=== PATIENT | female | born 1950 | race Caucasian/White ===

== ENCOUNTER 2016-11-11 02:26 | Emergency (ER) | payer OTHER ==
[~2016-11-11] VITALS: Ht 170.2 cm; Wt 94.6 kg
[~2016-11-11 02:26] MED LIST: ACET-1256 PO; CYCL10TA6 PO; NIAC1TAB54 PO; NVLGI SQ; OMEG10007 PO; OXYC15TA89 PO; OXYC1CAP5 PO; TRAM-10 PO
[2016-11-11 02:30] VITALS: Ht 170.2 cm; Wt 94.6 kg
[2016-11-11] MEDS ORDERED: ONDANSETRON 4MG OD TAB PO ONE (02:45)
[2016-11-11] MEDS ORDERED: MoRPHine SULFATE 10 MG/ML CARP/VIAL IM STA (02:45)
--- NOTE | 2016-11-11 03:17 | EMERGENCY ROOM VISIT NOTE ---
History First contact with patient: 02:34 Chief Complaint: BACK PAIN Stated Complaint: BACK PAIN History of Present Illness The patient is a 66 year old female who presents to the Emergency Room with complaints of a flareup of her chronic back pain. She reports that she has had back pain for 10 years which worsens occasionally. She states that she previously saw his surgeon in the [place] area, who recommended that she had surgery, but she was not cleared from a cardiac perspective. She sees her primary care provider for her chronic back pain. She has seen Dr. Altamirano in the past. The patient takes tramadol at home and occasionally takes oxycodone. She states that her pain worsened tonight. It does feel similar to her chronic back pain. She rates the discomfort a 9/10. She denies any numbness or weakness. She denies any bowel or bladder incontinence or urinary symptoms. She denies any abdominal pain, fevers/chills. Review of Systems A complete 10-point Review of Systems was discussed with the patient, with pertinent positives and negatives listed in the History of Present Illness. All remaining Review of Systems questions can be considered negative unless otherwise specified. Past Medical/Surgical History Medical Problems: (1) AC MYOCARD INFARCT,OTH INFERIOR WALL,INIT EPIS CAR (2) ACQ SPONDYLOLISTHESIS (3) Acute pancreatitis (4) ANXIETY STATE NOS (5) ATHEROSCLEROSIS NOS (6) CAD (coronary artery disease) (7) CORONARY ATHEROSCLEROSIS OF [place] CORONARY VESSEL (8) DIAB EULA WO COMPL, TYPE II OR UNSPEC TYPE, NOT UNCNTRLD (9) HYPERLIPIDEMIA NEC/NOS (10) HYPERTENSION NOS (11) Left Knee DJD (12) SCIATICA (13) TOBACCO USE DISORDER (14) Ulcer Surgical Problems: (1) History of appendectomy Family History Diabetes mellitus FH: heart disease FHx: early [place] Hypertension Social History Smoking Status: Never Smoker Alcohol Use: none Marital Status: Housing Status: lives with family Occupation Status: retired Current/Historical Medications Scheduled Amlodipine (Norvasc), 5 MG PO QAM Aspirin (Aspirin Ec), 81 MG PO QAM Atorvastatin (Lipitor), 40 MG PO QPM Cholecalciferol (Vitamin D3), 1 TAB PO DAILY Citalopram (Citalopram Hydrobromide), 40 MG PO QAM Ferrous Gluconate (Ferrous Gluconate), 324 MG PO BIDM Fish Oil ([place]-3), 1 CAP PO BID Furosemide (Furosemide), 20 MG PO QAM Insulin Aspart (Novolog), 2 UNITS SQ QAM Insulin Aspart (Novolog), 4 UNITS SQ BIDM Insulin Detemir (Levemir), 30 UNITS SC BID Lisinopril (Zestril), 40 MG PO QAM Metoprolol Succinate (Metoprolol Succinate ER), 100 MG PO QPM Niacin (Antihyperlipidemic) (Niacin Er), 1,500 MG PO HS Omeprazole (Prilosec), 20 MG PO BID Prasugrel Hcl (Effient), 10 MG PO QAM Scheduled PRN Acetaminophen (Tylenol), 1,000 MG PO Q8 PRN for Pain or Fever Clonazepam (Clonazepam), 0.5-1 TAB PO TID PRN for RN Cyclobenzaprine Hcl (Flexeril), 1 TAB PO HS PRN for PRN Nitroglycerin (Nitrostat), 0.4 MG UT UD PRN for Chest Pain Oxycodone Hcl (Oxycontin), 15 MG PO Q4H PRN for RN Oxycodone Hcl (Oxycodone Hcl), 5 MG PO Q6 PRN for Pain Tramadol (Ultram), 50 MG PO Q4H PRN for Pain Allergies Coded Allergies: Iodinated Diagnostic Agents (Verified Allergy, Intermediate, ITCHING WITH IVP DYE, 09/21/16) Pregabalin (Verified Adverse Reaction, Severe, PANCREATITIS, 09/21/16) Sitagliptin (Verified Adverse Reaction, Severe, PANCREATITIS, 09/21/16) Physical Exam Vital Signs Date Time Temp Pulse Resp B/P Pulse Ox O2 Delivery O2 Flow Rate FiO2 11/11/16 03:26 71 18 102/63 95 11/11/16 02:30 79 18 125/78 97 Room Air Physical Exam VITALS: Vitals are noted on the nurse's note and reviewed by myself. No abnormalities noted. GENERAL: This is a 66-year-old female, in no acute distress, nondiaphoretic, well-developed well-nourished. SKIN: The skin was without rashes, erythema, edema, or bruising. HEART: Regular rate and rhythm without murmurs gallops or rubs. LUNGS: Clear to auscultation bilaterally without wheezes, rales or rhonchi. ABDOMEN: Soft, nontender to palpation. MUSCULOSKELETAL: No muscle atrophy, erythema, or edema noted of the back. There is no tenderness over the lumbar spinous processes. There is no tenderness over the paraspinous muscles. There are no muscle spasms present. Negative straight leg raise test. Strength 5/5 bilateral lower extremities. NEURO: Patient was alert and oriented to person place and time. Normal sensation to light and sharp touch. Deep tendon reflexes 2+ in the lower extremities. Dorsalis pedis pulse 2+ bilaterally. Heel and toe walking is normal. Medical Decision & Procedures Medications Administered Medications (Trade) Dose Ordered Sig/Mateo Route Start Time Stop Time Status Last Admin Dose Admin Morphine Sulfate (MoRPHine SULFATE INJ) 10 mg NOW STAT IM 11/11/16 02:45 11/11/16 02:48 DC 11/11/16 02:52 10 MG Ondansetron HCl (Zofran Odt) 4 mg ONE ONCE PO 11/11/16 02:45 11/11/16 02:48 DC 11/11/16 02:52 4 MG Medical Decision Differential diagnosis includes cauda equina syndrome, cord compression, chronic low back pain, muscle spasm, lumbar strain, epidural abscess, malignancy , among others. The patient was evaluated as above. Previous records were reviewed. The patient has been seen here previously for flareups of her chronic back pain. She was given 10 mg morphine IM and 4 mg Zofran ODT. She will follow-up with her primary care provider for further treatment of her chronic back pain. She verbalized understanding and was discharged home in good condition with her driving. The patient was independently evaluated by Dr. Child, ED attending physician , who agreed with my assessment and treatment plan. Impression Primary Impression: Acute exacerbation of chronic low back pain Departure Information Dispostion Home / Self-Care Condition GOOD Referrals Moira Killian M.D. (PCP) Patient Instructions [facility] Additional Instructions You have been treated in the Emergency Department for Back Pain. You have received pain medicine in the emergency department which impairs your ability to operate a vehicle. It is illegal for you to drive after receiving these medicines. For pain control, you can use the following [id number] medicines (if >12 yo): - Regular strength (325mg/tab) Tylenol (acetaminophen) 2 tabs every 4-6 hours as needed. Do not exceed 12 tablets in a 24 hour period. Avoid taking more than 4 grams (4000 mg) of Tylenol per day. This includes any other sources of acetaminophen you may take on a regular basis. - Regular strength (200 mg/tab) Advil (ibuprofen) 1-2 tabs every 4-6 hours as needed. Do not exceed a dose of 3200 mg per day. If this is an acute injury, ice can be applied to the area of pain for the first 3 days to help decrease pain and inflammation. After the first 3 days, a heating pad can be used over the area for continued soothing relief. You should schedule a follow-up appointment in 2-3 days with your Primary Care Provider for further evaluation and treatment of your back pain. Return to the Emergency Department if your current symptoms worsen despite treatment course outlined above, or if you develop any of the following symptoms : intractable pain despite aforementioned treatment course, loss of control of your bowel or bladder, numbness or tingling in your groin, or development of a fever.
[2016-11-11 03:26] VITALS: BP 102/63; PULSE 71; O2SAT 95
--- NOTE | 2016-11-11 07:13 | EMERGENCY ROOM VISIT NOTE ---
ED Visit Note First contact with patient: 02:34 I have personally evaluated and examined this patient. I agree with assessment and plan of Mari Haley PA-C. 66 yr old female with chronic back issues and periodic flares arrives with typical pain exacerbation. She has no neuro deficits. Post Morphine feeling much improved and requesting discharge. Stable and in no distress at time of discharge.
[2016-11-23] MEDS ORDERED: FERR325T18 PO (00:08)
[2016-11-23] MEDS ORDERED: LISI40TA PO (02:04)
[2016-11-23] MEDS ORDERED: CHOL1000 PO (07:20)
[2016-11-23] MEDS ORDERED: LVMI SC (13:58)
[2016-11-23] MEDS ORDERED: PRAS1TAB6 PO (13:58)
[2016-11-23] MEDS ORDERED: KLN1X PO (13:58)
[2016-11-23] MEDS ORDERED: OMEP20CA9 PO (15:49)
[2016-11-23] MEDS ORDERED: CITA40TA4 PO (15:49)
[2016-11-23] MEDS ORDERED: TPRSR/100 PO (15:49)
[2016-11-23] MEDS ORDERED: LSX20 PO (15:49)
[2016-12-08] MEDS ORDERED: TRAM-10 PO (09:50)
== END 2016-11-11 03:27 | disposition home or self-care (01) ==
LOC: C.EDB 02:27 → C.EDA 03:27
DX: M54.5 Low back pain (principal); G89.29 Other chronic pain; F17.200 Nicotine dependence, unspecified, uncomplicated; F41.9 Anxiety disorder, unspecified; I25.10 Atherosclerotic heart disease of native coronary artery without angina pectoris; E11.9 Type 2 diabetes mellitus without complications; E78.5 Hyperlipidemia, unspecified; I10 Essential (primary) hypertension; Z79.82 Long term (current) use of aspirin; Z79.4 Long term (current) use of insulin

== ENCOUNTER 2016-11-15 18:17 | Emergency (ER) | payer OTHER ==
[~2016-11-15] VITALS: Ht 170.2 cm; Wt 94.3 kg
[2016-11-15 18:22] VITALS: BP 137/82; PULSE 73; TEMP 36.6; O2SAT 96; Ht 170.2 cm; Wt 94.3 kg
[2016-11-15] MEDS ORDERED: ONDANSETRON 4MG OD TAB PO STA (19:51)
[2016-11-15] MEDS ORDERED: MoRPHine SULFATE 10 MG/ML CARP/VIAL IM STA (19:51)
[2016-11-15] MEDS ORDERED: HYDR-5688 PO (19:54)
--- NOTE | 2016-11-19 08:46 | EMERGENCY ROOM VISIT NOTE ---
ED Visit Note First contact with patient: 18:37 Chief Complaint: Back pain. History of Present Illness: Ms. London is a 66-year-old white female who ambulates into the ED accompanied by a male friend complaining of lumbar back pain. Historically patient reports she has a history of diabetes, chronic back pain and coronary artery disease. Patient reports approximate 4 hours before she arrived in the emergency department she was getting out of her car when she twisted her back and felt a popping sensation and had an acute onset of pain. She then reports she was then walking down stairs in her house, lost her balance and slid down 2 stairs on her buttocks. Since that time she reports she's been having severe pain in the lower back. She describes her pain as a deep achy sensation that becomes sharp with movement. She rates her discomfort 9/10. Her pain is radiating into both buttocks but not down the legs. Her pain worsens with all movements of the back and palpation. She has not identified any alleviating factors related to the pain. She reports she has not taken any medication for pain prior to arrival at the hospital. She denies any associated symptoms including fevers, chills, sweats, skin eruptions, skin color changes, neck and thoracic back pain , striking her head at the time of the fall, loss of consciousness at the time of the fall, chest pain, shortness of breath, abdominal pain, nausea, vomiting, lower extremity weakness/numbness/tingling, genital/rectal paresthesias, bowel and bladder dysfunction. Review of Systems: As noted above in history of present illness. All body systems were reviewed and found to be negative as noted above. Past Medical History: Coronary artery disease, [place] 3 with stent placement, hypertension, hypercholesterolemia, gastric reflux, hiatal hernia, obesity, degenerative joint disease, status post total left knee arthroplasty. Current Medications: Medications Dose Route/Sig Max Daily Dose Days Date Category Dose Instructions Oxycodone Hcl 5 Mg Cap 5 Mg PO Q6 PRN 30 09/21/16 Reported take as needed for pain Ferrous Gluconate 324 Mg Tab 324 Mg PO BIDM 09/21/16 Reported Tylenol (Acetaminophen) 500 Mg Tab 1,000 Mg PO Q8 PRN 09/21/16 Reported Vitamin D3 (Cholecalciferol) 1,000 Unit Tab 1 Tab PO DAILY 30 08/24/16 Reported [place]-3 (Fish Oil) 1 Ea Cap 1 Cap PO BID 07/27/16 Reported Flexeril (Cyclobenzaprine Hcl) 10 Mg Tab 1 Tab PO HS PRN 30 07/27/16 Reported Effient (Prasugrel Hcl) 10 Mg Tab 10 Mg PO QAM 07/27/16 Reported Levemir (Insulin Detemir) 100 Units/Ml Inj 30 Units SC BID 07/27/16 Reported Oxycontin (Oxycodone Hcl) 15 Mg Tab 15 Mg PO Q4H PRN 07/27/16 Reported Clonazepam 1 Mg Tab 0.5-1 Tab PO TID PRN 07/27/16 Reported Citalopram Hydrobromide (Citalopram) 40 Mg Tab 40 Mg PO QAM 06/22/16 Reported Prilosec (Omeprazole) 20 Mg Cap 20 Mg PO BID 06/22/16 Reported TAKE THIS MEDICATION TWICE DAILY 30 MINUTES BEFORE A MEAL. Niacin Er (Niacin (Antihyperlipidemic)) 750 Mg Tab 1,500 Mg PO HS 06/22/16 Reported TAKE TWO TABLETS AT BEDTIME AFTER A LOW FAT SNACK. Furosemide 20 Mg Tab 20 Mg PO QAM 06/22/16 Reported Metoprolol Succinate ER (Metoprolol Succinate) 100 Mg Tabcr 100 Mg PO QPM 06/22/16 Reported Novolog (Insulin Aspart) Inj 4 Units SQ BIDM 06/04/16 Reported ADMINISTER 4 UNITS BEFORE LUNCH & SUPPER Novolog (Insulin Aspart) Inj 2 Units SQ QAM 06/04/16 Reported ADMINISTER BEFORE BREAKFAST Norvasc (Amlodipine Besylate) 5 Mg Tab 5 Mg PO QAM 06/04/16 Reported Nitrostat (Nitroglycerin) 0.4 Mg Sub 0.4 Mg UT UD PRN 07/14/[address] ONE TABLET UNDER THE TONGUE EVERY 5 MINUTES FOR UP TO 3 DOSES IF NEEDED FOR CHEST PAIN. Lipitor (Atorvastatin) 40 Mg Tab 40 Mg PO QPM 07/14/15 Reported Aspirin Ec (Aspirin) 81 Mg Tab 81 Mg PO QAM 07/14/15 Reported Zestril (Lisinopril) 40 Mg Tab 40 Mg PO QAM 03/15/12 Reported Ultram (Tramadol HCl) 50 Mg Tab 50 Mg PO Q4H PRN 09/08/08 Reported Allergies to Medications: Contrast dye, pregabalin, sitagliptin. Social History: Patient is currently employed; she lives with her and feels safe in her home environment; she denies tobacco and alcohol use. Physical Examination: Vital Signs: Date Time Temp Pulse Resp B/P Pulse Ox O2 Delivery O2 Flow Rate FiO2 11/15/16 18:22 36.6 73 18 137/82 96 Room Air GENERAL: 66-year-old female in mild to moderate distress due to pain, nontoxic- appearing, afebrile and hemodynamically stable. Patient is found pacing around her room. NEUROLOGICAL: Awake, alert and oriented to person, place and time. Answering questions appropriately and following commands. Normal gait. Good hand eye coordination. No focal motor sensory deficits. SKIN: Warm, dry and pink. No soft tissue trauma noted. BACK: No tenderness over the bony cervical and thoracic spine. No CVA tenderness. Mild to moderate tenderness over the L5-S1 area bilaterally in a bandlike fashion across the back. No muscle spasm palpable. No bony deformity or crepitus of the lumbar or sacral spine. Positive straight leg raise test; patient was not able to relax and I believe this test is invalid. THORAX: Lungs sounds are clear to auscultation and equal bilaterally with symmetrical chest wall. No wheezing, rales or rhonchi. No crepitus, tenderness , subcutaneous air or deformities noted. HEART: Regular rate and rhythm. No gallops, rubs or murmurs are appreciated. ABDOMEN: Flat, soft and nontender. Positive bowel sounds in all quadrants. No guarding, rigidity or organomegaly. LOWER EXTREMITIES: No gross bony deformity. 3/5 muscle strength in flexion, extension, abduction and abduction of the hips, flexion and extension of the knees, plantar flexion and dorsiflexion of the ankles and flexion and extension of the great toes. 2+ patellar and Achilles deep tendon reflexes intact and equal bilaterally. She was able to distinguish light sensations through all dermatomes of the lower legs and feet. Feet were warm and pink and capillary refill is brisk. ED Course: Patient is assessed as noted above. Patient was given an injection of 8 mg of morphine IV and was given 4 mg of Zofran IV. I did have a lengthy conversation with the patient concerning pain management she reports she has been talking to her family physician who will be putting her on [place] 5/325 mg tablet 3 times a day for pain control. She reports this is supposed to start in the next week; because of her fall and pain I did report that I would start this program but she would need to follow-up with her family doctor to have it continued. Patient was educated about tonight's findings and instructed on her treatment plan; she verbalized understanding and agreement with this plan. Clinical Impression: Acute on chronic back pain. Disposition: Patient discharged home in stable condition accompanied by her ; prior to departure she was reassessed and subjectively reported she was feeling better and rated her discomfort 4/10. Plan: Patient was prescribed Hawley 02/09/2025 every 8 hours as needed for pain. Patient was encouraged to continue her other medications. Patient was encouraged to follow-up with her PCP. Patient was encouraged return the ED for worsening pain, fevers, rectal/genital paresthesias, bowel and bladder dysfunction, lower extremity weakness/numbness/ tingling or any new/concerning symptoms.
[2016-11-23] MEDS ORDERED: FERR325T18 PO (00:08)
[2016-11-23] MEDS ORDERED: LISI40TA PO (02:04)
[2016-11-23] MEDS ORDERED: CHOL1000 PO (07:20)
[2016-11-23] MEDS ORDERED: KLN1X PO (13:58)
[2016-11-23] MEDS ORDERED: LVMI SC (13:58)
[2016-11-23] MEDS ORDERED: PRAS1TAB6 PO (13:58)
[2016-11-23] MEDS ORDERED: CITA40TA4 PO (15:49)
[2016-11-23] MEDS ORDERED: OMEP20CA9 PO (15:49)
[2016-11-23] MEDS ORDERED: TPRSR/100 PO (15:49)
[2016-11-23] MEDS ORDERED: LSX20 PO (15:49)
[2016-12-08] MEDS ORDERED: TRAM-10 PO (09:50)
== END 2016-11-15 20:56 | disposition home or self-care (01) ==
LOC: C.EDB 18:18 → C.EDD 20:56
DX: M54.5 Low back pain (principal); G89.29 Other chronic pain; I25.10 Atherosclerotic heart disease of native coronary artery without angina pectoris; I25.2 Old myocardial infarction; I10 Essential (primary) hypertension; E78.00 Pure hypercholesterolemia, unspecified; K21.9 Gastro-esophageal reflux disease without esophagitis; Z96.652 Presence of left artificial knee joint

== ENCOUNTER 2016-11-23 16:50 | Emergency (ER) | payer OTHER ==
[~2016-11-23] VITALS: Ht 170.2 cm; Wt 94.3 kg
[~2016-11-23 16:50] MED LIST changes: +CHOL1000 PO; +CITA40TA4 PO; +FERR325T18 PO; +HYDR-5688 PO; +KLN1X PO; +LISI40TA PO; +LSX20 PO; +LVMI SC; +OMEP20CA9 PO; +PRAS1TAB6 PO; +TPRSR/100 PO
[2016-11-23 16:53] VITALS: TEMP 36.5; Ht 170.2 cm; Wt 94.3 kg
[2016-11-23] MEDS ORDERED: NVLG SQ (17:15)
[2016-11-23 18:14] LABS: BASO % 0.6 %; BASO ABS # 0.04 K/uL (0-0.2); COMPLETE YES; EOS % 4.2 %; HEMATOCRIT 34.9 % (37-47); IG% 0.4 %; LYMPH ABS # 2.88 K/uL (1.2-3.4); MEAN CELL VOLUME 79.5 fL (80-100); MEAN CORPUSCULAR HEMOGLOBIN 25.3 pg (25-34); MEAN CORPUSCULAR HGB CONC 31.8 g/dl (32-36); MEAN PLATELET VOLUME 8.7 fL (7.4-10.4); MONO % 10.8 %; PLATELET COUNT 352 K/uL (130-400); RED BLOOD COUNT 4.39 M/uL (4.2-5.4); WHITE BLOOD COUNT 6.69 K/uL (4.8-10.8)
[2016-11-23 18:32] LABS: ALT/SGPT 16 U/L (12-78); BLOOD UREA NITROGEN 25 mg/dl (7-18); BUN/CREATININE RATIO 19.4 (10-20); CALCIUM 8.6 mg/dl (8.5-10.1); CARBON DIOXIDE 21 mmol/L (21-32); CHLORIDE 106 mmol/L (98-107); GLUCOSE 175 mg/dl (70-99); POTASSIUM 4.2 mmol/L (3.5-5.1); SODIUM 139 mmol/L (136-145)
[2016-11-23 18:35] LABS: ALKALINE PHOSPHATASE 85 U/L (45-117); AST/SGOT 13 U/L (15-37)
--- NOTE | 2016-11-23 18:49 | DIAGNOSTIC IMAGING REPORT ---
CT LUMBAR SPINE WITHOUT CT DOSE: 1187.26 mGy.cm CLINICAL HISTORY: Ongoing pain after fall TECHNIQUE: Axial images of the lumbar spine were obtained without IV contrast. Sagittal and coronal reconstructions were viewed. COMPARISON STUDY: Lumbar spine CT June 04, 2016. FINDINGS: 7 mm of anterolisthesis of L4 and L5 is unchanged since exam of June 04, 2016. No acute fracture is identified. Slight concavity of the superior endplate of L3 is unchanged. No suspicious lesion is identified. Disc space narrowing at multiple levels is again noted. This is most pronounced at L4-L5. This vacuum disc phenomenon at this level. Central canal and neural foramen are suboptimally assessed by CT. Severe central canal stenosis is noted at L4-L5. This appears unchanged. There is central canal stenosis at L2-L3, L4-L5 and L5-S1 as well. Scarring within the upper pole of the left kidney is incidentally noted. There is extensive atherosclerotic plaque of the abdominal aorta. IMPRESSION: 1. No acute lumbar spine fracture or subluxation. 2. No change in grade I anterolisthesis of L4 and L5 since CT of June 04, 2016. 3. Severe central canal stenosis at L4-L5 which appears similar to prior exam. Central canal stenosis at multiple additional levels which is suboptimally assessed by CT. Moderate multilevel degenerative disc disease and facet arthrosis. Electronically signed by: Wolfgang Baumann M.D. 11/23/2016 6:48 PM Dictated Date/Time: 11/23/2016 6:42 PM
--- NOTE | 2016-11-23 19:29 | EMERGENCY ROOM VISIT NOTE ---
ED Visit Note First contact with patient: 17:02 Patient was seen by our PA/FORM DRAFTER. I was involved in the patient's care and did evaluate the patient myself. I was involved in the care throughout the ER stay. The patient presents with lower back pain. She has no neurologic deficits. She has a history of back issues. Workup here is unrevealing. She does have some spinal stenosis on CT but this has been known. The patient is being discharged with Ultram for pain, she has used this in the past with success. Follow up with her doctors office and possibly pain management were suggested.
[2016-11-23] MEDS ORDERED: TRAMADOL HCL 50 MG HOME PACK PO ONE (19:30)
[2016-11-23] MEDS ORDERED: NORCO 5/325MG HOME PACK PO ONE (19:30)
[2016-11-23] MEDS ORDERED: TRAM-10 PO (19:32)
[2016-11-23 19:44] LABS: URINE APPEARANCE CLEAR (CLEAR); URINE BILIRUBIN NEG (NEG); URINE COLOR YELLOW; URINE EPITHELIAL CELL AUTO 20-30 /lpf (0-5); URINE NITRITE NEG (NEG); URINE PH 5.5 (4.5-7.5); URINE SPECIFIC GRAVITY 1.019 (1.000-1.030); UROBILINOGEN NEG (NEG)
[2016-11-23 19:46] LABS: MANUAL MICROSCOPIC REQUIRED? NO; REVIEW REQ? NO
[2016-11-23 19:49] VITALS: BP 134/72; PULSE 78; O2SAT 98
[2016-11-23] MEDS ORDERED: AMLO-110 PO (22:20)
[2016-11-23] MEDS ORDERED: NITR0.4S UT (23:03)
[2016-11-23] MEDS ORDERED: ASPI81TA28 PO (23:03)
[2016-11-23] MEDS ORDERED: LPT/40 PO (23:03)
--- NOTE | 2016-11-24 00:43 | EMERGENCY ROOM VISIT NOTE ---
ED Visit Note First contact with patient: 17:02 Chief Complaint: Back pain. History of Present Illness: Ms. London is a 66-year-old white female who ambulates into the ED accompanied by a her complaining of lumbar back pain. Historically patient reports she has a history of diabetes, chronic back pain and coronary artery disease. I did see Ms. London on November 15 for exacerbation of her chronic back pain. Tonight she reports approximately 2 weeks ago she was walking her daughters dog and was pulled to the ground; this information was not provided earlier. Patient reports approximate last 2 days before she arrived in the emergency department she was having increasing pain in the bilateral sacroiliac joint area. Since that time she reports she's been having severe pain in the lower back. She describes her pain as a deep achy sensation that becomes sharp with movement. She rates her discomfort 9/10. Her pain is radiating into both buttocks but not down the legs. Her pain worsens with all movements of the back and palpation. She has not identified any alleviating factors related to the pain. She reports she has not taken any medication for pain prior to arrival at the hospital. She denies any associated symptoms including fevers, chills, sweats, skin eruptions, skin color changes, neck and thoracic back pain , striking her head at the time of the fall, loss of consciousness at the time of the fall, chest pain, shortness of breath, abdominal pain, nausea, vomiting, lower extremity weakness/numbness/tingling, genital/rectal paresthesias, bowel and bladder dysfunction. Review of Systems: As noted above in history of present illness. All body systems were reviewed and found to be negative as noted above. Past Medical History: Coronary artery disease, [place] 3 with stent placement, hypertension, hypercholesterolemia, gastric reflux, hiatal hernia, obesity, degenerative joint disease, status post total left knee arthroplasty. Current Medications: Medications Dose Route/Sig Max Daily Dose Days Date Category Dose Instructions Novolog (Insulin Aspart) 100 Units/Ml Inj SQ AC 11/23/16 Reported [place] 5MG/325MG (Acetaminophen/Hydrocodone Bitart) Tab 1 Tablet PO Q8 PRN 11/15/16 Rx For Initial Treatment Ferrous Gluconate 324 Mg Tab 324 Mg PO DAILY 09/21/16 Reported Vitamin D3 (Cholecalciferol) 1,000 Unit Tab 1 Tab PO DAILY 30 08/24/16 Reported Effient (Prasugrel Hcl) 10 Mg Tab 10 Mg PO QAM 07/27/16 Reported Levemir (Insulin Detemir) 100 Units/Ml Inj 30 Units SC BID 07/27/16 Reported Clonazepam 1 Mg Tab 0.5-1 Tab PO TID PRN 07/27/16 Reported Citalopram Hydrobromide (Citalopram) 40 Mg Tab 40 Mg PO QAM 06/22/16 Reported Prilosec (Omeprazole) 20 Mg Cap 20 Mg PO BID 06/22/16 Reported TAKE THIS MEDICATION TWICE DAILY 30 MINUTES BEFORE A MEAL. Furosemide 20 Mg Tab 20 Mg PO QAM 06/22/16 Reported Metoprolol Succinate ER (Metoprolol Succinate) 100 Mg Tabcr 100 Mg PO QPM 06/22/16 Reported Norvasc (Amlodipine Besylate) 5 Mg Tab 5 Mg PO QAM 06/04/16 Reported Nitrostat (Nitroglycerin) 0.4 Mg Sub 0.4 Mg UT UD PRN 07/14/[address] ONE TABLET UNDER THE TONGUE EVERY 5 MINUTES FOR UP TO 3 DOSES IF NEEDED FOR CHEST PAIN. Lipitor (Atorvastatin) 40 Mg Tab 40 Mg PO QPM 07/14/15 Reported Aspirin Ec (Aspirin) 81 Mg Tab 81 Mg PO QAM 07/14/15 Reported Zestril (Lisinopril) 40 Mg Tab 40 Mg PO QAM 03/15/12 Reported Ultram (Tramadol HCl) 50 Mg Tab 50 Mg PO Q4H PRN 09/08/08 Reported Allergies to Medications: Contrast dye, pregabalin, sitagliptin. Social History: Patient is currently employed; she lives with her and feels safe in her home environment; she denies tobacco and alcohol use. Physical Examination: Vital Signs: Date Time Temp Pulse Resp B/P Pulse Ox O2 Delivery O2 Flow Rate FiO2 11/23/16 19:49 78 20 134/72 98 11/23/16 18:59 70 18 130/72 97 Room Air 11/23/16 16:53 36.5 73 18 131/66 99 Room Air GENERAL: 66-year-old female in mild to moderate distress due to pain, nontoxic- appearing, afebrile and hemodynamically stable. Patient is found lying on the bed slightly somnolent but easily arousable to verbal stimuli. NEUROLOGICAL: She is alert and oriented to person, place and time. Answering questions appropriately and following commands. Normal gait. Good hand eye coordination. No focal motor sensory deficits. SKIN: Warm, dry and pink. No soft tissue trauma noted. BACK: No tenderness over the bony cervical and thoracic spine. No CVA tenderness. Mild to moderate tenderness over the L5-S1 area bilaterally in a bandlike fashion across the back. No muscle spasm palpable. No bony deformity or crepitus of the lumbar or sacral spine. Positive straight leg raise test; patient was not able to relax and I believe this test is invalid. THORAX: Lungs sounds are clear to auscultation and equal bilaterally with symmetrical chest wall. No wheezing, rales or rhonchi. No crepitus, tenderness , subcutaneous air or deformities noted. HEART: Regular rate and rhythm. No gallops, rubs or murmurs are appreciated. ABDOMEN: Slightly obese, soft and nontender. Positive bowel sounds in all quadrants. No guarding, rigidity or organomegaly. LOWER EXTREMITIES: No gross bony deformity. 3/5 muscle strength in flexion, extension, abduction and abduction of the hips, flexion and extension of the knees, plantar flexion and dorsiflexion of the ankles and flexion and extension of the great toes. 2+ patellar and Achilles deep tendon reflexes intact and equal bilaterally. She was able to distinguish light sensations through all dermatomes of the lower legs and feet. Feet were warm and pink and capillary refill is brisk. ED Course: Patient is assessed as noted above. Laboratory Testing: Test 11/23/16 18:05 11/23/16 19:03 Range/Units White Blood Count 6.69 4.8-10.8 K/uL Red Blood Count 4.39 4.2-5.4 M/uL Hemoglobin 11.1 12.0-16.0 g/dL Hematocrit 34.9 37-47 % Mean Corpuscular Volume 79.5 80-100 fL Mean Corpuscular Hemoglobin 25.3 25-34 pg Mean Corpuscular Hemoglobin Concent 31.8 32-36 g/dl Platelet Count 352 130-400 K/uL Mean Platelet Volume 8.7 7.4-10.4 fL Neutrophils (%) (Auto) 41.0 % Lymphocytes (%) (Auto) 43.0 % Monocytes (%) (Auto) 10.8 % Eosinophils (%) (Auto) 4.2 % Basophils (%) (Auto) 0.6 % Neutrophils # (Auto) 2.74 1.4-6.5 K/uL Lymphocytes # (Auto) 2.88 1.2-3.4 K/uL Monocytes # (Auto) 0.72 0.11-0.59 K/uL Eosinophils # (Auto) 0.28 0-0.5 K/uL Basophils # (Auto) 0.04 0-0.2 K/uL RDW Standard Deviation 47.6 36.4-46.3 fL RDW Coefficient of Variation 16.3 11.5-14.5 % Immature Granulocyte % (Auto) 0.4 % Immature Granulocyte # (Auto) 0.03 0.00-0.02 K/uL Sodium Level 139 136-145 mmol/L Potassium Level 4.2 3.5-5.1 mmol/L Chloride Level 106 98-107 mmol/L Carbon Dioxide Level 21 21-32 mmol/L Anion Gap 12.0 3-11 mmol/L Blood Urea Nitrogen 25 7-18 mg/dl Creatinine 1.30 0.60-1.20 mg/dl Est Creatinine Clear Calc Drug Dose 50.9 ml/min Estimated GFR () 49.9 Estimated GFR (Non- 43.0 BUN/Creatinine Ratio 19.4 10-20 Random Glucose 175 70-99 mg/dl Calcium Level 8.6 8.5-10.1 mg/dl Total Bilirubin 0.4 0.2-1 mg/dl Direct Bilirubin < 0.1 0-0.2 mg/dl Aspartate Amino Transf (AST/SGOT) 13 15-37 U/L Alanine Aminotransferase (ALT/SGPT) 16 12-78 U/L Alkaline Phosphatase 85 45-117 U/L Total Protein 7.9 6.4-8.2 gm/dl Albumin 3.7 3.4-5.0 gm/dl Lipase 231 73-393 U/L Urine Color YELLOW Urine Appearance CLEAR CLEAR Urine pH 5.5 4.5-7.5 Urine Specific [place] 1.019 1.000-1.030 Urine Protein NEG NEG Urine Glucose (UA) NEG NEG Urine Ketones NEG NEG Urine Occult Blood NEG NEG Urine Nitrite NEG NEG Urine Bilirubin NEG NEG Urine Urobilinogen NEG NEG Urine Leukocyte Esterase TRACE NEG Urine WBC (Auto) 1-5 0-5 /hpf Urine RBC (Auto) 0-4 0-4 /hpf Urine Hyaline Casts (Auto) 1-5 0-5 /lpf Urine Epithelial Cells (Auto) 20-30 0-5 /lpf Urine Bacteria (Auto) NEG NEG Lower Spine CT Scan: Was reviewed by myself and read by the radiologist showing no acute lumbar or spinal fractures or subluxations. No change in the grade 1 anterolisthesis of L4-L5 from previous CT and severe canal stenosis at L4-L5 which is similar to prior exam. Patient was educated about tonight's findings and instructed on her treatment plan; she verbalized understanding and agreement with this plan. Clinical Impression: Acute on chronic back pain. Disposition: Patient discharged home in stable condition accompanied by her ; prior to departure she was reassessed and subjectively reported she was feeling better and rated her discomfort 4/10. Plan: Patient was prescribed Ultram 5100 mg every 6 hours as needed for pain. Patient was given a small prescription of [place] tablets for breakthrough pain. Other comfort measures were discussed with the patient clinging proper lifting techniques and ice. Patient was encouraged to keep with her family care provider for definitive care and treatment. Patient was encouraged to return ED for uncontrolled pain, fevers, chills, skin eruptions, leg weakness/numbness/tingling, inability to control bowel and bladder function, genital/rectal paresthesia new/concerning symptoms.
[2016-12-08] MEDS ORDERED: TRAM-10 PO (09:50)
== END 2016-11-23 19:50 | disposition home or self-care (01) ==
LOC: C.EDB 16:54 → C.EDD 19:50
DX: M54.9 Dorsalgia, unspecified (principal); G89.29 Other chronic pain; I10 Essential (primary) hypertension; E78.00 Pure hypercholesterolemia, unspecified; I25.10 Atherosclerotic heart disease of native coronary artery without angina pectoris; I25.2 Old myocardial infarction; K21.9 Gastro-esophageal reflux disease without esophagitis

== ENCOUNTER 2017-03-19 11:04 | Emergency (ER) | payer OTHER ==
[~2017-03-19] VITALS: Ht 165.1 cm; Wt 92.1 kg
[~2017-03-19 11:04] MED LIST changes: -ACET-1256 PO; +AMLO-110 PO; +ASPI81TA28 PO; -CYCL10TA6 PO; -HYDR-5688 PO; +LPT/40 PO; -NIAC1TAB54 PO; +NITR0.4S UT; +NVLG SQ; -NVLGI SQ; -OMEG10007 PO; -OXYC15TA89 PO; -OXYC1CAP5 PO
[2017-03-19 11:06] VITALS: TEMP 36.7; Ht 165.1 cm; Wt 92.1 kg
[2017-03-19] MEDS ORDERED: CLONAZEPAM 1 MG TAB PO STA (11:41)
[2017-03-19] MEDS ORDERED: HYDROCODONE/ACETAMOPHEN 5/325MG TAB PO STA (11:41)
--- NOTE | 2017-03-19 12:12 | EMERGENCY ROOM VISIT NOTE ---
ED Visit Note First contact with patient: 11:27 I have seen and examined this patient with Johana Silver and generally agree with the treatment plan as discussed. Problem List Medical Problems: (1) AC MYOCARD INFARCT,OTH INFERIOR WALL,INIT EPIS CAR Status: Chronic (2) ACQ SPONDYLOLISTHESIS Status: Chronic (3) Acute pancreatitis Status: Resolved (4) ANXIETY STATE NOS Status: Chronic (5) ATHEROSCLEROSIS NOS Status: Chronic (6) CAD (coronary artery disease) Status: Chronic (7) CORONARY ATHEROSCLEROSIS OF [place] CORONARY VESSEL Status: Chronic (8) DIAB EULA WO COMPL, TYPE II OR UNSPEC TYPE, NOT UNCNTRLD Status: Chronic (9) HYPERLIPIDEMIA NEC/NOS Status: Chronic (10) HYPERTENSION NOS Status: Chronic (11) SCIATICA Status: Chronic (12) TOBACCO USE DISORDER Status: Chronic (13) Ulcer Status: Chronic Surgical Problems: (1) History of appendectomy Status: Chronic Current/Historical Medications Scheduled Amlodipine (Norvasc), 5 MG PO QAM Aspirin (Aspirin Ec), 81 MG PO QAM Atorvastatin (Lipitor), 40 MG PO QPM Cholecalciferol (Vitamin D3), 1 TAB PO DAILY Citalopram (Citalopram Hydrobromide), 40 MG PO QAM Ferrous Gluconate (Ferrous Gluconate), 324 MG PO DAILY Furosemide (Furosemide), 20 MG PO QAM Insulin Aspart (Novolog), SQ AC Insulin Detemir (Levemir), 30 UNITS SC BID Lisinopril (Zestril), 40 MG PO QAM Metoprolol Succinate (Metoprolol Succinate ER), 100 MG PO QPM Omeprazole (Prilosec), 20 MG PO BID Prasugrel Hcl (Effient), 10 MG PO QAM Tramadol (Ultram), 200 MG PO HS Scheduled PRN Clonazepam (Clonazepam), 0.5-1 TAB PO TID PRN for RN Nitroglycerin (Nitrostat), 0.4 MG UT UD PRN for Chest Pain Allergies Coded Allergies: Niacin (Verified Allergy, Severe, ITCHING,BURNING, 03/19/17) Iodinated Diagnostic Agents (Verified Allergy, Intermediate, ITCHING WITH IVP DYE, 03/19/17) Pregabalin (Verified Adverse Reaction, Severe, PANCREATITIS, 03/19/17) Sitagliptin (Verified Adverse Reaction, Severe, PANCREATITIS, 03/19/17) Vital Signs Date Time Temp Pulse Resp B/P (MAP) Pulse Ox O2 Delivery O2 Flow Rate FiO2 03/19/17 11:06 36.7 69 18 154/82 95 Room Air Medications Administered Medications (Trade) Dose Ordered Sig/Mateo Route Start Time Stop Time Status Last Admin Dose Admin Clonazepam (Klonopin Tab) 1 mg NOW STAT PO 03/19/17 11:41 03/19/17 11:43 DC 03/19/17 12:00 1 MG Acetaminophen/ Hydrocodone Bitart ([place] 5/325 Tab) 2 tab NOW STAT PO 03/19/17 11:41 03/19/17 11:44 DC 03/19/17 12:00 2 TAB Departure Information Referrals Moira Killian M.D. (PCP) Patient Instructions [facility]
--- NOTE | 2017-03-19 12:42 | EMERGENCY ROOM VISIT NOTE ---
History First contact with patient: 11:27 Chief Complaint: NECK PAIN Stated Complaint: NECK PAIN History of Present Illness The patient is a 66 year old female who presents to the Emergency Room with complaints of left-sided neck pain. The patient has chronic neck pain and fell asleep last evening in her living room chair. She fell out of the chair while she was sleeping and woke up abruptly as she hit the floor. The patient denies any headache, visual changes, dizziness or loss of consciousness. The patient states that the pain is mainly on the left side of her neck into her shoulder. The patient denies any numbness and tingling in her extremities. The patient denies any arm weakness. The patient states that prior to her fall she took tramadol 200 mg mid day. She also had taken a muscle relaxer clonazepam before bed. She has not taken anything since the injury occurred. Review of Systems 6 system review was performed and was negative unless stated otherwise in history of present illness. Past Medical/Surgical History Medical Problems: (1) AC MYOCARD INFARCT,OTH INFERIOR WALL,INIT EPIS CAR (2) ACQ SPONDYLOLISTHESIS (3) Acute pancreatitis (4) ANXIETY STATE NOS (5) ATHEROSCLEROSIS NOS (6) CAD (coronary artery disease) (7) CORONARY ATHEROSCLEROSIS OF [place] CORONARY VESSEL (8) DIAB EULA WO COMPL, TYPE II OR UNSPEC TYPE, NOT UNCNTRLD (9) HYPERLIPIDEMIA NEC/NOS (10) HYPERTENSION NOS (11) Left Knee DJD (12) SCIATICA (13) TOBACCO USE DISORDER (14) Ulcer Surgical Problems: (1) History of appendectomy Family History Diabetes mellitus FH: heart disease FHx: early [place] Hypertension Social History Smoking Status: Never Smoker Alcohol Use: none Marital Status: Housing Status: lives with family Occupation Status: retired Current/Historical Medications Scheduled Amlodipine (Norvasc), 5 MG PO QAM Aspirin (Aspirin Ec), 81 MG PO QAM Atorvastatin (Lipitor), 40 MG PO QPM Cholecalciferol (Vitamin D3), 1 TAB PO DAILY Citalopram (Citalopram Hydrobromide), 40 MG PO QAM Ferrous Gluconate (Ferrous Gluconate), 324 MG PO DAILY Furosemide (Furosemide), 20 MG PO QAM Insulin Aspart (Novolog), SQ AC Insulin Detemir (Levemir), 30 UNITS SC BID Lisinopril (Zestril), 40 MG PO QAM Metoprolol Succinate (Metoprolol Succinate ER), 100 MG PO QPM Omeprazole (Prilosec), 20 MG PO BID Prasugrel Hcl (Effient), 10 MG PO QAM Tramadol (Ultram), 200 MG PO HS Scheduled PRN Clonazepam (Clonazepam), 0.5-1 TAB PO TID PRN for RN Nitroglycerin (Nitrostat), 0.4 MG UT UD PRN for Chest Pain Allergies Coded Allergies: Niacin (Verified Allergy, Severe, ITCHING,BURNING, 03/19/17) Iodinated Diagnostic Agents (Verified Allergy, Intermediate, ITCHING WITH IVP DYE, 03/19/17) Pregabalin (Verified Adverse Reaction, Severe, PANCREATITIS, 03/19/17) Sitagliptin (Verified Adverse Reaction, Severe, PANCREATITIS, 03/19/17) Physical Exam Vital Signs Date Time Temp Pulse Resp B/P (MAP) Pulse Ox O2 Delivery O2 Flow Rate FiO2 03/19/17 11:06 36.7 69 18 154/82 95 Room Air Physical Exam GENERAL: 66-year-old white female appears in no acute distress. MENTAL Status: Alert and oriented 3. HEAD: Atraumatic, nontender to palpation. EYES: PERRLA. EOMs intact. NEURO:Cranial nerves two through 12 intact. Cerebellar function intact with [id number]. Fine motor intact with alternating finger motions. CERVICAL SPINE: No gross bony deformity noted. The patient is nontender to palpation over the spinous processes. She is tender to palpation over the left paravertebral region, over the left trapezius. Full range of motion with pain elicited with flexion, right rotation and right lateral bending. Muscle strength is 5 out of 5 bilateral upper extremities and symmetrical. Medical Decision & Procedures Medications Administered Medications (Trade) Dose Ordered Sig/Mateo Route Start Time Stop Time Status Last Admin Dose Admin Clonazepam (Klonopin Tab) 1 mg NOW STAT PO 03/19/17 11:41 03/19/17 11:43 DC 03/19/17 12:00 1 MG Acetaminophen/ Hydrocodone Bitart ([place] 5/325 Tab) 2 tab NOW STAT PO 03/19/17 11:41 03/19/17 11:44 DC 03/19/17 12:00 2 TAB ED Course The patient was evaluated. The patient was given clonazepam 1 mg by mouth and [place] 5/325 mg 2 tablets by mouth for pain. She was also placed in a soft cervical collar. The patient was independently evaluated by Dr. Mcgarry who agreed with treatment plan. The patient was reevaluated and was feeling much better. The patient was discharged home with her spouse driving. Medical Decision I did not feel x-rays were necessary since the patient did not have any tenderness over the spinous processes. Impression Primary Impression: Strain of cervical portion of left trapezius muscle Departure Information Dispostion Home / Self-Care Condition GOOD Referrals Moira Killian M.D. (PCP) Forms HOME CARE DOCUMENTATION FORM, IMPORTANT VISIT INFORMATION, WORK / SCHOOL INSTRUCTIONS Patient Instructions [facility] elicit Additional Instructions Continue tramadol as prescribed for pain. Also continue your clonazepam as directed. Wear soft cervical collar until pain is tolerable without it. If symptoms are not improving in 3-5 days recommend follow-up with your family physician or Dr. Altamirano
[2017-03-19 13:13] VITALS: BP 148/79; PULSE 63; O2SAT 97
== END 2017-03-19 13:15 | disposition home or self-care (01) ==
LOC: C.EDB 11:05 → C.EDD 13:15
DX: S46.912A Strain of unspecified muscle, fascia and tendon at shoulder and upper arm level, left arm, initial encounter (principal); X58.XXXA Exposure to other specified factors, initial encounter; I21.3 ST elevation (STEMI) myocardial infarction of unspecified site; F41.9 Anxiety disorder, unspecified; I70.90 Unspecified atherosclerosis; I25.10 Atherosclerotic heart disease of native coronary artery without angina pectoris; E11.9 Type 2 diabetes mellitus without complications; E78.5 Hyperlipidemia, unspecified; I10 Essential (primary) hypertension; Z83.3 Family history of diabetes mellitus; Z82.49 Family history of ischemic heart disease and other diseases of the circulatory system; Z79.82 Long term (current) use of aspirin; Z79.4 Long term (current) use of insulin

== ENCOUNTER 2017-03-26 13:47 | Emergency (ER) | payer OTHER ==
[~2017-03-26] VITALS: Ht 170.2 cm; Wt 91.0 kg
[2017-03-26] MEDS ORDERED: FURO-85 PO (14:20)
--- NOTE | 2017-03-26 14:48 | EMERGENCY ROOM VISIT NOTE ---
History Report prepared by Olivia: Rock Nuñez Under the Supervision of: Dr. Collin Mcgarry M.D. First contact with patient: 13:56 Chief Complaint: DIZZY Stated Complaint: DIZZINESS,OFF BALANCE,WEAKNESS Nursing Triage Summary: pt to the ED with c/o dizziness like the room is spinning and ongoing head pain on the left side where she hit her head and has c/o ongoing neck problems and arthritis History of Present Illness The patient is a 66 year old female who presents to the Emergency Room with complaints of dizziness that occurred yesterday. She notes that she feels slightly better today, but it is still present. She states that whenever she walks, she feels off balance and that she is going to fall down. She also has a slight headache secondary to her previous fall. Everything else is normal since her fall. She is currently on Effient. She has a past medical history of arthritis which is causing her neck pain. She denies any abdominal pain. Source of History: patient Onset: yesterday Position: other (global) Symptom Intensity: moderate Quality: other (Dizziness) Timing: constant Modifying Factors (Worsening): movement Associated Symptoms: + headache, + neck pain, No LOC, No abdominal pain Review of Systems See HPI for pertinent positives & negatives. A total of 10 systems reviewed and were otherwise negative. Past Medical & Surgical Medical Problems: (1) AC MYOCARD INFARCT,OTH INFERIOR WALL,INIT EPIS CAR (2) ACQ SPONDYLOLISTHESIS (3) Acute pancreatitis (4) ANXIETY STATE NOS (5) ATHEROSCLEROSIS NOS (6) CAD (coronary artery disease) (7) CORONARY ATHEROSCLEROSIS OF [place] CORONARY VESSEL (8) DIAB EULA WO COMPL, TYPE II OR UNSPEC TYPE, NOT UNCNTRLD (9) HYPERLIPIDEMIA NEC/NOS (10) HYPERTENSION NOS (11) Left Knee DJD (12) SCIATICA (13) TOBACCO USE DISORDER (14) Ulcer Surgical Problems: (1) History of appendectomy Family History Diabetes mellitus FH: heart disease FHx: early IN Hypertension Social History Smoking Status: Former Smoker Alcohol Use: none Marital Status: Housing Status: lives with family Occupation Status: retired Current/Historical Medications Scheduled Amlodipine (Norvasc), 5 MG PO QAM Amoxicillin & Pot Clavulanate (Augmentin 875-125 mg), 1 TAB PO BID Aspirin (Aspirin Ec), 81 MG PO QAM Atorvastatin (Lipitor), 40 MG PO QPM Cholecalciferol (Vitamin D3), 1 TAB PO DAILY Citalopram (Citalopram Hydrobromide), 40 MG PO QAM Ferrous Gluconate (Ferrous Gluconate), 324 MG PO QPM Furosemide (Furosemide), 20 MG PO 4XWK Furosemide (Lasix), 40 MG PO 3XWK Insulin Aspart (Novolog), SQ AC Insulin Detemir (Levemir), 30 UNITS SC BID Lisinopril (Zestril), 40 MG PO QAM Metoprolol Succinate (Metoprolol Succinate ER), 100 MG PO QPM Omeprazole (Prilosec), 20 MG PO BID Prasugrel Hcl (Effient), 10 MG PO QAM Tramadol (Ultram), 200 MG PO HS Scheduled PRN Clonazepam (Clonazepam), 0.5-1 TAB PO TID PRN for RN Meclizine Hcl (Meclizine Hcl), 1 TAB PO TID PRN for Dizziness or Vertigo Nitroglycerin (Nitrostat), 0.4 MG UT UD PRN for Chest Pain Allergies Coded Allergies: Niacin (Verified Allergy, Severe, ITCHING,BURNING, 03/26/17) Iodinated Diagnostic Agents (Verified Allergy, Intermediate, ITCHING WITH IVP DYE, 03/26/17) Pregabalin (Verified Adverse Reaction, Severe, PANCREATITIS, 03/26/17) Sitagliptin (Verified Adverse Reaction, Severe, PANCREATITIS, 03/26/17) Physical Exam Vital Signs Date Time Temp Pulse Resp B/P (MAP) Pulse Ox O2 Delivery O2 Flow Rate FiO2 03/26/17 15:01 123/57 03/26/17 14:51 98 Room Air 03/26/17 14:47 63 13 99 03/26/17 14:31 114/49 03/26/17 14:17 60 14 96 03/26/17 14:15 61 125/54 98 68 123/66 70 110/58 03/26/17 14:11 110/58 03/26/17 14:10 123/66 03/26/17 14:09 125/54 03/26/17 14:04 65 03/26/17 14:02 110/65 03/26/17 13:49 36.7 70 16 126/86 95 Room Air Physical Exam GENERAL: Patient is a healthy-appearing well-nourished female HEAD: Normocephalic atraumatic EYES: Ocular movements intact pupils equal and react to light OROPHARYNX mucous membranes are moist no exudates present no erythema or edema present NECK: Supple no nuchal rigidity CHEST: Good equal expansion LUNGS: Clear and equal to auscultation CARDIAC: Normal S1 and S2 ABDOMEN: Soft nontender no guarding BACK: No CVA tenderness EXTREMITIES: No pain upon palpation normal muscle strength in all groups no clubbing cyanosis or edema NEURO: Patient is following commands and answering questions appropriately. Alert and oriented x3 Cranial Nerves 2-12 grossly intact Medical Decision & Procedures ER Provider Diagnostic Interpretation: Radiology results as stated below per my review and radiologist interpretation: HEAD CT NONCONTRAST CT DOSE: HISTORY: Mental status change Pt c/o dizziness TECHNIQUE: Multiaxial CT images of the head were performed without the use of intravenous contrast. Comparison: 06/08/2013 Findings: Bilateral maxillary acute sinusitis. All remaining sinuses are clear. Density characteristics of the cerebellar as well as cerebral hemispheres are unremarkable. There is minimal chronic small vessel change. There is no midline shift. There is no evidence for acute intracranial hemorrhage. The calvarium and skull base are intact. The ventricles and sulci are within normal limits. There is no mass, hematoma, midline shift, or acute infarct. Impression: Bilateral maxillary sinusitis. Chronic small vessel change of aging. Otherwise negative CT of the brain Electronically signed by: Flako Silver M.D. 03/26/2017 4:00 PM Dictated Date/Time: 03/26/2017 3:[address] DOSE: 1072.07 mGy.cm HISTORY: Pain Pt c/o neck and head pain TECHNIQUE: Multiaxial CT images of the cervical spine were performed and reformatted in the sagittal and coronal plane without the use of contrast. COMPARISON: None. FINDINGS: Moderate degenerative intervertebral this changes from C4 through T1. Grade 1 anterolisthesis of C4 and C5 felt to be secondary to degenerative changes of posterior elements. No acute bony abnormality. No evidence for fracture or compression deformity. IMPRESSION: Moderate degenerative change of the mid to lower cervical region. No acute process. Bilateral maxillary sinusitis. Electronically signed by: Flako Silver M.D. 03/26/2017 4:02 PM Dictated Date/Time: 03/26/2017 4:00 PM Laboratory Results 03/26/17 15:04 Red Blood Count 4.51, Mean Corpuscular Volume 82.5, Mean Corpuscular Hemoglobin 25.9, Mean Corpuscular Hemoglobin Concent 31.5, Mean Platelet Volume 9.0, Neutrophils (%) (Auto) 48.4, Lymphocytes (%) (Auto) 37.0, Monocytes (%) (Auto) 9.9, Eosinophils (%) (Auto) 3.5, Basophils (%) (Auto) 0.6, Neutrophils # (Auto) 3.34, Lymphocytes # (Auto) 2.55, Monocytes # (Auto) 0.68, Eosinophils # (Auto) 0.24, Basophils # (Auto) 0.04 03/26/17 15:04 Test 03/26/17 14:50 03/26/17 15:04 Urine Color YELLOW Urine Appearance CLEAR (CLEAR) Urine pH 5.0 (4.5-7.5) Urine Specific [place] 1.011 (1.000-1.030) Urine Protein NEG (NEG) Urine Glucose (UA) NEG (NEG) Urine Ketones NEG (NEG) Urine Occult Blood NEG (NEG) Urine Nitrite NEG (NEG) Urine Bilirubin NEG (NEG) Urine Urobilinogen NEG (NEG) Urine Leukocyte Esterase NEG (NEG) White Blood Count 6.89 K/uL (4.8-10.8) Red Blood Count 4.51 M/uL (4.2-5.4) Hemoglobin 11.7 g/dL (12.0-16.0) Hematocrit 37.2 % (37-47) Mean Corpuscular Volume 82.5 fL (80-100) Mean Corpuscular Hemoglobin 25.9 pg (25-34) Mean Corpuscular Hemoglobin Concent 31.5 g/dl (32-36) Platelet Count 317 K/uL (130-400) Mean Platelet Volume 9.0 fL (7.4-10.4) Neutrophils (%) (Auto) 48.4 % Lymphocytes (%) (Auto) 37.0 % Monocytes (%) (Auto) 9.9 % Eosinophils (%) (Auto) 3.5 % Basophils (%) (Auto) 0.6 % Neutrophils # (Auto) 3.34 K/uL (1.4-6.5) Lymphocytes # (Auto) 2.55 K/uL (1.2-3.4) Monocytes # (Auto) 0.68 K/uL (0.11-0.59) Eosinophils # (Auto) 0.24 K/uL (0-0.5) Basophils # (Auto) 0.04 K/uL (0-0.2) RDW Standard Deviation 51.0 fL (36.4-46.3) RDW Coefficient of Variation 16.9 % (11.5-14.5) Immature Granulocyte % (Auto) 0.6 % Immature Granulocyte # (Auto) 0.04 K/uL (0.00-0.02) Anion Gap 5.0 mmol/L (3-11) Est Creatinine Clear Calc Drug Dose 54.1 ml/min Estimated GFR () 54.9 Estimated GFR (Non- 47.4 BUN/Creatinine Ratio 21.2 (10-20) Bedside Glucose 120 mg/dl (70-90) Calcium Level 8.1 mg/dl (8.5-10.1) Total Bilirubin 0.5 mg/dl (0.2-1) Direct Bilirubin 0.1 mg/dl (0-0.2) Aspartate Amino Transf (AST/SGOT) 10 U/L (15-37) Alanine Aminotransferase (ALT/SGPT) 19 U/L (12-78) Alkaline Phosphatase 84 U/L (45-117) Total Protein 7.0 gm/dl (6.4-8.2) Albumin 3.3 gm/dl (3.4-5.0) Thyroid Stimulating Hormone (TSH) 1.140 uIu/ml (0.300-4.500) Labs reviewed by ED physician. Medications Administered Medications (Trade) Dose Ordered Sig/Mateo Route Start Time Stop Time Status Last Admin Dose Admin Sodium Chloride 1,000 ml @ 999 mls/hr Q1H1M STAT IV 03/26/17 15:07 03/26/17 16:07 DC 03/26/17 15:38 999 MLS/HR Meclizine HCl (Antivert Tab) 25 mg NOW STAT PO 03/26/17 15:07 03/26/17 15:09 DC 03/26/17 15:38 25 MG ECG Indication: other (Dizziness) Rate (beats per minute): 64 Rhythm: normal sinus Findings: no acute ischemic change, no ectopy ED Course 1356: Past medical records reviewed. The patient was evaluated in room B12. A complete history and physical examination was performed. 1507: Ordered Antivert Tab 25 mg PO, Sodium Chloride 1000 ml @ 999 mls/hr IV 1615: Ordered Sodium Chloride 2 sprays NA, Augmentin Tab 875 mg PO 1626: Upon reexamination the patient is resting. I discussed results and treatment plan with the patient. She verbalizes agreement and understanding. The patient is ready for discharge. Medical Decision Differential diagnosis: Etiologies such as benign positional vertigo, dehydration, hypovolemia, anemia, tumor, infection, hypoglycemia, electrolyte abnormalities, cardiac sources, intracerebral event, toxicologic, neurologic, as well as others were entertained. Medication Reconciliation: I attest that I have personally reviewed the patient' s current medication list Blood Pressure Screening: Patient was found to have normal blood pressure on screening and does not require follow up. This is a 66-year-old female who presents emergency department complaining of dizziness when moving her head. She was started on meclizine in the emergency department and given IV normal saline bolus. She has a normal CBC normal renal profile. CAT scan of her head and neck do not show any acute process except for sinusitis. The patient is feeling much better with meclizine of fluid and I feel she can be safely discharged home. She was started on Augmentin in the emergency department which I will continue at home. I encouraged follow-up with ear nose and throat. Patient was in agreement with the treatment plan. Impression Primary Impression: Sinusitis Additional Impression: Vertigo Scribe Attestation The scribe's documentation has been prepared under my direction and personally reviewed by me in its entirety. I confirm that the note above accurately reflects all work, treatment, procedures, and medical decision making performed by me. Departure Information Dispostion Home / Self-Care Prescriptions Meclizine Hcl (MECLIZINE HCL) 25 Mg Tab 1 TAB PO TID Y for Dizziness or Vertigo for 10 Days, #30 TAB Prov: Collin Mcgarry MD 03/26/17 Amoxicillin & Pot Clavulanate (Augmentin 875-125 mg) 1 Tab Tab 1 TAB PO BID for 10 Days, #20 TAB Prov: Collin Mcgarry MD 03/26/17 Referrals Moira Killian M.D. (PCP) Forms HOME CARE DOCUMENTATION FORM, IMPORTANT VISIT INFORMATION, School Instructions, Work Instructions Patient Instructions Dizziness Vertigo Inner Ear, ED BPV Vertigo, ED Sinusitis Abx Tx, My [facility] Additional Instructions Take probiotic yogurt You have been examined and treated today on an emergency basis only. This is not a substitute for, or an effort to provide, complete comprehensive medical care. It is impossible to recognize and treat all injuries or illnesses in a single emergency department visit. It is therefore important that you follow up closely with Dr Killian. Call as soon as possible for an appointment. Thank you for your time and consideration. I look forward to speaking with you again soon. Please don't hesitate to call us if you have any questions. Problem Qualifiers Primary Impression: Sinusitis Sinusitis location: maxillary Chronicity: acute Recurrence: recurrent Qualified Codes: J01.01 - Acute recurrent maxillary sinusitis
[2017-03-26 14:51] VITALS: O2SAT 98
[2017-03-26 15:04] VITALS: Ht 170.2 cm; Wt 91.0 kg
[2017-03-26] MEDS ORDERED: MECLIZINE HCL 25 MG TAB PO STA (15:07)
[2017-03-26] MEDS ORDERED: SODIUM CHLORIDE 0.9% 1000ML 1,000 ML IV STA (15:07)
[2017-03-26 15:11] LABS: URINE APPEARANCE CLEAR (CLEAR); URINE BILIRUBIN NEG (NEG); URINE COLOR YELLOW; URINE NITRITE NEG (NEG); URINE SPECIFIC GRAVITY 1.011 (1.000-1.030); UROBILINOGEN NEG (NEG)
[2017-03-26 15:15] LABS: BASO % 0.6 %; BASO ABS # 0.04 K/uL (0-0.2); COMPLETE YES; EOS % 3.5 %; HEMATOCRIT 37.2 % (37-47); IG% 0.6 %; LYMPH ABS # 2.55 K/uL (1.2-3.4); MEAN CELL VOLUME 82.5 fL (80-100); MEAN CORPUSCULAR HEMOGLOBIN 25.9 pg (25-34); MEAN CORPUSCULAR HGB CONC 31.5 g/dl (32-36); MONO % 9.9 %; NEUT % 48.4 %; PLATELET COUNT 317 K/uL (130-400); RED BLOOD COUNT 4.51 M/uL (4.2-5.4); WHITE BLOOD COUNT 6.89 K/uL (4.8-10.8)
[2017-03-26 15:22] LABS: MANUAL MICROSCOPIC REQUIRED? NO; REVIEW REQ? NO
[2017-03-26 15:33] LABS: BUN/CREATININE RATIO 21.2 (10-20); CALCIUM 8.1 mg/dl (8.5-10.1); CREATININE 1.2 mg/dl (0.60-1.20); POTASSIUM 4.6 mmol/L (3.5-5.1)
[2017-03-26 15:44] LABS: THYROID STIMULATING HORMONE 1.14 uIu/ml (0.300-4.500)
--- NOTE | 2017-03-26 16:01 | DIAGNOSTIC IMAGING REPORT ---
HEAD CT NONCONTRAST CT DOSE: HISTORY: Mental status change Pt c/o dizziness TECHNIQUE: Multiaxial CT images of the head were performed without the use of intravenous contrast. Comparison: 06/08/2013 Findings: Bilateral maxillary acute sinusitis. All remaining sinuses are clear. Density characteristics of the cerebellar as well as cerebral hemispheres are unremarkable. There is minimal chronic small vessel change. There is no midline shift. There is no evidence for acute intracranial hemorrhage. The calvarium and skull base are intact. The ventricles and sulci are within normal limits. There is no mass, hematoma, midline shift, or acute infarct. Impression: Bilateral maxillary sinusitis. Chronic small vessel change of aging. Otherwise negative CT of the brain Electronically signed by: Flako Silver M.D. 03/26/2017 4:00 PM Dictated Date/Time: 03/26/2017 3:59 PM
--- NOTE | 2017-03-26 16:03 | DIAGNOSTIC IMAGING REPORT ---
CERVICAL SPINE CT CT DOSE: 1072.07 mGy.cm HISTORY: Pain Pt c/o neck and head pain TECHNIQUE: Multiaxial CT images of the cervical spine were performed and reformatted in the sagittal and coronal plane without the use of contrast. COMPARISON: None. FINDINGS: Moderate degenerative intervertebral this changes from C4 through T1. Grade 1 anterolisthesis of C4 and C5 felt to be secondary to degenerative changes of posterior elements. No acute bony abnormality. No evidence for fracture or compression deformity. IMPRESSION: Moderate degenerative change of the mid to lower cervical region. No acute process. Bilateral maxillary sinusitis. Electronically signed by: Flako Silver M.D. 03/26/2017 4:02 PM Dictated Date/Time: 03/26/2017 4:00 PM
[2017-03-26] MEDS ORDERED: MECL1TAB42 PO (16:14)
[2017-03-26] MEDS ORDERED: AMOX875T PO (16:14)
[2017-03-26] MEDS ORDERED: SODIUM CHLORIDE 0.65% NA SOLN 45 ML (OCEAN) ONE (16:15)
[2017-03-26] MEDS ORDERED: AMOXICILLIN/CLAVULANATE TAB 875 MG TAB PO ONE (16:15)
[2017-03-26 16:53] VITALS: BP 121/58; PULSE 63; TEMP 36.7; O2SAT 98
== END 2017-03-26 16:54 | disposition home or self-care (01) ==
LOC: C.EDB 13:48
DX: J01.01 Acute recurrent maxillary sinusitis (principal); R42 Dizziness and giddiness; I25.2 Old myocardial infarction; M43.10 Spondylolisthesis, site unspecified; I70.90 Unspecified atherosclerosis; I25.10 Atherosclerotic heart disease of native coronary artery without angina pectoris; E11.9 Type 2 diabetes mellitus without complications; E78.5 Hyperlipidemia, unspecified; I10 Essential (primary) hypertension; M54.30 Sciatica, unspecified side; M17.9 Osteoarthritis of knee, unspecified; Z87.891 Personal history of nicotine dependence; Z83.3 Family history of diabetes mellitus; Z82.49 Family history of ischemic heart disease and other diseases of the circulatory system; Z79.82 Long term (current) use of aspirin; Z79.4 Long term (current) use of insulin; Z79.899 Other long term (current) drug therapy

== ENCOUNTER → 2017-07-19 | Outpatient (CLI) | payer OTHER ==
[~2017-07-19] MED LIST changes: +FURO-85 PO
--- NOTE | 2017-07-19 14:15 | DIAGNOSTIC IMAGING REPORT ---
MODIFIED BARIUM SWALLOW CLINICAL HISTORY: Pneumonitis due to inhalation. COMPARISON STUDY: No previous studies for comparison. Fluoroscopy time: 1.8 minutes. FINDINGS: No aspiration was identified within liquids, nectar thick liquids, pudding or crackers with paste. Swallowing mechanism was intact. Note was made of a small hiatal hernia. IMPRESSION: 1. No tracheal aspiration. Intact swallowing mechanism. 2. Small hiatal hernia. 3. Full recommendations by speech pathology to follow. Electronically signed by: Wolfgang Baumann M.D. 07/19/2017 2:14 PM Dictated Date/Time: 07/19/2017 2:09 PM
--- NOTE | 2017-07-19 15:58 | SWALLOWING EVALUATION ---
REFERRING SPEECH PATHOLOGIST: n/a HISTORY: This 66 year-old female was referred for a VFSS at [facility] in order to address diagnosis of reflux and hiatal hernia and possible food/vomit pneumonitis. The patient has a PMH significant for [place], CAD, hypertension, hyperlipidemia, DM II, spondylolithesis, chronic neck pain and tobacco use. She denies dysphagia and odynophagia. Per her report she has not had a Barium Swallow study or other test to assess esophageal function despite diagnosis of hiatal hernia. Currently the patient's diet level is regular. PROCEDURE: The patient was seen in the Radiology Department of [facility] for the VFSS. Cursory examination of the oral cavity revealed adequate dentition. Movement of the articulators was WNL. The patient was seated on a stool and was viewed in both the Anterior-Posterior (A-P) and Lateral planes. Volitional phonation exercises completed in the A-P plane revealed bilateral vocal fold movement and vocal intensity within functional limits. In the lateral plane, the patient was given the following boluses: 1 tsp. thin liquid barium x 2, single swallow thin liquid barium self-presented from a cup, sequential swallows of thin liquid barium self-presented from a cup, 1 tsp. nectar-thick liquid barium, single swallow nectar-thick liquid barium self-presented from a cup, 1 tsp. barium pudding, and 1 club cracker with barium pudding. The patient was then repositioned into the A-P plane and given 1 tsp. barium pudding. RESULTS: Oral Stage: Labial seal, lingual control, mastication, bolus transport, oral clearance, and initiation of the pharyngeal swallow were all complete. The oral stage of the swallow functions WNL. Pharyngeal Stage: Soft palate elevation, laryngeal elevation, anterior hyoid excursion, epiglottic inversion, laryngeal vestibular closure, pharyngeal stripping wave, pharyngeal contraction, distention and duration of PES opening, tongue base retraction, and pharyngeal clearance were all complete. There was no penetration or aspiration during this study. The pharyngeal stage of the swallow functions WNL. Esophageal Stage: No impedance as pudding bolus transited the esophagus. SUMMARY/RECOMMENDATIONS: This patient presents with normal oral-pharyngeal swallowing. The following is recommended: 1. Diet as tolerated 2. Consideration of completion of a Barium Swallow Study to assess esophageal function in the setting of known reflux and hiatal hernia and whether those are contributing to pneumonitis. A summary of the results and recommendations was discussed with the patient immediately following the study. She verbalized understanding of the normal results. Thank you for referral of this patient. Please contact me at if any additional information is needed.
== END | disposition home or self-care (01) ==
LOC: C.RAD 13:23
PROVIDERS: ATTEND Family Medicine
DX: J69.0 Pneumonitis due to inhalation of food and vomit (principal); R91.8 Other nonspecific abnormal finding of lung field; K44.9 Diaphragmatic hernia without obstruction or gangrene

== ENCOUNTER 2017-09-23 11:54 | Emergency (ER) | payer OTHER ==
[~2017-09-23] VITALS: Ht 172.7 cm; Wt 84.0 kg
[2017-09-23 11:57] VITALS: TEMP 36.2; Ht 172.7 cm; Wt 84.0 kg
--- NOTE | 2017-09-23 12:21 | EMERGENCY ROOM VISIT NOTE ---
History Report prepared by Nahidiblatisha: Sara Carcamo Under the Supervision of: Dr. Rayray Coleman M.D. First contact with patient: 12:13 Chief Complaint: HYPOGLYCEMIA Stated Complaint: DIABETIC SHOCK Nursing Triage Summary: patient helped out of car and placed in wheelchair. patient eating shad cookie on RN arrival to car. hx DM patient states "my blood sugar is crashing." patient checked BSG = 256. patient states she then took 15 units of insulin and 35units of "another insulin." patient states she has not rechecked BSG. patient attempted to go to grocery store with and c/o feeling like her blood sugar was low. BSGin triage 66. orange juice given to patient History of Present Illness The patient is a 67 year old female who presents to the Emergency Room with complaints of persistent hypoglycemia. She reports she has a history of diabetes and ate oatmeal and "a couple" of Shad cookies for breakfast this morning. After eating, she checked her BSG and it was 256, so she took 15 units of Insulin and 35 units of "another Insulin". She states she then went to the grocery store with her , and started to feel weak and dizzy, so she came to the ED. Her BSG was 66 in ED triage. The patient denies any recent fevers, back pain. Source of History: patient Onset: earlier this morning Position: other (global) Timing: other (persistent) Modifying Factors (Relieving): other (Insulin) Associated Symptoms: + diaphoresis, + weakness, No fevers, No back pain Review of Systems See HPI for pertinent positives and negatives. A total of ten systems were reviewed and were otherwise negative. Past Medical & Surgical Medical Problems: (1) AC MYOCARD INFARCT,OTH INFERIOR WALL,INIT EPIS CAR (2) ACQ SPONDYLOLISTHESIS (3) Acute pancreatitis (4) ANXIETY STATE NOS (5) ATHEROSCLEROSIS NOS (6) CAD (coronary artery disease) (7) CORONARY ATHEROSCLEROSIS OF [place] CORONARY VESSEL (8) DIAB EULA WO COMPL, TYPE II OR UNSPEC TYPE, NOT UNCNTRLD (9) HYPERLIPIDEMIA NEC/NOS (10) HYPERTENSION NOS (11) Left Knee DJD (12) SCIATICA (13) TOBACCO USE DISORDER (14) Ulcer Surgical Problems: (1) History of appendectomy Family History Diabetes mellitus FH: heart disease FHx: early [place] Hypertension Social History Smoking Status: Former Smoker Alcohol Use: none Drug Use: none Marital Status: Housing Status: lives with family Occupation Status: retired Current/Historical Medications Scheduled Amlodipine (Norvasc), 5 MG PO QAM Aspirin (Aspirin Ec), 81 MG PO QAM Atorvastatin (Lipitor), 40 MG PO QPM Cholecalciferol (Vitamin D3), 1 TAB PO DAILY Citalopram (Citalopram Hydrobromide), 40 MG PO QAM Ferrous Gluconate (Ferrous Gluconate), 324 MG PO QPM Furosemide (Furosemide), 20 MG PO 4XWK Furosemide (Lasix), 40 MG PO 3XWK Insulin Aspart (Novolog), SQ AC Insulin Detemir (Levemir), 35 UNITS SC BID Lisinopril (Zestril), 40 MG PO QAM Metoprolol Succinate (Metoprolol Succinate ER), 100 MG PO QPM Omeprazole (Prilosec), 20 MG PO BID Prasugrel Hcl (Effient), 10 MG PO QAM Scheduled PRN Clonazepam (Clonazepam), 0.5-1 TAB PO TID PRN for RN Nitroglycerin (Nitrostat), 0.4 MG UT UD PRN for Chest Pain Tramadol (Ultram), 200 MG PO HS PRN for Pain Allergies Coded Allergies: Niacin (Verified Allergy, Severe, ITCHING,BURNING, 09/23/17) Iodinated Diagnostic Agents (Verified Allergy, Intermediate, ITCHING WITH IVP DYE, 09/23/17) Pregabalin (Verified Adverse Reaction, Severe, PANCREATITIS, 09/23/17) Sitagliptin (Verified Adverse Reaction, Severe, PANCREATITIS, 09/23/17) Physical Exam Vital Signs Date Time Temp Pulse Resp B/P (MAP) Pulse Ox O2 Delivery O2 Flow Rate FiO2 09/23/17 14:23 66 122/76 97 Room Air 09/23/17 11:57 36.2 62 18 136/82 97 Room Air Physical Exam GENERAL: Awake, alert, fatigued-appearing, in no distress HENT: Normocephalic, atraumatic. Oropharynx unremarkable. EYES: Normal conjunctiva. Sclera non-icteric. NECK: Supple. No nuchal rigidity. FROM. No JVD. RESPIRATORY: Clear to auscultation. CARDIAC: Regular rate, normal rhythm. Extremities warm and well perfused. Pulses equal. ABDOMEN: Soft, non-distended. No tenderness to palpation. No rebound or guarding. No masses. RECTAL: Deferred. MUSCULOSKELETAL: Chest examination reveals no tenderness. The back is symmetrical on inspection without obvious abnormality. There is no CVA tenderness to palpation. No joint edema. LOWER EXTREMITIES: Calves are equal size bilaterally and non-tender. No edema. No discoloration. NEURO: Normal sensorium. No sensory or motor deficits noted. SKIN: No rash or jaundice noted. Medical Decision & Procedures Laboratory Results Test 09/23/17 14:20 Bedside Glucose 226 mg/dl (70-90) Laboratory results reviewed by me ECG Indication: weakness Rate (beats per minute): 58 Rhythm: sinus bradycardia Findings: no acute ischemic change, other (normal axis) ED Course 1213: The patient was evaluated in room B3. A complete history and physical exam was performed. 1435: I reevaluated the patient. She is feeling well and resting comfortably. I discussed her results and discharge instructions and she verbalized complete understanding and agreement. Medical Decision I reviewed the patient's past medical history, medications, and the nursing notes as described above. Differential Diagnoses: accidental insulin overdose. The patient is a 67 y/o woman with a Pmhx of IDDM2 who presents to the ED with episode of hypoglycemia after taking 15 units of short-acting insulin for a FSBG of 260 at home per HPI. On arrival the patient is fatigued appearing but in NAD, AFVSS. Neuro intact. FSBG on arrival 80s then improved to 100s after taking PO in ED. Subsequently given full meal for FSBG 240s. Given patient's recent insulin overdose further insulin deferred in ED but plan for patient to resume her home insulin when home. Given clear history and etiology of hypoglycemia and improvedment during observation to further w/u indicated at this time. Findings and plan for follow-up reviewed with patient. Patient agreeable and d/c'd per discharge instructions. Medication Reconcilliation Current Medication List: was personally reviewed by me Blood Pressure Screening Patient's blood pressure: Normal blood pressure Blood pressure disposition: Did not require urgent referral Impression Primary Impression: Hypoglycemia Scribe Attestation The scribe's documentation has been prepared under my direction and personally reviewed by me in its entirety. I confirm that the note above accurately reflects all work, treatment, procedures, and medical decision making performed by me. Departure Information Dispostion Home / Self-Care Referrals Moira Killian M.D. (PCP) Patient Instructions ED Diabetes Hypoglycemia Insulin React, Hypoglycemia, My [facility] Additional Instructions Please follow up with your primary care physician on Tuesday for re-evaluation and to discuss accurate use of your short acting insulin. Until a clear plan is made with your doctor, use no more than 1 unit of short- acting insulin for every glucose value of 25 above 100. For example, a value of 260 would be given 7 units of short-acting insulin. Otherwise, your exam and EKG did not show signs of an emergent condition at this time. Return to the emergency department for worsening symptoms as described in the accompanying instructions.
[2017-09-23 14:23] VITALS: BP 122/76; PULSE 66; O2SAT 97
== END 2017-09-23 14:30 | disposition home or self-care (01) ==
LOC: C.EDB 11:55
DX: E11.649 Type 2 diabetes mellitus with hypoglycemia without coma (principal); I25.2 Old myocardial infarction; M43.10 Spondylolisthesis, site unspecified; F41.9 Anxiety disorder, unspecified; I70.90 Unspecified atherosclerosis; I25.10 Atherosclerotic heart disease of native coronary artery without angina pectoris; E78.5 Hyperlipidemia, unspecified; I10 Essential (primary) hypertension; M17.12 Unilateral primary osteoarthritis, left knee; M54.30 Sciatica, unspecified side; Z87.891 Personal history of nicotine dependence; Z83.3 Family history of diabetes mellitus; Z82.49 Family history of ischemic heart disease and other diseases of the circulatory system; Z79.82 Long term (current) use of aspirin; Z79.4 Long term (current) use of insulin; Z79.899 Other long term (current) drug therapy

== ENCOUNTER 2017-12-07 20:11 | Emergency (ER) | payer OTHER ==
[~2017-12-07] VITALS: Ht 167.6 cm; Wt 91.3 kg
[2017-12-07 20:15] VITALS: TEMP 36.9; Ht 167.6 cm; Wt 91.3 kg
[2017-12-07] MEDS: MoRPHine SULFATE 10 MG/ML CARP/VIAL IM STA (20:48)
--- NOTE | 2017-12-07 20:48 | EMERGENCY ROOM VISIT NOTE ---
ED Visit Note First contact with patient: 20:21 CHIEF COMPLAINT: Low back pain HISTORY OF PRESENT ILLNESS: This 67-year-old female patient presents to the emergency department with her by private vehicle complaining of pain in the low back which began approximately 5 days ago. Patient states that she has history of spondylolisthesis and resultant chronic low back pain for the past many years. She states this is usually well controlled with as needed tramadol. She states pain is constant, worse with moving, better with rest, 8/ 10. She has been taking her tramadol up to 5 times a day without any relief. She is unable to take NSAIDs or steroids due to her other medical problems, and states that Tylenol does not work for her. She states that she has been caring for her elderly mother has been doing more lifting and bending than usual, she thinks that this has aggravated her back pain. She states that her pain is in her midline lower back and radiates to her left buttock and down the left leg. She reports a history of sciatica on the left in the past. She denies any numbness, tingling, or weakness of the leg. She denies any bowel or bladder dysfunction. She denies any saddle paresthesias. She denies any falls or direct trauma to the back. She has not had any abdominal pain, nausea or vomiting, denies chest pain or shortness of breath. She denies any dysuria or urinary frequency. REVIEW OF SYSTEMS: A complete 10 point review of systems was reviewed with the patient with pertinent positives and negatives as per history of present illness. All else were negative. ALLERGIES: Reviewed in chart. MEDICATIONS: Reviewed in chart. PMH: Reviewed in chart. SOCIAL HISTORY: Lives with her . Denies tobacco, alcohol, recreational drug use. PHYSICAL EXAM: VITALS: Vitals are noted on the nurse's note and reviewed by myself. Vital signs stable. GENERAL: Alert, pleasant and cooperative, in no acute distress, non-diaphoretic , well-developed well-nourished. SKIN: The skin was without rashes, erythema, edema, or bruising. Capillary refill less than 2 seconds. NECK: Supple without nuchal rigidity. No cervical spine tenderness. No paraspinous muscle tenderness. HEART: Regular rate and rhythm without murmurs gallops or rubs. LUNGS: Clear to auscultation bilaterally without wheezes, rales or rhonchi. ABDOMEN: Positive bowel sounds x 4. Normal tympanic percussion. Soft, nontender, without masses or organomegaly. Goldstein sign negative. MUSCULOSKELETAL: No muscle atrophy, erythema, or edema noted of the back. There is midline tenderness over the lumbosacral spinous processes. There is tenderness over the paraspinous muscles on the left and the left buttock. There is no tenderness over the thoracic spine or paraspinous muscles. There are no significant muscle spasms present. The patient is slow to move around with maximum tenderness with bending. Positive left straight leg raise test. NEURO: Patient was alert and oriented to person place and time. Normal sensation to light and sharp touch. Deep tendon reflexes 2+ in the lower extremities. Dorsalis pedis pulse 2+ bilaterally. Strength 5/5 and equal in the bilateral lower extremities. EMERGENCY DEPARTMENT COURSE: I examined the patient. Differential diagnosis includes ocular skeletal pain/strain, muscle spasm, sciatica, lumbar radiculopathy, less likely fracture or subluxation, cauda equina. Patient's exam is neurologically intact with no focal deficits of sensory or motor function, deep tendon reflexes of the bilateral lower legs are intact and normal. Patient has no red flag symptoms concerning for spinal cord involvement. Given the chronicity of the patient's back pain and no recent trauma, I do not feel imaging is necessary at this time. Patient is unable to take NSAIDs due to history of cardiac disease, and steroids are also ill advised due to her history of diabetes. I discussed with patient that chronic pain needs to be ultimately managed by her primary care provider and she did verbalize understanding. I did offer the patient an IM injection of morphine in the ED for pain control, which she requested, on reassessment she states that she feels much better and her pain is much improved. Patient was updated on continued management of her symptoms through her PCP and at home, was recommended to seek out physical therapy as a possible option, as well as given strict return precautions should her symptoms worsen, she verbalized understanding. The patient was discharged home in stable condition and ambulatory. Problem List Medical Problems: (1) AC MYOCARD INFARCT,OTH INFERIOR WALL,INIT EPIS CAR Status: Chronic (2) ACQ SPONDYLOLISTHESIS Status: Chronic (3) Acute pancreatitis Status: Resolved (4) ANXIETY STATE NOS Status: Chronic (5) ATHEROSCLEROSIS NOS Status: Chronic (6) CAD (coronary artery disease) Status: Chronic (7) CORONARY ATHEROSCLEROSIS OF [place] CORONARY VESSEL Status: Chronic (8) DIAB EULA WO COMPL, TYPE II OR UNSPEC TYPE, NOT UNCNTRLD Status: Chronic (9) HYPERLIPIDEMIA NEC/NOS Status: Chronic (10) HYPERTENSION NOS Status: Chronic (11) SCIATICA Status: Chronic (12) TOBACCO USE DISORDER Status: Chronic (13) Ulcer Status: Chronic Surgical Problems: (1) History of appendectomy Status: Chronic Current/Historical Medications Scheduled Amlodipine (Norvasc), 5 MG PO QAM Aspirin (Aspirin Ec), 81 MG PO QAM Atorvastatin (Lipitor), 40 MG PO QPM Cholecalciferol (Vitamin D3), 1 TAB PO DAILY Citalopram (Citalopram Hydrobromide), 40 MG PO QAM Ferrous Gluconate (Ferrous Gluconate), 324 MG PO QPM Furosemide (Furosemide), 20 MG PO 4XWK Furosemide (Lasix), 40 MG PO 3XWK Insulin Aspart (Novolog), SQ AC Insulin Detemir (Levemir), 35 UNITS SC BID Lisinopril (Zestril), 40 MG PO QAM Metoprolol Succinate (Metoprolol Succinate ER), 100 MG PO QPM Omeprazole (Prilosec), 20 MG PO BID Prasugrel Hcl (Effient), 10 MG PO QAM Scheduled PRN Clonazepam (Clonazepam), 0.5-1 TAB PO TID PRN for RN Nitroglycerin (Nitrostat), 0.4 MG UT UD PRN for Chest Pain Tramadol (Ultram), 200 MG PO HS PRN for Pain Allergies Coded Allergies: Niacin (Verified Allergy, Severe, ITCHING,BURNING, 09/23/17) Iodinated Diagnostic Agents (Verified Allergy, Intermediate, ITCHING WITH IVP DYE, 09/23/17) Pregabalin (Verified Adverse Reaction, Severe, PANCREATITIS, 09/23/17) Sitagliptin (Verified Adverse Reaction, Severe, PANCREATITIS, 09/23/17) Vital Signs Date Time Temp Pulse Resp B/P (MAP) Pulse Ox O2 Delivery O2 Flow Rate FiO2 12/07/17 20:52 95 Room Air 12/07/17 20:15 36.9 70 18 123/66 95 Room Air Medications Administered Medications (Trade) Dose Ordered Sig/Mateo Route Start Time Stop Time Status Last Admin Dose Admin Morphine Sulfate (MoRPHine SULFATE INJ) 8 mg NOW STAT IM 12/07/17 20:36 12/07/17 20:37 DC 12/07/17 20:48 8 MG Departure Information Impression Primary Impression: Sciatica Additional Impression: Strain of lumbar region Dispostion Home / Self-Care Condition GOOD Referrals No Doctor, Assigned (PCP) Patient Instructions ED Sciatica, ED Sprain Strain Lumbar, My [facility] Additional Instructions Take it easy for the next few days, no strenuous activity, heavy lifting, or bending/twisting motions, to allow your back to rest. Alternate heat and ice for comfort. After heat, you may do gentle stretching and massage to the low back. Continue to take your prescribed tramadol as needed for your back pain. In addition, he may take Tylenol 1000 mg every 8 hours as needed. Do not take more than 3000 mg to 24 hours. You may also take your own prescribed muscle relaxer as needed for muscle spasms Please follow up with your PCP in the next few days for further management. You may benefit from physical therapy. Please return to the ER if any problems with bowel or bladder function, numbness in your groin, high fevers, severe abdominal pain or worsening back pain, or if loss of feeling/movement of legs. Problem Qualifiers Primary Impression: Sciatica Laterality: left Qualified Codes: M54.32 - Sciatica, left side Additional Impression: Strain of lumbar region Encounter type: initial encounter Qualified Codes: S39.012A - Strain of muscle, fascia and tendon of lower back, initial encounter
[2017-12-07 20:52] VITALS: O2SAT 95
[2017-12-07 22:25] VITALS: BP 126/74; PULSE 66; O2SAT 95
== END 2017-12-07 22:27 | disposition home or self-care (01) ==
LOC: C.EDB 20:11 → C.EDD 22:27
DX: M54.32 Sciatica, left side (principal); S39.012A Strain of muscle, fascia and tendon of lower back, initial encounter; X58.XXXA Exposure to other specified factors, initial encounter; I21.9 Acute myocardial infarction, unspecified; M43.10 Spondylolisthesis, site unspecified; F41.9 Anxiety disorder, unspecified; I70.90 Unspecified atherosclerosis; I25.10 Atherosclerotic heart disease of native coronary artery without angina pectoris; E11.9 Type 2 diabetes mellitus without complications; E78.5 Hyperlipidemia, unspecified; I10 Essential (primary) hypertension; Z79.82 Long term (current) use of aspirin; Z79.4 Long term (current) use of insulin; Z88.8 Allergy status to other drugs, medicaments and biological substances

== ENCOUNTER 2018-02-10 04:09 | Emergency (ER) | payer OTHER ==
[~2018-02-10] VITALS: Ht 165.1 cm; Wt 91.6 kg
[2018-02-10 04:14] VITALS: BP 134/75; TEMP 36.3; Ht 165.1 cm; Wt 91.6 kg
--- NOTE | 2018-02-10 04:49 | EMERGENCY ROOM VISIT NOTE ---
History Report prepared by Olivia: Jhon Lakhani Under the Supervision of: Dr. Anel Arias D.O. First contact with patient: 04:34 Chief Complaint: BACK PAIN Stated Complaint: BACK PAIN History of Present Illness The patient is a 67 year old female who presents to the Emergency Room with complaints of constant back pain beginning today. The patient states that she has been experiencing back pain since 2003 due to her spondylolisthesis of L4- L5. She notes that she also has generalized arthritis and sciatica which is causing her additional pain. She reports that she typically gets bad flare ups 2 -5 times a years. The patient states that when she gets these flare ups, she usually comes to the emergency department and feels better after receiving a shot of morphine. She notes that she uses tramadol for pain on a regular basis and is on Effient. She reports that she has had three heart attacks, has diabetes, has five cardiac stents placed, and has had a left knee replacement. The patient states that she had been taking care of her ill mother. She notes that her mother a month ago, which has allowed her to become more active. She reports that her symptoms occasionally worsen when she lies down and bends over. Source of History: patient Onset: today Position: back Timing: constant Modifying Factors (Worsening): other (lying down, bending over) Modifying Factors (Relieving): other (morphine) Review of Systems See HPI for pertinent positives & negatives. A total of 10 systems reviewed and were otherwise negative. Past Medical & Surgical Medical Problems: (1) AC MYOCARD INFARCT,OTH INFERIOR WALL,INIT EPIS CAR (2) ACQ SPONDYLOLISTHESIS (3) Acute pancreatitis (4) ANXIETY STATE NOS (5) ATHEROSCLEROSIS NOS (6) CAD (coronary artery disease) (7) CORONARY ATHEROSCLEROSIS OF [place] CORONARY VESSEL (8) DIAB EULA WO COMPL, TYPE II OR UNSPEC TYPE, NOT UNCNTRLD (9) HYPERLIPIDEMIA NEC/NOS (10) HYPERTENSION NOS (11) Left Knee DJD (12) SCIATICA (13) TOBACCO USE DISORDER (14) Ulcer Surgical Problems: (1) H/O heart artery stent (2) History of appendectomy Family History Diabetes mellitus FH: heart disease FHx: early [place] Hypertension Social History Smoking Status: Former Smoker Alcohol Use: none Drug Use: none Marital Status: Housing Status: lives with family Occupation Status: retired Current/Historical Medications Scheduled Amlodipine (Norvasc), 5 MG PO QAM Aspirin (Aspirin Ec), 81 MG PO QAM Atorvastatin (Lipitor), 40 MG PO QPM Cholecalciferol (Vitamin D3), 1,000 UNITS PO DAILY Citalopram (Citalopram Hydrobromide), 40 MG PO QAM Ferrous Gluconate (Ferrous Gluconate), 324 MG PO QPM Furosemide (Furosemide), 20 MG PO 4XWK Furosemide (Lasix), 40 MG PO 3XWK Insulin Aspart (Novolog), SQ AC Insulin Detemir (Levemir), 35 UNITS SC BID Lisinopril (Zestril), 40 MG PO QAM Metoprolol Succinate (Metoprolol Succinate ER), 100 MG PO QPM Omeprazole (Prilosec), 20 MG PO BID Prasugrel Hcl (Effient), 10 MG PO QAM Scheduled PRN Clonazepam (Clonazepam), 0.5-1 TAB PO TID PRN for RN Nitroglycerin (Nitrostat), 0.4 MG UT UD PRN for Chest Pain Tramadol (Ultram), 200 MG PO HS PRN for Pain Allergies Coded Allergies: Niacin (Verified Allergy, Severe, ITCHING,BURNING, 09/23/17) Iodinated Diagnostic Agents (Verified Allergy, Intermediate, ITCHING WITH IVP DYE, 09/23/17) Pregabalin (Verified Adverse Reaction, Severe, PANCREATITIS, 09/23/17) Sitagliptin (Verified Adverse Reaction, Severe, PANCREATITIS, 09/23/17) Physical Exam Vital Signs Date Time Temp Pulse Resp B/P (MAP) Pulse Ox O2 Delivery O2 Flow Rate FiO2 02/10/18 05:45 72 17 99 02/10/18 04:14 36.3 77 16 134/75 95 Room Air Physical Exam HEENT: Head - normocephalic and atraumatic Pupils are equal, round, and reactive to light. Extraocular eye muscles are intact, and sclera are anicteric. Nose - moist nasal mucosa without discharge. Mouth - moist buccal mucosa. Oropharynx is nonerythematous and there is no tonsillar exudate or edema noted. Neck: Supple; no JVD, nuchal rigidity, cervical lymphadenopathy. Heart: Regular rate and rhythm. There is a normal S1 and S2 with no murmurs, clicks, or gallops appreciated. Lungs: Clear to auscultation bilaterally with no wheezes, rales, or rhonchi. Back: Slight discomfort with palpation over the mid to lower lumbar spine. Abdomen: Soft, completely nontender, nondistended, with good bowel sounds. There are no palpable pulsatile masses or hepatosplenomegaly. There is no guarding, rigidity, or rebound noted. Extremities: No evidence of cyanosis, clubbing, or edema. There are easily palpable peripheral pulses. Skin: warm and dry with good turgor and no rashes. Medical Decision & Procedures Medications Administered Medications (Trade) Dose Ordered Sig/Mateo Route Start Time Stop Time Status Last Admin Dose Admin Morphine Sulfate (MoRPHine SULFATE INJ) 8 mg NOW STAT IM 02/10/18 04:50 02/10/18 04:51 DC 02/10/18 05:08 8 MG Procedure Morphine Sulfate 8mg IM ED Course 0440: Past medical records reviewed. The patient was evaluated in room B3. A complete history and physical exam was performed. 0450: Morphine Sulfate 8mg IM 0537: Upon reevaluation, the patient is feeling better. I discussed findings and results with her. She verbalized agreement of the treatment plan. The patient was discharged home. Medical Decision The patient is a 67 year old female who presents to the Emergency Room with complaints of constant back pain beginning today. Differential diagnoses include : acute exacerbation of chronic lower back pain, lumbar strain, and disc herniation. This is a 67-year-old female patient with a long-standing history of chronic low back pain. She has had multiple previous visits to the emergency department over the years for acute treatment for this pain. She follows with Dr. Baez. She was given a dose of IM morphine here in the emergency department with significant relief of her pain. Medication Reconcilliation Current Medication List: was personally reviewed by me Blood Pressure Screening Patient's blood pressure: Elevated blood pressure Blood pressure disposition: Elevated BP felt to be situational Impression Primary Impression: Acute exacerbation of chronic low back pain Scribe Attestation The scribe's documentation has been prepared under my direction and personally reviewed by me in its entirety. I confirm that the note above accurately reflects all work, treatment, procedures, and medical decision making performed by me. Departure Information Dispostion Home / Self-Care Referrals Moira Killian M.D. (PCP) Forms HOME CARE DOCUMENTATION FORM, IMPORTANT VISIT INFORMATION Patient Instructions My [facility] Additional Instructions Follow up with Dr. Baez if pain persists.
[2018-02-10] MEDS ORDERED: MoRPHine SULFATE 10 MG/ML CARP/VIAL IM STA (04:50)
[2018-02-10 05:45] VITALS: PULSE 72; O2SAT 99
== END 2018-02-10 05:47 | disposition home or self-care (01) ==
LOC: C.EDB 04:10
DX: G89.29 Other chronic pain (principal); M54.5 Low back pain; I10 Essential (primary) hypertension; I25.2 Old myocardial infarction; Z79.02 Long term (current) use of antithrombotics/antiplatelets; Z79.82 Long term (current) use of aspirin; E78.5 Hyperlipidemia, unspecified; E11.9 Type 2 diabetes mellitus without complications; Z79.4 Long term (current) use of insulin; Z87.891 Personal history of nicotine dependence; Z88.8 Allergy status to other drugs, medicaments and biological substances; Z91.041 Radiographic dye allergy status

== ENCOUNTER 2018-05-10 22:52 | Emergency (ER) | payer OTHER ==
[~2018-05-10] VITALS: Ht 170.2 cm; Wt 91.7 kg
[~2018-05-10 22:52] MED LIST changes: -AMLO-110 PO; +AMLO5TAB3 PO
[2018-05-10 22:54] VITALS: TEMP 36.8; Ht 170.2 cm; Wt 91.7 kg
[2018-05-10] MEDS ORDERED: NVLNI SC (23:29)
[2018-05-10] MEDS ORDERED: DICL1GEL34 TOP (23:30)
[2018-05-10] MEDS ORDERED: MoRPHine SULFATE 10 MG/ML CARP/VIAL IM STA (23:35)
--- NOTE | 2018-05-11 00:15 | EMERGENCY ROOM VISIT NOTE ---
History Report prepared by Olivia: Violeta Crowley Under the Supervision of: Dr. Anel Arias D.O. First contact with patient: 23:04 Chief Complaint: BACK PAIN Stated Complaint: BACK PAIN History of Present Illness The patient is a 67 year old female who presents to the Emergency Room with complaints of worsening back pain starting 2 weeks ago. The patient states that she has chronic back pain and has been prescribed Tramadol and Clonazepam to use when it acts up. She states that these medications are prescribed by her PCP , Dr. Killian. She states that she was prescribed to take Tramadol once every four hours, but that doesn't work. She reports that instead she takes 200 mg of Tramadol in the afternoon all at once and it helps. She reports that she takes the Clonazepam as needed at night before bed. She notes that this is usually 2- 3 nights a week. She notes that she has been taking her medications like this for over a year. The patient states that her PCP is aware of how much she takes and when. She notes that tonight both the medications did not work. 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 She notes that the following week she attended a family reunion. She states that right after she had to prep her home and yard for her family reunion. She states that she had family from 9 different states staying with her for 3 days. She reports that her back pain feels like it is "burning" and "pulling" into her buttocks. She notes that she has slight sciatica on the left side. The patient notes that she has seen two different orthopedists, Dr. Altamirano and Dr. Joseph, who both say she is recommended for surgery, but not medically approved. The patient notes that she recently had pneumonia, but feels that all her symptoms have resolved from that. The patient denies abnormal eating/drinking and having a rescue medication at home. Source of History: patient Onset: 2 weeks ago Position: back Quality: burning, other ("pulling," sciatica) Timing: worsening Modifying Factors (Worsening): movement Modifying Factors (Relieving): other (Tramadol and Clonazepam) Note: The patient denies abnormal eating/drinking. Review of Systems See HPI for pertinent positives & negatives. A total of 10 systems reviewed and were otherwise negative. Past Medical & Surgical Medical Problems: (1) AC MYOCARD INFARCT,OTH INFERIOR WALL,INIT EPIS CAR (2) ACQ SPONDYLOLISTHESIS (3) Acute pancreatitis (4) ANXIETY STATE NOS (5) ATHEROSCLEROSIS NOS (6) CAD (coronary artery disease) (7) CORONARY ATHEROSCLEROSIS OF [place] CORONARY VESSEL (8) DIAB EULA WO COMPL, TYPE II OR UNSPEC TYPE, NOT UNCNTRLD (9) Diabetes (10) HYPERLIPIDEMIA NEC/NOS (11) HYPERTENSION NOS (12) Left Knee DJD (13) SCIATICA (14) TOBACCO USE DISORDER (15) Ulcer Surgical Problems: (1) H/O heart artery stent (2) History of appendectomy Family History Diabetes mellitus FH: heart disease FHx: early AR Hypertension Social History Smoking Status: Former Smoker Alcohol Use: none Drug Use: none Marital Status: Housing Status: lives with family Occupation Status: retired Current/Historical Medications Scheduled Amlodipine (Norvasc), 5 MG PO QAM Aspirin (Aspirin Ec), 81 MG PO QAM Atorvastatin (Lipitor), 40 MG PO QPM Cholecalciferol (Vitamin D3), 1,000 UNITS PO DAILY Citalopram (Citalopram Hydrobromide), 40 MG PO QAM Diclofenac Sodium (Topical) (Diclofenac Sodium), 1 APPLN TOP UD Ferrous Gluconate (Ferrous Gluconate), 324 MG PO QPM Furosemide (Furosemide), 20 MG PO DAILY Furosemide (Lasix), 40 MG PO 3XWK Insulin Detemir (Levemir), 1 UNIT SC UD Insulin Human NPH (Novolin N), 35 UNITS SC BIDM Lisinopril (Zestril), 40 MG PO QAM Metoprolol Succinate (Metoprolol Succinate ER), 100 MG PO QPM Omeprazole (Prilosec), 20 MG PO DAILY Prasugrel Hcl (Effient), 10 MG PO QAM Scheduled PRN Clonazepam (Clonazepam), 0.5-1 TAB PO TID PRN for RN Nitroglycerin (Nitrostat), 0.4 MG UT UD PRN for Chest Pain Tramadol (Ultram), 200 MG PO HS PRN for Pain Allergies Coded Allergies: Niacin (Verified Allergy, Severe, ITCHING,BURNING, 05/10/18) Iodinated Diagnostic Agents (Verified Allergy, Intermediate, ITCHING WITH IVP DYE, 05/10/18) Pregabalin (Verified Adverse Reaction, Severe, PANCREATITIS, 05/10/18) Sitagliptin (Verified Adverse Reaction, Severe, PANCREATITIS, 05/10/18) Physical Exam Vital Signs Date Time Temp Pulse Resp B/P (MAP) Pulse Ox O2 Delivery O2 Flow Rate FiO2 05/11/18 00:21 84 16 124/76 95 05/10/18 22:54 36.8 89 18 121/73 95 Room Air Physical Exam HEENT: Head - normocephalic and atraumatic Pupils are equal, round, and reactive to light. Extraocular eye muscles are intact, and sclera are anicteric. Nose - moist nasal mucosa without discharge. Mouth - moist buccal mucosa. Oropharynx is nonerythematous and there is no tonsillar exudate or edema noted. Neck: Supple; no JVD, nuchal rigidity, cervical lymphadenopathy. Heart: Regular rate and rhythm. There is a normal S1 and S2 with no murmurs, clicks, or gallops appreciated. Lungs: Clear to auscultation bilaterally with no wheezes, rales, or rhonchi. Abdomen: Soft, completely nontender, nondistended, with good bowel sounds. There are no palpable pulsatile masses or hepatosplenomegaly. There is no guarding, rigidity, or rebound noted. Back: Pain to palpation over the bilateral PSIS. Extremities: No evidence of cyanosis, clubbing, or edema. There are easily palpable peripheral pulses. Skin: warm and dry with good turgor and no rashes. Medical Decision & Procedures Medications Administered Medications (Trade) Dose Ordered Sig/Mateo Route Start Time Stop Time Status Last Admin Dose Admin Morphine Sulfate (MoRPHine SULFATE INJ) 8 mg NOW STAT IM 05/10/18 23:35 05/10/18 23:36 DC 05/10/18 23:43 8 MG Procedure 2335: Ordered Morphine Sulfate 8 mg IM. ED Course 2326: Past medical records reviewed. The patient was evaluated in room B3B. A complete history and physical exam was performed. 2335: Ordered Morphine Sulfate 8 mg IM. 0013: Upon reevaluation, the patient is feeling much better. I recommended close follow up with the PCP. She verbalized agreement of the treatment plan. The patient was discharged home. Medical Decision The patient is a 67 year old female who presents to the Emergency Room with complaints of worsening back pain starting 2 weeks ago. Differential diagnoses include exacerbation of chronic pain, lumbar radiculopathy, sciatica. This is a 67-year-old female patient with history of chronic low back pain who presents to the emergency department complaining of an exacerbation. The patient has been taking tramadol and clonazepam for her symptoms without relief. The patient explains that she typically has to come here a couple times a year for acute exacerbations. I did review her records. She was given a milligrams of IM morphine with significant relief of her symptoms. I suggested that she avoid any excessive strenuous activity or excessive bending at the hips over the next couple of days. We did talk about her dosage of tramadol and I suggested she review that again with her PCP. Medication Reconcilliation Current Medication List: was personally reviewed by me Blood Pressure Screening Patient's blood pressure: Normal blood pressure Blood pressure disposition: Did not require urgent referral Impression Primary Impression: Low back pain Scribe Attestation The scribe's documentation has been prepared under my direction and personally reviewed by me in its entirety. I confirm that the note above accurately reflects all work, treatment, procedures, and medical decision making performed by me. Departure Information Dispostion Home / Self-Care Referrals Moira Killian M.D. (PCP) Forms HOME CARE DOCUMENTATION FORM, IMPORTANT VISIT INFORMATION Patient Instructions My [facility] Additional Instructions Rest No heavy lifting or excessive bending for the next 3-5 days Follow up with PCP if increased pain persists Problem Qualifiers Primary Impression: Low back pain Chronicity: chronic Back pain laterality: bilateral Sciatica presence: with sciatica Sciatica laterality: bilateral sciatica Qualified Codes: M54.42 - Lumbago with sciatica, left side; M54.41 - Lumbago with sciatica, right side; G89.29 - Other chronic pain
[2018-05-11 00:21] VITALS: BP 124/76; PULSE 84; O2SAT 95
== END 2018-05-11 00:19 | disposition home or self-care (01) ==
LOC: C.EDB 22:53
DX: M54.42 Lumbago with sciatica, left side (principal); M54.41 Lumbago with sciatica, right side; G89.29 Other chronic pain; I10 Essential (primary) hypertension; K25.9 Gastric ulcer, unspecified as acute or chronic, without hemorrhage or perforation; E78.5 Hyperlipidemia, unspecified; I25.10 Atherosclerotic heart disease of native coronary artery without angina pectoris; E11.9 Type 2 diabetes mellitus without complications; Z79.4 Long term (current) use of insulin; Z79.82 Long term (current) use of aspirin; Z79.899 Other long term (current) drug therapy; Z87.891 Personal history of nicotine dependence; Z88.8 Allergy status to other drugs, medicaments and biological substances

== ENCOUNTER 2019-06-14 08:32 | Inpatient (IN) ==
--- NOTE | 2019-06-01 16:07 | PAT Medication Instructions ---
Medication Instructions Date of Service June 01, 2019 Home Medications amlodipine 5 mg PO QAM aspirin [Aspir-81] 81 mg PO QAM cholecalciferol (vitamin D3) [Vitamin D3] 1,000 units PO QAM clonazepam 1 mg PO HS PRN diclofenac sodium [Voltaren] 1 dose TOPICAL QID PRN famotidine 20 mg PO QPM furosemide 20 mg PO DIRECTED furosemide 20 mg PO QAM lisinopril 40 mg PO QAM metoprolol succinate 100 mg PO QPM nitroglycerin 0.4 mg SUBLINGUAL UD PRN omeprazole 40 mg PO QAM prasugrel 10 mg PO QAM tramadol 200 mg PO QPM atorvastatin 40 mg tablet 40 mg PO QPM duloxetine 60 mg capsule,delayed release 60 mg PO QAM acetaminophen 650 mg PO Q6H PRN insulin NPH isoph U-100 human [Novolin N NPH U-100 Insulin] 35 unit SUBCUT QAM insulin NPH isoph U-100 human [Novolin N NPH U-100 Insulin] 40 unit SUBCUT QPM gabapentin 100 mg PO BID insulin aspart U-100 [Novolog U-100 Insulin aspart] 1 sliding scale dose SUBCUT USEASDIRECTD Continue as directed nitroglycerin 0.4 mg SUBLINGUAL UD PRN (if needed) ASK your prescriber and surgeon aspirin [Aspir-81] 81 mg PO QAM prasugrel 10 mg PO QAM STOP taking 24 hours before surgery diclofenac sodium [Voltaren] 1 dose TOPICAL QID PRN DO NOT take the morning of surgery cholecalciferol (vitamin D3) [Vitamin D3] 1,000 units PO QAM furosemide 20 mg PO DIRECTED furosemide 20 mg PO QAM lisinopril 40 mg PO QAM insulin aspart U-100 [Novolog U-100 Insulin aspart] 1 sliding scale dose SUBCUT USEASDIRECTD Take morning of surgery With a small sip of water, OTHERWISE NOTHING TO EAT OR DRINK AFTER MIDNIGHT: amlodipine 5 mg PO QAM nitroglycerin 0.4 mg SUBLINGUAL UD PRN (if needed) omeprazole 40 mg PO QAM duloxetine 60 mg capsule,delayed release 60 mg PO QAM acetaminophen 650 mg PO Q6H PRN (okay to take up to 4 hours prior to surgery if needed) gabapentin 100 mg PO BID Take evening before surgery clonazepam 1 mg PO HS PRN (if needed) famotidine 20 mg PO QPM metoprolol succinate 100 mg PO QPM tramadol 200 mg PO QPM atorvastatin 40 mg tablet 40 mg PO QPM acetaminophen 650 mg PO Q6H PRN (if needed) insulin NPH isoph U-100 human [Novolin N NPH U-100 Insulin] 40 unit SUBCUT QPM gabapentin 100 mg PO BID insulin aspart U-100 [Novolog U-100 Insulin aspart] 1 sliding scale dose SUBCUT USEASDIRECTD Insulin Dependent Diabetic Patients * Test your blood sugar the morning of surgery * If Blood Sugar is GREATER THAN 150, take HALF of your regular dose of: insulin NPH isoph U-100 human [Novolin N NPH U-100 Insulin] take 17 units * If Blood Sugar is LESS THAN 150, DO NOT TAKE ANY: insulin NPH isoph U-100 human [Novolin N NPH U-100 Insulin] Other Notes If you have any questions please call us at [phone] or [phone] or [phone] or [phone]
--- NOTE | 2019-06-04 09:08 | Anesthesiology Consultation ---
Date of Service June 04, 2019 Assessment & Plan (1) Encounter for pre-operative examination: - Check BSG AM DOS - Prasugrel (Effient)/ASA instructions per surgeon/cardio* - Cardio: 05/25/19: "Dobutamine stress echocardiogram ordered for next week to reassess valve structures and ischemic heart disease. Discussed increased risk with patient has we will unfortunately need to hold anti-platelet therapy for any spinal surgery." Stress test reviewed and per updated note from cardio: 05/30: "Stress test revealed no stress-induced ischemia (blockage), good.. Surgical risks as previously discussed." - Hx glidescope intubation: 08/24/16: Left TKA: Glidescope #3, ETT 7.0 + PNB at [facility] Chart Review Chart Review: Acceptable Risk for Surgery and Patient seen in Pre Admission Testing Teaching & Discussion Pre-Anesthesia Teaching/Discussion Notes: Instructed NPO after midnight before surgery,except medications with 15 cc of water. Medication instructions provided according to the PAT guidelines. History Surgery Operation Date: 06/14/19 08:15 Proposed Procedures p L4-L5 Posterior Lumbar Interbody Fusion - Brian Altamirano DO Height/Weight Height: 5 ft 5 in Weight: 88.8 kg Allergies Allergy/AdvReac Type Severity Reaction Status Date / Time niacin Allergy Severe HOT/BURNING Verified 06/04/19 10:27 FEELING Iodinated Contrast- Oral and Allergy Intermediate ITCHING Verified 05/30/19 08:03 IV Dye WITH IVP DYE sitagliptin AdvReac Severe PANCREATITI Verified 05/30/19 08:03 S gabapentin AdvReac Intermediate FELT Verified 06/04/19 10:27 "LOOPY, FOGGY" Medications Home Medications Medication Instructions Recorded Confirmed Last Taken amlodipine 5 mg PO QAM 08/22/18 05/30/19 09/03/18 aspirin [Aspir-81] 81 mg PO QAM 08/22/18 05/30/19 09/03/18 cholecalciferol (vitamin D3) 1,000 units PO QAM 08/22/18 05/30/19 09/03/18 [Vitamin D3] clonazepam 1 mg PO HS PRN 08/22/18 05/30/19 08/21/18 diclofenac sodium [Voltaren] 1 dose TOPICAL QID PRN 08/22/18 05/30/19 Unknown famotidine 20 mg PO QPM 08/22/18 05/30/19 09/03/18 furosemide 20 mg PO DIRECTED 08/22/18 05/30/19 09/01/18 furosemide 20 mg PO QAM 08/22/18 05/30/19 09/03/18 lisinopril 40 mg PO QAM 08/22/18 05/30/19 09/03/18 metoprolol succinate 100 mg PO QPM 08/22/18 05/30/19 09/03/18 nitroglycerin 0.4 mg SUBLINGUAL UD PRN 08/22/18 05/30/19 Unknown omeprazole 40 mg PO QAM 08/22/18 05/30/19 09/03/18 prasugrel 10 mg PO QAM 08/22/18 05/30/19 09/03/18 tramadol 200 mg PO QPM 08/22/18 05/30/19 09/03/18 atorvastatin 40 mg tablet 40 mg PO QPM 11/01/18 05/30/19 Unknown duloxetine 60 mg capsule,delayed 60 mg PO QAM 11/01/18 05/30/19 Unknown release acetaminophen 650 mg PO Q6H PRN 04/05/19 05/30/19 Unknown insulin NPH isoph U-100 human 35 unit SUBCUT QAM 04/05/19 05/30/19 Unknown [Novolin N NPH U-100 Insulin] insulin NPH isoph U-100 human 40 unit SUBCUT QPM 04/05/19 05/30/19 Unknown [Novolin N NPH U-100 Insulin] gabapentin 100 mg PO BID 05/30/19 05/30/19 Unknown insulin aspart U-100 [Novolog 1 sliding scale dose SUBCUT 05/30/19 05/30/19 Unknown U-100 Insulin aspart] USEASDIRECTD Past Medical History Medical History History of difficult intubation Hx glidescope intubation: 08/24/16: Left TKA: Glidescope #3, ETT 7.0 + PNB at [facility] Diffuse myofascial pain syndrome CAD (coronary artery disease) (07/19/14) Total of cardiac stents x 5 (most recent 2014) Diabetes IDDM Low back pain b/l LE radiculopathy Osteoarthritis of left knee Anemia Chronic deep vein thrombosis (DVT) Per records dating back to 2015; patient denies Aortic stenosis Moderate aortic stenosis present (MG 18.6, VERONIQUE 0.88) per 05/29/19 DSE; possible bicuspid AV per 12/2018* Carotid artery stenosis Chronic kidney disease Fibromyalgia GERD (gastroesophageal reflux disease) controlled Hiatal hernia Myocardial Infarction X3- 2006/2010/2014 Exercise / Class Metabolic Activity II 4-5 Yardwork/Stairs/Walk up hill Past Family History Family History Other No significant family history Past Surgical History Surgical History History of total knee arthroplasty RIGHT History of appendectomy History of cardiac cath X3 (2006, 2010, 2014)- TOTAL 5 CARDIAC STENTS Past Anesthesia History Difficult Airway (Hx glidescope intubation: 08/24/16: Left TKA: Glidescope #3, ETT 7.0 + PNB at [facility]) and No Family Hx of Anesthesia Complications History of PONV No Hx of PONV and No Hx of Motion Sickness Social History Smoking Status: Former smoker Do You Dip or Chew Tobacco: No Smoking End Date: QUIT 4-5 YEARS AGO Hx Alcohol Use: No Hx Substance Use: No Review of Systems Reflux controlled. Patient denies chest pain, shortness of breath, dyspnea on exertion, cough, wheezing, palpitations. Physical Exam Vital Signs VITALS BP 118/70 P 57 TEMP 98.2 SP02 97%RA RESP 18 PHYSICAL Full neck and c-spine range of motion. Full TMJ range of motion. TMD 2.5 finger breaths (small chin) Mallampati Score 2 Dentition: missing molars Lungs: clear throughout to auscultation Cardiac: regular rate and rhythm, II/ systolic murmur Spine: normal Carotid arteries: faint carotid radiation from murmur vs. bruit Extremities: no edema Testing Laboratory Results 06/04/19 09:26 06/04/19 09: PT 10.7 Seconds (9.0-12.0) 06/04/19 09: INR 1.0 (0.9-1.1) 06/04/19 09:26 APTT 25.1 Seconds (21.0-31.0) 06/04/19 09:26 Hemoglobin A1c 8.4 % (4.5-5.6) H 06/04/19 09:26 Blood Type A Positive 06/04/19 09:26 Antibody Screen NEGATIVE 06/04/19 09:26 *Surgeon made aware of elevated hgba1c* Electrocardiogram Date: 05/25/19 NSR at 69bpm. Abnormal QRS angle, consider primary TWA. No significant change compared to 11/2018 per cardio. *Patient had subsequent stress test 05/29/2019* Chest X-Ray Date: 04/05/19 The heart is enlarged. The pulmonary vasculature is non-congested. There are foci of scarring/atelectasis seen bilaterally. No airspace consolidation or large pleural effusion is identified. No pneumothorax is seen. The skeletal structures are osteopenic. The bony thorax is grossly intact. Cardiomegaly with no acute cardiopulmonary abnormality. Echocardiogram Date: 12/28/18 LVEF 60-64%. Base infeior wall is thinned and scarring and is severe HK to akinetic. Base posterior wall is mildly hypokinetic. Possible bicuspid AV. Moderate AV calcification. Moderate aortic stenosis (MG 20.8, VERONIQUE 1.1). Mild AR/MR. Grade I DD. No significant change compalred to 07/27/17 study per report. Stress Test Date: 05/29/19 Type: DSE Stress ECHO negative for inducible ischemia. Basal inferior and posterior george are HK/akinetic at rest, unchanged with stress. Otherwise, normal wall motion at target HR. EF 55-60%. Mild cLVH. Grade I DD. Moderate AV calcification. Moderate aortic stenosis present (MG 18.6, VERONIQUE 0.88)*. Mild AR. Mild mitral annular calcification. Mild MR. 111% MPHR. Cardiac Catheterization Date: 04/12/15 Dominant: Right Left Main (% Stenosis): Distal (30) LAD (% Stenosis): Proximal (20), Mid (20), Distal (20) Circumflex (% Stenosis): Proximal (10) OM1 (% Stenosis): Mid (50) RCA (% Stenosis): Proximal (100) Resolute 3x38mm LENA proximal through mid RCA Other Testing Carotid artery duplex: 06/20/14: The right vertebral artery demonstrates antegrade flow. The left vertebral artery demonstrates antegrade flow. ADELAIDA <50% stenosis ICA. LICA <50% stenosis ICA.
[2019-06-04 11:05] LABS: Estimated Average Glucose 194 mg/dl; Hemoglobin A1C 8.4 % (4.5-5.6)
[2019-06-04 11:08] LABS: Partial Thromboplastin Ratio 0.9; Partial Thromboplastin Time 25.1 Seconds (21.0-31.0); Prothrombin Time 10.7 Seconds (9.0-12.0)
[2019-06-04 11:12] LABS: Calcium 8.7 mg/dl (8.5-10.1); Creatinine Clr Calc Pharmacy 45.2 ml/min; Est GFR (African American) 47.8; Est GFR (Non-African American) 41.3; Hematocrit (blood only) 39.5 % (37-47); Hemoglobin 12.9 g/dL (12.0-16.0); Mean Corpuscular Hemoglobin 27.4 pg (25-34); Mean Corpuscular Hgb Conc 32.7 g/dL (32-36); Mean Corpuscular Volume 83.9 fL (80-100); Mean Platelet Volume 9.4 fL (7.4-10.4); Platelet Count 377 K/uL (130-400); Potassium 4.8 mmol/L (3.5-5.1); RDW Coefficient of Variation 15.5 % (11.5-14.5); RDW Standard Deviation 47.7 fL (36.4-46.3); Red Blood Count 4.71 M/uL (4.2-5.4); White Blood Count 8.96 K/uL (4.8-10.8)
[2019-06-04 11:15] LABS: Basophils # (auto) 0.05 K/uL (0-0.2); Basophils % (auto) 0.6 %; Eosinophils # (auto) 0.24 K/uL (0-0.5); Eosinophils % (auto) 2.7 %; Immature Granulocytes # (auto) 0.04 K/uL (0.00-0.02); Immature Granulocytes % (auto) 0.4 %; Lymphocytes # (auto) 2.73 K/uL (1.2-3.4); Lymphocytes % (auto) 30.5 %; Monocytes # (auto) 0.62 K/uL (0.11-0.59); Monocytes % (auto) 6.9 %; Neutrophils # (auto) 5.28 K/uL (1.4-6.5); Neutrophils % (auto) 58.9 %
--- NOTE | 2019-06-13 13:23 | History and Physical Report ---
DATE OF ADMISSION: 06/14/2019 MEDICAL HISTORY: Positive for heart disease, diabetes, high cholesterol, hypertension. CHIEF COMPLAINT: Leg pain, claudication, neurogenic claudication, inability to ambulate, weakness and pain. HISTORY OF PRESENT ILLNESS: Longstanding history per impressive MRI scan and x-rays demonstrate a significant spondylolisthesis of the spine. She has failed conservative measures. PAST MEDICAL HISTORY: Listed. PAST SURGICAL HISTORY: Three heart stents, knee replacement. ALLERGIES: CONTRAST DYE. FAMILY HISTORY: Heart disease. SOCIAL HISTORY: She is . No alcohol, tobacco. REVIEW OF SYSTEMS: Twelve system review negative fevers, sweats, chills. Ear, nose and throat negative. Denies chest pain, palpitations. Denies nausea, vomiting, urgency, frequency. She has musculoskeletal back pain, neurogenic claudication. OBJECTIVE: GENERAL: She is 5 feet 5 inches, 195, moderate distress. She has pain. CARDIAC: Normal S1, S2, no S3. LUNGS: Clear to auscultation. VITAL SIGNS: Blood pressure 130/80, pulse 80. HEART: Regular rate and rhythm. LUNGS: Clear. ABDOMEN: Soft, nontender. NEUROLOGIC: She is intact. Slight paresthesias. No gross deficit. Cranial and cervical nerve roots intact. Images demonstrate severe spinal stenosis and spondylolisthesis. PLAN: Includes a posterior lumbar interbody fusion procedure L4-L5 lumbar spine on 06/14/2019.
[~2019-06-14 08:32] MED LIST changes: +ACETAMINOPHEN 1000 MG/100 ML IV IV SCH; +ACETAMINOPHEN 500 MG TAB PO SCH; -AMLO5TAB3 PO; -ASPI81TA28 PO; +CEFAZOLIN 2000MG 2,000 MG/15 ML SYR IV SCH; -CHOL1000 PO; -CITA40TA4 PO; -FERR325T18 PO; -FURO-85 PO; -KLN1X PO; -LISI40TA PO; -LPT/40 PO; +LR 15ML/HR IV SCH; -LSX20 PO; -LVMI SC; -NITR0.4S UT; -NVLG SQ; -OMEP20CA9 PO; -PRAS1TAB6 PO; +SODIUM CHLORIDE 0.9% 1,000 ML IV SCH; -TPRSR/100 PO; -TRAM-10 PO
[2019-06-14] MEDS ORDERED: ONDANSETRON INJ 2 MG/ML 2 ML VIAL ONE (10:01)
[2019-06-14] MEDS ORDERED: PROPOFOL IV EMULSION 10 MG/ML 20 ML VIAL IV ONE (10:01)
[2019-06-14] MEDS ORDERED: LIDOCAINE HCL 2% 2 ML VIAL/AMP(20MG/ML) INFIL ONE (10:01)
[2019-06-14] MEDS ORDERED: fentaNYL citrate 100 MCG/2 ML VIAL ONE ×2 (10:01→12:01)
[2019-06-14] MEDS ORDERED: ROCURONIUM BROMIDE 10 MG/ML 5 ML VIAL ONE (10:01)
[2019-06-14] MEDS ORDERED: MIDAZOLAM HCL 1 MG/ML 2ML VIAL ONE (10:01)
[2019-06-14] MEDS ORDERED: VANCOMYCIN HCL 1000MG/20ML VIAL ONE (11:14)
[2019-06-14] MEDS ORDERED: BACITRACIN INJ 50,000 UNIT VIAL ONE (11:15)
[2019-06-14] MEDS ORDERED: THROMBIN FOR SOLN 20000 UNIT KIT ONE ×2 (11:15→11:29)
[2019-06-14] MEDS ORDERED: GELATIN SPONGE SZ 100 ONE (11:15)
[2019-06-14] MEDS ORDERED: BUPIVACAINE/EPINEPHRINE 0.5% MPF 1:200,000 30 ML VIAL ONE (11:15)
--- NOTE | 2019-06-14 11:20 | History & Physical Bridge Note ---
Date of Service June 14, 2019 History & Physical Bridge Note I have examined the patient, reviewed the History & Physical and in the interval since the performance of the History & Physical I have noted the following changes of clinical significance: no changes noted
[2019-06-14] MEDS ORDERED: ePHEDrine sulfate 50 MG/ML SYR ONE (12:20)
[2019-06-14] MEDS ORDERED: LABETALOL HCL IV 5 MG/ML 20ML IV PRN (13:12)
[2019-06-14] MEDS ORDERED: ePHEDrine sulfate 50 MG/ML AMP IV PRN (13:12)
[2019-06-14] MEDS ORDERED: ATROPINE SULFATE 0.1 MG/ML 10ML SYR IV PRN (13:12)
[2019-06-14] MEDS ORDERED: ONDANSETRON INJ 2 MG/ML 2 ML VIAL IV PRN ×2 (13:12→15:36)
[2019-06-14] MEDS ORDERED: PROMETHAZINE HCL 12.5 MG in SODIUM CHLORIDE 0.9% 50 ML IV PRN ×2 (13:12→15:36)
[2019-06-14] MEDS ORDERED: FLUMAZENIL 0.1 MG/1 ML 10 ML VIAL IV PRN (13:12)
[2019-06-14] MEDS ORDERED: NALOXONE HCL 0.4 MG/1 ML VIAL/CARP IV PRN ×2 (13:12→15:36)
--- NOTE | 2019-06-14 13:18 | Fluoroscopy Report ---
INTRAOPERATIVE RADIOGRAPH CLINICAL HISTORY: L4-L5 spinal fusion. Fluoroscopy time: 5 seconds. FINDINGS: A single spot fluoroscopic view of the lower lumbar spine is presented. There has been lami nectomy and posterior fusion at L4-L5. Interpedicular screws are present at both levels. The orthoped ic hardware appears intact. Grade 1 anterolisthesis is noted at L4-L5. IMPRESSION: Intraoperative image from L4 -L5 spinal fusion. Electronically signed by: Tomás Askew M.D. 06/14/2019 1:16 PM
--- NOTE | 2019-06-14 13:29 | Post Operative Brief Note ---
PG Immediate Post Op with CF Date of Surgery June 14, 2019 Pre & Post Diagnosis Operation Date: 06/14/19 10:15 Pre-Op Diagnosis: LUMBAR SPINAL STENOSIS L4-5 Post-Op Diagnosis: LUMBAR SPINAL STENOSIS L4-5 Procedure Operation Date: 06/14/19 10:15 Actual Procedures p L4-L5 Posterior Lumbar Interbody Fusion(Not Applicable) - Brian Altamirano DO Surgeon Brian Altamirano DO Finisher Screwdown toni Estimated Blood Loss 50 Findings Consistent with Post-Op Diagnosis Specimens Specimen Description: no specimen per surgeon Drains Cunningham Catheter Anesthesia Type General Overlapping Procedure I was immediately available: during the entire case.
[2019-06-14] MEDS: HYDROmorphone INJ 1 MG/ML SYRINGE IV PRN ×8 (13:56→14:31)
--- NOTE | 2019-06-14 14:14 | Operative Report ---
DATE OF OPERATION: 06/14/2019 PREOPERATIVE DIAGNOSIS: Spondylolisthesis, lumbar spine. POSTOPERATIVE DIAGNOSIS: Spondylolisthesis, lumbar spine. PROCEDURE: 1. Posterior lumbar decompression, laminectomy, foraminotomy, partial facetectomy and we decompressed L3-4 and L4-L5, so 2 level laminectomy. 2. Pedicle screw instrumentation L4-L5 single level pedicle screw instrumentation. 3. Posterolateral fusion, L4-L5. DESCRIPTION OF PROCEDURE: Prior to patient being brought to the operating room, she was identified in the preop holding area, marked and a bridge note provided. She was brought back safely. General intubated anesthetic antibiotics provided, Cunningham catheter administered. The patient placed safely on the Mauricio table. Scrubbed, prepped and draped sterile. We made a skin incision, fascial incision down on the L4-L5 level. We decompressed the neural elements completely and a fairly rigorous case. The nerve roots were free, which would be the L5, L4 and L3 nerve roots bilaterally, good foraminotomies provided. The patient had a grade 1, almost grade 2 spondylolisthesis of the spine. I instrumented the spine. I did not feel it was safe to do a posterior lumbar interbody fusion. I safely got the pedicle screws into 4, safely got the pedicle screws into 5. The positioning of the screws were near anatomic. We irrigated thoroughly. We then bone grafted out the transverse processes, completing a posterolateral fusion. I used the patient's autograft. There was no allograft or bone substitute. We then closed over a drain and over vancomycin powder, staple gun on the skin. Sterile dressings applied. The patient extubated to PACU in stable. No complications. IMPLANTS USED: [employer] Card. ESTIMATED BLOOD LOSS: 50 mL. SURGEON: Brian Altamirano DO MANAGER SITE: Beni Norwood PA-C. COUNTS: Sponge and needle count correct. Bone graft used was morcellized autograft. I attest to the content of the Intraoperative Record and any orders documented therein. Any exception s are noted below.
--- NOTE | 2019-06-14 15:06 | Anesthesiology Progress Note ---
Date of Service June 14, 2019 Anesthesia Post Procedure Vital Signs Vital Signs: Temp Pulse Pulse Resp BP Pulse Ox 06/14/19 14:55 63 13 139/54 L 100 06/14/19 14:40 72 16 147/56 H 99 06/14/19 14:30 36.7 C 72 16 138/75 100 06/14/19 14:20 68 16 154/60 H 100 06/14/19 14:10 72 18 151/63 H 100 06/14/19 14:00 81 18 158/64 H 100 06/14/19 13:50 75 16 155/78 H 100 06/14/19 13:42 36.1 C L 92 H 14 167/74 H 96 06/14/19 09:38 36.7 C 66 20 150/75 H 96 Pain Intensity Back: Pain Intensity: 5 Transfer of Care Handoff Completed per policy Notes Mental Status: alert / awake / arousable Patient Amnestic to Procedure: Yes Nausea / Vomiting: adequately controlled Pain: adequately controlled Airway Patency, RR, SpO2: stable & adequate BP & HR: stable & adequate Hydration State: stable & adequate Anesthetic Complications: no major complications apparent
[2019-06-14] MEDS ORDERED: DO NOT ADMINISTER FLU VACCINE PRN (15:36)
[2019-06-14] MEDS ORDERED: SOD PHOSPHATE/SOD BIPHOSPHATE ENEMA 132 ML BTL PR PRN (15:36)
[2019-06-14] MEDS ORDERED: ACETAMINOPHEN 1,000 MG/100 ML VIAL IV PRN (15:36)
[2019-06-14] MEDS ORDERED: NITROGLYCERIN SL 0.4 MG/TAB TAB SL PRN (15:36)
[2019-06-14] MEDS ORDERED: SODIUM CHLORIDE 0.9% 1000ML 1,000 ML IV SCH (15:36)
[2019-06-14] MEDS ORDERED: DO NOT ADMINISTER PNEUMOCOCCAL VACCINE PRN (15:36)
[2019-06-14] MEDS ORDERED: clonazePAM 1 MG TAB PO PRN (15:36)
[2019-06-14] MEDS ORDERED: MAGNESIUM HYDROXIDE SUSP 30 ML UDC PO PRN (15:36)
[2019-06-14] MEDS ORDERED: BISACODYL 10 MG SUPP PR PRN (15:36)
[2019-06-14] MEDS ORDERED: PHARMACY GLYCEMIC MGMT CONSULT PRN (15:41)
[2019-06-14] MEDS ORDERED: GLUCOSE 10 TABS/TUBE PO PRN (16:15)
[2019-06-14] MEDS ORDERED: CARBOHYDRATES FOR HYPOGLYCEMIA PO PRN (16:15)
[2019-06-14] MEDS ORDERED: GLUCAGON FOR INJ 1 MG VIAL SQ PRN (16:15)
[2019-06-14] MEDS ORDERED: DEXTROSE 50% 50 ML SYRINGE IV PRN (16:15)
[2019-06-14] MEDS ORDERED: GLUCOSE 40% GEL 15 GM TUBE PO PRN (16:15)
[2019-06-14] MEDS: OXYCODONE HCL IR 5 MG TAB (IMMEDIATE RELEASE) PO PRN ×2 (16:34→22:41)
[2019-06-14] MEDS: INSULIN ASPART 100 UNITS/ML 3 ML PEN SC SCH ×3 (17:44→23:58)
[2019-06-14] MEDS: INSULIN HUMAN NPH SC SCH (17:46)
[2019-06-14] MEDS: CEFAZOLIN 2000MG 2,000 MG/15 ML SYR IV SCH (20:19)
[2019-06-14] MEDS: HYDROmorphone INJ 0.5 MG/0.5 ML SYR IV PRN ×2 (20:19→23:58)
[2019-06-14] MEDS: METOPROLOL SUCC 50MG EXT REL TAB PO SCH (20:39)
[2019-06-14] MEDS: ATORVASTATIN 40 MG TAB PO SCH (20:39)
[2019-06-14] MEDS: GABAPENTIN 100 MG CAP PO SCH (20:40)
[2019-06-14] MEDS: DOCUSATE SODIUM/SENNA 50/8.6MG TAB PO SCH (20:40)
[2019-06-14] MEDS: FAMOTIDINE 20 MG TAB PO SCH (20:40)
[2019-06-14] MEDS ORDERED: Nursing to Pharmacy Communication ONE (20:48)
[2019-06-15] MEDS: OXYCODONE HCL IR 5 MG TAB (IMMEDIATE RELEASE) PO PRN ×5 (04:07→23:34)
[2019-06-15] MEDS: INSULIN ASPART 100 UNITS/ML 3 ML PEN SC SCH ×5 (04:27→21:10)
[2019-06-15] MEDS: CEFAZOLIN 2000MG 2,000 MG/15 ML SYR IV SCH (04:33)
[2019-06-15] MEDS: POLYETHYLENE (MIRALAX) 17 GM PACK PO SCH ×4 (05:26→23:25)
[2019-06-15 07:10] LABS: Basophils # (auto) 0.03 K/uL (0-0.2); Basophils % (auto) 0.2 %; Eosinophils # (auto) 0.04 K/uL (0-0.5); Eosinophils % (auto) 0.3 %; Hematocrit (blood only) 36.8 % (37-47); Hemoglobin 11.7 g/dL (12.0-16.0); Immature Granulocytes # (auto) 0.05 K/uL (0.00-0.02); Immature Granulocytes % (auto) 0.4 %; Lymphocytes # (auto) 2.08 K/uL (1.2-3.4); Lymphocytes % (auto) 15.8 %; Mean Corpuscular Hemoglobin 27.5 pg (25-34); Mean Corpuscular Hgb Conc 31.8 g/dL (32-36); Mean Corpuscular Volume 86.6 fL (80-100); Mean Platelet Volume 9.2 fL (7.4-10.4); Monocytes # (auto) 1.47 K/uL (0.11-0.59); Monocytes % (auto) 11.2 %; Neutrophils # (auto) 9.46 K/uL (1.4-6.5); Neutrophils % (auto) 72.1 %; Platelet Count 299 K/uL (130-400); RDW Coefficient of Variation 15.8 % (11.5-14.5); RDW Standard Deviation 50.5 fL (36.4-46.3); Red Blood Count 4.25 M/uL (4.2-5.4); White Blood Count 13.13 K/uL (4.8-10.8)
[2019-06-15 07:17] LABS: BUN Creatinine Ratio 15.2 (10-20); Calcium 8.1 mg/dl (8.5-10.1); Creatinine Clr Calc Pharmacy 43.9 ml/min; Est GFR (African American) 46.1; Est GFR (Non-African American) 39.8; Potassium 4.3 mmol/L (3.5-5.1)
--- NOTE | 2019-06-15 08:13 | Anesthesiology Progress Note ---
Date of Service June 15, 2019 Anesthesia Post Procedure Vital Signs Vital Signs: Temp Pulse Pulse Resp BP Pulse Ox 06/15/19 07:00 37 C 85 16 119/68 93 06/15/19 03:56 37.4 C 100 H 17 120/72 92 06/14/19 23:35 36.7 C 84 18 119/68 95 06/14/19 18:40 36.4 C L 66 16 113/65 99 06/14/19 17:29 36.5 C 70 16 126/76 98 06/14/19 16:29 36.5 C 64 18 105/57 L 98 06/14/19 16:06 36.5 C 71 16 119/68 99 06/14/19 14:55 63 13 139/54 L 100 06/14/19 14:40 72 16 147/56 H 99 06/14/19 14:30 36.7 C 72 16 138/75 100 06/14/19 14:20 68 16 154/60 H 100 06/14/19 14:10 72 18 151/63 H 100 06/14/19 14:00 81 18 158/64 H 100 06/14/19 13:50 75 16 155/78 H 100 06/14/19 13:42 36.1 C L 92 H 14 167/74 H 96 06/14/19 09:38 36.7 C 66 20 150/75 H 96 Pain Intensity Back: Pain Intensity: 5 Notes Mental Status: alert / awake / arousable Patient Amnestic to Procedure: Yes Nausea / Vomiting: adequately controlled Pain: adequately controlled Airway Patency, RR, SpO2: stable & adequate BP & HR: stable & adequate Hydration State: stable & adequate Anesthetic Complications: no major complications apparent and Pt Satisfied with anesthetic care
[2019-06-15] MEDS: DULOXETINE HCL 60 MG CAP PO SCH (08:58)
[2019-06-15] MEDS: PANTOprazole 40 MG TAB PO SCH (08:59)
[2019-06-15] MEDS: GABAPENTIN 100 MG CAP PO SCH ×2 (08:59→20:39)
[2019-06-15] MEDS: PRASugrel TAB 10 MG TAB PO SCH (08:59)
[2019-06-15] MEDS ORDERED: ASPIRIN 81 MG ECTAB PO SCH ×2 (09:00→21:00)
[2019-06-15] MEDS: FUROSEMIDE 20 MG TAB PO SCH (09:01)
[2019-06-15] MEDS: AMLODIPINE BESYLATE 5 MG TAB PO SCH (09:04)
[2019-06-15] MEDS: LISINOPRIL 40 MG TAB PO SCH (09:05)
[2019-06-15] MEDS: INSULIN HUMAN NPH SC SCH ×2 (09:06→18:25)
[2019-06-15] MEDS ORDERED: Nursing to Pharmacy Communication ONE (10:35)
--- NOTE | 2019-06-15 12:00 | Pharmacy Report ---
Pharmacy Glycemic Short Note 2 - Date of Service June 15, 2019 - Glycemic Short BSG Results (Last 24 hours): 06/14/19 06/14/19 06/14/19 13:44 17:17 20:21 Glucose POC Glucose 114 H 139 H 121 H 06/14/19 06/15/19 06/15/19 23:48 04:00 06:32 Glucose 167 H POC Glucose 147 H 163 H 06/15/19 08:23 Glucose POC Glucose 177 H OUTPATIENT ANTIDIABETIC REGIMEN: * NPH 35 units with breakfast + 40 units with dinner * Novolog prn (pt reports rare use; 3-8 units for elevated BSG, 1 unit for every 25 mg/dl above 100 mg/dL) * A1c 8.4% 06/04/19 ASSESSMENT: * 68 yr old T2DM female POD #1 s/p lumbar surgery * Home regimen of ~75-80 units per day was split into a 50% basal (NPH) and 50% bolus (novolog) regimen. * Pt has demonstrated excellent glycemic control over the past 24 hours. PLAN FOR INPATIENT GLYCEMIC CONTROL: * Hold outpatient oral diabetes medications * Basal insulin * NPH SQ BID per scale: * 20 units for BSG < 140 * 30 units for BSG 140-180 * 40 units for BSG > 180 * Bolus insulin * NovoLog per scale ACHS or Q6hrs while NPO * Goal Range: Low 110 mg/dL - High 140 mg/dL * Correction Factor: 25 mg/dL/unit * Nutritional / Prandial insulin per carb ratio of 1 unit per 8 grams CHO consumed PLAN FOR DISCHARGE: * A1c of 8.4% is above goal * I suspect NPH dosing is likely covering some of her prandial needs at home. I recommend the addition of Novolog 4 units TID with meals. Dosing can be titrated by her outpatient provider.
[2019-06-15] MEDS ORDERED: FUROSEMIDE 20 MG TAB PO SCH (17:00)
[2019-06-15] MEDS: DOCUSATE SODIUM/SENNA 50/8.6MG TAB PO SCH (20:38)
[2019-06-15] MEDS: FAMOTIDINE 20 MG TAB PO SCH (20:39)
[2019-06-15] MEDS: ATORVASTATIN 40 MG TAB PO SCH (20:39)
[2019-06-15] MEDS: METOPROLOL SUCC 50MG EXT REL TAB PO SCH (20:40)
[2019-06-16] MEDS: POLYETHYLENE (MIRALAX) 17 GM PACK PO SCH (05:54)
[2019-06-16] MEDS: FUROSEMIDE 20 MG TAB PO SCH (07:53)
[2019-06-16] MEDS: DULOXETINE HCL 60 MG CAP PO SCH (07:53)
[2019-06-16] MEDS: GABAPENTIN 100 MG CAP PO SCH (07:53)
[2019-06-16] MEDS: PRASugrel TAB 10 MG TAB PO SCH (07:53)
[2019-06-16] MEDS: PANTOprazole 40 MG TAB PO SCH (07:54)
[2019-06-16] MEDS: AMLODIPINE BESYLATE 5 MG TAB PO SCH (07:55)
[2019-06-16] MEDS: LISINOPRIL 40 MG TAB PO SCH (07:55)
[2019-06-16] MEDS: INSULIN HUMAN NPH SC SCH (07:57)
[2019-06-16] MEDS: INSULIN ASPART 100 UNITS/ML 3 ML PEN SC SCH (07:59)
[2019-06-16] MEDS ORDERED: BISACODYL 5 MG TABEC PO ONE (09:29)
[2019-06-16] MEDS: OXYCODONE HCL IR 5 MG TAB (IMMEDIATE RELEASE) PO PRN (10:20)
--- NOTE | 2019-06-16 23:12 | Discharge Summary ---
SUBJECTIVE: She is alert and oriented, minimal complaints of pain, no chest pain, shortness of breath. No abdominal discomfort. Vital signs stable, alert, oriented. ASSESSMENT: Status post reconstructive spine surgery and uneventful course. She has been here 44 hours. PLAN: We will discharge her home today. Instructions, precautions, prescriptions should be for hydrocodone, which is on her chart, Dulcolax, which is a nonprescription item, she can resume all medications. Her dressing should be changed about every 72 hours.
== END 2019-06-16 12:01 | disposition home or self-care (01) | DRG 460 ==
LOC: ASU 08:32 → 3E 13:46

== ENCOUNTER 2021-05-01 08:03 | Inpatient (IN) ==
[2021-05-01] MEDS ORDERED: SODIUM CHLORIDE 0.9% 1000ML 1,000 ML IV SCH ×2 (09:00→17:13)
[2021-05-01 09:22] LABS: Basophils # (auto) 0.02 K/uL (0-0.2); Basophils % (auto) 0.1 %; Eosinophils # (auto) 0.01 K/uL (0-0.5); Eosinophils % (auto) 0.1 %; Hematocrit (blood only) 37.9 % (37-47); Immature Granulocytes # (auto) 0.05 K/uL (0.00-0.02); Immature Granulocytes % (auto) 0.3 %; Lymphocytes # (auto) 1.52 K/uL (1.2-3.4); Lymphocytes % (auto) 10.4 %; Mean Corpuscular Hemoglobin 28.3 pg (25-34); Mean Corpuscular Hgb Conc 31.7 g/dL (32-36); Mean Corpuscular Volume 89.4 fL (80-100); Mean Platelet Volume 9.2 fL (7.4-10.4); Monocytes # (auto) 1.16 K/uL (0.11-0.59); Monocytes % (auto) 7.9 %; Neutrophils # (auto) 11.88 K/uL (1.4-6.5); Neutrophils % (auto) 81.2 %; Platelet Count 364 K/uL (130-400); RDW Coefficient of Variation 15.3 % (11.5-14.5); RDW Standard Deviation 50.3 fL (36.4-46.3); Red Blood Count 4.24 M/uL (4.2-5.4); White Blood Count 14.64 K/uL (4.8-10.8)
--- NOTE | 2021-05-01 09:23 | XRay Report ---
SINGLE VIEW CHEST CLINICAL HISTORY: Generalized weakness. FINDINGS: An AP, portable, upright chest radiograph is compared to study dated 07/24/2019 and correla dori with chest CT dated 03/14/2019. The heart is enlarged. The pulmonary vasculature is noncongested. T here is elevation of the right hemidiaphragm and bibasilar atelectasis. No airspace consolidation or large pleural effusion is identified. A hiatal hernia is noted. No pneumothorax is seen. The skeletal structures are osteopenic. The bony thorax is grossly intact. IMPRESSION: 1. Cardiomegaly with no acute cardiopulmonary abnormality. 2. Hiatal hernia. ACT 112: Negative or not required by law. Electronically signed by: Tomás Askew M.D. 05/01/2021 9:21 AM
[2021-05-01 09:41] LABS: Alanine Aminotransferase 17 U/L (12-78); Albumin Level 2.8 gm/dl (3.4-5.0); Blood Urea Nitrogen 57 mg/dl (7-18); Calcium 8.5 mg/dl (8.5-10.1); Carbon Dioxide 19 mmol/L (21-32); Chloride 104 mmol/L (98-107); Est GFR (African American) 22.4 ml/min; Est GFR (Non-African American) 19.3 ml/min; Glucose 226 mg/dl (70-99); Potassium 4.2 mmol/L (3.5-5.1); Sodium 133 mmol/L (136-145)
[2021-05-01 09:52] LABS: Albumin Globulin Ratio 0.7 (0.9-2); Alkaline Phosphatase 56 U/L (45-117); Aspartate Aminotransferase 9 U/L (15-37); Bilirubin,Total 0.8 mg/dl (0.2-1); Creatine Kinase 88 U/L (26-192); Thyroid Stimulating Hormone 0.794 uIu/ml (0.300-4.500); Total Protein 6.8 gm/dl (6.4-8.2); Troponin I < 0.015 ng/ml (0-0.045)
[2021-05-01] MEDS ORDERED: SODIUM CHLORIDE 0.9% 1000ML 1,000 ML IV ONE (10:47)
[2021-05-01 11:29] LABS: Appearance Urine Clear (Clear); Bacteria Urine Automated Negative (Negative); Bilirubin Urine Negative (Negative); Blood Urine Negative (Negative); Color Urine Dark Yellow; Epithelial Cell Urine Auto >30 /lpf (0-5); Glucose Urine UA Negative (Negative); Ketones Urine Trace (Negative); Leukocyte Esterase Urine Trace (Negative); Nitrite Urine Negative (Negative); Protein Urine Negative (Negative); RBC Urine Automated 0-4 /hpf (0-4); Urobilinogen Urine Negative (Negative)
--- NOTE | 2021-05-01 12:30 | History & Physical Report ---
Date of Service May 01, 2021 Assessment & Plan (1) Weakness with dizziness: Plan: - [facility] - Stroke order set completed. 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 -Consult neurology, Dr. Hughes -Already on baby aspirin, Effient daily, statin therapy, continue -Check echo w/ hx of aortic stenosis -PT/OT consults -Speech eval, PT/OT eval's -Fall precautions as hx of such - no falls prior to this admission, has guard rail at home on bed so does not fall out. -Allow diet once passes speech -Check CT head, cervical spine without contrast due to SAM and allergic to iodinated contrast. (2) SAM (acute kidney injury): Plan: -Received 2L NSS in the ER, continue NSS 125 mL/h x 1 bag -Holding PER DIEM INTERPRETER lisinopril, as well as Lasix -Avoid nephrotoxins and renally reduce medications -Trend with a.m. labs (3) CAD (coronary artery disease): Plan: -History of such, continue amlodipine, metoprolol, baby aspirin, Effient, rosuvastatin -History of 5 stents- proximal circumflex, mid and distal right coronary, proximal circumflex marginal. She had restenosis of her stents x2 in 2010 and 2014. - Hx of TX x 3 in 2006, 2010, and 2014 - Check lipid panel with am labs (4) Bicuspid aortic valve: Plan: -History of such -Checking 2D echo (5) Aortic stenosis: Plan: -Loud holosystolic murmur not heard on exam, noted, follows with cardiology as an outpatient, Dr. Hayden -2D echo as above (6) Carotid artery stenosis: Plan: -History of such, continue simvastatin -Will check carotid ultrasound bilaterally due to dizziness and cva like symptoms above. (7) PVD (peripheral vascular disease): Plan: - Hx of such (8) Diabetes: Plan: - Glycemic pharmacy consulted - ISS with accucheckrakel achs - A1C last 8.4 in 2019, will recheck with am labs. (9) Polyarthritis of multiple sites: Plan: -Wrist pain, will check xray bilaterally -Took prednisone 20 mg last night due to her pain being so severe, she has previously used steroid short course to help with alleviation of pain -May continue tramadol, Voltaren gel, hold oxycodone with altered mental status. -Consider pain management referral -Patient with complaint of left-sided neck pain, follow CT cervical spine without contrast DVT ppx: - teds, scds, baby aspirin, Effient CODE: Full code Dispo: From home, likely to remain in the hospital x 1-2 days History of Present Illness Primary Care Provider: Elif Falcon MD This is a 70 yo F with PMHx of systolic CHF, bicuspid aortic valve, CAD, HTN, HLD, history of TX, DM type II, fibromyalgia, CKD stage III, inflammatory polyarthritis, osteoarthritis who presents with acute onset of confusion, dizziness, difficulty with walking. She is present here with her son at bedside. Patient notes that she awoke this morning around 6:30 AM, called for her son right before 7:00 AM as she had difficulty attempting to get up out of bed, felt dizzy, was confused and was unable to grasp things up with either hand (although this has been difficult previously due to her osteoarthritis), and expressed difficulty getting out words that she wanted to say. She denies any focal weakness in her legs or arms. Denies any history of previous stroke. She was able to check her glucose this morning which resulted in glucose equal to 245, and proceeded to take her long-acting insulin of 45 units. Patient has not yet eaten today. She feels that her confusion has improved at this point, however her son at bedside reports that she is unable to recall specific order of events this morning. Another main complaint that the patient has is that her wrist have been bothering her severely for the last 3 weeks. She had seen outpatient provider for such and was given a prescription for prednisone for 3 days then instructed to stop them. He had some leftover tablets at home from a previous prescription and took total of 20 mg last evening due to significant pain, which currently is radiating up her arm and into the left side of her neck. She uses tramadol routinely as well as oxycodone intermittently for pain relief. Her son at bedside requests that she has a long-acting morphine or oxycodone given to her because the IR isn't working. Patient took her medications last night. She has been taking Lasix 20 mg daily as directed, but reports that she has not required the 2-3 tabs per week on an as-needed basis. He also recently stopped taking her iron tablet. At baseline the patient ambulates without any assistive diet devices, only a walking cane whenever she goes on a hike around her 10 acre yard. Allergies Allergy/AdvReac Type Severity Reaction Status Date / Time niacin Allergy Severe HOT/BURNING Verified 04/16/21 11:55 FEELING Iodinated Contrast Media Allergy Intermediate ITCHING Verified 04/16/21 11:55 WITH IVP DYE sitagliptin AdvReac Severe PANCREATITI Verified 04/16/21 11:55 S Home Medications Medication Instructions Recorded Confirmed Type amlodipine 5 mg tablet 5 mg PO QAM 08/22/18 05/01/21 History diclofenac sodium 1 % topical gel 1 dose TOPICAL QID PRN 08/22/18 05/01/21 History (Voltaren) famotidine 20 mg tablet 20 mg PO QPM 08/22/18 05/01/21 History furosemide 20 mg tablet 20 mg PO 3XWK 08/22/18 05/01/21 History furosemide 20 mg tablet 20 mg PO QAM 08/22/18 05/01/21 History lisinopril 40 mg tablet 40 mg PO QAM 08/22/18 05/01/21 History metoprolol succinate 100 mg 100 mg PO QPM 08/22/18 05/01/21 History tablet,extended release 24 hr nitroglycerin 0.4 mg sublingual 0.4 mg SUBLINGUAL UD PRN 08/22/18 05/01/21 History tablet omeprazole 40 mg capsule,delayed 40 mg PO DAILYBB 08/22/18 05/01/21 History release prasugrel 10 mg tablet 10 mg PO QAM 08/22/18 05/01/21 History duloxetine 60 mg capsule,delayed 60 mg PO QAM 11/01/18 05/01/21 History release (Cymbalta) insulin NPH isoph U-100 human 100 45 unit SUBCUT BIDM 04/05/19 05/01/21 History unit/mL subcutaneous suspension (Novolin N NPH U-100 Insulin isophane) insulin aspart U-100 100 unit/mL 1 sliding scale dose SUBCUT 05/30/19 05/01/21 History subcutaneous solution (Novolog USEASDIRECTD PRN U-100 Insulin aspart) gabapentin 300 mg capsule 300 mg PO QAM 11/22/19 05/01/21 History (Neurontin) aspirin 81 mg tablet,delayed 81 mg PO QAM 09/27/20 05/01/21 History release tramadol 100 mg tablet,extended 100 mg PO BID 09/27/20 05/01/21 History release 24 hr tramadol 50 mg tablet 50 mg PO Q6 PRN 09/27/20 05/01/21 History oxycodone 5 mg tablet 5 mg PO Q4H PRN #12 tab 04/07/21 05/01/21 Rx rosuvastatin 40 mg tablet 40 mg PO PM 04/16/21 05/01/21 History estradiol VAGINAL UD 05/01/21 History ferrous gluconate 324 mg (38 mg 324 mg PO DAILY 05/01/21 05/01/21 History iron) tablet gabapentin 300 mg capsule 600 mg PO QPM 05/01/21 05/01/21 History Past Med/Surg History Medical History Anemia Aortic stenosis Moderate aortic stenosis present (MG 18.6, VERONIQUE 0.88) per 05/29/19 DSE; possible bicuspid AV per 12/2018* CAD (coronary artery disease) (07/19/14) Total of cardiac stents x 5 (most recent 2014) Carotid artery stenosis Chronic deep vein thrombosis (DVT) Per records dating back to 2015; patient denies Chronic kidney disease Diabetes IDDM Diffuse myofascial pain syndrome Fibromyalgia GERD (gastroesophageal reflux disease) controlled Hiatal hernia History of difficult intubation Hx glidescope intubation: 08/24/16: Left TKA: Glidescope #3, ETT 7.0 + PNB at [facility] Hx of sciatica Low back pain b/l LE radiculopathy Myocardial Infarction X3- Osteoarthritis of left knee Surgical History History of appendectomy History of cardiac cath X3 (2006, 2010, 2014)- TOTAL 5 CARDIAC STENTS History of lumbar fusion History of total knee arthroplasty RIGHT Family History Other No significant family history Social History Smoking Status: Former smoker Tobacco Type: Cigarettes Second Hand Exposure: No; Hx Alcohol Use: No Hx Substance Use: No Preferred Language: Turkmen Communication Ability: Effective Visual Impairment: No Limitations Hearing Ability: Normal 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 Hx of BM every 3-4 days. Musculoskeletal: + Chronic bilateral wrist joint pain, left elbow, left neck pain, no calf pain, no swelling Neurologic: Currently no weakness, numbness/tingling, or balance problems, see HPI. Psychiatric: No anxiety or depression Skin: No rash or itch Physical Exam Physical Exam: General: awake, alert, no apparent distress Head: Normocephalic, atraumatic ENT: PERRL, EOMI, no pharyngeal exudate, mucous membranes moist Chest: Clear to auscultation, on room air, no adventitious breath sounds Cardiac: Regular rate and rhythm, loud holosystolic murmur with radiation to carotids, no JVD, normal peripheral pulses, good capillary refill Abdominal: NABS x 4 quadrants, soft, nondistended, nontender to palpation, no rebound or guarding Extremities: Normal inspection, no peripheral edema or erythema, calfs nontender to palpation Psych: Normal mood and affect Neuro: AAO x 3, strength intact bilaterally and rated 5/5, able to sit up at bedside without dizziness/lightheadedness, no motor deficits, speech is clear, no peripheral sensory deficits. Gait not assessed due to hypotension/dizziness. Results & Data Results & Data ([facility]) Vital Signs (Past 12 Hours) Vital Signs Temp Pulse Resp BP Pulse Ox 05/01/21 09:43 91 05/01/21 09:30 79 15 88/55 L 92 05/01/21 09:01 83 21 88/59 L 92 05/01/21 08:45 85 19 93 05/01/21 08:30 86 20 93/51 L 92 05/01/21 08:15 91 H 18 101/53 L 92 05/01/21 08:07 37 C 94 H 18 80/56 L 89 L Laboratory Results Laboratory Results - last 24 hr 05/01/21 05/01/21 05/01/21 09:05 09:05 11:03 WBC 14.64 H RBC 4.24 Hgb 12.0 Hct 37.9 MCV 89.4 MCH 28.3 MCHC 31.7 L RDW Std Deviation 50.3 H RDW Coeff of Jovana 15.3 H Plt Count 364 MPV 9.2 Immature Gran % (Auto) 0.3 Neut % (Auto) 81.2 Lymph % (Auto) 10.4 [place] % (Auto) 7.9 Eos % (Auto) 0.1 Baso % (Auto) 0.1 Neut # (Auto) 11.88 H Lymph # (Auto) 1.52 [place] # (Auto) 1.16 H Eos # (Auto) 0.01 Baso # (Auto) 0.02 Immature Gran # (Auto) 0.05 H Sodium 133 L Potassium 4.2 Chloride 104 Carbon Dioxide 19 L Anion Gap 11.0 BUN 57 H Creatinine 2.46 H Est Cr Clr Drug Dosing Not Reportable Est GFR ( Amer) 22.4 Est GFR (Non-Af Amer) 19.3 BUN/Creatinine Ratio 23.0 H Glucose 226 H Calcium 8.5 Magnesium 2.0 Total Bilirubin 0.8 AST 9 L ALT 17 Alkaline Phosphatase 56 Total Creatine Kinase 88 Troponin I < 0.015 Total Protein 6.8 Albumin 2.8 L Globulin 4.0 Albumin/Globulin Ratio 0.7 L TSH 0.794 Urine Color Dark Yellow Urine Appearance Clear Urine pH 5.0 Ur Specific [place] 1.020 Urine Protein Negative Urine Glucose (UA) Negative Urine Ketones Trace H Urine Blood Negative Urine Nitrite Negative Urine Bilirubin Negative Urine Urobilinogen Negative Ur Leukocyte Esterase Trace H Urine WBC (Auto) 1-5 Urine RBC (Auto) 0-4 U Hyaline Cast (Auto) 5-10 H U Epithel Cells (Auto) >30 H Urine Bacteria (Auto) Negative Diagnostic Findings Chest X-Ray 05/01/21 08:58 SINGLE VIEW CHEST CLINICAL HISTORY: Generalized weakness. FINDINGS: An AP, portable, upright chest radiograph is compared to study dated 07/24/2019 and correlated with chest CT dated 03/14/2019. The heart is enlarged. The pulmonary vasculature is noncongested. There is elevation of the right hemidiaphragm and bibasilar atelectasis. No airspace consolidation or large pleural effusion is identified. A hiatal hernia is noted. No pneumothorax is seen. The skeletal structures are osteopenic. The bony thorax is grossly intact. IMPRESSION: 1. Cardiomegaly with no acute cardiopulmonary abnormality. 2. Hiatal hernia. ACT 112: Negative or not required by law. Electronically signed by: Tomás Askew M.D. 05/01/2021 9:21 AM ECG Rhythm: normal sinus Additional Comments: 01-MAY-2021 08:20:19 [facility]-EDSTAT ROUTINE RETRIEVAL Normal sinus rhythm Inferior infarct , age undetermined Cannot rule out Anterior infarct , age undetermined Abnormal ECG When compared with ECG of 22-NOV-2019 15:09, Vent. rate has increased BY 32 BPM Inferior infarct is now Present 25mm/s 10mm/mV 150Hz 9.0.9 12SL 241 HD CLINT: 12 Referred by: REFERRED SELF Unconfirmed Vent. rate 90 BPM AL interval 130 ms QRS duration 94 ms QT/QTc 354/433 ms Code Status & VTE Plan Code Status Full code - discussed with the patient at bedside VTE Prophylaxis Plan VTE Prophylaxis will be ordered: Yes Supervising Physician Co-Signing Physician Notes Patient seen and examined in ER room saline, care coordinated with Karla Alaniz PA-C 70-year-old female admitted with acute onset of confusion started since 6:00 this morning patient was forgetful, dropping things, history of polyarthritis with severe pain and discomfort on right wrist, recent started with p.o. prednisone In the ER noted to be in acute renal failure with elevated creatinine, no report of nausea vomiting or diarrhea no report of poor p.o. intake Patient will be admitted to telemetry floor, neuro work-up ordered to rule out CVA, In the ER patient was more awake and alert able to give brief history, but does report that she has been forgetting things No complaint of headache, no weakness or paresthesia Acute renal failure, order for IV fluids, hold home medication of p.o. Lasix Avoid NSAIDs, repeat lab in a.m., Creatinine does not improved with continued IV fluids, may consider consulting nephrology in a.m. Please refer to further documentation by Karla Filipowitz PA-C discussion of other medical issues: Zandra West MD
[2021-05-01] MEDS ORDERED: PHARMACIST DISCHARGE MED REC CONSULT PRN (12:38)
--- NOTE | 2021-05-01 12:54 | Emergency Department Note ---
History of Present Illness General Chief complaint: Dizziness Stated complaint: SHAKY, DIZZY, LOW BLOOD SUGAR Time Seen by Provider: 05/01/21 08:42 History of Present Illness 70-year-old female presents to the ED with a chief complaint of feeling a little dizzy, lightheaded and little confused and shaky this morning. She is a diabetic. She started herself on some prednisone for some hand pain last night. Her glucose this morning was 222. She took 45 units of Novolin. The patient states that her symptoms are worse when she stands up. She has associated little nausea. No diarrhea or vomiting. No blood in her stools. No black tarry stools. Has been eating and drinking okay. Home Medications Medication Instructions Recorded Confirmed Type amlodipine 5 mg tablet 5 mg PO QAM 08/22/18 05/01/21 History diclofenac sodium 1 % topical gel 1 dose TOPICAL QID PRN 08/22/18 05/01/21 History (Voltaren) famotidine 20 mg tablet 20 mg PO QPM 08/22/18 05/01/21 History furosemide 20 mg tablet 20 mg PO 3XWK 08/22/18 05/01/21 History furosemide 20 mg tablet 20 mg PO QAM 08/22/18 05/01/21 History lisinopril 40 mg tablet 40 mg PO QAM 08/22/18 05/01/21 History metoprolol succinate 100 mg 100 mg PO QPM 08/22/18 05/01/21 History tablet,extended release 24 hr nitroglycerin 0.4 mg sublingual 0.4 mg SUBLINGUAL UD PRN 08/22/18 05/01/21 History tablet omeprazole 40 mg capsule,delayed 40 mg PO DAILYBB 08/22/18 05/01/21 History release prasugrel 10 mg tablet 10 mg PO QAM 08/22/18 05/01/21 History duloxetine 60 mg capsule,delayed 60 mg PO QAM 11/01/18 05/01/21 History release (Cymbalta) insulin NPH isoph U-100 human 100 45 unit SUBCUT BIDM 04/05/19 05/01/21 History unit/mL subcutaneous suspension (Novolin N NPH U-100 Insulin isophane) insulin aspart U-100 100 unit/mL 1 sliding scale dose SUBCUT 05/30/19 05/01/21 History subcutaneous solution (Novolog USEASDIRECTD PRN U-100 Insulin aspart) gabapentin 300 mg capsule 300 mg PO QAM 11/22/19 05/01/21 History (Neurontin) aspirin 81 mg tablet,delayed 81 mg PO QAM 09/27/20 05/01/21 History release tramadol 100 mg tablet,extended 100 mg PO BID 09/27/20 05/01/21 History release 24 hr tramadol 50 mg tablet 50 mg PO Q6 PRN 09/27/20 05/01/21 History oxycodone 5 mg tablet 5 mg PO Q4H PRN #12 tab 04/07/21 05/01/21 Rx rosuvastatin 40 mg tablet 40 mg PO PM 04/16/21 05/01/21 History estradiol VAGINAL UD 05/01/21 History ferrous gluconate 324 mg (38 mg 324 mg PO DAILY 05/01/21 05/01/21 History iron) tablet gabapentin 300 mg capsule 600 mg PO QPM 05/01/21 05/01/21 History Allergies Allergy/AdvReac Type Severity Reaction Status Date / Time niacin Allergy Severe HOT/BURNING Verified 04/16/21 11:55 FEELING Iodinated Contrast Media Allergy Intermediate ITCHING Verified 04/16/21 11:55 WITH IVP DYE sitagliptin AdvReac Severe PANCREATITI Verified 04/16/21 11:55 S Past Med/Surg History Medical History Anemia Aortic stenosis Moderate aortic stenosis present (MG 18.6, VERONIQUE 0.88) per 05/29/19 DSE; possible bicuspid AV per 12/2018* CAD (coronary artery disease) (07/19/14) Total of cardiac stents x 5 (most recent 2014) Carotid artery stenosis Chronic deep vein thrombosis (DVT) Per records dating back to 2015; patient denies Chronic kidney disease Diabetes IDDM Diffuse myofascial pain syndrome Fibromyalgia GERD (gastroesophageal reflux disease) controlled Hiatal hernia History of difficult intubation Hx glidescope intubation: 08/24/16: Left TKA: Glidescope #3, ETT 7.0 + PNB at [facility] Hx of sciatica Low back pain b/l LE radiculopathy Myocardial Infarction X3- /2014 Osteoarthritis of left knee Surgical History History of appendectomy History of cardiac cath X3 (2006, 2010, 2014)- TOTAL 5 CARDIAC STENTS History of lumbar fusion History of total knee arthroplasty RIGHT Family History Other No significant family history Social History Smoking Status: Former smoker Tobacco Type: Cigarettes Second Hand Exposure: No; Hx Alcohol Use: No Hx Substance Use: No Preferred Language: Thai Communication Ability: Effective Visual Impairment: No Limitations Hearing Ability: Normal 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 Beliefs That Will Affect Care: None marital status: Current Living Situation: Spouse Feels Safe at Home: Yes Assistive Devices: Walker Review of Systems A total of 10 systems reviewed and were otherwise negative As above otherwise negative for 10 systems Physical Exam Vital Signs Vital Signs - 24 hr 05/01/21 08:07 05/01/21 08:15 05/01/21 08:16 Temperature 37 C Temperature Source Temporal Artery Scan Pulse Rate - Lying Pulse Rate - Sitting Pulse Rate - Standing Pulse Rate 94 H 91 H Pulse Rate from SpO2 Sensor 91 H Respiratory Rate 18 18 Respiratory Effort / Characteristics Non-Labored Respiratory Depth Normal Blood Pressure - Lying Blood Pressure - Sitting Blood Pressure- Standing Blood Pressure 80/56 L 101/53 L Blood Pressure Mean 64 69 Pulse Oximetry 89 L 92 Oxygen Delivery Method Room Air Nasal Cannula Oxygen Flow Rate 2 Sepsis Recent Fever Within 48 Hours No Sepsis New/Unexplained Change in Mental Status No Sepsis Action Taken by Nursing No Action Required Pulse Oximetry Post Tiitration 93 05/01/21 08:30 05/01/21 08:45 05/01/21 09:01 Temperature Temperature Source Pulse Rate - Lying Pulse Rate - Sitting Pulse Rate - Standing Pulse Rate 86 85 83 Pulse Rate from SpO2 Sensor 85 84 83 Respiratory Rate 20 19 21 Respiratory Effort / Characteristics Respiratory Depth Blood Pressure - Lying Blood Pressure - Sitting Blood Pressure- Standing Blood Pressure 93/51 L 88/59 L Blood Pressure Mean 65 68 Pulse Oximetry 92 93 92 Oxygen Delivery Method Oxygen Flow Rate Sepsis Recent Fever Within 48 Hours Sepsis New/Unexplained Change in Mental Status Sepsis Action Taken by Nursing Pulse Oximetry Post Tiitration 05/01/21 09:30 05/01/21 09:43 05/01/21 11:05 Temperature Temperature Source Pulse Rate - Lying 78 Pulse Rate - Sitting 78 Pulse Rate - Standing 79 Pulse Rate 79 Pulse Rate from SpO2 Sensor 78 Respiratory Rate 15 Respiratory Effort / Characteristics Respiratory Depth Blood Pressure - Lying 88/50 L Blood Pressure - Sitting 121/50 L Blood Pressure- Standing 103/57 L Blood Pressure 88/55 L Blood Pressure Mean 66 Pulse Oximetry 92 91 Oxygen Delivery Method Nasal Cannula Oxygen Flow Rate 2 Sepsis Recent Fever Within 48 Hours Sepsis New/Unexplained Change in Mental Status Sepsis Action Taken by Nursing Pulse Oximetry Post Tiitration CONSTITUTIONAL/VITAL SIGNS: Reviewed / noted above. GENERAL: Non-toxic in appearance. INTEGUMENTARY: Warm, dry, and [place]. HEAD: Normocephalic. EYES: without scleral icterus or trauma. ENT/OROPHARYNX: clear and moist. LYMPHADENOPATHY/NECK: Is supple without lymphadenopathy or meningismus. RESPIRATORY: Lungs clear and equal. CARDIOVASCULAR: Regular rate and rhythm. GI/ABDOMEN: Soft and nontender. No organomegaly or pulsatile mass. No rebound or guarding. Normal bowel sounds. EXTREMITIES: Warm and well perfused. BACK: No CVA tenderness. NEUROLOGICAL: Intact without focal deficits. PSYCHIATRIC: normal affect. MUSCULOSKELETAL: Normally developed with good muscle tone. TRIAGE NURSING DOCUMENTATION REVIEWED. Course Administered Medications Discontinued Medications Sodium Chloride (Nss 1000ml) 1,000 mls @ 999 mls/hr IV .Q1H1M JUAN C Stop: 05/01/21 10:00 Last Infusion: 05/01/21 10:46 Dose: 0 mls/hr Documented by: [id number] Admin: 05/01/21 09:25 Dose: 999 mls/hr Documented by: [id number] Sodium Chloride (Nss 1000ml) 1,000 mls @ 999 mls/hr IV .Q1H1M ONE Stop: 05/01/21 11:47 Last Infusion: 05/01/21 12:28 Dose: 0 mls/hr Documented by: [id number] Admin: 05/01/21 10:53 Dose: 999 mls/hr Documented by: [id number] Medical Decision Making Differential Diagnosis Differential includes acute coronary syndrome, myocardial infarction, CVA, TIA, anemia, infection, pneumonia, UTI, pyelonephritis, poor nutrition, dehydration, electrolyte disturbance,hypoglycemia. Medical Records Attestation: I reviewed the patient's medical records. Home Medications Current Medication List: was personally reviewed by me Laboratory Data Attestation: I reviewed the patient's lab results. Result diagrams: 05/01/21 09:05 05/01/21 09:05 Lab Results 05/01/21 05/01/21 05/01/21 Range/Units 09:05 09:05 11:03 WBC 14.64 H (4.8-10.8) K/uL RBC 4.24 (4.2-5.4) M/uL Hgb 12.0 (12.0-16.0) g/dL Hct 37.9 (37-47) % MCV 89.4 (80-100) fL MCH 28.3 (25-34) pg MCHC 31.7 L (32-36) g/dL RDW Std Deviation 50.3 H (36.4-46.3) fL RDW Coeff of Jovana 15.3 H (11.5-14.5) % Plt Count 364 (130-400) K/uL MPV 9.2 (7.4-10.4) fL Immature Gran % (Auto) 0.3 % Neut % (Auto) 81.2 % Lymph % (Auto) 10.4 % [place] % (Auto) 7.9 % Eos % (Auto) 0.1 % Baso % (Auto) 0.1 % Neut # (Auto) 11.88 H (1.4-6.5) K/uL Lymph # (Auto) 1.52 (1.2-3.4) K/uL [place] # (Auto) 1.16 H (0.11-0.59) K/uL Eos # (Auto) 0.01 (0-0.5) K/uL Baso # (Auto) 0.02 (0-0.2) K/uL Immature Gran # (Auto) 0.05 H (0.00-0.02) K/uL Sodium 133 L (136-145) mmol/L Potassium 4.2 (3.5-5.1) mmol/L Chloride 104 (98-107) mmol/L Carbon Dioxide 19 L (21-32) mmol/L Anion Gap 11.0 (3-11) BUN 57 H (7-18) mg/dl Creatinine 2.46 H (0.6-1.2) mg/dl Est Cr Clr Drug Dosing Not Reportable Est GFR ( Amer) 22.4 ml/min Est GFR (Non-Af Amer) 19.3 ml/min BUN/Creatinine Ratio 23.0 H (10-20) Glucose 226 H (70-99) mg/dl Calcium 8.5 (8.5-10.1) mg/dl Magnesium 2.0 (1.8-2.4) mg/dl Total Bilirubin 0.8 (0.2-1) mg/dl AST 9 L (15-37) U/L ALT 17 (12-78) U/L Alkaline Phosphatase 56 (45-117) U/L Total Creatine Kinase 88 (26-192) U/L Troponin I < 0.015 (0-0.045) ng/ml Total Protein 6.8 (6.4-8.2) gm/dl Albumin 2.8 L (3.4-5.0) gm/dl Globulin 4.0 (2.5-4.0) gm/dl Albumin/Globulin Ratio 0.7 L (0.9-2) TSH 0.794 (0.300-4.500) uIu/ml Urine Color Dark Yellow Urine Appearance Clear (Clear) Urine pH 5.0 (4.5-7.5) Ur Specific [place] 1.020 (1.000-1.030) Urine Protein Negative (Negative) Urine Glucose (UA) Negative (Negative) Urine Ketones Trace H (Negative) Urine Blood Negative (Negative) Urine Nitrite Negative (Negative) Urine Bilirubin Negative (Negative) Urine Urobilinogen Negative (Negative) Ur Leukocyte Esterase Trace H (Negative) Urine WBC (Auto) 1-5 (0-5) /hpf Urine RBC (Auto) 0-4 (0-4) /hpf U Hyaline Cast (Auto) 5-10 H (0-5) /lpf U Epithel Cells (Auto) >30 H (0-5) /lpf Urine Bacteria (Auto) Negative (Negative) Imaging Data Radiologist's Impression: Chest X-Ray 05/01/21 08:58 SINGLE VIEW CHEST CLINICAL HISTORY: Generalized weakness. FINDINGS: An AP, portable, upright chest radiograph is compared to study dated 07/24/2019 and correlated with chest CT dated 03/14/2019. The heart is enlarged. The pulmonary vasculature is noncongested. There is elevation of the right hemidiaphragm and bibasilar atelectasis. No airspace consolidation or large pleural effusion is identified. A hiatal hernia is noted. No pneumothorax is s een. The skeletal structures are osteopenic. The bony thorax is grossly intact. IMPRESSION: 1. Cardiomegaly with no acute cardiopulmonary abnormality. 2. Hiatal hernia. ACT 112: Negative or not required by law. Electronically signed by: Tomás Askew M.D. 05/01/2021 9:21 AM ECG Data Attestation: I personally reviewed and interpreted this ECG as follows: Additional Comments: Per my interpretation there is a normal sinus rhythm at a rate of 90. No ST elevation. No PVCs. Normal QTC. MDM Narrative Patient presents with lightheadedness and dizziness. Her initial blood pressure was 80/56. She has a BUN of 57 and a creatinine of 2.46. Her baseline is 1.4. White blood cell count was 14.6. Chemistry panel was unremarkable. Glucose is 222. TSH was normal and troponin was negative. EKG shows a normal sinus rhythm. Chest x-ray shows cardiomegaly. Urine does not show infection. The patient was told the results of the test. The patient is felt to be stable for discharge and outpatient follow-up. Impression & Plan Acute kidney injury, Orthostatic hypotension, Acute dehydration, Lightheadedness Discharge Plan Visit Data Chief Complaint: Dizziness Stated Complaint: SHAKY, DIZZY, LOW BLOOD SUGAR ED Provider: Collin Jimenez Discharge Problem: Acute kidney injury, Orthostatic hypotension, Acute dehydration, Lightheadedness Patient Disposition: Being Evaluated by Hospitalist Forms Stand Alone Forms: [facility], Virtual Emergency Department, Important Visit Information Prescriptions Prescriptions: No Action duloxetine [Cymbalta] 60 mg capsule,delayed release(DR/EC) 60 mg PO QAM RF: 0 metoprolol succinate 100 mg tablet extended release 24 hr 100 mg PO QPM RF: 0 amlodipine 5 mg tablet 5 mg PO QAM RF: 0 omeprazole 40 mg capsule,delayed release(DR/EC) 40 mg PO DAILYBB RF: 0 famotidine 20 mg tablet 20 mg PO QPM RF: 0 nitroglycerin 0.4 mg tablet, sublingual 0.4 mg Sublingual UD PRN (Reason: Chest Pain) RF: 0 furosemide 20 mg tablet 20 mg PO 3XWK RF: 0 furosemide 20 mg tablet 20 mg PO QAM RF: 0 lisinopril 40 mg tablet 40 mg PO QAM RF: 0 diclofenac sodium [Voltaren] 1 % Gel 1 dose Topical QID PRN (Reason: Pain) RF: 0 prasugrel 10 mg tablet 10 mg PO QAM RF: 0 insulin aspart U-100 [Novolog U-100 Insulin aspart] 100 unit/mL Solution 1 sliding scale dose SUBCUT USEASDIRECTD PRN (Reason: HIGH BLOOD SUGAR) RF: 0 gabapentin [Neurontin] 300 mg capsule 300 mg PO QAM RF: 0 Novolin N NPH U-100 Insulin 100 unit/mL suspension 45 unit subcut BIDM RF: 0 aspirin 81 mg Tablet,Delayed Release (Dr/Ec) 81 mg PO QAM RF: 0 tramadol 50 mg tablet 50 mg PO Q6 PRN (Reason: Pain) RF: 0 tramadol 100 mg tablet extended release 24 hr 100 mg PO BID RF: 0 oxycodone 5 mg tablet 5 mg PO Q4H PRN (Reason: pain) Qty: 12 RF: 0 rosuvastatin 40 mg tablet 40 mg PO PM RF: 0 gabapentin 300 mg Capsule 600 mg PO QPM RF: 0 estradiol 0.01 % (0.1 mg/gram) cream VAGINAL UD RF: 0 ferrous gluconate 324 mg (38 mg iron) tablet 324 mg PO DAILY RF: 0 Referrals Referrals: Elif Falcon MD [Primary Care Provider] -
--- NOTE | 2021-05-01 13:11 | Neurology Consultation ---
Date of Consultation May 01, 2021 Assessment & Plan (1) Encephalopathy acute: 1. TTE - no ASD aortic stenosis 2. MRI brain with and without - r/o stroke- without if kidney function will not support 3. CTA head and neck - renal function will support 4. continue aspirin 81 mg for now 5. optimize HTN , HLD, DM LDL <70 6. correct kidney abnormalities 7. will have further input once studies are completed. as above Supervising Physician Co-Signing Physician Notes I have seen and discussed above patient with Dr Izzy Hughes, neurology patient discussed with Izzy younger and I have seen the patient as well. The patient was in her usual state of health went to bed woke up this morning mildly confused and tremulous her was in the room and nothing unusual happened during the night there was no witnessed seizure activity. She they found her to be mildly confused and that she repeated her blood sugar twice otherwise there was no significant confusion otherwise no aphasia no noted facial droop or unilateral weakness or numbness. She just felt generally not right she felt lightheaded if she would stand. He was not otherwise ill none of her medicines were changed in dose other than the addition of prednisone 20 mg yesterday for an inflammatory arthropathy. Today's exam she is awake and alert she is a good historian and her speech and language are normal Suspect the patient has confusion/encephalopathy related to hypotension acute renal failure possibly related to hypoxemia. Recommend MRI if abnormal would recommend a stroke work-up. Primary care has ordered a carotid ultrasound as the patient has known carotid stenosis. I would not change her antiplatelet therapy as she is currently on aspirin and Effient will follow with you Izzy Hughes MD History of Present Illness Reason for Consultation: AMS, dizziness, aortic stenosis, r/o CVA Requesting Physician: Zandra West MD Attending Physician: Zandra West MD History of Present Illness Zaina is a 70 year old female with PMH - systolic CHF, bicuspid aortic valve, CAD, HTN, HLD, history of ND, DM II, fibromyalgia, CKD stage III, inflammatory polyarthritis, osteoarthritis who presented to [facility] 05/01/21 with acute onset of confusion, dizziness, difficulty with walking. She awoke this morning around 6:30 AM, called for her son right before 7:00 AM as she had difficulty attempting to get up out of bed, felt dizzy, was confused and was unable to grasp things up with either hand (although this has been difficult previously due to her osteoarthritis), and expressed difficulty getting out words. She was able to check her glucose this morning which resulted in glucose equal to 245, and proceeded to take her long-acting insulin of 45 units. She feels that her confusion has improved at this point, however her son at bedside reports that she is unable to recall specific order of events this morning. She is also complaining of wrist pain which has been bothering her for the last 3 weeks. She had seen outpatient provider for such and was given a prescription for prednisone for 3 days then instructed to stop them. He had some leftover table ts at home from a previous prescription and took total of 20 mg last evening due to significant pain, which currently is radiating up her arm and into the left side of her neck. She uses tramadol routinely as well as oxycodone intermittently for pain relief. She has been taking Lasix 20 mg daily and has not required the 2-3 tabs per week prn. She feels current back to her baseline. denies CP, SOB, abdominal pain, N, V, vision changes falls. Allergies Allergy/AdvReac Type Severity Reaction Status Date / Time niacin Allergy Severe HOT/BURNING Verified 04/16/21 11:55 FEELING Iodinated Contrast Media Allergy Intermediate ITCHING Verified 04/16/21 11:55 WITH IVP DYE sitagliptin AdvReac Severe PANCREATITI Verified 04/16/21 11:55 S Home Medications Medication Instructions Recorded Confirmed Type amlodipine 5 mg tablet 5 mg PO QAM 08/22/18 05/01/21 History diclofenac sodium 1 % topical gel 1 dose TOPICAL QID PRN 08/22/18 05/01/21 History (Voltaren) famotidine 20 mg tablet 20 mg PO QPM 08/22/18 05/01/21 History furosemide 20 mg tablet 20 mg PO 3XWK 08/22/18 05/01/21 History furosemide 20 mg tablet 20 mg PO QAM 08/22/18 05/01/21 History lisinopril 40 mg tablet 40 mg PO QAM 08/22/18 05/01/21 History metoprolol succinate 100 mg 100 mg PO QPM 08/22/18 05/01/21 History tablet,extended release 24 hr nitroglycerin 0.4 mg sublingual 0.4 mg SUBLINGUAL UD PRN 08/22/18 05/01/21 History tablet omeprazole 40 mg capsule,delayed 40 mg PO DAILYBB 08/22/18 05/01/21 History release prasugrel 10 mg tablet 10 mg PO QAM 08/22/18 05/01/21 History duloxetine 60 mg capsule,delayed 60 mg PO QAM 11/01/18 05/01/21 History release (Cymbalta) insulin NPH isoph U-100 human 100 45 unit SUBCUT BIDM 04/05/19 05/01/21 History unit/mL subcutaneous suspension (Novolin N NPH U-100 Insulin isophane) insulin aspart U-100 100 unit/mL 1 sliding scale dose SUBCUT 05/30/19 05/01/21 History subcutaneous solution (Novolog USEASDIRECTD PRN U-100 Insulin aspart) gabapentin 300 mg capsule 300 mg PO QAM 11/22/19 05/01/21 History (Neurontin) aspirin 81 mg tablet,delayed 81 mg PO QAM 09/27/20 05/01/21 History release tramadol 100 mg tablet,extended 100 mg PO BID 09/27/20 05/01/21 History release 24 hr tramadol 50 mg tablet 50 mg PO Q6 PRN 09/27/20 05/01/21 History oxycodone 5 mg tablet 5 mg PO Q4H PRN #12 tab 04/07/21 05/01/21 Rx rosuvastatin 40 mg tablet 40 mg PO PM 04/16/21 05/01/21 History estradiol VAGINAL UD 05/01/21 History ferrous gluconate 324 mg (38 mg 324 mg PO DAILY 05/01/21 05/01/21 History iron) tablet gabapentin 300 mg capsule 600 mg PO QPM 05/01/21 05/01/21 History Patient History Medical History Anemia Aortic stenosis Moderate aortic stenosis present (MG 18.6, VERONIQUE 0.88) per 05/29/19 DSE; possible bicuspid AV per 12/2018* CAD (coronary artery disease) (07/19/14) Total of cardiac stents x 5 (most recent 2014) Carotid artery stenosis Chronic deep vein thrombosis (DVT) Per records dating back to 2015; patient denies Chronic kidney disease Diabetes IDDM Diffuse myofascial pain syndrome Fibromyalgia GERD (gastroesophageal reflux disease) controlled Hiatal hernia History of difficult intubation Hx glidescope intubation: 08/24/16: Left TKA: Glidescope #3, ETT 7.0 + PNB at [facility] Hx of sciatica Low back pain b/l LE radiculopathy Myocardial Infarction X3- Osteoarthritis of left knee Surgical History History of appendectomy History of cardiac cath X3 (2006, 2010, 2014)- TOTAL 5 CARDIAC STENTS History of lumbar fusion History of total knee arthroplasty RIGHT Family History Other No significant family history Social History Smoking Status: Former smoker Tobacco Type: Cigarettes Second Hand Exposure: No; Hx Alcohol Use: No Hx Substance Use: No Preferred Language: Swazi Communication Ability: Effective Visual Impairment: No Limitations Hearing Ability: Normal Vegetable Handler Required: No Beliefs That Will Affect Care: None marital status: Current Living Situation: Spouse Feels Safe at Home: Yes Assistive Devices: Walker Review of Systems Review of Systems: All systems reviewed & are unremarkable except as noted in HPI & below Physical Exam Physical Exam: Physical Exam: Constitutional: appearance over nourished, healthy Ears, Nose, Mouth and Throat: mucous membranes moist, no injection and skin normal, eyes normal Cardiovascular: loud systolic ejection murmur and regular rate and rhythm Respiratory: clear to auscultation (CTA) and no rales, rhonchi or wheeze Musculoskeletal: no peripheral edema and good distal pulses Skin: no stigmata of neurocutaneous disease noted and normal and intact Eyes: extraocular muscles intact (EOMI) and pupils equal, round and reactive to light (PERRL) NEUROLOGIC EXAMINATION: Mental status: Alert and interactive Oriented to [facility], 2020, location Oriented to person Speech fluent with no evidence of aphasia Cranial Nerves smile eye brow raise symmetric Reflexes: Deep tendon reflexes were symmetrical and graded 2/5. down going toes Sensory: in tact to light and cool touch Coordination: Romberg absent, finger to nose no bipass Gait/Stance: Posture normal. Gait normal: with steady with steps, base, turning, heel and toe walking (some difficulty) and tandem gait. Motor: Negative for pronator drift of out stretched arms with eyes closed. Strength: hand neurology nurse biceps triceps 5/5, hip flex plantar flex ext Results & Data ([facility]) Vital Signs (Past 12 Hours) Vital Signs Temp Pulse Resp BP Pulse Ox 05/01/21 09:43 91 05/01/21 09:30 79 15 88/55 L 92 05/01/21 09:01 83 21 88/59 L 92 05/01/21 08:45 85 19 93 05/01/21 08:30 86 20 93/51 L 92 05/01/21 08:15 91 H 18 101/53 L 92 05/01/21 08:07 37 C 94 H 18 80/56 L 89 L Laboratory Results Abnormal lab results 05/01/21 05/01/21 05/01/21 Range/Units 09:05 09:05 11:03 WBC 14.64 H (4.8-10.8) K/uL MCHC 31.7 L (32-36) g/dL RDW Std Deviation 50.3 H (36.4-46.3) fL RDW Coeff of Jovana 15.3 H (11.5-14.5) % Neut # (Auto) 11.88 H (1.4-6.5) K/uL Bath # (Auto) 1.16 H (0.11-0.59) K/uL Immature Gran # (Auto) 0.05 H (0.00-0.02) K/uL Sodium 133 L (136-145) mmol/L Carbon Dioxide 19 L (21-32) mmol/L BUN 57 H (7-18) mg/dl Creatinine 2.46 H (0.6-1.2) mg/dl BUN/Creatinine Ratio 23.0 H (10-20) Glucose 226 H (70-99) mg/dl POC Glucose (70-99) mg/dl AST 9 L (15-37) U/L Albumin 2.8 L (3.4-5.0) gm/dl Albumin/Globulin Ratio 0.7 L (0.9-2) Urine Ketones Trace H (Negative) Ur Leukocyte Esterase Trace H (Negative) U Hyaline Cast (Auto) 5-10 H (0-5) /lpf U Epithel Cells (Auto) >30 H (0-5) /lpf 05/01/21 Range/Units 11:44 WBC (4.8-10.8) K/uL MCHC (32-36) g/dL RDW Std Deviation (36.4-46.3) fL RDW Coeff of Jovana (11.5-14.5) % Neut # (Auto) (1.4-6.5) K/uL Bath # (Auto) (0.11-0.59) K/uL Immature Gran # (Auto) (0.00-0.02) K/uL Sodium (136-145) mmol/L Carbon Dioxide (21-32) mmol/L BUN (7-18) mg/dl Creatinine (0.6-1.2) mg/dl BUN/Creatinine Ratio (10-20) Glucose (70-99) mg/dl POC Glucose 165 H (70-99) mg/dl AST (15-37) U/L Albumin (3.4-5.0) gm/dl Albumin/Globulin Ratio (0.9-2) Urine Ketones (Negative) Ur Leukocyte Esterase (Negative) U Hyaline Cast (Auto) (0-5) /lpf U Epithel Cells (Auto) (0-5) /lpf Diagnostic Findings CXR-Cardiomegaly with no acute cardiopulmonary abnormality.. Hiatal hernia. TTE- EF 55-60% opening of aortic valve is severely reduced. no evidence of ASD
[2021-05-01] MEDS ORDERED: PHARMACY GLYCEMIC MGMT CONSULT STA (13:13)
[2021-05-01] MEDS ORDERED: NON-FORMULARY MEDICATION (Omeprazole 40 mg capsule,delayed release(DR/EC)) PO SCH (13:35)
--- NOTE | 2021-05-01 14:02 | XRay Report ---
XR wrist RT min 3V routine CLINICAL HISTORY: osteoarthritis, severe pain COMPARISON: None. DISCUSSION: No acute fractures or dislocations are visualized. There are moderate osteoarthritic reyes ges the level the first carpometacarpal joint. There is a 7 mm navicular cyst. A venous catheter is v isualized within the radial aspect of the wrist. There is joint space narrowing at the level the seco nd and third metacarpal phalangeal joints. There is mild ulnar positive variance. IMPRESSION: 1. Arthritic changes most severe at the level the first carpal metacarpal joint 2. 7 mm navicular cyst 3. No acute fractures ACT 112: Negative or not required by law. Electronically signed by: Triston Duenas M.D. 05/01/2021 2:01 PM
--- NOTE | 2021-05-01 14:45 | XRay Report ---
XR wrist LT min 3V routine CLINICAL HISTORY: osteoarthritis, severe pain COMPARISON: April 16, 2021 DISCUSSION: No acute fracture or dislocation seen. There is overlying wire is seen which slightly limits evaluati on. Severe degenerative changes of the first carpometacarpal joint and degenerative changes of the radioc arpal and interphalangeal joints are seen. Soft tissue edema is demonstrated. IMPRESSION: No acute fracture or dislocation. Severe degenerative changes as above. Overall findings are unchanged since prior study. ACT 112: Negative or not required by law. The above report was generated using voice recognition software. It may contain grammatical, syntax o r spelling errors. Electronically signed by: Martina Arthur DO 05/01/2021 2:43 PM
--- NOTE | 2021-05-01 15:53 | CT Scan Report ---
CT SCAN OF THE BRAIN WITHOUT IV CONTRAST CLINICAL HISTORY: Change in mental status. Dizziness. COMPARISON STUDY: CT of the brain dated 03/26/2017. TECHNIQUE: Unenhanced axial CT scan of the brain is performed from the vertex to the skull base. A do se lowering technique was utilized adhering to the principles of ALARA. FINDINGS: Brain parenchyma: There are age-related involutional changes noting mild to moderate patchy subcorti david and periventricular microangiopathic change. There is no hemorrhage, mass effect, or evidence of acute territorial ischemia by CT criteria. Puckett-white matter differentiation is preserved. No extra-a xial fluid collection is seen. A chronic lacunar infarct is noted in the left thalamus. Ventricles, sulci, cisterns: Prominent secondary to involutional change. Intracranial vasculature: There is atherosclerotic calcification of the cavernous carotid and vertebr al arteries. Calvarium: Unremarkable. Sinuses and mastoids: The visualized paranasal sinuses are clear. The mastoid air cells are well pneu matized. Orbits: The bony orbits are grossly intact. IMPRESSION: There is no hemorrhage, mass effect, or evidence of acute territorial ischemia by CT jessica lauren. ACT 112: Negative or not required by law. Electronically signed by: Tomás Askew M.D. 05/01/2021 3:51 PM
--- NOTE | 2021-05-01 15:58 | CT Scan Report ---
CT SCAN OF THE CERVICAL SPINE CLINICAL HISTORY: Dizziness. Neck pain. COMPARISON STUDY: CT of the cervical spine dated 03/26/2017. TECHNIQUE: CT scan of the cervical spine is performed from the skull base to the upper thoracic spine . Images are reviewed in the axial, sagittal, and coronal planes. IV contrast was not administered fo r this examination. A dose lowering technique was utilized adhering to the principles of ALARA. CT DOSE: 1041.75 mGy.cm FINDINGS: Skeletal structures: The skeletal structures are osteopenic. There is no evidence of fracture or subl uxation involving the cervical spine. Vertebral body height is maintained. There is minimal anterolis thesis at C3-C4 and C4-C5. Alignment is otherwise preserved. There is straightening of cervical lordo sis. Anterior osteophytes are seen throughout. There is complete bony fusion of the left facet joints at C3 and C4. The odontoid process and lateral masses are intact. The atlantoaxial articulation is p reserved noting productive degenerative change. The spinous processes appear intact. There is moderat e multilevel cervical spondylosis. Uncovertebral and facet arthropathy contribute sterile foraminal s tenosis at several levels. Intervertebral discs: Moderate disc space narrowing is noted at C5-C6, C6-C7, and C7-T1. Mild disc sp arnulfo narrowing is seen at the remaining cervical levels.. Central canal: Large posterior disc osteophyte complexes at C4-C5, C5-C6, C6-C7, and C7-T1 likely con tribute to multilevel acquired compromise of the central canal. Soft tissues: The prevertebral and paraspinous soft tissues are within normal limits. There is athero sclerotic calcification of the carotid bulbs. Calvarium: The visualized calvarium at the skull base appears intact. Brain parenchyma: Partially visualized brain parenchyma at the skull base is within normal limits. Sinuses and mastoids: The visualized paranasal sinuses are clear. The mastoid air cells are well pneu matized. Lung apices: Clear as visualized. IMPRESSION: 1. There is no evidence of fracture or subluxation involving the cervical spine. 2. Osteopenia and spondylotic change as above. ACT 112: Negative or not required by law. Electronically signed by: Tomás Askew M.D. 05/01/2021 3:56 PM
--- NOTE | 2021-05-01 16:24 | Electrocardiogram Report ---
Test Reason : Blood Pressure : / mmHG Vent. Rate : 090 BPM Atrial Rate : 090 BPM P-R Int : 130 ms QRS Dur : 094 ms QT Int : 354 ms P-R-T Axes : 017 -07 -05 degrees QTc Int : 433 ms Normal sinus rhythm Inferior infarct , age undetermined Poor R wave progression, consider anterior UT vs. lead placement vs. LVH Abnormal ECG When compared with ECG of 22-NOV-2019 15:09, Vent. rate has increased BY 32 BPM Inferior infarct is now Present Confirmed by Armando Chowdary ([id number]) on 05/01/2021 4:24:08 PM Referred By: REFERRED SELF Confirmed By:Armando Chowdary
--- NOTE | 2021-05-01 16:34 | Ultrasound Report ---
ULTRASOUND OF THE CAROTID ARTERIES CLINICAL HISTORY: Dizziness. COMPARISON STUDY: Carotid artery ultrasound dated 03/29/2006. TECHNIQUE: Real-time, grayscale, and color Doppler sonography of the carotid arteries is performed. I mages are reviewed in the transverse and longitudinal planes. FINDINGS: Blood pressure in the right arm measures 105/40 and blood pressure in the left arm measures 145. The carotid arteries are patent bilaterally and demonstrate antegrade flow. There is moderate atheros clerotic shadowing plaques in the carotid bulbs bilaterally. Normal doppler arterial waveforms are se en throughout. Velocity measurements are listed below. Common carotid peak systolic velocity (cm/sec): RIGHT: 75 LEFT: 83 ICA proximal peak systolic velocity (cm/sec): RIGHT: 60 LEFT: 77 ICA mid peak systolic velocity (cm/sec): RIGHT: 90 LEFT: 84 ICA distal peak systolic velocity (cm/sec): RIGHT: 75 LEFT: 76 ICA/CC peak systolic ratio: RIGHT: 1.2 LEFT: 1.0 Antegrade flow was shown in the vertebral arteries. The external carotid arteries are patent. IMPRESSION: 1. There is no sonographic evidence of hemodynamically significant stenosis in the right or left [place] arterial system. 2. Antegrade flow is shown in the vertebral arteries. ACT 112: Negative or not required by law. Electronically signed by: Tomás Askew M.D. 05/01/2021 4:33 PM
[2021-05-01] MEDS ORDERED: GLUCOSE 40% GEL 15 GM TUBE PO PRN (17:13)
[2021-05-01] MEDS ORDERED: ONDANSETRON INJ 2 MG/ML 2 ML VIAL IV PRN (17:13)
[2021-05-01] MEDS ORDERED: GLUCAGON FOR INJ 1 MG VIAL SQ PRN (17:13)
[2021-05-01] MEDS ORDERED: GLUCOSE 10 TABS/TUBE PO PRN (17:13)
[2021-05-01] MEDS ORDERED: ACETAMINOPHEN 325 MG TAB PO PRN (17:13)
[2021-05-01] MEDS ORDERED: traMADol HCL 50 MG TABLET PO PRN (17:13)
[2021-05-01] MEDS ORDERED: CARBOHYDRATES FOR HYPOGLYCEMIA PO PRN (17:13)
[2021-05-01] MEDS ORDERED: DEXTROSE 50% 50 ML SYRINGE IV PRN (17:13)
[2021-05-01] MEDS ORDERED: DICLOFENAC SOD 1% GEL 100 GM TUBE EXT PRN (17:13)
[2021-05-01] MEDS ORDERED: PATIENT'S HEIGHT AND/OR WEIGHT NEEDED SCH (17:30)
[2021-05-01] MEDS ORDERED: PHARMACY GLYCEMIC MGMT CONSULT PRN (18:27)
[2021-05-01] MEDS ORDERED: predniSONE 5 MG TAB PO SCH (19:00)
[2021-05-01] MEDS ORDERED: INSULIN HUMAN NPH SC ONE (19:00)
--- NOTE | 2021-05-01 19:37 | Pharmacy Report ---
Pharmacy Glycemic Short Note 2 - Date of Service May 01, 2021 - Glycemic Short BSG Results (Last 24 hours): 05/01/21 05/01/21 05/01/21 09:05 11:44 17:46 Glucose 226 H POC Glucose 165 H 187 H OUTPATIENT ANTIDIABETIC REGIMEN: * NPH 45 units SC BIDM * Novolog SSI (8-12 units) SC AC * HbA1c ordered ASSESSMENT: * TEENA is a 70 year old female who presents to ED after waking up this morning with confusion, dizziness, and word-finding difficulty. * Per H&P, BSG was 245 mg/dL this morning and patient gave full NPH dose of 45 units * BSG on admission is 226 mg/dL, currently 187 mg/dL * Patient eating ~30 g of carbs with dinner per RN - will give reduced dose of NPH this evening to err on side of caution and will utilize an overnight check in case this is insufficient PLAN FOR INPATIENT GLYCEMIC CONTROL: * Basal insulin * NPH 30 units SC x 1 now (~2/3 of home dose) * Reassess in AM * Bolus insulin * NovoLog per scale ACHS or Q6hrs while NPO * Goal Range: Low 110 mg/dL - High 140 mg/dL * Correction Factor: 25 mg/dL/unit * Nutritional / Prandial insulin per carb ratio of 1 unit per 8 grams CHO consumed * 0200 check with same parameters PLAN FOR DISCHARGE: * tbd - awaiting HbA1c
[2021-05-01] MEDS ORDERED: METOPROLOL SUCC 50MG EXT REL TAB PO SCH (21:00)
[2021-05-01] MEDS ORDERED: FAMOTIDINE 20 MG TAB PO SCH (21:00)
[2021-05-01] MEDS: INSULIN ASPART 100 UNITS/ML 3 ML PEN SC SCH ×2 (21:00→21:58)
[2021-05-01] MEDS ORDERED: GABAPENTIN 300 MG CAP PO SCH (21:00)
[2021-05-01] MEDS ORDERED: ROSUVASTATIN CALCIUM 20 MG TAB PO SCH (21:00)
[2021-05-01] MEDS: predniSONE 20 MG TAB PO SCH (21:18)
[2021-05-01] MEDS ORDERED: oxyCODONE HCL IR 5 MG TAB (IMMEDIATE RELEASE) PO PRN (21:57)
[2021-05-01] MEDS ORDERED: oxyCODONE HCL IR 5 MG TAB (IMMEDIATE RELEASE) ONE (22:01)
[2021-05-01] MEDS: OMEPRAZOLE 40 MG PO SCH (22:44)
[2021-05-02] MEDS ORDERED: INSULIN ASPART 100 UNITS/ML 3 ML PEN SC SCH (02:00)
[2021-05-02] MEDS: TRAMADOL HCL 100 MG PO SCH ×2 (02:24→08:42)
[2021-05-02] MEDS: TRAMADOL 100 MG PO SCH ×2 (02:25→08:42)
[2021-05-02] MEDS ORDERED: SODIUM CHLORIDE 0.9% 1000ML 1,000 ML IV SCH (03:45)
[2021-05-02] MEDS ORDERED: SODIUM CHLORIDE 0.9% 500 ML IV SCH (03:45)
[2021-05-02] MEDS: OMEPRAZOLE 40 MG PO SCH (05:16)
[2021-05-02] MEDS ORDERED: PANTOprazole 40 MG TAB PO SCH (06:30)
[2021-05-02 08:19] LABS: Hematocrit (blood only) 35.8 % (37-47); Hemoglobin 11.3 g/dL (12.0-16.0); Mean Corpuscular Hemoglobin 28.3 pg (25-34); Mean Corpuscular Hgb Conc 31.6 g/dL (32-36); Mean Corpuscular Volume 89.5 fL (80-100); Mean Platelet Volume 9.1 fL (7.4-10.4); Platelet Count 290 K/uL (130-400); RDW Coefficient of Variation 15.5 % (11.5-14.5); RDW Standard Deviation 50.1 fL (36.4-46.3)
[2021-05-02] MEDS ORDERED: INSULIN HUMAN NPH SC SCH ×2 (08:30→16:30)
[2021-05-02 08:49] LABS: Albumin Globulin Ratio 0.7 (0.9-2); Albumin Level 2.6 gm/dl (3.4-5.0); BUN Creatinine Ratio 27.6 (10-20); Bilirubin,Total 0.5 mg/dl (0.2-1); Calcium 8.3 mg/dl (8.5-10.1); Est GFR (Non-African American) 32.8 ml/min; Globulin 3.7 gm/dl (2.5-4.0); Potassium 4.8 mmol/L (3.5-5.1); Total Protein 6.3 gm/dl (6.4-8.2)
[2021-05-02] MEDS: INSULIN ASPART 100 UNITS/ML 3 ML PEN SC SCH ×2 (08:51→12:19)
[2021-05-02 08:53] LABS: Estimated Average Glucose 189 mg/dl; Hemoglobin A1C 8.2 % (4.5-5.6)
[2021-05-02] MEDS ORDERED: PRASugrel TAB 10 MG TAB PO SCH (09:00)
[2021-05-02] MEDS ORDERED: DULoxetine HCL 60 MG CAP PO SCH (09:00)
[2021-05-02] MEDS ORDERED: FERROUS GLUCONATE 324 MG TAB PO SCH (09:00)
[2021-05-02] MEDS ORDERED: GABAPENTIN 300 MG CAP PO SCH (09:00)
[2021-05-02] MEDS ORDERED: ASPIRIN 81 MG ECTAB PO SCH (09:00)
[2021-05-02] MEDS ORDERED: amLODIPine BESYLATE 5 MG TAB PO SCH (09:00)
--- NOTE | 2021-05-02 10:44 | Progress Notes ---
DATE OF NOTE: 05/02/2021. I am seeing the patient in followup of some brief confusion, manifested by doing a fingerstick for he r blood sugar twice not recalling that she had done so. She was found to have fairly significant pre renal azotemia, was hypotensive and hypoxemic. Her carotid ultrasound showed no significant stenosis . An MRI has not been ordered yet. The patient has done well overnight without any confusion. This morning, she is awake and alert. Her affect is appropriate. Speech and language are more normal an d her memory is intact. IMPRESSION: Confusional episode, probably toxic metabolic related to hypotension. Await MRI of the b rain. If unremarkable, we will sign off. I do not think she needs an EEG at this time as the event was rather minor, and I think otherwise explained, however, if she had recurrent events it would be r easonable to do an EEG. Job ID: [id number]
[2021-05-02] MEDS: predniSONE 20 MG TAB PO SCH (12:18)
--- NOTE | 2021-05-02 14:29 | Magnetic Resonance Report ---
MRI OF THE BRAIN WITHOUT CONTRAST CLINICAL HISTORY: confusional episode COMPARISON STUDY: Head CT May 01, 2021. TECHNIQUE: Utilizing a 1.5 Erin magnet and dedicated coil, multiplanar, multiecho imaging of the bra in was performed without IV contrast. FINDINGS: There are no foci of restricted diffusion to suggest acute infarct. No acute intracranial h emorrhage, midline shift or mass effect is present. Ventricular system is unremarkable. Basal cistern s are patent. There are no extra-axial collections. Flow-voids for the major intracranial vessels are present. There are moderate white matter T2 hyperintense foci. There are foci of increased T2 signal within the jill. Calvarial signal is normal. Orbits are unremarkable on this unenhanced examination. No intracranial masses identified on this unenhanced exam. IMPRESSION: 1. No acute intracranial findings. 2. Periventricular and subcortical white matter T2 hyperintense foci and T2 hyperintense foci within the jill. The findings favor small vessel disease. ACT 112: Negative or not required by law. Electronically signed by: Wolfgang Baumann M.D. 05/02/2021 2:28 PM
--- NOTE | 2021-05-02 16:02 | Hospitalist Progress Note ---
Date of Service May 02, 2021 Assessment & Plan (1) Weakness with dizziness: Plan: Symptom has completely resolved, blood pressure stable, Patient is ambulated independently, MRI of brain, negative for acute stroke, carotid Doppler shows no significant stenosis Appreciate input from neurology, possible acute symptoms onset of confusion due to encephalopathy in a combination of acute renal failure, recent steroid treatment of her dehydration No evidence of any seizure does not need labs EEG No neurological procedure or treatment any other Stable to be discharged home today (2) SAM (acute kidney injury): Plan: possible due to NSAID's -patient mention she took a few tablets of naproxen for her wrist pain as it was intolerable Patient is on lisinopril and Lasix Renal function improved to 1.5 with IV fluids Baseline creatinine 1.2(admission creatinine was 2.5) Patient is discharged home today asked to continue to hold Lasix and lisinopril till evaluated by her family physician and repeat BMP check Patient is counseled to avoid NSAIDs (3) CAD (coronary artery disease): Plan: Stable, no complaint of chest pain or discomfort Patient is going to be continued with outpatient cardiac meds metoprolol, baby aspirin, Effient, rosuvastatin - (4) Bicuspid aortic valve: Plan: -History of such Echo shows severe aortic stenosis, (5) Aortic stenosis: Plan: severe aortic stenosis noted on echo: Echo shows bicuspid aortic valve, with aortic valve moderately calcified severe stenosis of aortic valve opening Possible causing the dizzy spell? Does not have any symptoms at present Patient follows with [facility] cardiology Dr. Hayden Cardiology and patient family physician will be updated regarding the finding (6) Carotid artery stenosis: Plan: Carotid ultrasound shows no evidence of significant carotid stenosis, (7) PVD (peripheral vascular disease): Plan: - Hx of such (8) Diabetes: Plan: -Insulin sliding scale while in hospital, Home diabetic medication resumed on discharge (9) Polyarthritis of multiple sites: Plan: X-ray of wrist shows advanced DJD Patient follows with [facility] rheumatology already Prednisone dose reduced to 5 mg daily, Patient reports improvement of wrist pain increase mobility Patient is asked not to take higher dose of prednisone 20 mg daily(possible causing the confusion?) Is worried about arthritis flare after discontinuing prednisone Will be discharged on small dose of 5 mg prednisone daily for 7 days follow-up with rheumatology and family physician - DVT ppx: - teds, scds, CODE: Full code Dispo: To be discharged home today, Of care discussed with patient and his all questions answered Admission and Anticipated Discharge Date Admission Date: May 01, 2021 Subjective Follow-up visit for confusion acute renal failure: Duration of confusion disorientation, mental status to baseline, patient conversing appropriately very pleasant, walking independently today in room, No complaint of headache or blurred vision, no weakness or paresthesia Bilateral wrist pain has improved markedly, Denies of any other pain or discomfort, Feels she is ready to be discharged home present at bedside Review of Systems Review of Systems: All systems reviewed & are unremarkable except as noted in Subjective Physical Exam Constitutional: WD/WN, vitals as above Eyes: PERRL, conjunctivae normal, anicteric sclerae ENMT: external ear and nose normal, oropharynx normal Neck: trachea midline, no thyromegaly Respiratory: normal respiratory effort, lungs clear to auscultation Cardiovascular: RRR, no murmur, no edema Gastrointestinal (Abdomen): normal bowel sounds, soft, nontender, no hepatosplenomegaly Musculoskeletal: Extremities: + wrist abnormality (improved pain on bilateral wrist able to have full range of ivonne) Neurologic: PERRL, EOMI, accommodation nl, no face palsy, no dysarthria Psychiatric: A+Ox3, euthymic affect Results & Data Results & Data ([facility]) Vital Signs (Past 12 Hours) Vital Signs Temp Pulse Pulse Pulse Resp BP BP 05/02/21 15:53 36.5 C 91 H 82 18 128/61 120/65 05/02/21 12:00 36.5 C 82 18 120/65 05/02/21 08:02 55 L 05/02/21 07:49 36.5 C 54 L 18 108/61 05/02/21 06:34 118/64 Pulse Ox 05/02/21 15:53 95 05/02/21 12:00 95 05/02/21 08:02 05/02/21 07:49 95 05/02/21 06:34
--- NOTE | 2021-05-02 16:05 | Communication Note ---
Date of Service: May 02, 2021 Code 44 attestation; She is a 70-year-old female was admitted with acute confusion which was due to metabolic and colopathy. She was evaluated by neurologist and ruled out for any stroke. Her chart, labs and imaging studies reviewed. She was appropriately managed by the attending physician and is medically stable to be discharged. By [facility] guidelines, a determination that the admission or continued stay is not medically necessary has been made by a member of the UR committee and a physician for this hospital stay, therefore a Code 44 will be completed and the Inpatient admission will be changed to outpatient. Dr Wally Schulz
--- NOTE | 2021-05-02 16:39 | Discharge Summary ---
Date of Service May 02, 2021 Admission HPI Per Admitting Provider This is a 70 yo F with PMHx of systolic CHF, bicuspid aortic valve, CAD, HTN, HLD, history of [place], DM type II, fibromyalgia, CKD stage III, inflammatory polyarthritis, osteoarthritis who presents with acute onset of confusion, dizziness, difficulty with walking. She is present here with her son at bedside. Patient notes that she awoke this morning around 6:30 AM, called for her son right before 7:00 AM as she had difficulty attempting to get up out of bed, felt dizzy, was confused and was unable to grasp things up with either hand (although this has been difficult previously due to her osteoarthritis), and expressed difficulty getting out words that she wanted to say. She denies any focal weakness in her legs or arms. Denies any history of previous stroke. She was able to check her glucose this morning which resulted in glucose equal to 245, and proceeded to take her long-acting insulin of 45 units. Patient has not yet eaten today. She feels that her confusion has improved at this point, however her son at bedside reports that she is unable to recall specific order of events this morning. Another main complaint that the patient has is that her wrist have been bothering her severely for the last 3 weeks. She had seen outpatient provider for such and was given a prescription for prednisone for 3 days then instructed to stop them. He had some leftover tablets at home from a previous prescription and took total of 20 mg last evening due to significant pain, which currently is radiating up her arm and into the left side of her neck. She uses tramadol routinely as well as oxycodone intermittently for pain relief. Her son at bedside requests that she has a long-acting morphine or oxycodone given to her because the IR isn't working. Patient took her medications last night. She has been taking Lasix 20 mg daily as directed, but reports that she has not required the 2-3 tabs per week on an as-needed basis. He also recently stopped taking her iron tablet. At baseline the patient ambulates without any assistive diet devices, only a walking cane whenever she goes on a hike around her [place]. Principal Diagnosis Acute renal failure Acute confusion secondary to acute renal failure: Dehydration: Resolved Severe arthritis of both hands Discharge Exam Constitutional WD/WN, vitals as above Eyes PERRL, conjunctivae normal, anicteric sclerae ENMT external ear and nose normal, oropharynx normal Neck trachea midline, no thyromegaly Respiratory normal respiratory effort, lungs clear to auscultation Cardiovascular RRR, no murmur, no edema Gastrointestinal (Abdomen) normal bowel sounds, soft, nontender, no hepatosplenomegaly Musculoskeletal Extremities: + wrist abnormality (improved pain on bilateral wrist able to have full range of ivonne) Neurologic PERRL, EOMI, accommodation nl, no face palsy, no dysarthria Psychiatric A+Ox3, euthymic affect Discharge Data Allergies Allergy/AdvReac Type Severity Reaction Status Date / Time niacin Allergy Severe HOT/BURNING Verified 04/16/21 11:55 FEELING Iodinated Contrast Media Allergy Intermediate ITCHING Verified 04/16/21 11:55 WITH IVP DYE sitagliptin AdvReac Severe PANCREATITI Verified 04/16/21 11:55 S Consultations 05/01/21 11:20 ED Decision to Admit Stat 05/01/21 12:38 Consult Neurology Routine Ordered Studies 05/01/21 12:41 CT head/brain wo con Stat 05/01/21 12:54 CT cervical spine wo con Stat 05/01/21 13:02 US carotid doppler BI Stat 05/02/21 09:27 MR brain wo con Routine Hospital Course (1) Weakness with dizziness: Symptom has completely resolved, blood pressure stable, Patient is ambulated independently, MRI of brain, negative for acute stroke, carotid Doppler shows no significant stenosis Appreciate input from neurology, possible acute symptoms onset of confusion due to encephalopathy in a combination of acute renal failure, recent steroid treatment of her dehydration No evidence of any seizure does not need labs EEG No neurological procedure or treatment any other Stable to be discharged home today (2) SAM (acute kidney injury): possible due to NSAID's -patient mention she took a few tablets of naproxen for her wrist pain as it was intolerable Patient is on lisinopril and Lasix Renal function improved to 1.5 with IV fluids Baseline creatinine 1.2(admission creatinine was 2.5) Patient is discharged home today asked to continue to hold Lasix and lisinopril till evaluated by her family physician and repeat BMP check Patient is counseled to avoid NSAIDs (3) CAD (coronary artery disease): Stable, no complaint of chest pain or discomfort Patient is going to be continued with outpatient cardiac meds metoprolol, baby aspirin, Effient, rosuvastatin - (4) Bicuspid aortic valve: -History of such Echo shows severe aortic stenosis, (5) Aortic stenosis: severe aortic stenosis noted on echo: Echo shows bicuspid aortic valve, with aortic valve moderately calcified severe stenosis of aortic valve opening Possible causing the dizzy spell? Does not have any symptoms at present Patient follows with [facility] cardiology Dr. Hayden Cardiology and patient family physician will be updated regarding the finding (6) Carotid artery stenosis: Carotid ultrasound shows no evidence of significant carotid stenosis, (7) PVD (peripheral vascular disease): - Hx of such (8) Diabetes: -Insulin sliding scale while in hospital, Home diabetic medication resumed on discharge (9) Polyarthritis of multiple sites: X-ray of wrist shows advanced DJD Patient follows with [facility] rheumatology already Prednisone dose reduced to 5 mg daily, Patient reports improvement of wrist pain increase mobility Patient is asked not to take higher dose of prednisone 20 mg daily(possible causing the confusion?) Is worried about arthritis flare after discontinuing prednisone Will be discharged on small dose of 5 mg prednisone daily for 7 days follow-up with rheumatology and family physician - DVT ppx: - teds, scds, CODE: Full code Dispo: To be discharged home today, Of care discussed with patient and his all questions answered Total Time Total Time Spent Total Time Spent (In Minutes): 35 minutes Discharge Plan Discharge Items Patient Disposition: Home - Self-Care Reason For Visit: HYPOTENSION, DEHYDRATION, SAM Discharge Diagnosis: Acute renal failure Acute confusion secondary to acute renal failure: Dehydration: Resolved Severe arthritis of both hands Activity: Resume your previous activity Non-emergency contact: Primary Care Provider Call non-emergency contact if: you have any medication questions Follow-up/Referrals: Elif Falcon MD [Primary Care Provider] - Diet: Carb Consistent or DM2 and Heart Healthy Addtl Attending Provider Instructions: Please take all medications as instructed on discharge list below. It is recommended that you follow-up with your primary care physician within 1-2 weeks of hospital discharge to ensure you are still doing well. Please call if you have any questions or problems. You can reach a [facility] hospitalist on duty at [facility] 24 hours a day by calling [phone] Addtl Loft Worker Provider Instructions: Do not take group of medications belonging to NSAIDs group -can cause worsening of your kidney function. List Of these medications includes but not limited to: Aspirin Diclofenac Ibuprofen, Motrin, Advil Toradol,ketorolac Naproxen, Aleve, Naprosyn You can take Tylenol as needed for pain or fever When buying [id number] pain medications please consult with pharmacy if you are not sure regarding ingredients, as a lot of the pain medications have combination of NSAIDs and Tylenol. Do not take Lasix or lisinopril for next few days, Lab work: Need lab work basic metabolic panel in next 2-3 days, your family physician's office at [facility] will be notified Lasix and lisinopril can be resumed as renal function improves baseline Take low-dose prednisone 5 mg daily for 7 days only and then stop Continue to follow-up with rheumatology for ongoing treatment of arthritis Pending Studies at Discharge: No Stand-Alone Forms: My [facility] Mailgun, Smoking Cessation Medications and DC Order Prescriptions: New prednisone 5 mg tablet 5 mg PO DAILY Qty: 7 RF: 0 Continued duloxetine [Cymbalta] 60 mg capsule,delayed release(DR/EC) 60 mg PO QAM RF: 0 metoprolol succinate 100 mg tablet extended release 24 hr 100 mg PO QPM RF: 0 amlodipine 5 mg tablet 5 mg PO QAM RF: 0 omeprazole 40 mg capsule,delayed release(DR/EC) 40 mg PO DAILYBB RF: 0 famotidine 20 mg tablet 20 mg PO QPM RF: 0 nitroglycerin 0.4 mg tablet, sublingual 0.4 mg Sublingual UD PRN (Reason: Chest Pain) RF: 0 furosemide 20 mg tablet 20 mg PO 3XWK RF: 0 furosemide 20 mg tablet 20 mg PO QAM RF: 0 lisinopril 40 mg tablet 40 mg PO QAM RF: 0 diclofenac sodium [Voltaren] 1 % Gel 1 dose Topical QID PRN (Reason: Pain) RF: 0 prasugrel 10 mg tablet 10 mg PO QAM RF: 0 insulin aspart U-100 [Novolog U-100 Insulin aspart] 100 unit/mL Solution 1 sliding scale dose SUBCUT USEASDIRECTD PRN (Reason: HIGH BLOOD SUGAR) RF: 0 gabapentin [Neurontin] 300 mg capsule 300 mg PO QAM RF: 0 Novolin N NPH U-100 Insulin 100 unit/mL suspension 45 unit subcut BIDM RF: 0 aspirin 81 mg Tablet,Delayed Release (Dr/Ec) 81 mg PO QAM RF: 0 tramadol 50 mg tablet 50 mg PO Q6 PRN (Reason: Pain) RF: 0 tramadol 100 mg tablet extended release 24 hr 100 mg PO BID RF: 0 oxycodone 5 mg tablet 5 mg PO Q4H PRN (Reason: pain) Qty: 12 RF: 0 rosuvastatin 40 mg tablet 40 mg PO PM RF: 0 gabapentin 300 mg Capsule 600 mg PO QPM RF: 0 estradiol 0.01 % (0.1 mg/gram) cream VAGINAL UD RF: 0 ferrous gluconate 324 mg (38 mg iron) tablet 324 mg PO DAILY RF: 0 Discharge Orders: Discharge Order (Routine); Ordered 05/02/21 Ordered By: Zandra Alarcon/Other Patient Handouts: A1C, Managing Type 2 Diabetes, Symptoms of Stroke Admission Data Admit Date/Time: 05/01/21 11:42 Attending Provider: Zandra West Admit Provider: Zandra West Primary Care Provider: Elif Falcon Other Providers: Zandra West ; Izzy Hughes Other Interventions: Discharge Summary Assessment (RN) Last Done: 05/02/21 15:53
--- NOTE | 2021-05-03 09:18 | Communication Note ---
Date of Service: May 03, 2021 2D echo : done this admission , shows severe aortic stenosis with severe calcification of bicuspid aortic valve pt needs to follow up with her cardiology Dr Hayden for further follow up pt and her updated over phone Zandra West MD
--- NOTE | 2021-05-06 10:01 | Coding Query ---
CODING QUERY To promote full compliance with coding requirements relating to patient care, provider participation is requested in all cases of civil engineering intern uncertainty. Please assist us with the question(s) below: Coding Question(s): Encephalopathy is documented in the record with the Discharge Summary documenting, under Hospital Course, "Appreciate input from neurology, possible acute symptoms onset of confusion due to encephalopathy in a combination of acute renal failure, recent steroid treatment of her dehydration", and, under the Principal Diagnosis area, "Acute confusion secondary to acute renal failure: Dehydration: Resolved", and the Neurology Consultation documents, " Encephalopathy acute" and, "Suspect the patient has confusion/encephalopathy related to hypotension acute renal failure possibly related to hypoxemia", and the 05/02 Neurology PN documents, "Confusional episode, probably toxic metabolic related to hypotension", and the Communication Note on 05/02/21 documents, "was admitted with acute confusion which was due to metabolic and colopathy", and the 05/02 PN by attending documents, "Patient is asked not to take higher dose of prednisone 20 mg daily(possible causing the confusion?)". Please Specify below, in your clinical opinion, regarding the Encephalopathy. Please check all that apply. (x ) Metabolic Encephalopathy due to Acute Renal Failure and Dehydration ( x ) Toxic Metabolic Encephalopathy due to Steroid ( ) Encephalopathy, Unspecified, due to Acute Renal Failure and Dehydration ( ) Encephalopathy, Other: Please Specify ( ) No Encephalopathy, only Acute Confusion Physician's Response(s): Thank you Reyna Saenz Principal Diagnosis: "that condition established after study, to be chiefly responsible for occasioning the admission of the patient to the hospital for care." Co-Existing Principal Diagnosis: "when two or more diagnoses equally meet the criteria for principal diagnosis as determined by the circumstances of admission, diagnostic work up, and/or therapy provided, and the Alphabetic Index, Tabular List, or another coding guideline does not provide sequencing direction, any one of the diagnoses may be sequenced first." "When the physician has documented what appears to be a current diagnosis in the body of the record, but has not included the diagnosis in the final diagnostic statement, the physician should be asked whether the diagnosis should be added." (Source Coding [facility] 2 QTR90. p3-4) MTDD
== END 2021-05-02 17:20 | disposition home or self-care (01) | DRG 682 ==
LOC: ED 08:03 → 2N 11:42

== ENCOUNTER 2021-08-25 11:00 | Observation (INO) ==
--- NOTE | 2021-08-25 11:22 | Emergency Department Note ---
Impression & Plan Hypoxia, Pneumonia, Weakness, Confusion, Leukocytosis ED Provider Note NAME: JANIA PERSON AGE: 71 SEX: F : 1950 ARRIVES VIA: Walk-In INFORMANT: [Patient] ED PROVIDER(S): [Tomás Faria MD] CHIEF COMPLAINT: Illness HISTORY OF PRESENT ILLNESS: The patient is a 71-year-old female who presents to the ER with several complaints. The patient states that she had pneumonia several weeks ago and was on an inhaler and antibiotics. She got a bit better but still has been coughing. She has been coughing for weeks. The patient is having a hard time sleeping because of the cough. Last night, she took some DayQuil and, this morning was quite dizzy. She has been dizzy from DayQuil before. In addition though, she was shaky and a bit sweaty and she seemed to have some difficulty with concentration. Her son who is a medical file clerk was very concerned and s ent her to the ED for evaluation. Since her initial spell this morning, things have improved. She is thinking better, she is less shaky, she is less dizzy. Patient has had no chest pain. She has not really had shortness of breath. No fever. No urinary complaints. She has no history of stroke but has had several heart attacks. REVIEW OF SYSTEMS: See HPI for pertinent positives and negatives. A total of ten systems were reviewed and were otherwise negative. PMHx/PSHx: See Below SOCIAL HISTORY: See Below. PHYSICAL EXAM: GENERAL: Patient is in no acute distress. HEENT: No acute trauma, normocephalic atraumatic, mucous membranes moist, no nasal congestion, no scleral icterus. NECK: No stridor, no adenopathy, no meningismus, trachea is midline. LUNGS: Clear to auscultation bilaterally, no wheeze, no rhonchi, breath sounds equal. Breath sounds are diminished bilaterally. HEART: 3/6 systolic murmur, regular rate and rhythm. ABDOMEN: Soft, nontender, bowel sounds positive, no hernias, no peritonitis. EXTREMITIES: No cyanosis, mild bilateral pedal edema, full range of motion of all the joints without pain or difficulty, no signs for acute trauma. NEUROLOGIC: Oriented x 3, no acute motor or sensory deficits, no focal weakness. No speech slur. SKIN: No rash, no jaundice, no diaphoresis. DIFFERENTIAL DIAGNOSIS: Infection, dehydration, metabolic abnormality, hypo/hyperglycemia, UTI, pneumonia, electrolyte disturbance, anemia, hypoxia, cardiac sources, intracerebral event, toxicologic issues, stroke, TIA, as well as other pathologies. EMERGENCY DEPARTMENT COURSE/PROCEDURES: ECG: Indication was weakness. The ECG shows a normal sinus rhythm with a rate of 78. There is an old inferior infarct. No ST elevation, no PVCs. The QTc is 446. Continuous Cardiac Monitoring: An order was placed for continuous cardiac monitoring. The monitor shows a rate of 71 with normal sinus rhythm. MEDICAL DECISION MAKING: There is a moderate leukocytosis at 18,000, this could be consistent with infection. There is no anemia. Platelet count mildly elevated. There is some renal insufficiency with a creatinine of 1.39. The creatinine has been elevated before. There is no significant liver enzyme elevation. The patient appears to be in a euthyroid state. Lactic acid level is not elevated making sepsis less likely. ECG shows a sinus rhythm, no acute ischemia. Cardiac enzyme testing x1 is not consistent with acute cardiac injury. Covid test is negative. Influenza test is negative. Chest film does show pneumonia. Brain CT shows no acute bleed or mass-effect. On exam, the patient was shaky and appeared weak. Her O2 saturation dropped to the upper 80s with ambulation. The patient was given IV saline, 500 cc. She was given IV ceftriaxone and IV doxycycline. She was given a DuoNeb. The patient has pneumonia. I suspect this led to some hypoxia which then led to her confusion and shakiness today. I do think a hospital stay is warranted. Jose good already has failed outpatient oral antibiotics. I did speak with the patient and her , I spoke with case management. The on-call hospitalist was consulted. Past Med/Surg History Medical History Anemia Aortic stenosis Moderate aortic stenosis present (MG 18.6, VERONIQUE 0.88) per 05/29/19 DSE; possible bicuspid AV per 12/2018* CAD (coronary artery disease) (07/19/14) Total of cardiac stents x 5 (most recent 2014) Carotid artery stenosis Chronic deep vein thrombosis (DVT) Per records dating back to 2015; patient denies Chronic kidney disease Diabetes IDDM Diffuse myofascial pain syndrome Fibromyalgia GERD (gastroesophageal reflux disease) controlled Hiatal hernia History of difficult intubation Hx glidescope intubation: 08/24/16: Left TKA: Glidescope #3, ETT 7.0 + PNB at [facility] Hx of sciatica Low back pain b/l LE radiculopathy Myocardial Infarction X3- 2006/ Osteoarthritis of left knee Surgical History History of appendectomy History of cardiac cath History of lumbar fusion History of total knee arthroplasty Family History Other No significant family history Social History Smoking Status: Never smoker Tobacco Type: Cigarettes Second Hand Exposure: No; Hx Alcohol Use: No Hx Substance Use: No Preferred Language: Sinhala Communication Ability: Effective Visual Impairment: No Limitations Hearing Ability: Normal 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 Required: No Beliefs That Will Affect Care: None marital status: Current Living Situation: Spouse Feels Safe at Home: Yes Assistive Devices: None Allergies Allergies Allergy/AdvReac Type Severity Reaction Status Date / Time niacin Allergy Severe HOT/BURNING Verified 08/25/21 12:45 FEELING Iodinated Contrast Media Allergy Intermediate ITCHING Verified 08/25/21 12:45 WITH IVP DYE sitagliptin AdvReac Severe PANCREATITI Verified 08/25/21 12:45 S Home Meds Home Medications Medication Instructions Recorded Confirmed amlodipine 5 mg tablet 5 mg PO QAM 08/22/18 08/25/21 famotidine 20 mg tablet 20 mg PO QPM 08/22/18 08/25/21 furosemide 20 mg tablet 20 mg PO 3XWK 08/22/18 08/25/21 furosemide 20 mg tablet 20 mg PO QAM 08/22/18 08/25/21 lisinopril 40 mg tablet 40 mg PO QAM 08/22/18 08/25/21 metoprolol succinate 100 mg 100 mg PO QPM 08/22/18 08/25/21 tablet,extended release 24 hr nitroglycerin 0.4 mg sublingual 0.4 mg SUBLINGUAL UD PRN 08/22/18 08/25/21 tablet omeprazole 40 mg capsule,delayed 40 mg PO DAILYBB 08/22/18 08/25/21 release prasugrel 10 mg tablet 10 mg PO QAM 08/22/18 08/25/21 duloxetine 60 mg capsule,delayed 60 mg PO QAM 11/01/18 08/25/21 release (Cymbalta) insulin NPH isoph U-100 human 100 40 unit SUBCUT BIDM 04/05/19 08/25/21 unit/mL subcutaneous suspension (Novolin N NPH U-100 Insulin isophane) insulin aspart U-100 100 unit/mL 1 sliding scale dose SUBCUT 05/30/19 08/25/21 subcutaneous solution (Novolog USEASDIRECTD PRN U-100 Insulin aspart) gabapentin 300 mg capsule 300 mg PO QAM 11/22/19 08/25/21 (Neurontin) aspirin 81 mg tablet,delayed 81 mg PO QAM 09/27/20 08/25/21 release tramadol 100 mg tablet,extended 100 mg PO BID 09/27/20 08/25/21 release 24 hr tramadol 50 mg tablet 50 mg PO Q6 PRN 09/27/20 08/25/21 rosuvastatin 40 mg tablet 40 mg PO PM 04/16/21 08/25/21 estradiol 1 applic VAGINAL DAILY PRN 05/01/21 08/25/21 gabapentin 300 mg capsule 600 mg PO QPM 05/01/21 08/25/21 albuterol sulfate 90 mcg/actuation 2 puff INHALATION Q4 PRN 08/25/21 08/25/21 aerosol inhaler diclofenac sodium 1 % topical gel 2 g TOPICAL QID PRN 08/25/21 08/25/21 Previous Rx's Medication Instructions Recorded oxycodone 5 mg tablet 5 mg PO Q4H PRN #12 tab 04/07/21 prednisone 5 mg tablet 5 mg PO DAILY #7 tab 05/02/21 Results & Data (ED) Vital Signs Vital Signs - 24 hr 08/25/21 11:03 08/25/21 11:17 08/25/21 11:37 Temperature 37.4 C Temperature Source Temporal Artery Scan Oral Pulse Rate 71 77 Pulse Rate [Exercises] Pulse Rate [Recovery] Respiratory Rate 18 16 Respiratory Rate [Exercises] Respiratory Rate [Recovery] Blood Pressure 154/82 H Blood Pressure Mean 106 Pulse Oximetry 92 Pulse Oximetry [Exercises] Pulse Oximetry [Recovery] Oxygen Delivery Method Sepsis Recent Fever Within 48 Hours No Sepsis New/Unexplained Change in Mental Status No Sepsis Action Taken by Nursing No Action Required 08/25/21 11:43 08/25/21 12:00 08/25/21 12:30 Temperature Temperature Source Pulse Rate 73 73 Pulse Rate [Exercises] Pulse Rate [Recovery] Respiratory Rate 21 20 Respiratory Rate [Exercises] Respiratory Rate [Recovery] Blood Pressure 132/64 Blood Pressure Mean 86 Pulse Oximetry Pulse Oximetry [Exercises] Pulse Oximetry [Recovery] Oxygen Delivery Method Room Air Sepsis Recent Fever Within 48 Hours Sepsis New/Unexplained Change in Mental Status Sepsis Action Taken by Nursing 08/25/21 14:58 Temperature Temperature Source Pulse Rate Pulse Rate [Exercises] 79 Pulse Rate [Recovery] 77 Respiratory Rate Respiratory Rate [Exercises] 20 Respiratory Rate [Recovery] 20 Blood Pressure Blood Pressure Mean Pulse Oximetry Pulse Oximetry [Exercises] 90 Pulse Oximetry [Recovery] 89 L Oxygen Delivery Method Room Air Sepsis Recent Fever Within 48 Hours Sepsis New/Unexplained Change in Mental Status Sepsis Action Taken by Snf Medications Current Medication List: was personally reviewed by me Laboratory Data Attestation: I reviewed the patient's lab results. Result diagrams: 08/25/21 11:40 08/25/21 11:40 Lab Results 08/25/21 08/25/21 08/25/21 Range/Units 11:40 11:40 12:49 WBC 18.41 H (4.8-10.8) K/uL RBC 4.61 (4.2-5.4) M/uL Hgb 12.6 (12.0-16.0) g/dL Hct 40.2 (37-47) % MCV 87.2 (80-100) fL MCH 27.3 (25-34) pg MCHC 31.3 L (32-36) g/dL RDW Std Deviation 50.4 H (36.4-46.3) fL RDW Coeff of Jovana 15.7 H (11.5-14.5) % Plt Count 409 H (130-400) K/uL MPV 9.3 (7.4-10.4) fL Immature Gran % (Auto) 0.4 % Neut % (Auto) 81.8 % Lymph % (Auto) 10.7 % Miner % (Auto) 6.4 % Eos % (Auto) 0.5 % Baso % (Auto) 0.2 % Neut # (Auto) 15.05 H (1.4-6.5) K/uL Lymph # (Auto) 1.97 (1.2-3.4) K/uL Miner # (Auto) 1.17 H (0.11-0.59) K/uL Eos # (Auto) 0.10 (0-0.5) K/uL Baso # (Auto) 0.04 (0-0.2) K/uL Immature Gran # (Auto) 0.08 H (0.00-0.02) K/uL Sodium 137 (136-145) mmol/L Potassium 4.1 (3.5-5.1) mmol/L Chloride 106 (98-107) mmol/L Carbon Dioxide 24 (21-32) mmol/L Anion Gap 7.0 (3-11) BUN 27 H (7-18) mg/dl Creatinine 1.39 H (0.6-1.2) mg/dl Est Cr Clr Drug Dosing 42.2 ml/min Est GFR ( Amer) 44.4 ml/min Est GFR (Non-Af Amer) 38.3 ml/min BUN/Creatinine Ratio 19.6 (10-20) Glucose 159 H (70-99) mg/dl Lactate 1.3 (0.4-2.0) mmol/L Calcium 8.7 (8.5-10.1) mg/dl Magnesium 2.1 (1.8-2.4) mg/dl Total Bilirubin 0.8 (0.2-1) mg/dl AST 10 L (15-37) U/L ALT 17 (12-78) U/L Alkaline Phosphatase 68 (45-117) U/L Troponin I < 0.015 (0-0.045) ng/ml Total Protein 7.5 (6.4-8.2) gm/dl Albumin 3.1 L (3.4-5.0) gm/dl Globulin 4.4 H (2.5-4.0) gm/dl Albumin/Globulin Ratio 0.7 L (0.9-2) TSH 0.930 (0.300-4.500) uIu/ml COVID-19 Eval Order SARS-CoV-2 (PCR) (Negative) Influ A Molecular Assay (Negative) Influ B Molecular Assay (Negative) 08/25/21 08/25/2108/25/21 Range/Units 12:50 12:50 12:50 WBC (4.8-10.8) K/uL RBC (4.2-5.4) M/uL Hgb (12.0-16.0) g/dL Hct (37-47) % MCV (80-100) fL MCH (25-34) pg MCHC (32-36) g/dL RDW Std Deviation (36.4-46.3) fL RDW Coeff of Jovana (11.5-14.5) % Plt Count (130-400) K/uL MPV (7.4-10.4) fL Immature Gran % (Auto) % Neut % (Auto) % Lymph % (Auto) % Miner % (Auto) % Eos % (Auto) % Baso % (Auto) % Neut # (Auto) (1.4-6.5) K/uL Lymph # (Auto) (1.2-3.4) K/uL Miner # (Auto) (0.11-0.59) K/uL Eos # (Auto) (0-0.5) K/uL Baso # (Auto) (0-0.2) K/uL Immature Gran # (Auto) (0.00-0.02) K/uL Sodium (136-145) mmol/L Potassium (3.5-5.1) mmol/L Chloride (98-107) mmol/L Carbon Dioxide (21-32) mmol/L Anion Gap (3-11) BUN (7-18) mg/dl Creatinine (0.6-1.2) mg/dl Est Cr Clr Drug Dosing ml/min Est GFR ( Amer) ml/min Est GFR (Non-Af Amer) ml/min BUN/Creatinine Ratio (10-20) Glucose (70-99) mg/dl Lactate (0.4-2.0) mmol/L Calcium (8.5-10.1) mg/dl Magnesium (1.8-2.4) mg/dl Total Bilirubin (0.2-1) mg/dl AST (15-37) U/L ALT (12-78) U/L Alkaline Phosphatase (45-117) U/L Troponin I (0-0.045) ng/ml Total Protein (6.4-8.2) gm/dl Albumin (3.4-5.0) gm/dl Globulin (2.5-4.0) gm/dl Albumin/Globulin Ratio (0.9-2) TSH (0.300-4.500) uIu/ml COVID-19 Eval Order Covid19 at [facility] SARS-CoV-2 (PCR) NEGATIVE (Negative) Influ A Molecular Assay Negative (Negative) Influ B Molecular Assay Negative (Negative) Administered Medications Discontinued Medications Albuterol (Albut/Ipratrop 3mg/0.5mg Neb 3 Ml Vial) 3 ml NEB NOW STA Stop: 08/25/21 13:52 Last Admin: 08/25/21 14:33 Dose: 3 ml Documented by: [id number] Sodium Chloride (Nss) 500 mls @ 999 mls/hr IV .Q31M JUAN C Stop: 08/25/21 12:00 Last Infusion: 08/25/21 12:24 Dose: 0 mls/hr Documented by: [id number] Admin: 08/25/21 11:53 Dose: 999 mls/hr Documented by: [id number] Ceftriaxone Sodium (Rocephin) 2,000 mg in 70 mls @ 140 mls/hr IV NOW STA Stop: 08/25/21 13:10 Last Infusion: 08/25/21 14:00 Dose: 0 mls/hr Documented by: [id number] Admin: 08/25/21 13:30 Dose: 140 mls/hr Documented by: [id number] Imaging Data Radiologist's Impression: Chest X-Ray 08/25/21 11:17 SINGLE VIEW CHEST CLINICAL HISTORY: Generalized weakness. FINDINGS: An AP, portable, upright chest radiograph is compared to study dated 05/01/2021. Heart is enlarged noting atherosclerotic calcification of the thoracic aorta. There are bilateral airspace opacities. No large pleural effusion or pneumothorax is seen. The skeletal structures are osteopenic. The bony thorax is grossly intact. IMPRESSION: 1. There are bilateral airspace opacities. This could represent pulmonary edema and/or an infectious/inflammatory pneumonitis. Clinical correlation will be required and radiographic follow-up to resolution is recommended. 2. Cardiomegaly. ACT 112: Negative or not required by law. Electronically signed by: Tomás Askew M.D. 08/25/2021 12:[address] 08/25/21 11:17 CT head/brain wo con CLINICAL HISTORY: weakness, shakey Technique: Contiguous axial CT images of the head were acquired from the base of the skull to the vertex without intravenous contrast administration. Images wer e viewed in brain, subdural and bone windows. Automated dose lowering techniques and/or adjustment according to patient size were utilized for this exam. Comparison: Comparison is made to CT head 05/01/2021 Findings: Areas of decreased attenuation are present in the periventricular and subcortical white matter bilaterally consistent with small vessel ischemic disease. Generalized cerebral atrophy with commensurate enlargement of the ventricles, sulci, and cisterns is also present. There is no acute intracranial hemorrhage or evidence of acute territorial infarction. No shift of the midline structures, mass effect, or extra-axial abnormalities are shown. Atherosclerotic calcifications are present in the intracranial segments of the internal carotid arteries. Imaged portions of the paranasal sinuses and mastoid air cells are clear. The orbits appear normal. There are no acute fractures of the calvaria or scalp swelling. Impression: No acute intracranial hemorrhage, no evidence of acute territorial infarction or other acute intracranial disease process. ACT 112: Negative or not required by law. Electronically signed by: Shaw Bolaños M.D. 08/25/2021 12:20 PM Discharge Plan Visit Data Chief Complaint: Illness Stated Complaint: SHAKY,CONFUSED,SWEATY,COUGH ED Provider: Tomás Faria Discharge Problem: Hypoxia, Pneumonia, Weakness, Confusion, Leukocytosis Patient Disposition: Admitted As Inpatient Condition: Fair Forms Stand Alone Forms: [facility] Prescriptions Prescriptions: No Action duloxetine [Cymbalta] 60 mg capsule,delayed release(DR/EC) 60 mg PO QAM RF: 0 metoprolol succinate 100 mg tablet extended release 24 hr 100 mg PO QPM RF: 0 amlodipine 5 mg tablet 5 mg PO QAM RF: 0 omeprazole 40 mg capsule,delayed release(DR/EC) 40 mg PO DAILYBB RF: 0 famotidine 20 mg tablet 20 mg PO QPM RF: 0 nitroglycerin 0.4 mg tablet, sublingual 0.4 mg Sublingual UD PRN (Reason: Chest Pain) RF: 0 furosemide 20 mg tablet 20 mg PO 3XWK RF: 0 furosemide 20 mg tablet 20 mg PO QAM RF: 0 lisinopril 40 mg tablet 40 mg PO QAM RF: 0 prasugrel 10 mg tablet 10 mg PO QAM RF: 0 insulin aspart U-100 [Novolog U-100 Insulin aspart] 100 unit/mL Solution 1 sliding scale dose SUBCUT USEASDIRECTD PRN (Reason: HIGH BLOOD SUGAR) RF: 0 gabapentin [Neurontin] 300 mg capsule 300 mg PO QAM RF: 0 Novolin N NPH U-100 Insulin 100 unit/mL suspension 40 unit subcut BIDM RF: 0 aspirin 81 mg Tablet,Delayed Release (Dr/Ec) 81 mg PO QAM RF: 0 tramadol 50 mg tablet 50 mg PO Q6 PRN (Reason: Pain) RF: 0 tramadol 100 mg tablet extended release 24 hr 100 mg PO BID RF: 0 oxycodone 5 mg tablet 5 mg PO Q4H PRN (Reason: pain) Qty: 12 RF: 0 rosuvastatin 40 mg tablet 40 mg PO PM RF: 0 gabapentin 300 mg Capsule 600 mg PO QPM RF: 0 estradiol 0.01 % (0.1 mg/gram) cream 1 applic VAGINAL DAILY PRN (Reason: menopause) RF: 0 prednisone 5 mg tablet 5 mg PO DAILY Qty: 7 RF: 0 albuterol sulfate 90 mcg/actuation HFA aerosol inhaler 2 puff INHALATION Q4 PRN (Reason: Bronchospasm) RF: 0 diclofenac sodium 1 % Gel 2 g TOPICAL QID PRN (Reason: Pain) RF: 0 Referrals Referrals: Elif Falcon MD [Primary Care Provider] -
[2021-08-25] MEDS ORDERED: SODIUM CHLORIDE 0.9% 500 ML IV SCH (11:30)
[2021-08-25 11:50] LABS: Basophils # (auto) 0.04 K/uL (0-0.2); Basophils % (auto) 0.2 %; Eosinophils % (auto) 0.5 %; Hematocrit (blood only) 40.2 % (37-47); Hemoglobin 12.6 g/dL (12.0-16.0); Immature Granulocytes # (auto) 0.08 K/uL (0.00-0.02); Immature Granulocytes % (auto) 0.4 %; Lymphocytes # (auto) 1.97 K/uL (1.2-3.4); Lymphocytes % (auto) 10.7 %; Mean Corpuscular Hemoglobin 27.3 pg (25-34); Mean Corpuscular Hgb Conc 31.3 g/dL (32-36); Mean Corpuscular Volume 87.2 fL (80-100); Mean Platelet Volume 9.3 fL (7.4-10.4); Monocytes # (auto) 1.17 K/uL (0.11-0.59); Monocytes % (auto) 6.4 %; Neutrophils # (auto) 15.05 K/uL (1.4-6.5); Neutrophils % (auto) 81.8 %; Platelet Count 409 K/uL (130-400); RDW Coefficient of Variation 15.7 % (11.5-14.5); RDW Standard Deviation 50.4 fL (36.4-46.3); Red Blood Count 4.61 M/uL (4.2-5.4); White Blood Count 18.41 K/uL (4.8-10.8)
[2021-08-25 12:08] LABS: Alanine Aminotransferase 17 U/L (12-78); Albumin Level 3.1 gm/dl (3.4-5.0); Aspartate Aminotransferase 10 U/L (15-37); BUN Creatinine Ratio 19.6 (10-20); Blood Urea Nitrogen 27 mg/dl (7-18); Calcium 8.7 mg/dl (8.5-10.1); Carbon Dioxide 24 mmol/L (21-32); Chloride 106 mmol/L (98-107); Creatinine Clr Calc Pharmacy 42.2 ml/min; Est GFR (African American) 44.4 ml/min; Est GFR (Non-African American) 38.3 ml/min; Glucose 159 mg/dl (70-99); Magnesium 2.1 mg/dl (1.8-2.4); Potassium 4.1 mmol/L (3.5-5.1); Sodium 137 mmol/L (136-145)
[2021-08-25 12:19] LABS: Albumin Globulin Ratio 0.7 (0.9-2); Alkaline Phosphatase 68 U/L (45-117); Bilirubin,Total 0.8 mg/dl (0.2-1); Globulin 4.4 gm/dl (2.5-4.0); Total Protein 7.5 gm/dl (6.4-8.2); Troponin I < 0.015 ng/ml (0-0.045)
--- NOTE | 2021-08-25 12:22 | CT Scan Report ---
CT head/brain wo con CLINICAL HISTORY: weakness, shakey Technique: Contiguous axial CT images of the head were acquired from the base of the skull to the eda polina without intravenous contrast administration. Images were viewed in brain, subdural and bone windo ws. Automated dose lowering techniques and/or adjustment according to patient size were utilized for this exam. Comparison: Comparison is made to CT head 05/01/2021 Findings: Areas of decreased attenuation are present in the periventricular and subcortical white matter bilate rally consistent with small vessel ischemic disease. Generalized cerebral atrophy with commensurate e nlargement of the ventricles, sulci, and cisterns is also present. There is no acute intracranial hem orrhage or evidence of acute territorial infarction. No shift of the midline structures, mass effect, or extra-axial abnormalities are shown. Atherosclerotic calcifications are present in the intracran ial segments of the internal carotid arteries. Imaged portions of the paranasal sinuses and mastoid air cells are clear. The orbits appear normal. There are no acute fractures of the calvaria or scalp swelling. Impression: No acute intracranial hemorrhage, no evidence of acute territorial infarction or other acute intracra nial disease process. ACT 112: Negative or not required by law. Electronically signed by: Shaw Bolaños M.D. 08/25/2021 12:20 PM
--- NOTE | 2021-08-25 12:27 | Electrocardiogram Report ---
Test Reason : Blood Pressure : / mmHG Vent. Rate : 078 BPM Atrial Rate : 078 BPM P-R Int : 142 ms QRS Dur : 096 ms QT Int : 392 ms P-R-T Axes : 009 019 030 degrees QTc Int : 446 ms Normal sinus rhythm Normal ECG When compared with ECG of 01-MAY-2021 08:20, Criteria for Inferior infarct are no longer Present T wave inversion no longer evident in Inferior leads Confirmed by Blake Deleon ([id number]) on 08/25/2021 12:27:27 PM Referred By: REFERRED SELF Confirmed By:Blake Deleon
--- NOTE | 2021-08-25 12:29 | XRay Report ---
SINGLE VIEW CHEST CLINICAL HISTORY: Generalized weakness. FINDINGS: An AP, portable, upright chest radiograph is compared to study dated 05/01/2021. Heart is en larged noting atherosclerotic calcification of the thoracic aorta. There are bilateral airspace opaci ties. No large pleural effusion or pneumothorax is seen. The skeletal structures are osteopenic. The bony thorax is grossly intact. IMPRESSION: 1. There are bilateral airspace opacities. This could represent pulmonary edema and/or an infectious/ inflammatory pneumonitis. Clinical correlation will be required and radiographic follow-up to resolut ion is recommended. 2. Cardiomegaly. ACT 112: Negative or not required by law. Electronically signed by: Tomás Askew M.D. 08/25/2021 12:27 PM
[2021-08-25] MEDS ORDERED: cefTRIAXone SODIUM 2,000 MG/70 ML BAG IV STA (12:41)
[2021-08-25 13:26] LABS: Influenza A virus by PCR Negative (Negative); Influenza B virus by PCR Negative (Negative)
[2021-08-25] MEDS ORDERED: ALBUT/IPRATROP 3MG/0.5MG NEB 3 ML VIAL NEB STA (13:51)
[2021-08-25] MEDS ORDERED: DOXYCYCLINE HYCLATE 100 MG in DEXTROSE 5% 100 ML IV STA (15:22)
--- NOTE | 2021-08-25 16:37 | History & Physical Report ---
Date of Service August 25, 2021 Assessment & Plan (1) Pneumonia: Plan: bilateral pulmonary airspace opacities on CXR (2) Hypoxia: Plan: With ambulation (3) Acute kidney injury superimposed on CKD: Plan: Baseline creatinine 1.2 (4) Polyarthritis of multiple sites: (5) PVD (peripheral vascular disease): (6) GERD (gastroesophageal reflux disease): (7) CAD (coronary artery disease): (8) Diabetes: (9) Low back pain: Plan: Pt treated for pneumonia 3-4 weeks ago but incomplete resolution of her symptoms. Originally treated with azithromycin. - Continue IV ceftriaxone and doxycycline started in the ED - Check sputum culture, blood cultures - Due to SAM, will give IVF x 1L - Labs in AM - Lantus, novolog sliding scale. A1c on 08/20/21 was 7.7 - Continue home meds as appropriate - Repeat ambulatory pulseox tomorrow if clinically improving - has not required O2 at rest but sats drop with ambulation - PRN nebs for chest tightness Pt seen and reviewed with attending physician, Dr. Olmstead. Plan of care discussed and as outlined above. DVT Prophylaxis: SCDs Code Status: Full Code Rogers Whatley PA-C History of Present Illness Chief Complaint: Shakiness and cough Primary Care Provider: Elif Falcon MD This is a 71 y/o female with a PMH of insulin-dependent diabetes, CKD3b, PVD, HTN, VINCE, CAD w/ hx AK, dyslipidemia, chronic systolic CHF, OA, and chronic pain who presents to the ED today with shakiness and mild confusion this morning. Pt reports that on Aug 04, she was diagnosed with pneumonia and treated with azithromycin (CXR same day showed bilateral pulmonary opacicities, COVID was negative). She overall improved from them other than a residual dry cough that is worse at night. Cough comes in episodes and is not productive, no hemoptysis. Last night, she took a "swallow" of Nyquil from the bottle to help with the cough. This morning, when she woke up, she felt very shaky and like her thinking was slow or cloudy. Her son, who is in MA school, was concerned at her confusion and that she may be having a stroke so he recommended pt come to the ED for evaluation, which she did. Currently, she is feeling very tired but her original symptoms have improved. She notes feeling very fatigued all day today, is frequently falling asleep. She notes ongoing issues with taking a deep breath since being ill last month. Also notes increased WILL the past several days. She has had mild LE edema for the past week or more. Persistent congestion in her upper chest, sinus pain. Appetite has been at baseline. Sugars running 160s-170s which pt reports is baseline for her. Allergies Allergy/AdvReac Type Severity Reaction Status Date / Time niacin Allergy Severe HOT/BURNING Verified 08/25/21 12:45 FEELING Iodinated Contrast Media Allergy Intermediate ITCHING Verified 08/25/21 12:45 WITH IVP DYE sitagliptin AdvReac Severe PANCREATITI Verified 08/25/21 12:45 S Home Medications Medication Instructions Recorded Confirmed Type amlodipine 5 mg tablet 5 mg PO QAM 08/22/18 08/25/21 History famotidine 20 mg tablet 20 mg PO QPM 08/22/18 08/25/21 History furosemide 20 mg tablet 20 mg PO UD 08/22/18 08/25/21 History metoprolol succinate 100 mg 100 mg PO QPM 08/22/18 08/25/21 History tablet,extended release 24 hr nitroglycerin 0.4 mg sublingual 0.4 mg SUBLINGUAL UD PRN 08/22/18 08/25/21 History tablet omeprazole 40 mg capsule,delayed 40 mg PO DAILYBB 08/22/18 08/25/21 History release prasugrel 10 mg tablet 10 mg PO QAM 08/22/18 08/25/21 History duloxetine 60 mg capsule,delayed 60 mg PO QAM 11/01/18 08/25/21 History release (Cymbalta) insulin NPH isoph U-100 human 100 40 unit SUBCUT BIDM 04/05/19 08/25/21 History unit/mL subcutaneous suspension (Novolin N NPH U-100 Insulin isophane) insulin aspart U-100 100 unit/mL 1 sliding scale dose SUBCUT 05/30/19 08/25/21 History subcutaneous solution (Novolog USEASDIRECTD PRN U-100 Insulin aspart) gabapentin 300 mg capsule 300 mg PO QAM 11/22/19 08/25/21 History (Neurontin) aspirin 81 mg tablet,delayed 81 mg PO QAM 09/27/20 08/25/21 History release tramadol 100 mg tablet,extended 100 mg PO BID 09/27/20 08/25/21 History release 24 hr tramadol 50 mg tablet 50 mg PO Q6 PRN 09/27/20 08/25/21 History oxycodone 5 mg tablet 5 mg PO Q4H PRN #12 tab 04/07/21 08/25/21 Rx rosuvastatin 40 mg tablet 40 mg PO PM 04/16/21 08/25/21 History gabapentin 300 mg capsule 600 mg PO QPM 05/01/21 08/25/21 History prednisone 5 mg tablet 5 mg PO DAILY #7 tab 05/02/21 08/25/21 Rx albuterol sulfate 90 mcg/actuation 2 puff INHALATION Q4 PRN 08/25/21 08/25/21 History aerosol inhaler diclofenac sodium 1 % topical gel 2 g TOPICAL QID PRN 08/25/21 08/25/21 History isosorbide mononitrate 30 mg 30 mg PO DAILY 08/25/21 08/25/21 History tablet,extended release 24 hr Past Med/Surg History Medical History Anemia Aortic stenosis Moderate aortic stenosis present (MG 18.6, VERONIQUE 0.88) per 05/29/19 DSE; possible bicuspid AV per 12/2018* CAD (coronary artery disease) (07/19/14) Total of cardiac stents x 5 (most recent 2014) Carotid artery stenosis Chronic deep vein thrombosis (DVT) Per records dating back to 2016; patient denies Chronic kidney disease Diabetes IDDM Diffuse myofascial pain syndrome Fibromyalgia GERD (gastroesophageal reflux disease) controlled Hiatal hernia History of difficult intubation Hx glidescope intubation: 08/24/16: Left TKA: Glidescope #3, ETT 7.0 + PNB at [facility] Hx of sciatica Low back pain b/l LE radiculopathy Myocardial Infarction X3- /2014 Osteoarthritis of left knee Surgical History History of appendectomy History of cardiac cath History of lumbar fusion History of total knee arthroplasty Family History Other No significant family history Social History Smoking Status: Former smoker Tobacco Type: Cigarettes Second Hand Exposure: No; Hx Alcohol Use: No Hx Substance Use: No Preferred Language: Danish Communication Ability: Effective Visual Impairment: No Limitations Hearing Ability: Normal Manufacturing Coordinator Required: No Beliefs That Will Affect Care: None marital status: Current Living Situation: Spouse Other Information That Helps Us Care for You: No Feels Safe at Home: Yes Assistive Devices: None Review of Systems Review of Systems: All systems reviewed & are unremarkable except as noted in HPI & below Constitutional: + fatigue; no fever, no chills, no sweats and no anorexia Eyes: no diplopia and no worsening vision Ear, Nose, Mouth, Throat: + sinus pain/pressure; no nasal congestion, no nasal discharge and no sore throat Respiratory: as per Subjective / HPI Cardiovascular: + edema; no chest pain, no palpitations, no lightheadedness and no syncope Gastrointestinal: no abdominal pain, no nausea, no vomiting, no diarrhea/loose stools and no blood in stools Genitourinary: no dysuria, no urinary frequency and no hematuria Musculoskeletal: + problem reported (chronic MSK pain) Integumentary: no rash and no skin ulcer Neurologic: no seizure-like activity, no dizziness and no headache(s) Psychiatric: no depression and no anxiety Physical Exam Constitutional: WD/WN, vitals as above no acute distress Eyes: + anicteric sclerae Neck: trachea midline Respiratory: no respiratory distress and no labored breathing Auscultation: + crackles (bilateral bases but right > left); no wheezes Cardiovascular: Rate/Rhythm: regular rate and regular rhythm Heart Sounds: + murmur Vessels: dorsalis pedis pulses present and radial pulses present Extremities: + pedal edema (1+) Gastrointestinal (Abdomen): Inspection/Auscultation: normal bowel sounds; abdomen not distended Percussion/Palpation: abdomen soft; abdomen nontender Musculoskeletal: Head/Neck/Chest: normocephalic, head atraumatic and neck supple Skin: no rashes and no jaundice Neurologic: moves all extremities; no focal motor deficits and not confused Psychiatric: A+Ox3, euthymic affect Results & Data Results & Data ([facility]) Vital Signs (Past 12 Hours) Vital Signs Temp Pulse Pulse Pulse Resp Resp Resp 08/25/21 14:58 79 77 20 20 08/25/21 12:30 73 20 08/25/21 12:00 73 21 08/25/21 11:37 77 16 08/25/21 11:03 37.4 C 71 18 BP Pulse Ox Pulse Ox Pulse Ox 08/25/21 14:58 90 89 L 08/25/21 12:30 132/64 08/25/21 12:00 08/25/21 11:37 08/25/21 11:03 154/82 H 92 Laboratory Results Laboratory Results - last 24 hr 08/25/21 08/25/21 08/25/21 11:40 11:40 12:49 WBC 18.41 H RBC 4.61 Hgb 12.6 Hct 40.2 MCV 87.2 MCH 27.3 MCHC 31.3 L RDW Std Deviation 50.4 H RDW Coeff of Jovana 15.7 H Plt Count 409 H MPV 9.3 Immature Gran % (Auto) 0.4 Neut % (Auto) 81.8 Lymph % (Auto) 10.7 [place] % (Auto) 6.4 Eos % (Auto) 0.5 Baso % (Auto) 0.2 Neut # (Auto) 15.05 H Lymph # (Auto) 1.97 [place] # (Auto) 1.17 H Eos # (Auto) 0.10 Baso # (Auto) 0.04 Immature Gran # (Auto) 0.08 H Sodium 137 Potassium 4.1 Chloride 106 Carbon Dioxide 24 Anion Gap 7.0 BUN 27 H Creatinine 1.39 H Est Cr Clr Drug Dosing 42.2 Est GFR ( Amer) 44.4 Est GFR (Non-Af Amer) 38.3 BUN/Creatinine Ratio 19.6 Glucose 159 H Lactate 1.3 Calcium 8.7 Magnesium 2.1 Total Bilirubin 0.8 AST 10 L ALT 17 Alkaline Phosphatase 68 Troponin I < 0.015 Total Protein 7.5 Albumin 3.1 L Globulin 4.4 H Albumin/Globulin Ratio 0.7 L TSH 0.930 COVID-19 Eval Order SARS-CoV-2 (PCR) Influ A Molecular Assay Influ B Molecular Assay 08/25/21 08/25/21 08/25/21 12:50 12:50 12:50 WBC RBC Hgb Hct MCV MCH MCHC RDW Std Deviation RDW Coeff of Jovana Plt Count MPV Immature Gran % (Auto) Neut % (Auto) Lymph % (Auto) [place] % (Auto) Eos % (Auto) Baso % (Auto) Neut # (Auto) Lymph # (Auto) [place] # (Auto) Eos # (Auto) Baso # (Auto) Immature Gran # (Auto) Sodium Potassium Chloride Carbon Dioxide Anion Gap BUN Creatinine Est Cr Clr Drug Dosing Est GFR ( Amer) Est GFR (Non-Af Amer) BUN/Creatinine Ratio Glucose Lactate Calcium Magnesium Total Bilirubin AST ALT Alkaline Phosphatase Troponin I Total Protein Albumin Globulin Albumin/Globulin Ratio TSH COVID-19 Eval Order Covid19 at [facility] SARS-CoV-2 (PCR) NEGATIVE Influ A Molecular Assay Negative Influ B Molecular Assay Negative Diagnostic Findings CT Head 08/25/21 - Impression: No acute intracranial hemorrhage, no evidence of acute territorial infarction or other acute intracranial disease process. Chest X-ray 08/25/21 - IMPRESSION: 1. There are bilateral airspace opacities. This could represent pulmonary edema and/or an infectious/inflammatory pneumonitis. Clinical correlation will be required and radiographic follow-up to resolution is recommended. 2. Cardiomegaly. Medications Administered Doxycycline Hyclate 100 mg/ (Dextrose) 110 mls @ 50 mls/hr IV NOW STA Stop: 08/25/21 17:33 Last Admin: 08/25/21 15:46 Dose: 50 mls/hr Documented by: [id number] Discontinued Medications Albuterol (Albut/Ipratrop 3mg/0.5mg Neb 3 Ml Vial) 3 ml NEB NOW STA Stop: 08/25/21 13:52 Last Admin: 08/25/21 14:33 Dose: 3 ml Documented by: [id number] Sodium Chloride (Nss) 500 mls @ 999 mls/hr IV .Q31M JUAN C Stop: 08/25/21 12:00 Last Infusion: 08/25/21 12:24 Dose: 0 mls/hr Documented by: [id number] Admin: 08/25/21 11:53 Dose: 999 mls/hr Documented by: [id number] Ceftriaxone Sodium (Rocephin) 2,000 mg in 70 mls @ 140 mls/hr IV NOW STA Stop: 08/25/21 13:10 Last Infusion: 08/25/21 14:00 Dose: 0 mls/hr Documented by: [id number] Admin: 08/25/21 13:30 Dose: 140 mls/hr Documented by: [id number] Supervising Physician Co-Signing Physician Notes Attending Addendum: care coordinated with LYLE Whatley please refer to her notes for full details, I agree with her notes patient seen and examined, records reviewed by myself as well on exam, patient sitting up in bed, comfortable, about to have dinner Comfortable, not in distress, very pleasant States she feels improved compared to admission Has dry cough, chest congestion, dyspnea with ambulation No active chest pain, palpitations, dizziness No fevers or chills were admitted no other symptoms VS noted and reviewed oriented x3, not in distress, speaks in sentences with no effort nor accessory muscle use normal rate, regular rhythm, no murmurs Mild rhonchi bilateral bases, no wheezing, good air entry bilaterally non distended, soft, nontender no bipedal edema, erythema, warmth no neuro deficits WBC 18.4 Hg 12.6 Crea 1.3 Chest x-ray: Bilateral infiltrates ASSESSMENT AND PLAN Bilateral pneumonia Chronic prednisone use Does not meet criteria for sepsis Follow-up sputum and blood cultures Ceftriaxone plus doxycycline IV Mucinex other diagnoses and plan of care as per LYLE Whatley's notes Alfonzo Olmstead MD (1) Low back pain Back pain laterality: left Chronicity: acute Sciatica presence: without sciatica Qualified Code(s): M54.5 - Low back pain (2) Pneumonia Laterality: bilateral Lung location: unspecified part of lung Pneumonia type: due to unspecified organism Qualified Code(s): J18.9 - Pneumonia, unspecified organism
[2021-08-25] MEDS ORDERED: traMADol HCL 50 MG TABLET PO PRN ×2 (16:52→19:42)
[2021-08-25] MEDS ORDERED: NITROGLYCERIN SL 0.4 MG/TAB TAB SL PRN (18:09)
[2021-08-25] MEDS ORDERED: CARBOHYDRATES FOR HYPOGLYCEMIA PO PRN (18:09)
[2021-08-25] MEDS ORDERED: SODIUM CHLORIDE 0.9% 1000ML 1,000 ML IV SCH (18:09)
[2021-08-25] MEDS ORDERED: ACETAMINOPHEN 325 MG TAB PO PRN (18:09)
[2021-08-25] MEDS ORDERED: GLUCAGON FOR INJ 1 MG VIAL SQ PRN (18:09)
[2021-08-25] MEDS ORDERED: GLUCOSE 40% GEL 15 GM TUBE PO PRN (18:09)
[2021-08-25] MEDS ORDERED: DEXTROSE 50% 50 ML SYRINGE IV PRN (18:09)
[2021-08-25] MEDS ORDERED: GLUCOSE 10 TABS/TUBE PO PRN (18:09)
[2021-08-25] MEDS: INSULIN GLARGINE SOLOSTAR 100 UNITS/ML 3 ML PEN SC SCH (21:44)
[2021-08-25] MEDS: FAMOTIDINE 20 MG TAB PO SCH (21:44)
[2021-08-25] MEDS: GABAPENTIN 300 MG CAP PO SCH (21:44)
[2021-08-25] MEDS: INSULIN ASPART 100 UNITS/ML 3 ML PEN SC SCH (21:45)
[2021-08-25] MEDS: METOPROLOL SUCC 50MG EXT REL TAB PO SCH (21:46)
[2021-08-25] MEDS: ROSUVASTATIN CALCIUM 20 MG TAB PO SCH (21:46)
[2021-08-25] MEDS: traMADol HCL 50 MG TABLET PO SCH (21:46)
[2021-08-25] MEDS: oxyCODONE HCL IR 5 MG TAB (IMMEDIATE RELEASE) PO PRN (23:35)
[2021-08-26] MEDS: DOXYCYCLINE HYCLATE 100 MG in DEXTROSE 5% 100 ML IV SCH ×2 (03:37→17:22)
[2021-08-26 03:43] LABS: Appearance Urine Clear (Clear); Bilirubin Urine Negative (Negative); Blood Urine Negative (Negative); Color Urine Yellow; Glucose Urine UA Negative (Negative); Ketones Urine Negative (Negative); Leukocyte Esterase Urine Negative (Negative); Nitrite Urine Negative (Negative); Protein Urine Negative (Negative); Urobilinogen Urine Negative (Negative); pH Urine 7.5 (4.5-7.5)
[2021-08-26 08:17] LABS: Basophils # (auto) 0.03 K/uL (0-0.2); Basophils % (auto) 0.3 %; Eosinophils # (auto) 0.23 K/uL (0-0.5); Hematocrit (blood only) 41.7 % (37-47); Hemoglobin 13.3 g/dL (12.0-16.0); Immature Granulocytes # (auto) 0.06 K/uL (0.00-0.02); Immature Granulocytes % (auto) 0.5 %; Lymphocytes # (auto) 3.17 K/uL (1.2-3.4); Lymphocytes % (auto) 27.8 %; Mean Corpuscular Hemoglobin 27.5 pg (25-34); Mean Corpuscular Hgb Conc 31.9 g/dL (32-36); Mean Corpuscular Volume 86.3 fL (80-100); Mean Platelet Volume 9.2 fL (7.4-10.4); Monocytes # (auto) 0.92 K/uL (0.11-0.59); Monocytes % (auto) 8.1 %; Neutrophils # (auto) 6.98 K/uL (1.4-6.5); Neutrophils % (auto) 61.3 %; Platelet Count 408 K/uL (130-400); RDW Coefficient of Variation 15.7 % (11.5-14.5); Red Blood Count 4.83 M/uL (4.2-5.4); White Blood Count 11.39 K/uL (4.8-10.8)
[2021-08-26] MEDS: INSULIN ASPART 100 UNITS/ML 3 ML PEN SC SCH ×4 (08:27→21:05)
[2021-08-26] MEDS: PANTOprazole 40 MG TAB PO SCH (08:30)
[2021-08-26] MEDS: DULoxetine HCL 60 MG CAP PO SCH (08:31)
[2021-08-26 08:36] LABS: BUN Creatinine Ratio 17.3 (10-20); Calcium 8.9 mg/dl (8.5-10.1); Creatinine Clr Calc Pharmacy 53.8 ml/min; Est GFR (African American) 59.6 ml/min; Est GFR (Non-African American) 51.4 ml/min; Potassium 4.1 mmol/L (3.5-5.1)
[2021-08-26] MEDS: GABAPENTIN 300 MG CAP PO SCH ×2 (08:40→21:03)
[2021-08-26] MEDS: ASPIRIN 81 MG ECTAB PO SCH (08:40)
[2021-08-26] MEDS: amLODIPine BESYLATE 5 MG TAB PO SCH (08:41)
[2021-08-26] MEDS: predniSONE 5 MG TAB PO SCH (08:41)
[2021-08-26] MEDS: cefTRIAXone SODIUM 2,000 MG in DEXTROSE 5% 50 ML IV SCH (08:42)
[2021-08-26] MEDS: ISOSORBIDE MONO EXTENDED REL 30 MG TABCR PO SCH (08:42)
[2021-08-26] MEDS: PRASugrel TAB 10 MG TAB PO SCH (08:42)
[2021-08-26] MEDS: traMADol HCL 50 MG TABLET PO SCH ×2 (08:51→21:06)
[2021-08-26] MEDS: guaiFENesin 200 MG TAB PO SCH ×2 (17:22→21:03)
[2021-08-26] MEDS: FAMOTIDINE 20 MG TAB PO SCH (21:03)
[2021-08-26] MEDS: METOPROLOL SUCC 50MG EXT REL TAB PO SCH (21:04)
[2021-08-26] MEDS: INSULIN GLARGINE SOLOSTAR 100 UNITS/ML 3 ML PEN SC SCH (21:04)
[2021-08-26] MEDS: ROSUVASTATIN CALCIUM 20 MG TAB PO SCH (21:04)
[2021-08-26] MEDS: oxyCODONE HCL IR 5 MG TAB (IMMEDIATE RELEASE) PO PRN (22:46)
--- NOTE | 2021-08-26 23:25 | Hospitalist Progress Note ---
Date of Service August 26, 2021 Assessment & Plan (1) Pneumonia: (2) Hypoxia: (3) Acute kidney injury superimposed on CKD: Plan: Baseline creatinine 1.2 (4) Polyarthritis of multiple sites: (5) PVD (peripheral vascular disease): (6) GERD (gastroesophageal reflux disease): (7) CAD (coronary artery disease): (8) Diabetes: (9) Low back pain: Plan: Present on admission on going cough associated with dizziness after taking NyQuil Chest x-ray showed bilateral airspace opacities. She was treated with azithromycin before IV ceftriaxone and doxycycline started in the ED, continue Blood culture no growth Sputum culture ordered but did not send since patient unable to bring any phlegm Continue neb treatment, guaifenesin, flutter valve and spirometry Will consider to get a two-step on discharge Clinically improved Dizziness Mostly due to medication side effect NyQuil CTA showed no acute finding No focal neuro deficit on exam Resolved Diabetes Most recent hemoglobin A1c 7.7 on 08/20/21 Lantus, novolog sliding scale. Continue monitor blood sugar DVT Prophylaxis: SCDs, we will add heparin subcu Code Status: Full Code Admission and Anticipated Discharge Date Admission Date: August 25, 2021 Subjective Patient was seen and examined for follow-up of shortness of breath and dizziness Sitting at the edge of the bed with no acute distress Patient said that she continues to have a hard time to bring the phlegm up Said that she is not having any dizziness Denies any chest pain, palpitation, dizziness, shortness of breath. Review of Systems Review of Systems: All systems reviewed & are unremarkable except as noted in Subjective Physical Exam Physical Exam: General- No acute distress Head- atraumatic Eyes- PERRL, EOMI, ENT- oropharynx clear Neck- supple, no JVD Lungs- clear to auscultation Heart- regular rhythm; no murmur Abdomen- normal bowel sounds, soft, nontender Extremities- no calf tenderness Neuro- alert, oriented x 3; PERRL, EOMI; no facial palsy; no dysarthria Skin- warm & dry Results & Data Results & Data ([facility]) Vital Signs (Past 12 Hours) Vital Signs Temp Pulse Pulse Resp BP Pulse Ox 08/26/21 19:39 36.9 C 59 L 18 167/72 H 95 08/26/21 17:38 65 08/26/21 15:47 36.8 C 65 16 135/73 96 08/26/21 14:51 36.8 C 58 L 16 163/70 H 92 (1) Pneumonia Laterality: bilateral Lung location: unspecified part of lung Pneumonia type: due to unspecified organism Qualified Code(s): J18.9 - Pneumonia, unspecified organism (2) Low back pain Back pain laterality: left Chronicity: acute Sciatica presence: without sciatica Qualified Code(s): M54.5 - Low back pain
[2021-08-27] MEDS: guaiFENesin 200 MG TAB PO SCH ×2 (03:39→09:28)
[2021-08-27] MEDS: DOXYCYCLINE HYCLATE 100 MG in DEXTROSE 5% 100 ML IV SCH (04:15)
[2021-08-27] MEDS: HEPARIN SOD 5,000 UNIT/0.5 ML VIAL SQ SCH ×2 (05:38→13:34)
[2021-08-27] MEDS: traMADol HCL 50 MG TABLET PO SCH (09:26)
[2021-08-27] MEDS: ASPIRIN 81 MG ECTAB PO SCH (09:27)
[2021-08-27] MEDS: DULoxetine HCL 60 MG CAP PO SCH (09:27)
[2021-08-27] MEDS: PANTOprazole 40 MG TAB PO SCH (09:27)
[2021-08-27] MEDS: ISOSORBIDE MONO EXTENDED REL 30 MG TABCR PO SCH (09:27)
[2021-08-27] MEDS: amLODIPine BESYLATE 5 MG TAB PO SCH (09:27)
[2021-08-27] MEDS: GABAPENTIN 300 MG CAP PO SCH (09:28)
[2021-08-27] MEDS: PRASugrel TAB 10 MG TAB PO SCH (09:28)
[2021-08-27] MEDS: INSULIN ASPART 100 UNITS/ML 3 ML PEN SC SCH ×2 (09:29→12:38)
[2021-08-27] MEDS: predniSONE 5 MG TAB PO SCH (09:29)
[2021-08-27] MEDS: cefTRIAXone SODIUM 2,000 MG in DEXTROSE 5% 50 ML IV SCH (09:34)
--- NOTE | 2021-08-27 13:36 | Discharge Summary ---
Date of Service August 27, 2021 Admission HPI Per Admitting Provider This is a 71 y/o female with a PMH of insulin-dependent diabetes, CKD3b, PVD, HTN, VINCE, CAD w/ hx [place], dyslipidemia, chronic systolic CHF, OA, and chronic pain who presents to the ED today with shakiness and mild confusion this morning. Pt reports that on Aug 04, she was diagnosed with pneumonia and treated with azithromycin (CXR same day showed bilateral pulmonary opacicities, COVID was negative). She overall improved from them other than a residual dry cough that is worse at night. Cough comes in episodes and is not productive, no hemoptysis. Last night, she took a "swallow" of Nyquil from the bottle to help with the cough. This morning, when she woke up, she felt very shaky and like her thinking was slow or cloudy. Her son, who is in MA school, was concerned at her confusion and that she may be having a stroke so he recommended pt come to the ED for evaluation, which she did. Currently, she is feeling very tired but her original symptoms have improved. She notes feeling very fatigued all day today, is frequently falling asleep. She notes ongoing issues with taking a deep breath since being ill last month. Also notes increased WILL the past several days. She has had mild LE edema for the past week or more. Persistent congestion in her upper chest, sinus pain. Appetite has been at baseline. Sugars running 160s-170s which pt reports is baseline for her. Admission Exam Per Admitting Provider Constitutional: WD/WN, vitals as above no acute distress Eyes: + anicteric sclerae Neck: trachea midline Respiratory: no respiratory distress and no labored breathing Auscultation: + crackles (bilateral bases but right > left); no wheezes Cardiovascular: Rate/Rhythm: regular rate and regular rhythm Heart Sounds: + murmur Vessels: dorsalis pedis pulses present and radial pulses present Extremities: + pedal edema (1+) Gastrointestinal (Abdomen): Inspection/Auscultation: normal bowel sounds; abdomen not distended Percussion/Palpation: abdomen soft; abdomen nontender Musculoskeletal: Head/Neck/Chest: normocephalic, head atraumatic and neck supple Skin: no rashes and no jaundice Neurologic: moves all extremities; no focal motor deficits and not confused Psychiatric: A+Ox3, euthymic affect Principal Diagnosis (1) Pneumonia: (2) Hypoxia: (3) Acute kidney injury superimposed on CKD: (4) Polyarthritis of multiple sites: (5) PVD (peripheral vascular disease): (6) GERD (gastroesophageal reflux disease): (7) CAD (coronary artery disease): (8) Diabetes: (9) Low back pain Discharge Exam General- No acute distress Head- atraumatic Eyes- PERRL, EOMI, ENT- oropharynx clear Neck- supple, no JVD Lungs- clear to auscultation Heart- regular rhythm; no murmur Abdomen- normal bowel sounds, soft, nontender Extremities- no calf tenderness Neuro- alert, oriented x 3; PERRL, EOMI; no facial palsy; no dysarthria Skin- warm & dry Discharge Data Allergies Allergy/AdvReac Type Severity Reaction Status Date / Time niacin Allergy Severe HOT/BURNING Verified 08/25/21 12:45 FEELING Iodinated Contrast Media Allergy Intermediate ITCHING Verified 08/25/21 12:45 WITH IVP DYE sitagliptin AdvReac Severe PANCREATITI Verified 08/25/21 12:45 S Consultations 08/25/21 15:28 ED Decision to Admit Stat Ordered Studies 08/25/21 11:17 CT head/brain wo con Stat CT head/brain wo con CLINICAL HISTORY: weakness, shakey Technique: Contiguous axial CT images of the head were acquired from the base of the skull to the vertex without intravenous contrast administration. Images were viewed in brain, subdural and bone windows. Automated dose lowering techniques and/or adjustment according to patient size were utilized for this exam. Comparison: Comparison is made to CT head 05/01/2021 Findings: Areas of decreased attenuation are present in the periventricular and subcortical white matter bilaterally consistent with small vessel ischemic disease. Generalized cerebral atrophy with commensurate enlargement of the ventricles, sulci, and cisterns is also present. There is no acute intracranial hemorrhage or evidence of acute territorial infarction. No shift of the midline structures, mass effect, or extra-axial abnormalities are shown. Atherosclerotic calcifications are present in the intracranial segments of the internal carotid arteries. Imaged portions of the paranasal sinuses and mastoid air cells are clear. The orbits appear normal. There are no acute fractures of the calvaria or scalp swelling. Impression: No acute intracranial hemorrhage, no evidence of acute territorial infarction or other acute intracranial disease process. ACT 112: Negative or not required by law. Electronically signed by: Shaw Bolaños M.D. 08/25/2021 12:20 PM Dictated:08/25/210 Transcribed: 08/25/211219 SINGLE VIEW CHEST CLINICAL HISTORY: Generalized weakness. FINDINGS: An AP, portable, upright chest radiograph is compared to study dated 05/01/2021. Heart is enlarged noting atherosclerotic calcification of the thoracic aorta. There are bilateral airspace opacities. No large pleural effusion or pneumothorax is seen. The skeletal structures are osteopenic. The bony thorax is grossly intact. IMPRESSION: 1. There are bilateral airspace opacities. This could represent pulmonary edema and/or an infectious/inflammatory pneumonitis. Clinical correlation will be required and radiographic follow-up to resolution is recommended. 2. Cardiomegaly. ACT 112: Negative or not required by law. Electronically signed by: Tomás Askew M.D. 08/25/2021 12:27 PM Dictated:08/25/216 Transcribed: 08/25/211225 Hospital Course (1) Pneumonia: (2) Hypoxia: (3) Acute kidney injury superimposed on CKD: (4) Polyarthritis of multiple sites: (5) PVD (peripheral vascular disease): (6) GERD (gastroesophageal reflux disease): (7) CAD (coronary artery disease): (8) Diabetes: (9) Low back pain: Present on admission on going cough associated with dizziness after taking NyQuil Chest x-ray showed bilateral airspace opacities. She was treated with azithromycin before IV ceftriaxone and doxycycline started in the ED, continue Blood culture no growth Sputum culture ordered but did not send since patient unable to bring any phlegm Continue neb treatment, guaifenesin, flutter valve and spirometry Will consider to get a two-step on discharge Clinically improved Dizziness Mostly due to medication side effect NyQuil CTA showed no acute finding No focal neuro deficit on exam Resolved Diabetes Most recent hemoglobin A1c 7.7 on 08/20/21 Lantus, novolog sliding scale. Continue monitor blood sugar DVT Prophylaxis: SCDs, we will add heparin subcu Code Status: Full Code Total Time Total Time Spent Total Time Spent (In Minutes): 35 minutes Discharge Plan Discharge Items Patient Disposition: Home - Self-Care Reason For Visit: PNEUMONIA Discharge Diagnosis: (1) Pneumonia: (2) Hypoxia: (3) Acute kidney injury superimposed on CKD: (4) Polyarthritis of multiple sites: (5) PVD (peripheral vascular disease): (6) GERD (gastroesophageal reflux disease): (7) CAD (coronary artery disease): (8) Diabetes: (9) Low back pain Condition on Discharge: Fair Activity: Resume your previous activity Non-emergency contact: Primary Care Provider Call non-emergency contact if: you have any medication questions and your symptoms worsen Follow-up/Referrals: Elif Falcon MD [Primary Care Provider] - (Date & Time 09/02/2021 11:00 AM Provider Elif Falcon MD Department [facility] ) Diet: Heart Healthy Addtl Attending Provider Instructions: Follow up with your primary care provider Dr. Falcon 09/02/2021 11:00 AM Elif Falcon MD [facility] Continue flutter valve and incentive spirometry on discharge Seek medical attention if your symptoms worsening Pending Studies at Discharge: No Stand-Alone Forms: [facility] Nephosity, Smoking Cessation Medications and DC Order Prescriptions: New doxycycline hyclate 100 mg tablet 100 mg PO BID Qty: 10 RF: 0 guaifenesin 200 mg tablet 200 mg PO TID PRN (Reason: congestion) Qty: 15 RF: 0 Continued duloxetine [Cymbalta] 60 mg capsule,delayed release(DR/EC) 60 mg PO QAM RF: 0 metoprolol succinate 100 mg tablet extended release 24 hr 100 mg PO QPM RF: 0 amlodipine 5 mg tablet 5 mg PO QAM RF: 0 omeprazole 40 mg capsule,delayed release(DR/EC) 40 mg PO DAILYBB RF: 0 famotidine 20 mg tablet 20 mg PO QPM RF: 0 nitroglycerin 0.4 mg tablet, sublingual 0.4 mg Sublingual UD PRN (Reason: Chest Pain) RF: 0 furosemide 20 mg tablet 20 mg PO UD RF: 0 prasugrel 10 mg tablet 10 mg PO QAM RF: 0 insulin aspart U-100 [Novolog U-100 Insulin aspart] 100 unit/mL Solution 1 sliding scale dose SUBCUT USEASDIRECTD PRN (Reason: HIGH BLOOD SUGAR) RF: 0 gabapentin [Neurontin] 300 mg capsule 300 mg PO QAM RF: 0 Novolin N NPH U-100 Insulin 100 unit/mL suspension 40 unit subcut BIDM RF: 0 aspirin 81 mg Tablet,Delayed Release (Dr/Ec) 81 mg PO QAM RF: 0 tramadol 50 mg tablet 50 mg PO Q6 PRN (Reason: Pain) RF: 0 tramadol 100 mg tablet extended release 24 hr 100 mg PO BID RF: 0 oxycodone 5 mg tablet 5 mg PO Q4H PRN (Reason: pain) Qty: 12 RF: 0 rosuvastatin 40 mg tablet 40 mg PO PM RF: 0 gabapentin 300 mg Capsule 600 mg PO QPM RF: 0 prednisone 5 mg tablet 5 mg PO DAILY Qty: 7 RF: 0 albuterol sulfate 90 mcg/actuation HFA aerosol inhaler 2 puff INHALATION Q4 PRN (Reason: Bronchospasm) RF: 0 diclofenac sodium 1 % Gel 2 g TOPICAL QID PRN (Reason: Pain) RF: 0 isosorbide mononitrate 30 mg tablet extended release 24 hr 30 mg PO DAILY RF: 0 Discharge Orders: Discharge Order (Routine); Ordered 08/27/21 Ordered By: Pennie Naidu Admission Data Admit Date/Time: 08/25/21 16:40 Attending Provider: Pennie Naidu Admit Provider: Alfonzo Olmstead Primary Care Provider: Elif Falcon Other Providers: Alfonzo Olmstead Other Interventions: Discharge Summary Assessment (RN) Last Done: 08/27/21 14:21
== END 2021-08-27 14:53 | disposition home or self-care (01) ==
LOC: 2N 11:00 → ED 11:00 → SUATTDRO 16:40 → 2N 17:49

== ENCOUNTER 2022-03-20 08:27 | Observation (INO) ==
[2022-03-20] MEDS ORDERED: SODIUM CHLORIDE 0.9% 1000ML 1,000 ML IV STA (08:44)
[2022-03-20 08:59] LABS: Basophils # (auto) 0.03 K/uL (0-0.2); Basophils % (auto) 0.2 %; Eosinophils # (auto) 0.16 K/uL (0-0.5); Eosinophils % (auto) 1.2 %; Hematocrit (blood only) 38.7 % (37-47); Hemoglobin 12.2 g/dL (12.0-16.0); Immature Granulocytes # (auto) 0.04 K/uL (0.00-0.02); Immature Granulocytes % (auto) 0.3 %; Lymphocytes # (auto) 1.32 K/uL (1.2-3.4); Lymphocytes % (auto) 9.8 %; Mean Corpuscular Hemoglobin 27.1 pg (25-34); Mean Corpuscular Hgb Conc 31.5 g/dL (32-36); Mean Corpuscular Volume 85.8 fL (80-100); Mean Platelet Volume 9.4 fL (7.4-10.4); Monocytes # (auto) 0.96 K/uL (0.11-0.59); Monocytes % (auto) 7.1 %; Neutrophils % (auto) 81.4 %; Platelet Count 363 K/uL (130-400); RDW Coefficient of Variation 16.3 % (11.5-14.5); RDW Standard Deviation 51.5 fL (36.4-46.3); Red Blood Count 4.51 M/uL (4.2-5.4); White Blood Count 13.51 K/uL (4.8-10.8)
--- NOTE | 2022-03-20 09:07 | Emergency Department Note ---
Impression & Plan Weakness, Multifocal pneumonia, Nausea & vomiting ED Provider Note Provider: Joseph Kapoor MD DATE OF SERVICE: 03/20/2022 CHIEF COMPLAINT: Nausea and vomiting HISTORY OF PRESENT ILLNESS: Patient is a 71-year-old female history of diabetes, CAD, and arthritis presenting today via ambulance from her home. Patient states over the past 2 or 3 months she is had some intermittent nausea and vomiting predominantly in the mornings. Patient states this happened again this morning and she did vomit but no blood quality to this. States he has had some loose stools at times but not the last several days. Denies other sick contacts. Patient states she is not had shortness of breath or chest pain. Patient states her symptoms resolved in route although she does feel thirsty and is a bit ti red. Patient denies other URI symptoms or sore throat. Patient did not have breakfast yet today. She states her 's been ill and that she is been able to follow-up in the outpatient setting with her doctor to discuss these issues. REVIEW OF SYSTEMS: A total of 10 review of systems was obtained and negative except as stated above in the HPI. PAST MEDICAL HISTORY: As noted above MEDICATIONS: Reviewed home medications includes aspirin SOCIAL HISTORY: Lives at home with PHYSICAL EXAM: GENERAL: alert and oriented in no acute distress on stretcher Head: normocephalic and atraumatic EYES: No injection, discharge or icterus. NECK: Trachea midline. ENT: Mucous membranes pink and moist. LUNGS: Airway patent. No retractions. Breath sounds clear with good air entry bilaterally. HEART: Regular rate and rhythm. No chest wall tenderness ABDOMEN: Soft and non-tender, without guarding or rebound. SKIN: Acyanotic, warm, dry, without rashes EXTREMITIES: Without swelling, tenderness or deformity NEUROLOGICAL: No focal deficits. No aphasia. No facial droop or slurred speech. EK bpm normal sinus rhythm. No PVC or PAC. No acute ST segment elevation noted with nonspecific inferior lateral T wave changes. QTc 430. EK bpm normal sinus rhythm. No PVC or PAC. QTc 437. No acute ST segment elevation or depression. Compared to previous similar. CONTINUOUS CARDIAC MONITORING: was ordered and showed a heart rate of 60s-70s bpm in normal sinus rhythm Patient's laboratory studies and imaging reviewed. Differential includes Appendicitis, infections, diverticulitis, UTI, obstruction, mesenteric ischemia, aortic pathology, inflammatory bowel disease, renal colic, PUD, pancreatitis, biliary pathology, hernia, volvulus, constipation, as well as other pathologies. IMPRESSION/MEDICAL DECISION MAKING: Patient with a benign abdomen on exam reports some intermittent nausea and vomiting and occasional abdominal pain. Denies any headache or other neurologic al deficits. Denies chest pain. EKG and basic blood work was sent. Given the chronicity of symptoms was her age and comorbidities CT scan of the abdomen pelvis to be obtained as well as blood work. Given some IV fluid. Blood work does return with a white blood cell count of 13.5. No anemia. S light creatinine elevation 1.4 mildly off baseline. Given again IV fluids here. No evidence of hepatitis or pancreatitis based on labs. Negative COVID test. High sensitive troponin elevated EKG without significant acute changes and again she is denying chest pain at this time. CT abdomen pelvis per radiology without acute abnormalities in the pelvis such as mass or obstruction. They do question possible record and left lower lobe aspiration. Patient not hypoxic. May be related to vomiting today however. Feel that covering her with a course of Augmentin would be reasonable. Later given a dose of azithromycin for atypical coverage. Patient's son at bedside on reassessment and states the patient was very weak and confused with the vomiting earlier. This is improving now although she still quite fatigued. She did ambulate to the bathroom here. Son reports the patient did complain of little bit of mild upper abdominal discomfort while here and he was concerned regarding cardiac status with her. Repeat EKG and troponin ordered. Stable. Chest x-ray completed given the CT f indings questions a multi space pneumonia. Oxygen levels have been in the low 90s here ranging from 90 to 92% on room air. Patient still quite fatigued. Discussed with her given this finding antibiotics very reasonable but with her generalized weakness although she is ambulatory in shared decision-making with the patient, hospitalist will evaluate for observation at this time. DIAGNOSIS: Weakness, multifocal pneumonia, nausea and vomiting DISPOSITION: Hospitalist will evaluate Patient was agreeable with this plan. Past Med/Surg History Medical History (Updated 03/20/22 @ 13:34 by TU Chou) Anemia Aortic stenosis Moderate aortic stenosis present (MG 18.6, VERONIQUE 0.88) per 05/29/19 DSE; possible bicuspid AV per 12/2018* CAD (coronary artery disease) Aggressive atherosclerotic coronary disease s/p multivessel coronary intervention 2006 receiving drug-eluting stents to the mid and distal right coronary artery as well as proximal left circumflex. Late acute stent thrombosis August 2011 in the setting of Aspirin and Plavix withdrawal, treated with drug-eluting Xience stent to the proximal circumflex marginal and right coronary arteries. Repeat stent thrombosis April 2015, treated with drug-eluting stent to the proximal and mid right coronary artery Carotid artery stenosis Chronic deep vein thrombosis (DVT) Per records dating back to 2015; patient denies Chronic kidney disease Confusion Diffuse myofascial pain syndrome Fibromyalgia Hiatal hernia History of difficult intubation Hx glidescope intubation: 08/24/16: Left TKA: Glidescope #3, ETT 7.0 + PNB at [facility] Hx of sciatica Hypoxia Leukocytosis Low back pain b/l LE radiculopathy Myocardial Infarction X3- Osteoarthritis of left knee Pneumonia Weakness Surgical History History of appendectomy History of cardiac cath X3 (2006, 2010, 2014)- TOTAL 5 CARDIAC STENTS History of lumbar fusion History of total knee arthroplasty RIGHT Family History Other No significant family history Social History Smoking Status: Former smoker Tobacco Type: Cigarettes Second Hand Exposure: No; Hx Alcohol Use: No Hx Substance Use: No Preferred Language: Kinyarwanda Communication Ability: Effective Visual Impairment: No Limitations Hearing Ability: Normal Shoe Treer Required: No Beliefs That Will Affect Care: None marital status: Current Living Situation: Spouse Feels Safe at Home: Yes Assistive Devices: None Allergies Allergies Allergy/AdvReac Type Severity Reaction Status Date / Time niacin Allergy Severe HOT/BURNING Verified 08/25/21 12:45 FEELING Iodinated Contrast Media Allergy Intermediate ITCHING Verified 08/25/21 12:45 WITH IVP DYE sitagliptin AdvReac Severe PANCREATITI Verified 08/25/21 12:45 S Home Meds Home Medications Medication Instructions Recorded Confirmed amlodipine 5 mg tablet 5 mg PO QAM 08/22/18 08/25/21 famotidine 20 mg tablet 20 mg PO QPM 08/22/18 08/25/21 furosemide 20 mg tablet 20 mg PO UD 08/22/18 08/25/21 metoprolol succinate 100 mg 100 mg PO QPM 08/22/18 08/25/21 tablet,extended release 24 hr nitroglycerin 0.4 mg sublingual 0.4 mg SUBLINGUAL UD PRN 08/22/18 08/25/21 tablet omeprazole 40 mg capsule,delayed 40 mg PO DAILYBB 08/22/18 08/25/21 release prasugrel 10 mg tablet 10 mg PO QAM 08/22/18 08/25/21 duloxetine 60 mg capsule,delayed 60 mg PO QAM 11/01/18 08/25/21 release (Cymbalta) insulin NPH isoph U-100 human 100 40 unit SUBCUT BIDM 04/05/19 08/25/21 unit/mL subcutaneous suspension (Novolin N NPH U-100 Insulin isophane) insulin aspart U-100 100 unit/mL 1 sliding scale dose SUBCUT 05/30/19 08/25/21 subcutaneous solution (Novolog USEASDIRECTD PRN U-100 Insulin aspart) gabapentin 300 mg capsule 300 mg PO QAM 11/22/19 08/25/21 (Neurontin) aspirin 81 mg tablet,delayed 81 mg PO QAM 09/27/20 08/25/21 release tramadol 100 mg tablet,extended 100 mg PO BID 09/27/20 08/25/21 release 24 hr tramadol 50 mg tablet 50 mg PO Q6 PRN 09/27/20 08/25/21 rosuvastatin 40 mg tablet 40 mg PO PM 04/16/21 08/25/21 gabapentin 300 mg capsule 600 mg PO QPM 05/01/21 08/25/21 albuterol sulfate 90 mcg/actuation 2 puff INHALATION Q4 PRN 08/25/21 08/25/21 aerosol inhaler diclofenac sodium 1 % topical gel 2 g TOPICAL QID PRN 08/25/21 08/25/21 isosorbide mononitrate 30 mg 30 mg PO DAILY 08/25/21 08/25/21 tablet,extended release 24 hr Previous Rx's Medication Instructions Recorded oxycodone 5 mg tablet 5 mg PO Q4H PRN #12 tab 04/07/21 prednisone 5 mg tablet 5 mg PO DAILY #7 tab 05/02/21 doxycycline hyclate 100 mg tablet 100 mg PO BID #10 tab 08/27/21 guaifenesin 200 mg tablet 200 mg PO TID PRN #15 tab 08/27/21 Results & Data (ED) Vital Signs Vital Signs - 24 hr 03/20/22 08:31 03/20/22 10:00 03/20/22 10:11 Temperature 37.5 C Temperature Source Oral Pulse Rate 79 Pulse Rate [Right Apical] 74 Pulse Rate from SpO2 Sensor Respiratory Rate 18 18 Blood Pressure 143/62 H Blood Pressure [Right Arm] 143/62 H Blood Pressure Mean 89 Blood Pressure Mean [Right Arm] 89 Pulse Oximetry 97 95 Oxygen Delivery Method Room Air Room Air Room Air Sepsis Recent Fever Within 48 Hours No Sepsis New/Unexplained Change in Mental Status No Sepsis Action Taken by Nursing No Action Required 03/20/22 11:01 03/20/22 11:30 03/20/22 12:00 Temperature Temperature Source Pulse Rate 73 68 68 Pulse Rate [Right Apical] Pulse Rate from SpO2 Sensor 73 68 Respiratory Rate 21 23 21 Blood Pressure 116/58 L 135/63 132/56 L Blood Pressure [Right Arm] Blood Pressure Mean 77 87 81 Blood Pressure Mean [Right Arm] Pulse Oximetry 93 Oxygen Delivery Method Room Air Sepsis Recent Fever Within 48 Hours Sepsis New/Unexplained Change in Mental Status Sepsis Action Taken by Nursing 03/20/22 12:30 03/20/22 13:00 03/20/22 13:30 Temperature Temperature Source Pulse Rate 67 70 73 Pulse Rate [Right Apical] Pulse Rate from SpO2 Sensor 67 70 Respiratory Rate 19 20 26 H Blood Pressure 145/56 H 130/74 Blood Pressure [Right Arm] Blood Pressure Mean 85 92 Blood Pressure Mean [Right Arm] Pulse Oximetry 93 92 Oxygen Delivery Method Room Air Room Air Sepsis Recent Fever Within 48 Hours Sepsis New/Unexplained Change in Mental Status Sepsis Action Taken by Nursing 03/20/22 13:31 03/20/22 14:00 Temperature Temperature Source Pulse Rate 75 75 Pulse Rate [Right Apical] Pulse Rate from SpO2 Sensor Respiratory Rate 24 19 Blood Pressure 126/89 Blood Pressure [Right Arm] Blood Pressure Mean 101 Blood Pressure Mean [Right Arm] Pulse Oximetry Oxygen Delivery Method Room Air Sepsis Recent Fever Within 48 Hours Sepsis New/Unexplained Change in Mental Status Sepsis Action Taken by Nursing Laboratory Data Result diagrams: 03/20/22 08:35 03/20/22 08:35 Lab Results 03/20/22 03/20/22 03/20/22 Range/Units 08:35 08:35 09:00 WBC 13.51 H (4.8-10.8) K/uL RBC 4.51 (4.2-5.4) M/uL Hgb 12.2 (12.0-16.0) g/dL Hct 38.7 (37-47) % MCV 85.8 (80-100) fL MCH 27.1 (25-34) pg MCHC 31.5 L (32-36) g/dL RDW Std Deviation 51.5 H (36.4-46.3) fL RDW Coeff of Jovana 16.3 H (11.5-14.5) % Plt Count 363 (130-400) K/uL MPV 9.4 (7.4-10.4) fL Immature Gran % (Auto) 0.3 % Neut % (Auto) 81.4 % Lymph % (Auto) 9.8 % [place] % (Auto) 7.1 % Eos % (Auto) 1.2 % Baso % (Auto) 0.2 % Neut # (Auto) 11.00 H (1.4-6.5) K/uL Lymph # (Auto) 1.32 (1.2-3.4) K/uL [place] # (Auto) 0.96 H (0.11-0.59) K/uL Eos # (Auto) 0.16 (0-0.5) K/uL Baso # (Auto) 0.03 (0-0.2) K/uL Immature Gran # (Auto) 0.04 H (0.00-0.02) K/uL Sodium 139 (136-145) mmol/L Potassium 3.8 (3.5-5.1) mmol/L Chloride 108 H (98-107) mmol/L Carbon Dioxide 23 (21-32) mmol/L Anion Gap 8 (3-11) BUN 30 H (6-23) mg/dl Creatinine 1.47 H (0.6-1.2) mg/dl Est Cr Clr Drug Dosing 40.8 ml/min Est GFR ( Amer) 41.5 ml/min Est GFR (Non-Af Amer) 35.8 ml/min BUN/Creatinine Ratio 20.4 H (10-20) Glucose 127 H (70-99(Fasting)) mg/dl Calcium 8.3 L (8.5-10.1) mg/dl Total Bilirubin 0.8 (0.2-1.0) mg/dl AST 12 L (13-39) U/L ALT 12 (7-52) U/L Alkaline Phosphatase 45 (34-104) U/L Troponin I High Sens 2.8 (0-14) pg/ml Total Protein 6.5 (6.0-8.3) gm/dl Albumin 3.6 (3.4-5.0) gm/dl Globulin 2.9 (2.5-4.0) gm/dl Albumin/Globulin Ratio 1.2 (0.9-2) Lipase 17 (11-82) U/L SARS-CoV-2, RNA, NAAT NEGATIVE (NEGATIVE) 03/20/22 Range/Units 11:20 WBC (4.8-10.8) K/uL RBC (4.2-5.4) M/uL Hgb (12.0-16.0) g/dL Hct (37-47) % MCV (80-100) fL MCH (25-34) pg MCHC (32-36) g/dL RDW Std Deviation (36.4-46.3) fL RDW Coeff of Jovana (11.5-14.5) % Plt Count (130-400) K/uL MPV (7.4-10.4) fL Immature Gran % (Auto) % Neut % (Auto) % Lymph % (Auto) % [place] % (Auto) % Eos % (Auto) % Baso % (Auto) % Neut # (Auto) (1.4-6.5) K/uL Lymph # (Auto) (1.2-3.4) K/uL [place] # (Auto) (0.11-0.59) K/uL Eos # (Auto) (0-0.5) K/uL Baso # (Auto) (0-0.2) K/uL Immature Gran # (Auto) (0.00-0.02) K/uL Sodium (136-145) mmol/L Potassium (3.5-5.1) mmol/L Chloride (98-107) mmol/L Carbon Dioxide (21-32) mmol/L Anion Gap (3-11) BUN (6-23) mg/dl Creatinine (0.6-1.2) mg/dl Est Cr Clr Drug Dosing ml/min Est GFR ( Amer) ml/min Est GFR (Non-Af Amer) ml/min BUN/Creatinine Ratio (10-20) Glucose (70-99(Fasting)) mg/dl Calcium (8.5-10.1) mg/dl Total Bilirubin (0.2-1.0) mg/dl AST (13-39) U/L ALT (7-52) U/L Alkaline Phosphatase (34-104) U/L Troponin I High Sens 4.1 (0-14) pg/ml Total Protein (6.0-8.3) gm/dl Albumin (3.4-5.0) gm/dl Globulin (2.5-4.0) gm/dl Albumin/Globulin Ratio (0.9-2) Lipase (11-82) U/L SARS-CoV-2, RNA, NAAT (NEGATIVE) Administered Medications Discontinued Medications Amoxicillin/Clavulanate Potassium (Amoxicillin/Clavulanate 875 Mg Tab) 1 tab PO NOW ONE Stop: 03/20/22 11:09 Last Admin: 03/20/22 11:25 Dose: 1 tab Documented by: [id number] Azithromycin (Azithromycin 250 Mg Tab) 500 mg PO NOW ONE Stop: 03/20/22 12:51 Last Admin: 03/20/22 13:11 Dose: 500 mg Documented by: [id number] Sodium Chloride (Nss 1000ml) 1,000 mls @ 999 mls/hr IV .Q1H1M STA Stop: 03/20/22 09:44 Last Infusion: 03/20/22 10:21 Dose: 0 mls/hr Documented by: [id number] Admin: 03/20/22 09:11 Dose: 999 mls/hr Documented by: [id number] Sodium Chloride (Nss 1000ml) 500 mls @ 999 mls/hr IV .Q31M ONE Stop: 03/20/22 11:38 Last Infusion: 03/20/22 11:57 Dose: 0 mls/hr Documented by: [id number] Admin: 03/20/22 11:27 Dose: 999 mls/hr Documented by: [id number] Imaging Data Radiologist's Impression: Abdomen/Pelvis CT 03/20/22 08:44 CT abd pelvis wo con CLINICAL HISTORY: Intermittent abdominal pain and nausea vomiting TECHNIQUE: Helical axial images of the abdomen and pelvis were obtained. Automated dose lowering techniques and/or adjustment according to patient size were utilized for this exam. This exam was performed without intravenous contrast. CT DOSE: 526.95 mGy.cm COMPARISON: Comparison is made to CT abdomen pelvis 11/29/2013 FINDINGS: Lower chest: Airspace opacities are seen in the right greater than left lung base. Cardiomegaly is seen. Liver: Unremarkable. No focal lesions are seen. Gallbladder and biliary tree: No calcified gallstones. Normal caliber wall. No intra- or extrahepatic biliary ductal dilation. Pancreas: Unremarkable, no focal lesions. Spleen: Unremarkable. Adrenals: Unremarkable. Kidneys and ureters: Focal scarring is seen in the left kidney superior pole. Bladder: Unremarkable. Reproductive organs: Unremarkable. Bowel: Patient is status post appendectomy. There is a moderate to large hiatal hernia. Lymph nodes Retroperitoneal: Unremarkable. Mesenteric: Unremarkable. Pelvic: Unremarkable. Peritoneum: Normal. Vessels: Atherosclerotic calcifications are seen. Abdominal wall: A fat-containing umbilical hernia is seen. Bones: Degenerative changes in the visualized spine. Posterior fixation hardware seen at L4-L5. Grade 1 anterolisthesis is seen at L4-L5 and L5-S1. IMPRESSION: No acute abnormalities in the abdomen and pelvis, in particular no evidence of obstruction is seen. Airspace opacities in the right greater than left lower lobes is concerning for aspiration/pneumonia. ACT 112: Negative or not required by law. Electronically signed by: Shaw Bolaños M.D. 03/20/2022 10:16 AM Chest X-Ray 03/20/22 11:04 XR chest 1V portable CLINICAL HISTORY: ?pna TECHNIQUE: Single frontal radiograph of the chest was obtained. Comparison: Comparison is made to chest radiograph 08/25/2021 FINDINGS: No lines and tubes are seen. Cardiomegaly is noted. Airspace opacity is seen in the left upper lobe and right mid and lower lungs. There is prominence of the pulmonary vasculature. No evidence of pleural effusion or pneumothorax. IMPRESSION: Multifocal airspace opacities may represent atelectasis, pneumonia, and/or aspiration. ACT 112: Negative or not required by law. Electronically signed by: Shaw Bolaños M.D. 03/20/2022 11:21 AM Discharge Plan Visit Data Chief Complaint: Nausea Stated Complaint: NAUSEA, VOMITING ED Provider: Joseph Kapoor Discharge Problem: Weakness, Multifocal pneumonia, Nausea & vomiting Patient Disposition: Being Evaluated by Hospitalist Prescriptions Prescriptions: No Action duloxetine [Cymbalta] 60 mg capsule,delayed release(DR/EC) 60 mg PO QAM RF: 0 metoprolol succinate 100 mg tablet extended release 24 hr 100 mg PO QPM RF: 0 amlodipine 5 mg tablet 5 mg PO QAM RF: 0 omeprazole 40 mg capsule,delayed release(DR/EC) 40 mg PO DAILYBB RF: 0 famotidine 20 mg tablet 20 mg PO QPM RF: 0 nitroglycerin 0.4 mg tablet, sublingual 0.4 mg Sublingual UD PRN (Reason: Chest Pain) RF: 0 furosemide 20 mg tablet 20 mg PO UD RF: 0 prasugrel 10 mg tablet 10 mg PO QAM RF: 0 insulin aspart U-100 [Novolog U-100 Insulin aspart] 100 unit/mL Solution 1 sliding scale dose SUBCUT USEASDIRECTD PRN (Reason: HIGH BLOOD SUGAR) RF: 0 gabapentin [Neurontin] 300 mg capsule 300 mg PO QAM RF: 0 Novolin N NPH U-100 Insulin 100 unit/mL suspension 40 unit subcut BIDM RF: 0 aspirin 81 mg Tablet,Delayed Release (Dr/Ec) 81 mg PO QAM RF: 0 tramadol 50 mg tablet 50 mg PO Q6 PRN (Reason: Pain) RF: 0 tramadol 100 mg tablet extended release 24 hr 100 mg PO BID RF: 0 oxycodone 5 mg tablet 5 mg PO Q4H PRN (Reason: pain) Qty: 12 RF: 0 rosuvastatin 40 mg tablet 40 mg PO PM RF: 0 gabapentin 300 mg Capsule 600 mg PO QPM RF: 0 prednisone 5 mg tablet 5 mg PO DAILY Qty: 7 RF: 0 albuterol sulfate 90 mcg/actuation HFA aerosol inhaler 2 puff INHALATION Q4 PRN (Reason: Bronchospasm) RF: 0 diclofenac sodium 1 % Gel 2 g TOPICAL QID PRN (Reason: Pain) RF: 0 isosorbide mononitrate 30 mg tablet extended release 24 hr 30 mg PO DAILY RF: 0 doxycycline hyclate 100 mg tablet 100 mg PO BID Qty: 10 RF: 0 guaifenesin 200 mg tablet 200 mg PO TID PRN (Reason: congestion) Qty: 15 RF: 0 Referrals Referrals: Bartolome Villa DO [Primary Care Provider] -
[2022-03-20 09:26] LABS: Troponin I High Sensitivity 2.8 pg/ml (0-14)
[2022-03-20 09:28] LABS: Albumin Globulin Ratio 1.2 (0.9-2); Albumin Level 3.6 gm/dl (3.4-5.0); BUN Creatinine Ratio 20.4 (10-20); Bilirubin,Total 0.8 mg/dl (0.2-1.0); Calcium 8.3 mg/dl (8.5-10.1); Creatinine Clr Calc Pharmacy 40.8 ml/min; Est GFR (African American) 41.5 ml/min; Est GFR (Non-African American) 35.8 ml/min; Globulin 2.9 gm/dl (2.5-4.0); Potassium 3.8 mmol/L (3.5-5.1); Total Protein 6.5 gm/dl (6.0-8.3)
--- NOTE | 2022-03-20 10:18 | CT Scan Report ---
CT abd pelvis wo con CLINICAL HISTORY: Intermittent abdominal pain and nausea vomiting TECHNIQUE: Helical axial images of the abdomen and pelvis were obtained. Automated dose lowering tech niques and/or adjustment according to patient size were utilized for this exam. This exam was perfor med without intravenous contrast. CT DOSE: 526.95 mGy.cm COMPARISON: Comparison is made to CT abdomen pelvis 11/29/2013 FINDINGS: Lower chest: Airspace opacities are seen in the right greater than left lung base. Cardiomegaly is s een. Liver: Unremarkable. No focal lesions are seen. Gallbladder and biliary tree: No calcified gallstones. Normal caliber wall. No intra- or extrahepatic biliary ductal dilation. Pancreas: Unremarkable, no focal lesions. Spleen: Unremarkable. Adrenals: Unremarkable. Kidneys and ureters: Focal scarring is seen in the left kidney superior pole. Bladder: Unremarkable. Reproductive organs: Unremarkable. Bowel: Patient is status post appendectomy. There is a moderate to large hiatal hernia. Lymph nodes Retroperitoneal: Unremarkable. Mesenteric: Unremarkable. Pelvic: Unremarkable. Peritoneum: Normal. Vessels: Atherosclerotic calcifications are seen. Abdominal wall: A fat-containing umbilical hernia is seen. Bones: Degenerative changes in the visualized spine. Posterior fixation hardware seen at L4-L5. Grade 1 anterolisthesis is seen at L4-L5 and L5-S1. IMPRESSION: No acute abnormalities in the abdomen and pelvis, in particular no evidence of obstruction is seen. A irspace opacities in the right greater than left lower lobes is concerning for aspiration/pneumonia. ACT 112: Negative or not required by law. Electronically signed by: Shaw Bolaños M.D. 03/20/2022 10:16 AM
[2022-03-20] MEDS ORDERED: AMOXICILLIN/CLAVULANATE 875 MG TAB PO ONE (11:08)
[2022-03-20] MEDS ORDERED: SODIUM CHLORIDE 0.9% 1000ML 500 ML IV ONE (11:08)
--- NOTE | 2022-03-20 11:22 | XRay Report ---
XR chest 1V portable CLINICAL HISTORY: ?pna TECHNIQUE: Single frontal radiograph of the chest was obtained. Comparison: Comparison is made to chest radiograph 08/25/2021 FINDINGS: No lines and tubes are seen. Cardiomegaly is noted. Airspace opacity is seen in the left upper lobe a nd right mid and lower lungs. There is prominence of the pulmonary vasculature. No evidence of pleura l effusion or pneumothorax. IMPRESSION: Multifocal airspace opacities may represent atelectasis, pneumonia, and/or aspiration. ACT 112: Negative or not required by law. Electronically signed by: Shaw Bolaños M.D. 03/20/2022 11:21 AM
[2022-03-20] MEDS ORDERED: AZITHROMYCIN 250 MG TAB PO ONE (12:50)
[2022-03-20] MEDS ORDERED: ALBUT/IPRATROP 3MG/0.5MG NEB 3 ML VIAL NEB PRN (15:16)
[2022-03-20] MEDS ORDERED: ACETAMINOPHEN 325 MG TAB PO PRN (15:16)
[2022-03-20] MEDS ORDERED: DEXTROSE 50% 50 ML SYRINGE IV PRN (15:16)
[2022-03-20] MEDS ORDERED: GLUCAGON FOR INJ 1 MG VIAL SQ PRN (15:16)
[2022-03-20] MEDS ORDERED: GLUCOSE 10 TABS/TUBE PO PRN (15:16)
[2022-03-20] MEDS ORDERED: GLUCOSE 40% GEL 15 GM TUBE PO PRN (15:16)
[2022-03-20] MEDS ORDERED: oxyCODONE HCL IR 5 MG TAB (IMMEDIATE RELEASE) PO PRN (15:16)
[2022-03-20] MEDS ORDERED: ONDANSETRON INJ 2 MG/ML 2 ML VIAL IV PRN (15:16)
[2022-03-20] MEDS ORDERED: CARBOHYDRATES FOR HYPOGLYCEMIA PO PRN (15:16)
[2022-03-20] MEDS ORDERED: PHARMACY GLYCEMIC MGMT CONSULT PRN (15:16)
[2022-03-20 15:19] LABS: Appearance Urine Clear (Clear); Bilirubin Urine Negative (Negative); Blood Urine Negative (Negative); Cast Urine Automated 0 /lpf (0-5); Color Urine Yellow; Epithelial Cell Urine Auto >30 /lpf (0-5); Glucose Urine UA Negative (Negative); Ketones Urine Negative (Negative); Leukocyte Esterase Urine Negative (Negative); Nitrite Urine Negative (Negative); Protein Urine 1+ (Negative); RBC Urine Automated 0-4 /hpf (0-4); Specific Gravity Urine 1.015 (1.000-1.030); Urobilinogen Urine Negative (Negative)
[2022-03-20 15:47] LABS: Bacteria Urine Automated 1+ (Negative)
--- NOTE | 2022-03-20 16:06 | History & Physical Report ---
Date of Service March 20, 2022 Assessment & Plan (1) Multifocal pneumonia: Plan: Admit to [facility] Patient presenting from home with reports of vomiting and generalized weakness In the ED, underwent CT ABD/pelvis for further evaluation due to vomiting, incidentally was found to have airspace opacities in the right greater than left lower lobes concerning for aspiration/pneumonia Likely aspiration due to vomiting Saturating well on room air WBC 13.5K, procalcitonin 0.09 S/p p.o. azithromycin and Augmentin in the ED. Continue with Augmentin only Pulmonary toilet with as needed nebs, Mucinex, flutter valve, incentive spirometer (2) Weakness: Plan: Generalized weakness due to illness PT/OT evals (3) Vomiting: (4) Hiatal hernia: Plan: Patient reports intermittent episodes of vomiting over the past few months Noted to have moderate to large hiatal hernia on CT ABD/pelvis -- otherwise unremarkable for acute finding Recommend outpatient GI and/or surgery evaluation (5) CAD (coronary artery disease): Plan: Appears stable, no reports of chest pain Continue ASA, prasugrel, beta-joanna, statin, nitrate (6) Chronic systolic CHF (congestive heart failure): Plan: Appears euvolemic Continue home dose of furosemide, beta-joanna, LIDA EF 60% on echo 06/2021 (7) CKD (chronic kidney disease), stage III: Plan: Baseline creat runs in the low to mid 1s Creat 1.4 today Continue to monitor, avoid nephrotoxic agents when able (8) Osteoarthritis: Plan: Steroid-dependent, continue home dose of prednisone (9) DM type 2 (diabetes mellitus, type 2): Plan: Hgb A1c 8.6 11/2021 Glycemic pharmacy consulted (10) Fibromyalgia: Plan: Continue home meds (11) DVT prophylaxis: Plan: SQ heparin Admission and Anticipated Discharge Date Admission Date: March 20, 2022 History of Present Illness Chief Complaint: Vomiting, generalized weakness Primary Care Provider: Bartolome Villa DO 71-year-old female with PMH DM type II, dyslipidemia, CAD, bicuspid aortic valve with moderate aortic valve stenosis, chronic systolic CHF, CKD stage III, osteoarthritis, fibromyalgia, DEREJE 3, and other problems listed below who presents to the ED for evaluation of vomiting and generalized weakness. Patient reports she had an episode of vomiting this morning and felt generally weak. When her son found out she was having the symptoms, he encouraged her to be evaluated in the ED. Patient reports that she has been having episodes of vom iting over the past few months. Reports that it happens at least once weekly and typically occurs in the morning. Also notes that having a meal late the previous evening will sometimes cause the vomiting. During the same duration, patient also notes intermittent loose stools. Patient denies hematemesis or coffee-ground emesis, bright red bleeding per rectum or dark tarry stools. No associated abdominal pain. Denies any other recent illnesses, fevers, chills. Patient reports she currently feels generally fatigued. No chest pain or shortness of breath. Denies cough or sputum production. No lightheadedness, dizziness, diaphoresis, syncopal events. Denies urinary symptoms. In the ED, CT ABD/pelvis was performed that was negative for acute intra-abdominal findings --does show a moderate to severe hiatal hernia. Incidentally Airspace opacities in the right greater than left lower lobes is concerning for aspiration/pneumonia was also noted on the CT ABD/pelvis. Patient is saturating well on room air. Labs show WBC 13.5K, otherwise unremarkable/at patient's baseline. Patient was given IVF, p.o. Augmentin, p.o. azithromycin. Discharge was going to be arranged however patient's son felt as though she was too weak to return home. Allergies Allergy/AdvReac Type Severity Reaction Status Date / Time niacin Allergy Severe HOT/BURNING Verified 08/25/21 12:45 FEELING Iodinated Contrast Media Allergy Intermediate ITCHING Verified 08/25/21 12:45 WITH IVP DYE sitagliptin AdvReac Severe PANCREATITI Verified 08/25/21 12:45 S Home Medications Medication Instructions Recorded Confirmed Type amlodipine 5 mg tablet 5 mg PO QAM 08/22/18 03/20/22 History famotidine 20 mg tablet 20 mg PO QPM 08/22/18 03/20/22 History furosemide 20 mg tablet 20 mg PO UD 08/22/18 03/20/22 History metoprolol succinate 100 mg 100 mg PO QPM 08/22/18 03/20/22 History tablet,extended release 24 hr nitroglycerin 0.4 mg sublingual 0.4 mg SUBLINGUAL UD PRN 08/22/18 03/20/22 History tablet omeprazole 40 mg capsule,delayed 40 mg PO DAILYBB 08/22/18 03/20/22 History release prasugrel 10 mg tablet 10 mg PO QAM 08/22/18 03/20/22 History duloxetine 60 mg capsule,delayed 60 mg PO QAM 11/01/18 03/20/22 History release (Cymbalta) insulin NPH isoph U-100 human 100 40 unit SUBCUT BIDM 04/05/19 03/20/22 History unit/mL subcutaneous suspension (Novolin N NPH U-100 Insulin isophane) insulin aspart U-100 100 unit/mL 1 sliding scale dose SUBCUT 05/30/19 03/20/22 History subcutaneous solution (Novolog USEASDIRECTD PRN U-100 Insulin aspart) gabapentin 300 mg capsule 300 mg PO QAM 11/22/19 03/20/22 History (Neurontin) aspirin 81 mg tablet,delayed 81 mg PO QAM 09/27/20 03/20/22 History release tramadol 100 mg tablet,extended 100 mg PO BID 09/27/20 03/20/22 History release 24 hr tramadol 50 mg tablet 50 mg PO Q6 PRN 09/27/20 03/20/22 History oxycodone 5 mg tablet 5 mg PO Q4H PRN #12 tab 04/07/21 03/20/22 Rx rosuvastatin 40 mg tablet 40 mg PO PM 04/16/21 03/20/22 History gabapentin 300 mg capsule 600 mg PO QPM 05/01/21 03/20/22 History prednisone 5 mg tablet 5 mg PO DAILY #7 tab 05/02/21 03/20/22 Rx albuterol sulfate 90 mcg/actuation 2 puff INHALATION Q4 PRN 08/25/21 03/20/22 History aerosol inhaler diclofenac sodium 1 % topical gel 2 g TOPICAL QID PRN 08/25/21 03/20/22 History isosorbide mononitrate 30 mg 30 mg PO DAILY 08/25/21 03/20/22 History tablet,extended release 24 hr lisinopril 10 mg tablet 10 mg PO DAILY 03/20/22 03/20/22 History metformin 500 mg tablet,extended 1,000 mg PO BID 03/20/22 03/20/22 History release 24 hr Past Med/Surg History Medical History (Updated 03/20/22 @ 16:00 by TU Chou) Anemia Aortic stenosis Moderate aortic stenosis present (MG 18.6, VERONIQUE 0.88) per 05/29/19 DSE; possible bicuspid AV per 12/2018* CAD (coronary artery disease) Aggressive atherosclerotic coronary disease s/p multivessel coronary intervention 2006 receiving drug-eluting stents to the mid and distal right coronary artery as well as proximal left circumflex. Late acute stent thrombosis August 2011 in the setting of Aspirin and P lavix withdrawal, treated with drug-eluting Xience stent to the proximal circumflex marginal and right coronary arteries. Repeat stent thrombosis April 2015, treated with drug-eluting stent to the pro ximal and mid right coronary artery Carotid artery stenosis Chronic deep vein thrombosis (DVT) Per records dating back to 2015; patient denies Chronic kidney disease Chronic systolic CHF (congestive heart failure) CKD (chronic kidney disease), stage III Confusion DM type 2 (diabetes mellitus, type 2) Fibromyalgia Hiatal hernia History of difficult intubation Hx glidescope intubation: 08/24/16: Left TKA: Glidescope #3, ETT 7.0 + PNB at [facility] Hx of sciatica Hypoxia Leukocytosis Low back pain b/l LE radiculopathy Myocardial Infarction X3- /2014 Osteoarthritis Osteoarthritis of left knee Pneumonia DEREJE III (vulvar intraepithelial neoplasia III) Weakness Surgical History History of appendectomy History of cardiac cath X3 (2006, 2010, 2014)- TOTAL 5 CARDIAC STENTS History of lumbar fusion History of total knee arthroplasty RIGHT Family History Father Heart disease Social History Smoking Status: Former smoker Tobacco Type: Cigarettes Smoking End Date: 2014; Second Hand Exposure: Yes; Tobacco Cessation Education Requested by Patient: No Hx Alcohol Use: No Hx Substance Use: No Preferred Language: Syriac Communication Ability: Effective Visual Impairment: No Limitations Hearing Ability: Normal Cook Chili Required: No Beliefs That Will Affect Care: None marital status: Current Living Situation: Spouse Other Information That Helps Us Care for You: No Feels Safe at Home: Yes Safety Concerns: Feels Safe At This Time Assistive Devices: Cane Assistive Devices Comment: sometimes when walking outside Review of Systems Review of Systems: ROS per HPI, all other systems reviewed and negative Physical Exam Constitutional: WD/WN, vitals as above Observed patient ambulate to bathroom independently Eyes: PERRL, conjunctivae normal, anicteric sclerae ENMT: external ear and nose normal, oropharynx normal Respiratory: normal respiratory effort; no respiratory distress Ausc ultation: + diminished lung sounds Cardiovascular: Rate/Rhythm: regular rate and regular rhythm Heart Sounds: + murmur (Grade 3/6, systolic) Vessels: normal peripheral pulses Extremities: no edema Gastrointestinal (Abdomen): normal bowel sounds, soft, nontender, no hepatosplenomegaly Musculoskeletal: no cyanosis or clubbing, extremities motor strength 5/5 Skin: no rashes, warm and dry Neurologic: PERRL, EOMI, accommodation nl, no face palsy, no dysarthria Psychiatric: A+Ox3, euthymic affect Results & Data Results & Data ([facility]) Vital Signs (Past 12 Hours) Vital Signs Temp Pulse Pulse Resp BP BP Pulse Ox 03/20/22 15:00 121/71 94 03/20/22 14:31 123/104 H 91 03/20/22 14:30 92 03/20/22 14:24 61 18 138/69 93 03/20/22 14:00 75 19 03/20/22 13:31 75 24 126/89 03/20/22 13:30 73 26 H 03/20/22 13:00 70 20 130/74 92 03/20/22 12:30 67 19 145/56 H 93 03/20/22 12:00 68 21 132/56 L 93 03/20/22 11:30 68 23 135/63 03/20/22 11:01 73 21 116/58 L 03/20/22 10:00 74 18 143/62 H 95 03/20/22 08:31 37.5 C 79 18 143/62 H 97 Laboratory Results Short CBC 03/20/22 Range/Units 08:35 WBC 13.51 H (4.8-10.8) K/uL Hgb 12.2 (12.0-16.0) g/dL Hct 38.7 (37-47) % Plt Count 363 (130-400) K/uL BMP 03/20/22 08:35 Sodium 139 Potassium 3.8 Chloride 108 H Carbon Dioxide 23 BUN 30 H Creatinine 1.47 H Glucose 127 H Calcium 8.3 L Liver Function 03/20/22 Range/Units 08:35 Total Bilirubin 0.8 (0.2-1.0) mg/dl AST 12 L (13-39) U/L ALT 12 (7-52) U/L Alkaline Phosphatase 45 (34-104) U/L Albumin 3.6 (3.4-5.0) gm/dl Urine 03/20/22 Range/Units 14:24 Urine Color Yellow Urine Appearance Clear (Clear) Urine pH 7.0 (4.5-7.5) Ur Specific [place] 1.015 (1.000-1.030) Urine Protein 1+ H (Negative) Urine Glucose (UA) Negative (Negative) Diagnostic Findings Abdomen/Pelvis CT 03/20/22 08:44 CT abd pelvis wo con CLINICAL HISTORY: Intermittent abdominal pain and nausea vomiting TECHNIQUE: Helical axial images of the abdomen and pelvis were obtained. Automated dose lowering techniques and/or adjustment according to patient size were utilized for this exam. This exam was performed without intravenous contrast. CT DOSE: 526.95 mGy.cm COMPARISON: Comparison is made to CT abdomen pelvis 11/29/2013 FINDINGS: Lower chest: Airspace opacities are seen in the right greater than left lung base. Cardiomegaly is seen. Liver: Unremarkable. No focal lesions are seen. Gallbladder and biliary tree: No calcified gallstones. Normal caliber wall. No intra- or extrahepatic biliary ductal dilation. Pancreas: Unremarkable, no focal lesions. Spleen: Unremarkable. Adrenals: Unremarkable. Kidneys and ureters: Focal scarring is seen in the left kidney superior pole. Bladder: Unremarkable. Reproductive organs: Unremarkable. Bowel: Patient is status post appendectomy. There is a moderate to large hiatal hernia. Lymph nodes Retroperitoneal: Unremarkable. Mesenteric: Unremarkable. Pelvic: Unremarkable. Peritoneum: Normal. Vessels: Atherosclerotic calcifications are seen. Abdominal wall: A fat-containing umbilical hernia is seen. Bones: Degenerative changes in the visualized spine. Posterior fixation hardware seen at L4-L5. Grade 1 anterolisthesis is seen at L4-L5 and L5-S1. IMPRESSION: No acute abnormalities in the abdomen and pelvis, in particular no evidence of obstruction is seen. Airspace opacities in the right greater than left lower lobes is concerning for aspiration/pneumonia. ACT 112: Negative or not required by law. Electronically signed by: Shaw Bolaños M.D. 03/20/2022 10:16 AM Chest X-Ray 03/20/22 11:04 XR chest 1V portable CLINICAL HISTORY: ?pna TECHNIQUE: Single frontal radiograph of the chest was obtained. Comparison: Comparison is made to chest radiograph 08/25/2021 FINDINGS: No lines and tubes are seen. Cardiomegaly is noted. Airspace opacity is seen in the left upper lobe and right mid and lower lungs. There is prominence of the pulmonary vasculature. No evidence of pleural effusion or pneumothorax. IMPRESSION: Multifocal airspace opacities may represent atelectasis, pneumonia, and/or aspiration. ACT 112: Negative or not required by law. Electronically signed by: Shaw Bolaños M.D. 03/20/2022 11:21 AM Code Status & VTE Plan Code Status Patient is a full code as per my discussion with her. Patient states that her , Lillian, would be her decision-maker in the event she were to be unable to. VTE Prophylaxis Plan VTE Prophylaxis will be ordered: Yes Supervising Physician Co-Signing Physician Notes Patient seen and examined by me, care coordinated with Isela Paredes NP, please refer to her note above for further detail. 71 yo F PMH DM type II, dyslipidemia, CAD, bicuspid aortic valve with moderate aortic valve stenosis, chronic systolic CHF, CKD stage III, osteoarthritis, fibromyalgia, who presents to the ED for evaluation of vomiting and generalized weakness. Patient reported emesis for at least couple of months, about once weekly. In the ED CT abdomen pelvis was obtained, showed moderate to severe hiatal hernia, in addition incidentally airspace opacities in the right greater than left lower lobes concerning for aspiration/pneumonia. Patient reports being evaluated before for hiatal hernia, reports having endoscopy done in the past. She did not follow-up with GI in a while. Denies fevers chills, hematemesis, denies cough or sputum production. Currently patient is resting in bed, in no acute distress. She is awake alert able to answer questions appropriately. She is breathing comfortably on room air. Lung sounds are clear to auscultation. No wheezing noted. Abdomen is soft nontender nondistended. There is no lower extremity edema appreciated. Skin is warm and dry. Plan to continue Augmentin, provide IV fluids, observe overnight. MD Elver
[2022-03-20] MEDS ORDERED: MoRPHine SULFATE 4 MG/ML 1 ML CARP\\VIAL IV ONE (16:29)
[2022-03-20] MEDS ORDERED: INSULIN HUMAN NPH SC ONE ×2 (17:00→17:30)
[2022-03-20] MEDS ORDERED: AMOXICILLIN/CLAVULANATE 875 MG TAB PO SCH (17:00)
[2022-03-20] MEDS: HEPARIN SOD 5,000 UNIT/0.5 ML VIAL SQ SCH ×2 (17:32→23:39)
--- NOTE | 2022-03-20 17:41 | Pharmacy Report ---
Pharmacy Glycemic Short Note 2 - Date of Service March 20, 2022 - Glycemic Short BSG Results (Last 24 hours): 03/20/22 03/20/22 08:35 16:56 Glucose 127 H POC Glucose 125 H OUTPATIENT ANTIDIABETIC REGIMEN: * NPH 40 units SQ BID, Novolog 8-12 units TID with meals, metformin * A1c 8.2% 05/02/21 - A1c ordered ASSESSMENT: * Zaina is a 71 yo diabetic admitted with weakness and vomiting. She is being treated for pneumonia * Patient takes about 110 units of SQ insulin as an outpatient. A1c ordered. * Patient reports she last administered insulin 03/19 PM (NPH 40 units + Novolog 3 units). Despite missing her morning dose of NPH, her BSG at dinnertime resulted at 125 mg/dL. RN reports that she is not eating due to nausea. Based on this, I will drastically decrease her basal insulin doses. * Once patient is eating well, novolog CF/CR may need tightened (CF/CR 15/5 calculated based on home usage) PLAN FOR INPATIENT GLYCEMIC CONTROL: * Hold outpatient oral diabetes medications * Basal insulin * NPH 20 units SQ tonight - reassess further dosing in AM * Bolus insulin * NovoLog per scale ACHS or Q6hrs while NPO * Goal Range: Low 100 mg/dL - High 140 mg/dL * Correction Factor: 20 mg/dL/unit * Nutritional / Prandial insulin per carb ratio of 1 unit per 7 grams CHO consumed
[2022-03-20] MEDS: traMADol HCL 50 MG TABLET PO SCH ×2 (18:08→23:39)
[2022-03-20] MEDS: INSULIN ASPART PER UNIT SC SCH ×2 (18:09→20:57)
[2022-03-20] MEDS: GABAPENTIN 300 MG CAP PO SCH (20:59)
[2022-03-20] MEDS ORDERED: INSULIN GLARGINE SOLOSTAR 100 UNITS/ML 3 ML PEN SC SCH (21:00)
[2022-03-20] MEDS: guaiFENesin 600 MG TABCR PO SCH (21:00)
[2022-03-20] MEDS: METOPROLOL SUCC 50MG EXT REL TAB PO SCH (21:00)
[2022-03-20] MEDS: FAMOTIDINE 20 MG TAB PO SCH (21:00)
[2022-03-20] MEDS: ROSUVASTATIN CALCIUM 20 MG TAB PO SCH (21:00)
[2022-03-20] MEDS: AMPICILLIN/SULBACTAM SOD 3,000 MG in 0.9 % SODIUM CHLORIDE 100 ML IV SCH (21:44)
[2022-03-21] MEDS: AMPICILLIN/SULBACTAM SOD 3,000 MG in 0.9 % SODIUM CHLORIDE 100 ML IV SCH ×4 (03:29→20:38)
[2022-03-21] MEDS: PANTOprazole 40 MG TAB PO SCH (05:38)
[2022-03-21] MEDS: traMADol HCL 50 MG TABLET PO SCH ×3 (05:38→17:39)
[2022-03-21] MEDS: HEPARIN SOD 5,000 UNIT/0.5 ML VIAL SQ SCH ×3 (05:38→20:43)
[2022-03-21 07:12] LABS: Hematocrit (blood only) 38.2 % (37-47); Hemoglobin 11.9 g/dL (12.0-16.0); Mean Corpuscular Hemoglobin 27.5 pg (25-34); Mean Corpuscular Hgb Conc 31.2 g/dL (32-36); Mean Corpuscular Volume 88.2 fL (80-100); Mean Platelet Volume 9.4 fL (7.4-10.4); Platelet Count 308 K/uL (130-400); RDW Coefficient of Variation 16.4 % (11.5-14.5); RDW Standard Deviation 53.4 fL (36.4-46.3); Red Blood Count 4.33 M/uL (4.2-5.4); White Blood Count 9.02 K/uL (4.8-10.8)
[2022-03-21 07:34] LABS: Calcium 8.3 mg/dl (8.5-10.1); Creatinine Clr Calc Pharmacy 59.5 ml/min; Est GFR (African American) 66.1 ml/min; Phosphorus 3.2 mg/dl (2.5-4.9)
[2022-03-21] MEDS: ISOSORBIDE MONO EXTENDED REL 30 MG TABCR PO SCH (08:34)
[2022-03-21] MEDS: predniSONE 5 MG TAB PO SCH (08:34)
[2022-03-21] MEDS: guaiFENesin 600 MG TABCR PO SCH ×2 (08:34→20:42)
[2022-03-21] MEDS: lisinopril 10 MG TAB PO SCH (08:34)
[2022-03-21] MEDS: amLODIPine BESYLATE 5 MG TAB PO SCH (08:35)
[2022-03-21] MEDS: GABAPENTIN 300 MG CAP PO SCH ×2 (08:35→20:41)
[2022-03-21] MEDS: PRASugrel TAB 10 MG TAB PO SCH (08:35)
[2022-03-21] MEDS: ASPIRIN 81 MG ECTAB PO SCH (08:35)
[2022-03-21] MEDS: DULoxetine HCL 60 MG CAP PO SCH (08:36)
[2022-03-21] MEDS: INSULIN ASPART PER UNIT SC SCH ×4 (08:41→21:00)
[2022-03-21] MEDS ORDERED: FUROSEMIDE 20 MG TAB PO SCH (09:00)
--- NOTE | 2022-03-21 12:19 | Electrocardiogram Report ---
Test Reason : Blood Pressure : / mmHG Vent. Rate : 067 BPM Atrial Rate : 067 BPM P-R Int : 140 ms QRS Dur : 094 ms QT Int : 414 ms P-R-T Axes : 021 009 033 degrees QTc Int : 437 ms Normal sinus rhythm Possible Inferior infarct (cited on or before 01-MAY-2021) Abnormal ECG When compared with ECG of 20-MAR-2022 09:01, (unconfirmed) No significant change was found Confirmed by Shoaib Harris ([id number]) on 03/21/2022 12:19:02 PM Referred By: REFERRED SELF Confirmed By:Jonatan Harris
--- NOTE | 2022-03-21 12:22 | Electrocardiogram Report ---
Test Reason : Blood Pressure : / mmHG Vent. Rate : 074 BPM Atrial Rate : 074 BPM P-R Int : 134 ms QRS Dur : 098 ms QT Int : 388 ms P-R-T Axes : 006 007 069 degrees QTc Int : 430 ms Normal sinus rhythm Possible Inferior infarct , age undetermined Abnormal ECG When compared with ECG of 25-AUG-2021 11:31, Nonspecific T wave abnormality now evident in Lateral leads Confirmed by Shoaib Harris ([id number]) on 03/21/2022 12:22:51 PM Referred By: REFERRED SELF Confirmed By:Jonatan Harris
--- NOTE | 2022-03-21 13:42 | Pharmacy Report ---
Pharmacy Glycemic Short Note 2 - Date of Service March 21, 2022 - Glycemic Short BSG Results (Last 24 hours): 03/20/22 03/20/22 03/21/22 16:56 20:49 06:37 Glucose 96 POC Glucose 125 H 83 03/21/22 03/21/22 08:11 12:46 Glucose POC Glucose 111 H 169 H OUTPATIENT ANTIDIABETIC REGIMEN: * NPH 40 units SQ BID, Novolog 8-12 units TID with meals, metformin * A1c 8.2% 05/02/21 - updated A1c pending ASSESSMENT: 03/21/22 * Blood sugars at goal, held AM NPH this morning to ensure patient would be eating today, patient tolerating diet * Resume NPH with dinner, on scale, no further insulin changes at this time * Patient on IV Unasyn for pneumonia 03/20/22 * Zaina is a 71 yo diabetic admitted with weakness and vomiting. She is being treated for pneumonia * Patient takes about 110 units of SQ insulin as an outpatient. A1c ordered. * Patient reports she last administered insulin 03/19 PM (NPH 40 units + Novolog 3 units). Despite missing her morning dose of NPH, her BSG at dinnertime resulted at 125 mg/dL. RN reports that she is not eating due to nausea. Based on this, I will drastically decrease her basal insulin doses. * Once patient is eating well, novolog CF/CR may need tightened (CF/CR 15/5 calculated based on home usage) PLAN FOR INPATIENT GLYCEMIC CONTROL: * Hold outpatient oral diabetes medications * Basal insulin * NPH 0-15 units SQ BID with meals starting tonight with dinner (0 units BSG < 90, 10 units BSG 90-140, 15 units BSG > 140) * Bolus insulin * NovoLog per scale ACHS or Q6hrs while NPO * Goal Range: Low 100 mg/dL - High 140 mg/dL * Correction Factor: 20 mg/dL/unit * Nutritional / Prandial insulin per carb ratio of 1 unit per 7 grams CHO consumed
--- NOTE | 2022-03-21 17:23 | Hospitalist Progress Note ---
Date of Service March 21, 2022 Assessment & Plan (1) Multifocal pneumonia: Plan: Admitted to [facility] Patient presenting from home with reports of vomiting and generalized weakness In the ED, underwent CT ABD/pelvis for further evaluation due to vomiting, incidentally was found to have airspace opacities in the right greater than left lower lobes concerning for aspiration/pneumonia Likely aspiration due to vomiting Saturating well on room air WBC 13.5K, procalcitonin 0.09 S/p p.o. azithromycin and Augmentin in the ED. Continued with Unasyn, due to patient's emesis. When emesis controlled, switch to p.o. Augmentin. Pulmonary toilet with as needed nebs, Mucinex, flutter valve, incentive spirometer Frequent loose stools -Patient reports having loose stools at home for about a month at least -Overnight frequency of loose stools increased all -We will obtain stool PCR panel (2) Weakness: Plan: Generalized weakness due to illness PT/OT evals (3) Vomiting: (4) Hiatal hernia: Plan: Patient reports intermittent episodes of vomiting over the past few months Noted to have moderate to large hiatal hernia on CT ABD/pelvis -- otherwise unremarkable for acute finding Recommend outpatient GI and/or surgery evaluation (5) CAD (coronary artery disease): Plan: Appears stable, no reports of chest pain Continue ASA, prasugrel, beta-joanna, statin, nitrate (6) Chronic systolic CHF (congestive heart failure): Plan: Appears euvolemic Continue home dose of furosemide, beta-joanna, LIDA EF 60% on echo 06/2021 (7) CKD (chronic kidney disease), stage III: Plan: Baseline creat runs in the low to mid 1s Creat 1.0 today Continue to monitor, avoid nephrotoxic agents when able (8) Osteoarthritis: Plan: Steroid-dependent, continue home dose of prednisone (9) DM type 2 (diabetes mellitus, type 2): Plan: Hgb A1c 8.6 11/2021 Glycemic pharmacy consulted (10) Fibromyalgia: Plan: Continue home meds (11) DVT prophylaxis: Plan: SQ heparin Admission and Anticipated Discharge Date Admission Date: March 20, 2022 Subjective Patient seen in follow-up of nausea vomiting, pneumonia Reports having loose stools, now more frequent overnight. However reported loose stools for past month. Denies fevers, chills, chest pain, shortness of breath, also denies any significant abdominal pain. She is breathing comfortably on room air, denies any significant cough. Stool PCR ordered Review of Systems Review of Systems: All systems reviewed & are unremarkable except as noted in Subjective Physical Exam Physical Exam: Constitutional:L WD/WN, vitals as a kwabena(Observed pat ient ambulate to b athroom independen y) Eyes: PERRL, EOMI, conju nctivae normal, an icteric sclerae ENMT: external ear and n ose normal, oropha rynx normal Respiratory: normal respiratory effort; no respir atory distress Au scultation: + dimi nished lung sounds Cardiovascular:L Rate/Rhythm: regul ar rate and regula r rhythm Heart So unds: + murmur (Gr travis 3/6, systolic) Extremities: no e adama Gastrointestinal ( Abdomen): normal bowel sound s, soft, nontender Musculoskeletal: extremities motor strength 5/5 Skin: no rashes, warm an d dry Neurologic: PERRL, EOMI, no fa ce palsy, no dysar thria Psychiatric: A+Ox3, euthymic af fect Results & Data Results & Data ([facility]) Vital Signs (Past 12 Hours) Vital Signs Temp Pulse Resp BP Pulse Ox 03/21/22 16:11 36.7 C 58 L 16 119/67 93 03/21/22 08:28 36.7 C 59 L 16 135/73 91 Laboratory Results 03/21/22 03/21/22 03/21/22 Range/Units 16:48 12:46 08:11 WBC (4.8-10.8) K/uL RBC (4.2-5.4) M/uL Hgb (12.0-16.0) g/dL Hct (37-47) % MCV (80-100) fL MCH (25-34) pg MCHC (32-36) g/dL RDW Std Deviation (36.4-46.3) fL RDW Coeff of Jovana (11.5-14.5) % Plt Count (130-400) K/uL MPV (7.4-10.4) fL Sodium (136-145) mmol/L Potassium (3.5-5.1) mmol/L Chloride (98-107) mmol/L Carbon Dioxide (21-32) mmol/L Anion Gap (3-11) BUN (6-23) mg/dl Creatinine (0.6-1.2) mg/dl Est Cr Clr Drug Dosing ml/min Est GFR ( Amer) ml/min Est GFR (Non-Af Amer) ml/min BUN/Creatinine Ratio (10-20) Glucose (70-99(Fasting)) mg/dl POC Glucose 131 H 169 H 111 H (70-99) mg/dl Estimat Average Glucose Hemoglobin A1c Calcium (8.5-10.1) mg/dl Phosphorus (2.5-4.9) mg/dl Magnesium (1.7-2.4) mg/dl Hepatitis C Ab (EIA) Hep C Ab Signal/Cutoff 03/21/22 03/21/22 03/21/22 Range/Units 06:37 06:37 06:37 WBC 9.02 (4.8-10.8) K/uL RBC 4.33 (4.2-5.4) M/uL Hgb 11.9 L (12.0-16.0) g/dL Hct 38.2 (37-47) % MCV 88.2 (80-100) fL MCH 27.5 (25-34) pg MCHC 31.2 L (32-36) g/dL RDW Std Deviation 53.4 H (36.4-46.3) fL RDW Coeff of Jovana 16.4 H (11.5-14.5) % Plt Count 308 (130-400) K/uL MPV 9.4 (7.4-10.4) fL Sodium (136-145) mmol/L Potassium (3.5-5.1) mmol/L Chloride (98-107) mmol/L Carbon Dioxide (21-32) mmol/L Anion Gap (3-11) BUN (6-23) mg/dl Creatinine (0.6-1.2) mg/dl Est Cr Clr Drug Dosing ml/min Est GFR ( Amer) ml/min Est GFR (Non-Af Amer) ml/min BUN/Creatinine Ratio (10-20) Glucose (70-99(Fasting)) mg/dl POC Glucose (70-99) mg/dl Estimat Average Glucose Pending Hemoglobin A1c Pending Calcium (8.5-10.1) mg/dl Phosphorus (2.5-4.9) mg/dl Magnesium (1.7-2.4) mg/dl Hepatitis C Ab (EIA) Pending Hep C Ab Signal/Cutoff Pending 03/21/22 03/20/22 Range/Units 06:37 20:49 WBC (4.8-10.8) K/uL RBC (4.2-5.4) M/uL Hgb (12.0-16.0) g/dL Hct (37-47) % MCV (80-100) fL MCH (25-34) pg MCHC (32-36) g/dL RDW Std Deviation (36.4-46.3) fL RDW Coeff of Jovana (11.5-14.5) % Plt Count (130-400) K/uL MPV (7.4-10.4) fL Sodium 139 (136-145) mmol/L Potassium 4.0 (3.5-5.1) mmol/L Chloride 111 H (98-107) mmol/L Carbon Dioxide 20 L (21-32) mmol/L Anion Gap 8 (3-11) BUN 20 (6-23) mg/dl Creatinine 1.00 D (0.6-1.2) mg/dl Est Cr Clr Drug Dosing 59.5 ml/min Est GFR ( Amer) 66.1 ml/min Est GFR (Non-Af Amer) 57.0 ml/min BUN/Creatinine Ratio 20.0 (10-20) Glucose 96 (70-99(Fasting)) mg/dl POC Glucose 83 (70-99) mg/dl Estimat Average Glucose Hemoglobin A1c Calcium 8.3 L (8.5-10.1) mg/dl Phosphorus 3.2 (2.5-4.9) mg/dl Magnesium 2.0 (1.7-2.4) mg/dl Hepatitis C Ab (EIA) Hep C Ab Signal/Cutoff Medications Administered Current Inpatient Medications Acetaminophen (Acetaminophen 325 Mg Tab) 650 mg PO Q4H PRN PRN Reason: pain/fever Stop: 04/19/22 15:15 Albuterol (Albut/Ipratrop 3mg/0.5mg Neb 3 Ml Vial) 3 ml NEB Q4R PRN; Protocol PRN Reason: shortness of breath Stop: 04/19/22 15:15 Amlodipine Besylate (Amlodipine Besylate 5 Mg Tab) [facility] [place]: 04/20/22 08:59 Last Admin: 03/21/22 08:35 Dose: 5 mg Documented by: Aspirin (Aspirin 81 Mg Ectab) 81 mg PO QAM [facility] Stop: 04/20/22 08:59 Last Admin: 03/21/22 08:35 Dose: 81 mg Documented by: Dextrose (Dextrose 50% 50 Ml Syringe) 25 - 50 ml IV UD PRN; Protocol PRN Reason: Hypoglycemia Protocol Stop: 04/19/22 15:15 Duloxetine HCl (Duloxetine Hcl 60 Mg Cap) 60 mg PO QAM [facility] Stop: 04/20/22 08:59 Last Admin: 03/21/22 08:36 Dose: 60 mg Documented by: Famotidine (Famotidine 20 Mg Tab) 20 mg PO QPM [facility] Stop: 04/19/22 20:59 Last Admin: 03/20/22 21:00 Dose: 20 mg Documented by: Furosemide (Furosemide 20 Mg Tab) 20 mg PO SuTuThSa@0900 [facility] Stop: 04/20/22 08:59 Furosemide (Furosemide 20 Mg Tab) 40 mg PO MoWeFr@0900 [facility] Stop: 04/21/22 08:59 Gabapentin (Gabapentin 300 Mg Cap) [facility] [place] [facility]: 04/20/22 08:59 Last Admin: 03/21/22 08:35 Dose: 300 mg Documented by: Gabapentin (Gabapentin 300 Mg Cap) 600 mg PO QPM [facility] Stop: 04/19/22 20:59 Last Admin: 03/20/22 20:59 Dose: 600 mg Documented by: Glucagon (Glucagon For Inj 1 Mg Vial) 1 mg SQ UD PRN; Protocol PRN Reason: Hypoglycemia Protocol Stop: 04/19/22 15:15 Glucose (Glucose 10 Tabs/Tube) 4 - 8 tabs PO UD PRN; Protocol PRN Reason: Hypoglycemia Protocol Stop: 04/19/22 15:15 Glucose (Glucose 40% Gel 15 Gm Tube) 15 - 30 gm PO UD PRN; Protocol PRN Reason: Hypoglycemia Protocol Stop: 04/19/22 15:15 Guaifenesin (Guaifenesin 600 Mg Tabcr) 600 mg PO Q12 [facility] Stop: 04/19/22 20:59 Last Admin: 03/21/22 08:34 Dose: 600 mg Documented by: Heparin Sodium (Porcine) (Heparin Sod 5,000 Unit/0.5 Ml Vial) 5,000 units SQ Q8 [facility] Stop: 04/19/22 15:59 Last Admin: 03/21/22 14:10 Dose: 5,000 units Documented by: Ampicillin Sodium/Sulbactam Sodium 3,000 mg/ Sodium Chloride 108 mls @ 200 mls/hr IV Q6H [facility]; Protocol Stop: 03/27/22 20:29 Last Infusion: 03/21/22 15:50 Dose: Infused Documented by: Insulin Aspart (Insulin Aspart Per Unit) 0 units SC ACHS [facility] Stop: 04/19/22 16:29 Last Admin: 03/21/22 13:02 Dose: 8 units Documented by: Insulin Human NPH (Insulin Human Nph) 0 units SC BIDM [facility]; Protocol Stop: 04/20/22 16:59 Isosorbide Mononitrate (Isosorbide [place] Extended Rel 30 Mg Tabcr) 30 mg PO DAILY [facility] Stop: 04/20/22 08:59 Last Admin: 03/21/22 08:34 Dose: 30 mg Documented by: Lisinopril (Lisinopril 10 Mg Tab) 10 mg PO DAILY [facility] Stop: 04/20/22 08:59 Last Admin: 03/21/22 08:34 Dose: 10 mg Documented by: Metoprolol Succinate (Metoprolol Succ 50mg Ext Rel Tab) 100 mg PO QPM [facility] Stop: 04/19/22 20:59 Last Admin: 03/20/22 21:00 Dose: 100 mg Documented by: Miscellaneous (Carbohydrates For Hypoglycemia ) 15 - 30 gm PO UD PRN PRN Reason: Hypoglycemia Protocol Stop: 04/19/22 15:15 Miscellaneous Information (Pharmacy Glycemic Mgmt Consult) 1 ea N/A UD PRN; Protocol PRN Reason: Consult Stop: 04/19/22 15:15 Ondansetron HCl (Ondansetron Inj 2 Mg/Ml 2 Ml Vial) 4 mg IV Q6H PRN PRN Reason: Nausea And Vomiting Stop: 04/19/22 15:15 Last Admin: 03/20/22 16:47 Dose: 4 mg Documented by: Oxycodone HCl (Oxycodone Hcl Ir 5 Mg Tab (Immediate Release)) 5 mg PO Q4H PRN PRN Reason: pain Stop: 04/03/22 15:15 Pantoprazole Sodium (Pantoprazole 40 Mg Tab) 40 mg PO DAILYBB [facility] Stop: 04/20/22 06:29 Last Admin: 03/21/22 05:38 Dose: 40 mg Documented by: Prasugrel (Prasugrel Tab 10 Mg Tab) 10 mg PO QAM [facility] Stop: 04/20/22 08:59 Last Admin: 03/21/22 08:35 Dose: 10 mg Documented by: Prednisone (Prednisone 5 Mg Tab) 5 mg PO DAILY [facility] C Stop: 04/20/22 08:59 Last Admin: 03/21/22 08:34 Dose: 5 mg Documented by: Rosuvastatin Calcium (Rosuvastatin Calcium 20 Mg Tab) 40 mg PO PM JUAN C Stop: 04/19/22 20:59 Last Admin: 03/20/22 21:00 Dose: 40 mg Documented by: Tramadol HCl (Tramadol Hcl 50 Mg Tablet) 50 mg PO Q6H JUAN C Stop: 04/19/22 17:59 Last Admin: 03/21/22 11:48 Dose: 50 mg Documented by:
[2022-03-21] MEDS: INSULIN HUMAN NPH SC SCH (17:40)
[2022-03-21] MEDS: ROSUVASTATIN CALCIUM 20 MG TAB PO SCH (20:40)
[2022-03-21] MEDS: FAMOTIDINE 20 MG TAB PO SCH (20:40)
[2022-03-21] MEDS: METOPROLOL SUCC 50MG EXT REL TAB PO SCH (20:42)
[2022-03-21 21:09] LABS: Adenovirus F 40/41 PCR Not Detected (NotDetected); Astrovirus PCR Not Detected (NotDetected); Campylobacter PCR Not Detected (NotDetected); Clostridium diff Toxin A/B PCR Not Detected (NotDetected); Cryptosporidium PCR Not Detected (NotDetected); Cyclospora cayetanensis PCR Not Detected (NotDetected); Entamoeba histolytica PCR Not Detected (NotDetected); Enteroaggregative E.coli(EAEC) Not Detected (NotDetected); Enteropathogenic E.coli (EPEC) Not Detected (NotDetected); Enterotoxigenic E.coli (ETEC) Not Detected (NotDetected); Giardia lamblia PCR Not Detected (NotDetected); Norovirus GI/GII PCR Not Detected (NotDetected); Plesiomonas shigelloides PCR Not Detected (NotDetected); Rotavirus A PCR Not Detected (NotDetected); Salmonella PCR Not Detected (NotDetected); Sapovirus PCR Not Detected (NotDetected); Shiga-like Toxin E.coli (STEC) Not Detected (NotDetected); Shigella/Enteroinvasive E.coli Not Detected (NotDetected); Vibrio cholerae PCR Not Detected (NotDetected); Vibrio species PCR Not Detected (NotDetected); Yersinia enterocolitica PCR Not Detected (NotDetected)
[2022-03-22] MEDS: traMADol HCL 50 MG TABLET PO SCH ×3 (01:10→12:56)
[2022-03-22] MEDS: AMPICILLIN/SULBACTAM SOD 3,000 MG in 0.9 % SODIUM CHLORIDE 100 ML IV SCH ×2 (02:09→07:58)
[2022-03-22] MEDS: HEPARIN SOD 5,000 UNIT/0.5 ML VIAL SQ SCH ×2 (05:58→12:56)
[2022-03-22] MEDS: PANTOprazole 40 MG TAB PO SCH (05:58)
[2022-03-22 07:22] LABS: Estimated Average Glucose 192 mg/dl; Hemoglobin A1C 8.3 % (4.5-5.6)
[2022-03-22] MEDS: predniSONE 5 MG TAB PO SCH (07:58)
[2022-03-22] MEDS: DULoxetine HCL 60 MG CAP PO SCH (07:58)
[2022-03-22] MEDS: PRASugrel TAB 10 MG TAB PO SCH (07:59)
[2022-03-22] MEDS: ISOSORBIDE MONO EXTENDED REL 30 MG TABCR PO SCH (07:59)
[2022-03-22] MEDS: ASPIRIN 81 MG ECTAB PO SCH (08:00)
[2022-03-22] MEDS: GABAPENTIN 300 MG CAP PO SCH (08:00)
[2022-03-22] MEDS: lisinopril 10 MG TAB PO SCH (08:00)
[2022-03-22] MEDS: amLODIPine BESYLATE 5 MG TAB PO SCH (08:00)
[2022-03-22] MEDS: guaiFENesin 600 MG TABCR PO SCH (08:00)
[2022-03-22] MEDS: INSULIN ASPART PER UNIT SC SCH ×2 (09:00→12:56)
[2022-03-22] MEDS: INSULIN HUMAN NPH SC SCH (09:00)
[2022-03-22] MEDS ORDERED: ADVANCED PROBIOTIC 1250 MG CAPSULE PO SCH (09:00)
[2022-03-22] MEDS ORDERED: FUROSEMIDE 20 MG TAB PO SCH (09:00)
[2022-03-22] MEDS ORDERED: LOPERAMIDE HCL 2 MG CAP PO PRN (09:52)
--- NOTE | 2022-03-22 12:32 | Pharmacy Report ---
Pharmacy Glycemic Short Note 2 - Date of Service March 22, 2022 - Glycemic Short BSG Results (Last 24 hours): 03/21/22 03/21/22 03/21/22 12:46 16:48 20:47 POC Glucose 169 H 131 H 137 H 03/22/22 03/22/22 07:55 12:21 POC Glucose 151 H 189 H OUTPATIENT ANTIDIABETIC REGIMEN: * NPH 40 units SQ BID, Novolog 8-12 units TID with meals, metformin * A1c 8.2% 05/02/21 - updated A1c pending ASSESSMENT: 03/22/22 * Stressors stable. On home prednisone 5 mg po daily * BSG's well controlled yesterday despite significant reduction as compared to outpatient doses. A total of 10 units of NPH was administered at dinner. BSG above goal this AM - will slightly increase NPH and split more evenly, similar to home regimen * No change to Novolog for now 03/21/22 * Blood sugars at goal, held AM NPH this morning to ensure patient would be eating today, patient tolerating diet * Resume NPH with dinner, on scale, no further insulin changes at this time * Patient on IV Unasyn for pneumonia 03/20/22 * Zaina is a 71 yo diabetic admitted with weakness and vomiting. She is being treated for pneumonia * Patient takes about 110 units of SQ insulin as an outpatient. A1c ordered. * Patient reports she last administered insulin 6/10 PM (NPH 40 units + Novolog 3 units). Despite missing her morning dose of NPH, her BSG at dinnertime resulted at 125 mg/dL. RN reports that she is not eating due to nausea. Based on this, I will drastically decrease her basal insulin doses. * Once patient is eating well, novolog CF/CR may need tightened (CF/CR 15/5 calculated based on home usage) PLAN FOR INPATIENT GLYCEMIC CONTROL: * Hold outpatient oral diabetes medications * Basal insulin * NPH 0-10 units SQ BID with meals (0 units BSG < 90, 5 units BSG 90-140, 10 units BSG > 140) * Bolus insulin * NovoLog per scale ACHS or Q6hrs while NPO * Goal Range: Low 110 mg/dL - High 140 mg/dL * Correction Factor: 20 mg/dL/unit * Nutritional / Prandial insulin per carb ratio of 1 unit per 7 grams CHO consumed
--- NOTE | 2022-03-22 12:50 | Hospitalist Progress Note ---
Date of Service March 22, 2022 Assessment & Plan (1) Multifocal pneumonia: Plan: Admitted to [facility] Patient presenting from home with reports of vomiting and generalized weakness In the ED, underwent CT ABD/pelvis for further evaluation due to vomiting, incidentally was found to have airspace opacities in the right greater than left lower lobes concerning for aspiration/pneumonia Likely aspiration due to vomiting Saturating well on room air WBC 13.5K, procalcitonin 0.09 S/p p.o. azithromycin and Augmentin in the ED. Continued with Unasyn, due to patient's emesis. Pulmonary toilet with as needed nebs, Mucinex, flutter valve, incentive spirometer Patient is doing much better, plan to discharge on p.o. moxifloxacin. Close PCP follow-up arranged Urine Legionella antigen pending Frequent loose stools -Patient reports having loose stools at home for about a month at least -Overnight frequency of loose stools increased -obtained stool PCR panel -negative Recommend probiotics, increase fiber, can use Imodium, may need outpatient GI follow-up (2) Weakness: Plan: Generalized weakness due to illness PT/OT evals (3) Vomiting: (4) Hiatal hernia: Plan: Patient reports intermittent episodes of vomiting over the past few months Noted to have moderate to large hiatal hernia on CT ABD/pelvis -- otherwise unremarkable for acute finding Recommend outpatient GI and/or surgery evaluation (5) CAD (coronary artery disease): Plan: Appears stable, no reports of chest pain Continue ASA, prasugrel, beta-joanna, statin, nitrate (6) Chronic systolic CHF (congestive heart failure): Plan: Appears euvolemic Continue home dose of furosemide, beta-joanna, LIDA EF 60% on echo 06/2021 (7) CKD (chronic kidney disease), stage III: Plan: Baseline creat runs in the low to mid 1s Creat 1.0 today Continue to monitor, avoid nephrotoxic agents when able (8) Osteoarthritis: Plan: Steroid-dependent, continue home dose of prednisone (9) DM type 2 (diabetes mellitus, type 2): Plan: Hgb A1c 8.6 11/2021 Glycemic pharmacy consulted (10) Fibromyalgia: Plan: Continue home meds (11) DVT prophylaxis: Plan: SQ heparin Admission and Anticipated Discharge Date Admission Date: March 20, 2022 Subjective Patient seen in follow-up of nausea vomiting, pneumonia Today she reports feeling much better. Denies any fevers, chills, cough, chest pain or shortness of breath. Denies any abdominal pain. Reports that she is tolerating diet, no emesis. Review of Systems Review of Systems: All systems reviewed & are unremarkable except as noted in Subjective Physical Exam Physical Exam: Constitutional:L WD/WN, vitals as a kwabena(Observed pat ient ambulate to b athroom independen tly) Eyes: PERRL, EOMI, conju nctivae normal, an icteric sclerae ENMT: external ear and n ose normal, oropha rynx normal Respiratory: normal respiratory effort; no respir atory distress Au scultation: CTAB Cardiovascular:L Rate/Rhythm: regul ar rate and regula r rhythm Heart So unds: + murmur (Gr travis 3/6, systolic) Extremities: no e adama Gastrointestinal ( Abdomen): normal bowel sound s, soft, nontender Musculoskeletal: extremities motor strength 5/5 Skin: no rashes, warm an d dry Neurologic: PERRL, EOMI, no fa ce palsy, no dysar thria Psychiatric: A+Ox3, euthymic af fect Results & Data Results & Data ([facility]) Vital Signs (Past 12 Hours) Vital Signs Temp Pulse Resp BP Pulse Ox 03/22/22 06:50 36.6 C 60 18 159/66 H 96 Laboratory Results 03/22/22 03/22/22 03/21/22 Range/Units 12:21 07:55 20:47 POC Glucose 189 H 151 H 137 H (70-99) mg/dl Estimat Average Glucose mg/dl Hemoglobin A1c (4.5-5.6) % Stl C. cayetanensis PCR (NotDetected) Stool Rotavirus A PCR (NotDetected) Stl Adenov F 40/41 PCR (NotDetected) Stool Astrovirus (PCR) (NotDetected) Stool Campylobacter PCR (NotDetected) Stl C. diff Tox A/B PCR (NotDetected) Stool Cryptosporidium PCR (NotDetected) Stl E.coli Shiga Tox PCR (NotDetected) Stl Enterotoxigenic E PCR (NotDetected) Stool EPEC (PCR) (NotDetected) Stool EAEC (PCR) (NotDetected) Stl E. histolytica PCR (NotDetected) Stool Giardia Lamblia PCR (NotDetected) Stool Salmonella PCR (NotDetected) Stool Sapovirus (PCR) (NotDetected) Stl P. shigelloides PCR (NotDetected) Stl Shigella/EIEC PCR (NotDetected) St Y.enterocolitica PCR (NotDetected) Stool Vibrio (PCR) (NotDetected) Stl Vibrio cholerae PCR (NotDetected) Stl Norovirus GI/GII PCR (NotDetected) 03/21/22 03/21/22 03/21/22 Range/Units 19:41 16:48 12:46 POC Glucose 131 H 169 H (70-99) mg/dl Estimat Average Glucose mg/dl Hemoglobin A1c (4.5-5.6) % Stl C. cayetanensis PCR Not Detected (NotDetected) Stool Rotavirus A PCR Not Detected (NotDetected) Stl Adenov F 40/41 PCR Not Detected (NotDetected) Stool Astrovirus (PCR) Not Detected (NotDetected) Stool Campylobacter PCR Not Detected (NotDetected) Stl C. diff Tox A/B PCR Not Detected (NotDetected) Stool Cryptosporidium PCR Not Detected (NotDetected) Stl E.coli Shiga Tox PCR Not Detected (NotDetected) Stl Enterotoxigenic E PCR Not Detected (NotDetected) Stool EPEC (PCR) Not Detected (NotDetected) Stool EAEC (PCR) Not Detected (NotDetected) Stl E. histolytica PCR Not Detected (NotDetected) Stool Giardia Lamblia PCR Not Detected (NotDetected) Stool Salmonella PCR Not Detected (NotDetected) Stool Sapovirus (PCR) Not Detected (NotDetected) Stl P. shigelloides PCR Not Detected (NotDetected) Stl Shigella/EIEC PCR Not Detected (NotDetected) St Y.enterocolitica PCR Not Detected (NotDetected) Stool Vibrio (PCR) Not Detected (NotDetected) Stl Vibrio cholerae PCR Not Detected (NotDetected) Stl Norovirus GI/GII PCR Not Detected (NotDetected) 03/21/22 Range/Units 06:37 POC Glucose (70-99) mg/dl Estimat Average Glucose 192 mg/dl Hemoglobin A1c 8.3 H (4.5-5.6) % Stl C. cayetanensis PCR (NotDetected) Stool Rotavirus A PCR (NotDetected) Stl Adenov F 40/41 PCR (NotDetected) Stool Astrovirus (PCR) (NotDetected) Stool Campylobacter PCR (NotDetected) Stl C. diff Tox A/B PCR (NotDetected) Stool Cryptosporidium PCR (NotDetected) Stl E.coli Shiga Tox PCR (NotDetected) Stl Enterotoxigenic E PCR (NotDetected) Stool EPEC (PCR) (NotDetected) Stool EAEC (PCR) (NotDetected) Stl E. histolytica PCR (NotDetected) Stool Giardia Lamblia PCR (NotDetected) Stool Salmonella PCR (NotDetected) Stool Sapovirus (PCR) (NotDetected) Stl P. shigelloides PCR (NotDetected) Stl Shigella/EIEC PCR (NotDetected) St Y.enterocolitica PCR (NotDetected) Stool Vibrio (PCR) (NotDetected) Stl Vibrio cholerae PCR (NotDetected) Stl Norovirus GI/GII PCR (NotDetected) Medications Administered Current Inpatient Medications Acetaminophen (Acetaminophen 325 Mg Tab) 650 mg PO Q4H PRN PRN Reason: pain/fever Stop: 04/19/22 15:15 Albuterol (Albut/Ipratrop 3mg/0.5mg Neb 3 Ml Vial) 3 ml NEB Q4R PRN; Protocol PRN Reason: shortness of breath Stop: 04/19/22 15:15 Amlodipine Besylate (Amlodipine Besylate 5 Mg Tab) 5 mg PO QAM [facility] Stop: 04/20/22 08:59 Last Admin: 03/22/22 08:00 Dose: 5 mg Documented by: Aspirin (Aspirin 81 Mg Ectab) 81 mg PO QAM [facility] C Stop: 04/20/22 08:59 Last Admin: 03/22/22 08:00 Dose: 81 mg Documented by: Dextrose (Dextrose 50% 50 Ml Syringe) 25 - 50 ml IV UD PRN; Protocol PRN Reason: Hypoglycemia Protocol Stop: 04/19/22 15:15 Duloxetine HCl (Duloxetine Hcl 60 Mg Cap) 60 mg PO QAM [facility] Stop: 04/20/22 08:59 Last Admin: 03/22/22 07:58 Dose: 60 mg Documented by: Famotidine (Famotidine 20 Mg Tab) 20 mg PO QPM [facility] Stop: 04/19/22 20:59 Last Admin: 03/21/22 20:40 Dose: 20 mg Documented by: Furosemide (Furosemide 20 Mg Tab) 20 mg PO SuTuThSa@0900 [facility] Stop: 04/20/22 08:59 Furosemide (Furosemide 20 Mg Tab) 40 mg PO MoWeFr@0900 [facility] Stop: 04/21/22 08:59 Gabapentin (Gabapentin 300 Mg Cap) 300 mg PO QAM [facility] Stop: 04/20/22 08:59 Last Admin: 03/22/22 08:00 Dose: 300 mg Documented by: Gabapentin (Gabapentin 300 Mg Cap) 600 mg PO QPM [facility] Stop: 04/19/22 20:59 Last Admin: 03/21/22 20:41 Dose: 600 mg Documented by: Glucagon (Glucagon For Inj 1 Mg Vial) 1 mg SQ UD PRN; Protocol PRN Reason: Hypoglycemia Protocol Stop: 04/19/22 15:15 Glucose (Glucose 10 Tabs/Tube) 4 - 8 tabs PO UD PRN; Protocol PRN Reason: Hypoglycemia Protocol Stop: 04/19/22 15:15 Glucose (Glucose 40% Gel 15 Gm Tube) 15 - 30 gm PO UD PRN; Protocol PRN Reason: Hypoglycemia Protocol Stop: 04/19/22 15:15 Guaifenesin (Guaifenesin 600 Mg Tabcr) 600 mg PO Q12 [facility] Stop: 04/19/22 20:59 Last Admin: 03/22/22 08:00 Dose: 600 mg Documented by: Heparin Sodium (Porcine) (Heparin Sod 5,000 Unit/0.5 Ml Vial) 5,000 units SQ Q8 [facility] Stop: 04/19/22 15:59 Last Admin: 03/22/22 05:58 Dose: 5,000 units Documented by: Ampicillin Sodium/Sulbactam Sodium 3,000 mg/ Sodium Chloride 108 mls @ 200 mls/hr IV Q6H [facility]; Protocol Stop: 03/27/22 20:29 Last Infusion: 03/22/22 08:31 Dose: Infused Documented by: Insulin Aspart (Insulin Aspart Per Unit) 0 units SC ACHS [facility] Stop: 04/19/22 16:29 Last Admin: 03/22/22 09:00 Dose: 5 units Documented by: Insulin Human NPH (Insulin Human Nph) 0 units SC BIDM [facility]; Protocol Stop: 04/20/22 16:59 Last Admin: 03/22/22 09:00 Dose: 10 units Documented by: Isosorbide Mononitrate (Isosorbide [place] Extended Rel 30 Mg Tabcr) 30 mg PO DAILY [facility] Stop: 04/20/22 08:59 Last Admin: 03/22/22 07:59 Dose: 30 mg Documented by: Lactobacillus Acidophilus (Advanced Probiotic 1250 Mg Capsule) 2 cap PO DAILY [facility] Stop: 04/21/22 08:59 Last Admin: 03/22/22 08:30 Dose: 2 cap Documented by: Lisinopril (Lisinopril 10 Mg Tab) 10 mg PO DAILY [facility] Stop: 04/20/22 08:59 Last Admin: 03/22/22 08:00 Dose: 10 mg Documented by: Loperamide HCl (Loperamide Hcl 2 Mg Cap) 2 mg PO Q4H PRN PRN Reason: loose stools Stop: 04/21/22 09:51 Metoprolol Succinate (Metoprolol Succ 50mg Ext Rel Tab) 100 mg PO QPM [facility] Stop: 04/19/22 20:59 Last Admin: 03/21/22 20:42 Dose: 100 mg Documented by: Miscellaneous (Carbohydrates For Hypoglycemia ) 15 - 30 gm PO UD PRN PRN Reason: Hypoglycemia Protocol Stop: 04/19/22 15:15 Miscellaneous Information (Pharmacy Glycemic Mgmt Consult) 1 ea N/A UD PRN; Protocol PRN Reason: Consult Stop: 04/19/22 15:15 Ondansetron HCl (Ondansetron Inj 2 Mg/Ml 2 Ml Vial) 4 mg IV Q6H PRN PRN Reason: Nausea And Vomiting Stop: 04/19/22 15:15 Last Admin: 03/20/22 16:47 Dose: 4 mg Documented by: Oxycodone HCl (Oxycodone Hcl Ir 5 Mg Tab (Immediate Release)) 5 mg PO Q4H PRN PRN Reason: pain Stop: 04/03/22 15:15 Last Admin: 03/21/22 22:08 Dose: 5 mg Documented by: Pantoprazole Sodium (Pantoprazole 40 Mg Tab) 40 mg PO DAILYBB [facility] C Stop: 04/20/22 06:29 Last Admin: 03/22/22 05:58 Dose: 40 mg Documented by: Prasugrel (Prasugrel Tab 10 Mg Tab) 10 mg PO QAM JUAN C Stop: 04/20/22 08:59 Last Admin: 03/22/22 07:59 Dose: 10 mg Documented by: Prednisone (Prednisone 5 Mg Tab) 5 mg PO DAILY JUAN C Stop: 04/20/22 08:59 Last Admin: 03/22/22 07:58 Dose: 5 mg Documented by: Rosuvastatin Calcium (Rosuvastatin Calcium 20 Mg Tab) 40 mg PO PM JUAN C Stop: 04/19/22 20:59 Last Admin: 03/21/22 20:40 Dose: 40 mg Documented by: Tramadol HCl (Tramadol Hcl 50 Mg Tablet) 50 mg PO Q6H JUAN C Stop: 04/19/22 17:59 Last Admin: 03/22/22 05:57 Dose: 50 mg Documented by:
--- NOTE | 2022-03-22 13:14 | Discharge Summary ---
Date of Service March 22, 2022 Admission HPI Per Admitting Provider 71-year-old female with PMH DM type II, dyslipidemia, CAD, bicuspid aortic valve with moderate aortic valve stenosis, chronic systolic CHF, CKD stage III, osteoarthritis, fibromyalgia, DEREJE 3, and other problems listed below who presents to the ED for evaluation of vomiting and generalized weakness. Patient reports she had an episode of vomiting this morning and felt generally weak. When her son found out she was having the symptoms, he encouraged her to be evaluated in the ED. Patient reports that she has been having episodes of vomiting over the past few months. Reports that it happens at least once weekly and typically occurs in the morning. Also notes that having a meal late the previous evening will sometimes cause the vomiting. During the same duration, patient also notes intermittent loose stools. Patient denies hematemesis or coffee-ground emesis, bright red bleeding per rectum or dark tarry stools. No associated abdominal pain. Denies any other recent illnesses, fevers, chills. Patient reports she currently feels generally fatigued. No chest pain or shortness of breath. Denies cough or sputum production. No lightheadedness, dizziness, diaphoresis, syncopal events. Denies urinary symptoms. In the ED, CT ABD/pelvis was performed that was negative for acute intra-abdominal findings --does show a moderate to severe hiatal hernia. Incidentally Airspace opacities in the right greater than left lower lobes is concerning for aspiration/pneumonia was also noted on the CT ABD/pelvis. Patient is saturating well on room air. Labs show WBC 13.5K, otherwise unremarkable/at patient's baseline. Patient was given IVF, p.o. Augmentin, p.o. azithromycin. Discharge was going to be arranged however patient's son felt as though she was too weak to return home. Admission Exam Per Admitting Provider Constitutional: WD/WN, vitals as above Observed patient ambulate to bathroom independently Eyes: PERRL, conjunctivae normal, anicteric sclerae ENMT: external ear and nose normal, oropharynx normal Respiratory: normal respiratory effort; no respiratory distress Auscultation: + diminished lung sounds Cardiovascular: Rate/Rhythm: regular rate and regular rhythm Heart Sounds: + murmur (Grade 3/6, systolic) Vessels: normal peripheral pulses Extremities: no edema Gastrointestinal (Abdomen): normal bowel sounds, soft, nontender, no hepatosplenomegaly Musculoskeletal: no cyanosis or clubbing, extremities motor strength 5/5 Skin: no rashes, warm and dry Neurologic: PERRL, EOMI, accommodation nl, no face palsy, no dysarthria Psychiatric: A+Ox3, euthymic affect Principal Diagnosis Vomiting, secondary to hiatal hernia Loose stools Weakness Discharge Exam Constitutional:WD/WN, vitals as above(Observed patient ambulate to bathroom independently) Eyes: PERRL, EOMI, conjunctivae normal, anicteric sclerae ENMT: external ear and nose normal, oropharynx normal Respiratory: normal respiratory effort; no respiratory distress Auscultation: CTAB Cardiovascular:Rate/Rhythm: regular rate and regular rhythm Heart Sounds: + murmur (Grade 3/6, systolic), Extremities: no edema Gastrointestinal (Abdomen): normal bowel sounds, soft, nontender Musculoskeletal:extremities motor strength 5/5 Skin: no rashes, warm and dry Neurologic: PERRL, EOMI, no face palsy, no dysarthria Psychiatric: A+Ox3, euthymic affect Discharge Data Allergies Allergy/AdvReac Type Severity Reaction Status Date / Time niacin Allergy Severe HOT/BURNING Verified 08/25/21 12:45 FEELING Iodinated Contrast Media Allergy Intermediate ITCHING Verified 08/25/21 12:45 WITH IVP DYE sitagliptin AdvReac Severe PANCREATITI Verified 08/25/21 12:45 S Consultations 03/20/22 13:06 ED Decision to Admit Stat Ordered Studies 03/20/22 08:44 CT abd pelvis wo con Stat FINDINGS: Lower chest: Airspace opacities are seen in the right greater than left lung base. Cardiomegaly is seen. Liver: Unremarkable. No focal lesions are seen. Gallbladder and biliary tree: No calcified gallstones. Normal caliber wall. No intra- or extrahepatic biliary ductal dilation. Pancreas: Unremarkable, no focal lesions. Spleen: Unremarkable. Adrenals: Unremarkable. Kidneys and ureters: Focal scarring is seen in the left kidney superior pole. Bladder: Unremarkable. Reproductive organs: Unremarkable. Bowel: Patient is status post appendectomy. There is a moderate to large hiatal hernia. Lymph nodes Retroperitoneal: Unremarkable. Mesenteric: Unremarkable. Pelvic: Unremarkable. Peritoneum: Normal. Vessels: Atherosclerotic calcifications are seen. Abdominal wall: A fat-containing umbilical hernia is seen. Bones: Degenerative changes in the visualized spine. Posterior fixation hardware seen at L4-L5. Grade 1 anterolisthesis is seen at L4-L5 and L5-S1. IMPRESSION: No acute abnormalities in the abdomen and pelvis, in particular no evidence of obstruction is seen. Airspace opacities in the right greater than left lower lobes is concerning for aspiration/pneumonia. Hospital Course (1) Multifocal pneumonia: Admitted to [facility] Patient presenting from home with reports of vomiting and generalized weakness In the ED, underwent CT ABD/pelvis for further evaluation due to vomiting, incidentally was found to have airspace opacities in the right greater than left lower lobes concerning for aspiration/pneumonia Likely aspiration due to vomiting Saturating well on room air WBC 13.5K, procalcitonin 0.09 S/p p.o. azithromycin and Augmentin in the ED. Continued with Unasyn, due to patient's emesis. Pulmonary toilet with as needed nebs, Mucinex, flutter valve, incentive spirometer Patient is doing much better, plan to discharge on p.o. moxifloxacin. Close PCP follow-up arranged Urine Legionella antigen pending Frequent loose stools -Patient reports having loose stools at home for about a month at least -Overnight frequency of loose stools increased -obtained stool PCR panel -negative Recommend probiotics, increase fiber, can use Imodium, may need outpatient GI follow-up (2) Weakness: Generalized weakness due to illness PT/OT evals-recommend to return home (3) Vomiting: (4) Hiatal hernia: Patient reports intermittent episodes of vomiting over the past few months Noted to have moderate to large hiatal hernia on CT ABD/pelvis -- otherwise unremarkable for acute finding Recommend outpatient GI and/or surgery evaluation (5) CAD (coronary artery disease): Appears stable, no reports of chest pain Continue ASA, prasugrel, beta-joanna, statin, nitrate (6) Chronic systolic CHF (congestive heart failure): Appears euvolemic Continue home dose of furosemide, beta-joanna, LIDA EF 60% on echo 06/2021 (7) CKD (chronic kidney disease), stage III: Baseline creat runs in the low to mid 1s Creat 1 Continue to monitor, avoid nephrotoxic agents when able (8) Osteoarthritis: Steroid-dependent, continue home dose of prednisone (9) DM type 2 (diabetes mellitus, type 2): Hgb A1c 8.6 11/2021 Glycemic pharmacy consulted (10) Fibromyalgia: Continue home meds (11) DVT prophylaxis: SQ heparin Total Time Total Time Spent Total Time Spent (In Minutes): 40 Discharge Plan Discharge Items Patient Disposition: Home - Self-Care Reason For Visit: PNEUMONIA, WEAKNESS Discharge Diagnosis: Vomiting, secondary to hiatal hernia Loose stools Weakness Activity: Per Instructions section Non-emergency contact: Primary Care Provider Call non-emergency contact if: you have any medication questions and your symptoms worsen Follow-up/Referrals: Bartolome Villa DO [Primary Care Provider] - (Date & Time 03/25/2022 12:00 PM Provider Abdulaziz Stanford DO Department [facility] ) Diet: Carb Consistent or DM2 and Heart Healthy Addtl Attending Provider Instructions: Follow-up with your primary care doctor. The appointment was scheduled for you for March 25. Finish antibiotic treatment, with most moxifloxacin, as prescribed. Recommend taking probiotics. You may need to further follow up with gastroenterology. Pending Studies at Discharge: Yes Studies:: Urine Legionella antigen Stand-Alone Forms: [facility] [employer], Smoking Cessation Medications and DC Order Prescriptions: New Advanced Probiotic 625 mg (10 billion cell) Capsule 2 cap PO DAILY Qty: 10 RF: 0 guaifenesin [Mucinex] 600 mg Tablet Extended Release 12hr 600 mg PO Q12 Qty: 10 RF: 0 moxifloxacin 400 mg tablet 400 mg PO DAILY 5 Days Qty: 5 RF: 0 Continued duloxetine [Cymbalta] 60 mg capsule,delayed release(DR/EC) 60 mg PO QAM RF: 0 metoprolol succinate 100 mg tablet extended release 24 hr 100 mg PO QPM RF: 0 amlodipine 5 mg tablet 5 mg PO QAM RF: 0 omeprazole 40 mg capsule,delayed release(DR/EC) 40 mg PO DAILYBB RF: 0 famotidine 20 mg tablet 20 mg PO QPM RF: 0 nitroglycerin 0.4 mg tablet, sublingual 0.4 mg Sublingual UD PRN (Reason: Chest Pain) RF: 0 furosemide 20 mg tablet 20 mg PO UD RF: 0 prasugrel 10 mg tablet 10 mg PO QAM RF: 0 insulin aspart U-100 [Novolog U-100 Insulin aspart] 100 unit/mL Solution 1 sliding scale dose SUBCUT USEASDIRECTD PRN (Reason: HIGH BLOOD SUGAR) RF: 0 gabapentin [Neurontin] 300 mg capsule 300 mg PO QAM RF: 0 Novolin N NPH U-100 Insulin 100 unit/mL suspension 40 unit subcut BIDM RF: 0 aspirin 81 mg Tablet,Delayed Release (Dr/Ec) 81 mg PO QAM RF: 0 tramadol 50 mg tablet 50 mg PO Q6 PRN (Reason: Pain) RF: 0 tramadol 100 mg tablet extended release 24 hr 100 mg PO BID RF: 0 lisinopril 10 mg tablet 10 mg PO DAILY RF: 0 metformin 500 mg tablet extended release 24 hr 1,000 mg PO BID RF: 0 oxycodone 5 mg tablet 5 mg PO Q4H PRN (Reason: pain) Qty: 12 RF: 0 rosuvastatin 40 mg tablet 40 mg PO PM RF: 0 gabapentin 300 mg Capsule 600 mg PO QPM RF: 0 prednisone 5 mg tablet 5 mg PO DAILY Qty: 7 RF: 0 albuterol sulfate 90 mcg/actuation HFA aerosol inhaler 2 puff INHALATION Q4 PRN (Reason: Bronchospasm) RF: 0 diclofenac sodium 1 % Gel 2 g TOPICAL QID PRN (Reason: Pain) RF: 0 isosorbide mononitrate 30 mg tablet extended release 24 hr 30 mg PO DAILY RF: 0 Discharge Orders: Discharge Order (Routine); Ordered 03/22/22 Ordered By: Peter Raya Admission Data Admit Date/Time: 03/20/22 13:15 Attending Provider: Peter Raya Admit Provider: Peter Raya Primary Care Provider: Bartolome Villa Other Providers: Peter Raya
== END 2022-03-22 14:53 | disposition home or self-care (01) ==
LOC: ED 08:27 → 3N 08:27

== ENCOUNTER 2023-10-27 06:54 | Inpatient (IN) ==
--- OUTSIDE RECORDS SUMMARY | 2023-10-27 07:02 | External Medical Summary | Summary of Care ---
Author Name Unknown Organization [facility] Address [address] 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 Name Role Phone Bartolome Villa Primary Care Provider Reason for Visit * Reason Comments Chronic Kidney Disease (CKD) Encounter Details Date Type Department Care Team (Late st Contact Info) Description 10/26/2023 11:20 AM EST Office Visit [facility] [address] [place] [address] Clint Myers MD [address] [place] [address] HTN, goal below 140/90*; Stage 3b chronic kidney disease (HCC) Allergies Active Allergy Reactions Criticality Noted Date Comments Iodinated Contrast Media Itching 08/18/2011 Sitagliptin Phosphate Other (Please comment) 03/07/2013 pancreatitis Niacin High 06/14/2019 Other reaction(s): HOT/BURNING FEELING documented as of this encounter (statuses as of 10/26/2023) Medications Medication Sig Dispensed Refills Start Date End Date Status ONE TOUCH GLUCOSE MONITOR KITIndications:Impa ired fasting glucose use daily 1 0 200 5 Active ASPIRIN 81 MG PO TABSIndications:Old myocardial infarct one tab by mouth daily 34 0 7 Active ONETOUCH LANCETS MISCIndications:Imp aired fasting glucose Use once daily to test blood sugar DX E11.9 100 Box Dosing Unit 11 7 Active Diclofenac Sodium (REXAPHENAC) 1 % CREA Place topically on the skin 4 times a day as needed for Pain. Apply to toes 100 g 11 8 Active Additional Information Patient not taking.Reported on 10/26/2023 Glucose Blood (StretchUCH ULTRA BLUE) STRPIndications:Typ e 2 diabetes mellitus with hemoglobin A1c goal of less than 7.0% (HCC) TEST FOUR TIMES DAILY AND UP TO 8 TIMES DAILY IF NEEDED FOR FLUCTUATING SUGARS E11.9 600 Strip 0 8 Active Nitroglycerin 0.4 MG Sublingual Tablet Sublingual (Nitrostat)Indicati ons:Chest pain Place 1 Tab under the tongue every 5 minutes as needed for Pain, Chest. Up to 3 doses in 15 minutes. 25 Tab 11 1 Active Additional Information Patient not taking.Reported on 06/02/2023 Probiotic Daily Oral Capsule Take by mouth 1 Capsule in the morning. 0 Active Famotidine 20 MG Oral Tablet (Pepcid)Indications :Heartburn Take by mouth 1 Tablet before bedtime. 90 Tablet 5 2 Active BD Insulin Syringe Ultrafine 31G X 15/64" 0.5 ML (Insulin Syringe-Needle U-100)Indications:T ype 2 diabetes mellitus with hemoglobin A1c goal of less than 7.0% (HCC) Use with insulin twice daily as directed. E11.9 200 Each 1 2 Active Rosuvastatin Calcium 40 MG Oral Tablet (Crestor)Indication s:Dyslipidemia, goal LDL below 70 TAKE 1 TABLET BY MOUTH EVERY DAY 90 Tablet 3 3 Active Additional Information Patient taking differently: 40 mg Oral QPM-2000, Reported on 06/02/2023 NovoLOG FlexPen 100 UNIT/ML Subcutaneous Solution Pen-injector INJECT 8-12 UNITS PRIOR TO EACH MEAL -EXTRA IF NEEDED BASED ON BLOOD SUGAR 30 mL 1 3 Active Nystatin 204374 UNIT/GM External Cream Apply topically to affected area 2 times a day. Apply to vulva 2 times a day 45 g 1 3 Active Additional Information Patient taking differently:TopicalPRN, Apply to vulva 2 times a day, Reported on 04/20/2023 Estradiol 0.1 MG/GM Vaginal Cream (Estrace) To vulva daily for 4 weeks and then 2 times a week 42.5 g 3 3 Active Omeprazole 40 MG Oral Capsule Delayed Release (PriLOSEC) TAKE 1 CAPSULE BY MOUTH EVERY DAY 1 HOUR BEFORE THE FIRST MEAL OF THE DAY 90 Capsule 3 3 Active Citalopram Hydrobromide 20 MG Oral Tablet (CeleXA) Take 1/2 tablet by mouth daily for 4 weeks then take 1 tablet by mouth daily. 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 0 Active predniSONE 5 MG Oral Tablet (Deltasone)Indicati ons:Erosive osteoarthritis of both hands,Gout of left wrist, unspecified cause, unspecified chronicity TAKE 1 TABLET BY MOUTH EVERY DAY DIRECTED 90 Tablet 3 3 Active amLODIPine Besylate 5 MG Oral Tablet (Norvasc) TAKE 1 TABLET BY MOUTH EVERY DAY 90 Tablet 1 3 Active Metoprolol Succinate ER 100 MG Oral Tablet Extended Release 24 Hour (toPROL XL)Indications:Old myocardial infarct TAKE 1 TABLET BY MOUTH EVERY EVENING 90 Tablet 1 3 Active Furosemide 20 MG Oral Tablet (Lasix)Indications: Heart failure, systolic, due to CAD TAKE 2 TABLETS BY MOUTH ON MONDAYS, WEDNESDAYS, AND FRIDAYS. TAKE 1 TABLET BY MOUTH ON ALL OTHER DAYS OF THE WEEK. 135 Tablet 3 3 Active metFORMIN HCl ER 500 MG Oral Tablet Extended Release 24 Hour (Glucophage XR)Indications:Type 2 diabetes mellitus with hemoglobin A1c goal of less than 8.0% (HCC) Take 1 Tablet by mouth at bedtime. 90 Tablet 3 3 Active NovoLIN N 100 UNIT/ML Subcutaneous Suspension (insulin isophane human) INJECT 40 UNITS SUBCUTANEOUSLY (UNDER THE SKIN) BEFORE BREAKFAST AND INJECT 40 UNITS BEFORE SUPPER. 30 mL 1 3 Active traMADol HCl ER 100 MG Oral Tablet Extended Release 24 Hour (Ultram ER)Indications:Dannemora leonor osteoarthritis of both hands Take 1 Tablet by mouth in the morning and 1 Tablet before bedtime. 60 Tablet 0 3 Active oxyCODONE HCl 5 MG Oral Tablet (Oxy IR) Take 1 Tablet by mouth every 8 hours as needed for Pain, Severe. 20 Tablet 0 4 Active Lisinopril 10 MG Oral Tablet (Prinivil)Indicatio ns:HTN, goal below 140/90 Take 1 Tablet by mouth every evening. 90 Tablet 3 4 Active Docusate Sodium 50 MG Oral Capsule (Colace) Take 3 Capsules by mouth as needed for Constipation. 0 10/26/19 24 Discontinu ed(Medicat ion List Clean Up) PEG [id number] -NaSulf 236 GM Oral Solution Reconstituted Please take according to Colonoscopy prep instructions. 4000 mL 0 3 10/26/19 24 Discontinu ed(Patient preference /discontin uation) Lisinopril 10 MG Oral Tablet (Prinivil)Indicatio ns:HTN, goal below 140/90 Take 1 Tablet by mouth every evening. 90 Tablet 3 4 10/26/19 24 Discontinu ed(Refill) documented as of this encounter (statuses as of 10/26/2023) Active Problems Problem Noted Date Diagnosed Date Moderate aortic valve stenosis 09/02/2021 VINCE (obstructive sleep apnea) 08/20/2021 Chronic kidney disease, stage 3b 03/24/2021 Overview: Per CKD protocol Coronary artery disease invo lving [place] coronary artery of [place] heart without angina pectoris 02/13/2019 Chronic systolic heart failure 02/13/2019 Type 2 diabetes mellitus wit h hemoglobin A1c goal of less than 8.0% 02/02/2019 HTN, goal below 130/80 12/15/2015 Overview: Per HTN Protocol #27. Old MS (myocardial infarction) 04/21/2015 Dyslipidemia 11/15/2012 Peripheral vascular disease 07/30/2009 S/P angioplasty with stent 08/09/2007 Bicuspid aortic valve Generalized osteoarthritis Fibromyalgia documented as of this encounter (statuses as of 10/26/2023) Resolved Problems Problem Noted Date Diagnosed Date Resolved Date Inflammatory polyarthritis 03/26/2022 0 02/16/2023 Obesity, Class II, BMI 35-39 .9, isolated (see actual BMI) 12/30/2021 04/05/2023 Hypertensive heart and kidne y disease with chronic systolic congestive heart failure and stage 3b chronic kidney disease 03/24/2021 12/31/19 22 Overview: Per CKD protocol Type 2 diabetes mellitus wit h stage 3b chronic kidney disease, with long-term current use of insulin 03/24/2021 12/30/2021 Overview: Per CKD protocol Type 2 diabetes mellitus wit h stage 3a chronic kidney disease, with long-term current use of insulin 02/17/2021 03/26/2021 Overview: Per CKD protocol Chronic kidney disease, stage 3a 02/17/2021 03/26/2021 Overview: Per CKD protocol Hypertensive heart and kidne y disease with chronic systolic congestive heart failure and stage 3a chronic kidney disease 08/18/2020 03/26/20 21 Overview: Per CKD protocol Major depressive disorder, r ecurrent, unspecified 09/13/2019 12/30/2021 Hypertensive heart and kidne y disease with chronic systolic congestive heart failure and stage 3 chronic kidney disease 03/20/2019 0 Overview: Per CKD protocol Encounter for examination fo r normal comparison and control in clinical research program 02/05/2019 05/12/2020 Overview: DO NOT DELETE [facility] [place] DETECT Study: Project # [id number], Direct Mail Manager: Jona Mckeon, PhD. SUMMARY: Goal: Establish test characteristics (sensitivity, specificity, PPV, NPV) of a circulating tumor DNA (ctDNA)-based test for cancer. Hypothesis: Circulating tumor DNA (ctDNA) and elevated protein biomarkers (together, the marker panel) can be detected in asymptomatic individuals with early cancer. Specific Aim 1: Determine the prevalence of a positive marker panel test in a prospective clinical cohort of 10,000 asymptomatic women ages 65 to 75 years. Specific Aim 2: Determine the sensitivity, specificity, positive predictive value (PPV) and negative predictive value (NPV) of a marker panel test to identify histologically proven cancers that develop within 5-years of the marker panel evaluation. CONTACTS: During normal business hours, contact study staff at ; after hours Direct Mail Manager via the [facility] absorber operator . Please contact study team before resolving/deleting from patients problem list. Study phone number: [phone]. Diagnosis changed due to Research Module. Go to Snapshot for study details. Encounter for examination fo r normal comparison and control in clinical research program 02/05/2019 06/10/2022 Overview: DO NOT DELETE - [facility] Study: Project # [id number], Direct Mail Manager: Vipin Carvalho, MS, MPH. SUMMARY: Goal: Establish test characteristics (sensitivity, specificity, PPV, NPV) of a circulating tumor DNA (ctDNA)-based test for cancer. - Hypothesis: Circulating tumor DNA (ctDNA) and elevated protein biomarkers (together, the marker panel) can be detected in asymptomatic individuals with early cancer. - Specific Aim 1: Determine the prevalence of a positive marker panel test in a prospective clinical cohort of 10,000 asymptomatic women ages 65 to 75 years. - Specific Aim 2: Determine the sensitivity, specificity, positive predictive value (PPV) and negative predictive value (NPV) of a marker panel test to identify histologically proven cancers that develop within 5-years of the marker panel evaluation. - CONTACTS: During normal business hours, contact study staff at ; after hours Direct Mail Manager via the [facility] absorber operator . - Please contact study team before resolving/deleting from patients problem list. Study phone number: [phone]. Diagnosis changed due to Research Module. Go to Snapshot for study details. Type 2 diabetes mellitus wit h stage 3 chronic kidney disease, with long-term current use of insulin 02/02/2019 02/19/2021 Overview: Per CKD protocol Hypertensive kidney disease with chronic kidney disease stage III 02/02/2019 03/20/2019 ADVANCE DIRECTIVE INFORMATION 01/03/2019 12/30/2021 Overview: Information given at previous visit Depression 06/21/2018 12/30/2021 Hiatal hernia 06/21/2018 12/30/2021 History of MS (myocardial infarction) 05/09/2018 12/30/2021 Vulvar lesion 05/09/2018 12/30/[address] scan, chest 09/14/201712/09 History of smoking 30 or more pack years 06/09/2017 12/30/2021 Controlled substance agreement signed 07/20/2016 04/05/2023 Heart failure, systolic, due to CAD 12/04/2015 05/09/2018 Kidney disease, chronic, sta ge III (GFR 30-59 ml/min) 01/20/2015 02/21/2019 Overview: Per CKD protocol #1 HTN, GOAL BELOW 140/80 05/29/201201/14 Overview: Per HTN Protocol #27. HTN, GOAL BELOW 130/80 11/06/200906/01 Overview: Per HTN Taxonomy. Dyslipidemia, goal LDL below 100 09/25/2009 10/26/2011 Overview: Per Lipid Taxonomy. Type 2 diabetes mellitus, wi th long-term current use of insulin 08/07/2009 04/05/2023 Overview: Per Diabetes Taxonomy. ICD-10 update of inactive term Dyslipidemia, goal to be determined 07/30/2009 09/25/2009 Overview: Per Lipid Taxonomy. S/P angioplasty with stent 08/09/2007 0 11/07/2008 Overview: Resolved per Duplicate Protocol #2. EXAMINATION OF PARTICIPANT I N CLINICAL TRIAL- Event registry 06/29/2007 08/01/2008 Overview: Study Titile: Event Registry Project #[id number] PI: Rachna Manley MD Please call [phone] with study related questions [employer] Other*[id number] 06/29/2007 11/16/2016 Overview: Study Title: [employer] Markers for Patients with Cardiovascular Disease Project # [id number] Direct Mail Manager: Rachna Manley MD [phone] Type 2 diabetes mellitus wit h hemoglobin A1c goal of less than 7.0% 11/15/2005 08/07/2009 Overview: Per Diabetes Taxonomy. ICD-10 update of inactive term Spondylolisthesis 05/11/2004 12/30/2021 HTN, goal below 140/90 12/08/200011/06 Overview: Per HTN Taxonomy. S/P total knee replacement, left 04/05/2023 Erosive osteoarthritis of both hands 04/05/2023 documented as of this encounter (statuses as of 10/26/2023) Immunizations Name Administration Dates Next Due COVID-19 mRNA, LNP-s, No Pre serve, 2-Dose Series (HitchedPic) 10/06/2021,01/05/2021,12/09/2020 COVID-19, LNP-s, No Preserve , Angus-sucrose, Ages 12+ (Pfizer) 03/10/2022 Covid-19, Mrna, Lnp-s, Pf, B ivalent, 30 Mcg, IM, 12 yrs and above (Pfizer) 07/13/2022 Pneumococcal Conjugate Vacc, 13 Valent (Prevnar) 11/25/2016 Pneumococcal Polysaccharide PPV23 (Pneumovax) 05/09/2018,07/18/2006 RSV Vac., Recomb, Adjuvant, PF,0.5 Ml (Arexvy) 09/16/2023 Seasonal Influenza, PF, 6 M & above, IM , (FluLaval or Fluzone) 07/04/2023,06/30/2021,08/24/2018,07/05 Seasonal Influenza, Quadriva lent Hd (Fluzone Hd) 07/16/2022 Seasonal Influenza, Quadriva lent, No Preserve, IM 06/24/2016 Seasonal Influenza, Split, I IV3, With Preserve, Inj 06/19/2015,06/13/2014,09/27/2013,08/29,08/20/2008,07/25/2007,07/18/2006 Seasonal Influenza, Trivalen t, Adjuvanted, 65+ yrs 06/10/2020,07/20/2019 Seasonal Influenza, Trivalen t, High Dose, No Preserve, IM 07/28/2019 TD, Preservative Free 01/09/1996 TDAP (age 10 and older)(Boostrix) 09/13/2019 TDAP (age 11 and older)(Adacel) 07/30/2009 Varicella Zoster Vaccine (Adult) 07/07/2015 Zoster Vaccine Recombinant (Shingrix) 06/25/2020 ,03/26/2020 documented as of this encounter Social History Tobacco Use Types Packs/Day Years Used Date Smoking Tobacco: Former Cigarettes 1 40 Q uit: 05/28/2015 Smokeless Tobacco: Never Tobacco Cessation:Counseling Given: Not Answered Alcohol Use Standard Drinks/Week Comments Yes 0 (1 standard drink = 0.6 oz pur e alcohol) rare PHQ-2 Answer Date Recorded PHQ Adult Total Score 1 09/22/2022 Hunger Vital Sign Answer Date Recorded Within the past 12 months, y ou worried that your food would run out before you got the money to buy more. Never true 09/22/20 22 Within the past 12 months, t he food you bought just didn't last and you didn't have money to get more. Never true 09/22/2022 Sex and Gender Information Value Date Recorded Sex Assigned at Female 03/25/2020 1:53 PM EDT Gender Identity Female 03/25/2020 1:53 PM EDT Sexual Orientation Straight 03/25/2020 1: 53 PM EDT Job Start Date Occupation Industry Not on file Not on file Not on file documented as of this encounter Last Filed Vital Signs Vital Sign Reading Time Taken Comments Blood Pressure 126/55 10/26/2023 11:15 AM EST Pulse 58 10/26/2023 11:15 AM EST Temperature 36.6 C (97.8 F) 10/26/2023 11:[address] Respiratory Rate 18 10/26/2023 11:15 AM EST Oxygen Saturation 96% 10/26/2023 11:15 AM EST Inhaled Oxygen Concentration - - Weight 87.5 kg (193 lb) 10/26/2023 11:15 AM EST Height - - Body Mass Index 31.63 06/30/2023 10:48 AM EDT documented in this encounter Progress Notes * Clint Myers MD - 10/26/2023 1:07 PM EST Chief Complaint Patient presents with Chronic Kidney Disease (CKD) HPI: 73-year-old female with history type 2 diabetes for 20+ years currently on insulin for about 10 years. Here for evaluation of CKD with most recent blood work from September 2021 showing a creatinine of 1.4 GFR of 39. She has had slowly progressive CKD for the last few years. No proteinuria. She also has coronary artery disease status post MS status post stent and also has moderately severe aortic stenosis being followed for now. No childhood kidney disease or family history of kidney disease Since last visit Jun 2022==== no hospital admission or major health problem. However she is very worried about her daughter who is currently dealing with severe hematological/bone marrow related disease. Patient Now feels completely normal. She does complain of chronic aches and pains for which shetakes multiple medication but no NSAIDs. Labs done April 2023 was reviewed and stable. Diabetes and blood pressure is well controlled. She isstill taking lisinopril which I restarted last visit NSAID No Renal Stone No Herbal Medication No Urinary Complaints No Current Outpatient Medications Medication Sig Dispense Refill ASPIRIN 81 MG PO TABS one tab by mouth daily 34 0 Probiotic Daily Oral Capsule Take by mouth 1 Capsule in the morning. Famotidine 20 MG Oral Tablet (Pepcid) Take by mouth 1 Tablet before bedtime. 90 Tablet 5 Rosuvastatin Calcium 40 MG Oral Tablet (Crestor) TAKE 1 TABLET BY MOUTH EVERY DAY (Patient taking differently: Take 1 Tablet by mouth every evening.) 90 Tablet 3 NovoLOG FlexPen 100 UNIT/ML Subcutaneous Solution Pen-injector INJECT 8-12 UNITS PRIOR TO EACH MEAL-EXTRA IF NEEDED BASED ON BLOOD SUGAR 30 mL 1 Estradiol 0.1 MG/GM Vaginal Cream (Estrace) To vulva daily for 4 weeks and then 2 times a week 42.5g 3 Omeprazole 40 MG Oral Capsule Delayed Release (PriLOSEC) TAKE 1 CAPSULE BY MOUTH EVERY DAY 1 HOUR BEFORE THE FIRST MEAL OF THE DAY 90 Capsule 3 Prasugrel HCl 10 MG Oral Tablet (Effient) TAKE 1 TABLET BY MOUTH EVERY MORNING 90 Tablet 3 Gabapentin 300 MG Oral Capsule (Neurontin) TAKE 1 CAPSULE BY MOUTH EVERY MORNING AND 2 CAPSULES EVERY EVENING 90 Capsule 11 Isosorbide Mononitrate ER 30 MG Oral Tablet Extended Release 24 Hour (Imdur) TAKE 1 TABLET BY MOUTHEVERY MORNING 90 Tablet 3 HM Vitamin B-12 TR 2000 MCG Oral Tablet Extended Release (Cyanocobalamin ER) Take by mouth daily. predniSONE 5 MG Oral Tablet (Deltasone) TAKE 1 TABLET BY MOUTH EVERY DAY DIRECTED 90 Tablet 3 amLODIPine Besylate 5 MG Oral Tablet (Norvasc) TAKE 1 TABLET BY MOUTH EVERY DAY 90 Tablet 1 Metoprolol Succinate ER 100 MG Oral Tablet Extended Release 24 Hour (toPROL XL) TAKE 1 TABLET BY MOUTH EVERY EVENING 90 Tablet 1 Furosemide 20 MG Oral Tablet (Lasix) TAKE 2 TABLETS BY MOUTH ON MONDAYS, WEDNESDAYS, AND FRIDAYS. TAKE 1 TABLET BY MOUTH ON ALL OTHER DAYS OF THE WEEK. 135 Tablet 3 metFORMIN HCl ER 500 MG Oral Tablet Extended Release 24 Hour (Glucophage XR) Take 1 Tablet by mouthat bedtime. 90 Tablet 3 NovoLIN N 100 UNIT/ML Subcutaneous Suspension (insulin isophane human) INJECT 40 UNITS SUBCUTANEOUSLY (UNDER THE SKIN) BEFORE BREAKFAST AND INJECT 40 UNITS BEFORE SUPPER. 30 mL 1 traMADol HCl ER 100 MG Oral Tablet Extended Release 24 Hour (Ultram ER) Take 1 Tablet by mouth in the morning and 1 Tablet before bedtime. 60 Tablet 0 oxyCODONE HCl 5 MG Oral Tablet (Oxy IR) Take 1 Tablet by mouth every 8 hours as needed for Pain, Severe. 20 Tablet 0 Lisinopril 10 MG Oral Tablet (Prinivil) Take 1 Tablet by mouth every evening. 90 Tablet 3 ONE TOUCH GLUCOSE MONITOR KIT use daily 1 0 ONETOUCH LANCETS MISC Use once daily to test blood sugar DX E11.9 100 Box Dosing Unit 11 Diclofenac Sodium (REXAPHENAC) 1 % CREA Place topically on the skin 4 times a day as needed for Pain. Apply to toes (Patient not taking: Reported on 10/26/2023) 100 g 11 Glucose Blood (ONETOUCH ULTRA BLUE) STRP TEST FOUR TIMES DAILY AND UP TO 8 TIMES DAILY IF NEEDED FOR FLUCTUATING SUGARS E11.9 600 Strip 0 Nitroglycerin 0.4 MG Sublingual Tablet Sublingual (Nitrostat) Place 1 Tab under the tongue every 5 minutes as needed for Pain, Chest. Up to 3 doses in 15 minutes. (Patient not taking: Reported on 06/02/2023) 25 Tab 11 BD Insulin Syringe Ultrafine 31G X 15/64" 0.5 ML (Insulin Syringe-Needle U-100) Use with insulin twice daily as directed. E11.9 200 Each 1 Nystatin 230770 UNIT/GM External Cream Apply topically to affected area 2 times a day. Apply to vulva 2 times a day (Patient taking differently: Apply topically to affected area as needed. Apply to vulva 2 times a day) 45 g 1 Citalopram Hydrobromide 20 MG Oral Tablet (CeleXA) Take 1/2 tablet by mouth daily for 4 weeks then take 1 tablet by mouth daily. (Patient taking differently: Take 1 Tablet by mouth in the morning. take 1 tablet by mouth daily..) 30 Tablet 11 No current facility-administered medications for this visit. Past Medical History: Diagnosis Date ASCVD (arteriosclerotic cardiovascular disease) Bicuspid aortic valve Controlled substance agreement signed 07/20/2016 DM type 2, goal A1c below 7 Dyslipidemia, goal LDL below 70 11/15/2012 Fibromyalgia Generalized OA Heart failure, systolic, due to CAD 12/04/2015 History of MS (myocardial infarction) 05/09/2018 HTN, goal below 140/90 ILD (interstitial lung disease) ([facility]) Kidney disease, chronic, stage III (GFR 30-59 ml/min) ([facility]) 01/20/2015 Per CKD protocol #1 Lung nodule MS (myocardial infarction) ([facility]) 2006 MS (myocardial infarction) ([facility]) 2010 Obesity, Class II, BMI 35-39.9, isolated (see actual BMI) 12/30/2021 Osteoarthritis, hand Peripheral vascular disease ([facility]) 07/30/2009 S/P angioplasty with stent 08/09/2007 S/P total knee replacement, left Spondylolisthesis 05/11/2004 ST elevation MS (STEMI) ([facility]) 04/21/2015 Past Surgical History: Procedure Laterality Date ARTHROPLASTY KNEE TOTAL Left 08/2015 CARDIAC CATH INJ. FOR CORONARY ANGIOGRAPHY 2007 2 cypher drug eluding stents CARDIAC DRUG [facility]ENT [facility], ADD'L 2014 2 LENA stents placed CARDIAC DRUG [facility]ENT [facility]ACE, SINGLE 2010 COLONOSCOPY, DIAGNOSTIC (RECTUM) 01/02/2014 COLONOSCOPY FLEXIBLE PROXIMAL DIAGNOSTIC performed by Armando Crandall MD at [facility] COLONOSCOPY, DIAGNOSTIC (RECTUM) 08/29/2019 normal,poor prep-COLONOSCOPY FLEXIBLE PROXIMAL DIAGNOSTIC performed by Brenda Nolasco MD at [facility] COLONOSCOPY, DIAGNOSTIC (RECTUM) 06/07/2023 diverticulosis/biopsies show tubulovillous adenoma/recall 3 years/COLONOSCOPY FLEXIBLE PROXIMAL DIAGNOSTIC performed by Adryan Don MD at [facility] EGD, FLEXIBLE, DIAGNOSTIC 04/06/2016 mild inflammation/ESOPHAGOGASTRODUODENOSCOPY (EGD), FLEXIBLE, TRANSORAL, DIAGNOSTIC performed by Zara Woods DO at [facility] LASERING OF SECONDARY CATARACT Left 01/06/2015 YAG LASER OS, DR. YO ALFARO LASERING OF SECONDARY CATARACT Right 01/13/2015 YAG LASER OD, DR. YO ALFARO LIGATE/CUT OVIDUCT(S) PELVIC EXAM UNDER ANESTHESIA, NOT LOCAL N/A 07/04/2018 PELVIC EXAMINATION UNDER ANESTHESIA performed by Corie Villa DO [place] [facility] [place]AL OF APPENDIX REMOVAL OF VULVA, PARTIAL N/A 07/04/2018 VULVECTOMY SIMPLE PARTIAL performed by Corie Villa DO at [facility] SPINE SURGERY PROCEDURE NEC 06/2019 Review of patient's allergies indicates: Allergen Reactions Niacin Other reaction(s): HOT/BURNING FEELING Iodinated Contrast Media Itching Januvia [Sitagliptin Phosphate] Other (Please comment) pancreatitis Family History Problem Relation Age of Onset Hypertension Father Heart attack Father 42 fatal Hypertension Mother Arthritis Mother Eye Problems None denies fm: glaucoma, blindness, AMD, RD No Past Hx None No FM HX of [employer] [place] Heart disease Brother Hearing loss Daughter Autoimmune ear disease - Follows with Rheumatology Arthritis Brother hand arthritis; 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 Testicular cancer Son metastatic to bladder Bipolar Disorder Son Family History of Renal Disease No Social History Socioeconomic History Marital status: Spouse name: Not on file Number of children: Not on file Years of education: Not on file Highest education level: Not on file Occupational History 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 maker--wood Tobacco Use Smoking status: Former Packs/day: 1.00 Years: 40.00 Additional pack years: 0.00 Total pack years: 40.00 Types: Cigarettes Quit date: 05/28/2015 Years since quittin.4 Smokeless tobacco: Never Vaping Use Vaping Use: Never used Substance and Sexual Activity Alcohol use: Yes Comment: rare Drug use: Not Currently Types: Marijuana Comment: Tried once in college Sexual activity: Not Currently Other Topics Concern Not on file Social History Narrative 1 dog and 2 cats No mold Social Determinants of Health Financial Resource Strain: Not on file Food Insecurity: No Food Insecurity (09/22/2022) Hunger Vital Sign Worried About Running Out of Food in the Last Year: Never true Ran Out of Food in the Last Year: Never true Transportation Needs: Not on file Physical Activity: Not on file Stress: Not on file Social Connections: Not on file Intimate Partner Violence: Not on file Housing Stability: Not on file Review of Systems: 12 systems reviewed and negative OBJECTIVE: PHYSICAL EXAM: BP 126/55 (BP Site: Right Arm, BP Position: Sitting, BP Cuff Size: Regular) | Pulse 58 | Temp 36.6 C (97.8 F) | Resp 18 | Wt 87.5 kg (193 lb) | LMP 06/21/2003 | SpO2 96% | BMI 31.63 kg/m | BSA 2.01 m General: alert and no distress Head: No masses, lesions, tenderness or abnormalities Neck: supple, no JVD Heart: regular rate & rhythm, no murmurs and no gallops Lungs: normal respiratory rate and rhythm, lungs clear to auscultation Abdomen: abdomen soft and non-tender Back: no costovertebral angle tenderness Extremities: no edema Neuro Exam: alert & oriented x 3 with fluent speech, no focal motor/sensory deficits Skin: skin color, texture, turgor are normal, no rashes or significant lesions BP Readings from Last 4 Encounters: 10/26/23 126/55 09/06/23 112/58 07/01/23 128/62 06/30/23 126/58 Wt Readings from Last 4 Encounters: 10/26/23 87.5 kg (193 lb) 09/06/23 88.9 kg (196 lb) 07/01/23 90.1 kg (198 lb 11.2 oz) 06/30/23 89.9 kg (198 lb 3.2 oz) Estimated body mass index is 31.63 kg/m as calculated from the following: Height as of 06/30/23: 1.664 m (5' 5.5"). Weight as of this encounter: 87.5 kg (193 lb). NEPH-FLOW Latest Ref Rng & Units 10/30/2020 03/16/2021 03/24/2021 Bun 6 - 20 mg/dL 26 (H) 34 (H) 31 (H) Cr 0.5 - 1.0 mg/dL 1.5 (H) 1.6 (H) 1.6 (H) eGFR >=60 mL/min 33.9 (L) 31.9 (L) eGFR >60 36.7 (L) K 3.5 - 5.1 mmol/L 5.4 (H) 4.3 5.0 Hb 12.0 - 15.3 g/dL 13.3 Microalb/cr ratio <30 mg/g creat <29 NEPH-FLOW Latest Ref Rng & Units 05/02/2021 05/04/2021 05/13/2021 Bun 6 - 20 mg/dL 32 (H) 34 (H) Cr 0.5 - 1.0 mg/dL 1.59 (A) 1.3 (H) 1.2 (H) eGFR >=60 mL/min 32.8 40.8 (L) 44.4 (L) eGFR >60 K 3.5 - 5.1 mmol/L 4.8 4.8 5.1 Hb 12.0 - 15.3 g/dL 11.3 (A) Microalb/cr ratio <30 mg/g creat NEPH-FLOW Latest Ref Rng & Units 05/25/2021 06/03/2021 07/22/2021 Bun 6 - 20 mg/dL 38 (H) 26 (H) 19 Cr 0.5 - 1.0 mg/dL 1.4 (H) 1.3 (H) 1.2 (H) eGFR >=60 mL/min 39.7 (L) 43.2 (L) 47.7 (L) eGFR >60 K 3.5 - 5.1 mmol/L 5.8 (H) 4.8 4.6 Hb 12.0 - 15.3 g/dL Microalb/cr ratio <30 mg/g creat NEPH-FLOW Latest Ref Rng & Units 08/20/2021 09/21/2021 Bun 6 - 20 mg/dL 22 (H) Cr 0.5 - 1.0 mg/dL 1.4 (H) eGFR >=60 mL/min 39 (L) eGFR >60 K 3.5 - 5.1 mmol/L 3.9 Hb 12.0 - 15.3 g/dL 13.1 12.0 Microalb/cr ratio <30 mg/g creat NEPH-FLOW Latest Ref Rng & Units 11/17/2021 12/30/2021 06/04/2022 Bun 6 - 20 mg/dL 18 27 (H) Cr 0.5 - 1.0 mg/dL 1.2 (H) 1.3 (H) eGFR >=60 mL/min 47 (L) 44 (L) eGFR >60 K 3.5 - 5.1 mmol/L 4.6 4.9 Hb 12.0 - 15.3 g/dL 13.0 12.3 12.7 Pro/Cr ratio <150 mg/g 128 Microalb/cr ratio <30 mg/g creat ASSESSMENT: HTN, goal below 140/90 (Primary) Blood pressure is at goal continue same including lisinopril 10. - Lisinopril 10 MG Oral Tablet (Prinivil); Take 1 Tablet by mouth every evening. Stage 3b chronic kidney disease (HCC) CKD stage IIIA to sometimes 3B secondary to combination of multiple medical problems mainly diabetes hypertension as well as coronary artery disease/aortic stenosis. No proteinuria overt retinopathy or neuropathy means somewhat better renal prognosis Explained to the patient about good diabetes pressure control avoiding salt and avoiding NSAIDs as means to prolong the life of the kidney. Labs done was reviewed and shows a creatinine of 1.3 GFR of 44 which is baseline. Potassium was normal. Continue current medication including lisinopril 10. Labs as below within the next few weeks to months - CBC WITH WBC DIFFERENTIAL; Future; Expected date: 10/26/2023 - PROTEIN/ CREATININE RATIO, URINE; Future; Expected date: 10/26/2023 - RENAL FUNCTION PANEL; Future; Expected date: 10/26/2023 - URINALYSIS WITH MICROSCOPIC EXAM; Future; Expected date: 10/26/2023 - 25-HYDROXY VITAMIN D; Future; Expected date: 10/26/2023 - MAGNESIUM; Future; Expected date: 10/26/2023 Follow Up: Return in about 6 months (around 04/25/2024) for Clinic Visit. | For: Clinic Visit Clint Myers MD documented in this encounter Nursing Notes * Elena Velasco RN - 10/26/2023 11:18 AM EST Follow up visit today. No recent illness or hospital stays. documented in this encounter Plan of Treatment Upcoming Encounters Date Type Department Care Team (Late st Contact Info) Description 11/02/2023 10:00 AM EST Therapy Psychology, [facility] [address] [place] [address] Beni Mares, PhD 200 [facility] [place] [address] 11/18/2023 11:30 AM EST Office Visit Cardiology, [facility] [address] [place] [address] Chema Hayden MD [address] [place] [address] 12/12/2023 1:00 PM EST Office Visit Family Practice [facility] [address] [place] [address] Amrita Vergara CRNP [address] [place] [address] 02/23/2024 10:00 AM EDT Office Visit Rheumatology [place] [id number] [facility] [place] [address] Beni Fernandez MD [facility] [place] [address] 03/15/2024 11:00 AM EDT Office Visit Pharmacy, [facility] [address] [place] [address] [facility] [address] [place] [address] 05/03/2024 5:40 PM EDT Office Visit Family Practice [facility] [address] [place] [address] Bartolome Villa, [address] [place] [address] Scheduled Orders Name Type Priority Associated Diagnoses Orde r Schedule CBC WITH WBC DIFFERENTIAL Lab Routine Stage 3b chronic kidney disease (HCC) Expected: 10/26/2023 (Approximate), Expires: 04/23/2024 PROTEIN/ CREATININE RATIO, URINE Lab Routine Stage 3b chronic kidney disease (HCC) Expected: 10/26/2023 (Approximate), Expires: 04/23/2024 RENAL FUNCTION PANEL Lab Routine Stage 3b chronic kidney disease (HCC) Expected: 10/26/2023 (Approximate), Expires: 04/23/2024 URINALYSIS WITH MICROSCOPIC EXAM Lab Routine Stage 3b chronic kidney disease (HCC) Expected: 10/26/2023 (Approximate), Expires: 04/23/2024 25-HYDROXY VITAMIN D Lab Routine Stage 3b chronic kidney disease (HCC) Expected: 10/26/2023 (Approximate), Expires: 04/23/2024 MAGNESIUM Lab Routine Stage 3b chronic kidney disease (HCC) Expected: 10/26/2023 (Approximate), Expires: 04/23/2024 Scheduled Procedures Name Priority Associated Diagnoses Date/Ti me COLONOSCOPY FLEXIBLE PROXIMA L DIAGNOSTIC Recall History of colonic polyps Health Maintenance Due Date Last Done Comments Hepatitis B (1 of 3 - Risk 3-dose series) 2011 COVID-19 Vaccine ( season) 2023 07/13/2022, 03/10/2022, 10/06/2021, Additional history exists CKD HGB USE SMARTSET 90535 09/09/202309/09, 09/09/2022, 06/04/2022, Additional history exists Depression Screening 09/22/2023 09/22/2022 GFR 10/21/2023 04/20/2023, 05/11, 11/17/2021, Additional history exists HbA1c 10/21/2023 04/20/2023, 05/11, 12/07/2021, Additional history exists Mammogram 04/08/2024 04/08/2023, 03/12, 04/06/2022, Additional history exists Albumin/Creatinine Ratio 04/20/2024 023, 03/25/2022, 10/30/2020, Additional history exists CKD PHOS USE SMARTSET 12498 04/20/202404/09, 11/17/2021, 03/26/2020, Additional history exists Diabetic Eye Exam 09/06/2024 09/06/2023, , 08/13/2021, Additional history exists Diabetic Foot Exam 09/06/2024 09/06/2023, 0 06/03/2021, 03/25/2020, Additional history exists COLONOSCOPY-EVERY 3 YRS AGES 18-100 06/07/2026 06/07/2023, 06/07/2023, 08/29/2019, Additional history exists DXA Scan 11/09/2028 11/09/2021, 10/12, 12/27/2016 DTaP,Tdap,and Td Vaccines (3 - Td or Tdap) 09/13/2029 09/13/2019, 07/30/2009, 01/09/1996, Additional history exists Pneumococcal Vaccine: 65+ Years Completed 05/09/2018, 11/25/2016, 07/18/2006 Zoster Vaccines Completed 06/25/2020, 03/10, 07/07/2015 LUNG CANCER SCREENING - USE SMARTSET 03229 Completed 02/15/2023, 04/06/2022, 05/09/2020, Additional history exists COLONOSCOPY-EVERY 2 YRS AGES 18-100 Discontinued 06/07/2023, 06/07/2023, 08/29/2019, Additional history exists Influenza Vaccine (FLU shot) Completed 07/04/2023, 07/16/2022, 06/30/2021, Additional history exists GARDASIL-HPV IMMUNIZATION SERIES Aged Out No longer eligible based on patient's age to complete this topic MENINGOCOCCAL (MENACTRA/MENVEO) Aged Out No longer eligible based on patient's age to complete this topic documented as of this encounter Medical Devices Not on filedocumented as of this encounter Visit Diagnoses Diagnosis HTN, goal below 140/90- Primary Unspecified essential hypertension Stage 3b chronic kidney disease (HCC) documented in this encounter Advance Directives Latest Code Status on File Code Status Date Activated Date Inactivated Comments Full Code 07/04/2018 11:03 AM 07/04/2018 5:07 PM This order reflects the patients wishes and were consensually agreed upon. Care Teams Prospecting Driller Relationship Specialty Start Date End Date Bartolome Villa DO [address] [place] [address] PCP - General Family Medicine 02/16/23 documented as of this encounter
--- OUTSIDE RECORDS SUMMARY | 2023-10-27 07:02 | External Medical Summary | Summary of Care ---
Author Name Unknown Organization [facility] Address [address] [facility] [place] [address] Phone [phone] Care Team Providers Care Extrusion Engineer Name Role Phone Bartolome Villa DO Primary Care Provider Reason for Visit * Reason Onset Date Comments Other 10/17/2023 Encounter Details Date Type Department Care Team (Late st Contact Info) Description 10/17/2023 Telephone Family Practice [facility] [address] [place] [address] Bartolome Villa DO [address] [place] [address] Other Allergies Active Allergy Reactions Criticality Noted Date Comments Iodinated Contrast Media Itching 08/18/2011 Sitagliptin Phosphate Other (Please comment) 03/07/2013 pancreatitis Niacin High 06/14/2019 Other reaction(s): HOT/BURNING FEELING documented as of this encounter (statuses as of 10/17/2023) Medications Medication Sig Dispensed Refills Start Date End Date Status ONE TOUCH GLUCOSE MONITOR KITIndications:Impa ired fasting glucose use daily 1 0 10/06/2005 Active ASPIRIN 81 MG PO TABSIndications:Old myocardial infarct one tab by mouth daily 34 0 07/25/2007 Active ONETOUCH LANCETS MISCIndications:Imp aired fasting glucose Use once daily to test blood sugar DX E11.9 100 Box Dosing Unit 11 02/10/2017 Active Diclofenac Sodium (REXAPHENAC) 1 % CREA Place topically on the skin 4 times a day as needed for Pain. Apply to toes 100 g 11 05/09/2018 Active Glucose Blood (ONETOUCH ULTRA BLUE) STRPIndications:Typ e 2 diabetes mellitus with hemoglobin A1c goal of less than 7.0% (HCC) TEST FOUR TIMES DAILY AND UP TO 8 TIMES DAILY IF NEEDED FOR FLUCTUATING SUGARS E11.9 600 Strip 0 07/07/2018 Active Nitroglycerin 0.4 MG Sublingual Tablet Sublingual (Nitrostat)Indicati ons:Chest pain Place 1 Tab under the tongue every 5 minutes as needed for Pain, Chest. Up to 3 doses in 15 minutes. 25 Tab 11 07/13/2021 Active Additional Information Patient not taking.Reported on 06/02/2023 Probiotic Daily Oral Capsule Take by mouth 1 Capsule in the morning. 0 Active Docusate Sodium 50 MG Oral Capsule (Colace) Take 3 Capsules by mouth as needed for Constipation. 0 Active Famotidine 20 MG Oral Tablet (Pepcid)Indications :Heartburn Take by mouth 1 Tablet before bedtime. 90 Tablet 5 08/13/2022 Active BD Insulin Syringe Ultrafine 31G X 15/64" 0.5 ML (Insulin Syringe-Needle U-100)Indications:T ype 2 diabetes mellitus with hemoglobin A1c goal of less than 7.0% (HCC) Use with insulin twice daily as directed. E11.9 200 Each 1 09/08/2022 Active Rosuvastatin Calcium 40 MG Oral Tablet (Crestor)Indication s:Dyslipidemia, goal LDL below 70 TAKE 1 TABLET BY MOUTH EVERY DAY 90 Tablet 3 12/06/2022 Active Additional Information Patient taking differently: 40 mg Oral QPM-1999, Reported on 06/02/2023 PEG 5069-QAm-BuQip-NaCl -NaSulf 236 GM Oral Solution Reconstituted Please take according to Colonoscopy prep instructions. 4000 mL 0 01/21/2023 Active NovoLOG FlexPen 100 UNIT/ML Subcutaneous Solution Pen-injector INJECT 8-12 UNITS PRIOR TO EACH MEAL -EXTRA IF NEEDED BASED ON BLOOD SUGAR 30 mL 1 02/06/2023 Active Nystatin 396247 UNIT/GM External Cream Apply topically to affected area 2 times a day. Apply to vulva 2 times a day 45 g 1 04/11/2023 Active Additional Information Patient taking differently:TopicalPRN, Apply to vulva 2 times a day, Reported on 04/20/2023 Estradiol 0.1 MG/GM Vaginal Cream (Estrace) To vulva daily for 4 weeks and then 2 times a week 42.5 g 3 04/22/2023 Active Omeprazole 40 MG Oral Capsule Delayed Release (PriLOSEC) TAKE 1 CAPSULE BY MOUTH EVERY DAY 1 HOUR BEFORE THE FIRST MEAL OF THE DAY 90 Capsule 3 04/18/2023 Active Citalopram Hydrobromide 20 MG Oral Tablet (CeleXA) Take 1/2 tablet by mouth daily for 4 weeks then take 1 tablet by mouth daily. 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 0 Active predniSONE 5 MG Oral Tablet (Deltasone)Indicati ons:Erosive osteoarthritis of both hands,Gout of left wrist, unspecified cause, unspecified chronicity TAKE 1 TABLET BY MOUTH EVERY DAY DIRECTED 90 Tablet 3 07/14/2023 Active amLODIPine Besylate 5 MG Oral Tablet (Norvasc) TAKE 1 TABLET BY MOUTH EVERY DAY 90 Tablet 1 07/24/2023 Active Metoprolol Succinate ER 100 MG Oral Tablet Extended Release 24 Hour (toPROL XL)Indications:Old myocardial infarct TAKE 1 TABLET BY MOUTH EVERY EVENING 90 Tablet 1 07/24/2023 Active Furosemide 20 MG Oral Tablet (Lasix)Indications: Heart failure, systolic, due to CAD TAKE 2 TABLETS BY MOUTH ON MONDAYS, WEDNESDAYS, AND FRIDAYS. TAKE 1 TABLET BY MOUTH ON ALL OTHER DAYS OF THE WEEK. 135 Tablet 3 07/28/2023 Active metFORMIN HCl ER 500 MG Oral Tablet Extended Release 24 Hour (Glucophage XR)Indications:Type 2 diabetes mellitus with hemoglobin A1c goal of less than 8.0% (HCC) Take 1 Tablet by mouth at bedtime. 90 Tablet 3 09/06/2023 Active NovoLIN N 100 UNIT/ML Subcutaneous Suspension (insulin isophane human) INJECT 40 UNITS SUBCUTANEOUSLY (UNDER THE SKIN) BEFORE BREAKFAST AND INJECT 40 UNITS BEFORE SUPPER. 30 mL 1 09/22/2023 Active oxyCODONE HCl 5 MG Oral Tablet (Oxy IR) Take 1 Tablet by mouth every 8 hours as needed for Pain, Severe. 20 Tablet 0 09/26/2023 Active traMADol HCl ER 100 MG Oral Tablet Extended Release 24 Hour (Ultram ER)Indications:[place] osteoarthritis of both hands Take 1 Tablet by mouth in the morning and 1 Tablet before bedtime. 60 Tablet 0 09/30/2023 Active Lisinopril 10 MG Oral Tablet (Prinivil)Indicatio ns:HTN, goal below 140/90 Take 1 Tablet by mouth every evening. 90 Tablet 3 10/11/2023 Active documented as of this encounter (statuses as of 10/17/2023) Active Problems Problem Noted Date Diagnosed Date Moderate aortic valve stenosis 09/02/2021 VINCE (obstructive sleep apnea) 08/20/2021 Chronic kidney disease, stage 3b 03/24/2021 Overview: Per CKD protocol Coronary artery disease invo lving [place] coronary artery of [place] heart without angina pectoris 02/13/2019 Chronic systolic heart failure 02/13/2019 Type 2 diabetes mellitus wit h hemoglobin A1c goal of less than 8.0% 02/02/2019 HTN, goal below 130/80 12/15/2015 Overview: Per HTN Protocol #27. Old VA (myocardial infarction) 04/21/2015 Dyslipidemia 11/15/2012 Peripheral vascular disease 07/30/2009 S/P angioplasty with stent 08/09/2007 Bicuspid aortic valve Generalized osteoarthritis Fibromyalgia documented as of this encounter (statuses as of 10/17/2023) Resolved Problems Problem Noted Date Diagnosed Date [...] program 02/05/2019 05/12/2020 Overview: DO NOT DELETE [facility] DETECT Study: Project # [id number], Anesthesiologist Assistant Certified: Jona Mckeon, PhD. SUMMARY: Goal: Establish test [...] contact study staff at ; after hours Anesthesiologist Assistant Certified via the [facility] wrapping machine operator . Please contact study team before resolving/deleting from patients problem list. Study phone number: [phone]. Diagnosis changed due to Research Module. Go to Snapshot for study details. Encounter for examination fo r normal comparison and control in clinical research program 02/05/2019 06/10/2022 Overview: DO NOT DELETE [facility] Study: Project # [id number], Anesthesiologist Assistant Certified: Vipin Carvalho, MS, MPH. SUMMARY: Goal: Establish [...] contact study staff at ; after hours Anesthesiologist Assistant Certified via the [facility] wrapping machine operator . - Please contact study team before resolving/deleting from patients problem list. Study phone number: [phone]. Diagnosis changed due to Research Module. Go [...] 12/30/2021 Hiatal hernia 06/21/2018 12/30/2021 History of VA (myocardial infarction) 05/09/2018 12/30/2021 Vulvar lesion 05/09/2018 [...] 08/01/2008 Overview: Study Titile: Event Registry Project #[id number] PI: Rachna Manley MD Please call [phone] with study related questions [employer] Other*[id number] 06/29/2007 11/16/2016 Overview: Study Title: Genomic Markers for Patients with Cardiovascular Disease Project # [id number] Anesthesiologist Assistant Certified: Rachna Manley MD [phone] Type 2 diabetes mellitus wit h hemoglobin A1c goal of less than 7.0% 11/15/2005 08/07/2009 Overview: Per Diabetes Taxonomy. ICD-10 update of inactive term Spondylolisthesis 05/11/2004 12/30/2021 HTN, goal below 140/90 12/08/200011/06 Overview: Per HTN Taxonomy. S/P total knee replacement, left 04/05/2023 Erosive osteoarthritis of both hands 04/05/2023 documented as of this encounter (statuses as of 10/17/2023) Immunizations Name Administration Dates Next Due COVID-19 mRNA, LNP-s, No Pre serve, 2-Dose Series ([employer]) 10/06/2021,01/05/2021,12/09/2020 COVID-19, LNP-s, No Preserve , Angus-sucrose, [...] t, High Dose, No Preserve, IM 07/28/2019 TD - Tetanus/Diptheria (ADULT) 01/09/1996 TD, Preservative Free 01/09/1996 TDAP (age 10 and older)(Boostrix) 09/13/2019 TDAP (age 11 and older)(Adacel) 07/30/2009 Varicella Zoster Vaccine (Adult) 07/07/2015 Zoster Vaccine Recombinant (Shingrix) 06/25/2020 ,03/26/2020 documented as of this encounter Social History Tobacco Use Types Packs/Day Years Used Date Smoking Tobacco: Former Cigarettes 1 40 Q uit: 05/28/2015 Smokeless Tobacco: Never Alcohol Use Standard Drinks/Week Comments Yes 0 [...] on file documented as of this encounter Miscellaneous Notes * Telephone Encounter - Hannah Blanchard PHARM Tech - 10/17/2023 5:24 PM EST Pt calling in to verify no call out was made to her as she had a missed call. Advised no notes showing in chart from today of call out at this time. Thank You, Hannah Blanchard CPhT Finger Grip Machine Operator II [facility] ([facility]) 10/17/2023, 5:24 PM * Telephone Encounter - Chery Anderson CPhT - 10/17/2023 5:19 PM EST Pt calling into state she missed a call from [employer], no documents shown that a call was placed. Transferred pt to office. Thank you, Chery Anderson Bulb Grader [employer] [facility] 10/17/2023, 5:20 PM documented in this encounter Plan of Treatment Upcoming Encounters Date Type Department Care Team (Late st Contact Info) Description 10/19/2023 10:00 AM EST Therapy Psychology, [facility] [address] [place] [address] Beni Mares, PhD 200 [facility] [place] [address] 10/26/2023 11:20 AM EST Office Visit Nephrology, [facility] [address] [place] [address] Clint Myers MD 200 [facility] [place] [address] 11/18/2023 11:30 AM EST Office Visit Cardiology, [facility] [address] [place] [address] Chema Hayden MD [address] [place] [address] 12/12/2023 1:00 PM EST Office Visit Family Practice [facility] [address] [place] [address] Amrita Vergara CRNP [address] [place] [address] 02/23/2024 10:00 AM EDT Office Visit Rheumatology [address] [place] [address] Beni Fernandez MD [address] [place] [address] [place] [address] 03/15/2024 11:00 AM EDT Office Visit Pharmacy, [facility] [address] [place] [address] [facility] [address] [place] [address] 05/03/2024 5:40 PM EDT Office Visit Family Practice [facility] [address] [place] [address] Bartolome Villa, [address] [place] [address] Scheduled Procedures Name Priority Associated Diagnoses Date/Ti me COLONOSCOPY FLEXIBLE PROXIMA L DIAGNOSTIC Recall History of colonic polyps Health Maintenance Due Date Last Done Comments Hepatitis B (1 of 3 - Risk 3-dose series) 2011 COVID-19 Vaccine ( season) 2023 07/13/2022, 03/10/2022, 10/06/2021, Additional history exists CKD HGB USE SMARTSET 16571 09/09/202309/09, 09/09/2022, 06/04/2022, Additional history exists Depression Screening 09/22/2023 09/22/2022 GFR 10/21/2023 04/20/2023, 05/11, 11/17/2021, Additional history exists HbA1c 10/21/2023 04/20/2023, 05/11, 12/07/2021, Additional history exists Mammogram 04/08/2024 04/08/2023, 03/12, 04/06/2022, Additional history exists Albumin/Creatinine Ratio 04/20/2024 023, 03/25/2022, 10/30/2020, Additional history exists CKD PHOS USE SMARTSET 45208 04/20/202404/09, 11/17/2021, 03/26/2020, Additional history exists Diabetic [...] 07/07/2015 LUNG CANCER SCREENING - USE SMARTSET 40533 Completed 02/15/2023, 04/06/2022, 05/09/2020, Additional history exists [...] Not on filedocumented as of this encounter Advance Directives Latest Code Status on File Code Status Date Activated Date Inactivated Comments Full Code 07/04/2018 11:03 AM 07/04/2018 5:07 PM This order reflects the patients wishes and were consensually agreed upon. Care Teams Extrusion Engineer Relationship Specialty Start Date End Date Bartolome Villa DO [address] [address] PCP - General Family Medicine 02/16/23 documented as of this encounter
--- OUTSIDE RECORDS SUMMARY | 2023-10-27 07:02 | External Medical Summary | Summary of Care ---
Author Name Unknown Organization [facility] Address [address] [facility] [place] [address] Phone [phone] Care Team Providers Care Door Captain Name Role Phone Bartolome Villa Primary Care Provider Reason for Visit * Reason Comments Follow Up Encounter Details Date Type Department Care Team (Late st Contact Info) Description 10/19/2023 10:00 AM EST Therapy Psychology, [facility] [address] [place] [address] Beni Mares, PhD [address] [place] [address] Adjustment disorder with depressed mood* Allergies Active Allergy Reactions Criticality Noted Date Comments Iodinated Contrast Media Itching 08/18/2011 Sitagliptin Phosphate Other (Please comment) 03/07/2013 pancreatitis Niacin High 06/14/2019 Other reaction(s): HOT/BURNING FEELING documented as of this encounter (statuses as of 10/19/2023) Medications Medication Sig Dispensed Refills Start Date [...] 100 g 11 05/09/2018 Active Glucose Blood (Biomass CHPTOUCH ULTRA BLUE) STRPIndications:Typ e 2 diabetes mellitus [...] mg Oral QPM-1999, Reported on 06/02/2023 PEG 1865-SLi-SaHyl-NaCl -NaSulf 236 GM Oral Solution Reconstituted Please take according to Colonoscopy prep instructions. 4000 mL 0 01/21/2023 Active NovoLOG FlexPen 100 UNIT/ML Subcutaneous Solution Pen-injector INJECT 8-12 UNITS PRIOR TO EACH MEAL -EXTRA IF NEEDED BASED ON BLOOD SUGAR 30 mL 1 02/06/2023 Active Nystatin 937401 UNIT/GM External Cream Apply topically to affected [...] Oral Tablet Extended Release 24 Hour (Ultram ER)Indications:[place] leonor osteoarthritis of both hands Take 1 Tablet by mouth in the morning and 1 Tablet before bedtime. 60 Tablet 0 09/30/2023 Active Lisinopril 10 MG Oral Tablet (Prinivil)Indicatio ns:HTN, goal below 140/90 Take 1 Tablet by mouth every evening. 90 Tablet 3 10/11/2023 Active documented as of this encounter (statuses as of 10/19/2023) Active Problems Problem Noted Date Diagnosed Date Moderate aortic valve stenosis 09/02/2021 VINCE (obstructive sleep apnea) 08/20/2021 Chronic kidney disease, stage 3b 03/24/2021 Overview: Per CKD protocol Coronary artery disease invo lving wainwright coronary artery of wainwright heart without angina pectoris 02/13/2019 Chronic systolic heart failure 02/13/2019 Type 2 diabetes mellitus wit h hemoglobin A1c goal of less than 8.0% 02/02/2019 HTN, goal below 130/80 12/15/2015 Overview: Per HTN Protocol #27. Old [place] (myocardial infarction) 04/21/2015 Dyslipidemia 11/15/2012 Peripheral vascular disease 07/30/2009 S/P angioplasty with stent 08/09/2007 Bicuspid aortic valve Generalized osteoarthritis Fibromyalgia documented as of this encounter (statuses as of 10/19/2023) Resolved Problems Problem Noted Date Diagnosed Date [...] program 02/05/2019 05/12/2020 Overview: DO NOT DELETE [facility] DETECT Study: Project # [id number], Setter Cold Rolling Machine: Jona Mckeon, PhD. SUMMARY: Goal: Establish test [...] contact study staff at ; after hours Setter Cold Rolling Machine via the [facility] hospital in flight refueling operator . Please contact study team before resolving/deleting from patients problem list. Study phone number: [phone]. Diagnosis changed due to Research Module. Go to Snapshot for study details. Encounter for examination fo r normal comparison and control in clinical research program 02/05/2019 06/10/2022 Overview: DO NOT DELETE - [facility] [place] Study: Project # [id number], Setter Cold Rolling Machine: Vipin Carvalho, MS, MPH. SUMMARY: Goal: Establish [...] contact study staff at ; after hours Setter Cold Rolling Machine via the [facility] hospital in flight refueling operator . - Please contact study team before resolving/deleting from patients problem list. Study phone number: [phone]. Diagnosis changed due to Research Module. Go [...] 12/30/2021 Hiatal hernia 06/21/2018 12/30/2021 History of [place] (myocardial infarction) 05/09/2018 12/30/2021 Vulvar lesion 05/09/2018 [...] 08/01/2008 Overview: Study Titile: Event Registry Project #[id number] PI: Rachna Manley MD Please call [phone] with study related questions [employer] Research Other*[id number] 06/29/2007 11/16/2016 Overview: Study Title: Genomic Markers for Patients with Cardiovascular Disease Project # [id number] Setter Cold Rolling Machine: Rachna Manley MD [phone] Type 2 diabetes mellitus wit h hemoglobin A1c goal of less than 7.0% 11/15/2005 08/07/2009 Overview: Per Diabetes Taxonomy. ICD-10 update of inactive term Spondylolisthesis 05/11/2004 12/30/2021 HTN, goal below 140/90 12/08/200011/06 Overview: Per HTN Taxonomy. S/P total knee replacement, left 04/05/2023 Erosive osteoarthritis of both hands 04/05/2023 documented as of this encounter (statuses as of 10/19/2023) Immunizations Name Administration Dates Next Due COVID-19 mRNA, LNP-s, No Pre serve, 2-Dose Series (WaveCheck) 10/06/2021,01/05/2021,12/09/2020 COVID-19, LNP-s, No Preserve , Angus-sucrose, Ages 12+ (WaveCheck) 03/10/2022 Covid-19, Mrna, Lnp-s, Pf, B ivalent, 30 Mcg, IM, 12 yrs and above (WaveCheck) 07/13/2022 Pneumococcal Conjugate Vacc, 13 Valent (Prevnar) [...] on file documented as of this encounter Progress Notes * Beni Mares, PhD - 10/19/2023 3:14 PM EST Patient location: CLINIC. I was in the same facility as the patient. After connecting through [employer], patient was verified with two unique identifiers. 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 My office door was closed. No one else was in the room with me. Patient acknowledged consentand understanding of privacy and security of the Telemedicine visit, and gave permission to have a telemedicine presenter stay in the room in order to assist with the history and to conduct the exam as needed. I informed the patient that I have reviewed their record in [facility] and presented the opportunity for them to ask any questions regarding the visit today. The patient agreed to participate. Provider reviewed elements of Outpatient Services Description including limits of confidentiality, how to contact the department, risks and benefits of treatment and consent for treatment. Start Time: 1000 Stop Time: 1045 Total direct [id number]-[id number] time: 45 minutes BEHAVIORAL MEDICINE PROGRESS NOTE Psychology, Sami [facility] [address] [place] [address] 10/19/23 1000 TYPE OF VISIT: Individual DIAGNOSIS: Adjustment Disorder with Depressed Mood REASON FOR FOLLOW-UP: Individual therapy Session #: 8 SESSION FOCUS: daughter; current stressors NOTES: I did not administer the FINN 7 or PHQ 9. Safety was evaluated verbally. She denied SI/HI. Pt reported that her daughter is scheduled to finally come home today after about 30 days in the hospital. They are still not sure about the diagnosis, but it seems to have been a virus that was exacerbated byher autoimmune condition. She was able to go stay with her brother in [place] while her daughter was being treated at [place]. She continues to think about what to do with her house. It has become to hard to manage it. Her son is ready to move out on his own. However, Lillian loves the house. She worries about how difficult it would be to get it ready to sell and to deal with 40+ years of accumulated stuff. She admits that she tends to hold onto things for sentimental reasons and probably has kept things for too long. PROGRESS TOWARDS GOALS: Goal: Improved self-management of mood Objective Measures: COLUMBIA-SUICIDE SEVERITY RATING SCALE Frequent Screener Ask questions that are bold and underlined Since Last Contact (Flako with an X) YES NO Have you actually had thoughts about killing yourself? x If YES, ask the following questions. If NO, go directly to the last question Have you been thinking about how you might do this? Have you had these thoughts and had some intention of acting on them? E.g. I thought about taking an overdose, but I never made a specific plan as to when where or how I would actually do it.and I would never go through with it. Have you started to work out or worked out the details of how to kill yourself? Do you intend to carry out this plan? As opposed to I have the thoughts, but I definitely will not do anything about them. Have you done anything, started to do anything, or prepared to do anything to end your life? Examples: Collected pills, obtained a gun, gave away valuables, wrote a will or suicide note, took out pills but didn't swallow any, held a gun but changed your mind or it was grabbed from your hand,went to the roof but didn't jump; or actually took pills, tried to shoot yourself, cut yourself, tried to hang yourself, etc. x Low Risk Complete or review crisis plan with patient Discuss risk/protective factors and reasons for living Moderate Risk Complete or review crisis plan with patient Discuss risk/protective factors and reasons for living Discuss removal of means High Risk Maintain 1 to 1 monitoring until assessment is completed Evaluate for higher level of care (Inpatient or PHP) Consultation with Emergency Services as appropriate If patient not admitted: Complete or review crisis plan with patient Discuss risk/protective factors and reasons for living Advise removal of means Consider family or collateral contact to promote safety Schedule follow up care consistent with assessment Patient Health Questionnaire (PHQ-9): 11 (0-4 Min; Mild -5-9; Moderate 10-14; Mod Severe 15-19; Severe 20+); 07/01/23: 2; 07/15/23 PHQ-9, item 9 = 0 (if anything but 0 administer [place]); 07/01/23: 0 Generalized Anxiety Disorder (FINN-7): 4 (0-4 Min; Mild -5-9; Moderate 10-14; Severe 15+); 07/01/23: 3; 07/15/23: 8 INTERVENTION: Outpatient Adult Therapy Treatment Plan Treatment plan was developed on 06/01/23, treatment will continue to focus on goals below; Treatment update will occur when clinically indicated or by 11/27/2023. Patient's goals captured in patient's words: "not feel sad" Expected family or significant other involvement: Not applicable Type of Service:Individual Patients Strengths and Facilitating Factors to care: Recognizes need for change and Seeking help Treatment Barriers: none identified Crisis Planning: What I can do if I ever experience a crisis (much worse symptoms, severe distress or thoughts of self-harm): Exercise/Walk, Prayer/Tanya, and go outside People I can call in the event of a crisis: Spouse/partner/significant other: Lillian (); Amrit (Son) Additional resources I can utilize if the previous steps are ineffective (e.g: ED, hotlines): Suicide and Crisis Lifeline - 988 Signature Obtained on Treatment Plan Patient/ Family Received Copy of Treatment Plan Duration of Treatment Frequency of Treatment No Patient has access to MyChart 8-11 sessions every other week Patient Identified Needs/Goals Interventions Objective/ Discharge Criteria Problem/Need 1: Depression Cognitive Behavioral Therapy (CBT), which includes psychoeducation, cognitive restructuring, relaxation/diaphragmatic breathing, problem-solving, and behavioral activation and Other: Interpersonal Therapy PHQ<5 and FINN<5 Please choose a method to track patient's improvement based on clinical assessment: PHQ-9 Adult Data FINN-7 Data PATIENT EDUCATION: Verbal & written MENTAL STATUS AND BEHAVIORAL OBSERVATIONS: Appearance: within normal limits Behavior: within normal limits Speech: normal pitch, rate and volume Affect: Congruent with content of conversation Thought Process: within normal limits and goal directed Thought Content: within normal limits Intellectual Function: within normal limits Sensorium: alert and oriented to person, place, time and situation Cognition: grossly intact Insight/Judgment: good Suicide/Homicidal Assessment Validated Screening and Assessment Measures PHQ-9, item 9: NEGATIVE C-SSRS administered yes Risk Factors: - Current SI/HI (including frequency and duration): no - Current plan: no - Current intent: no - Suicide attempt or self-harm in the last 3 months: no - Access to means (if firearms and/or medications are present, complete lethal means reduction): n/a - Lethal means access reduction steps taken: n/a - History of suicide attempts/self harm: no - Preparations (giving possessions away, making a will): no - Recent stressors/losses (job loss, medical diagnosis, relationship loss: no - Otherr fixed/chronic risk factors: chronic pain - Other modifiable risk factors: n/a Protective factors: -sense of responsibility to children/pets/others: yes - social connectedness: yes -willingness to engage in mental health services: yes -future-oriented thinking/planning: yes -coping/social/emotion regulation/self-soothing skills present: yes -has cultural or anabaptism beliefs that discourage suicide: yes Risk Level Impression: -Low risk: Initiate outpatient therapy; safety plan may still be indicated; provided crisis numbers Crisis Plan: PLAN INCLUDED IN TREATMENT PLAN FOLLOW-UP PLAN: Return: 2 weeks Action Plan: 1. Continue Cognitive Behavioral Therapy Treatment plan reviewed with the patient. Patient voices understanding and concurs with plan. Beni Mares, PhD Division of Psychiatry & Behavioral Medicine [facility] [phone] documented in this encounter Plan of Treatment Upcoming Encounters Date Type Department Care Team (Late st Contact Info) Description 10/26/2023 11:20 AM EST [facility] [address] [place] [address] Clint Myers MD [address] [place] [address] 11/02/2023 10:00 AM EST Therapy Psychology, [facility] [address] [place] [address] Beni Mares, PhD [address] [facility] [place] [address] 11/18/2023 11:30 AM EST Office Visit Cardiology, [facility] [address] [place] [address] Chema Hayden MD [address] [place] [address] 12/12/2023 1:00 PM EST Office Visit Family Practice [facility] [address] [address] Amrita Vergara CRNP [address] [place] [address] 02/23/2024 10:00 AM EDT Office Visit Rheumatology [place] [address] [facility] [place] [address] Beni Fernandez MD [facility] [place] [address] 03/15/2024 11:00 AM EDT Office Visit Pharmacy, [facility] [address] [place] [address] [facility] [address] [place] [address] 05/03/2024 5:40 PM EDT Office Visit [facility] [address] [place] [address] Bartolome Villa DO [address] [place] [address] Scheduled Procedures Name Priority Associated Diagnoses Date/Ti me COLONOSCOPY FLEXIBLE PROXIMA L DIAGNOSTIC Recall History of colonic polyps Health Maintenance Due Date Last Done Comments Hepatitis B (1 of 3 - Risk 3-dose series) 2011 COVID-19 Vaccine ( season) 2023 07/13/2022, 03/10/2022, 10/06/2021, Additional history exists CKD HGB USE SMARTSET 48358 09/09/202309/09, 09/09/2022, 06/04/2022, Additional history exists Depression Screening 09/22/2023 09/22/2022 GFR 10/21/2023 04/20/2023, 05/11, 11/17/2021, Additional history exists HbA1c 10/21/2023 04/20/2023, 05/11, 12/07/2021, Additional history exists Mammogram 04/08/2024 04/08/2023, 03/12, 04/06/2022, Additional history exists Albumin/Creatinine Ratio 04/20/2024 023, 03/25/2022, 10/30/2020, Additional history exists CKD PHOS USE SMARTSET 43982 04/20/2024 0711/2022, 11/17/2021, 03/26/2020, Additional history exists Diabetic Eye [...] 07/07/2015 LUNG CANCER SCREENING - USE SMARTSET 24694 Completed 02/15/2023, 04/06/2022, 05/09/2020, Additional history exists [...] as of this encounter Visit Diagnoses Diagnosis Adjustment disorder with depressed mood- Primary documented in this encounter Advance Directives Latest Code Status on File Code Status Date Activated Date Inactivated Comments Full Code 07/04/2018 11:03 AM 07/04/2018 5:07 PM This order reflects the patients wishes and were consensually agreed upon. Care Teams Door Captain Relationship Specialty Start Date End Date Bartolome Villa DO [address] [place] [address] PCP - General Family Medicine 02/16/23 documented as of this encounter
--- OUTSIDE RECORDS SUMMARY | 2023-10-27 07:02 | External Medical Summary | Summary of Care ---
Author Name Unknown Organization [facility] Address [address] [address] Phone [phone] Care Team Providers Care Architecture Analyst Name Role Phone Bartolome Villa DO Primary Care Provider Reason for Visit * Reason Comments Dosage Adjustment In Person (Anticoag Cl inic) Diabetes Follow-Up Encounter Details Date Type Department Care Team (Latest Contact Info) Description 10/13/2023 10:40 AM EST Office Visit Pharmacy, [facility] [address] [place] [address] [facility] [address] [facility] [place] [facility] [place] [address] Erosive osteoarthritis of both hands* Allergies Active Allergy Reactions Criticality Noted Date Comments Iodinated Contrast Media Itching 08/18/2011 Sitagliptin Phosphate Other (Please comment) 03/07/2013 pancreatitis Niacin High 06/14/2019 Other reaction(s): HOT/BURNING FEELING documented as of this encounter (statuses as of 10/13/2023) Medications Medication Sig Dispensed Refills Start Date [...] 100 g 11 05/09/2018 Active Glucose Blood (Ku6TOUCH ULTRA BLUE) STRPIndications:Typ e 2 diabetes mellitus [...] mg Oral QPM-1999, Reported on 06/02/2023 PEG 3965-XXr-InYhm-NaCl -NaSulf 236 GM Oral Solution Reconstituted Please take according to Colonoscopy prep instructions. 4000 mL 0 01/21/2023 Active NovoLOG FlexPen 100 UNIT/ML Subcutaneous Solution Pen-injector INJECT 8-12 UNITS PRIOR TO EACH MEAL -EXTRA IF NEEDED BASED ON BLOOD SUGAR 30 mL 1 02/06/2023 Active Nystatin 070004 UNIT/GM External Cream Apply topically to affected [...] Oral Tablet Extended Release 24 Hour (Ultram ER)Indications:[place] leonor osteoarthritis of both hands Take 1 Tablet by mouth in the morning and 1 Tablet before bedtime. 60 Tablet 0 09/30/2023 Active Lisinopril 10 MG Oral Tablet (Prinivil)Indicatio ns:HTN, goal below 140/90 Take 1 Tablet by mouth every evening. 90 Tablet 3 10/11/2023 Active documented as of this encounter (statuses as of 10/13/2023) Active Problems Problem Noted Date Diagnosed Date Moderate aortic valve stenosis 09/02/2021 VINCE (obstructive sleep apnea) 08/20/2021 Chronic kidney disease, stage 3b 03/24/2021 Overview: Per CKD protocol Coronary artery disease invo lving [place] coronary artery of [place] heart without angina pectoris 02/13/2019 Chronic systolic heart failure 02/13/2019 Type 2 diabetes mellitus wit h hemoglobin A1c goal of less than 8.0% 02/02/2019 HTN, goal below 130/80 12/15/2015 Overview: Per HTN Protocol #27. Old KS (myocardial infarction) 04/21/2015 Dyslipidemia 11/15/2012 Peripheral vascular disease 07/30/2009 S/P angioplasty with stent 08/09/2007 Bicuspid aortic valve Generalized osteoarthritis Fibromyalgia documented as of this encounter (statuses as of 10/13/2023) Resolved Problems Problem Noted Date Diagnosed Date [...] program 02/05/2019 05/12/2020 Overview: DO NOT DELETE [facility] DETECT Study: Project # [id number], Car Repairer Helper: Jona Mckeon, PhD. SUMMARY: Goal: Establish test [...] contact study staff at ; after hours Car Repairer Helper via the [facility] clicking machine operator . Please contact study team before resolving/deleting from patients problem list. Study phone number: [phone]. Diagnosis changed due to Research Module. Go to Snapshot for study details. Encounter for examination fo r normal comparison and control in clinical research program 02/05/2019 06/10/2022 Overview: DO NOT DELETE - [facility] DETECT Study: Project # [id number], Car Repairer Helper: Vipin Carvalho, MS, MPH. SUMMARY: Goal: Establish [...] contact study staff at ; after hours Car Repairer Helper via the [facility] hospital clicking machine operator . - Please contact study team before resolving/deleting from patients problem list. Study phone number: [phone]. Diagnosis changed due to Research Module. Go to [employer]Care's for study details. Type 2 diabetes mellitus wit h stage 3 chronic kidney disease, with long-term current use of insulin 02/02/2019 02/19/2021 Overview: Per CKD protocol Hypertensive kidney disease with chronic kidney disease stage III 02/02/2019 03/20/2019 ADVANCE DIRECTIVE INFORMATION 01/03/2019 12/30/2021 Overview: Information given at previous visit Depression 06/21/2018 12/30/2021 Hiatal hernia 06/21/2018 12/30/2021 History of KS (myocardial infarction) 05/09/2018 12/30/2021 Vulvar lesion 05/09/2018 [...] 08/01/2008 Overview: Study Titile: Event Registry Project #[id number] PI: Rachna Manley MD Please call [phone] with study related questions [employer] Other*[id number] 06/29/2007 11/16/2016 Overview: Study Title: Genomic Markers for Patients with Cardiovascular Disease Project # [id number] Car Repairer Helper: Rachna Manley MD [phone] Type 2 diabetes mellitus wit h hemoglobin A1c goal of less than 7.0% 11/15/2005 08/07/2009 Overview: Per Diabetes Taxonomy. ICD-10 update of inactive term Spondylolisthesis 05/11/2004 12/30/2021 HTN, goal below 140/90 12/08/200011/06 Overview: Per HTN Taxonomy. S/P total knee replacement, left 04/05/2023 Erosive osteoarthritis of both hands 04/05/2023 documented as of this encounter (statuses as of 10/13/2023) Immunizations Name Administration Dates Next Due COVID-19 mRNA, LNP-s, No Pre serve, 2-Dose Series ([employer]) 10/06/2021,01/05/2021,12/09/2020 COVID-19, LNP-s, No Preserve , Angus-sucrose, [...] as of this encounter Progress Notes * Tosha Liu, [facility] ED - 10/13/2023 10:43 AM EST Images from the original note were not included. Medication Therapy [facility] - Chronic Pain Management Progress Note 10/13/2023 Zaina London, identified by name and date of , is a 73 year old female being seen for chronic pain management/education. Referring Physician: Dr. Villa Medication Agreement: on filed 03/25/[address] Villa Patient Pharmacy: [facility] CHIEF COMPLAINT: arthritis HPI: Notes doing well with pain medication Notes DM has been well controlled as well Dealing with her daugher being in the hospital for over a month now Pain described as: achy, sharp, dull, sharp radiating pain with sciatica Sleep: hard to sleep due to legs Palliating factors: laying down helps/half reclined, cold, gardening Exacerbating factors: steps, walking some times Other interventions tried: back surgery, not a candidate for injections Worst time of day for pain: evening Imaging: n/a Psych History: depression Neurological Hx: none Cardiac Hx: KS x3 Renal Hx: CKD Hepatic Hx: none Other: none Illicit Substance/Rx/Alcohol Abuse: no Opioid Risk Assessment Tool (BRQ): 0 Daily MME: 57.5 PDMP Reviewed (10/13/23): Functional Goal: QOL Current Pain Level (10/13/23): stable Pain Level (06/17/23): no change Pain Level (04/08/23): Stable Pain Level (11/19/22): stable Pain Level (08/13/22): stable Pain Level (03/05/22): stable Pain Level (12/31/2021): stable Pain Level (10/01/2021): slightly increased Pain Level (07/01/21): stable Pain Level (03/25/21): worse Pain Level (: controlled Pain Level (09/10/20): manageable Pain Level (06/03/20): Same Pain Level Initial visit (04/15/2020): 6-7/10 on worst days Past Pain Medications: Tylenol, Flexeril Cymbalta - "brain fog" Current Pain Medications: Gabapentin 300 AM and 600 PM Tramadol ER 100 BID Oxycodone 5 mg q8h PRN - only taking at night PRN Prednisone 5 mg daily Diclofenac gel PRN Current DM Medications: NPH 30 units BID Novolog 8-12 units with meals Creatinine Clearance: Serum creatinine: 1.3 mg/dL (H) 04/20/23 1254 Estimated creatinine clearance: 43.5 mL/min (A) Creatinine Results: Recent Labs Units 04/20/23 1254 06/04/22 1116 11/17/21 1152 CREATININE - [facility] mg/dL 1.3* 1.3* 1.2* Hepatic Function (ALT): Recent Labs Units 04/20/23 1254 ALT - [facility] U/L 20 Comprehensive Metabolic Panel Results: Results for orders placed or performed in visit on 04/20/23 COMPREHENSIVE METABOLIC PANEL Result Value Ref Range BUN 28 (H) 6 - 20 mg/dL Creatinine 1.3 (H) 0.5 - 1.0 mg/dL Estimated Glomerular Filtration Rate 43 (L) >=60 mL/min Sodium 138 135 - 146 mmol/L Potassium 4.9 3.5 - 5.1 mmol/L Chloride 102 98 - 107 mmol/L CO2 24 22 - 32 mmol/L Anion Gap 12 7 - 15 mmol/L Glucose 157 (H) 70 - 120 mg/dL Albumin 3.9 3.8 - 5.0 g/dL AST 17 10 - 35 U/L Alkaline Phosphatase 59 35 - 130 U/L Bilirubin, Total 0.6 <=1.2 mg/dL Calcium 9.2 8.4 - 10.2 mg/dL Protein 6.7 6.0 - 8.3 g/dL ALT 20 10 - 35 U/L ASSESSMENT: Patient aware MTM is a clinical pharmacist visit, with focus on medication options for current diagnoses referred by Primary Care Provider for review and optimization. Focus of this visit is Medication Optimization. Current concerns: currently stable with pain/DM Adherence: Reviewed current regimen, patient is adherent to regimen. Treatment options: continue current medications Treatment concerns: none at this time Education provided: n/a I have evaluated the patient for the appropriateness and necessity of opioid pain medications. Patient has been educated towards the benefits and risks of opioid medications, including dependence, addiction, and overdose. Patient is aware of the requirements set out in the medication use agreement,including the need for routine urine drug screening. No red flags for abuse or misuse have been exhibited. PLAN: Continue current medications Medication changes: no change Current Pain Medications: Gabapentin 300 AM and 600 PM Tramadol ER 100 BID Oxycodone 5 mg q8h PRN - only taking at night PRN Prednisone 5 mg daily Diclofenac gel PRN Current DM Medications: NPH 30 units BID Novolog 8-12 units with meals Patient verbalized understanding of the plan. Contact clinic with any issues. FOLLOW UP: Return to clinic in 6 months 03/15/2024 Tosha Liu RPh Clinical Pharmacist - [facility] 10/13/2023, 10:43 AM documented in this encounter Plan of Treatment Upcoming Encounters Date Type Department Care Team (Late st Contact Info) Description 10/17/2023 2:40 PM EST Office Visit Nephrology, [facility] [address] [place], [place] [address] Clint Myers MD [address] [place] [address] 10/19/2023 10:00 AM EST Therapy Psychology, [facility] [address] [place] [address] Beni Mares, PhD [address] [place] [address] 11/18/2023 11:30 AM EST Office Visit Cardiology, [facility] [address] [place] [address] Chema Hayden MD [address] [place] [address] 12/12/2023 1:00 PM EST Office Visit Family Practice [facility] [address] [facility] [place] [address] Amrita Vergara CRNP [address] [place] [address] 02/23/2024 10:00 AM EDT Office Visit Rheumatology [address] [place], [place] [address] Beni Fernandez MD [address] [place] [address] [place], [place] [address] 03/15/2024 11:00 AM EDT [facility] [place] [address] [facility] [place] [address] 05/03/2024 5:40 PM EDT Office Visit Family Practice [facility] [place] [address] Bartolome Villa, DO [address] [place] [address] Scheduled Procedures Name Priority Associated Diagnoses Date/Ti me COLONOSCOPY FLEXIBLE PROXIMA L DIAGNOSTIC Recall History of colonic polyps Health Maintenance Due Date Last Done Comments Hepatitis B (1 of 3 - Risk 3-dose series) 2011 COVID-19 Vaccine ( season) 2023 07/13/2022, 03/10/2022, 10/06/2021, Additional history exists CKD HGB USE SMARTSET 98959 09/09/202309/09, 09/09/2022, 06/04/2022, Additional history exists Depression Screening 09/22/2023 09/22/2022 GFR 10/21/2023 04/20/2023, 05/11, 11/17/2021, Additional history exists HbA1c 10/21/2023 04/20/2023, 05/11, 12/07/2021, Additional history exists Mammogram 04/08/2024 04/08/2023, 03/12, 04/06/2022, Additional history exists Albumin/Creatinine Ratio 04/20/2024 023, 03/25/2022, 10/30/2020, Additional history exists CKD PHOS USE SMARTSET 70714 04/20/202404/09, 11/17/2021, 03/26/2020, Additional history exists Diabetic [...] 07/07/2015 LUNG CANCER SCREENING - USE SMARTSET 54011 Completed 02/15/2023, 04/06/2022, 05/09/2020, Additional history exists [...] as of this encounter Visit Diagnoses Diagnosis Erosive osteoarthritis of both hands- Primary documented in this encounter Advance Directives Latest Code Status on File Code Status Date Activated Date Inactivated Comments Full Code 07/04/2018 11:03 AM 07/04/2018 5:07 PM This order reflects the patients wishes and were consensually agreed upon. Care Teams Architecture Analyst Relationship Specialty Start Date End Date aBrtolome Villa DO [address] [place] [address] PCP - General Family Medicine 02/16/23 documented as of this encounter
--- OUTSIDE RECORDS SUMMARY | 2023-10-27 07:02 | External Medical Summary | Summary of Care ---
Author Name Unknown Organization [facility] Address [address] [facility] [place] [address] Phone [phone] Care Team Providers Care Medical Genetics Director Name Role Phone Sumit Villa DO Primary Care Provider Reason for Visit * Reason Onset Date Comments Medication Refill 10/24/2023 Encounter Details Date Type Department Care Team (Late st Contact Info) Description 10/24/2023 Refill Pharmacy, [facility] [address] [place] [address] Sumit Villa DO [address] [place] [address] Allergies Active Allergy Reactions Criticality Noted Date Comments Iodinated Contrast Media Itching 08/18/2011 Sitagliptin Phosphate Other (Please comment) 03/07/2013 pancreatitis Niacin High 06/14/2019 Other reaction(s): HOT/BURNING FEELING documented as of this encounter (statuses as of 10/25/2023) Medications Medication Sig Dispensed Refills Start Date End Date Status ONE TOUCH GLUCOSE MONITOR KITIndications:Impa ired fasting glucose use daily 1 0 5 Active ASPIRIN 81 MG PO TABSIndications:Old [...] to toes 100 g 11 8 Active Glucose Blood (ONETOUCH ULTRA BLUE) STRPIndications:Typ [...] 40 mg Oral QPM-2000, Reported on 06/02/2023 PEG 3159-SBp-YyGaz-NaCl -NaSulf 236 GM Oral Solution Reconstituted Please take according to Colonoscopy prep instructions. 4000 mL 0 3 Active NovoLOG FlexPen 100 UNIT/ML Subcutaneous Solution Pen-injector INJECT 8-12 UNITS PRIOR TO EACH MEAL -EXTRA IF NEEDED BASED ON BLOOD SUGAR 30 mL 1 3 Active Nystatin 656524 UNIT/GM External Cream Apply topically to affected [...] mouth daily. 30 Tablet 11 3 Active Prasugrel HCl 10 MG Oral Tablet [...] Oral Tablet Extended Release 24 Hour (Ultram ER)Indications:[place] leonor osteoarthritis of both hands Take 1 Tablet by mouth in the morning and 1 Tablet before bedtime. 60 Tablet 0 3 Active Lisinopril 10 MG Oral Tablet (Prinivil)Indicatio ns:HTN, goal below 140/90 Take 1 Tablet by mouth every evening. 90 Tablet 3 4 Active oxyCODONE HCl 5 MG Oral Tablet (Oxy IR) Take 1 Tablet by mouth every 8 hours as needed for Pain, Severe. 20 Tablet 0 4 Active oxyCODONE HCl 5 MG Oral Tablet (Oxy IR) Take 1 Tablet by mouth every 8 hours as needed for Pain, Severe. 20 Tablet 0 3 10/24/19 24 Discontinu ed(Refill) documented as of this encounter (statuses as of 10/25/2023) Active Problems Problem Noted Date Diagnosed Date Moderate aortic valve stenosis 09/02/2021 VINCE (obstructive sleep apnea) 08/20/2021 Chronic kidney disease, stage 3b 03/24/2021 Overview: Per CKD protocol Coronary artery disease invo lving [place] coronary artery of [place] heart without angina pectoris 02/13/2019 Chronic systolic heart failure 02/13/2019 Type 2 diabetes mellitus wit h hemoglobin A1c goal of less than 8.0% 02/02/2019 HTN, goal below 130/80 12/15/2015 Overview: Per HTN Protocol #27. Old [place] (myocardial infarction) 04/21/2015 Dyslipidemia 11/15/2012 Peripheral vascular disease 07/30/2009 S/P angioplasty with stent 08/09/2007 Bicuspid aortic valve Generalized osteoarthritis Fibromyalgia documented as of this encounter (statuses as of 10/25/2023) Resolved Problems Problem Noted Date Diagnosed Date [...] program 02/05/2019 05/12/2020 Overview: DO NOT DELETE [facility] DETECT Study: Project # [id number], Dry Pan Charger: Jona Mckeon, PhD. SUMMARY: Goal: Establish test [...] contact study staff at ; after hours Dry Pan Charger via the [place] otr owner operator truck driver . Please contact study team before resolving/deleting from patients problem list. Study phone number: [phone]. Diagnosis changed due to Research Module. Go to Snapshot for study details. Encounter for examination fo r normal comparison and control in clinical research program 02/05/2019 06/10/2022 Overview: DO NOT DELETE [facility] Study: Project # [id number], Dry Pan Charger: Vipin Carvalho, MS, MPH. SUMMARY: Goal: Establish [...] contact study staff at ; after hours Dry Pan Charger via the [place] otr owner operator truck driver . - Please contact study team before resolving/deleting from patients problem list. Study phone number: [phone]. Diagnosis changed due to Research Module. Go to [employer] for study details. Type 2 diabetes mellitus wit h stage 3 chronic kidney disease, with long-term current use of insulin 02/02/2019 02/19/2021 Overview: Per CKD protocol Hypertensive kidney disease with chronic kidney disease stage III 02/02/2019 03/20/2019 ADVANCE DIRECTIVE INFORMATION 01/03/2019 12/30/2021 Overview: Information given at previous visit Depression 06/21/2018 12/30/2021 Hiatal hernia 06/21/2018 12/30/2021 History of SC (myocardial infarction) 05/09/2018 12/30/2021 Vulvar lesion 05/09/2018 [...] 08/01/2008 Overview: Study Titile: Event Registry Project #[id number] PI: Rachna Manley MD Please call [phone] with study related questions [employer] Other*[id number] 06/29/2007 11/16/2016 Overview: Study Title: Genomic Markers for Patients with Cardiovascular Disease Project # [id number] Dry Pan Charger: Rachna Manley MD [phone] Type 2 diabetes mellitus wit h hemoglobin A1c goal of less than 7.0% 11/15/2005 08/07/2009 Overview: Per Diabetes Taxonomy. ICD-10 update of inactive term Spondylolisthesis 05/11/2004 12/30/2021 HTN, goal below 140/90 12/08/200011/06 Overview: Per HTN Taxonomy. S/P total knee replacement, left 04/05/2023 Erosive osteoarthritis of both hands 04/05/2023 documented as of this encounter (statuses as of 10/25/2023) Immunizations Name Administration Dates Next Due COVID-19 mRNA, LNP-s, No Pre serve, 2-Dose Series ([employer]) 10/06/2021,01/05/2021,12/09/2020 COVID-19, LNP-s, No Preserve , Angus-sucrose, Ages 12+ (Pfizer) 03/10/2022 Covid-19, Mrna, Lnp-s, Pf, B ivalent, 30 Mcg, IM, 12 yrs and above ([employer]) 07/13/2022 Pneumococcal Conjugate Vacc, 13 Valent (Prevnar) [...] encounter Miscellaneous Notes * Telephone Encounter - Sumit Villa DO - 10/25/2023 7:50 AM EST Signed Prescriptions: Disp Refills oxyCODONE HCl 5 MG Oral Tablet (Oxy IR) 20 Tab*0 Sig: Take 1 Tablet by mouth every 8 hours as needed for Pain, Severe. Authorizing Provider: SUMIT VILLA * Telephone Encounter - Tosha Liu, [facility] - 10/24/2023 3:12 PM EST Pending Prescriptions: Disp Refills oxyCODONE HCl 5 MG Oral Tablet (Oxy IR) 20 Tab*0 Sig: Take 1 Tablet by mouth every 8 hours as needed for Pain, Severe. documented in this encounter Plan of Treatment Upcoming Encounters Date Type Department Care Team (Late st Contact Info) Description 10/26/2023 11:20 AM EST Office Visit Nephrology, [facility] [address] [place] [address] Clint Myers MD [address] [place] [address] 11/02/2023 10:00 AM EST Therapy Psychology, [facility] [address] [place] [address] Beni Mares, PhD [address] [facility] [place] [place] [address] 11/18/2023 11:30 AM EST Office Visit Cardiology, [facility] [address] [address] Chema Hayden MD [address] [place] [address] 12/12/2023 1:00 PM EST Office Visit Family Practice [facility] [address] [place] [address] Amrita Vergara CRNP [address] [place] [address] 02/23/2024 10:00 AM EDT Office Visit Rheumatology [place] [address] [facility] [place] [address] Beni Fernandez MD [address] [facility] [place] [address] 03/15/2024 11:00 AM EDT Office Visit Pharmacy, [facility] [address] [place] [address] [facility] [address] [place] [address] 05/03/2024 5:40 PM EDT Office Visit Family Practice [facility] [address] [place] [address] Sumit Villa DO [address] [place] [address] Scheduled Procedures Name Priority Associated Diagnoses Date/Ti me COLONOSCOPY FLEXIBLE PROXIMA L DIAGNOSTIC Recall History of colonic polyps Health Maintenance Due Date Last Done Comments Hepatitis B (1 of 3 - Risk 3-dose series) 2011 COVID-19 Vaccine ( season) 2023 07/13/2022, 03/10/2022, 10/06/2021, Additional history exists CKD HGB USE SMARTSET 45781 09/09/202309/09, 09/09/2022, 06/04/2022, Additional history exists Depression Screening 09/22/2023 09/22/2022 GFR 10/21/2023 04/20/2023, 05/11, 11/17/2021, Additional history exists HbA1c 10/21/2023 04/20/2023, 05/11, 12/07/2021, Additional history exists Mammogram 04/08/2024 04/08/2023, 03/12, 04/06/2022, Additional history exists Albumin/Creatinine Ratio 04/20/2024 023, 03/25/2022, 10/30/2020, Additional history exists CKD PHOS USE SMARTSET 20349 04/20/202404/09, 11/17/2021, 03/26/2020, Additional history exists Diabetic [...] 07/07/2015 LUNG CANCER SCREENING - USE SMARTSET 00776 Completed 02/15/2023, 04/06/2022, 05/09/2020, Additional history exists [...] and were consensually agreed upon. Care Teams Medical Genetics Director Relationship Specialty Start Date End Date Sumit Villa DO [address] [place] [address] PCP - General Family Medicine 02/16/23 documented as of this encounter
--- OUTSIDE RECORDS SUMMARY | 2023-10-27 07:02 | External Medical Summary | Summary of Care ---
Author Name Unknown Organization [facility] Address [address] [facility] [place] [address] Phone [phone] Care Team Providers Care Agricultural Produce Sorter Name Role Phone Bartolome Villa DO Primary Care Provider Reason for Visit * Reason Onset Date Comments Other 10/17/2023 Encounter Details Date Type Department Care Team (Late st Contact Info) Description 10/17/2023 Telephone Family Practice [facility] [address] [place] [address] Bartolome Villa DO [address] [place] [address] Other Allergies Active Allergy Reactions Criticality Noted [...] mg Oral QPM-1999, Reported on 06/02/2023 PEG 0856-PHp-DlBbe-NaCl -NaSulf 236 GM Oral Solution Reconstituted Please take according to Colonoscopy prep instructions. 4000 mL 0 01/21/2023 Active NovoLOG FlexPen 100 UNIT/ML Subcutaneous Solution Pen-injector INJECT 8-12 UNITS PRIOR TO EACH MEAL -EXTRA IF NEEDED BASED ON BLOOD SUGAR 30 mL 1 02/06/2023 Active Nystatin 107400 UNIT/GM External Cream Apply topically to affected [...] Oral Tablet Extended Release 24 Hour (Ultram ER)Indications:[place] leonor osteoarthritis of both hands Take 1 [...] CKD protocol Coronary artery disease invo lving [place] coronary artery of [place] heart without angina pectoris 02/13/2019 Chronic systolic heart failure 02/13/2019 Type 2 diabetes mellitus wit h hemoglobin A1c goal of less than 8.0% 02/02/2019 HTN, goal below 130/80 12/15/2015 Overview: Per HTN Protocol #27. Old [place] (myocardial infarction) 04/21/2015 Dyslipidemia 11/15/2012 Peripheral vascular [...] 02/05/2019 05/12/2020 Overview: DO NOT DELETE [facility] DETECT Study: Project # [id number], Finishing Department Supervisor: Jona Mckeon, PhD. SUMMARY: Goal: Establish test [...] contact study staff at ; after hours Finishing Department Supervisor via the [facility] typesetting machine operator/tender . Please contact study team before resolving/deleting from patients problem list. Study phone number: [phone]. Diagnosis changed due to Research Module. Go to Snapshot for study details. Encounter for examination fo r normal comparison and control in clinical research program 02/05/2019 06/10/2022 Overview: DO NOT DELETE [facility] Study: Project # [id number], Finishing Department Supervisor: Vipin Carvalho, MS, MPH. SUMMARY: Goal: Establish [...] contact study staff at ; after hours Finishing Department Supervisor via the [facility] hospital typesetting machine operator/tender . - Please contact study team before resolving/deleting from patients problem list. Study phone number: [phone]. Diagnosis changed due to Research Module. Go [...] 12/30/2021 Hiatal hernia 06/21/2018 12/30/2021 History of [place] (myocardial infarction) 05/09/2018 12/30/2021 Vulvar lesion 05/09/2018 [...] 08/01/2008 Overview: Study Titile: Event Registry Project #[id number] PI: Rachna Manley MD Please call [phone] with study related questions [employer] Other*[id number] 06/29/2007 11/16/2016 Overview: Study Title: Genomic Markers for Patients with Cardiovascular Disease Project # [id number] Finishing Department Supervisor: Rachna Manley MD [phone] Type 2 diabetes mellitus wit h hemoglobin [...] mRNA, LNP-s, No Pre serve, 2-Dose Series ([employer]) 10/06/2021,01/05/2021,12/09/2020 COVID-19, LNP-s, No Preserve , Angus-sucrose, [...] this time. Thank You, Hannah Blanchard CPhT Oil Burner Installer II [facility] ([facility]) (Formerly Telepharmacy) 10/17/2023, 5:24 PM * Telephone Encounter - Chery Anderson CPhT - 10/17/2023 5:19 PM EST Pt calling into state she missed a call from [employer], no documents shown that a call was placed. Transferred pt to office. Thank you, Chery Anderson Print Inspector [facility] 10/17/2023, 5:20 PM documented in this encounter Plan of Treatment Upcoming Encounters Date Type Department Care Team (Late st Contact Info) Description 10/19/2023 10:00 AM EST Therapy Psychology, [facility] [address] [place] [address] Beni Mares, PhD [address] [facility] [place] [address] 10/26/2023 11:20 AM EST Office Visit Nephrology, [facility] [address] [place] [address] Clint Myers MD [address] [facility] [place] [address] 11/18/2023 11:30 AM EST Office Visit Cardiology, [facility] [address] [place] [address] Chema Hayden MD [address] [place] [address] 12/12/2023 1:00 PM EST Office Visit Family Practice [facility] [address] [place] [address] Amrita Vergara CRNP [address] [place] [address] 02/23/2024 10:00 AM EDT Office Visit Rheumatology [address] [place] [address] Beni Fernandez MD [address] [place] [address] [place] [address] 03/15/2024 11:00 AM EDT Office Visit Pharmacy, [facility] [address] [place] [address] [facility] [address] [place] [address] 05/03/2024 5:40 PM EDT Office Visit Family Practice [facility] [address] [place] [address] Bartolome Villa, [address] [place] [address] Scheduled Procedures Name Priority Associated Diagnoses Date/Ti me COLONOSCOPY FLEXIBLE PROXIMA L DIAGNOSTIC Recall History of colonic polyps Health Maintenance Due Date Last Done Comments Hepatitis B (1 of 3 - Risk 3-dose series) 2011 COVID-19 Vaccine ( season) 2023 07/13/2022, 03/10/2022, 10/06/2021, Additional history exists CKD HGB USE SMARTSET 68249 09/09/202309/09, 09/09/2022, 06/04/2022, Additional history exists Depression Screening 09/22/2023 09/22/2022 GFR 10/21/2023 04/20/2023, 05/11, 11/17/2021, Additional history exists HbA1c 10/21/2023 04/20/2023, 05/11, 12/07/2021, Additional history exists Mammogram 04/08/2024 04/08/2023, 03/12, 04/06/2022, Additional history exists Albumin/Creatinine Ratio 04/20/2024 023, 03/25/2022, 10/30/2020, Additional history exists CKD PHOS USE SMARTSET 91407 04/20/202404/09, 11/17/2021, 03/26/2020, Additional history exists Diabetic [...] 07/07/2015 LUNG CANCER SCREENING - USE SMARTSET 90891 Completed 02/15/2023, 04/06/2022, 05/09/2020, Additional history exists [...] and were consensually agreed upon. Care Teams Agricultural Produce Sorter Relationship Specialty Start Date End Date Bartolome Villa DO [address] [place] [address] PCP - General Family Medicine 02/16/23 documented as of this encounter
--- OUTSIDE RECORDS SUMMARY | 2023-10-27 07:02 | External Medical Summary | Summary of Care ---
Author Name Unknown Organization [facility] Address [address] [facility] [place] [address] Phone [phone] Care Team Providers Care Medical Technologist Microbiology Name Role Phone Bartolome Villa Primary Care Provider Reason for Visit * Reason Comments eRx-Medication Refill Encounter Details Date Type Department Care Team (Late st Contact Info) Description 10/08/2023 Refill [facility] [address] [place] [address] Priyanka Tineo MD [address] [facility] [place] [address] HTN, goal below 140/90 Allergies Active Allergy Reactions Criticality Noted Date Comments Iodinated Contrast Media Itching 08/18/2011 Sitagliptin Phosphate Other (Please comment) 03/07/2013 pancreatitis Niacin High 06/14/2019 Other reaction(s): HOT/BURNING FEELING documented as of this encounter (statuses as of 10/11/2023) Medications Medication Sig Dispensed Refills Start Date End Date Status ONE TOUCH GLUCOSE MONITOR KITIndications:Imp aired fasting glucose use daily 1 0 10/06/20 05 Active ASPIRIN 81 MG PO TABSIndications:Ol d myocardial infarct one tab by mouth daily 34 0 07/25/20 07 Active ONETOUCH LANCETS MISCIndications:Im paired fasting glucose Use once daily to test blood sugar DX E11.9 100 Box Dosing Unit 11 02/11/20 17 Active Diclofenac Sodium (REXAPHENAC) 1 % CREA Place topically on the skin 4 times a day as needed for Pain. Apply to toes 100 g 11 05/09/20 18 Active Glucose Blood (ONETOUCH ULTRA BLUE) STRPIndications:Ty pe 2 diabetes mellitus with hemoglobin A1c goal of less than 7.0% (HCC) TEST FOUR TIMES DAILY AND UP TO 8 TIMES DAILY IF NEEDED FOR FLUCTUATING SUGARS E11.9 600 Strip 0 07/07/20 18 Active Nitroglycerin 0.4 MG Sublingual Tablet Sublingual (Nitrostat)Indicat ions:Chest pain Place 1 Tab under the tongue every 5 minutes as needed for Pain, Chest. Up to 3 doses in 15 minutes. 25 Tab 11 07/13/20 21 Active Additional Information Patient not taking.Reported on 06/02/2023 Probiotic Daily Oral Capsule Take by mouth 1 Capsule in the morning. 0 Active Docusate Sodium 50 MG Oral Capsule (Colace) Take 3 Capsules by mouth as needed for Constipation. 0 Active Famotidine 20 MG Oral Tablet (Pepcid)Indication s:Heartburn Take by mouth 1 Tablet before bedtime. 90 Tablet 5 08/13/20 22 Active BD Insulin Syringe Ultrafine 31G X 15/64" 0.5 ML (Insulin Syringe-Needle U-100)Indications: Type 2 diabetes mellitus with hemoglobin A1c goal of less than 7.0% (HCC) Use with insulin twice daily as directed. E11.9 200 Each 1 09/08/20 22 Active Rosuvastatin Calcium 40 MG Oral Tablet (Crestor)Indicatio ns:Dyslipidemia, goal LDL below 70 TAKE 1 TABLET BY MOUTH EVERY DAY 90 Tablet 3 12/06/19 23 Active Additional Information Patient taking differently: 40 mg Oral QPM-1999, Reported on 06/02/2023 PEG 9012-AKa-RcTqw-NaC l-NaSulf 236 GM Oral Solution Reconstituted Please take according to Colonoscopy prep instructions. 4000 mL 0 01/22/20 23 Active NovoLOG FlexPen 100 UNIT/ML Subcutaneous Solution Pen-injector INJECT 8-12 UNITS PRIOR TO EACH MEAL -EXTRA IF NEEDED BASED ON BLOOD SUGAR 30 mL 1 02/07/20 23 Active Nystatin 920323 UNIT/GM External Cream Apply topically to affected area 2 times a day. Apply to vulva 2 times a day 45 g 1 04/11/20 23 Active Additional Information Patient taking differently:TopicalPRN, Apply to vulva 2 times a day, Reported on 04/20/2023 Estradiol 0.1 MG/GM Vaginal Cream (Estrace) To vulva daily for 4 weeks and then 2 times a week 42.5 g 3 04/22/20 Active Omeprazole 40 MG Oral Capsule Delayed Release (PriLOSEC) TAKE 1 CAPSULE BY MOUTH EVERY DAY 1 HOUR BEFORE THE FIRST MEAL OF THE DAY 90 Capsule 3 04/18/20 Active Citalopram Hydrobromide 20 MG Oral Tablet (CeleXA) Take 1/2 tablet by mouth daily for 4 weeks then take 1 tablet by mouth daily. 30 Tablet 11 04/25/20 Active Prasugrel HCl 10 MG Oral Tablet (Effient) TAKE 1 TABLET BY MOUTH EVERY MORNING 90 Tablet 3 04/30/20 23 Active Gabapentin 300 MG Oral Capsule (Neurontin)Indicat ions:Lumbar degenerative disc disease,Lumbar radiculopathy, right TAKE 1 CAPSULE BY MOUTH EVERY MORNING AND 2 CAPSULES EVERY EVENING 90 Capsule 11 05/25/20 Active Isosorbide Mononitrate ER 30 MG Oral Tablet Extended Release 24 Hour (Imdur)Indications :Hypertensive heart and kidney disease with chronic systolic congestive heart failure and stage 3a chronic kidney disease (HCC),Peripheral edema TAKE 1 TABLET BY MOUTH EVERY MORNING 90 Tablet 3 05/30/20 23 Active HM Vitamin B-12 TR 2000 MCG Oral Tablet Extended Release (Cyanocobalamin ER) Take by mouth daily. 0 Active predniSONE 5 MG Oral Tablet (Deltasone)Indicat ions:Erosive osteoarthritis of both hands,Gout of left wrist, unspecified cause, unspecified chronicity TAKE 1 TABLET BY MOUTH EVERY DAY DIRECTED 90 Tablet 3 07/14/20 Active amLODIPine Besylate 5 MG Oral Tablet (Norvasc) TAKE 1 TABLET BY MOUTH EVERY DAY 90 Tablet 1 07/24/20 23 Active Metoprolol Succinate ER 100 MG Oral Tablet Extended Release 24 Hour (toPROL XL)Indications:Old myocardial infarct TAKE 1 TABLET BY MOUTH EVERY EVENING 90 Tablet 1 07/24/20 23 Active Furosemide 20 MG Oral Tablet (Lasix)Indications :Heart failure, systolic, due to CAD TAKE 2 TABLETS BY MOUTH ON MONDAYS, WEDNESDAYS, AND FRIDAYS. TAKE 1 TABLET BY MOUTH ON ALL OTHER DAYS OF THE WEEK. 135 Tablet 3 07/28/20 23 Active metFORMIN HCl ER 500 MG Oral Tablet Extended Release 24 Hour (Glucophage XR)Indications:Typ e 2 diabetes mellitus with hemoglobin A1c goal of less than 8.0% (HCC) Take 1 Tablet by mouth at bedtime. 90 Tablet 3 09/06/20 23 Active NovoLIN N 100 UNIT/ML Subcutaneous Suspension (insulin isophane human) INJECT 40 UNITS SUBCUTANEOUSLY (UNDER THE SKIN) BEFORE BREAKFAST AND INJECT 40 UNITS BEFORE SUPPER. 30 mL 1 09/22/20 23 Active oxyCODONE HCl 5 MG Oral Tablet (Oxy IR) Take 1 Tablet by mouth every 8 hours as needed for Pain, Severe. 20 Tablet 0 09/26/20 23 Active traMADol HCl ER 100 MG Oral Tablet Extended Release 24 Hour (Ultram ER)Indications:Ero sive osteoarthritis of both hands Take 1 Tablet by mouth in the morning and 1 Tablet before bedtime. 60 Tablet 0 09/30/20 23 Active Lisinopril 10 MG Oral Tablet (Prinivil)Indicati ons:HTN, goal below 140/90 Take 1 Tablet by mouth every evening. 90 Tablet 3 10/11/19 24 Active Lisinopril 10 MG Oral Tablet (Prinivil)Indicati ons:HTN, goal below 140/90 TAKE 1 TABLET BY MOUTH EVERY DAY 90 Tablet 3 10/18/19 23 024 Discontinued documented as of this encounter (statuses as of 10/11/2023) Active Problems Problem Noted Date Diagnosed Date Moderate aortic valve stenosis 09/02/2021 VINCE (obstructive sleep apnea) 08/20/2021 Chronic kidney disease, stage 3b 03/24/2021 Overview: Per CKD protocol Coronary artery disease invo lving [place] coronary artery of [place] heart without angina pectoris 02/13/2019 Chronic systolic heart failure 02/13/2019 Type 2 diabetes mellitus wit h hemoglobin A1c goal of less than 8.0% 02/02/2019 HTN, goal below 130/80 12/15/2015 Overview: Per HTN Protocol #27. Old [place] (myocardial infarction) 04/21/2015 Dyslipidemia 11/15/2012 Peripheral vascular disease 07/30/2009 S/P angioplasty with stent 08/09/2007 Bicuspid aortic valve Generalized osteoarthritis Fibromyalgia documented as of this encounter (statuses as of 10/11/2023) Resolved Problems Problem Noted Date Diagnosed Date [...] 02/05/2019 05/12/2020 Overview: DO NOT DELETE [facility] DETECT Study: Project # [id number], Tar Worker: Jona Mckeon, PhD. SUMMARY: Goal: Establish test [...] contact study staff at ; after hours Tar Worker via the [facility] car dumper operator . Please contact study team before resolving/deleting from patients problem list. Study phone number: [phone]. Diagnosis changed due to Research Module. Go to Snapshot for study details. Encounter for examination fo r normal comparison and control in clinical research program 02/05/2019 06/10/2022 Overview: DO NOT DELETE - [facility] [place] Study: Project # [id number], Tar Worker: Vipin Carvalho, MS, MPH. SUMMARY: Goal: Establish [...] contact study staff at ; after hours Tar Worker via the [facility] car dumper operator . - Please contact study team before resolving/deleting from patients problem list. Study phone number: [phone]. Diagnosis changed due to Research Module. Go to [employer] for study details. Type 2 diabetes mellitus wit h stage 3 chronic kidney disease, with long-term current use of insulin 02/02/2019 02/19/2021 Overview: Per CKD protocol Hypertensive kidney disease with chronic kidney disease stage III 02/02/2019 03/20/2019 ADVANCE DIRECTIVE INFORMATION 01/03/2019 12/30/2021 Overview: Information given at previous visit Depression 06/21/2018 12/30/2021 Hiatal hernia 06/21/2018 12/30/2021 History of [place] (myocardial infarction) 05/09/2018 12/30/2021 Vulvar lesion 05/09/2018 [...] 08/01/2008 Overview: Study Titile: Event Registry Project #[id number] PI: Rachna Manley MD Please call [phone] with study related questions [employer] Card[employer] Other*[id number] 06/29/2007 11/16/2016 Overview: Study Title: Genomic Markers for Patients with Cardiovascular Disease Project # [id number] Tar Worker: Rachna Manley MD [phone] Type 2 diabetes mellitus wit h hemoglobin A1c goal of less than 7.0% 11/15/2005 08/07/2009 Overview: Per Diabetes Taxonomy. ICD-10 update of inactive term Spondylolisthesis 05/11/2004 12/30/2021 HTN, goal below 140/90 12/08/200011/06 Overview: Per HTN Taxonomy. S/P total knee replacement, left 04/05/2023 Erosive osteoarthritis of both hands 04/05/2023 documented as of this encounter (statuses as of 10/11/2023) Immunizations Name Administration Dates Next Due COVID-19 mRNA, LNP-s, No Pre serve, 2-Dose Series (Fanzter) 10/06/2021,01/05/2021,12/09/2020 COVID-19, LNP-s, No Preserve , Angus-sucrose, [...] encounter Miscellaneous Notes * Telephone Encounter - Priyanka Tineo MD - 10/11/2023 9:21 AM ESTSigned Prescriptions: Disp Refills Lisinopril 10 MG Oral Tablet (Prinivil) 90 Tab*3 Sig: Take 1 Tablet by mouth every evening. Authorizing Provider: PRIYANKA TINEO * Telephone Encounter - Elena Velasco RN - 10/11/2023 8:36 AM ESTPending Prescriptions: Disp Refills Lisinopril 10 MG Oral Tablet (Prinivil) 90 Tab*3 Sig: Take 1 Tablet by mouth every evening. * Telephone Encounter - Elena Velasco RN - 10/11/2023 8:33 AM EST Prescription request received from pharmacy pending. Please authorize. Last OV 06/17/23 Note to outside food server for a December follow up documented in this encounter Plan of Treatment Upcoming Encounters Date Type Department Care Team (Late st Contact Info) Description 10/19/2023 6:10 PM EST Pharmacy Pharmacy, [facility] [address] [address] [facility] [address] [address] 11/18/2023 11:30 AM EST Office Visit Cardiology, [facility] [address] [address] Chema Hayden MD [address] [place] [address] 12/12/2023 1:00 PM EST Office Visit Family Practice [facility] [address] [address] Amrita Vergara CRNP [address] [place] [address] 02/23/2024 10:00 AM EDT Office Visit Rheumatology [facility] [address] [facility] [place] [address] Beni Fernandez MD [address] [place] [address] 05/03/2024 5:40 PM EDT Office Visit Family Practice [facility] [address] [place] [address] Bartolome Villa, [address] [place] [address] Scheduled Procedures Name Priority Associated Diagnoses Date/Ti me COLONOSCOPY FLEXIBLE PROXIMA L DIAGNOSTIC Recall History of colonic polyps Health Maintenance Due Date Last Done Comments Hepatitis B (1 of 3 - Risk 3-dose series) 2011 COVID-19 Vaccine ( season) 2023 07/13/2022, 03/10/2022, 10/06/2021, Additional history exists CKD HGB USE SMARTSET 14917 09/09/202309/09, 09/09/2022, 06/04/2022, Additional history exists Depression Screening 09/22/2023 09/22/2022 GFR 10/21/2023 04/20/2023, 05/11, 11/17/2021, Additional history exists HbA1c 10/21/2023 04/20/2023, 05/11, 12/07/2021, Additional history exists Mammogram 04/08/2024 04/08/2023, 03/12, 04/06/2022, Additional history exists Albumin/Creatinine Ratio 04/20/2024 023, 03/25/2022, 10/30/2020, Additional history exists CKD PHOS USE SMARTSET 87173 04/20/2024 [address]11/2022, 11/17/2021, 03/26/2020, Additional history exists [...] 07/07/2015 LUNG CANCER SCREENING - USE SMARTSET 96828 Completed 02/15/2023, 04/06/2022, 05/09/2020, Additional history exists [...] encounter Visit Diagnoses Diagnosis HTN, goal below 140/90 Unspecified essential hypertension documented in this encounter Advance Directives Latest Code Status on File Code Status Date Activated Date Inactivated Comments Full Code 07/04/2018 11:03 AM 07/04/2018 5:07 PM This order reflects the patients wishes and were consensually agreed upon. Care Teams Medical Technologist Microbiology Relationship Specialty Start Date End Date Bartolome Villa DO [address] [place] [address] PCP - General Family Medicine 02/16/23 documented as of this encounter
--- OUTSIDE RECORDS SUMMARY | 2023-10-27 07:03 | External Medical Summary | Summary of Care ---
Author Name Unknown Organization [facility] Address [address] [facility] [place] [address] Phone [phone] Care Team Providers Care Bio Medical Technician Name Role Phone Sumit Villa DO Primary Care Provider Reason for Visit * Reason Onset Date Comments Medication Refill 08/26/2023 Encounter Details Date Type Department Care Team (Late st Contact Info) Description 08/26/2023 Refill Pharmacy, [facility] [address] [place] [address] Sumit Villa DO [address] [place] [address] Erosive osteoarthritis of both hands Allergies Active Allergy Reactions Criticality Noted Date Comments Iodinated Contrast Media Itching 08/18/2011 Sitagliptin Phosphate Other (Please comment) 03/07/2013 pancreatitis Niacin High 06/14/2019 Other reaction(s): HOT/BURNING FEELING documented as of this encounter (statuses as of 08/26/2023) Medications Medication Sig Dispensed Refills Start Date [...] directed. E11.9 200 Each 1 2 Active NovoLIN N 100 UNIT/ML Subcutaneous Suspension (insulin isophane human) INJECT 40 UNITS SUBCUTANEOUSLY (UNDER THE SKIN) BEFORE BREAKFAST AND INJECT 40 UNITS BEFORE SUPPER 30 mL 11 2 Active Lisinopril 10 MG Oral Tablet (Prinivil)Indicatio ns:HTN, goal below 140/90 TAKE 1 TABLET BY MOUTH EVERY DAY 90 Tablet 3 3 Active Additional Information Patient taking differently: 10 mg Oral QPM-1999, Reported on 06/02/2023 Rosuvastatin Calcium 40 MG Oral Tablet (Crestor)Indication s:Dyslipidemia, goal LDL below 70 TAKE 1 TABLET BY MOUTH EVERY DAY 90 Tablet 3 3 Active Additional Information Patient taking differently: 40 mg Oral QPM-1999, Reported on 06/02/2023 PEG 9292-BUz-OlOxl-NaCl -NaSulf 236 GM Oral Solution Reconstituted Please take according to Colonoscopy prep instructions. 4000 mL 0 3 Active NovoLOG FlexPen 100 UNIT/ML Subcutaneous Solution Pen-injector INJECT 8-12 UNITS PRIOR TO EACH MEAL -EXTRA IF NEEDED BASED ON BLOOD SUGAR 30 mL 1 3 Active Nystatin 061042 UNIT/GM External Cream Apply topically to affected [...] THE WEEK. 135 Tablet 3 3 Active oxyCODONE HCl 5 MG Oral Tablet (Oxy IR) Take 1 Tablet by mouth every 8 hours as needed for Pain, Severe. 20 Tablet 0 3 Active traMADol HCl ER 100 MG Oral Tablet Extended Release 24 Hour (Ultram ER)Indications:[place] leonor osteoarthritis of both hands Take 1 Tablet by mouth in the morning and 1 Tablet before bedtime. Do not start before August 31, 2023. 60 Tablet 0 3 Active traMADol HCl ER 100 MG Oral Tablet Extended Release 24 Hour (Ultram ER)Indications:[place] leonor osteoarthritis of both hands Take 1 Tablet by mouth in the morning and 1 Tablet before bedtime. 60 Tablet 0 3 08/26/20 23 Discontinu ed(Refill) documented as of this encounter (statuses as of 08/26/2023) Active Problems Problem Noted Date Diagnosed Date Moderate aortic valve stenosis 09/02/2021 VINCE (obstructive sleep apnea) 08/20/2021 Chronic kidney disease, stage 3b 03/24/2021 Overview: Per CKD protocol Coronary artery disease invo lving [place] coronary artery of [place] heart without angina pectoris 02/13/2019 Chronic systolic heart failure 02/13/2019 Type 2 diabetes mellitus wit h hemoglobin A1c goal of less than 8.0% 02/02/2019 HTN, goal below 130/80 12/15/2015 Overview: Per HTN Protocol #27. Old MT (myocardial infarction) 04/21/2015 Dyslipidemia 11/15/2012 Peripheral vascular disease 07/30/2009 S/P angioplasty with stent 08/09/2007 Bicuspid aortic valve Generalized osteoarthritis Fibromyalgia documented as of this encounter (statuses as of 08/26/2023) Resolved Problems Problem Noted Date Diagnosed Date [...] 05/12/2020 Overview: DO NOT DELETE [facility] DETECT Study: Project # [id number], Steel Buffer: Jona Mckeon, PhD. SUMMARY: Goal: Establish test [...] contact study staff at ; after hours Steel Buffer via the [facility] cylinder press operator apprentice . Please contact study team before resolving/deleting from patients problem list. Study phone number: [phone]. Diagnosis changed due to Research Module. Go to Snapshot for study details. Encounter for examination fo r normal comparison and control in clinical research program 02/05/2019 06/10/2022 Overview: DO NOT DELETE - [facility] [place] Study: Project # [id number], Steel Buffer: Vipin Carvalho, MS, MPH. SUMMARY: Goal: Establish [...] contact study staff at ; after hours Steel Buffer via the [facility] cylinder press operator apprentice . - Please contact study team before resolving/deleting from patients problem list. Study phone number: [phone]. Diagnosis changed due to Research Module. Go to OnlineSheetMusic for study details. Type 2 diabetes mellitus wit h stage 3 chronic kidney disease, with long-term current use of insulin 02/02/2019 02/19/2021 Overview: Per CKD protocol Hypertensive kidney disease with chronic kidney disease stage III 02/02/2019 03/20/2019 ADVANCE DIRECTIVE INFORMATION 01/03/2019 12/30/2021 Overview: Information given at previous visit Depression 06/21/2018 12/30/2021 Hiatal hernia 06/21/2018 12/30/2021 History of MT (myocardial infarction) 05/09/2018 12/30/2021 Vulvar lesion 05/09/2018 [...] 08/01/2008 Overview: Study Titile: Event Registry Project #[id number] PI: Rachna Manley MD Please call [phone] with study related questions [employer] Other*[id number] 06/29/2007 11/16/2016 Overview: Study Title: Genomic Markers for Patients with Cardiovascular Disease Project # [id number] Steel Buffer: Rachna Manley MD [phone] Type 2 diabetes mellitus wit h hemoglobin A1c goal of less than 7.0% 11/15/2005 08/07/2009 Overview: Per Diabetes Taxonomy. ICD-10 update of inactive term Spondylolisthesis 05/11/2004 12/30/2021 HTN, goal below 140/90 12/08/200011/06 Overview: Per HTN Taxonomy. S/P total knee replacement, left 04/05/2023 Erosive osteoarthritis of both hands 04/05/2023 documented as of this encounter (statuses as of 08/26/2023) Immunizations Name Administration Dates Next Due COVID-19 mRNA, LNP-s, No Pre serve, 2-Dose Series (Rock'n Rover) 10/06/2021,01/05/2021,12/09/2020 COVID-19, LNP-s, No Preserve , Angus-sucrose, Ages 12+ (Pfizer) 03/10/2022 Covid-19, Mrna, Lnp-s, Pf, B ivalent, 30 Mcg, IM, 12 yrs and above (Rock'n Rover) 07/13/2022 Pneumococcal Conjugate Vacc, 13 Valent (Prevnar) 11/25/2016 Pneumococcal Polysaccharide PPV23 (Pneumovax) 05/09/2018,07/18/2006 SEASONAL INFLUENZA, PF, 6 M & Above, IM , (FLULAVAL or FLUZONE) 07/04/2023,06/30/2021,08/24/2018,07/05 Seasonal Influenza, Quadriva lent Hd (Fluzone [...] Telephone Encounter - Sumit Villa DO - 08/26/2023 11:46 AM EST Signed Prescriptions: Disp Refills traMADol HCl ER 100 MG Oral Tablet Extende*60 Tab*0 Sig: Take 1 Tablet by mouth in the morning and 1 Tablet before bedtime. Do not start before August 31, 2023. Authorizing Provider: SUMIT VILLA * Telephone Encounter - Shoaib Garcia, [facility] - 08/26/2023 8:52 AM EST Pending Prescriptions: Disp Refills traMADol HCl ER 100 MG Oral Tablet Extende*60 Tab*0 Sig: Take 1 Tablet by mouth in the morning and 1 Tablet before bedtime. Do not start before August 31, 2023. * Telephone Encounter - Shoaib Garcia, [facility] - 08/26/2023 8:50 AM EST I have reviewed the patients controlled substance dispensing history in the Prescription Drug Monitoring Program in compliance with the [facility] regulations before prescribing a controlled substance. PDMP checked on 08/26/2023. Pending Prescriptions: Disp Refills traMADol HCl ER 100 MG Oral Tablet Extend*60 Tab*0 Sig: Take 1 Tablet by mouth in the morning and 1 Tablet before bedtime. Last Visit: 06/17/2023 (in office), Visit date not found (telemedicine) Next Visit: 09/21/2023 Date medication was last filled: 08/02/23 Date medication is due for refill: 09/01/23 Pharmacy: [facility] [id number] [place] Is this request for a controlled substance? Yes and Urine Drug Screen was completed Toxicology results: Results for orders placed or performed in visit on 06/03/21 TOXICOLOGY, URINE SCREEN Result Value Amphetamine Negative Benzodiazepines Negative Cannabinoids Negative Cocaine Metabolite Negative Hydrocodone / Hydromorphone Negative Methadone Metabolite Negative Morphine / Codeine Negative Oxycodone / Oxymorphone Positive (A) Narrative Cutoff Concentrations: Drug Level Amphetamines 500 ng/mL Benzodiazepines 100 ng/mL Cannabinoids 50 ng/mL Cocaine Metabolite 150 ng/mL Hydrocodone / Hydromorphone 100 ng/mL Methadone Metabolite 100 ng/mL Morphine / Codeine 300 ng/mL Oxycodone / Oxymorphone 100 ng/mL Screening results are presumptive and can only be used for medical purposes. Confirmatory testing is available upon request. *Note: Due to a large number of results and/or encounters for the requested time period, some results have not been displayed. A complete set of results can be found in Results Review. Please approve if appropriate. Shoaib Garcia PharmD, [facility] Clinical Pharmacist 08/26/2023, 8:52 AM documented in this encounter Plan of Treatment Upcoming Encounters Date Type Department Care Team (Late st Contact Info) Description 09/06/2023 11:00 AM EST Office Visit Family Practice [facility] [address] [facility] [place] [address] Sumit Villa DO [address] [place] [address] 09/09/2023 3:30 PM EST Therapy Psychology, [facility] [address] [place] [address] Beni Mares, PhD [address] [facility] [place] [address] 09/21/2023 1:00 PM EST Office Visit Pharmacy, [facility] [address] [facility] [place] [address] [facility] [address] [place] [address] 09/23/2023 10:00 AM EST Nurse Only Ancillary [facility] [address] [facility] [place] [address] [facility]jo Nurse Annual Wellness [address] [place] [address] 11/18/2023 11:30 AM EST [facility] [address] [facility] [place] [address] Chema Hayden MD [address] [place] [address] 02/23/2024 10:00 AM EDT Office Visit Rheumatology [place] [id number] [employer] [place] [address] Beni Fernandez MD [address] [place] [address] Scheduled Procedures Name Priority Associated Diagnoses Date/Ti me COLONOSCOPY FLEXIBLE PROXIMA L DIAGNOSTIC Recall History of colonic polyps Health Maintenance Due Date Last Done Comments Hepatitis B (1 of 3 - Risk 3-dose series) 2011 Diabetic Foot Exam 06/03/2022 06/03/2021, 0 03/25/2020, 04/03/2019, Additional history exists COVID-19 Vaccine ( season) 2023 07/13/2022, 03/10/2022, 10/06/2021, Additional history exists Diabetic Eye Exam 08/19/2023 08/19/2022, , 08/13/2021, Additional history exists CKD HGB USE SMARTSET 52731 09/09/202309/09, 09/09/2022, 06/04/2022, Additional history exists Depression Screening 09/22/2023 09/22/2022 GFR 10/21/2023 04/20/2023, 05/11, 11/17/2021, Additional history exists HbA1c 10/21/2023 04/20/2023, 05/11, 12/07/2021, Additional history exists Mammogram 04/08/2024 04/08/2023, 03/12, 04/06/2022, Additional history exists Albumin/Creatinine Ratio 04/20/2024 023, 03/25/2022, 10/30/2020, Additional history exists CKD PHOS USE SMARTSET 63337 04/20/202404/09, 11/17/2021, 03/26/2020, Additional history exists COLONOSCOPY-EVERY 3 YRS AGES 18-100 06/07/2026 06/07/2023, 06/07/2023, 08/29/2019, Additional history exists DXA Scan 11/09/2028 11/09/2021, 10/12, 12/27/2016 DTaP,Tdap,and Td Vaccines (3 - Td or Tdap) 09/13/2029 09/13/2019, 07/30/2009, 01/09/1996, Additional history exists Pneumococcal Vaccine: 65+ Years Completed 05/09/2018, 11/25/2016, 07/18/2006 Zoster Vaccines Completed 06/25/2020, 03/10, 07/07/2015 LUNG CANCER SCREENING - USE SMARTSET 07228 Completed 02/15/2023, 04/06/2022, 05/09/2020, Additional history exists [...] Visit Diagnoses Diagnosis Erosive osteoarthritis of both hands documented in this encounter Advance Directives Latest Code Status on File Code Status Date Activated Date Inactivated Comments Full Code 07/04/2018 11:03 AM 07/04/2018 5:07 PM This order reflects the patients wishes and were consensually agreed upon. Care Teams Bio Medical Technician Relationship Specialty Start Date End Date Sumit Villa DO [address] [place] [address] PCP - General Family Medicine 02/16/23 documented as of this encounter
--- OUTSIDE RECORDS SUMMARY | 2023-10-27 07:03 | External Medical Summary | Summary of Care ---
Author Name Unknown Organization [facility] Address [address] [facility] [place] [address] Phone [phone] Care Team Providers Care Financial Professional Name Role Phone Bartolome Villa DO Primary Care Provider Reason for Visit * Reason Onset Date Comments Medication Refill 09/30/2023 Encounter Details Date Type Department Care Team (Late st Contact Info) Description 09/30/2023 Refill Pharmacy, [facility] [address] [place] [address] Bartolome Villa DO [address] [place] [address] Erosive osteoarthritis of both hands Allergies Active Allergy Reactions Criticality Noted Date Comments Iodinated Contrast Media Itching 08/18/2011 Sitagliptin Phosphate Other (Please comment) 03/07/2013 pancreatitis Niacin High 06/14/2019 Other reaction(s): HOT/BURNING FEELING documented as of this encounter (statuses as of 09/30/2023) Medications Medication Sig Dispensed Refills Start Date [...] directed. E11.9 200 Each 1 2 Active Lisinopril 10 MG Oral Tablet [...] mg Oral QPM-1999, Reported on 06/02/2023 PEG 3868-YBc-LkNlw-NaCl -NaSulf 236 GM Oral Solution Reconstituted Please take according to Colonoscopy prep instructions. 4000 mL 0 3 Active NovoLOG FlexPen 100 UNIT/ML Subcutaneous Solution Pen-injector INJECT 8-12 UNITS PRIOR TO EACH MEAL -EXTRA IF NEEDED BASED ON BLOOD SUGAR 30 mL 1 3 Active Nystatin 619903 UNIT/GM External Cream Apply topically to affected [...] BEFORE SUPPER. 30 mL 1 3 Active oxyCODONE HCl 5 MG Oral Tablet (Oxy IR) Take 1 Tablet by mouth every 8 hours as needed for Pain, Severe. 20 Tablet 0 3 Active traMADol HCl ER 100 MG Oral Tablet Extended Release 24 Hour (Ultram ER)Indications:[place] leonor osteoarthritis of both hands Take 1 Tablet by mouth in the morning and 1 Tablet before bedtime. 60 Tablet 0 3 Active traMADol HCl ER 100 MG Oral Tablet Extended Release 24 Hour (Ultram ER)Indications:[place] leonor osteoarthritis of both hands Take 1 Tablet by mouth in the morning and 1 Tablet before bedtime. Do not start before August 31, 2023. 60 Tablet 0 3 09/30/20 23 Discontinu ed(Refill) documented as of this encounter (statuses as of 09/30/2023) Active Problems Problem Noted Date Diagnosed Date Moderate aortic valve stenosis 09/02/2021 VINCE (obstructive sleep apnea) 08/20/2021 Chronic kidney disease, stage 3b 03/24/2021 Overview: Per CKD protocol Coronary artery disease invo lving [place] coronary artery of [place] heart without angina pectoris 02/13/2019 Chronic systolic heart failure 02/13/2019 Type 2 diabetes mellitus wit h hemoglobin A1c goal of less than 8.0% 02/02/2019 HTN, goal below 130/80 12/15/2015 Overview: Per HTN Protocol #27. Old [place] (myocardial infarction) 04/21/2015 Dyslipidemia 11/15/2012 Peripheral vascular disease 07/30/2009 S/P angioplasty with stent 08/09/2007 Bicuspid aortic valve Generalized osteoarthritis Fibromyalgia documented as of this encounter (statuses as of 09/30/2023) Resolved Problems Problem Noted Date Diagnosed Date [...] program 02/05/2019 05/12/2020 Overview: DO NOT DELETE [facility] DETECT Study: Project # [id number], Tripe Cooker: Jona Mckeon, PhD. SUMMARY: Goal: Establish test [...] contact study staff at ; after hours Tripe Cooker via the [facility] hospital frothing machine operator . Please contact study team before resolving/deleting from patients problem list. Study phone number: [phone]. Diagnosis changed due to Research Module. Go to Snapshot for study details. Encounter for examination fo r normal comparison and control in clinical research program 02/05/2019 06/10/2022 Overview: DO NOT DELETE - [facility] Study: Project # [id number], Tripe Cooker: Vipin Carvalho, MS, MPH. SUMMARY: Goal: Establish [...] contact study staff at ; after hours Tripe Cooker via the [facility] frothing machine operator . - Please contact study team before resolving/deleting from patients problem list. Study phone number: [phone]. Diagnosis changed due to Research Module. Go [...] 12/30/2021 Hiatal hernia 06/21/2018 12/30/2021 History of [place] (myocardial infarction) 05/09/2018 12/30/2021 Vulvar lesion 05/09/2018 [...] 08/01/2008 Overview: Study Titile: Event Registry Project #[id number] PI: Rachna Manley MD Please call [phone] with study related questions [employer] Other*[id number] 06/29/2007 11/16/2016 Overview: Study Title: Genomic Markers for Patients with Cardiovascular Disease Project # [id number] Tripe Cooker: Rachna Manley MD [phone] Type 2 diabetes mellitus wit h hemoglobin A1c goal of less than 7.0% 11/15/2005 08/07/2009 Overview: Per Diabetes Taxonomy. ICD-10 update of inactive term Spondylolisthesis 05/11/2004 12/30/2021 HTN, goal below 140/90 12/08/200011/06 Overview: Per HTN Taxonomy. S/P total knee replacement, left 04/05/2023 Erosive osteoarthritis of both hands 04/05/2023 documented as of this encounter (statuses as of 09/30/2023) Immunizations Name Administration Dates Next Due COVID-19 mRNA, LNP-s, No Pre serve, 2-Dose Series (Flashnotes) 10/06/2021,01/05/2021,12/09/2020 COVID-19, LNP-s, No Preserve , Angus-sucrose, Ages 12+ (Pfizer) 03/10/2022 Covid-19, Mrna, Lnp-s, Pf, B ivalent, 30 Mcg, IM, 12 yrs and above (Flashnotes) 07/13/2022 Pneumococcal Conjugate Vacc, 13 Valent (Prevnar) [...] encounter Miscellaneous Notes * Telephone Encounter - Luciano Lincoln DO - 09/30/2023 10:29 AM ESTSigned Prescriptions: Disp Refills traMADol HCl ER 100 MG Oral Tablet Extende*60 Tab*0 Sig: Take 1 Tablet by mouth in the morning and 1 Tablet before bedtime. Authorizing Provider: LUCIANO LINCOLN * Telephone Encounter - Tosha Liu [facility] - 09/30/2023 9:21 AM EST Pending Prescriptions: Disp Refills traMADol HCl ER 100 MG Oral Tablet Extende*60 Tab*0 Sig: Take 1Tablet by mouth in the morning and 1 Tablet before bedtime. documented in this encounter Plan of Treatment Upcoming Encounters Date Type Department Care Team (Late st Contact Info) Description 10/19/2023 6:10 PM EST Pharmacy Pharmacy, [facility] [address] [place] [address] [facility] [address] [place] [address] 11/18/2023 11:30 AM EST Office Visit Cardiology, [facility] [address] [place] [address] Chema Hayden MD [address] [place] [address] 12/12/2023 1:00 PM EST Office Visit Family Practice [facility] [address] [place] [address] Amrita Vergara CRNP [address] [place] [address] 02/23/2024 10:00 AM EDT Office Visit Rheumatology [facility] [address] [facility] [place], [place] [address] Beni Fernandez MD [address] [place] [address] 05/03/2024 5:40 PM EDT Office Visit Family Practice [facility] [address] [place] [address] Bartolome Villa, [address] [place] [address] Scheduled Procedures Name Priority Associated Diagnoses Date/Ti me COLONOSCOPY FLEXIBLE PROXIMA L DIAGNOSTIC Recall History of colonic polyps Health Maintenance Due Date Last Done Comments Hepatitis B (1 of 3 - Risk 3-dose series) 2011 COVID-19 Vaccine ( season) 2023 07/13/2022, 03/10/2022, 10/06/2021, Additional history exists CKD HGB USE SMARTSET 74881 09/09/202309/09, 09/09/2022, 06/04/2022, Additional history exists Depression Screening 09/22/2023 09/22/2022 GFR 10/21/2023 04/20/2023, 05/11, 11/17/2021, Additional history exists HbA1c 10/21/2023 04/20/2023, 05/11, 12/07/2021, Additional history exists Mammogram 04/08/2024 04/08/2023, 03/12, 04/06/2022, Additional history exists Albumin/Creatinine Ratio 04/20/2024 023, 03/25/2022, 10/30/2020, Additional history exists CKD PHOS USE SMARTSET 19886 04/20/202404/09, 11/17/2021, 03/26/2020, Additional history exists Diabetic [...] 07/07/2015 LUNG CANCER SCREENING - USE SMARTSET 28726 Completed 02/15/2023, 04/06/2022, 05/09/2020, Additional history exists [...] and were consensually agreed upon. Care Teams Financial Professional Relationship Specialty Start Date End Date Bartolome Villa DO [address] [place] [address] PCP - General Family Medicine 02/16/23 documented as of this encounter
--- OUTSIDE RECORDS SUMMARY | 2023-10-27 07:03 | External Medical Summary | Summary of Care ---
Author Name Unknown Organization [facility] Address [address] [facility] [place] [address] Phone [phone] Care Team Providers Care Mink Slicer Name Role Phone Sumit Villa DO Primary Care Provider Reason for Visit * Reason Onset Date Comments Medication Refill 08/18/2023 Encounter Details Date Type Department Care Team (Late st Contact Info) Description 08/18/2023 Refill Pharmacy, [facility] [address] [place] [address] Sumit Villa DO [address] [place] [address] Allergies Active Allergy Reactions Criticality Noted Date Comments Iodinated Contrast Media Itching 08/18/2011 Sitagliptin Phosphate Other (Please comment) 03/07/2013 pancreatitis Niacin High 06/14/2019 Other reaction(s): HOT/BURNING FEELING documented as of this encounter (statuses as of 08/22/2023) Medications Medication Sig Dispensed Refills Start Date [...] 100 g 11 8 Active Glucose Blood (ValconTOUCH ULTRA BLUE) STRPIndications:Typ e 2 diabetes mellitus [...] mg Oral QPM-1999, Reported on 06/02/2023 PEG 8319-HUa-VeVoc-NaCl -NaSulf 236 GM Oral Solution Reconstituted Please take according to Colonoscopy prep instructions. 4000 mL 0 3 Active NovoLOG FlexPen 100 UNIT/ML Subcutaneous Solution Pen-injector INJECT 8-12 UNITS PRIOR TO EACH MEAL -EXTRA IF NEEDED BASED ON BLOOD SUGAR 30 mL 1 3 Active Nystatin 542566 UNIT/GM External Cream Apply topically to affected [...] THE WEEK. 135 Tablet 3 3 Active traMADol HCl ER 100 MG Oral Tablet Extended Release 24 Hour (Ultram ER)Indications:[place] leonor osteoarthritis of both hands Take 1 Tablet by mouth in the morning and 1 Tablet before bedtime. 60 Tablet 0 3 Active oxyCODONE HCl 5 MG Oral Tablet (Oxy IR) Take 1 Tablet by mouth every 8 hours as needed for Pain, Severe. 20 Tablet 0 3 Active oxyCODONE HCl 5 MG Oral Tablet (Oxy IR) Take 1 Tablet by mouth every 8 hours as needed for Pain, Severe. 20 Tablet 0 3 08/18/20 23 Discontinu ed(Refill) documented as of this encounter (statuses as of 08/22/2023) Active Problems Problem Noted Date Diagnosed Date Moderate aortic valve stenosis 09/02/2021 VINCE (obstructive sleep apnea) 08/20/2021 Chronic kidney disease, stage 3b 03/24/2021 Overview: Per CKD protocol Coronary artery disease invo lving [place] coronary artery of [place] heart without angina pectoris 02/13/2019 Chronic systolic heart failure 02/13/2019 Type 2 diabetes mellitus wit h hemoglobin A1c goal of less than 8.0% 02/02/2019 HTN, goal below 130/80 12/15/2015 Overview: Per HTN Protocol #27. Old [place] (myocardial infarction) 04/21/2015 Dyslipidemia 11/15/2012 Peripheral vascular disease 07/30/2009 S/P angioplasty with stent 08/09/2007 Bicuspid aortic valve Generalized osteoarthritis Fibromyalgia documented as of this encounter (statuses as of 08/22/2023) Resolved Problems Problem Noted Date Diagnosed Date [...] program 02/05/2019 05/12/2020 Overview: DO NOT DELETE [facility] DETECT Study: Project # [id number], Analytical Lead: Jona Mckeon, PhD. SUMMARY: Goal: Establish test [...] contact study staff at ; after hours Analytical Lead via the [facility] embossing press operator apprentice . Please contact study team before resolving/deleting from patients problem list. Study phone number: [phone]. Diagnosis changed due to Research Module. Go to Snapshot for study details. Encounter for examination fo r normal comparison and control in clinical research program 02/05/2019 06/10/2022 Overview: DO NOT DELETE - [facility] Study: Project # [id number], Analytical Lead: Vipin Carvalho, MS, MPH. SUMMARY: Goal: Establish [...] contact study staff at ; after hours Analytical Lead via the [facility] hospital embossing press operator apprentice . - Please contact study team before resolving/deleting from patients problem list. Study phone number: [phone]. Diagnosis changed due to Research Module. Go to Apparcando for study details. Type 2 diabetes mellitus wit h stage 3 chronic kidney disease, with long-term current use of insulin 02/02/2019 02/19/2021 Overview: Per CKD protocol Hypertensive kidney disease with chronic kidney disease stage III 02/02/2019 03/20/2019 ADVANCE DIRECTIVE INFORMATION 01/03/2019 12/30/2021 Overview: Information given at previous visit Depression 06/21/2018 12/30/2021 Hiatal hernia 06/21/2018 12/30/2021 History of [place] (myocardial infarction) 05/09/2018 12/30/2021 Vulvar lesion 05/09/2018 [...] 08/01/2008 Overview: Study Titile: Event Registry Project #[id number] PI: Rachna Manley MD Please call [phone] with study related questions [employer] Other*[id number] 06/29/2007 11/16/2016 Overview: Study Title: Genomic Markers for Patients with Cardiovascular Disease Project # [id number] Analytical Lead: Rachna Manley MD [phone] Type 2 diabetes mellitus wit h hemoglobin A1c goal of less than 7.0% 11/15/2005 08/07/2009 Overview: Per Diabetes Taxonomy. ICD-10 update of inactive term Spondylolisthesis 05/11/2004 12/30/2021 HTN, goal below 140/90 12/08/200011/06 Overview: Per HTN Taxonomy. S/P total knee replacement, left 04/05/2023 Erosive osteoarthritis of both hands 04/05/2023 documented as of this encounter (statuses as of 08/22/2023) Immunizations Name Administration Dates Next Due COVID-19 mRNA, LNP-s, No Pre serve, 2-Dose Series (First Wave) 10/06/2021,01/05/2021,12/09/2020 COVID-19, LNP-s, No Preserve , Angus-sucrose, Ages 12+ (Pfizer) 03/10/2022 Covid-19, Mrna, Lnp-s, Pf, B ivalent, 30 Mcg, IM, 12 yrs and above (First Wave) 07/13/2022 Pneumococcal Conjugate Vacc, 13 Valent (Prevnar) [...] Telephone Encounter - Sumit Villa DO - 08/22/2023 7:25 AM EST Signed Prescriptions: Disp Refills oxyCODONE HCl 5 MG Oral Tablet (Oxy IR) 20 Tab*0 Sig: Take 1 Tablet by mouth every 8 hours as needed for Pain, Severe. Authorizing Provider: SUMIT VILLA * Telephone Encounter - Tosha Liu [facility] - 08/19/2023 8:27 AM EST Pending Prescriptions: Disp Refills oxyCODONE HCl 5 MG Oral Tablet (Oxy IR) 20 Tab*0 Sig: Take 1 Tablet by mouth every 8 hours as needed for Pain, Severe. documented in this encounter Plan of Treatment Upcoming Encounters Date Type Department Care Team (Late st Contact Info) Description 08/24/2023 2:00 PM EST Therapy Psychology, [facility] [address] [place] [address] Beni Mares, PhD [address] [place] [address] 09/06/2023 11:00 AM EST Office Visit [facility] [address] Sumit Villa DO [address] [place] [address] 09/21/2023 1:00 PM EST Office Visit Pharmacy, [facility] [address] [facility] [place] [address] [place] [facility] [address] 09/23/2023 10:00 AM EST Nurse Only Ancillary [facility] [address] [facility] [place] [address] [place], Nurse [facility] [address] [place] [address] 11/18/2023 11:30 AM EST [facility] [address] [place] [address] Chema Hayden MD [address] [place] [address] 02/23/2024 10:00 AM EDT Office Visit Rheumatology [place] [address] [address] [place] [address] Beni Fernandez MD [address] [place] [address] Scheduled Procedures Name Priority Associated Diagnoses Date/Ti me COLONOSCOPY FLEXIBLE PROXIMA L DIAGNOSTIC Recall History of colonic polyps Health Maintenance Due Date Last Done Comments Hepatitis B (1 of 3 - Risk 3-dose series) 2011 Diabetic Foot Exam 06/03/2022 06/03/2021, 0 03/25/2020, 04/03/2019, Additional history exists COVID-19 Vaccine ( season) 2023 07/13/2022, 03/10/2022, 10/06/2021, Additional history exists Diabetic Eye Exam 08/19/2023 08/19/2022, , 11/27/2019, Additional history exists CKD HGB USE SMARTSET 90507 09/09/202309/09, 09/09/2022, 06/04/2022, Additional history exists Depression Screening 09/22/2023 09/22/2022 GFR 10/21/2023 04/20/2023, 05/11, 11/17/2021, Additional history exists HbA1c 10/21/2023 04/20/2023, 05/11, 12/07/2021, Additional history exists Mammogram 04/08/2024 04/08/2023, 03/11, 01/29/2021, Additional history exists Albumin/Creatinine Ratio 04/20/2024 023, 03/25/2022, 10/30/2020, Additional history exists CKD PHOS USE SMARTSET 79741 04/20/202404/09, 11/17/2021, 03/26/2020, Additional history exists COLONOSCOPY-EVERY 3 YRS AGES 18-100 06/07/2026 06/07/2023, 06/07/2023, 08/29/2019, Additional history exists DXA Scan 11/09/2028 11/09/2021, 12/27/2016 DTaP,Tdap,and Td Vaccines (3 - Td or Tdap) 09/13/2029 09/13/2019, 07/30/2009, 01/09/1996, Additional history exists Pneumococcal Vaccine: 65+ Years Completed 05/09/2018, 11/25/2016, 07/18/2006 Zoster Vaccines Completed 06/25/2020, 03/10, 07/07/2015 LUNG CANCER SCREENING - USE SMARTSET 19588 Completed 02/15/2023, 04/06/2022, 05/09/2020, Additional history exists [...] and were consensually agreed upon. Care Teams Mink Slicer Relationship Specialty Start Date End Date Sumit Villa DO [address] [place] [address] PCP - General Family Medicine 02/16/23 documented as of this encounter
--- OUTSIDE RECORDS SUMMARY | 2023-10-27 07:03 | External Medical Summary | Summary of Care ---
Author Name Unknown Organization [facility] Address [address] [facility] [place] [address] Phone [phone] Care Team Providers Care Wind Energy Technician Name Role Phone Sumit Villa DO Primary Care Provider Reason for Visit * Reason Onset Date Comments Medication Refill 09/23/2023 Encounter Details Date Type Department Care Team (Late st Contact Info) Description 09/23/2023 Refill Pharmacy, [facility] [address] [place] [address] Sumit Villa DO [address] [place] [address] Allergies Active Allergy Reactions Criticality Noted Date Comments Iodinated Contrast Media Itching 08/18/2011 Sitagliptin Phosphate Other (Please comment) 03/07/2013 pancreatitis Niacin High 06/14/2019 Other reaction(s): HOT/BURNING FEELING documented as of this encounter (statuses as of 09/26/2023) Medications Medication Sig Dispensed Refills Start Date [...] 100 g 11 8 Active Glucose Blood (Business CapitalTOUCH ULTRA BLUE) STRPIndications:Typ e 2 diabetes mellitus [...] mg Oral QPM-1999, Reported on 06/02/2023 PEG 3661-EJx-WsHns-NaCl -NaSulf 236 GM Oral Solution Reconstituted Please take according to Colonoscopy prep instructions. 4000 mL 0 3 Active NovoLOG FlexPen 100 UNIT/ML Subcutaneous Solution Pen-injector INJECT 8-12 UNITS PRIOR TO EACH MEAL -EXTRA IF NEEDED BASED ON BLOOD SUGAR 30 mL 1 3 Active Nystatin 542986 UNIT/GM External Cream Apply topically to affected [...] Oral Tablet Extended Release 24 Hour (Ultram ER)Indications:[place] leonor osteoarthritis of both hands Take 1 Tablet by mouth in the morning and 1 Tablet before bedtime. Do not start before August 31, 2023. 60 Tablet 0 3 Active metFORMIN HCl ER 500 MG [...] for Pain, Severe. 20 Tablet 0 3 09/23/20 23 Discontinu ed(Refill) documented as of this encounter (statuses as of 09/26/2023) Active Problems Problem Noted Date Diagnosed Date Moderate aortic valve stenosis 09/02/2021 VINCE (obstructive sleep apnea) 08/20/2021 Chronic kidney disease, stage 3b 03/24/2021 Overview: Per CKD protocol Coronary artery disease invo lving [place] coronary artery of [place] heart without angina pectoris 02/13/2019 Chronic systolic heart failure 02/13/2019 Type 2 diabetes mellitus wit h hemoglobin A1c goal of less than 8.0% 02/02/2019 HTN, goal below 130/80 12/15/2015 Overview: Per HTN Protocol #27. Old [place] (myocardial infarction) 04/21/2015 Dyslipidemia 11/15/2012 Peripheral vascular disease 07/30/2009 S/P angioplasty with stent 08/09/2007 Bicuspid aortic valve Generalized osteoarthritis Fibromyalgia documented as of this encounter (statuses as of 09/26/2023) Resolved Problems Problem Noted Date Diagnosed Date [...] 02/05/2019 05/12/2020 Overview: DO NOT DELETE [facility] Study: Project # [id number], Dip [place]: Jona Mckeon, PhD. SUMMARY: Goal: Establish test [...] contact study staff at ; after hours Dip Brazier via the [facility] cider press operator . Please contact study team before resolving/deleting from patients problem list. Study phone number: [phone]. Diagnosis changed due to Research Module. Go to Snapshot for study details. Encounter for examination fo r normal comparison and control in clinical research program 02/05/2019 06/10/2022 Overview: DO NOT DELETE - [facility] Study: Project # [id number], Dip [place]razier: Vipin Carvalho, MS, MPH. SUMMARY: Goal: Establish [...] contact study staff at ; after hours Dip Brazier via the [facility] cider press operator . - Please contact study team before resolving/deleting from patients problem list. Study phone number: [phone]. Diagnosis changed due to Research Module. Go [...] 12/30/2021 Hiatal hernia 06/21/2018 12/30/2021 History of [place] (myocardial infarction) 05/09/2018 12/30/2021 Vulvar lesion 05/09/2018 [...] 08/01/2008 Overview: Study Titile: Event Registry Project #[id number] PI: Rachna Manley MD Please call [phone] with study related questions [employer] Other*[id number] 06/29/2007 11/16/2016 Overview: Study Title: Genomic Markers for Patients with Cardiovascular Disease Project # [id number] Dip Brazier: Rachna Manley MD [phone] Type 2 diabetes mellitus wit h hemoglobin A1c goal of less than 7.0% 11/15/2005 08/07/2009 Overview: Per Diabetes Taxonomy. ICD-10 update of inactive term Spondylolisthesis 05/11/2004 12/30/2021 HTN, goal below 140/90 12/08/200011/06 Overview: Per HTN Taxonomy. S/P total knee replacement, left 04/05/2023 Erosive osteoarthritis of both hands 04/05/2023 documented as of this encounter (statuses as of 09/26/2023) Immunizations Name Administration Dates Next Due COVID-19 mRNA, LNP-s, No Pre serve, 2-Dose Series ([employer]) 10/06/2021,01/05/2021,12/09/2020 COVID-19, LNP-s, No Preserve , Angus-sucrose, Ages 12+ (Pfizer) 03/10/2022 Covid-19, Mrna, Lnp-s, Pf, B ivalent, 30 Mcg, IM, 12 yrs and above ([employer]) 07/13/2022 Pneumococcal Conjugate Vacc, 13 Valent (Prevnar) [...] Telephone Encounter - Sumit Villa DO - 09/26/2023 8:16 AM EST Signed Prescriptions: Disp Refills oxyCODONE HCl 5 MG Oral Tablet (Oxy IR) 20 Tab*0 Sig: Take 1 Tablet by mouth every 8 hours as needed for Pain, Severe. Authorizing Provider: SUMIT VILLA * Telephone Encounter - Mick Cervantes [facility] - 09/23/2023 8:25 AM ESTPending Prescriptions: Disp Refills oxyCODONE HCl 5 MG Oral Tablet (Oxy IR) 20 Tab*0 Sig: Take 1 Tablet by mouth every 8 hours as needed for Pain, Severe. documented in this encounter Plan of Treatment Upcoming Encounters Date Type Department Care Team (Late st Contact Info) Description 09/26/2023 3:30 PM EST Therapy Psychology, [facility] [address] [place] [address] Beni Mares, PhD [address] [place] [address] 10/19/2023 6:10 PM EST [address] [address] [place] [facility] [address] [facility] [place] [address] 11/18/2023 11:30 AM EST Office Visit Cardiology, [facility] [address] [place] [address] Chema Hayden MD [address] [facility] [place] [address] 12/12/2023 1:00 PM EST Office Visit Family Practice [facility] [address] [facility] [place] [address] Amrita Vergara CRNP [address] [place] [address] 02/23/2024 10:00 AM EDT Office Visit Rheumatology [address] [place] [address] Beni Fernandez MD [address] [place] [address] [place] [address] 05/03/2024 5:40 PM EDT Office Visit Family Practice [facility] [address] [place] [phone] Sumit Villa DO [address] [place] [address] Scheduled Procedures Name Priority Associated Diagnoses Date/Ti me COLONOSCOPY FLEXIBLE PROXIMA L DIAGNOSTIC Recall History of colonic polyps Health Maintenance Due Date Last Done Comments Hepatitis B (1 of 3 - Risk 3-dose series) 2011 COVID-19 Vaccine ( season) 2023 07/13/2022, 03/10/2022, 10/06/2021, Additional history exists CKD HGB USE SMARTSET 69160 09/09/202309/09, 09/09/2022, 06/04/2022, Additional history exists Depression Screening 09/22/2023 09/22/2022 GFR 10/21/2023 04/20/2023, 05/11, 11/17/2021, Additional history exists HbA1c 10/21/2023 04/20/2023, 05/11, 12/07/2021, Additional history exists Mammogram 04/08/2024 04/08/2023, 03/12, 04/06/2022, Additional history exists Albumin/Creatinine Ratio 04/20/2024 023, 03/25/2022, 10/30/2020, Additional history exists CKD PHOS USE SMARTSET 05318 04/20/202404/09, 11/17/2021, 03/26/2020, Additional history exists Diabetic [...] 07/07/2015 LUNG CANCER SCREENING - USE SMARTSET 95329 Completed 02/15/2023, 04/06/2022, 05/09/2020, Additional history exists [...] and were consensually agreed upon. Care Teams Wind Energy Technician Relationship Specialty Start Date End Date Sumit Villa DO [address] [place] [address] PCP - General Family Medicine 02/16/23 documented as of this encounter
--- OUTSIDE RECORDS SUMMARY | 2023-10-27 07:03 | External Medical Summary | Summary of Care ---
Author Name Unknown Organization [facility] Address [address] [facility] [place] [address] Phone [phone] Care Team Providers Care Roads And Parking Lots Sweeper Operator Name Role Phone Bartolome Villa Primary Care Provider Reason for Visit * Reason Onset Date Comments Appointment 10/11/2023 Encounter Details Date Type Department Care Team (Late st Contact Info) Description 10/11/2023 Telephone [facility]rology[facility] [address] [place] [address] Clint Myers MD [address] [facility] [place] [address] Appointment Allergies Active Allergy Reactions Criticality Noted Date [...] 100 g 11 05/09/2018 Active Glucose Blood (Atlas SpineTOUCH ULTRA BLUE) STRPIndications:Typ e 2 diabetes mellitus [...] directed. E11.9 200 Each 1 09/08/2022 Active Lisinopril 10 MG Oral Tablet (Prinivil)Indicatio ns:HTN, goal below 140/90 TAKE 1 TABLET BY MOUTH EVERY DAY 90 Tablet 3 10/18/2022 Active Additional Information Patient taking differently: 10 mg Oral QPM-1999, Reported on 06/02/2023 Rosuvastatin Calcium 40 MG Oral Tablet (Crestor)Indication s:Dyslipidemia, goal LDL below 70 TAKE 1 TABLET BY MOUTH EVERY DAY 90 Tablet 3 12/06/2022 Active Additional Information Patient taking differently: 40 mg Oral QPM-1999, Reported on 06/02/2023 PEG 8245-NXc-KwGsw-NaCl -NaSulf 236 GM Oral Solution Reconstituted Please take according to Colonoscopy prep instructions. 4000 mL 0 01/21/2023 Active NovoLOG FlexPen 100 UNIT/ML Subcutaneous Solution Pen-injector INJECT 8-12 UNITS PRIOR TO EACH MEAL -EXTRA IF NEEDED BASED ON BLOOD SUGAR 30 mL 1 02/06/2023 Active Nystatin 046740 UNIT/GM External Cream Apply topically to affected [...] Oral Tablet Extended Release 24 Hour (Ultram ER)Indications:[place] leonor osteoarthritis of both hands Take 1 Tablet by mouth in the morning and 1 Tablet before bedtime. 60 Tablet 0 09/30/2023 Active documented as of this encounter (statuses as of 10/11/2023) Active Problems Problem Noted Date Diagnosed Date Moderate aortic valve stenosis 09/02/2021 VINCE (obstructive sleep apnea) 08/20/2021 Chronic kidney disease, stage 3b 03/24/2021 Overview: Per CKD protocol Coronary artery disease invo lving yuhaaviatam coronary artery of yuhaaviatam heart without angina pectoris 02/13/2019 Chronic systolic heart failure 02/13/2019 Type 2 diabetes mellitus wit h hemoglobin A1c goal of less than 8.0% 02/02/2019 HTN, goal below 130/80 12/15/2015 Overview: Per HTN Protocol #27. Old CT (myocardial infarction) 04/21/2015 Dyslipidemia 11/15/2012 Peripheral vascular [...] Overview: DO NOT DELETE [facility] DETECT Study: Project # [id number], Moss Picker: Jona Mckeon, PhD. SUMMARY: Goal: Establish test [...] contact study staff at ; after hours Moss Picker via the [facility] metal drilling machine operator . Please contact study team before resolving/deleting from patients problem list. Study phone number: [phone]. Diagnosis changed due to Research Module. Go to Snapshot for study details. Encounter for examination fo r normal comparison and control in clinical research program 02/05/2019 06/10/2022 Overview: DO NOT DELETE - [facility] Study: Project # [id number], Moss Picker: Vipin Carvalho, MS, MPH. SUMMARY: Goal: Establish [...] contact study staff at ; after hours Moss Picker via the [facility] metal drilling machine operator . - Please contact study team before resolving/deleting from patients problem list. Study phone number: [phone]. Diagnosis changed due to Research Module. Go [...] 12/30/2021 Hiatal hernia 06/21/2018 12/30/[address] (myocardial infarction) 05/09/2018 12/30/2021 Vulvar lesion 05/09/2018 [...] 08/01/2008 Overview: Study Titile: Event Registry Project #[id number] PI: Rachna Manley MD Please call [phone] with study related questions [employer] Other*[id number] 06/29/2007 11/16/2016 Overview: Study Title: Genomic Markers for Patients with Cardiovascular Disease Project # [id number] Moss Picker: Rachna Manley MD [phone] Type 2 diabetes mellitus wit h hemoglobin [...] mRNA, LNP-s, No Pre serve, 2-Dose Series ([employer] Systems) 10/06/2021,01/05/2021,12/09/2020 COVID-19, LNP-s, No Preserve , Angus-sucrose, Ages 12+ (Pfizer) 03/10/2022 Covid-19, Mrna, Lnp-s, Pf, B ivalent, 30 Mcg, IM, 12 yrs and above ([employer] Systems) 07/13/2022 Pneumococcal Conjugate Vacc, 13 Valent (Prevnar) [...] encounter Miscellaneous Notes * Telephone Encounter - Elena Velasco RN - 10/11/2023 8:36 AM EST Please call pt to schedule six month follow up due in December with Dr Myers. documented in this encounter Plan of Treatment Upcoming Encounters Date Type Department Care Team (Late st Contact Info) Description 10/19/2023 6:10 PM EST Pharmacy Pharmacy, [facility] [address] [place] [address] [facility] [address] [facility] [place] [address] 11/18/2023 11:30 AM EST Office Visit Cardiology, [facility] [address] [place] [address] Chema Hayden MD [address] [place] [address] 12/12/2023 1:00 PM EST Office Visit [facility] [address] [place] [address] Amrita Vergara CRNP [address] [place] [address] 02/23/2024 10:00 AM EDT Office Visit Rheumatology [place] [address] [facility] [place] [address] Beni Fernandez MD [address] [place] [address] [place] [address] 05/03/2024 5:40 PM EDT Office Visit [facility] [address] [place] [address] Bartolome Villa DO [address] [place] [address] Scheduled Procedures Name Priority Associated Diagnoses Date/Ti me COLONOSCOPY FLEXIBLE PROXIMA L DIAGNOSTIC Recall History of colonic polyps Health Maintenance Due Date Last Done Comments Hepatitis B (1 of 3 - Risk 3-dose series) 2011 COVID-19 Vaccine ( season) 2023 07/13/2022, 03/10/2022, 10/06/2021, Additional history exists CKD HGB USE SMARTSET 78346 09/09/202309/09, 09/09/2022, 06/04/2022, Additional history exists Depression Screening 09/22/2023 09/22/2022 GFR 10/21/2023 04/20/2023, 0803/2022, 11/17/2021, Additional history exists HbA1c 10/21/2023 04/20/2023, 0803/2022, 12/07/2021, Additional history exists Mammogram 04/08/2024 04/08/2023, 03/12, 04/06/2022, Additional history exists Albumin/Creatinine Ratio 04/20/2024 023, 03/25/2022, 10/30/2020, Additional history exists CKD PHOS USE SMARTSET 33264 04/20/202404/09, 11/17/2021, 03/26/2020, Additional history exists Diabetic [...] 07/07/2015 LUNG CANCER SCREENING - USE SMARTSET 01472 Completed 02/15/2023, 04/06/2022, 05/09/2020, Additional history exists [...] and were consensually agreed upon. Care Teams Roads And Parking Lots Sweeper Operator Relationship Specialty Start Date End Date Bartolome Villa DO [address] [place] [address] PCP - General Family Medicine 02/16/23 documented as of this encounter
--- OUTSIDE RECORDS SUMMARY | 2023-10-27 07:03 | External Medical Summary | Summary of Care ---
Author Name Unknown Organization [facility] Address [address] [facility] [place] [address] Phone [phone] Care Team Providers Care Manager Zone Name Role Phone Bartolome Villa DO Primary Care Provider Reason for Referral * Evaluate & Treat - Unlimited Visits (Within 10 days (routine)) - Authorized Specialty Diagnoses / Procedures Referred By Julia guadalupe Referred To Contact Podiatry Diagnoses Type 2 diabetes mellitus with hemoglobin A1c goal of less than 8.0% ([facility]) Left foot pain Bartolome Villa DO [address] [place] [address] Referral ID Status Reason Start Date Expiration Date Visits Requested Visits Authorized [id number] Authorized Specialty Services Required 3 [phone] Question Answer Referral Priority Within 10 days (routine) Where should this appointment be scheduled? [facility] Which condition are you referring this patient for? Diabetic foot care/pain Specific condition? Diabetic Foot pain Medicare Patient? Yes Can Patient perform routine footcare without assistance? No Does patient have a chronic condition? Yes Has patient been seen in the past 6 months? Yes Date last seen for chronic condition: 09/06/2023 Who saw patient for chronic condition? PCP Reason for Visit * Reason Comments Return Visit Encounter Details Date Type Department Care Team ([facility] Contact Info) Description 09/06/2023 11:00 AM EST Office Visit Family [facility] [address] [place] [address] Bartolome Villa DO [address] [place] [address] Type 2 diabetes mellitus with hemoglobin A1c goal of less than 8.0% ([facility])*; Dyslipidemia; VINCE (obstructive sleep apnea); Chronic systolic heart failure ([facility]); Peripheral vascular disease ([facility]); HTN, goal below 130/80; Coronary artery disease involving little river coronary artery of little river heart without angina pectoris; Moderate aortic valve stenosis; Chronic kidney disease, stage 3b ([facility]); S/P angioplasty with stent; DM type 2 nursing care encounter ([facility]); Left foot pain Allergies Active Allergy Reactions Criticality Noted Date Comments Iodinated Contrast Media Itching 08/18/2011 Sitagliptin Phosphate Other (Please comment) 03/07/2013 pancreatitis Niacin High 06/14/2019 Other reaction(s): HOT/BURNING FEELING documented as of this encounter (statuses as of 09/06/2023) Medications Medication Sig Dispensed Refills Start Date [...] hemoglobin A1c goal of less than 7.0% ([facility]) TEST FOUR TIMES DAILY AND UP TO [...] hemoglobin A1c goal of less than 7.0% ([facility]) Use with insulin twice daily as directed. E11.9 200 Each 1 09/08/2022 Active NovoLIN N 100 UNIT/ML Subcutaneous Suspension (insulin isophane human) INJECT 40 UNITS SUBCUTANEOUSLY (UNDER THE SKIN) BEFORE BREAKFAST AND INJECT 40 UNITS BEFORE SUPPER 30 mL 11 09/20/2022 Active Lisinopril 10 MG Oral Tablet (Prinivil)Indicatio [...] mg Oral QPM-1999, Reported on 06/02/2023 PEG 9168-GLc-QpAuf-NaCl -NaSulf 236 GM Oral Solution Reconstituted Please take according to Colonoscopy prep instructions. 4000 mL 0 01/21/2023 Active NovoLOG FlexPen 100 UNIT/ML Subcutaneous Solution Pen-injector INJECT 8-12 UNITS PRIOR TO EACH MEAL -EXTRA IF NEEDED BASED ON BLOOD SUGAR 30 mL 1 02/06/2023 Active Nystatin 143643 UNIT/GM External Cream Apply topically to affected [...] THE WEEK. 135 Tablet 3 07/28/2023 Active oxyCODONE HCl 5 MG Oral Tablet (Oxy IR) Take 1 Tablet by mouth every 8 hours as needed for Pain, Severe. 20 Tablet 0 08/22/2023 Active traMADol HCl ER 100 MG Oral Tablet Extended Release 24 Hour (Ultram ER)Indications:Arimo leonor osteoarthritis of both hands Take 1 Tablet by mouth in the morning and 1 Tablet before bedtime. Do not start before August 31, 2023. 60 Tablet 0 08/31/2023 Active metFORMIN HCl ER 500 MG Oral Tablet Extended Release 24 Hour (Glucophage XR)Indications:Type 2 diabetes mellitus with hemoglobin A1c goal of less than 8.0% (HCC) Take 1 Tablet by mouth at bedtime. 90 Tablet 3 09/06/2023 Active documented as of this encounter (statuses as of 09/06/2023) Active Problems Problem Noted Date Diagnosed Date Moderate aortic valve stenosis 09/02/2021 VINCE (obstructive sleep apnea) 08/20/2021 Chronic kidney disease, stage 3b 03/24/2021 Overview: Per CKD protocol Coronary artery disease invo lving little river coronary artery of little river heart without angina pectoris 02/13/2019 Chronic systolic heart failure 02/13/2019 Type 2 diabetes mellitus wit h hemoglobin A1c goal of less than 8.0% 02/02/2019 HTN, goal below 130/80 12/15/2015 Overview: Per HTN Protocol #27. Old OR (myocardial infarction) 04/21/2015 Dyslipidemia 11/15/2012 Peripheral vascular disease 07/30/2009 S/P angioplasty with stent 08/09/2007 Bicuspid aortic valve Generalized osteoarthritis Fibromyalgia documented as of this encounter (statuses as of 09/06/2023) Resolved Problems Problem Noted Date Diagnosed Date Resolved Date Inflammatory polyarthritis 03/26/2022 0 02/16/2023 Obesity, Class II, BMI 35-39 .9, isolated (see actual BMI) 12/30/2021 04/05/2023 Hypertensive heart and kidne y disease with chronic systolic congestive heart failure and stage 3b chronic kidney disease 03/24/2021 12/31/19 Overview: Per CKD protocol Type 2 diabetes [...] stage 3a chronic kidney disease 08/18/2020 03/26/20 Overview: Per CKD protocol Major depressive disorder, r ecurrent, unspecified 09/13/2019 12/30/2021 Hypertensive heart and kidne y disease with chronic systolic congestive heart failure and stage 3 chronic kidney disease 03/20/2019 0 Overview: Per CKD protocol Encounter for examination fo r normal comparison and control in clinical research program 02/05/2019 05/12/2020 Overview: DO NOT DELETE [employer] DETECT Study: Project # [id number], Superintendent Transportation: Jona Mckeon, PhD. SUMMARY: Goal: Establish test [...] contact study staff at ; after hours Superintendent Transportation via the [facility] hospital tobacco packing machine operator . Please contact study team before resolving/deleting from patients problem list. Study phone number: [phone]. Diagnosis changed due to Research Module. Go to Snapshot for study details. Encounter for examination fo r normal comparison and control in clinical research program 02/05/2019 06/10/2022 Overview: DO NOT DELETE - [employer] DETECT Study: Project # [id number], Superintendent Transportation: Vipin Carvalho, MS, MPH. SUMMARY: Goal: Establish [...] contact study staff at ; after hours Superintendent Transportation via the [facility] hospital tobacco packing machine operator . - Please contact study team before resolving/deleting from patients problem list. Study phone number: [phone]. Diagnosis changed due to Research Module. Go [...] 12/30/2021 Hiatal hernia 06/21/2018 12/30/2021 History of OR (myocardial infarction) 05/09/2018 12/30/2021 Vulvar lesion 05/09/2018 [...] 08/01/2008 Overview: Study Titile: Event Registry Project #[id number] PI: Rachna Manley MD Please call [phone] with study related questions [employer] Research Other*[id number] 06/29/2007 11/16/2016 Overview: Study Title: Genomic Markers for Patients with Cardiovascular Disease Project # [id number] Superintendent Transportation: Rachna Manley MD [phone] Type 2 diabetes mellitus wit h hemoglobin A1c goal of less than 7.0% 11/15/2005 08/07/2009 Overview: Per Diabetes Taxonomy. ICD-10 update of inactive term Spondylolisthesis 05/11/2004 12/30/2021 HTN, goal below 140/90 12/08/200011/06 Overview: Per HTN Taxonomy. S/P total knee replacement, left 04/05/2023 Erosive osteoarthritis of both hands 04/05/2023 documented as of this encounter (statuses as of 09/06/2023) Immunizations Name Administration Dates Next Due COVID-19 mRNA, LNP-s, No Pre serve, 2-Dose Series (Smartjog) 10/06/2021,01/05/2021,12/09/2020 COVID-19, LNP-s, No Preserve , Angus-sucrose, [...] Sign Reading Time Taken Comments Blood Pressure 112/58 09/06/2023 10:58 AM EST Pulse 62 09/06/2023 10:58 AM EST Temperature 36.4 C (97.5 F) 09/06/2023 10:[address] Respiratory Rate 16 09/06/2023 10:58 AM EST Oxygen Saturation 97% 09/06/2023 10:58 AM EST Inhaled Oxygen Concentration - - Weight 88.9 kg (196 lb) 09/06/2023 10:58 AM EST Height - - Body Mass Index 32.12 06/30/2023 10:48 AM EDT documented in this encounter Patient Instructions * Patient Instructions* Stephanie Thornton LPN - 09/06/2023 11:10 AM EST Images from the original note were not included. Diabetes: Keeping Feet Healthy Inspect your feet every day for signs of a problem. Diabetes can damage nerves in your feet and cause neuropathy. This condition makes it hard for you to feel injuries or sore spots. Diabetes can also change blood flow, making it harder for small problems, like a blister, to heal properly. In fact, minor injuries can quickly become serious infections that send you to the hospital. Practice self-care to protect your feet and keep them healthy. Take Special Care Inspect your feet daily for problems such as redness, blisters, cracks, dry skin, or numbness. Use a mirror to see the bottoms of your feet. Or, ask for help. Manage your diabetes. Monitor and control your blood sugar. Take all your medications as prescribed. Avoid walking barefoot, even indoors. Wash your feet with warm water and mild soap. Dry well, especially between toes. Dont treat corns or calluses yourself. Talk to your doctor or police liaison officer (a doctor who specializes in foot care) if you need assistance trimming your toenails. Use moisturizing cream or lotion if you have dry skin, but dont use it between toes. Dont use heating pads on your feet. If you have neuropathy, you could get a burn and not feel it. Stop smoking. Smoking restricts blood flow and can make it harder for wounds to heal. Have Regular Checkups Foot problems can develop quickly. So be sure to follow your healthcare teams schedule for regular checkups. During office visits, take off your shoes and socks as soon as you get in the exam room. Ask your healthcare provider to examine your feet for problems. This will make it easier to find and treat small skin irritations before they get worse. Regular checkups can also help keep track of the blood flow and feeling in your feet. If you have neuropathy, you may need to have checkups more often. Wear Proper Footwear Wearing proper footwear is very important. If areas of your feet have been damaged by too much pressure, your healthcare provider may recommend changing your footwear. In some cases, avoiding high heels or tight work boots may be all thats needed. Or, your healthcare provider may recommend special shoes or custom inserts. These help protect your feet and keep existing irritations from getting worse. If you need special footwear, ask your healthcare provider if you qualify for [employer] diabetic shoe program. Make Sure Shoes and Socks Fit Any pair of shoes--new or old--should feel comfortable as soon as you put them on. There shouldnt be any rubbing when you walk. Wear the right shoe for any activity. For instance, a running shoe is designed to keep your feet injury-free while jogging. Buy shoes at the end of the day, when your feet are larger. Make sure they provide support without feeling too loose. Make sure your socks fit, t oo. Wear soft, seamless, well-padded socks for activity. Cotton or microfiber socks are best to help to absorb sweat. To protect your feet, avoid shoes that are open-toed or open-heeled. If you have questions about what kinds of shoes and socks are best, talk to your healthcare team. Get Regular Exercise Regular exercise improves blood flow in your feet. It also increases foot strength and flexibility.Gentle exercises, like walking or riding a stationary bicycle, are best. You can also do special foot exercises. Just be sure to talk with your healthcare provider before starting any exercise program. Also mention if any exercise causes pain, redness, or other signs of foot problems. Note: If you have any kind of break in the skin of your foot or ankle, keep the area clean. Then call your doctor--especially if the area doesnt appear to be healing. [phone] [employer], [address] [place] [address], [place] [address]. All rights reserved. This information is not intended as a substitute for professional medical care. Always follow your healthcare professional's instructions. Dear Zaina London, The care of your Diabetes is very important to us. A yearly diabetic eye exam is important to protect your vision. If youre getting an eye exam done outside of [facility] please tell your Eye Doctor to fax or mail us the results of your Diabetic Eye Exam at your next visit. Our Address and Fax Number are listed below to help. Thank you for helping us to improve your Diabetes Care Our Office Address and Fax Number: Bartolome Villa, DO Family Practice [facility] [address] [address] Diabetic Retinopathy: Evaluating Your Eyes Diabetic retinopathy is a condition that happens when diabetes damages blood vessels in the rear ofthe eye. It can lead to vision loss. To help catch it early, have a complete dilated eye exam at least once a year. During the exam, the eye healthcare provider will review your medical history, examine your eyes, and check your vision. Women who are and have pre-existing type 1 or type 2 diabetes have an increased risk of retinopathy. Women with diabetes should have an eye exam before or in the first trimester. They should continue to be monitored every trimester and for 1 year after delivery, depending on the severity of the retinopathy. The retina is the light-sensitive part of the eye that allows you to see. High blood sugar can damage blood vessels of the retina and cause them to leak or bleed. This damage can lead to abnormal blood vessel growth. This condition is called diabetic retinopathy. You may not have symptoms early in the disease. Later, there may be floaters, blurred vision, or poor night vision. There may also be partial or complete vision loss. Early cases of diabetic retinopathy can be treated by carefully controlling blood sugar, blood pressure, and cholesterol. Surgery or laser treatments may help restore lost vision. Laser surgery can shrink abnormal blood vessels or close ones that are leaking. Medicines injected in the eye can help decrease swelling of the retina. Home care Take all medicines, including insulin or oral diabetic medicine, exactly as prescribed. Follow the diet advised by your healthcare provider. If you have high cholesterol, follow a low-fat, low-cholesterol diet. Monitor blood sugars as advised. Try to achieve your ideal weight. If you smoke, quit smoking. Tobacco use worsens the effect of diabetes on your blood vessels. If you have high blood pressure, consider buying an automatic blood pressure machine. These are available at most pharmacies. Use this to monitor your blood pressure. Report your blood pressure readings to your healthcare provider. Exercise regularly. Follow-up care Follow up with your healthcare provider, or as advised. You must have a complete eye exam at least once a year, more often if needed. Untreated diabetic retinopathy can lead to complete loss of vision. Occupational therapists can help you adapt to any vision loss you have, including learning techniques to safely administer insulin. When to seek medical advice Call your healthcare provider right away if any of these occur. Increasing blurriness or any sudden changes in your vision Sudden flashes of light inside your eye New floaters (small dots or strings that seem to be moving across your field of vision) Eye pain, redness, or discharge from your eyelid New dark spots appearing in your field of vision Halos around lights Dimness of vision Partial or complete loss of vision Women with diabetes should have a complete eye exam before becoming , or as soon as possible when they find out they are . Retinopathy sometimes worsens during . Your eye exam Your eye healthcare provider uses an eye chart and other tools to check your vision. Then he or sheexamines your eyes for signs of disease. You are given eye drops to widen (dilate) your pupils. Youmay have one or more of the following tests: Tonometry to measure fluid pressure inside the eye. Slit lamp exam to allow the healthcare provider to view the structures of your eye. Ultrasound to create an image of the eye using sound waves. Ultrasound may be used if blood is found in the clear gel that fills the eye (vitreous). Ocular coherence tomography (OCT) to create an image of the retina using light waves. This shows ifthere is fluid leaking into certain parts of the eye. It can also measure the thickness of the retina. Fluorescein angiography This test may be done to check the health of the inside lining of the eye (retina). It also checks the tiny blood vessels (capillaries) that carry blood to the retina. During the test: Photographs are taken of the retina. A dye is then injected into the bloodstream through the arm or hand. The dye travels to the capillaries in the eye. More photographs are taken of the retina. The dye causes the capillaries to stand out on the photographs. You may feel brief nausea during the procedure. For a few hours after the test, your skin, eyes, and urine may appear yellow. Talk with your healthcare provider for more information about this test. Date Last Reviewed: 03/10/201619992601-3655 [employer]. [address] [place] [address], [place] [address]. All rights reserved. This information is not intended as a substitute for professional medical care. Always follow your healthcare professional's instructions. documented in this encounter Progress Notes * Stephanie Thornton LPN - 09/06/2023 11:10 AM EST DM Foot Exam completed today. Provider aware. Stephanie Thornton LPN Socks and Shoes Removed for Annual Diabetic Foot Screening RIGHT FOOT: No Reddened, Cracking, Or Open Areas Noted. RIGHT Dorsalis Pedis Pulse: Palpable RIGHT Posterior Tibial Pulse: Palpable RIGHT Monofilament:Patient reports feeling monofilament pressure on plantar surface of foot LEFT FOOT: No Reddened, Cracking or Open Areas Noted. LEFT Dorsalis Pedis Pulse: Palpable LEFT Posterior Tibial Pulse: Palpable LEFT Monofilament:Patient reports feeling monofilament pressure on plantar surface of foot Do you need diabetic shoes: N/A The importance of having a yearly diabetic eye exam has been discussed with patient. Order and/or Referral placed along with patient instructions. Provider made aware. Stephanie Thornton LPN * Bartolome Villa DO - 09/06/2023 11:09 AM EST Images from the original note were not included. Assessment and Plan Type 2 diabetes mellitus with hemoglobin A1c goal of less than 8.0% ([facility]) - TELEMEDICINE DIABETIC EYE - metFORMIN HCl ER 500 MG Oral Tablet Extended Release 24 Hour (Glucophage XR); Take 1 Tablet by mouth at bedtime. - COMPREHENSIVE METABOLIC PANEL; Future - HEMOGLOBIN A1C; Future - ALBUMIN / CREATININE RATIO, URINE; Future - PODIATRY REFERRAL OP Dyslipidemia - COMPREHENSIVE METABOLIC PANEL; Future - LIPID PANEL WITH DIRECT LDL IF TG IS HIGH; Future VINCE (obstructive sleep apnea) Chronic systolic heart failure ([facility]) Peripheral vascular disease ([facility]) HTN, goal below 130/80 Coronary artery disease involving little river coronary artery of little river heart without angina pectoris Moderate aortic valve stenosis Chronic kidney disease, stage 3b ([facility]) - CBC WITH WBC DIFFERENTIAL; Future - PHOSPHORUS; Future S/P angioplasty with stent DM type 2 nursing care encounter ([facility] - DIABETES FOOT EXAM Left foot pain - PODIATRY REFERRAL OP History of Present Illness Zaina London is a 73 year old female that presents for Return Visit Presents in f/u today Overall doing well with good medication compliance Arthritis still bothering her And having some foot pain/discomfort Physical Exam Vitals: 09/06/23 1058 Temp: 36.4 C (97.5 F) Pulse: 62 Resp: 16 SpO2: 97% BP: 112/58 Physical Exam Constitutional: Appearance: Normal appearance. HENT: Head: Normocephalic and atraumatic. Eyes: Extraocular Movements: Extraocular movements intact. Pupils: Pupils are equal, round, and reactive to light. Cardiovascular: Rate and Rhythm: Normal rate and regular rhythm. Pulmonary: Effort: Pulmonary effort is normal. Breath sounds: Normal breath sounds. Musculoskeletal: Comments: OA of the 5th MTP joint L foot Neurological: General: No focal deficit present. Mental Status: She is alert and oriented to person, place, and time. Psychiatric: Mood and Affect: Mood normal. Behavior: Behavior normal. Wrap-Up Follow-up: Return in about 3 months (around 12/07/2023). | Check-out note: Every 3 months every other with [facility] Time: Total time today was 42 minutes excluding any time spent in the performance of separately billed services. documented in this encounter Plan of Treatment Upcoming Encounters Date Type Department Care Team (Late st Contact Info) Description 09/09/2023 3:30 PM EST Therapy Psychology, [facility] [address] [place] [address] Beni Mares, PhD [address] [place] [address] 09/21/2023 1:00 PM EST Office Visit Pharmacy, [facility] [place] [address] [place] [address] [place] [address] [facility] [address] [place] [address] [place] [id number] 09/23/2023 10:00 AM EST Nurse Only Ancillary [facility] [address] [place] [address] [facility], Nurse Annual Wellness [facility] [address] [place] [address] 11/18/2023 11:30 AM EST Office Visit Cardiology, [facility] [address] [place] [place] [address] Chema Hayden MD [address] [place] [address] 12/12/2023 1:00 PM EST Office Visit [facility] [address] [place] [address] Amrita Vergara CRNP [address] [place] [id number] 02/23/2024 10:00 AM EDT Office Visit Rheumatology [address] [place] [address] Beni Fernandez MD [address] [place] [address], [place] [address] 05/03/2024 5:40 PM EDT Office Visit [facility] [address] [place] [address] Bartolome Villa DO [address] [place] [address] Scheduled Orders Name Type Priority Associated Diagnoses Orde r Schedule CBC WITH WBC DIFFERENTIAL Lab Routine Chronic kidney disease, stage 3b (HCC) Expected: 12/05/2023 (Approximate), Expires: 09/06/2024 COMPREHENSIVE METABOLIC PANEL Lab Routine Type 2 diabetes mellitus with hemoglobin A1c goal of less than 8.0% (HCC) Dyslipidemia Expected: 12/05/2023 (Approximate), Expires: 09/06/2024 HEMOGLOBIN A1C Lab Routine Type 2 diabetes mellitus with hemoglobin A1c goal of less than 8.0% (HCC) Expected: 12/05/2023 (Approximate), Expires: 09/06/2024 ALBUMIN / CREATININE RATIO, URINE Lab Routine Type 2 diabetes mellitus with hemoglobin A1c goal of less than 8.0% (HCC) Expected: 12/05/2023 (Approximate), Expires: 09/06/2024 LIPID PANEL WITH DIRECT LDL IF TG IS HIGH Lab Routine Dyslipidemia Expected: 12/05/2023 (Approximate), Expires: 09/06/2024 PHOSPHORUS Lab Routine Chronic kidney disease, stage 3b (HCC) Expected: 12/05/2023 (Approximate), Expires: 09/05/2024 Scheduled Procedures Name Priority Associated Diagnoses Date/Ti me COLONOSCOPY FLEXIBLE PROXIMA L DIAGNOSTIC Recall History of colonic polyps Scheduled Referrals Name Type Priority Associated Diagnoses Orde r Schedule PODIATRY REFERRAL OP Referral Within 10 days (routine) Type 2 diabetes mellitus with hemoglobin A1c goal of less than 8.0% (HCC) Left foot pain Ordered: 09/06/2023 Health Maintenance Due Date Last Done Comments Hepatitis B (1 of 3 - Risk 3-dose series) 2011 COVID-19 Vaccine ( season) 2023 07/13/2022, 03/10/2022, 10/06/2021, Additional history exists Diabetic Eye Exam 08/19/2023 08/19/2022, , 08/13/2021, Additional history exists CKD HGB USE SMARTSET 73467 09/09/202309/09, 09/09/2022, 06/04/2022, Additional history exists Depression Screening 09/22/2023 09/22/2022 GFR 10/21/2023 04/20/2023, 05/11, 11/17/2021, Additional history exists HbA1c 10/21/2023 04/20/2023, 05/11, 12/07/2021, Additional history exists Mammogram 04/08/2024 04/08/2023, 03/12, 04/06/2022, Additional history exists Albumin/Creatinine Ratio 04/20/2024 023, 03/25/2022, 10/30/2020, Additional history exists CKD PHOS USE SMARTSET 24434 04/20/202404/09, 11/17/2021, 03/26/2020, Additional history exists Diabetic Foot Exam 09/06/2024 [...] 07/07/2015 LUNG CANCER SCREENING - USE SMARTSET 50582 Completed 02/15/2023, 04/06/2022, 05/09/2020, Additional history exists [...] as of this encounter Visit Diagnoses Diagnosis Type 2 diabetes mellitus with hemoglobin A1c goal of less than 8.0% ([facility])- Primary Dyslipidemia Other and unspecified hyperlipidemia VINCE (obstructive sleep apnea) Obstructive sleep apnea (adult) (pediatric) Chronic systolic heart failure ([facility]) Chronic systolic heart failure Peripheral vascular disease ([facility]) Peripheral vascular disease, unspecified HTN, goal below 130/80 Unspecified essential hypertension Coronary artery disease involving [place] coronary artery of [place] heart without angina pectoris Moderate aortic valve stenosis Aortic valve disorders Chronic kidney disease, stage 3b ([facility]) S/P angioplasty with stent Postsurgical percutaneous transluminal coronary angioplasty status DM type 2 nursing care encounter (HCC) Type II or unspecified type diabetes mellitus without mention of complication, not stated as uncontrolled Left foot pain Pain in limb documented in this encounter Advance Directives Latest Code Status on File Code Status Date Activated Date Inactivated Comments Full Code 07/04/2018 11:03 AM 07/04/2018 5:07 PM This order reflects the patients wishes and were consensually agreed upon. Care Teams Manager Zone Relationship Specialty Start Date End Date Bartolome Villa DO [address] [place] [address] PCP - General Family Medicine 02/16/23 documented as of this encounter
--- OUTSIDE RECORDS SUMMARY | 2023-10-27 07:03 | External Medical Summary | Summary of Care ---
Author Name Unknown Organization [facility] Address [address] [facility] [place] [address] Phone [phone] Care Team Providers Care Erp Business Analyst Name Role Phone Bartolome Villa Primary Care Provider Reason for Visit * Reason Comments Follow Up Encounter Details Date Type Department Care Team (Late st Contact Info) Description 08/24/2023 2:00 PM EST Therapy Psychology, [facility] [address] [facility] [place] [address] Beni Mares, PhD [address] [facility] [place] [address] Adjustment disorder with depressed mood* Allergies Active Allergy Reactions Criticality Noted Date Comments Iodinated Contrast Media Itching 08/18/2011 Sitagliptin Phosphate Other (Please comment) 03/07/2013 pancreatitis Niacin High 06/14/2019 Other reaction(s): HOT/BURNING FEELING documented as of this encounter (statuses as of 08/24/2023) Medications Medication Sig Dispensed Refills Start Date [...] 100 g 11 05/09/2018 Active Glucose Blood (Datria SystemsTOUCH ULTRA BLUE) STRPIndications:Typ e 2 diabetes mellitus [...] mg Oral QPM-1999, Reported on 06/02/2023 PEG 3775-CGb-UwHsg-NaCl -NaSulf 236 GM Oral Solution Reconstituted Please take according to Colonoscopy prep instructions. 4000 mL 0 01/21/2023 Active NovoLOG FlexPen 100 UNIT/ML Subcutaneous Solution Pen-injector INJECT 8-12 UNITS PRIOR TO EACH MEAL -EXTRA IF NEEDED BASED ON BLOOD SUGAR 30 mL 1 02/06/2023 Active Nystatin 506953 UNIT/GM External Cream Apply topically to affected [...] THE WEEK. 135 Tablet 3 07/28/2023 Active traMADol HCl ER 100 MG Oral Tablet Extended Release 24 Hour (Ultram ER)Indications:[place] leonor osteoarthritis of both hands Take 1 Tablet by mouth in the morning and 1 Tablet before bedtime. 60 Tablet 0 08/01/2023 Active oxyCODONE HCl 5 MG Oral Tablet (Oxy IR) Take 1 Tablet by mouth every 8 hours as needed for Pain, Severe. 20 Tablet 0 08/22/2023 Active documented as of this encounter (statuses as of 08/24/2023) Active Problems Problem Noted Date Diagnosed Date Moderate aortic valve stenosis 09/02/2021 VINCE (obstructive sleep apnea) 08/20/2021 Chronic kidney disease, stage 3b 03/24/2021 Overview: Per CKD protocol Coronary artery disease invo lving [place] coronary artery of [place] heart without angina pectoris 02/13/2019 Chronic systolic [...] as of this encounter (statuses as of 08/24/2023) Resolved Problems Problem Noted Date Diagnosed Date [...] Overview: DO NOT DELETE [facility] Study: Project # [id number], Accounting Bookkeeper: Jona Mckeon, PhD. SUMMARY: Goal: Establish test [...] contact study staff at ; after hours Accounting Bookkeeper via the [facility] production drilling machine operator . Please contact study team before resolving/deleting from patients problem list. Study phone number: [phone]. Diagnosis changed due to Research Module. Go to Snapshot for study details. Encounter for examination fo r normal comparison and control in clinical research program 02/05/2019 06/10/2022 Overview: DO NOT DELETE - [facility] Study: Project # [id number], Accounting Bookkeeper: Vipin Carvalho, MS, MPH. SUMMARY: Goal: Establish [...] contact study staff at ; after hours Accounting Bookkeeper via the [facility] hospital production drilling machine operator . - Please contact study team before resolving/deleting from patients problem list. Study phone number: [phone]. Diagnosis changed due to Research Module. Go [...] 08/01/2008 Overview: Study Titile: Event Registry Project #[id number] PI: Rachna Manley MD Please call [phone] with study related questions [employer] Other*[id number] 06/29/2007 11/16/2016 Overview: Study Title: Genomic Markers for Patients with Cardiovascular Disease Project # [id number] Accounting Bookkeeper: Rachna Manley MD [phone] Type 2 diabetes mellitus wit h hemoglobin A1c goal of less than 7.0% 11/15/2005 08/07/2009 Overview: Per Diabetes Taxonomy. ICD-10 update of inactive term Spondylolisthesis 05/11/2004 12/30/2021 HTN, goal below 140/90 12/08/200011/06 Overview: Per HTN Taxonomy. S/P total knee replacement, left 04/05/2023 Erosive osteoarthritis of both hands 04/05/2023 documented as of this encounter (statuses as of 08/24/2023) Immunizations Name Administration Dates Next Due COVID-19 mRNA, LNP-s, No Pre serve, 2-Dose Series (PopUp) 10/06/2021,01/05/2021,12/09/2020 COVID-19, LNP-s, No Preserve , Angus-sucrose, Ages 12+ (Pfizer) 03/10/2022 Covid-19, Mrna, Lnp-s, Pf, B ivalent, 30 Mcg, IM, 12 yrs and above (PopUp) 07/13/2022 Pneumococcal Conjugate Vacc, 13 Valent (Prevnar) [...] Progress Notes * Beni Mares, PhD - 08/24/2023 2:51 PM EST Patient location: CLINIC. I was in the same facility as the patient. After connecting through [employer], patient was verified with two unique identifiers. Patient (or authorized legal help desk representative)was then informed that this was a [...] that I have reviewed their record in [employer] and presented the opportunity for them to ask any questions regarding the visit today. The patient agreed to participate. Provider reviewed elements of Outpatient Services Description including limits of confidentiality, how to contact the department, risks and benefits of treatment and consent for treatment. Start Time: 1400 Stop Time: 1450 Total direct [id number] time: 50 minutes BEHAVIORAL MEDICINE PROGRESS NOTE [place] [address] 08/24/2023 1400 TYPE OF VISIT: Individual DIAGNOSIS: Adjustment Disorder with Depressed Mood REASON FOR FOLLOW-UP: Individual therapy Session #: 6 SESSION FOCUS: relationship with her NOTES: I did not administer the FINN 7 or PHQ 9. Safety was evaluated verbally. She denied SI/HI. Pt reported that she has been bothered by fatigue today. She laid in bed most of the day, and only got up to come in for this appt. She has been shaky, having to use a cane when walking. She has been doing a lot of things around the house lately, and unfortunately she doesn't have anyone to help her. Over the past few days she has worked on getting her living room floor clean in preparation to set up her [place] [employer]. She probably did more than she should have, but she wants to make things nice for her -- he deserves it as she believes that he saved her life. She spoke of how hard he had things growing up and how he is such a good man. She wishes that he would pay more attention to his health as she had two heart attacks last summer and she worries about him having another. Next session, she would like to explore the decisions she made in the past with her ex. PROGRESS TOWARDS GOALS: Goal: Improved self-management of [...] = 0 (if anything but 0 administer [place]); 07/01/23: 0 Generalized Anxiety Disorder (FINN-7): 4 [...] regulation/self-soothing skills present: yes -has cultural or holiness beliefs that discourage suicide: yes Risk Level Impression: -Low risk: Initiate outpatient therapy; safety plan may still be indicated; provided crisis numbers Crisis Plan: PLAN INCLUDED IN TREATMENT PLAN FOLLOW-UP PLAN: Return: 2 weeks Action Plan: 1. Continue Cognitive Behavioral Therapy Treatment plan reviewed with the patient. Patient voices understanding and concurs with plan. Beni Mares, PhD Division of Psychiatry & Behavioral Medicine [facility] [phone] documented in this encounter Plan of Treatment Upcoming Encounters Date Type Department Care Team (Late st Contact Info) Description 09/06/2023 11:00 AM EST Office Visit Family Practice [facility] [address] [place] [address] Bartolome Villa DO [address] [place] [address] 09/09/2023 3:30 PM EST Therapy Psychology, [facility] [address] [facility] [place] [address] Beni Mares, PhD [address] [facility] [place] [address] 09/21/2023 1:00 PM EST Office Visit Pharmacy, [facility] [address] [facility] [place] [address] [place], [facility] [address] [place] [address] 09/23/2023 10:00 AM EST Nurse Only Ancillary [facility] [address] [facility] [place] [address] [place], Nurse Annual Wellness [facility] [address] [facility] [place] [address] 11/18/2023 11:30 AM EST [facility] [address] [place] [address] Chema Hayden MD [address] [place] [address] 02/23/2024 10:00 AM EDT Office Visit Rheumatology [place] [id number] [facility] [place] [address] Beni Fernandez MD [address] [place] [address] [place] [address] Scheduled Procedures Name Priority Associated Diagnoses Date/Ti [...] Additional history exists CKD HGB USE SMARTSET 11791 09/09/202309/09, 09/09/2022, 06/04/2022, Additional history exists Depression Screening 09/22/2023 09/22/2022 GFR 10/21/2023 04/20/2023, 05/11, 11/17/2021, Additional history exists HbA1c 10/21/2023 04/20/2023, 0803/2022, 12/07/2021, Additional history exists Mammogram 04/08/2024 04/08/2023, 03/12, 04/06/2022, Additional history exists Albumin/Creatinine Ratio 04/20/2024 023, 03/25/2022, 10/30/2020, Additional history exists CKD PHOS USE SMARTSET 95889 04/20/202404/09, 11/17/2021, 03/26/2020, Additional history exists COLONOSCOPY-EVERY 3 YRS AGES 18-100 06/07/2026 06/07/2023, 06/07/2023, 08/29/2019, Additional history exists DXA Scan 11/09/2028 11/09/2021, 10/12, 12/27/2016 DTaP,Tdap,and Td Vaccines (3 - Td or Tdap) 09/13/2029 09/13/2019, 07/30/2009, 01/09/1996, Additional history exists Pneumococcal Vaccine: 65+ Years Completed 05/09/2018, 11/25/2016, 07/18/2006 Zoster Vaccines Completed 06/25/2020, 03/10, 07/07/2015 LUNG CANCER SCREENING - USE SMARTSET 47940 Completed 02/15/2023, 04/06/2022, 05/09/2020, Additional history exists [...] and were consensually agreed upon. Care Teams Erp Business Analyst Relationship Specialty Start Date End Date Bartolome Villa DO [address] [place] [address] PCP - General Family Medicine 02/16/23 documented as of this encounter
--- OUTSIDE RECORDS SUMMARY | 2023-10-27 07:03 | External Medical Summary | Summary of Care ---
Author Name Unknown Organization [facility] Address [address] [facility] [place] [address] Phone [phone] Care Team Providers Care Spike Driver Name Role Phone Bartolome Villa Primary Care Provider Reason for Visit * Reason Comments Follow Up Encounter Details Date Type Department Care Team (Late st Contact Info) Description 09/09/2023 3:30 PM EST Therapy Psychology, [facility] [address] [place] [address] Beni Mares, PhD [address] [place] [address] Adjustment disorder with depressed mood* Allergies Active Allergy Reactions Criticality Noted Date Comments Iodinated Contrast Media Itching 08/18/2011 Sitagliptin Phosphate Other (Please comment) 03/07/2013 pancreatitis Niacin High 06/14/2019 Other reaction(s): HOT/BURNING FEELING documented as of this encounter (statuses as of 09/09/2023) Medications Medication Sig Dispensed Refills Start Date [...] 100 g 11 05/09/2018 Active Glucose Blood (LyftTOUCH ULTRA BLUE) STRPIndications:Typ e 2 diabetes mellitus [...] mg Oral QPM-1999, Reported on 06/02/2023 PEG 6538-SCd-RbIzu-NaCl -NaSulf 236 GM Oral Solution Reconstituted Please take according to Colonoscopy prep instructions. 4000 mL 0 01/21/2023 Active NovoLOG FlexPen 100 UNIT/ML Subcutaneous Solution Pen-injector INJECT 8-12 UNITS PRIOR TO EACH MEAL -EXTRA IF NEEDED BASED ON BLOOD SUGAR 30 mL 1 02/06/2023 Active Nystatin 248524 UNIT/GM External Cream Apply topically to affected [...] Oral Tablet Extended Release 24 Hour (Ultram ER)Indications:[place] leonor osteoarthritis of both hands Take 1 [...] as of this encounter (statuses as of 09/09/2023) Active Problems Problem Noted Date Diagnosed Date Moderate aortic valve stenosis 09/02/2021 VINCE (obstructive sleep apnea) 08/20/2021 Chronic kidney disease, stage 3b 03/24/2021 Overview: Per CKD protocol Coronary artery disease invo lving [place] coronary artery of [place] heart without angina pectoris 02/13/2019 Chronic systolic heart failure 02/13/2019 Type 2 diabetes mellitus wit h hemoglobin A1c goal of less than 8.0% 02/02/2019 HTN, goal below 130/80 12/15/2015 Overview: Per HTN Protocol #27. Old [place] (myocardial infarction) 04/21/2015 Dyslipidemia 11/15/2012 Peripheral vascular disease 07/30/2009 S/P angioplasty with stent 08/09/2007 Bicuspid aortic valve Generalized osteoarthritis Fibromyalgia documented as of this encounter (statuses as of 09/09/2023) Resolved Problems Problem Noted Date Diagnosed Date [...] [facility] DETECT Study: Project # [id number], Educational Assistant: Jona Mckeon, PhD. SUMMARY: Goal: Establish test [...] contact study staff at ; after hours Educational Assistant via the [facility] industrial machine operator . Please contact study team before resolving/deleting from patients problem list. Study phone number: [phone]. Diagnosis changed due to Research Module. Go to Snapshot for study details. Encounter for examination fo r normal comparison and control in clinical research program 02/05/2019 06/10/2022 Overview: DO NOT DELETE - [facility] Study: Project # [id number], Educational Assistant: Vipin Carvalho, MS, MPH. SUMMARY: Goal: Establish [...] contact study staff at ; after hours Educational Assistant via the [facility] industrial machine operator . - Please contact study team before resolving/deleting from patients problem list. Study phone number: [phone]. Diagnosis changed due to Research Module. Go [...] 12/30/2021 Hiatal hernia 06/21/2018 12/30/2021 History of [place] (myocardial infarction) 05/09/2018 12/30/2021 Vulvar lesion 05/09/2018 [...] 08/01/2008 Overview: Study Titile: Event Registry Project #[id number] PI: Rachna Manley MD Please call [phone] with study related questions [employer] Other*[id number] 06/29/2007 11/16/2016 Overview: Study Title: Genomic Markers for Patients with Cardiovascular Disease Project # [id number] Educational Assistant: Rachna Manley MD [phone] Type 2 diabetes mellitus wit h hemoglobin A1c goal of less than 7.0% 11/15/2005 08/07/2009 Overview: Per Diabetes Taxonomy. ICD-10 update of inactive term Spondylolisthesis 05/11/2004 12/30/2021 HTN, goal below 140/90 12/08/200011/06 Overview: Per HTN Taxonomy. S/P total knee replacement, left 04/05/2023 Erosive osteoarthritis of both hands 04/05/2023 documented as of this encounter (statuses as of 09/09/2023) Immunizations Name Administration Dates Next Due COVID-19 mRNA, LNP-s, No Pre serve, 2-Dose Series (Opendisc) 10/06/2021,01/05/2021,12/09/2020 COVID-19, LNP-s, No Preserve , Angus-sucrose, Ages 12+ (Pfizer) 03/10/2022 Covid-19, Mrna, Lnp-s, Pf, B ivalent, 30 Mcg, IM, 12 yrs and above (Opendisc) 07/13/2022 Pneumococcal Conjugate Vacc, 13 Valent (Prevnar) [...] Progress Notes * Beni Mares, PhD - 09/09/2023 4:26 PM EST Patient location: CLINIC. I was in the same facility as the patient. After connecting through [employer], patient was verified with two unique identifiers. Patient (or authorized legal asset protection representative)was then informed that this was a [...] that I have reviewed their record in [facility] and presented the opportunity for them to ask any questions regarding the visit today. The patient agreed to participate. Provider reviewed elements of Outpatient Services Description including limits of confidentiality, how to contact the department, risks and benefits of treatment and consent for treatment. Start Time: 1530 Stop Time: 162 Total direct [id number]-[id number]-upku time: 57 minutes BEHAVIORAL MEDICINE PROGRESS NOTE [address] [place] [address] 09/09/2023 1530 TYPE OF VISIT: Individual DIAGNOSIS: Adjustment Disorder with Depressed Mood REASON FOR FOLLOW-UP: Individual therapy Session #: 7 SESSION FOCUS: relationship with her NOTES: I did not administer the FINN 7 or PHQ 9. Safety was evaluated verbally. She denied SI/HI. Pt reported that he daughter has been very sick for the past couple of weeks. She has had to take her to the ER a couple of times. It seems that she may have a tic disease that is not Lyme's. She has been feverish and unable to eat. She stated that she would like to figure out why she her . She had a very limited dating history. She had a wonderful boyfriend in High School -- they dated a little in college but the timing was just off. Then she dated another man she met at a dance -- but that didn't last very long. She was very young when her parents split, so she didn't really have them as a model for relationships, and her mother didn't date after her father . Suleiman was very different from the men she had dated previously -- she didn't know enough to be able to identify red flags.Also, she had always done what she was told. She concluded that she him because that's whatshe was told to do. PROGRESS TOWARDS GOALS: Goal: Improved self-management of [...] = 0 (if anything but 0 administer [place]); 07/01/23: 0 Generalized Anxiety Disorder (FINN-7): 4 [...] of Treatment No [facility] Patient Identified [...] regulation/self-soothing skills present: yes -has cultural or moravian beliefs that discourage suicide: yes Risk Level Impression: -Low risk: Initiate outpatient therapy; safety plan may still be indicated; provided crisis numbers Crisis Plan: PLAN INCLUDED IN TREATMENT PLAN FOLLOW-UP PLAN: Return: 2 weeks Action Plan: 1. Continue Cognitive Behavioral Therapy Treatment plan reviewed with the patient. Patient voices understanding and concurs with plan. Beni Mares, PhD Division of Psychiatry & Behavioral Medicine [facility] [phone] documented in this encounter Plan of Treatment Upcoming Encounters Date Type Department Care Team (Late st Contact Info) Description 09/21/2023 1:00 PM EST Office Visit Pharmacy, [facility] [address] [facility] [place] [address] [facility] [place] [address] 09/23/2023 10:00 AM EST Nurse Only Ancillary [facility] [address] [facility] [place] [address] [facility], Nurse Annual Wellness [facility] [address] [facility] [place] [address] 11/18/2023 11:30 AM EST Office Visit Cardiology, [facility] [address] [place] [address] Chema Hayden MD [address] [place] [address] 12/12/2023 1:00 PM EST Office Visit Family Practice [facility] [address] [place] [address] Amriat Vergara CRNP [address] [place] [address] 02/23/2024 10:00 AM EDT Office Visit Rheumatology [address] [place] [address] Beni Fernandez MD [address] [place] [address] [place] [address] 05/03/2024 5:40 PM EDT Office Visit Family [facility] [address] [place] [address] Bartolome Villa, [address] [place] [address] Scheduled Procedures Name Priority Associated Diagnoses Date/Ti me COLONOSCOPY FLEXIBLE PROXIMA L DIAGNOSTIC Recall History of colonic polyps Health Maintenance Due Date Last Done Comments Hepatitis B (1 of 3 - Risk 3-dose series) 2011 COVID-19 Vaccine ( season) 2023 07/13/2022, 03/10/2022, 10/06/2021, Additional history exists CKD HGB USE SMARTSET 93270 09/09/202309/09, 09/09/2022, 06/04/2022, Additional history exists Depression Screening 09/22/2023 09/22/2022 GFR 10/21/2023 04/20/2023, 05/11, 11/17/2021, Additional history exists HbA1c 10/21/2023 04/20/2023, 05/11, 12/07/2021, Additional history exists Mammogram 04/08/2024 04/08/2023, 03/12, 04/06/2022, Additional history exists Albumin/Creatinine Ratio 04/20/2024 023, 03/25/2022, 10/30/2020, Additional history exists CKD PHOS USE SMARTSET 04418 04/20/202404/09, 11/17/2021, 03/26/2020, Additional history exists Diabetic [...] 07/07/2015 LUNG CANCER SCREENING - USE SMARTSET 84790 Completed 02/15/2023, 04/06/2022, 05/09/2020, Additional history exists [...] and were consensually agreed upon. Care Teams Spike Driver Relationship Specialty Start Date End Date Bartolome Villa DO [address] [place] [address] PCP - General Family Medicine 02/16/23 documented as of this encounter
--- OUTSIDE RECORDS SUMMARY | 2023-10-27 07:03 | External Medical Summary | Summary of Care ---
Author Name Unknown Organization [facility] Address [address] [address] Phone [phone] Care Team Providers Care District Director Name Role Phone Bartolome Villa Primary Care Provider Reason for Visit * Reason Comments eRx-Medication Refill Encounter Details Date Type Department Care Team (Late st Contact Info) Description 09/22/2023 Refill Family Practice [facility] [address] [place] [address] Steven Falcon MD [address] [place] [address] Allergies Active Allergy Reactions Criticality Noted Date Comments Iodinated Contrast Media Itching 08/18/2011 Sitagliptin Phosphate Other (Please comment) 03/07/2013 pancreatitis Niacin High 06/14/2019 Other reaction(s): HOT/BURNING FEELING documented as of this encounter (statuses as of 09/22/2023) Medications Medication Sig Dispensed Refills Start Date [...] E11.9 200 Each 1 09/08/20 22 Active Lisinopril 10 MG Oral Tablet (Prinivil)Indicati ons:HTN, goal below 140/90 TAKE 1 TABLET BY MOUTH EVERY DAY 90 Tablet 3 10/18/19 23 Active Additional Information Patient taking differently: 10 mg Oral QPM-1999, Reported on 06/02/2023 Rosuvastatin Calcium 40 MG Oral Tablet (Crestor)Indicatio ns:Dyslipidemia, goal LDL below 70 TAKE 1 TABLET BY MOUTH EVERY DAY 90 Tablet 3 12/06/19 23 Active Additional Information Patient taking differently: 40 mg Oral QPM-1999, Reported on 06/02/2023 PEG 9916-PAe-BaMiz-NaC l-NaSulf 236 GM Oral Solution Reconstituted Please take according to Colonoscopy prep instructions. 4000 mL 0 01/22/20 23 Active NovoLOG FlexPen 100 UNIT/ML Subcutaneous Solution Pen-injector INJECT 8-12 UNITS PRIOR TO EACH MEAL -EXTRA IF NEEDED BASED ON BLOOD SUGAR 30 mL 1 02/07/20 Active Nystatin 728913 UNIT/GM External Cream Apply topically to affected area 2 times a day. Apply to vulva 2 times a day 45 g 1 04/11/20 Active Additional Information Patient taking differently:TopicalPRN, Apply to vulva 2 times a day, Reported on 04/20/2023 Estradiol 0.1 MG/GM Vaginal Cream (Estrace) To vulva daily for 4 weeks and then 2 times a week 42.5 g 04/22/20 Active Omeprazole 40 MG Oral Capsule [...] CAPSULES EVERY EVENING 90 Capsule 11 05/25/20 23 Active Isosorbide Mononitrate ER 30 MG Oral [...] EVERY DAY DIRECTED 90 Tablet 3 07/14/20 23 Active amLODIPine Besylate 5 MG Oral Tablet [...] OF THE WEEK. 135 Tablet 3 07/28/20 Active oxyCODONE HCl 5 MG Oral Tablet (Oxy IR) Take 1 Tablet by mouth every 8 hours as needed for Pain, Severe. 20 Tablet 0 08/22/20 23 Active traMADol HCl ER 100 MG Oral Tablet Extended Release 24 Hour (Ultram ER)Indications:Ero sive osteoarthritis of both hands Take 1 Tablet by mouth in the morning and 1 Tablet before bedtime. Do not start before August 31, 2023. 60 Tablet 0 08/31/20 23 Active metFORMIN HCl ER 500 MG [...] SUPPER. 30 mL 1 09/22/20 23 Active NovoLIN N 100 UNIT/ML Subcutaneous Suspension (insulin isophane human) INJECT 40 UNITS SUBCUTANEOUSLY (UNDER THE SKIN) BEFORE BREAKFAST AND INJECT 40 UNITS BEFORE SUPPER 30 mL 11 09/20/20 22 023 Discontinued documented as of this encounter (statuses as of 09/22/2023) Active Problems Problem Noted Date Diagnosed Date Moderate aortic valve stenosis 09/02/2021 VINCE (obstructive sleep apnea) 08/20/2021 Chronic kidney disease, stage 3b 03/24/2021 Overview: Per CKD protocol Coronary artery disease invo lving [place] coronary artery of [place] heart without angina pectoris 02/13/2019 Chronic systolic heart failure 02/13/2019 Type 2 diabetes mellitus wit h hemoglobin A1c goal of less than 8.0% 02/02/2019 HTN, goal below 130/80 12/15/2015 Overview: Per HTN Protocol #27. Old [place] (myocardial infarction) 04/21/2015 Dyslipidemia 11/15/2012 Peripheral vascular disease 07/30/2009 S/P angioplasty with stent 08/09/2007 Bicuspid aortic valve Generalized osteoarthritis Fibromyalgia documented as of this encounter (statuses as of 09/22/2023) Resolved Problems Problem Noted Date Diagnosed Date [...] DO NOT DELETE [facility] [place] Study: Project # [id number], Quality Assurance Advisor: Jona Mckeon, PhD. SUMMARY: Goal: Establish test [...] contact study staff at ; after hours Quality Assurance Advisor via the [facility] router operator radial . Please contact study team before resolving/deleting from patients problem list. Study phone number: [phone]. Diagnosis changed due to Research Module. Go to Snapshot for study details. Encounter for examination fo r normal comparison and control in clinical research program 02/05/2019 06/10/2022 Overview: DO NOT DELETE - [facility] Study: Project # [id number], Quality Assurance Advisor: Vipin Carvalho, MS, MPH. SUMMARY: Goal: Establish [...] contact study staff at ; after hours Quality Assurance Advisor via the [facility] router operator radial . - Please contact study team before resolving/deleting from patients problem list. Study phone number: [phone]. Diagnosis changed due to Research Module. Go [...] 12/30/2021 Hiatal hernia 06/21/2018 12/30/2021 History of FL (myocardial infarction) 05/09/2018 12/30/2021 Vulvar lesion 05/09/2018 [...] 08/01/2008 Overview: Study Titile: Event Registry Project #[id number] PI: Rachna Manley MD Please call [phone] with study related questions [employer] Other*[id number] 06/29/2007 11/16/2016 Overview: Study Title: Genomic Markers for Patients with Cardiovascular Disease Project # [id number] Quality Assurance Advisor: Rachna Manley MD [phone] Type 2 diabetes mellitus wit h hemoglobin A1c goal of less than 7.0% 11/15/2005 08/07/2009 Overview: Per Diabetes Taxonomy. ICD-10 update of inactive term Spondylolisthesis 05/11/2004 12/30/2021 HTN, goal below 140/90 12/08/200011/06 Overview: Per HTN Taxonomy. S/P total knee replacement, left 04/05/2023 Erosive osteoarthritis of both hands 04/05/2023 documented as of this encounter (statuses as of 09/22/2023) Immunizations Name Administration Dates Next Due COVID-19 mRNA, LNP-s, No Pre serve, 2-Dose Series (Servoy) 10/06/2021,01/05/2021,12/09/2020 COVID-19, LNP-s, No Preserve , Angus-sucrose, Ages 12+ (Pfizer) 03/10/2022 Covid-19, Mrna, Lnp-s, Pf, B ivalent, 30 Mcg, IM, 12 yrs and above (Servoy) 07/13/2022 Pneumococcal Conjugate Vacc, 13 Valent (Prevnar) [...] encounter Miscellaneous Notes * Telephone Encounter - Jesi Vasquez formerly [facility] - 09/22/2023 12:38 PM ESTSigned Prescriptions: Disp Refills NovoLIN N 100 UNIT/ML Subcutaneous Suspens*30 mL 1 Sig: INJECT 40 UNITS SUBCUTANEOUSLY (UNDER THE SKIN) BEFORE BREAKFAST AND INJECT 40 UNITS BEFORE SUPPER.Authorizing Provider: STEVEN FALCON User: JESI VASQUEZ documented in this encounter Plan of Treatment Upcoming Encounters Date Type Department Care Team (Late st Contact Info) Description 09/26/2023 3:30 PM EST Therapy Psychology, [facility] [address] [place], [place] [address] Beni Mares, PhD [address] [place] [address] 10/19/2023 6:10 PM EST Pharmacy Pharmacy, [facility] [address] [address] [facility] [address] [place] [address] 11/18/2023 11:30 AM EST Office Visit Cardiology, [facility] [address] [place] [address] Chema Hayden MD [address] [place] [address] 12/12/2023 1:00 PM EST Office Visit Family Practice [facility] [address] [place] [address] Amrita Vergara CRNP [address] [place] [address] 02/23/2024 10:00 AM EDT Office Visit Rheumatology [address] [place] [address] Beni Fernandez MD [address] [place] [address] [place] [address] 05/03/2024 5:40 PM EDT Office Visit Family [facility] [address] [place] [address] Bartolome Villa, [address] [place] [address] Scheduled Procedures Name Priority Associated Diagnoses Date/Ti me COLONOSCOPY FLEXIBLE PROXIMA L DIAGNOSTIC Recall History of colonic polyps Health Maintenance Due Date Last Done Comments Hepatitis B (1 of 3 - Risk 3-dose series) 2011 COVID-19 Vaccine ( season) 2023 07/13/2022, 03/10/2022, 10/06/2021, Additional history exists CKD HGB USE SMARTSET 16809 09/09/202309/09, 09/09/2022, 06/04/2022, Additional history exists Depression Screening 09/22/2023 09/22/2022 GFR 10/21/2023 04/20/2023, 05/11, 11/17/2021, Additional history exists HbA1c 10/21/2023 04/20/2023, 05/11, 12/07/2021, Additional history exists Mammogram 04/08/2024 04/08/2023, 03/12, 04/06/2022, Additional history exists Albumin/Creatinine Ratio 04/20/2024 023, 03/25/2022, 10/30/2020, Additional history exists CKD PHOS USE SMARTSET 01642 04/20/202404/09, 11/17/2021, 03/26/2020, Additional history exists Diabetic [...] 07/07/2015 LUNG CANCER SCREENING - USE SMARTSET 05379 Completed 02/15/2023, 04/06/2022, 05/09/2020, Additional history exists [...] and were consensually agreed upon. Care Teams District Director Relationship Specialty Start Date End Date Bartolome Villa DO [facility] [place] [address] PCP - General Family Medicine 02/16/23 documented as of this encounter
--- OUTSIDE RECORDS SUMMARY | 2023-10-27 07:04 | External Medical Summary | Summary of Care ---
Author Name Unknown Organization [facility] Address [address] [facility] [place] [address] Phone [phone] Care Team Providers Care Professor Of Apologetics Name Role Phone Sumit Villa Primary Care Provider Reason for Visit * Reason Comments eRx-Medication Refill Encounter Details Date Type Department Care Team Description 07/13/2023 Refill Family Practice [facility] [address] [place] [place] [address] Elif Falcon MD [address] [place] [address] Erosive osteoarthritis of both hands; Gout of left wrist, unspecified cause, unspecified chronicity Allergies Active Allergy Reactions Severity Noted Date Comments Iodinated Contrast Media Itching 08/18/2011 Sitagliptin Phosphate Other (Please comment) 03/07/2013 pancreatitis Niacin High 06/14/2019 Other reaction(s): HOT/BURNING FEELING documented as of this encounter (statuses as of 07/14/2023) Medications Medication Sig Dispensed Refills Start Date [...] of less than 7.0% ([facility]) TEST FOUR TIMES DAILY AND UP TO [...] mouth as needed for Constipation. 0 Active Metoprolol Succinate ER 100 MG Oral Tablet Extended Release 24 Hour (toPROL XL)Indications:Old myocardial infarct TAKE 1 TABLET BY MOUTH EVERY EVENING 90 Tablet 3 08/02/20 22 Active amLODIPine Besylate 5 MG Oral Tablet (Norvasc) TAKE 1 TABLET BY MOUTH EVERY DAY 90 Tablet 3 08/02/20 22 Active Additional Information Patient taking differently: 5 mg Oral QPM-1999, Reported on 06/02/2023 Furosemide 20 MG Oral Tablet (Lasix)Indications :Heart failure, systolic, due to CAD Take 40 mg by mouth on Mondays, Wednesdays, and Fridays. Take 20 mg by mouth all other days of the week. 135 Tablet 3 08/10/20 22 Active Famotidine 20 MG Oral Tablet (Pepcid)Indication s:Heartburn Take by mouth 1 Tablet before bedtime. 90 Tablet 5 08/13/20 22 Active BD Insulin Syringe Ultrafine 31G X 15/64" 0.5 ML (Insulin Syringe-Needle U-100)Indications: Type 2 diabetes mellitus with hemoglobin A1c goal of less than 7.0% (HCC) Use with insulin twice daily as directed. E11.9 200 Each 1 09/08/20 22 Active NovoLIN N 100 UNIT/ML Subcutaneous Suspension (insulin isophane human) INJECT 40 UNITS SUBCUTANEOUSLY (UNDER THE SKIN) BEFORE BREAKFAST AND INJECT 40 UNITS BEFORE SUPPER 30 mL 11 09/20/20 22 Active Lisinopril 10 MG Oral Tablet [...] mg Oral QPM-1999, Reported on 06/02/2023 PEG 8435-QYn-AcAes-NaC l-NaSulf 236 GM Oral Solution Reconstituted Please take according to Colonoscopy prep instructions. 4000 mL 0 01/22/20 23 Active NovoLOG FlexPen 100 UNIT/ML Subcutaneous Solution Pen-injector INJECT 8-12 UNITS PRIOR TO EACH MEAL -EXTRA IF NEEDED BASED ON BLOOD SUGAR 30 mL 1 02/07/20 23 Active Nystatin 282879 UNIT/GM External Cream Apply topically to affected area 2 times a day. Apply to vulva 2 times a day 45 g 1 04/11/20 23 Active Additional Information Patient taking differently:TopicalPRN, Apply to vulva 2 times a day, Reported on 04/20/2023 Estradiol 0.1 MG/GM Vaginal Cream (Estrace) To vulva daily for 4 weeks and then 2 times a week 42.5 g 3 04/22/20 23 Active Omeprazole 40 MG Oral Capsule Delayed Release (PriLOSEC) TAKE 1 CAPSULE BY MOUTH EVERY DAY 1 HOUR BEFORE THE FIRST MEAL OF THE DAY 90 Capsule 3 04/18/20 23 Active Citalopram Hydrobromide 20 MG Oral Tablet (CeleXA) Take 1/2 tablet by mouth daily for 4 weeks then take 1 tablet by mouth daily. 30 Tablet 11 04/25/20 23 Active Prasugrel HCl 10 MG Oral Tablet [...] ER) Take by mouth daily. 0 Active traMADol HCl ER 100 MG Oral Tablet Extended Release 24 Hour (Ultram ER)Indications:Ero sive osteoarthritis of both hands Take 1 Tablet by mouth in the morning and 1 Tablet before bedtime. 60 Tablet 0 06/20/20 23 Active oxyCODONE HCl 5 MG Oral Tablet (Oxy IR) Take 1 Tablet by mouth every 8 hours as needed for Pain, Severe. 20 Tablet 0 06/20/20 23 Active predniSONE 5 MG Oral Tablet (Deltasone)Indicat ions:Erosive osteoarthritis of both hands,Gout of left wrist, unspecified cause, unspecified chronicity TAKE 1 TABLET BY MOUTH EVERY DAY DIRECTED 90 Tablet 3 07/14/20 23 Active predniSONE 5 MG Oral Tablet (Deltasone)Indicat ions:Erosive osteoarthritis of both hands,Gout of left wrist, unspecified cause, unspecified chronicity TAKE 1 TABLET BY MOUTH EVERY DAY DIRECTED 90 Tablet 3 08/02/20 22 023 Discontinued documented as of this encounter (statuses as of 07/14/2023) Active Problems Problem Noted Date Moderate aortic valve stenosis 1 VINCE (obstructive sleep apnea) 08/20/2021 Chronic kidney disease, stage 3b 021 Overview: Per CKD protocol Coronary artery disease invo lving [place] coronary artery of [place] heart without angina pectoris 02/13/2019 Chronic systolic heart failure 9 Type 2 diabetes mellitus with hemoglobin A1c goal of less than 8.0% 02/02/2019 HTN, goal below 130/80 12/15/2015 Overview: Per HTN Protocol #27. Old [place] (myocardial infarction) 5 Dyslipidemia 11/15/2012 Peripheral vascular disease 07/30/2009 S/P angioplasty with stent 08/09/2007 Bicuspid aortic valve Generalized osteoarthritis Fibromyalgia documented as of this encounter (statuses as of 07/14/2023) Resolved Problems Problem Noted Date Resolved Date Inflammatory polyarthritis 03/26/202202/16 Obesity, Class II, BMI 35-39.9, isolated (see ac tual BMI) 12/30/2021 04/05/2023 Hypertensive heart and kidne y disease with chronic systolic congestive heart failure and stage 3b chronic kidney disease 03/24/2021 12/30/2021 Overview: Per CKD protocol Type 2 diabetes mellitus wit h stage 3b chronic kidney disease, with long-term current use of insulin 03/24/2021 022 Overview: Per CKD protocol Type 2 diabetes mellitus wit h stage 3a chronic kidney disease, with long-term current use of insulin 02/17/2021 021 Overview: Per CKD protocol Chronic kidney disease, stage 3a 02/17/2021 03/26/2021 Overview: Per CKD protocol Hypertensive heart and kidne y disease with chronic systolic congestive heart failure and stage 3a chronic kidney disease 08/18/2020 03/26/2021 Overview: Per CKD protocol Major depressive disorder, recurrent, unspecifie d 09/13/2019 12/30/2021 Hypertensive heart and kidne y disease with chronic systolic congestive heart failure and stage 3 chronic kidney disease 03/20/2019 08/21/2020 Overview: Per CKD protocol Encounter for examination fo r normal comparison and control in clinical research program 02/05/2019 05/12/2020 Overview: DO NOT DELETE [facility] DETECT Study: Project # [id number], Disability Counselor: Jona Mckeon, PhD. SUMMARY: Goal: Establish test [...] contact study staff at ; after hours Disability Counselor via the [facility] block splitter operator . Please contact study team before resolving/deleting from patients problem list. Study phone number: [phone]. Diagnosis changed due to Research Module. Go to Snapshot for study details. Encounter for examination fo r normal comparison and control in clinical research program 02/05/2019 06/10/2022 Overview: DO NOT DELETE [facility] Study: Project # [id number], Disability Counselor: Vipin Carvalho, MS, MPH. SUMMARY: Goal: Establish [...] contact study staff at ; after hours Disability Counselor via the [facility] block splitter operator . - Please contact study team before resolving/deleting from patients problem list. Study phone number: [phone]. Diagnosis changed due to Research Module. Go to Stir for study details. Type 2 diabetes mellitus wit h stage 3 chronic kidney disease, with long-term current use of insulin 02/02/2019 021 Overview: Per CKD protocol Hypertensive kidney disease with chronic kidney disease stage III 02/02/2019 03/20/2019 ADVANCE DIRECTIVE INFORMATION 01/03/2019 Overview: Information given at previous visit Depression 06/21/2018 12/30/2021 Hiatal hernia 06/21/2018 12/30/2021 History of [place] (myocardial infarction) 05/09/2018 12/30/2021 Vulvar lesion 05/09/2018 12/30/[address] scan, chest 09/14/2017 12/31/19 History of smoking 30 or more pack years 017 12/30/2021 Controlled substance agreement signed 07/20/2016 04/05/2023 Heart failure, systolic, due to CAD 12/04/2015 05/09/2018 Kidney disease, chronic, stage III (GFR 30-59 ml /min) 01/20/2015 02/21/2019 Overview: Per CKD protocol #1 HTN, GOAL BELOW 140/80 05/29/2012 6 Overview: Per HTN Protocol #27. HTN, GOAL BELOW 130/80 11/06/2009 2 Overview: Per HTN Taxonomy. Dyslipidemia, goal LDL below 100 09/25/2009 10/26/2011 Overview: Per Lipid Taxonomy. Type 2 diabetes mellitus, wi th long-term current use of insulin 08/07/2009 04/05/2023 Overview: Per Diabetes Taxonomy. ICD-10 update of inactive term Dyslipidemia, goal to be determined 07/30/2009 09/25/2009 Overview: Per Lipid Taxonomy. S/P angioplasty with stent 08/09/200711/07 Overview: Resolved per Duplicate Protocol #2. EXAMINATION OF PARTICIPANT IN CLINICAL TRIAL- Ev ent registry 06/29/2007 08/01/2008 Overview: Study Titile: Event Registry Project #[id number] PI: Rachna Manley MD Please call [phone] with study related questions [employer] Other*[id number] 200611/16/2016 Overview: Study Title: Genomic Markers for Patients with Cardiovascular Disease Project # [id number] Disability Counselor: Rachna Manley MD [phone] Type 2 diabetes mellitus wit h hemoglobin A1c goal of less than 7.0% 11/15/2005 08/07/2009 Overview: Per Diabetes Taxonomy. ICD-10 update of inactive term Spondylolisthesis 05/11/2004 12/30/2021 HTN, goal below 140/90 12/08/2000 0 Overview: Per HTN Taxonomy. S/P total knee replacement, left 04/05/2023 Erosive osteoarthritis of both hands 04/05/2023 documented as of this encounter (statuses as of 07/14/2023) Immunizations Name Administration Dates Next Due COVID-19 mRNA, LNP-s, No Pre serve, 2-Dose Series (Zhilian Zhaopin) 10/06/2021,01/05/2021,12/09/2020 COVID-19, LNP-s, No Preserve , Angus-sucrose, Ages 12+ (Zhilian Zhaopin) 03/10/2022 Covid-19, Mrna, Lnp-s, Pf, B ivalent, 30 Mcg, IM, 12 yrs and above (Zhilian Zhaopin) 07/13/2022 Pneumococcal Conjugate Vacc, 13 Valent (Prevnar) 11/25/2016 Pneumococcal Polysaccharide PPV23 (Pneumovax) 05/09/2018,07/18/2006 SEASONAL INFLUENZA, PF, 6 M & Above, IM , (FLULAVAL or FLUZONE) 06/30/2021,08/24/2018,07/05/2017 Seasonal Influenza, Quadriva lent Hd (Fluzone Hd) [...] = 0.6 oz pur e alcohol) rare Food Insecurity Answer Date Recorded Within the past 12 months, y ou worried that your food would run out before you got money to buy more. Never true 09/22/2022 Within the past 12 months, t he food you bought just didn't last and you didn't have money to get more. Never true 09/22/2022 Sex Assigned at Date Recorded Female 03/25/2020 1:53 PM E DT Job Start Date Occupation Industry Not on file Not on file Not on file documented as of this encounter Miscellaneous Notes * Telephone Encounter - Sumit Vilal DO - 07/14/2023 8:54 AM EDTSigned Prescriptions: Disp Refills predniSONE 5 MG Oral Tablet (Deltasone) 90 Tab*3 Sig: TAKE 1 TABLET BY MOUTH EVERY DAY DIRECTED Authorizing Provider: SUMIT VILLA * Telephone Encounter - Zulma Kiser [facility] - 07/14/2023 8:14 AM EDTPending Prescriptions: Disp Refills predniSONE 5 MG Oral Tablet [Pharmacy Med *90 Tab*3 Sig: TAKE 1 TABLET BY MOUTH EVERY DAY DIRECTED documented in this encounter Plan of Treatment Upcoming Encounters Date Type Specialty Care Team Description 07/15/2023 Therapy Psychology Beni Mares, PhD [address] [facility] [place] [address] 09/06/2023 Office Visit Family Medicine Sumit Villa DO [address] [place] [address] 09/16/2023 Office Visit Pharmacy [facility] [address] [place] [address] 09/23/2023 Nurse Only Ancillary [facility], Nurse Annual Wellness [place] [address] [place] [address] 11/18/2023 Office Visit Cardiology Chema Hayden MD [address] [place] [address] 02/23/2024 Office Visit Rheumatology Beni Fern[facility] [place] [address] Scheduled Procedures Name Priority Associated Diagnoses Date/Ti me COLONOSCOPY FLEXIBLE PROXIMA L DIAGNOSTIC Recall History of colonic polyps Health Maintenance Due Date Last Done Comments Diabetic Foot Exam 06/03/2022 06/03/2021, 0 03/25/2020, 04/03/2019, Additional history exists COVID-19 Vaccine ( season) 2023 07/13/2022, 03/10/2022, 10/06/2021, Additional history exists Influenza Vaccine (FLU shot) (#1) 2023 07/16/2022, 06/30/2021, 06/10/2020, Additional history exists DIABETES-EYE EXAM 08/19/2023 08/19/2022, , 11/27/2019, Additional history exists CKD HGB USE SMARTSET 01459 09/09/202309/09, 09/09/2022, 06/04/2022, Additional history exists Depression Screening 09/22/2023 09/22/2022 GFR 10/21/2023 04/20/2023, 05/11, 11/17/2021, Additional history exists HbA1c 10/21/2023 04/20/2023, 05/11, 12/07/2021, Additional history exists Mammogram 04/08/2024 04/08/2023, 03/11, 01/29/2021, Additional history exists Albumin/Creatinine Ratio 04/20/2024 023, 03/25/2022, 10/30/2020, Additional history exists CKD PHOS USE SMARTSET 40509 04/20/202404/09, 11/17/2021, 03/26/2020, Additional history exists COLONOSCOPY-EVERY 3 YRS AGES 18-100 06/07/2026 06/07/2023, 06/07/2023, 08/29/2019, Additional history exists DXA Scan 11/09/2028 11/09/2021, 12/27/2016 DTaP,Tdap,and Td Vaccines (3 - Td or Tdap) 09/13/2029 09/13/2019, 07/30/2009, 01/09/1996, Additional history exists Pneumococcal Vaccine: 65+ Years Completed 05/09/2018, 11/25/2016, 07/18/2006 Zoster Vaccines Completed 06/25/2020, 03/10, 07/07/2015 LUNG CANCER SCREENING - USE SMARTSET 62434 Completed 02/15/2023, 04/06/2022, 05/09/2020, Additional history exists COLONOSCOPY-EVERY 2 YRS AGES 18-100 Discontinued 06/07/2023, 06/07/2023, 08/29/2019, Additional history exists GARDASIL-HPV IMMUNIZATION SERIES Aged Out No longer eligible based on patient's age to complete this topic Hepatitis B Aged Out No longer eligi ble based on patient's age to complete this topic MENINGOCOCCAL (MENACTRA/MENVEO) Aged Out No longer eligible based on patient's age to complete this topic documented as of this encounter Medical Devices Not on filedocumented as of this encounter Visit Diagnoses Diagnosis Erosive osteoarthritis of both hands Gout of left wrist, unspecified cause, unspecified chronicity documented in this encounter Advance Directives Latest Code Status on File Code Status Date Activated Date Inactivated Comments Full Code 07/04/2018 11:03 AM 07/04/2018 5:07 PM This order reflects the patients wishes and were consensually agreed upon. Care Teams Professor Of Apologetics Relationship Specialty Start Date End Date Sumit Villa DO [address] [place] [address] PCP - General Family Medicine 02/16/23 documented as of this encounter
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
--- OUTSIDE RECORDS SUMMARY | 2023-10-27 07:04 | External Medical Summary | Summary of Care ---
Author Name Unknown Organization [facility] Address [address] [facility] [place] [address] Phone [phone] Care Team Providers Care Manager Winter Name Role Phone Sumit Villa Primary Care Provider Reason for Visit * Reason Comments eRx-Medication Refill Encounter Details Date Type Department Care Team Description [address] [facility] [address] [place] [address] Elif Falcon MD [address] [place] [address] Old myocardial infarct Allergies Active Allergy Reactions Severity Noted Date Comments Iodinated Contrast Media Itching 08/18/2011 Sitagliptin Phosphate Other (Please comment) 03/07/2013 pancreatitis Niacin High 06/14/2019 Other reaction(s): HOT/BURNING FEELING documented as of this encounter (statuses as of 07/24/2023) Medications Medication Sig Dispensed Refills Start Date [...] mouth as needed for Constipation. 0 Active Furosemide 20 MG Oral Tablet (Lasix)Indications [...] mg Oral QPM-1999, Reported on 06/02/2023 PEG 2705-BWx-LlXiv-NaC l-NaSulf 236 GM Oral Solution Reconstituted Please take according to Colonoscopy prep instructions. 4000 mL 0 01/22/20 Active NovoLOG FlexPen 100 UNIT/ML Subcutaneous Solution Pen-injector INJECT 8-12 UNITS PRIOR TO EACH MEAL -EXTRA IF NEEDED BASED ON BLOOD SUGAR 30 mL 1 02/07/20 Active Nystatin 677356 UNIT/GM External Cream Apply topically to affected area 2 times a day. Apply to vulva 2 times a day 45 g 1 04/11/20 Active Additional Information Patient taking differently:TopicalPRN, Apply to vulva 2 times a day, Reported on 04/20/2023 Estradiol 0.1 MG/GM Vaginal Cream (Estrace) To vulva daily for 4 weeks and then 2 times a week 42.5 g 04/22/20 23 Active Omeprazole 40 MG Oral Capsule Delayed Release (PriLOSEC) TAKE 1 CAPSULE BY MOUTH EVERY DAY 1 HOUR BEFORE THE FIRST MEAL OF THE DAY 90 Capsule 3 04/18/20 23 Active Citalopram Hydrobromide 20 MG Oral Tablet (CeleXA) Take 1/2 tablet by mouth daily for 4 weeks then take 1 tablet by mouth daily. 30 Tablet 04/25/20 23 Active Prasugrel HCl 10 MG Oral Tablet (Effient) TAKE 1 TABLET BY MOUTH EVERY MORNING 90 Tablet 04/30/20 23 Active Gabapentin 300 MG Oral [...] EVENING 90 Tablet 1 07/24/20 23 Active Metoprolol Succinate ER 100 MG Oral Tablet Extended Release 24 Hour (toPROL XL)Indications:Old myocardial infarct TAKE 1 TABLET BY MOUTH EVERY EVENING 90 Tablet 3 08/02/20 22 023 Discontinued amLODIPine Besylate 5 MG Oral Tablet (Norvasc) TAKE 1 TABLET BY MOUTH EVERY DAY 90 Tablet 3 08/02/20 22 023 Discontinued documented as of this encounter (statuses as of 07/24/2023) Active Problems Problem Noted Date Moderate aortic valve stenosis 1 VINCE (obstructive sleep apnea) 08/20/2021 Chronic kidney disease, stage 3b 021 Overview: Per CKD protocol Coronary artery disease invo lving [place] coronary artery of [place] heart without angina pectoris 02/13/2019 Chronic systolic heart failure 9 Type 2 diabetes mellitus with hemoglobin A1c goal of less than 8.0% 02/02/2019 HTN, goal below 130/80 12/15/2015 Overview: Per HTN Protocol #27. Old [place] (myocardial infarction) 5 Dyslipidemia 11/15/2012 Peripheral vascular disease 07/30/2009 S/P angioplasty with stent 08/09/2007 Bicuspid aortic valve Generalized osteoarthritis Fibromyalgia documented as of this encounter (statuses as of 07/24/2023) Resolved Problems Problem Noted Date Resolved Date [...] program 02/05/2019 05/12/2020 Overview: DO NOT DELETE [facility] DETECT Study: Project # [id number], Bookkeeping Service Sales Agent: Jona Mckeon, PhD. SUMMARY: Goal: Establish test [...] contact study staff at ; after hours Bookkeeping Service Sales Agent via the [facility] molybdenum steamer operator . Please contact study team before resolving/deleting from patients problem list. Study phone number: [phone]. Diagnosis changed due to Research Module. Go to Snapshot for study details. Encounter for examination fo r normal comparison and control in clinical research program 02/05/2019 06/10/2022 Overview: DO NOT DELETE - [facility] [place] Study: Project # [id number], Bookkeeping Service Sales Agent: Vipin Carvalho, MS, MPH. SUMMARY: Goal: Establish [...] contact study staff at ; after hours Bookkeeping Service Sales Agent via the [facility] molybdenum steamer operator . - Please contact study team before resolving/deleting from patients problem list. Study phone number: [phone]. Diagnosis changed due to Research Module. Go to [employer] for study details. Type 2 diabetes mellitus wit h stage 3 chronic kidney disease, with long-term current use of insulin 02/02/2019 021 Overview: Per CKD protocol Hypertensive kidney disease with chronic kidney disease stage III 02/02/2019 03/20/2019 ADVANCE DIRECTIVE INFORMATION 01/03/2019 03 / Overview: Information given at previous visit Depression 06/21/2018 12/30/2021 Hiatal hernia 06/21/2018 12/30/2021 History of [place] (myocardial infarction) 05/09/2018 12/30/2021 Vulvar lesion 05/09/2018 [...] 08/01/2008 Overview: Study Titile: Event Registry Project #[id number] PI: Rachna Manley MD Please call [phone] with study related questions [employer] Other*[id number] 200611/16/2016 Overview: Study Title: Genomic Markers for Patients with Cardiovascular Disease Project # [id number] Bookkeeping Service Sales Agent: Rachna Manley MD [phone] Type 2 diabetes mellitus wit h hemoglobin A1c goal of less than 7.0% 11/15/2005 08/07/2009 Overview: Per Diabetes Taxonomy. ICD-10 update of inactive term Spondylolisthesis 05/11/2004 12/30/2021 HTN, goal below 140/90 12/08/2000 0 Overview: Per HTN Taxonomy. S/P total knee replacement, left 04/05/2023 Erosive osteoarthritis of both hands 04/05/2023 documented as of this encounter (statuses as of 07/24/2023) Immunizations Name Administration Dates Next Due COVID-19 mRNA, LNP-s, No Pre serve, 2-Dose Series ([employer]) 10/06/2021,01/05/2021,12/09/2020 COVID-19, LNP-s, No Preserve , Angus-sucrose, [...] encounter Miscellaneous Notes * Telephone Encounter - Adelaida Arriaza RPh - 07/24/2023 10:46 AM EDTSigned Prescriptions: Disp Refills amLODIPine Besylate 5 MG Oral Tablet (Norv*90 Tab*1 Sig: TAKE 1 TABLET BY MOUTH EVERY DAYAuthorizing Provider: SUMIT VILLA User: ADELAIDA ARRIAZA Metoprolol Succinate ER 100 MG Oral Tablet*90 Tab*1 Sig: TAKE 1 TABLET BY MOUTH EVERY EVENINGAuthorizing Provider: SUMIT VILLA User: ADELAIDA ARRIAZA documented in this encounter Plan of Treatment Upcoming Encounters Date Type Specialty Care Team Description 08/01/2023 Therapy Psychology Beni Mares, PhD [address] [place] [address] 09/06/2023 Office Visit Family Medicine Sumit Villa DO [address] [facility] [place] [address] 09/16/2023 Office Visit Pharmacy [facility] [address] [place] [address] 09/23/2023 Nurse Only Ancillary Alejo, Nurse Annual [facility] [place] [address] [place] [address] 11/18/2023 Office Visit Cardiology Chema Hayden MD [address] [place] [address] 02/23/2024 Office Visit Rheumatology Beni Fernandez MD [address] [facility] [place] [address] Scheduled Procedures Name Priority Associated Diagnoses Date/Ti me COLONOSCOPY FLEXIBLE PROXIMA L DIAGNOSTIC Recall History of colonic polyps Health Maintenance Due Date Last Done Comments Diabetic Foot Exam 06/03/2022 06/03/2021, 0 03/25/2020, 04/03/2019, Additional history exists COVID-19 Vaccine ( season) 2023 07/13/2022, 03/10/2022, 10/06/2021, Additional history exists DIABETES-EYE EXAM 08/19/2023 08/19/2022, , 11/27/2019, Additional history exists CKD HGB USE SMARTSET 46056 09/09/202309/09, 09/09/2022, 06/04/2022, Additional history exists Depression Screening 09/22/2023 09/22/2022 GFR 10/21/2023 04/20/2023, 05/11, 11/17/2021, Additional history exists HbA1c 10/21/2023 04/20/2023, 05/11, 12/07/2021, Additional history exists Mammogram 04/08/2024 04/08/2023, 03/11, 01/29/2021, Additional history exists Albumin/Creatinine Ratio 04/20/2024 023, 03/25/2022, 10/30/2020, Additional history exists CKD PHOS USE SMARTSET 97544 04/20/202404/09, 11/17/2021, 03/26/2020, Additional history exists COLONOSCOPY-EVERY 3 YRS AGES 18-100 06/07/2026 06/07/2023, 06/07/2023, 08/29/2019, Additional history exists DXA Scan 11/09/2028 11/09/2021, 12/27/2016 DTaP,Tdap,and Td Vaccines (3 - Td or Tdap) 09/13/2029 09/13/2019, 07/30/2009, 01/09/1996, Additional history exists Pneumococcal Vaccine: 65+ Years Completed 05/09/2018, 11/25/2016, 07/18/2006 Zoster Vaccines Completed 06/25/2020, 03/10, 07/07/2015 LUNG CANCER SCREENING - USE SMARTSET 25877 Completed 02/15/2023, 04/06/2022, 05/09/2020, Additional history exists [...] as of this encounter Visit Diagnoses Diagnosis Old myocardial infarct Old myocardial infarction documented in this encounter Advance Directives Latest Code Status on File Code Status Date Activated Date Inactivated Comments Full Code 07/04/2018 11:03 AM 07/04/2018 5:07 PM This order reflects the patients wishes and were consensually agreed upon. Care Teams Manager Winter Relationship Specialty Start Date End Date Sumit Villa DO [address] [place] [address] PCP - General Family Medicine 02/16/23 documented as of this encounter
--- OUTSIDE RECORDS SUMMARY | 2023-10-27 07:04 | External Medical Summary | Summary of Care ---
Author Name Unknown Organization [facility] Address [address] [facility] [place] [address] Phone [phone] Care Team Providers Care Making Department Preparer Name Role Phone Bartolome Villa Primary Care Provider Reason for Visit * Reason Comments Anxiety Encounter Details Date Type Department Care Team Description 07/15/2023 Therapy Psychology, [facility] [address] [place] [address] Beni Mares, PhD [address] [place] [address] Adjustment disorder with depressed mood* Allergies Active Allergy Reactions Severity Noted Date Comments Iodinated Contrast Media Itching 08/18/2011 Sitagliptin Phosphate Other (Please comment) 03/07/2013 pancreatitis Niacin High 06/14/2019 Other reaction(s): HOT/BURNING FEELING documented as of this encounter (statuses as of 07/15/2023) Medications Medication Sig Dispensed Refills Start Date [...] 100 g 11 05/09/2018 Active Glucose Blood (StribeUCH ULTRA BLUE) STRPIndications:Typ e 2 diabetes mellitus with hemoglobin A1c goal of less than 7.0% ([facility]) TEST FOUR TIMES DAILY AND UP TO [...] (Lasix)Indications: Heart failure, systolic, due to CAD Take 40 [...] mg Oral QPM-1999, Reported on 06/02/2023 PEG 7121-WRp-HlSgs-NaCl -NaSulf 236 GM Oral Solution Reconstituted Please take according to Colonoscopy prep instructions. 4000 mL 0 01/21/2023 Active NovoLOG FlexPen 100 UNIT/ML Subcutaneous Solution Pen-injector INJECT 8-12 UNITS PRIOR TO EACH MEAL -EXTRA IF NEEDED BASED ON BLOOD SUGAR 30 mL 1 02/06/2023 Active Nystatin 555143 UNIT/GM External Cream Apply topically to affected [...] Oral Tablet Extended Release 24 Hour (Ultram ER)Indications:[place] leonor osteoarthritis of both hands Take 1 Tablet by mouth in the morning and 1 Tablet before bedtime. 60 Tablet 0 06/20/2023 Active oxyCODONE HCl 5 MG Oral Tablet (Oxy IR) Take 1 Tablet by mouth every 8 hours as needed for Pain, Severe. 20 Tablet 0 06/20/2023 Active predniSONE 5 MG Oral Tablet (Deltasone)Indicati ons:Erosive osteoarthritis of both hands,Gout of left wrist, unspecified cause, unspecified chronicity TAKE 1 TABLET BY MOUTH EVERY DAY DIRECTED 90 Tablet 3 07/14/2023 Active documented as of this encounter (statuses as of 07/15/2023) Active Problems Problem Noted Date Moderate aortic valve stenosis VINCE (obstructive sleep apnea) 08/20/2021 Chronic kidney disease, stage 3b 021 Overview: Per CKD protocol Coronary artery disease invo lving [place] coronary artery of [place] heart without angina pectoris 02/13/2019 Chronic systolic heart failure 9 Type 2 diabetes mellitus with hemoglobin A1c goal of less than 8.0% 02/02/2019 HTN, goal below 130/80 12/15/2015 Overview: Per HTN Protocol #27. Old LA (myocardial infarction) 5 Dyslipidemia 11/15/2012 Peripheral vascular disease 07/30/2009 S/P angioplasty with stent 08/09/2007 Bicuspid aortic valve Generalized osteoarthritis Fibromyalgia documented as of this encounter (statuses as of 07/15/2023) Resolved Problems Problem Noted Date Resolved Date [...] program 02/05/2019 05/12/2020 Overview: DO NOT DELETE [facility] DETECT Study: Project # [id number], Orchid Hand: Jona Mckeon, PhD. SUMMARY: Goal: Establish test [...] contact study staff at ; after hours Orchid Hand via the [facility] voltmeter operator . Please contact study team before resolving/deleting from patients problem list. Study phone number: [phone]. Diagnosis changed due to Research Module. Go to Snapshot for study details. Encounter for examination fo r normal comparison and control in clinical research program 02/05/2019 06/10/2022 Overview: DO NOT DELETE - [facility] DETECT Study: Project # [id number], Orchid Hand: Vipin Carvalho, MS, MPH. SUMMARY: Goal: Establish [...] contact study staff at ; after hours Orchid Hand via the [facility] voltmeter operator . - Please contact study team before resolving/deleting from patients problem list. Study phone number: [phone]. Diagnosis changed due to Research Module. Go to [employer] for study details. Type 2 diabetes mellitus wit h stage 3 chronic kidney disease, with long-term current use of insulin 02/02/2019 021 Overview: Per CKD protocol Hypertensive kidney disease with chronic kidney disease stage III 02/02/2019 03/20/2019 ADVANCE DIRECTIVE INFORMATION 01/03/2019 Overview: Information given at previous visit Depression 06/21/2018 12/30/2021 Hiatal hernia 06/21/2018 12/30/2021 History of LA (myocardial infarction) 05/09/2018 12/30/2021 Vulvar lesion 05/09/2018 12/30/[address] scan, chest 09/14/2017 03/23/20 22 History of smoking 30 or more [...] 08/01/2008 Overview: Study Titile: Event Registry Project #[id number] PI: Rachna Manley MD Please call [phone] with study related questions [employer] Other*[id number] 200611/16/2016 Overview: Study Title: Genomic Markers for Patients with Cardiovascular Disease Project # [id number] Orchid Hand: Rachna Manley MD [phone] Type 2 diabetes mellitus wit h hemoglobin A1c goal of less than 7.0% 11/15/2005 08/07/2009 Overview: Per Diabetes Taxonomy. ICD-10 update of inactive term Spondylolisthesis 05/11/2004 12/30/2021 HTN, goal below 140/90 12/08/2000 0 Overview: Per HTN Taxonomy. S/P total knee replacement, left 04/05/2023 Erosive osteoarthritis of both hands 04/05/2023 documented as of this encounter (statuses as of 07/15/2023) Immunizations Name Administration Dates Next Due COVID-19 mRNA, LNP-s, No Pre serve, 2-Dose Series ([employer]) 10/06/2021,01/05/2021,12/09/2020 COVID-19, LNP-s, No Preserve , Angus-sucrose, Ages 12+ (Pfizer) 03/10/2022 Covid-19, Mrna, Lnp-s, Pf, B ivalent, 30 Mcg, IM, 12 yrs and above ([employer]) 07/13/2022 Pneumococcal Conjugate Vacc, 13 Valent (Prevnar) [...] Progress Notes * Beni Mares, PhD - 07/15/2023 10:00 AM EDT Patient location: CLINIC. I was in the same facility as the patient. After connecting through [employer], patient was verified with two unique identifiers. Patient (or authorized legal commissary representative)was then informed that this was a [...] that I have reviewed their record in [facility] and presented the opportunity for them to ask any questions regarding the visit today. The patient agreed to participate. Provider reviewed elements of Outpatient Services Description including limits of confidentiality, how to contact the department, risks and benefits of treatment and consent for treatment. Start Time: 1000 Stop Time: 1051 Total direct [id number] time: 51 minutes BEHAVIORAL MEDICINE PROGRESS [place] [address] [place] [address] 07/15/2023 1000 TYPE OF VISIT: Individual DIAGNOSIS: Adjustment Disorder with Depressed Mood REASON FOR FOLLOW-UP: Individual therapy Session #: 4 SESSION FOCUS: relationship with her son NOTES: Began the session by administering and reviewing the FINN 7 and PHQ 9. Pt denied SI/HI. Pt reported that her son has told her that he will be moving out in the next couple of months. He is now 37 and feels that it is time for him to go off on his own. At times in his life, he has accused her of ruining his life -- he says that she should have kicked him out when he was 19, but he has had so many difficulties over the years that it would have been heartless to do so. She is able to take his accusations with a grain of salt -- she is confident that she did the best she could have with him and his difficulties in his life are more a result of his actions than hers. She stated that she has had acouple of nightmares over the past couple of weeks that have included her ex . She hasn't dreamed about him in a very long time and has concluded that he is in her dreams again because she hasbeen speaking about him in session. PROGRESS TOWARDS GOALS: Goal: Improved self-management of [...] = 0 (if anything but 0 administer [place]ura); 07/01/23: 0 Generalized Anxiety Disorder (FINN-7): 4 [...] regulation/self-soothing skills present: yes -has cultural or lutheran beliefs that discourage suicide: yes Risk Level Impression: -Low risk: Initiate outpatient therapy; safety plan may still be indicated; provided crisis numbers Crisis Plan: PLAN INCLUDED IN TREATMENT PLAN FOLLOW-UP PLAN: Return: 2 weeks Action Plan: 1. Continue Cognitive Behavioral Therapy Treatment plan reviewed with the patient. Patient voices understanding and concurs with plan. Beni Mares, PhD Division of Psychiatry & Behavioral Medicine [facility] [phone] documented in this encounter Plan of Treatment Upcoming Encounters Date Type Specialty Care Team Description 08/01/2023 Therapy Psychology Beni Mares, PhD [address] [place] [address] 09/06/2023 Office Visit Family Medicine Bartolome Villa DO [address] [place] [address] 09/16/2023 Office Visit Pharmacy [facility] [place] [address] [place] [address] 09/23/2023 Nurse Only Ancillary [facility], Nurse Annual Well[facility] [place] [address] [place] [address] 11/18/2023 Office Visit Cardiology Chema Hayden MD [address] [place] [address] 02/23/2024 Office Visit Rheumatology Beni Fernandez MD [address] [facility] [place], [place] [address] Scheduled Procedures Name Priority Associated Diagnoses Date/Ti [...] Additional history exists CKD HGB USE SMARTSET 61340 09/09/202309/09, 09/09/2022, 06/04/2022, Additional history exists Depression Screening 09/22/2023 09/22/2022 GFR 10/21/2023 04/20/2023, 05/11, 11/17/2021, Additional history exists HbA1c 10/21/2023 04/20/2023, 05/11, 12/07/2021, Additional history exists Mammogram 04/08/2024 04/08/2023, 03/11, 01/29/2021, Additional history exists Albumin/Creatinine Ratio 04/20/2024 023, 03/25/2022, 10/30/2020, Additional history exists CKD PHOS USE SMARTSET 60355 04/20/202404/09, 11/17/2021, 03/26/2020, Additional history exists COLONOSCOPY-EVERY 3 YRS AGES 18-100 06/07/2026 06/07/2023, 06/07/2023, 08/29/2019, Additional history exists DXA Scan 11/09/2028 11/09/2021, 12/27/2016 DTaP,Tdap,and Td Vaccines (3 - Td or Tdap) 09/13/2029 09/13/2019, 07/30/2009, 01/09/1996, Additional history exists Pneumococcal Vaccine: 65+ Years Completed 05/09/2018, 11/25/2016, 07/18/2006 Zoster Vaccines Completed 06/25/2020, 03/10, 07/07/2015 LUNG CANCER SCREENING - USE SMARTSET 01022 Completed 02/15/2023, 04/06/2022, 05/09/2020, Additional history exists [...] and were consensually agreed upon. Care Teams Making Department Preparer Relationship Specialty Start Date End Date Bartolome Villa DO [address] [place] [address] PCP - General Family Medicine 02/16/23 documented as of this encounter
--- OUTSIDE RECORDS SUMMARY | 2023-10-27 07:04 | External Medical Summary | Summary of Care ---
Author Name Unknown Organization [facility] Address [address] [facility] [place] [address] Phone [phone] Care Team Providers Care Deckhand Tuna [employer] Name Role Phone Sumit Villa DO Primary Care Provider Reason for Visit * Reason Onset Date Comments Medication Refill 07/25/2023 Encounter Details Date Type Department Care Team Description 07/25/2023 Refill Pharmacy, [facility] [address] [place] [address] Sumit Villa DO [address] [place] [address] Allergies Active Allergy Reactions Severity Noted Date Comments Iodinated Contrast Media Itching 08/18/2011 Sitagliptin Phosphate Other (Please comment) 03/07/2013 pancreatitis Niacin High 06/14/2019 Other reaction(s): HOT/BURNING FEELING documented as of this encounter (statuses as of 07/25/2023) Medications Medication Sig Dispensed Refills Start Date [...] 0 Active Furosemide 20 MG Oral Tablet (Lasix)Indications: Heart failure, systolic, due to CAD Take 40 mg by mouth on Mondays, Wednesdays, and Fridays. Take 20 mg by mouth all other days of the week. 135 Tablet 3 2 Active Famotidine 20 MG Oral Tablet (Pepcid)Indications [...] mg Oral QPM-1999, Reported on 06/02/2023 PEG 7930-UZq-CzUzf-NaCl -NaSulf 236 GM Oral Solution Reconstituted Please take according to Colonoscopy prep instructions. 4000 mL 0 3 Active NovoLOG FlexPen 100 UNIT/ML Subcutaneous Solution Pen-injector INJECT 8-12 UNITS PRIOR TO EACH MEAL -EXTRA IF NEEDED BASED ON BLOOD SUGAR 30 mL 1 3 Active Nystatin 763809 UNIT/GM External Cream Apply topically to affected [...] Oral Tablet Extended Release 24 Hour (Ultram ER)Indications:[place] leonor osteoarthritis of both hands Take 1 Tablet by mouth in the morning and 1 Tablet before bedtime. 60 Tablet 0 3 Active predniSONE 5 MG Oral Tablet (Deltasone)Indicati [...] EVERY EVENING 90 Tablet 1 3 Active oxyCODONE HCl 5 MG Oral Tablet (Oxy IR) Take 1 Tablet by mouth every 8 hours as needed for Pain, Severe. 20 Tablet 0 3 Active oxyCODONE HCl 5 MG Oral Tablet (Oxy IR) Take 1 Tablet by mouth every 8 hours as needed for Pain, Severe. 20 Tablet 0 3 07/25/20 23 Discontinu ed(Refill) documented as of this encounter (statuses as of 07/25/2023) Active Problems Problem Noted Date Moderate aortic valve stenosis 1 VINCE (obstructive sleep apnea) 08/20/2021 Chronic kidney disease, stage 3b 021 Overview: Per CKD protocol Coronary artery disease invo lving [place] coronary artery of [place] heart without angina pectoris 02/13/2019 Chronic systolic heart failure 9 Type 2 diabetes mellitus with hemoglobin A1c goal of less than 8.0% 02/02/2019 HTN, goal below 130/80 12/15/2015 Overview: Per HTN Protocol #27. Old [place] (myocardial infarction) 5 Dyslipidemia 11/15/2012 Peripheral vascular disease 07/30/2009 S/P angioplasty with stent 08/09/2007 Bicuspid aortic valve Generalized osteoarthritis Fibromyalgia documented as of this encounter (statuses as of 07/25/2023) Resolved Problems Problem Noted Date Resolved Date [...] 02/05/2019 05/12/2020 Overview: DO NOT DELETE [facility] DETECT Study: Project # [id number], L D Rn: oJna Mckeon, PhD. SUMMARY: Goal: Establish test characteristics [...] contact study staff at ; after hours L D Rn via the [facility] wet crown blocking operator . Please contact study team before resolving/deleting from patients problem list. Study phone number: [phone]. Diagnosis changed due to Research Module. Go to Snapshot for study details. Encounter for examination fo r normal comparison and control in clinical research program 02/05/2019 06/10/2022 Overview: DO NOT DELETE - [facility] Study: Project # [id number], L D Rn: Vipin Carvalho, MS, MPH. SUMMARY: Goal: Establish [...] contact study staff at ; after hours L D Rn via the [facility] hospital wet crown blocking operator . - Please contact study team before resolving/deleting from patients problem list. Study phone number: [phone]. Diagnosis changed due to Research Module. Go [...] 12/30/2021 Hiatal hernia 06/21/2018 12/30/2021 History of DC (myocardial infarction) 05/09/2018 12/30/2021 Vulvar lesion 05/09/2018 [...] 08/01/2008 Overview: Study Titile: Event Registry Project #[id number] PI: Rachna Manley MD Please call [phone] with study related questions [employer] Other*[id number] 200611/16/2016 Overview: Study Title: Genomic Markers for Patients with Cardiovascular Disease Project # [id number] L D Rn: Rachna Manley MD [phone] Type 2 diabetes mellitus wit h hemoglobin A1c goal of less than 7.0% 11/15/2005 08/07/2009 Overview: Per Diabetes Taxonomy. ICD-10 update of inactive term Spondylolisthesis 05/11/2004 12/30/2021 HTN, goal below 140/90 12/08/2000 0 Overview: Per HTN Taxonomy. S/P total knee replacement, left 04/05/2023 Erosive osteoarthritis of both hands 04/05/2023 documented as of this encounter (statuses as of 07/25/2023) Immunizations Name Administration Dates Next Due COVID-19 mRNA, LNP-s, No Pre serve, 2-Dose Series ([employer]) 10/06/2021,01/05/2021,12/09/2020 COVID-19, LNP-s, No Preserve , Angus-sucrose, Ages 12+ (Pfizer) 03/10/2022 Covid-19, Mrna, Lnp-s, Pf, B ivalent, 30 Mcg, IM, 12 yrs and above ([employer]) 07/13/2022 Pneumococcal Conjugate Vacc, 13 Valent (Prevnar) [...] Telephone Encounter - Sumit Villa DO - 07/25/2023 11:12 AM EDT Signed Prescriptions: Disp Refills oxyCODONE HCl 5 MG Oral Tablet (Oxy IR) 20 Tab*0 Sig: Take 1 Tablet by mouth every 8 hours as needed for Pain, Severe. Authorizing Provider: SUMIT VILLA * Telephone Encounter - Tosha Liu [facility] - 07/25/2023 9:39 AM EDT Pending Prescriptions: Disp Refills oxyCODONE HCl 5 MG Oral Tablet (Oxy IR) 20 Tab*0 Sig: Take 1 Tablet by mouth every 8 hours as needed for Pain, Severe. documented in this encounter Plan of Treatment Upcoming Encounters Date Type Specialty Care Team Description 08/01/2023 Therapy Psychology Beni Mares, PhD [address] [facility] [place], [place] [address] 09/06/2023 Office Visit Family Medicine Sumit Villa DO [address] [place] [address] 09/16/2023 Office Visit Pharmacy [facility] [place] [address] [place] [address] 09/23/[address] [facility] [place] [address] [place] [address] 11/18/2023 Office Visit Cardiology Chema Hayden MD [address] [place] [address] 02/23/2024 Office Visit Rheumatology Beni Fernandez MD [facility], [place] [address] Scheduled Procedures Name Priority Associated Diagnoses Date/Ti me COLONOSCOPY FLEXIBLE PROXIMA L DIAGNOSTIC Recall History of colonic polyps Health Maintenance Due Date Last Done Comments Diabetic Foot Exam 06/03/2022 06/03/2021, 0 03/25/2020, 04/03/2019, Additional history exists COVID-19 Vaccine ( season) 2023 07/13/2022, 03/10/2022, 10/06/2021, Additional history exists DIABETES-EYE EXAM 08/19/2023 08/19/2022, , 11/27/2019, Additional history exists CKD HGB USE SMARTSET 84861 09/09/202309/09, 09/09/2022, 06/04/2022, Additional history exists Depression Screening 09/22/2023 09/22/2022 GFR 10/21/2023 04/20/2023, 05/11, 11/17/2021, Additional history exists HbA1c 10/21/2023 04/20/2023, 05/11, 12/07/2021, Additional history exists Mammogram 04/08/2024 04/08/2023, 03/11, 01/29/2021, Additional history exists Albumin/Creatinine Ratio 04/20/2024 023, 03/25/2022, 10/30/2020, Additional history exists CKD PHOS USE SMARTSET 20808 04/20/202404/09, 11/17/2021, 03/26/2020, Additional history exists COLONOSCOPY-EVERY 3 YRS AGES 18-100 06/07/2026 06/07/2023, 06/07/2023, 08/29/2019, Additional history exists DXA Scan 11/09/2028 11/09/2021, 12/27/2016 DTaP,Tdap,and Td Vaccines (3 - Td or Tdap) 09/13/2029 09/13/2019, 07/30/2009, 01/09/1996, Additional history exists Pneumococcal Vaccine: 65+ Years Completed 05/09/2018, 11/25/2016, 07/18/2006 Zoster Vaccines Completed 06/25/2020, 03/10, 07/07/2015 LUNG CANCER SCREENING - USE SMARTSET 08548 Completed 02/15/2023, 04/06/2022, 05/09/2020, Additional history exists [...] and were consensually agreed upon. Care Teams Deckhand [employer]una [employer] Relationship Specialty Start Date End Date Sumit Villa DO [address] [place] [address] PCP - General Family Medicine 02/16/23 documented as of this encounter
--- OUTSIDE RECORDS SUMMARY | 2023-10-27 07:04 | External Medical Summary | Summary of Care ---
Author Name Unknown Organization [facility] Address [address] [facility] [place] [address] Phone [phone] Care Team Providers Care Legal Transcriber Name Role Phone Sumit Villa DO Primary Care Provider Reason for Visit * Reason Onset Date Comments Medication Refill 07/29/2023 Encounter Details Date Type Department Care Team (Late st Contact Info) Description 07/29/2023 Refill Pharmacy[facility] [address] [place] [address] Sumit Villa DO [address] [place] [address] Erosive osteoarthritis of both hands Allergies Active Allergy Reactions Criticality Noted Date Comments Iodinated Contrast Media Itching 08/18/2011 Sitagliptin Phosphate Other (Please comment) 03/07/2013 pancreatitis Niacin High 06/14/2019 Other reaction(s): HOT/BURNING FEELING documented as of this encounter (statuses as of 08/01/2023) Medications Medication Sig Dispensed Refills Start Date [...] mg Oral QPM-1999, Reported on 06/02/2023 PEG 2883-LYx-DbVdz-NaCl -NaSulf 236 GM Oral Solution Reconstituted Please take according to Colonoscopy prep instructions. 4000 mL 0 3 Active NovoLOG FlexPen 100 UNIT/ML Subcutaneous Solution Pen-injector INJECT 8-12 UNITS PRIOR TO EACH MEAL -EXTRA IF NEEDED BASED ON BLOOD SUGAR 30 mL 1 3 Active Nystatin 859261 UNIT/GM External Cream Apply topically to affected [...] Pain, Severe. 20 Tablet 0 3 Active Furosemide 20 MG Oral Tablet (Lasix)Indications: Heart failure, systolic, due to CAD TAKE 2 TABLETS BY MOUTH ON MONDAYS, WEDNESDAYS, AND FRIDAYS. TAKE 1 TABLET BY MOUTH ON ALL OTHER DAYS OF THE WEEK. 135 Tablet 3 3 Active traMADol HCl ER 100 MG Oral Tablet Extended Release 24 Hour (Ultram ER)Indications:[place] leonor osteoarthritis of both hands Take 1 Tablet by mouth in the morning and 1 Tablet before bedtime. 60 Tablet 0 3 Active traMADol HCl ER 100 MG Oral Tablet Extended Release 24 Hour (Ultram ER)Indications:[place] leonor osteoarthritis of both hands Take 1 Tablet by mouth in the morning and 1 Tablet before bedtime. 60 Tablet 0 3 07/29/20 23 Discontinu ed(Refill) documented as of this encounter (statuses as of 08/01/2023) Active Problems Problem Noted Date Diagnosed Date Moderate aortic valve stenosis 09/02/2021 VINCE (obstructive sleep apnea) 08/20/2021 Chronic kidney disease, stage 3b 03/24/2021 Overview: Per CKD protocol Coronary artery disease invo lving [place] coronary artery of [place] heart without angina pectoris 02/13/2019 Chronic systolic [...] as of this encounter (statuses as of 08/01/2023) Resolved Problems Problem Noted Date Diagnosed Date [...] The Chronically Ill DETECT Study: Project # [id number], Slaughterer Religious Ritual: Jona Mckeon, PhD. SUMMARY: Goal: Establish test [...] contact study staff at ; after hours Slaughterer Religious Ritual via the [facility] oxygraph operator . Please contact study team before resolving/deleting from patients problem list. Study phone number: [phone]. Diagnosis changed due to Research Module. Go to Snapshot for study details. Encounter for examination fo r normal comparison and control in clinical research program 02/05/2019 06/10/2022 Overview: DO NOT DELETE - [facility] Study: Project # [id number], Slaughterer Religious Ritual: Vipin Carvalho, MS, MPH. SUMMARY: Goal: Establish [...] contact study staff at ; after hours Slaughterer Religious Ritual via the [facility] hospital oxygraph operator . - Please contact study team before resolving/deleting from patients problem list. Study phone number: [phone]. Diagnosis changed due to Research Module. Go to [email or web address] for study details. Type 2 diabetes mellitus [...] 08/01/2008 Overview: Study Titile: Event Registry Project #[id number] PI: Rachna Manley MD Please call [phone] with study related questions [employer] Other*[id number] 06/29/2007 11/16/2016 Overview: Study Title: Genomic Markers for Patients with Cardiovascular Disease Project # [id number] Slaughterer Religious Ritual: Rachna Manley MD [phone] Type 2 diabetes mellitus wit h hemoglobin A1c goal of less than 7.0% 11/15/2005 08/07/2009 Overview: Per Diabetes Taxonomy. ICD-10 update of inactive term Spondylolisthesis 05/11/2004 12/30/2021 HTN, goal below 140/90 12/08/200011/06 Overview: Per HTN Taxonomy. S/P total knee replacement, left 04/05/2023 Erosive osteoarthritis of both hands 04/05/2023 documented as of this encounter (statuses as of 08/01/2023) Immunizations Name Administration Dates Next Due COVID-19 mRNA, LNP-s, No Pre serve, 2-Dose Series (Barcoding) 10/06/2021,01/05/2021,12/09/2020 COVID-19, LNP-s, No Preserve , Angus-sucrose, [...] Telephone Encounter - Sumit Villa DO - 08/01/2023 7:46 AM EDTSigned Prescriptions: Disp Refills traMADol HCl ER 100 MG Oral Tablet Extende*60 Tab*0 Sig: Take 1 Tablet by mouth in the morning and 1 Tablet before bedtime. Authorizing Provider: SUMIT VILLA * Telephone Encounter - Tosha Liu [facility] - 07/29/2023 11:42 AM EDT Pending Prescriptions: Disp Refills traMADol HCl ER 100 MG Oral Tablet Extende*60 Tab*0 Sig: Take 1Tablet by mouth in the morning and 1 Tablet before bedtime. documented in this encounter Plan of Treatment Upcoming Encounters Date Type Department Care Team (Late st Contact Info) Description 08/01/2023 10:00 AM EDT Therapy Psychology, [facility] [address] [place] [address] Beni Mares, PhD [address] [place] [address] 09/06/2023 11:00 AM EST [facility] [address] [facility] [place] [address] Sumit Villa DO [address] [place] [address] 09/16/2023 10:30 AM EST Office Visit [facility] [address] [facility] [place] [address] [facility] [address] [facility] [place] [address] 09/23/2023 10:00 AM EST Nurse Only [facility] [address] [facility] [place] [address] [place] Nurse Annual Wellness [facility] [address] [facility] [place] [address] 11/18/2023 11:30 AM EST Office Visit Cardiology, [facility] [address] [place] [address] Chema Hayden MD [address] [place] [address] 02/23/2024 10:00 AM EDT Office Visit Rheumatology [place] [phone] [place] [address] Beni Fernandez MD [address] [place] [address] Scheduled Procedures Name Priority Associated Diagnoses Date/Ti [...] Additional history exists CKD HGB USE SMARTSET 90742 09/09/202309/09, 09/09/2022, 06/04/2022, Additional history exists Depression Screening 09/22/2023 09/22/2022 GFR 10/21/2023 04/20/2023, 05/11, 11/17/2021, Additional history exists HbA1c 10/21/2023 04/20/2023, 05/11, 12/07/2021, Additional history exists Mammogram 04/08/2024 04/08/2023, 03/11, 01/29/2021, Additional history exists Albumin/Creatinine Ratio 04/20/2024 023, 03/25/2022, 10/30/2020, Additional history exists CKD PHOS USE SMARTSET 52466 04/20/202404/093, 11/17/2021, 03/26/2020, Additional history exists COLONOSCOPY-EVERY 3 YRS AGES 18-100 06/07/2026 06/07/2023, 06/07/2023, 08/29/2019, Additional history exists DXA Scan 11/09/2028 11/09/2021, 12/27/2016 DTaP,Tdap,and Td Vaccines (3 - Td or Tdap) 09/13/2029 09/13/2019, 07/30/2009, 01/09/1996, Additional history exists Pneumococcal Vaccine: 65+ Years Completed 05/09/2018, 11/25/2016, 07/18/2006 Zoster Vaccines Completed 06/25/2020, 03/10, 07/07/2015 LUNG CANCER SCREENING - USE SMARTSET 62679 Completed 02/15/2023, 04/06/2022, 05/09/2020, Additional history exists [...] and were consensually agreed upon. Care Teams Legal Transcriber Relationship Specialty Start Date End Date Sumit Villa DO [address] [place] [address] PCP - General Family Medicine 02/16/23 documented as of this encounter
--- OUTSIDE RECORDS SUMMARY | 2023-10-27 07:04 | External Medical Summary | Summary of Care ---
Author Name Unknown Organization [facility] Address [address] [facility] [place] [address] Phone [phone] Care Team Providers Care Vice President Of Nursing Name Role Phone Bartolome Villa Primary Care Provider Encounter Details Date Type Department Care Team Description 07/18/2023 [facility] [address] [facility] [address] Stephanie Thornton LPN Allergies Active Allergy Reactions Severity Noted Date Comments Iodinated Contrast Media Itching 08/18/2011 Sitagliptin Phosphate Other (Please comment) 03/07/2013 pancreatitis Niacin High 06/14/2019 Other reaction(s): HOT/BURNING FEELING documented as of this encounter (statuses as of 07/18/2023) Medications Medication Sig Dispensed Refills Start Date [...] mg Oral QPM-1999, Reported on 06/02/2023 PEG 2479-CXq-PzUbr-NaCl -NaSulf 236 GM Oral Solution Reconstituted Please take according to Colonoscopy prep instructions. 4000 mL 0 01/21/2023 Active NovoLOG FlexPen 100 UNIT/ML Subcutaneous Solution Pen-injector INJECT 8-12 UNITS PRIOR TO EACH MEAL -EXTRA IF NEEDED BASED ON BLOOD SUGAR 30 mL 1 02/06/2023 Active Nystatin 737841 UNIT/GM External Cream Apply topically to affected [...] Oral Tablet Extended Release 24 Hour (Ultram ER)Indications:[place] leonor osteoarthritis of both hands Take 1 [...] as of this encounter (statuses as of 07/18/2023) Active Problems Problem Noted Date Moderate aortic valve stenosis VINCE (obstructive sleep apnea) 08/20/2021 Chronic kidney disease, stage 3b 021 Overview: Per CKD protocol Coronary artery disease invo lving [place] coronary artery of [place] heart without angina pectoris 02/13/2019 Chronic systolic heart failure 9 Type 2 diabetes mellitus with hemoglobin A1c goal of less than 8.0% 02/02/2019 HTN, goal below 130/80 12/15/2015 Overview: Per HTN Protocol #27. Old MT (myocardial infarction) 5 Dyslipidemia 11/15/2012 Peripheral vascular disease 07/30/2009 S/P angioplasty with stent 08/09/2007 Bicuspid aortic valve Generalized osteoarthritis Fibromyalgia documented as of this encounter (statuses as of 07/18/2023) Resolved Problems Problem Noted Date Resolved Date [...] [facility] Study: Project # [id number], Drama Therapist: Jona Mckeon, PhD. SUMMARY: Goal: Establish test [...] contact study staff at ; after hours Drama Therapist via the [facility] hospital mail machine operator . Please contact study team before resolving/deleting from patients problem list. Study phone number: [phone]. Diagnosis changed due to Research Module. Go to Snapshot for study details. Encounter for examination fo r normal comparison and control in clinical research program 02/05/2019 06/10/2022 Overview: DO NOT DELETE - [facility] Study: Project # [id number], Drama Therapist: Vipin Carvalho, MS, MPH. SUMMARY: Goal: Establish [...] contact study staff at ; after hours Drama Therapist via the [facility] hospital mail machine operator . - Please contact study team before resolving/deleting from patients problem list. Study phone number: [phone]. Diagnosis changed due to Research Module. Go [...] 08/01/2008 Overview: Study Titile: Event Registry Project #[id number] PI: Rachna Manley MD Please call [phone] with study related questions [employer] Other*[id number] 200611/16/2016 Overview: Study Title: Genomic Markers for Patients with Cardiovascular Disease Project # [id number] Drama Therapist: Rachna Manley MD [phone] Type 2 diabetes mellitus wit h hemoglobin A1c goal of less than 7.0% 11/15/2005 08/07/2009 Overview: Per Diabetes Taxonomy. ICD-10 update of inactive term Spondylolisthesis 05/11/2004 12/30/2021 HTN, goal below 140/90 12/08/2000 0 Overview: Per HTN Taxonomy. S/P total knee replacement, left 04/05/2023 Erosive osteoarthritis of both hands 04/05/2023 documented as of this encounter (statuses as of 07/18/2023) Immunizations Name Administration Dates Next Due COVID-19 mRNA, LNP-s, No Pre serve, 2-Dose Series ([employer] Resources) 10/06/2021,01/05/2021,12/09/2020 COVID-19, LNP-s, No Preserve , Angus-sucrose, Ages 12+ (Pfizer) 03/10/2022 Covid-19, Mrna, Lnp-s, Pf, B ivalent, 30 Mcg, IM, 12 yrs and above (Continuing Education Records & Resources) 07/13/2022 Pneumococcal Conjugate Vacc, 13 Valent (Prevnar) [...] on file documented as of this encounter Plan of Treatment Upcoming Encounters Date Type Specialty Care Team Description 08/01/2023 Therapy Psychology Beni Mares, PhD [address] [place], [place] [address] 09/06/2023 Office Visit Family Medicine Bartolome Villa DO [address] [place] [address] 09/16/2023 Office Visit Pharmacy [facility] [address] [place] [address] 09/23/2023 Nurse Only Ancillary [place] Nurse Annual Well[facility] [address] [place] [address] 11/18/2023 Office Visit Cardiology Chema Hayden MD [address] [place] [address] 02/23/2024 Office Visit Rheumatology Beni Fernandez MD [address] [facility] [address] Scheduled Procedures Name Priority Associated Diagnoses Date/Ti me COLONOSCOPY FLEXIBLE PROXIMA L DIAGNOSTIC Recall History of colonic polyps Health Maintenance Due Date Last Done Comments Diabetic Foot Exam 06/03/2022 06/03/2021, 0 03/25/2020, 04/03/2019, Additional history exists COVID-19 Vaccine (2022-24 season) 2023 07/13/2022, 03/10/2022, 10/06/2021, Additional history exists DIABETES-EYE EXAM 08/19/2023 08/19/2022, , 11/27/2019, Additional history exists CKD HGB USE SMARTSET 03038 09/09/202309/09, 09/09/2022, 06/04/2022, Additional history exists Depression Screening 09/22/2023 09/22/2022 GFR 10/21/2023 04/20/2023, 05/11, 11/17/2021, Additional history exists HbA1c 10/21/2023 04/20/2023, 05/11, 12/07/2021, Additional history exists Mammogram 04/08/2024 04/08/2023, 03/11, 01/29/2021, Additional history exists Albumin/Creatinine Ratio 04/20/2024 023, 03/25/2022, 10/30/2020, Additional history exists CKD PHOS USE SMARTSET 37136 04/20/202404/09, 11/17/2021, 03/26/2020, Additional history exists COLONOSCOPY-EVERY 3 YRS AGES 18-100 06/07/2026 06/07/2023, 06/07/2023, 08/29/2019, Additional history exists DXA Scan 11/09/2028 11/09/2021, 12/27/2016 DTaP,Tdap,and Td Vaccines (3 - Td or Tdap) 09/13/2029 09/13/2019, 07/30/2009, 01/09/1996, Additional history exists Pneumococcal Vaccine: 65+ Years Completed 05/09/2018, 11/25/2016, 07/18/2006 Zoster Vaccines Completed 06/25/2020, 03/10, 07/07/2015 LUNG CANCER SCREENING - USE SMARTSET 45921 Completed 02/15/2023, 04/06/2022, 05/09/2020, Additional history exists [...] and were consensually agreed upon. Care Teams Vice President Of Nursing Relationship Specialty Start Date End Date Bartolome Villa DO [address] [place] [address] PCP - General Family Medicine 02/16/23 documented as of this encounter
--- OUTSIDE RECORDS SUMMARY | 2023-10-27 07:04 | External Medical Summary | Summary of Care ---
Author Name Unknown Organization [facility] Address [address] [facility] [address] Phone [phone] Care Team Providers Care Commodity Supervisor Name Role Phone Bartolome Villa Primary Care Provider Reason for Visit * Reason Comments eRx-Medication Refill Encounter Details Date Type Department Care Team Description 07/28/2023 Refill Cardiology, [facility] [address] [address] Flako Gomez, PA-C [address] [place] [phone] Heart failure, systolic, due to CAD Allergies Active Allergy Reactions Severity Noted Date Comments Iodinated Contrast Media Itching 08/18/2011 Sitagliptin Phosphate Other (Please comment) 03/07/2013 pancreatitis Niacin High 06/14/2019 Other reaction(s): HOT/BURNING FEELING documented as of this encounter (statuses as of 07/28/2023) Medications Medication Sig Dispensed Refills Start Date [...] mg Oral QPM-1999, Reported on 06/02/2023 PEG 9510-LHr-JjQpj-NaC l-NaSulf 236 GM Oral Solution Reconstituted Please take according to Colonoscopy prep instructions. 4000 mL 0 01/22/20 23 Active NovoLOG FlexPen 100 UNIT/ML Subcutaneous Solution Pen-injector INJECT 8-12 UNITS PRIOR TO EACH MEAL -EXTRA IF NEEDED BASED ON BLOOD SUGAR 30 mL 1 02/07/20 Active Nystatin 641030 UNIT/GM External Cream Apply topically to affected area 2 times a day. Apply to vulva 2 times a day 45 g 04/11/20 23 Active Additional Information Patient taking [...] FIRST MEAL OF THE DAY 90 Capsule 04/18/20 23 Active Citalopram Hydrobromide 20 MG [...] bedtime. 60 Tablet 0 06/20/20 23 Active predniSONE 5 [...] EVENING 90 Tablet 1 07/24/20 23 Active oxyCODONE HCl 5 MG Oral Tablet (Oxy IR) Take 1 Tablet by mouth every 8 hours as needed for Pain, Severe. 20 Tablet 0 07/25/20 23 Active Furosemide 20 MG Oral Tablet (Lasix)Indications :Heart failure, systolic, due to CAD TAKE 2 TABLETS BY MOUTH ON MONDAYS, WEDNESDAYS, AND FRIDAYS. TAKE 1 TABLET BY MOUTH ON ALL OTHER DAYS OF THE WEEK. 135 Tablet 3 07/28/20 23 Active Furosemide 20 MG Oral Tablet (Lasix)Indications :Heart failure, systolic, due to CAD Take 40 mg by mouth on Mondays, Wednesdays, and Fridays. Take 20 mg by mouth all other days of the week. 135 Tablet 3 08/10/20 22 023 Discontinued documented as of this encounter (statuses as of 07/28/2023) Active Problems Problem Noted Date Moderate aortic valve stenosis 1 VINCE (obstructive sleep apnea) 08/20/2021 Chronic kidney disease, stage 3b 021 Overview: Per CKD protocol Coronary artery disease invo lving [place] coronary artery of [place] heart without angina pectoris 02/13/2019 Chronic systolic heart failure 9 Type 2 diabetes mellitus with hemoglobin A1c goal of less than 8.0% 02/02/2019 HTN, goal below 130/80 12/15/2015 Overview: Per HTN Protocol #27. Old NM (myocardial infarction) 5 Dyslipidemia 11/15/2012 Peripheral vascular disease 07/30/2009 S/P angioplasty with stent 08/09/2007 Bicuspid aortic valve Generalized osteoarthritis Fibromyalgia documented as of this encounter (statuses as of 07/28/2023) Resolved Problems Problem Noted Date Resolved Date [...] program 02/05/2019 05/12/2020 Overview: [facility] DELETE [facility] Study: Project # [id number], News Technical Director: Jona Mckeon, PhD. SUMMARY: Goal: Establish test [...] contact study staff at ; after hours News Technical Director via the [facility] cream separator operator . Please contact study team before resolving/deleting from patients problem list. Study phone number: [phone]. Diagnosis changed due to Research Module. Go to Snapshot for study details. Encounter for examination fo r normal comparison and control in clinical research program 02/05/2019 06/10/2022 Overview: DO NOT DELETE - [facility] Study: Project # [id number], News Technical Director: Vipin Carvalho, MS, MPH. SUMMARY: Goal: Establish [...] contact study staff at ; after hours News Technical Director via the [facility] cream separator operator . - Please contact study team before resolving/deleting from patients problem list. Study phone number: [phone]. Diagnosis changed due to Research Module. Go to HouseFix for study details. Type 2 diabetes mellitus wit h stage 3 chronic kidney disease, with long-term current use of insulin 02/02/2019 021 Overview: Per CKD protocol Hypertensive kidney disease with chronic kidney disease stage III 02/02/2019 03/20/2019 ADVANCE DIRECTIVE INFORMATION 01/03/2019 Overview: Information given at previous visit Depression 06/21/2018 12/30/2021 Hiatal hernia 06/21/2018 12/30/2021 History of NM (myocardial infarction) 05/09/2018 12/30/2021 Vulvar lesion 05/09/2018 [...] 08/01/2008 Overview: Study Titile: Event Registry Project #[id number] PI: Rachna Manley MD Please call [phone] with study related questions [employer] Other*[id number] 200611/16/2016 Overview: Study Title: Genomic Markers for Patients with Cardiovascular Disease Project # [id number] News Technical Director: Rachna Manley MD [phone] Type 2 diabetes mellitus wit h hemoglobin A1c goal of less than 7.0% 11/15/2005 08/07/2009 Overview: Per Diabetes Taxonomy. ICD-10 update of inactive term Spondylolisthesis 05/11/2004 12/30/2021 HTN, goal below 140/90 12/08/2000 0 Overview: Per HTN Taxonomy. S/P total knee replacement, left 04/05/2023 Erosive osteoarthritis of both hands 04/05/2023 documented as of this encounter (statuses as of 07/28/2023) Immunizations Name Administration Dates Next Due COVID-19 mRNA, LNP-s, No Pre serve, 2-Dose Series ([employer]) 10/06/2021,01/05/2021,12/09/2020 COVID-19, LNP-s, No Preserve , Angus-sucrose, Ages 12+ (Pfizer) 03/10/2022 Covid-19, Mrna, Lnp-s, Pf, B ivalent, 30 Mcg, IM, 12 yrs and above ([employer]) 07/13/2022 Pneumococcal Conjugate Vacc, 13 Valent (Prevnar) [...] encounter Miscellaneous Notes * Telephone Encounter - Indy Matias PA-C - 07/28/2023 11:39 AM EDT Signed Prescriptions: Disp Refills Furosemide 20 MG Oral Tablet (Lasix) 135 Ta*3 Sig: TAKE 2 TABLETS BY MOUTH ON MONDAYS, WEDNESDAYS, AND FRIDAYS. TAKE 1 TABLET BY MOUTH ON ALL OTHER DAYS OF THE WEEK. Authorizing Provider: INDY MATIAS * Telephone Encounter - YIMI Fernández - 07/28/2023 11:37 AM EDTPending Prescriptions: Disp Refills Furosemide 20 MG Oral Tablet [Pharmacy Med*135 Ta*3 Sig: TAKE 2 TABLETS BY MOUTH ON MONDAYS, WEDNESDAYS, AND FRIDAYS. TAKE 1 TABLET BY MOUTH ON ALL OTHER DAYS OF THE WEEK. * Telephone Encounter - YIMI Fernández - 07/28/2023 11:37 AM EDT Did you pend patient's preferred pharmacy and medication before forwarding?yes Pharmacy: [facility] [id number] [place] Pending Prescriptions: Disp Refills Furosemide 20 MG Oral Tablet (Lasix) [Pha*135 Ta*3 Sig: TAKE 2 TABLETS BY MOUTH ON MONDAYS, WEDNESDAYS, AND FRIDAYS. TAKE 1 TABLET BY MOUTH ON ALL OTHER DAYS OF THE WEEK. Last Visit: 01/21/2023 (in office), Visit date not found (telemedicine) Next Visit: 11/18/2023 If no future appointments scheduled, and last appointment is greater than a year ago, please schedule patient for a follow-up appointment Last date the medication was ordered: 08-10-2022 Is this request for a controlled substance?No Urine Drug Screen: Results for orders placed or performed in [...] results can be found in Results Review. Patient Phone Numbers Labs: Lab Results Component Value Date/Time CREAT 1.3 (H) 04/20/2023 12:54 PM CREAT 1.59 (A) 05/02/2021 12:00 AM CREAT 1.5 (H) 10/30/2020 01:02 PM POTASSIUM 4.9 04/20/2023 12:54 PM POTASSIUM 4.8 05/02/2021 12:00 AM POTASSIUM 5.4 (H) 10/30/2020 01:02 PM TSH 2.19 07/01/2023 09:31 AM TSH 0.794 05/01/2021 12:00 AM TSH 1.62 05/30/2020 01:02 PM LDLCALC 35 04/20/2023 12:54 PM LDLCALC 36 05/02/2021 12:00 AM LDLCALC 63 01/01/2019 11:06 AM LDLDIRECT 51 07/22/2021 10:24 AM LDLDIRECT 83 10/30/2020 01:02 PM LDLDIRECT 67 01/01/2019 11:06 AM ALT 20 04/20/2023 12:54 PM ALT 11 01/01/2019 11:06 AM HGBA1C 8.3 (H) 04/20/2023 12:54 PM HGBA1C 8.2 (A) 05/02/2021 12:00 AM HGBA1C 8.5 (H) 10/30/2020 01:02 PM documented in this encounter Plan of Treatment Upcoming Encounters Date Type Specialty Care Team Description 08/01/2023 Therapy Psychology Beni Mares, PhD [address] [address] 09/06/2023 Office Visit Family Medicine Bartolome Villa DO [address] [place] [address] 09/16/2023 Office Visit Pharmacy [facility] [address] [place] [address] 09/23/2023 Nurse Only Ancillary Nurse [facility] [address] [place] [address] 11/18/2023 Office Visit Cardiology Chema Hayden MD [address] [place] [address] 02/23/2024 Office Visit Rheumatology Beni Fernandez MD [address] [facility], [place] [address] Scheduled Procedures Name Priority Associated Diagnoses Date/Ti me COLONOSCOPY FLEXIBLE PROXIMA L DIAGNOSTIC Recall History of colonic polyps Health Maintenance Due Date Last Done Comments Diabetic Foot Exam 06/03/2022 06/03/2021, 0 03/25/2020, 04/03/2019, Additional history exists COVID-19 Vaccine ( season) 2023 07/13/2022, 03/10/2022, 10/06/2021, Additional history exists DIABETES-EYE EXAM 08/19/2023 08/19/2022, , 11/27/2019, Additional history exists CKD HGB USE SMARTSET 13619 09/09/202309/09, 09/09/2022, 06/04/2022, Additional history exists Depression Screening 09/22/2023 09/22/2022 GFR 10/21/2023 04/20/2023, 05/11, 11/17/2021, Additional history exists HbA1c 10/21/2023 04/20/2023, 05/11, 12/07/2021, Additional history exists Mammogram 04/08/2024 04/08/2023, 03/11, 01/29/2021, Additional history exists Albumin/Creatinine Ratio 04/20/2024 023, 03/25/2022, 10/30/2020, Additional history exists CKD PHOS USE SMARTSET 38971 04/20/202404/09, 11/17/2021, 03/26/2020, Additional history exists COLONOSCOPY-EVERY 3 YRS AGES 18-100 06/07/2026 06/07/2023, 06/07/2023, 08/29/2019, Additional history exists DXA Scan 11/09/2028 11/09/2021, 12/27/2016 DTaP,Tdap,and Td Vaccines (3 - Td or Tdap) 09/13/2029 09/13/2019, 07/30/2009, 01/09/1996, Additional history exists Pneumococcal Vaccine: 65+ Years Completed 05/09/2018, 11/25/2016, 07/18/2006 Zoster Vaccines Completed 06/25/2020, 03/10, 07/07/2015 LUNG CANCER SCREENING - USE SMARTSET 35048 Completed 02/15/2023, 04/06/2022, 05/09/2020, Additional history exists [...] as of this encounter Visit Diagnoses Diagnosis Heart failure, systolic, due to CAD Unspecified systolic heart failure documented in this encounter Advance Directives Latest Code Status on File Code Status Date Activated Date Inactivated Comments Full Code 07/04/2018 11:03 AM 07/04/2018 5:07 PM This order reflects the patients wishes and were consensually agreed upon. Care Teams Commodity Supervisor Relationship Specialty Start Date End Date Bartolome Villa DO [address] [place] [address] PCP - General Family Medicine 02/16/23 documented as of this encounter
--- OUTSIDE RECORDS SUMMARY | 2023-10-27 07:04 | External Medical Summary | Summary of Care ---
Author Name Unknown Organization [facility] Address [address] [facility] [place] [address] Phone [phone] Care Team Providers Care [employer]inerator Plant General Supervisor Name Role Phone Bartolome Villa DO Primary Care Provider Reason for Visit * Reason Onset Date Comments Advice 05/19/2023 Encounter Details Date Type Department Care Team (Late st Contact Info) Description 05/19/2023 Telephone Family Practice [facility] [address] [place] [address] Bartolome Villa DO [address] [place] [address] Advice Allergies Active Allergy Reactions Criticality Noted Date Comments Iodinated Contrast Media Itching 08/18/2011 Sitagliptin Phosphate Other (Please comment) 03/07/2013 pancreatitis Niacin High 06/14/2019 Other reaction(s): HOT/BURNING FEELING documented as of this encounter (statuses as of 08/18/2023) Medications Medication Sig Dispensed Refills Start Date End Date Status ONE TOUCH GLUCOSE MONITOR KITIndications:Imp aired fasting glucose use daily 1 0 10/06/2005 Active ASPIRIN 81 MG PO TABSIndications:Ol d myocardial infarct one tab by mouth daily 34 0 07/25/2007 Active ONETOUCH LANCETS MISCIndications:Im paired fasting glucose Use once daily to test blood sugar DX E11.9 100 Box Dosing Unit 11 02/10/2017 Active Diclofenac Sodium (REXAPHENAC) 1 % CREA Place topically on the skin 4 times a day as needed for Pain. Apply to toes 100 g 11 05/09/2018 Active Glucose Blood (ONETOUCH ULTRA BLUE) STRPIndications:Ty [...] 09/20/2022 Active Lisinopril 10 MG Oral Tablet (Prinivil)Indicati [...] mg Oral QPM-1999, Reported on 06/02/2023 PEG 1017-DOg-AhNsj-NaC l-NaSulf 236 GM Oral Solution Reconstituted Please take according to Colonoscopy prep instructions. 4000 mL 0 01/21/2023 Active NovoLOG FlexPen 100 UNIT/ML Subcutaneous Solution Pen-injector INJECT 8-12 UNITS PRIOR TO EACH MEAL -EXTRA IF NEEDED BASED ON BLOOD SUGAR 30 mL 1 02/06/2023 Active Nystatin 987629 UNIT/GM External Cream Apply topically to affected [...] EVERY MORNING 90 Tablet 3 04/30/2023 Active documented as of this encounter (statuses as of 08/18/2023) Active Problems Problem Noted Date Diagnosed Date Moderate aortic valve stenosis 09/02/2021 VINCE (obstructive sleep apnea) 08/20/2021 Chronic kidney disease, stage 3b 03/24/2021 Overview: Per CKD protocol Coronary artery disease invo lving [place] coronary artery of [place] heart without angina pectoris 02/13/2019 Chronic systolic heart failure 02/13/2019 Type 2 diabetes mellitus wit h hemoglobin A1c goal of less than 8.0% 02/02/2019 HTN, goal below 130/80 12/15/2015 Overview: Per HTN Protocol #27. Old CA (myocardial infarction) 04/21/2015 Dyslipidemia 11/15/2012 Peripheral vascular disease 07/30/2009 S/P angioplasty with stent 08/09/2007 Bicuspid aortic valve Generalized osteoarthritis Fibromyalgia documented as of this encounter (statuses as of 08/18/2023) Resolved Problems Problem Noted Date Diagnosed Date [...] program 02/05/2019 05/12/2020 Overview: DO NOT DELETE [facility] DETECT Study: Project # [id number], Rn Documentation Specialist: Jona Mckeon, PhD. SUMMARY: Goal: Establish test [...] contact study staff at ; after hours Rn Documentation Specialist via the [facility] power brake operator . Please contact study team before resolving/deleting from patients problem list. Study phone number: [phone]. Diagnosis changed due to Research Module. Go to Snapshot for study details. Encounter for examination fo r normal comparison and control in clinical research program 02/05/2019 06/10/2022 Overview: DO NOT DELETE [facility] Study: Project # [id number], Rn Documentation Specialist: Vipin Carvalho, MS, MPH. SUMMARY: Goal: Establish [...] contact study staff at ; after hours Rn Documentation Specialist via the [facility] power brake operator . - Please contact study team before resolving/deleting from patients problem list. Study phone number: [phone]. Diagnosis changed due to Research Module. Go to Res[employer] Research for study details. Type 2 diabetes mellitus wit h stage 3 chronic kidney disease, with long-term current use of insulin 02/02/2019 02/19/2021 Overview: Per CKD protocol Hypertensive kidney disease with chronic kidney disease stage III 02/02/2019 03/20/2019 ADVANCE DIRECTIVE INFORMATION 01/03/2019 12/30/2021 Overview: Information given at previous visit Depression 06/21/2018 12/30/2021 Hiatal hernia 06/21/2018 12/30/2021 History of CA (myocardial infarction) 05/09/2018 12/30/2021 Vulvar lesion 05/09/2018 [...] 08/01/2008 Overview: Study Titile: Event Registry Project #[id number] PI: Rachna Manley MD Please call [phone] with study related questions [employer] Other*[id number] 06/29/2007 11/16/2016 Overview: Study Title: Genomic Markers for Patients with Cardiovascular Disease Project # [id number] Rn Documentation Specialist: Rachna Manley MD [phone] Type 2 diabetes mellitus wit h hemoglobin A1c goal of less than 7.0% 11/15/2005 08/07/2009 Overview: Per Diabetes Taxonomy. ICD-10 update of inactive term Spondylolisthesis 05/11/2004 12/30/2021 HTN, goal below 140/90 12/08/200011/06 Overview: Per HTN Taxonomy. S/P total knee replacement, left 04/05/2023 Erosive osteoarthritis of both hands 04/05/2023 documented as of this encounter (statuses as of 08/18/2023) Immunizations Name Administration Dates Next Due COVID-19 mRNA, LNP-s, No Pre serve, 2-Dose Series ([employer])) 10/06/2021,01/05/2021,12/09/2020 COVID-19, LNP-s, No Preserve , Angus-sucrose, [...] encounter Miscellaneous Notes * Telephone Encounter - Bartolome Villa DO - 05/19/2023 2:52 PM EDT Thank you! * Telephone Encounter - Stephanie Thornton LPN - 05/19/2023 2:23 PM EDT (I) Information given to pt as directed. Pt sees MTM on 06/17/2023, advised she may discuss pain medication at this visit as well. Pt states she takes Tramadol ER 100 mg twice daily, and takes Oxycodone 5 mg 1 tab before bed approx 3-4 times per week. Pt states she may take Oxycodone 5 mg 2 tabs if first tab is not helping. Pt advised per Dr. Villa that he does not want to continue both prn meds due to below. Pt states she will see MTM as she would like Dr. Villa to stay her PCP and is in agreement d/c Tramadol 50 mg. Pt states brain fog has improved since d/c Duloxetine approx 3 weeks ago. * Telephone Encounter - Bartolome Villa DO - 05/19/2023 1:39 PM EDT I would only be ok with one PRN med At a time for opiate due to risk of Overdose/mixing meds/sedation Has complained recently about brain fog Will see if Dr Falcon has any input as she was able to evaluate patient during this time frame If she would like to continue with that regimen that's ok, but if patient is to remain under my care I will stop the IR tramadol or the oxy and we can work with MTM to find better baseline control * Telephone Encounter - Bartolome Villa DO - 05/19/2023 1:03 PM EDT So this patient is taking oxy 5, tramadol 100 and tramadol 50mg? I haven't seen her in person in some time But this regimen doesn't seem very good * Telephone Encounter - Marissa Riddle LPN - 05/19/2023 11:06 AM EDT I spoke to patient for a care gaps follow up. She is having an issue with her tramadol. She put a request in for 50's and it looked like it was the 100's that were refilled. She has not picked those up from the pharmacy. She didn't get a notification from [facility] that they were there. She still needs the 50mg tablets sent in. There is a previous phone encounter about this. Please advise. I pended the refill. documented in this encounter Plan of Treatment Upcoming Encounters Date Type Department Care Team (Late st Contact Info) Description 08/24/2023 2:00 PM EST Therapy Psychology, [facility] [address] [place] [address] Beni Mares, PhD [address] [place] [address] 09/06/2023 11:00 AM EST Office Visit Family Practice [facility] [address] [place] [address] Bartolome Villa DO [address] [place] [address] 09/21/2023 1:00 PM EST Office Visit Pharmacy, [facility] [address] [place] [address] [facility] [address] [facility] [place] [address] 09/23/2023 10:00 AM EST Nurse Only Ancillary [facility] [address] [facility] [place] [address] [facility], Nurse [facility] [address] [facility] [place] [address] 11/18/2023 11:30 AM EST Office Visit Cardiology, [facility] [address] [place] [address] Chema Hayden MD [address] [place] [address] 02/23/2024 10:00 AM EDT Office Visit Rheumatology [address] [place] [address] Beni Fernandez MD [address] [employer] [place], [place] [address] Scheduled Procedures Name Priority Associated Diagnoses Date/Ti [...] Additional history exists CKD HGB USE SMARTSET 00461 09/09/202309/09, 09/09/2022, 06/04/2022, Additional history exists Depression Screening 09/22/2023 09/22/2022 GFR 10/21/2023 04/20/2023, 05/11, 11/17/2021, Additional history exists HbA1c 10/21/2023 04/20/2023, 05/11, 12/07/2021, Additional history exists Mammogram 04/08/2024 04/08/2023, 03/11, 01/29/2021, Additional history exists Albumin/Creatinine Ratio 04/20/2024 023, 03/25/2022, 10/30/2020, Additional history exists CKD PHOS USE SMARTSET 34788 04/20/202404/09, 11/17/2021, 03/26/2020, Additional history exists COLONOSCOPY-EVERY 3 YRS AGES 18-100 06/07/2026 06/07/2023, 06/07/2023, 08/29/2019, Additional history exists DXA Scan 11/09/2028 11/09/2021, 12/27/2016 DTaP,Tdap,and Td Vaccines (3 - Td or Tdap) 09/13/2029 09/13/2019, 07/30/2009, 01/09/1996, Additional history exists Pneumococcal Vaccine: 65+ Years Completed 05/09/2018, 11/25/2016, 07/18/2006 Zoster Vaccines Completed 06/25/2020, 03/10, 07/07/2015 LUNG CANCER SCREENING - USE SMARTSET 37178 Completed 02/15/2023, 04/06/2022, 05/09/2020, Additional history exists [...] and were consensually agreed upon. Care Teams [employer]inerator [employer] General Supervisor Relationship Specialty Start Date End Date Bartolome Villa DO [address] [place] [address] PCP - General Family Medicine 02/16/23 documented as of this encounter
--- OUTSIDE RECORDS SUMMARY | 2023-10-27 07:04 | External Medical Summary | Summary of Care ---
Author Name Unknown Organization [facility] Address [address] [facility] [place] [address] Phone [phone] Care Team Providers Care Production Assistant Name Role Phone Bartolome Villa Primary Care Provider Reason for Visit * Reason Comments Follow Up Encounter Details Date Type Department Care Team (Late st Contact Info) Description 08/10/2023 2:00 PM EDT Therapy Psychology, [facility] [address] [place] [address] Beni Mares, PhD [address] [facility] [place] [address] Adjustment disorder with depressed mood* Allergies Active Allergy Reactions Criticality Noted Date Comments Iodinated Contrast Media Itching 08/18/2011 Sitagliptin Phosphate Other (Please comment) 03/07/2013 pancreatitis Niacin High 06/14/2019 Other reaction(s): HOT/BURNING FEELING documented as of this encounter (statuses as of 08/10/2023) Medications Medication Sig Dispensed Refills Start Date [...] 100 g 11 05/09/2018 Active Glucose Blood (License BuddyUCH ULTRA BLUE) STRPIndications:Typ e 2 diabetes mellitus [...] mg Oral QPM-1999, Reported on 06/02/2023 PEG 0959-PZk-UiSyi-NaCl -NaSulf 236 GM Oral Solution Reconstituted Please take according to Colonoscopy prep instructions. 4000 mL 0 01/21/2023 Active NovoLOG FlexPen 100 UNIT/ML Subcutaneous Solution Pen-injector INJECT 8-12 UNITS PRIOR TO EACH MEAL -EXTRA IF NEEDED BASED ON BLOOD SUGAR 30 mL 1 02/06/2023 Active Nystatin 761715 UNIT/GM External Cream Apply topically to affected [...] EVERY EVENING 90 Tablet 1 07/24/2023 Active oxyCODONE HCl 5 MG Oral Tablet (Oxy IR) Take 1 Tablet by mouth every 8 hours as needed for Pain, Severe. 20 Tablet 0 07/25/2023 Active Furosemide 20 MG Oral Tablet (Lasix)Indications: Heart failure, systolic, due to CAD TAKE 2 TABLETS BY MOUTH ON MONDAYS, WEDNESDAYS, AND FRIDAYS. TAKE 1 TABLET BY MOUTH ON ALL OTHER DAYS OF THE WEEK. 135 Tablet 3 07/28/2023 Active traMADol HCl ER 100 MG Oral Tablet Extended Release 24 Hour (Ultram ER)Indications:[place] le[place]or osteoarthritis of both hands Take 1 Tablet by mouth in the morning and 1 Tablet before bedtime. 60 Tablet 0 08/01/2023 Active documented as of this encounter (statuses as of 08/10/2023) Active Problems Problem Noted Date Diagnosed Date Moderate aortic valve stenosis 09/02/2021 VINCE (obstructive sleep apnea) 08/20/2021 Chronic kidney disease, stage 3b 03/24/2021 Overview: Per CKD protocol Coronary artery disease invo lving wales coronary artery of wales heart without angina pectoris 02/13/2019 Chronic systolic [...] as of this encounter (statuses as of 08/10/2023) Resolved Problems Problem Noted Date Diagnosed Date Resolved Date Inflammatory polyarthritis 03/26/2022 0 02/16/2023 Obesity, Class II, BMI 35-39 .9, isolated (see actual BMI) 12/30/2021 04/05/2023 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 SUMMARY: Goal: Establish [...] contact study staff at ; after hours Corporate Human Resources Manager via the [facility] second floor operator . Please contact study team before resolving/deleting from patients problem list. Study phone number: [phone]. Diagnosis changed due to Research Module. Go to Snapshot for study details. Encounter for examination fo r normal comparison and control in clinical research program 02/05/2019 06/10/2022 Overview: DO NOT DELETE - [facility] [place] Study: Project # [id number], Corporate Human Resources Manager: Vipin Carvalho, MS, MPH. SUMMARY: Goal: [...] contact study staff at ; after hours Corporate Human Resources Manager via the [facility] second floor operator . - Please contact study team before resolving/deleting from patients problem list. Study phone number: [phone]. Diagnosis changed due to Research Module. Go to JackBe for study details. Type 2 diabetes mellitus [...] 08/01/2008 Overview: Study Titile: Event Registry Project #[id number] PI: Rachna Manley MD Please call [phone] with study related questions [employer] Other*[id number] 06/29/2007 11/16/2016 Overview: Study Title: Gen[employer] Markers for Patients with Cardiovascular Disease Project # [id number] Corporate Human Resources Manager: Rachna Manley MD [phone] Type 2 diabetes mellitus wit h hemoglobin A1c goal of less than 7.0% 11/15/2005 08/07/2009 Overview: Per Diabetes Taxonomy. ICD-10 update of inactive term Spondylolisthesis 05/11/2004 12/30/2021 HTN, goal below 140/90 12/08/200011/06 Overview: Per HTN Taxonomy. S/P total knee replacement, left 04/05/2023 Erosive osteoarthritis of both hands 04/05/2023 documented as of this encounter (statuses as of 08/10/2023) Immunizations Name Administration Dates Next Due COVID-19 mRNA, LNP-s, No Pre serve, 2-Dose Series (WAYN) 10/06/2021,01/05/2021,12/09/2020 COVID-19, LNP-s, No Preserve , Angus-sucrose, Ages 12+ (Pfizer) 03/10/2022 Covid-19, Mrna, Lnp-s, Pf, B ivalent, 30 Mcg, IM, 12 yrs and above (WAYN) 07/13/2022 Pneumococcal Conjugate Vacc, 13 Valent (Prevnar) [...] Progress Notes * Beni Mares, PhD - 08/10/2023 2:51 PM EDT Patient location: CLINIC. I was in the same facility as the patient. After connecting through [employer], patient was verified with two unique identifiers. Patient (or authorized legal client representative)was then informed that this was a [...] that I have reviewed their record in [facility] and presented the opportunity for them to ask any questions regarding the visit today. The patient agreed to participate. Provider reviewed elements of Outpatient Services Description including limits of confidentiality, how to contact the department, risks and benefits of treatment and consent for treatment. Start Time: 1400 Stop Time: 1450 Total direct shul-yo-qhti time: 50 minutes BEHAVIORAL MEDICINE PROGRESS NOTE [place] [address] 08/10/2023 1400 TYPE OF VISIT: Individual DIAGNOSIS: Adjustment Disorder with Depressed Mood REASON FOR FOLLOW-UP: Individual therapy Session #: 5 SESSION FOCUS: relationship with her mother NOTES: I did not administer the FINN 7 or PHQ 9. Safety was evaluated verbally. She denied SI/HI. Pt reported that she and her had been sick with COVID for a little while -- it wasn't that bad and she is still dealing with some post- nasal drip. Her as started to have more falls -- she worries about his safety, but he refused to get checked out. Her own mobility has become compromised -- there is a part of her that would like to sell their current house, but Lillian likes it where they are. She spoke of her relationship with her mother. Her mother did not believe in paying her compliments or letting her know when she was good at things. She also discouraged her from speaking well of herself, saying that that was bragging. She doesn't think her mother intentionally tried to hurt her feelings, but it happened anyway. She laments that she doesn't have better self esteem and would like to work on improving that area. PROGRESS TOWARDS GOALS: Goal: Improved self-management of [...] = 0 (if anything but 0 administer [place]); 07/01/23: 0 Generalized Anxiety Disorder (FINN-7): 4 [...] regulation/self-soothing skills present: yes -has cultural or advent beliefs that discourage suicide: yes Risk Level Impression: -Low risk: Initiate outpatient therapy; safety plan may still be indicated; provided crisis numbers Crisis Plan: PLAN INCLUDED IN TREATMENT PLAN FOLLOW-UP PLAN: Return: 2 weeks Action Plan: 1. Continue Cognitive Behavioral Therapy Treatment plan reviewed with the patient. Patient voices understanding and concurs with plan. Beni Mares, PhD Division of Psychiatry & Behavioral Medicine [facility] [phone] documented in this encounter Plan of Treatment Upcoming Encounters Date Type Department Care Team (Late st Contact Info) Description 08/24/2023 2:00 PM EST Therapy Psychology, [facility] [address] [place] [address] Beni Mares, PhD [address] [place] [address] 09/06/2023 11:00 AM EST Office Visit [facility] [address] [facility] [place] [address] Bartolome Villa DO [address] [place] [address] 09/16/2023 10:30 AM EST Office Visit Pharmacy, [facility] [address] [facility] [place] [address] [facility] [address] [facility] [place] [address] 09/23/2023 10:00 AM EST Nurse Only Ancillary [facility] [address] [facility] [place] [address] Alejo, Nurse Annual Wellness [facility] [address] [facility] [place] [address] 11/18/2023 11:30 AM EST Office Visit Cardiology, [facility] [address] [facility] [place] [address] Chema Hayden MD [address] [place] [address] 02/23/2024 10:00 AM EDT Office Visit Rheumatology [place] [id number] [facility] [place] [address] Beni Fernandez MD [facility] [place] [address] Scheduled Procedures Name Priority Associated Diagnoses Date/Ti [...] Additional history exists CKD HGB USE SMARTSET 42030 09/09/202309/09, 09/09/2022, 06/04/2022, Additional history exists Depression Screening 09/22/2023 09/22/2022 GFR 10/21/2023 04/20/2023, 05/11, 11/17/2021, Additional history exists HbA1c 10/21/2023 04/20/2023, 0803/2022, 12/07/2021, Additional history exists Mammogram 04/08/2024 04/08/2023, 03/11, 01/29/2021, Additional history exists Albumin/Creatinine Ratio 04/20/2024 023, 03/25/2022, 10/30/2020, Additional history exists CKD PHOS USE SMARTSET 23753 04/20/202404/09, 11/17/2021, 03/26/2020, Additional history exists COLONOSCOPY-EVERY 3 YRS AGES 18-100 06/07/2026 06/07/2023, 06/07/2023, 08/29/2019, Additional history exists DXA Scan 11/09/2028 11/09/2021, 12/27/2016 DTaP,Tdap,and Td Vaccines (3 - Td or Tdap) 09/13/2029 09/13/2019, 07/30/2009, 01/09/1996, Additional history exists Pneumococcal Vaccine: 65+ Years Completed 05/09/2018, 11/25/2016, 07/18/2006 Zoster Vaccines Completed 06/25/2020, 03/10, 07/07/2015 LUNG CANCER SCREENING - USE SMARTSET 05181 Completed 02/15/2023, 04/06/2022, 05/09/2020, Additional history exists [...] and were consensually agreed upon. Care Teams Production Assistant Relationship Specialty Start Date End Date Bartolome Villa DO [address] [place] [address] PCP - General Family Medicine 02/16/23 documented as of this encounter
[2023-10-27] MEDS ORDERED: SODIUM CHLORIDE 0.9% 500 ML IV STA (07:05)
--- OUTSIDE RECORDS SUMMARY | 2023-10-27 07:05 | External Medical Summary | Summary of Care ---
Author Name Unknown Organization [facility] Address [address] [place] [address] Phone [phone] Care Team Providers Care Incident Commander Name Role Phone Bartolome Villa Primary Care Provider Reason for Visit * Reason Comments NEW PATIENT * Evaluate & Treat - Unlimited Visits (Within 10 days (routine)) - Authorized Specialty Diagnoses / Procedures Referred By Julia guadalupe Referred To Contact Neurology Diagnoses Jerking movements of extremities Lorna Villagmoez MD [address] [place] [address] Referral ID Status Reason Start Date Expiration Date Visits Requested Visits Authorized [id number] Authorized Specialty Services Required 04/26/[phone] Encounter Details Date Type Department Care Team Description 07/01/2023 Office Visit Neurology [facility] [place] [place] [address] [place] [address] Izzy Hughes MD [address] [place] [address] Myoclonus*; Tremor Allergies Active Allergy Reactions Severity Noted Date [...] A1c goal of less than 7.0% ([facility]) TEST FOUR TIMES DAILY AND UP [...] (Lasix)Indications: Heart failure, systolic, due to CAD ([facility]) Take 40 mg by mouth on Mondays, [...] A1c goal of less than 7.0% ([facility]) Use with insulin twice daily as [...] mg Oral QPM-1999, Reported on 06/02/2023 PEG [id number]-NaCl -NaSulf 236 GM Oral Solution Reconstituted Please take according to Colonoscopy prep instructions. 4000 mL 0 01/21/2023 Active NovoLOG FlexPen 100 UNIT/ML Subcutaneous Solution Pen-injector INJECT 8-12 UNITS PRIOR TO EACH MEAL -EXTRA IF NEEDED BASED ON BLOOD SUGAR 30 mL 1 02/06/2023 Active Nystatin 699902 UNIT/GM External Cream Apply topically to affected [...] Oral Tablet Extended Release 24 Hour (Ultram ER)Indications:Charlotte leonor osteoarthritis of both hands Take 1 [...] CKD protocol Coronary artery disease invo lving chinik coronary artery of chinik heart without angina pectoris 02/13/2019 Chronic systolic heart failure 9 Type 2 diabetes mellitus with hemoglobin A1c goal of less than 8.0% 02/02/2019 HTN, goal below 130/80 12/15/2015 Overview: Per HTN Protocol #27. Old [place] (myocardial infarction) 5 Dyslipidemia 11/15/2012 Peripheral vascular [...] program 02/05/2019 05/12/2020 Overview: DO NOT DELETE [facility] DETECT Study: Project # [id number], Sample Room Supervisor: Jona Mckeon, PhD. SUMMARY: Goal: Establish [...] contact study staff at ; after hours Sample Room Supervisor via the [facility] cut roll machine operator . Please contact study team before resolving/deleting from patients problem list. Study phone number: [phone]. Diagnosis changed due to Research Module. Go to Snapshot for study details. Encounter for examination fo r normal comparison and control in clinical research program 02/05/2019 06/10/2022 Overview: DO NOT DELETE - [facility] Study: Project # [id number], Sample Room Supervisor: Vipin Carvalho, MS, MPH. SUMMARY: Goal: [...] contact study staff at ; after hours Sample Room Supervisor via the [facility] cut roll machine operator . - Please contact study team before resolving/deleting from patients problem list. Study phone number: [phone]. Diagnosis changed due to Research Module. Go [...] 08/01/2008 Overview: Study Titile: Event Registry Project #[id number] PI: Rachna Manley MD Please call [phone] with study related questions [employer] Other*[id number] 200611/16/2016 Overview: Study Title: Genomic Markers for Patients with Cardiovascular Disease Project # [id number] Sample Room Supervisor: Rachna Manley MD [phone] Type 2 diabetes mellitus wit h hemoglobin [...] mRNA, LNP-s, No Pre serve, 2-Dose Series (Sova) 10/06/2021,01/05/2021,12/09/2020 COVID-19, LNP-s, No Preserve , Angus-sucrose, Ages 12+ (Pfizer) 03/10/2022 Covid-19, Mrna, Lnp-s, Pf, B ivalent, 30 Mcg, IM, 12 yrs and above (Sova) 07/13/2022 Pneumococcal Conjugate Vacc, 13 Valent (Prevnar) [...] Sign Reading Time Taken Comments Blood Pressure 128/62 07/01/2023 8:47 AM EDT Pulse 62 07/01/2023 8:47 AM EDT Temperature 36.5 C (97.7 F) 07/01/2023 8:47 AM ED T Respiratory Rate 16 07/01/2023 8:47 AM EDT Oxygen Saturation - - Inhaled Oxygen Concentration - - Weight 90.1 kg (198 lb 11.2 oz) 07/01/2023 8:47 AM EDT Height - - Body Mass Index 32.56 06/30/2023 10:48 AM EDT documented in this encounter Progress Notes * Izzy Hughes MD - 07/01/2023 9:23 AM EDT CLINIC NOTES Neurology [facility] [place] [address] [place] [address] Zaina London : 1950 NEUROLOGY OUTPATIENT NOTE 07/01/2023 HISTORY: The patient is referred for consultation by Dr. Villagomez and Allen, who will be receiving acopy of this note. Reason for consultation jerking movement The patient is a 71-year-old right-handed female with several year history of jerks in her hands more so in the morning. Can be the right hand or left hand and it is a brief jerk. She also may occasionally have a tremor in her hands but more so when she is hypoglycemic. She has renal insufficiency. She is on inappropriately dose of gabapentin for renal function. She takes tramadol most days and occasionally takes oxycodone. She is also on an SSRI. No family history of tremor or abnormal movement. She checks her blood sugar each morning but is not sure that she is ever checked her blood sugar when she has said jerks. Most recent liver function was normal. Past Medical History: Diagnosis Date ASCVD (arteriosclerotic cardiovascular disease) Bicuspid aortic valve Controlled substance agreement signed 07/20/2016 DM type 2, goal A1c below 7 Dyslipidemia, goal LDL below 70 11/15/2012 Fibromyalgia Generalized OA Heart failure, systolic, due to CAD ([facility]) 12/04/2015 History of [place] (myocardial infarction) 05/09/2018 HTN, goal below 140/90 ILD (interstitial lung disease) ([facility]) Kidney disease, chronic, stage III (GFR 30-59 ml/min) ([facility]) 01/20/2015 Per CKD protocol #1 Lung nodule [place] (myocardial infarction) ([facility]) 2006 [place] (myocardial infarction) ([facility]) 2010 Obesity, Class II, BMI 35-39.9, isolated (see actual BMI) 12/30/2021 Osteoarthritis, hand Peripheral vascular disease ([facility]) 07/30/2009 S/P angioplasty with stent 08/09/2007 S/P total knee replacement, left Spondylolisthesis 05/11/2004 ST elevation [place] (STEMI) ([facility]) 04/21/2015 Patient Active Problem List Diagnosis Code S/P angioplasty with stent Z95.820 Peripheral vascular disease ([facility]) I73.9 Dyslipidemia E78.5 Old [place] (myocardial infarction) I25.2 HTN, goal below 130/80 I10 Bicuspid aortic valve Q23.1 Generalized osteoarthritis M15.9 Type 2 diabetes mellitus with hemoglobin A1c goal of less than 8.0% ([facility]) E11.9 Coronary artery disease involving chinik coronary artery of chinik heart without angina pectoris I25.10 Chronic systolic heart failure (HCC) I50.22 Fibromyalgia M79.7 Chronic kidney disease, stage 3b ([facility]) N18.32 VINCE (obstructive sleep apnea) G47.33 Moderate aortic valve stenosis I35.0 Past Surgical History: Procedure Laterality Date ARTHROPLASTY KNEE TOTAL Left 08/2015 CARDIAC CATH INJ. FOR CORONARY ANGIOGRAPHY 2006 2 cypher drug eluding stents CARDIAC DRUG [facility]ENT PLACE, ADD'L 2014 2 LENA stents placed CARDIAC DRUG [facility]ENT [facility]ACE, SINGLE 2010 COLONOSCOPY, DIAGNOSTIC (RECTUM) 01/02/2014 COLONOSCOPY FLEXIBLE PROXIMAL DIAGNOSTIC performed by Armando Crandall MD at [facility] COLONOSCOPY, DIAGNOSTIC (RECTUM) 08/29/2019 normal,poor prep-COLONOSCOPY FLEXIBLE PROXIMAL DIAGNOSTIC performed by Brenda Nolasco MD at [facility] COLONOSCOPY, DIAGNOSTIC (RECTUM) 06/07/2023 diverticulosis/biopsies show tubulovillous adenoma/recall 3 years/COLONOSCOPY FLEXIBLE PROXIMAL DIAGNOSTIC performed by Adryan Don MD at [facility] EGD, FLEXIBLE, DIAGNOSTIC 04/06/2016 mild inflammation/ESOPHAGOGASTRODUODENOSCOPY (EGD), FLEXIBLE, TRANSORAL, DIAGNOSTIC performed by Zara Woods DO at [facility] LASERING OF SECONDARY CATARACT Left 01/06/2015 YAG LASER OS, DR. YO ALFARO LASERING OF SECONDARY CATARACT Right 01/13/2015 YAG LASER OD, DR. 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 Tobacco Use Smoking status: Former Packs/day: 1.00 Years: 40.00 Pack years: 40.00 Types: Cigarettes Quit date: 05/28/2015 Years since quittin.0 Smokeless tobacco: Never Vaping Use Vaping Use: [...] on file Food Insecurity: No Food Insecurity Worried About Running Out of Food in the Last Year: Never true Ran Out of Food in the Last Year: Never true Transportation Needs: Not on file Physical Activity: Not on file Stress: Not on file Social Connections: Not on file Intimate Partner Violence: Not on file Housing Stability: Not on file Family History Problem Relation Age of Onset Hypertension Father Heart attack Father 42 fatal Hypertension Mother Arthritis Mother Eye Problems None denies fm: glaucoma, blindness, AMD, RD No Past Hx None No FM HX of [employer] [place] Heart disease Brother Hearing loss Daughter Autoimmune ear disease - Follows with Rheumatology Arthritis Brother hand arthritis; 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 Apply to toes 100 g 11 Glucose Blood (ONETOUCH ULTRA [...] taking: Reported on 06/02/2023) 25 Tab 11 Probiotic Daily Oral Capsule Take by mouth 1 Capsule in the morning. Docusate Sodium 50 MG Oral Capsule (Colace) Take 3 Capsules by mouth as needed for Constipation. (Patient not taking: Reported on 06/02/2023) predniSONE 5 MG Oral Tablet (Deltasone) TAKE 1 TABLET BY MOUTH EVERY DAY DIRECTED 90 Tablet 3 Metoprolol Succinate ER 100 MG Oral Tablet Extended Release 24 Hour (toPROL XL) TAKE 1 TABLET BY MOUTH EVERY EVENING 90 Tablet 3 amLODIPine Besylate 5 MG Oral Tablet (Norvasc) TAKE 1 TABLET BY MOUTH EVERY DAY (Patient taking differently: Take 1 Tablet by mouth every evening.) 90 Tablet 3 Furosemide 20 MG Oral Tablet (Lasix) Take 40 mg by mouth on Mondays, Wednesdays, and Fridays. Take 20 mg by mouth all other days of the week. 135 Tablet 3 Famotidine 20 MG Oral Tablet (Pepcid) Take by mouth 1 Tablet before bedtime. 90 Tablet 5 BD Insulin Syringe Ultrafine 31G X 15/64" 0.5 ML (Insulin Syringe-Needle U-100) Use with insulin twice daily as directed. E11.9 200 Each 1 NovoLIN N 100 UNIT/ML Subcutaneous Suspension (insulin isophane human) INJECT 40 UNITS SUBCUTANEOUSLY (UNDER THE SKIN) BEFORE BREAKFAST AND INJECT 40 UNITS BEFORE SUPPER 30 mL 11 Lisinopril 10 MG Oral Tablet (Prinivil) TAKE 1 TABLET BY MOUTH EVERY DAY (Patient taking differently: Take 1 Tablet by mouth every evening.) 90 Tablet 3 Rosuvastatin Calcium 40 MG Oral Tablet (Crestor) TAKE 1 TABLET BY MOUTH EVERY DAY (Patient taking differently: Take 1 Tablet by mouth every evening.) 90 Tablet 3 PEG [id number]-EhVwr-NaCl-NaSulf 236 GM Oral Solution Reconstituted Please take according to Colonoscopy prep instructions. 4000 mL 0 NovoLOG FlexPen 100 UNIT/ML Subcutaneous Solution Pen-injector INJECT 8-12 UNITS PRIOR TO EACH MEAL-EXTRA IF NEEDED BASED ON BLOOD SUGAR 30 mL 1 Nystatin 660432 UNIT/GM External Cream Apply topically to affected area 2 times a day. Apply to vulva 2 times a day (Patient taking differently: Apply topically to affected area as needed. Apply to vulva 2 times a day) 45 g 1 Estradiol 0.1 MG/GM Vaginal Cream (Estrace) To vulva daily for 4 weeks and then 2 times a week 42.5g 3 Omeprazole 40 MG Oral Capsule Delayed Release (PriLOSEC) TAKE 1 CAPSULE BY MOUTH EVERY DAY 1 HOUR BEFORE THE FIRST MEAL OF THE DAY 90 Capsule 3 Citalopram Hydrobromide 20 MG Oral Tablet (CeleXA) Take 1/2 tablet by mouth daily for 4 weeks then take 1 tablet by mouth daily. 30 Tablet 11 Prasugrel HCl 10 MG Oral Tablet (Effient) [...] Release (Cyanocobalamin ER) Take by mouth daily. traMADol HCl ER 100 MG Oral Tablet Extended Release 24 Hour (Ultram ER) Take 1 Tablet by mouth in the morning and 1 Tablet before bedtime. 60 Tablet 0 oxyCODONE HCl 5 MG Oral Tablet (Oxy IR) Take 1 Tablet by mouth every 8 hours as needed for Pain, Severe. 20 Tablet 0 No current facility-administered medications for this visit. Review of patient's allergies indicates: Allergen Reactions Niacin Other reaction(s): HOT/BURNING FEELING Iodinated Contrast Media Itching Januvia [Sitagliptin Phosphate] Other (Please comment) pancreatitis REVIEW OF SYSTEMS: As above PHYSICAL EXAM: BP 128/62 | Pulse 62 | Temp 36.5 C (97.7 F) (Tympanic) | Resp 16 | Wt 90.1 kg (198 lb 11.2 oz) | LMP 06/21/2003 | BMI 32.56 kg/m | BSA 2.04 m The patient is awake and alert speech and language are normal affect appropriate there are no carotid bruits there is a systolic murmur heard best over the aortic area there is no resting tremor or cogwheel rigidity. No myoclonic jerks are noted. Pupils are equal round reactive to light. There is normal visual hardin motility normal facial symmetry no head voice or jaw tremor is noted no facial masking is noted. Motor normal bulk and tone full strength no drift normal rapid alternating movements symmetric reflexes absent ankle jerks downgoing toes. Vibration present at the ankles. There is a fine tremor on intention no asterixis or myoclonus is noted. 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 I would advise that she check a blood sugar once or twice to make sure that she is not hypoglycemic or hyperglycemic. Likely this is related to her narcotic use SSRI use and renal insufficiency. Will check a thyroid function an ammonia level to rule out hyperammonemia. The general treatment is to reduce the medications causing myoclonus. I think it is not bothersome at this point and the patient requires her pain medications return as needed Izzy Hughes MD 07/01/2023 9:24 AM documented in this encounter Nursing Notes * JALEN Anton - 07/01/2023 8:47 AM EDT Chief Complaint Patient presents with NEW PATIENT documented in this encounter Plan of Treatment Upcoming Encounters Date Type Specialty Care Team Description 07/01/2023 Therapy Psychology Beni Mares, PhD [address] [place] [address] Arrived 09/06/2023 Office Visit Family Medicine Bartolome Villa DO [address] [place] [address] 09/16/[address] [facility] [place] [address] [place] [address] 09/23/2023 Nurse Only Ancillary [facility] [place] [address] [place] [address] 11/18/2023 Office Visit Cardiology Chema Hayden MD [address] [place] [address] 02/23/2024 Office Visit Rheumatology Beni Fernandez MD [address] [place] [address] Pending Results Name Type Priority Associated Diagnoses Date /Time AMMONIA Lab Routine Myoclonus 07/01/2023 9:31 AM EDT TSH Lab Routine Myoclonus Tremor 07/01/2023 9:31 AM EDT Scheduled Procedures Name Priority Associated Diagnoses Date/Ti me COLONOSCOPY FLEXIBLE PROXIMA L DIAGNOSTIC Recall History of colonic polyps Health Maintenance Due Date Last Done Comments Diabetic Foot Exam 06/03/2022 06/03/2021, 0 03/25/2020, 04/03/2019, Additional history exists Influenza Vaccine (FLU shot) (#1) 2023 07/16/2022, 06/30/2021, 06/10/2020, Additional history exists DIABETES-EYE EXAM 08/19/2023 08/19/2022, , 11/27/2019, Additional history exists CKD HGB USE SMARTSET 12778 09/09/202309/09, 09/09/2022, 06/04/2022, Additional history exists Depression Screening 09/22/2023 09/22/2022 GFR 10/21/2023 04/20/2023, 05/11, 11/17/2021, Additional history exists HbA1c 10/21/2023 04/20/2023, 05/11, 12/07/2021, Additional history exists Mammogram 04/08/2024 04/08/2023, 03/11, 01/29/2021, Additional history exists Albumin/Creatinine Ratio 04/20/2024 023, 03/25/2022, 10/30/2020, Additional history exists CKD PHOS USE SMARTSET 57760 04/20/202404/09, 11/17/2021, 03/26/2020, Additional history exists COLONOSCOPY-EVERY [...] exists LUNG CANCER SCREENING - USE SMARTSET 66152 Completed 02/15/2023, 04/06/2022, 05/09/2020, Additional history exists [...] as of this encounter Visit Diagnoses Diagnosis Myoclonus- Primary Tremor Abnormal involuntary movements documented in this encounter Advance Directives Latest Code Status on File Code Status Date Activated Date Inactivated Comments Full Code 07/04/2018 11:03 AM 07/04/2018 5:07 PM This order reflects the patients wishes and were consensually agreed upon. Care Teams Incident Commander Relationship Specialty Start Date End Date Bartolome Villa DO [address] [place] [address] PCP - General Family Medicine 02/16/23 documented as of this encounter
--- OUTSIDE RECORDS SUMMARY | 2023-10-27 07:05 | External Medical Summary | Summary of Care ---
Author Name Unknown Organization [facility] Address [address] [place] [address] Phone [phone] Care Team Providers Care Astronomy Department Chair Name Role Phone Bartolome Villaирина Primary Care Provider Reason for Visit * Reason Comments Depression Encounter Details Date Type Department Care Team Description 06/08/2023 Therapy Psychology, [facility] [address] [place] [address] Beni Mares, PhD [address] [place] [address] Adjustment disorder with depressed mood* Allergies Active Allergy Reactions Severity Noted Date Comments Iodinated Contrast Media Itching 08/18/2011 Sitagliptin Phosphate Other (Please comment) 03/07/2013 pancreatitis Niacin High 06/14/2019 Other reaction(s): HOT/BURNING FEELING documented as of this encounter (statuses as of 06/08/2023) Medications Medication Sig Dispensed Refills Start Date [...] 100 g 11 05/09/2018 Active Glucose Blood (Abound SolarTOUCH ULTRA BLUE) STRPIndications:Typ e 2 diabetes mellitus with hemoglobin A1c goal of less than 7.0% ([facility]) TEST FOUR TIMES DAILY AND UP TO [...] hemoglobin A1c goal of less than 7.0% ([facility]) Use with insulin twice daily as directed. [...] mg Oral QPM-1999, Reported on 06/02/2023 PEG 1623-OZr-[id number]-NaCl -NaSulf 236 GM Oral Solution Reconstituted Please take according to Colonoscopy prep instructions. 4000 mL 0 01/21/2023 Active NovoLOG FlexPen 100 UNIT/ML Subcutaneous Solution Pen-injector INJECT 8-12 UNITS PRIOR TO EACH MEAL -EXTRA IF NEEDED BASED ON BLOOD SUGAR 30 mL 1 02/06/2023 Active Nystatin [id number] UNIT/GM External Cream Apply topically to affected area 2 times a day. Apply to vulva 2 times a day 45 g 1 04/11/2023 Active Additional Information Patient taking differently:TopicalPRN, Apply to vulva 2 times a day, Reported on 04/20/2023 Semaglutide(0.25 or 0.5MG/DOS) 2 MG/3ML Solution Pen-injector (Ozempic) Inject 0.25 mg weekly for 4 weeks and then 0.50 mg weekly 3 mL 5 04/15/2023 Active Additional Information Patient not taking.Reported on 04/20/2023 Estradiol 0.1 MG/GM Vaginal Cream (Estrace) To vulva daily for 4 weeks and then 2 times a week 42.5 g 3 04/22/2023 Active Additional Information Patient not taking.Reported on 06/02/2023 Omeprazole 40 MG Oral Capsule Delayed Release (PriLOSEC) TAKE 1 CAPSULE BY MOUTH EVERY DAY 1 HOUR BEFORE THE FIRST MEAL OF THE DAY 90 Capsule 3 04/18/2023 Active traMADol HCl 50 MG Oral Tablet (Ultram) Take 2 Tablets by mouth in the morning and 2 Tablets in the evening. For pain, in addition to EX release. 0 Active Citalopram Hydrobromide 20 MG Oral Tablet (CeleXA) Take 1/2 tablet by mouth daily for 4 weeks then take 1 tablet by mouth daily. 30 Tablet 11 04/25/2023 Active Prasugrel HCl 10 MG Oral Tablet (Effient) TAKE 1 TABLET BY MOUTH EVERY MORNING 90 Tablet 3 04/30/2023 Active oxyCODONE HCl 5 MG Oral Tablet (Oxy IR) Take 1 Tablet by mouth every 8 hours as needed for Pain, Severe. 20 Tablet 0 05/17/2023 Active traMADol HCl ER 100 MG Oral Tablet Extended Release 24 Hour (Ultram ER)Indications:[place] leonor osteoarthritis of both hands Take 1 Tablet by mouth in the morning and 1 Tablet before bedtime. 60 Tablet 0 05/17/2023 Active Gabapentin 300 MG Oral Capsule (Neurontin)Indicati [...] ER) Take by mouth daily. 0 Active documented as of this encounter (statuses as of 06/08/2023) Active Problems Problem Noted Date Moderate aortic valve stenosis 1 VINCE (obstructive sleep apnea) 08/20/2021 Chronic kidney disease, stage 3b 021 Overview: Per CKD protocol Coronary artery disease invo lving council coronary artery of council heart without angina pectoris 02/13/2019 Chronic systolic heart failure 9 Type 2 diabetes mellitus with hemoglobin A1c goal of less than 8.0% 02/02/2019 HTN, goal below 130/80 12/15/2015 Overview: Per HTN Protocol #27. Old GA (myocardial infarction) 5 Dyslipidemia 11/15/2012 Peripheral vascular disease 07/30/2009 S/P angioplasty with stent 08/09/2007 Bicuspid aortic valve Generalized osteoarthritis Fibromyalgia documented as of this encounter (statuses as of 06/08/2023) Resolved Problems Problem Noted Date Resolved Date [...] [facility] DETECT Study: Project # [id number], Terminal Manager: Jona Mckeon, PhD. SUMMARY: Goal: Establish [...] contact study staff at ; after hours Terminal Manager via the [facility] camera operator . Please contact study team before resolving/deleting from patients problem list. Study phone number: [phone]. Diagnosis changed due to Research Module. Go to Snapshot for study details. Encounter for examination fo r normal comparison and control in clinical research program 02/05/2019 06/10/2022 Overview: DO NOT DELETE - [facility] Study: Project # [id number], Terminal Manager: Vipin Carvalho, MS, MPH. SUMMARY: Goal: [...] contact study staff at ; after hours Terminal Manager via the [facility] camera operator . - Please contact study team before resolving/deleting from patients problem list. Study phone number: [phone]. Diagnosis changed due to Research Module. Go to Snapshot for study details. Type 2 diabetes mellitus wit h stage 3 chronic kidney disease, with long-term current use of insulin 02/02/2019 05/13/2 021 Overview: Per CKD protocol Hypertensive kidney disease with chronic kidney disease stage III 02/02/2019 03/20/2019 ADVANCE DIRECTIVE INFORMATION 01/03/2019 Overview: Information given at previous visit Depression 06/21/2018 12/30/2021 Hiatal hernia 06/21/2018 12/30/2021 History of GA (myocardial infarction) 05/09/2018 12/30/2021 Vulvar lesion 05/09/2018 [...] 08/01/2008 Overview: Study Titile: Event Registry Project #[id number] PI: Rachna Manley MD Please call [phone] with study related questions [employer] Other*[id number] 200611/16/2016 Overview: Study Title: Genomic Markers for Patients with Cardiovascular Disease Project # [id number] Terminal Manager: Rachna Manley MD [phone] Type 2 diabetes mellitus wit h hemoglobin A1c goal of less than 7.0% 11/15/2005 08/07/2009 Overview: Per Diabetes Taxonomy. ICD-10 update of inactive term Spondylolisthesis 05/11/2004 12/30/2021 HTN, goal below 140/90 12/08/2000 0 Overview: Per HTN Taxonomy. S/P total knee replacement, left 04/05/2023 Erosive osteoarthritis of both hands 04/05/2023 documented as of this encounter (statuses as of 06/08/2023) Immunizations Name Administration Dates Next Due COVID-19 mRNA, LNP-s, No Pre serve, 2-Dose Series ([employer]) 10/06/2021,01/05/2021,12/09/2020 COVID-19, LNP-s, No Preserve , Angus-sucrose, Ages 12+ (Pfizer) 03/10/2022 Covid-19, Mrna, Lnp-s, Pf, B ivalent, 30 Mcg, IM, 12 yrs and above ([employer]) 07/13/2022 Pneumococcal Conjugate Vacc, 13 Valent (Prevnar) [...] Progress Notes * Beni Mares, PhD - 06/08/2023 11:52 AM EDT Patient location: CLINIC. I was in the same facility as the patient. After connecting through [email or web address], patient was verified with two unique identifiers. 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 The patient agreed to participate. Provider reviewed elements of Outpatient Services Description including limits of confidentiality, how to contact the department, risks and benefits of treatment and consent for treatment. Start Time: 1115 Stop Time: 1153 Total direct yfdm-to-jfpd time: 38 minutes BEHAVIORAL MEDICINE PROGRESS NOTE Sami Woodall Arabella [address] [facility] [address] 06/08/2023 1115 TYPE OF VISIT: Individual DIAGNOSIS: Adjustment Disorder with Depressed Mood REASON FOR FOLLOW-UP: Individual therapy Session #: 1 SESSION FOCUS: Phase of Life issues NOTES: Pt accidentally went to the wrong appt location and therefore arrived late. In the interest of time, the PHQ 9 and FINN 7 were not administered. Safety was assessed verbally. She denied SI/HI. Pt reported that she and her have had a difficult time lately managing their house and property. The house is large and needs a lot of work. The land is expansive and they maintain several acres to include some trails. Her is unable to work on the land like he used to. Her son who lives with them is not interested in maintaining the property. She is considering selling what they own, but she has lived there for so long and it has a great deal of sentimental value. Her daughter has been l ooking for a place where they could all live, but there isn't a lot of inventory. Talked about the aspects of this decision and how stressful it can be. PROGRESS TOWARDS GOALS: Goal: Improved self-management of [...] -5-9; Moderate 10-14; Mod Severe 15-19; Severe 20+) PHQ-9, item 9 = 0 (if anything but 0 administer [place]) Generalized Anxiety Disorder (FINN-7): 4 (0-4 Min; Mild -5-9; Moderate 10-14; Severe 15+) INTERVENTION: Outpatient Adult Therapy Treatment Plan Treatment [...] regulation/self-soothing skills present: yes -has cultural or shinto beliefs that discourage suicide: yes Risk Level Impression: -Low risk: Initiate outpatient therapy; safety plan may still be indicated; provided crisis numbers Crisis Plan: PLAN INCLUDED IN TREATMENT PLAN FOLLOW-UP PLAN: Return: 1 week Action Plan: 1. Continue Cognitive Behavioral Therapy Treatment plan reviewed with the patient. Patient voices understanding and concurs with plan. Beni Mares, PhD Division of Psychiatry & Behavioral Medicine [facility] [phone] documented in this encounter Plan of Treatment Upcoming Encounters Date Type Specialty Care Team Description 06/17/2023 Therapy Psychology Beni Mares, PhD [address] [facility] [place] [address] 06/17/2023 Office Visit Pharmacy [facility] [address] [place] [address] 07/28/2023 Office Visit Family Medicine Bartolome Villa DO [address] [place] [address] 09/23/2023 Nurse Only Ancillary Nurse [facility] [address] [place] [address] 10/24/2023 Office Visit Neurology Izzy Hughes MD [address] [facility] [place] [address] 11/18/2023 Office Visit Cardiology Chema Hayden MD [address] [place] [address] 02/23/2024 Office Visit Rheumatology Beni Fernandez MD [address] [place] [address], [place] [address] Health Maintenance Due Date Last Done Comments DIABETES-FOOT EXAM 06/03/2022 06/03/2021, 0 03/25/2020, 04/03/2019, Additional history exists Influenza Vaccine (FLU shot) (#1) 2023 07/16/2022, 06/30/2021, 06/10/2020, Additional history exists DIABETES-EYE EXAM 08/19/2023 08/19/2022, , 11/27/2019, Additional history exists CKD HGB USE SMARTSET 04367 09/09/202309/092, 09/09/2022, 06/04/2022, Additional history exists Depression Screening, Annual for Pts 12 and Over 09/22/2023 09/22/2022 GFR 10/21/2023 04/20/2023, 05/11, 11/17/2021, Additional history exists HbA1c 10/21/2023 04/20/2023, 05/11, 12/07/2021, Additional history exists Mammogram 04/08/2024 04/08/2023, 03/11, 01/29/2021, Additional history exists Albumin/Creatinine Ratio 04/20/2024 023, 03/25/2022, 10/30/2020, Additional history exists CKD PHOS USE SMARTSET 79390 04/20/202404/09, 11/17/2021, 03/26/2020, Additional history exists COLONOSCOPY-EVERY 2 YRS AGES 18-100 06/07/2025 06/07/2023, 08/29/2019, 08/29/2019, Additional history exists DXA Scan 11/09/2028 11/09/2021, 12/27/2016 DTaP,Tdap,and Td Vaccines (3 - Td or Tdap) 09/13/2029 09/13/2019, 07/30/2009, 01/09/1996, Additional history exists Pneumococcal Vaccine: 65+ Years Completed 05/09/2018, 11/25/2016, 07/18/2006 Zoster Vaccines Completed 06/25/2020, 03/10, 07/07/2015 COVID-19 Vaccine Completed 07/13/2022, 10/2021, 10/06/2021, Additional history exists LUNG CANCER SCREENING - USE SMARTSET 86240 Completed 02/15/2023, 04/06/2022, 05/09/2020, Additional history exists GARDASIL-HPV IMMUNIZATION SERIES Aged [...] and were consensually agreed upon. Care Teams Astronomy Department Chair Relationship Specialty Start Date End Date Bartolome Villa DO [address] [place] [address] PCP - General Family Medicine 02/16/23 documented as of this encounter
--- OUTSIDE RECORDS SUMMARY | 2023-10-27 07:05 | External Medical Summary ---
Author Name Unknown Address Unknown Organization [id number]:LABORATORY [facility] [place] - [address] [place] [address] Laboratory Report Ordering Provider Test Date Status FORTUNATO MILTON 07/01/2023 09:31:11 Final Observation Date Value Abnormality Reference (Units ) Status TSH 07/01/2023 09:31:11 2.19 0.27-4.20 (uIU/mL) Final Performing Location LABORATORY [facility] - [address] [place] [address]
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
--- OUTSIDE RECORDS SUMMARY | 2023-10-27 07:05 | External Medical Summary ---
Author Name Unknown Address Unknown Organization K01:[facility] - [address] [place] [address] Laboratory Report Ordering Provider Test Date Status FARIHA GERBER 07/01/2023 09:31:11 Final Observation Date Value Abnormality Reference (Units ) Status CK 07/01/2023 09:31:11 156 26-192 (U/ L) Final Performing Location [facility] - [address] [place] [address]
--- OUTSIDE RECORDS SUMMARY | 2023-10-27 07:05 | External Medical Summary ---
Author Name Unknown Address Unknown Organization : Laboratory Report Ordering Provider Test Date Status HARITHA SWANSON 06/07/2023 09:11:08 Final Observation Date Value Abnormality Reference (Units ) Status Glucose Point of Care 06/07/2023 09:11:08 183 Above high normal 70-120 (mg/dL) Final Performing Location
--- OUTSIDE RECORDS SUMMARY | 2023-10-27 07:05 | External Medical Summary | Summary of Care ---
Author Name Unknown Organization [facility] Address [address] [facility] [place] [address] Phone [phone] Care Team Providers Care Burn Out Scarfing Operator Name Role Phone Sumit Villa Primary Care Provider Encounter Details Date Type Department Care Team Description 06/17/2023 Refill Pharmacy, [facility] [address] [facility] [place] [address] [facility] [address] [facility] [place] [address] Erosive osteoarthritis of both hands Allergies Active Allergy Reactions Severity Noted Date Comments Iodinated Contrast Media Itching 08/18/2011 Sitagliptin Phosphate Other (Please comment) 03/07/2013 pancreatitis Niacin High 06/14/2019 Other reaction(s): HOT/BURNING FEELING documented as of this encounter (statuses as of 06/20/2023) Medications Medication Sig Dispensed Refills Start Date [...] g 11 05/09/20 18 Active Glucose Blood ([employer]ango Systems LtdTOUCH ULTRA BLUE) STRPIndications:Ty pe 2 diabetes mellitus with hemoglobin A1c goal of less than 7.0% ([facility]) TEST FOUR TIMES DAILY AND UP [...] DAY DIRECTED 90 Tablet 3 08/02/20 22 Active Metoprolol Succinate ER 100 MG Oral [...] (Lasix)Indications :Heart failure, systolic, due to CAD ([facility]) Take 40 mg by mouth on [...] goal of less than 7.0% ([facility]) Use with insulin twice daily as directed. E11.9 200 Each 1 09/08/20 Active NovoLIN N 100 UNIT/ML Subcutaneous Suspension (insulin isophane human) INJECT 40 UNITS SUBCUTANEOUSLY (UNDER THE SKIN) BEFORE BREAKFAST AND INJECT 40 UNITS BEFORE SUPPER 30 mL 11 09/20/20 Active Lisinopril 10 MG Oral Tablet (Prinivil)Indicati [...] mg Oral QPM-1999, Reported on 06/02/2023 PEG 8886-ZUi-KpVvv-NaC l-NaSulf 236 GM Oral Solution Reconstituted Please take according to Colonoscopy prep instructions. 4000 mL 0 01/22/20 23 Active NovoLOG FlexPen 100 UNIT/ML Subcutaneous Solution Pen-injector INJECT 8-12 UNITS PRIOR TO EACH MEAL -EXTRA IF NEEDED BASED ON BLOOD SUGAR 30 mL 1 02/07/20 23 Active Nystatin 714848 UNIT/GM External Cream Apply topically to affected [...] week 42.5 g 3 04/22/20 23 Active Additional Information Patient not taking.Reported on [...] Severe. 20 Tablet 0 06/20/20 23 Active Semaglutide(0.25 or 0.5MG/DOS) 2 MG/3ML Solution Pen-injector (Ozempic) Inject 0.25 mg weekly for 4 weeks and then 0.50 mg weekly 3 mL 5 04/15/20 23 023 Discontinued(Gilbert baker preference/disc ontinuation) traMADol HCl 50 MG Oral Tablet (Ultram) Take 2 Tablets by mouth in the morning and 2 Tablets in the evening. For pain, in addition to EX release. 0 023 Discontinued oxyCODONE HCl 5 MG Oral Tablet (Oxy IR) Take 1 Tablet by mouth every 8 hours as needed for Pain, Severe. 20 Tablet 0 05/17/20 23 023 Discontinued(Re fill) traMADol HCl ER 100 MG Oral Tablet Extended Release 24 Hour (Ultram ER)Indications:Ero sive osteoarthritis of both hands Take 1 Tablet by mouth in the morning and 1 Tablet before bedtime. 60 Tablet 0 05/17/20 23 023 Discontinued documented as of this encounter (statuses as of 06/20/2023) Active Problems Problem Noted Date Moderate aortic valve stenosis VINCE (obstructive sleep apnea) 08/20/2021 Chronic kidney disease, stage 3b 021 Overview: Per CKD protocol Coronary artery disease invo lving quinault coronary artery of quinault heart without angina pectoris 02/13/2019 Chronic systolic heart failure 9 Type 2 diabetes mellitus with hemoglobin A1c goal of less than 8.0% 02/02/2019 HTN, goal below 130/80 12/15/2015 Overview: Per HTN Protocol #27. Old SD (myocardial infarction) 5 Dyslipidemia 11/15/2012 Peripheral vascular disease 07/30/2009 S/P angioplasty with stent 08/09/2007 Bicuspid aortic valve Generalized osteoarthritis Fibromyalgia documented as of this encounter (statuses as of 06/20/2023) Resolved Problems Problem Noted Date Resolved Date [...] 02/05/2019 05/12/2020 Overview: DO NOT DELETE [facility] DETECT Study: Project # [id number], Wireless Development Manager: Jona Mckeon, PhD. SUMMARY: Goal: Establish [...] contact study staff at ; after hours Wireless Development Manager via the [facility] hospital natural gas treating unit operator . Please contact study team before resolving/deleting from patients problem list. Study phone number: [phone]. Diagnosis changed due to Research Module. Go to Snapshot for study details. Encounter for examination fo r normal comparison and control in clinical research program 02/05/2019 06/10/2022 Overview: DO NOT DELETE - [facility] DETECT Study: Project # [id number], Wireless Development Manager: Vipin Carvalho, MS, MPH. SUMMARY: Goal: [...] contact study staff at ; after hours Wireless Development Manager via the [facility] hospital natural gas treating unit operator . - Please contact study team before resolving/deleting from patients problem list. Study phone number: [phone]. Diagnosis changed due to Research Module. Go [...] 12/30/2021 Hiatal hernia 06/21/2018 12/30/2021 History of SD (myocardial infarction) 05/09/2018 12/30/2021 Vulvar lesion 05/09/2018 [...] 08/01/2008 Overview: Study Titile: Event Registry Project #[id number] PI: Rachna Manley MD Please call [phone] with study related questions [employer] Other*[id number] 200611/16/2016 Overview: Study Title: Genomic Markers for Patients with Cardiovascular Disease Project # [id number] Wireless Development Manager: Rachna Manley MD [phone] Type 2 diabetes mellitus wit h hemoglobin A1c goal of less than 7.0% 11/15/2005 08/07/2009 Overview: Per Diabetes Taxonomy. ICD-10 update of inactive term Spondylolisthesis 05/11/2004 12/30/2021 HTN, goal below 140/90 12/08/2000 0 Overview: Per HTN Taxonomy. S/P total knee replacement, left 04/05/2023 Erosive osteoarthritis of both hands 04/05/2023 documented as of this encounter (statuses as of 06/20/2023) Immunizations Name Administration Dates Next Due COVID-19 mRNA, LNP-s, No Pre serve, 2-Dose Series ([employer]) 10/06/2021,01/05/2021,12/09/2020 COVID-19, LNP-s, No Preserve , Angus-sucrose, Ages 12+ (Pfizer) 03/10/2022 Covid-19, Mrna, Lnp-s, Pf, B ivalent, 30 Mcg, IM, 12 yrs and above ([employer]) 07/13/2022 Pneumococcal Conjugate Vacc, 13 Valent (Prevnar) [...] Telephone Encounter - Sumit Villa DO - 06/20/2023 8:34 AM EDTSigned Prescriptions: Disp Refills traMADol HCl ER 100 MG Oral Tablet Extende*60 Tab*0 Sig: Take 1Tablet by mouth in the morning and 1 Tablet before bedtime.Authorizing Provider: SUMIT VILLA oxyCODONE HCl 5 MG Oral Tablet (Oxy IR) 20 Tab*0 Sig: Take 1 Tablet by mouth every 8 hours as needed for Pain, Severe.Authorizing Provider: SUMIT VILLA * Telephone Encounter - Tosha Liu RPh - 06/17/2023 2:43 PM EDT Moe, Patient requesting refills of oxycodone and tramadol ER. Prescriptions pended for your approval. Thank you, Tosha Liu, Pharm D, [facility] Clinical Pharmacist 06/17/2023, 2:44 PM documented in this encounter Plan of Treatment Upcoming Encounters Date Type Specialty Care Team Description 07/01/2023 Therapy Psychology Beni Mares, PhD [address] [place] [address] 07/28/2023 Office Visit Family Medicine Sumit Villa DO [address] [place] [address] 09/16/2023 Office Visit Pharmacy [facility] [place] [address] [place] [address] 09/23/2023 Nurse Only Ancillary Alejo, Nurse [facility] [place] [address] [place] [address] 10/24/2023 Office Visit Neurology Izzy Hughes MD [address] [place] [address] 11/18/2023 Office Visit Cardiology Chema Hayden MD [address] [place] [address] 02/23/2024 Office Visit Rheumatology Beni Fernandez MD [address] [place] [address] Scheduled Procedures Name Priority Associated Diagnoses Date/Ti me COLONOSCOPY FLEXIBLE PROXIMA L DIAGNOSTIC Recall History of colonic polyps Health Maintenance Due Date Last Done Comments Diabetic Foot Exam 06/03/2022 06/03/2021, 0 03/25/2020, 04/03/2019, Additional history exists Influenza Vaccine (FLU shot) (#1) 2023 07/16/2022, 06/30/2021, 06/10/2020, Additional history exists DIABETES-EYE EXAM 08/19/2023 08/19/2022, , 11/27/2019, Additional history exists CKD HGB USE SMARTSET 17427 09/09/202309/09, 09/09/2022, 06/04/2022, Additional history exists Depression Screening 09/22/2023 09/22/2022 GFR 10/21/2023 04/20/2023, 05/11, 11/17/2021, Additional history exists HbA1c 10/21/2023 04/20/2023, 05/11, 12/07/2021, Additional history exists Mammogram 04/08/2024 04/08/2023, 03/11, 01/29/2021, Additional history exists Albumin/Creatinine Ratio 04/20/2024 023, 03/25/2022, 10/30/2020, Additional history exists CKD PHOS USE SMARTSET 25768 04/20/202404/09, 11/17/2021, 03/26/2020, Additional history exists COLONOSCOPY-EVERY [...] exists LUNG CANCER SCREENING - USE SMARTSET 28322 Completed 02/15/2023, 04/06/2022, 05/09/2020, Additional history exists [...] and were consensually agreed upon. Care Teams Burn Out Scarfing Operator Relationship Specialty Start Date End Date Sumit Villa DO [address] [place] [address] PCP - General Family Medicine 02/16/23 documented as of this encounter
--- OUTSIDE RECORDS SUMMARY | 2023-10-27 07:05 | External Medical Summary | Summary of Care ---
Author Name Unknown Organization [facility] Address [address] [facility] [place] [address] Phone [phone] Care Team Providers Care Locomotive Pipe Fitter Name Role Phone Bartolome Villa Primary Care Provider Reason for Visit * Reason Comments Dosage Adjustment In Person (Anticoag Cl inic) Encounter Details Date Type Department Care Team Description 06/17/2023 [facility] [address] [facility] [address] [facility] [address] [facility] [place] [address] Type 2 diabetes mellitus with hemoglobin A1c goal of less than 8.0% ([facility])* Allergies Active Allergy Reactions Severity Noted Date Comments Iodinated Contrast Media Itching 08/18/2011 Sitagliptin Phosphate Other (Please comment) 03/07/2013 pancreatitis Niacin High 06/14/2019 Other reaction(s): HOT/BURNING FEELING documented as of this encounter (statuses as of 06/17/2023) Medications Medication Sig Dispensed Refills Start Date [...] 100 g 11 05/09/2018 Active Glucose Blood (ZhilabsTOUCH ULTRA BLUE) STRPIndications:Typ e 2 diabetes mellitus with hemoglobin A1c goal of less than 7.0% ([facility]) TEST FOUR TIMES DAILY AND UP TO [...] hemoglobin A1c goal of less than 7.0% ([facility]) Use with insulin twice daily as directed. [...] mg Oral QPM-1999, Reported on 06/02/2023 PEG 2142-PTc-PxYlj-NaCl -NaSulf 236 GM Oral Solution Reconstituted Please take according to Colonoscopy prep instructions. 4000 mL 0 01/21/2023 Active NovoLOG FlexPen 100 UNIT/ML Subcutaneous Solution Pen-injector INJECT 8-12 UNITS PRIOR TO EACH MEAL -EXTRA IF NEEDED BASED ON BLOOD SUGAR 30 mL 1 02/06/2023 Active Nystatin 178260 UNIT/GM External Cream Apply topically to affected [...] Oral Tablet Extended Release 24 Hour (Ultram ER)Indications:[facility]or osteoarthritis of both hands Take 1 [...] as of this encounter (statuses as of 06/17/2023) Active Problems Problem Noted Date Moderate aortic valve stenosis 1 VINCE (obstructive sleep apnea) 08/20/2021 Chronic kidney disease, stage 3b 021 Overview: Per CKD protocol Coronary artery disease invo lving kaw coronary artery of kaw heart without angina pectoris 02/13/2019 Chronic systolic heart failure 9 Type 2 diabetes mellitus with hemoglobin A1c goal of less than 8.0% 02/02/2019 HTN, goal below 130/80 12/15/2015 Overview: Per HTN Protocol #27. Old NC (myocardial infarction) 5 Dyslipidemia 11/15/2012 Peripheral vascular disease 07/30/2009 S/P angioplasty with stent 08/09/2007 Bicuspid aortic valve Generalized osteoarthritis Fibromyalgia documented as of this encounter (statuses as of 06/17/2023) Resolved Problems Problem Noted Date Resolved Date [...] DELETE [facility] DETECT Study: Project # [id number], Senior Support Analyst: Jona Mckeon, PhD. SUMMARY: Goal: Establish test [...] contact study staff at ; after hours Senior Support Analyst via the [facility] high lift operator . Please contact study team before resolving/deleting from patients problem list. Study phone number: [phone]. Diagnosis changed due to Research Module. Go to Snapshot for study details. Encounter for examination fo r normal comparison and control in clinical research program 02/05/2019 06/10/2022 Overview: DO NOT DELETE - [facility] DETECT Study: Project # [id number], Senior Support Analyst: Vipin Carvalho, MS, MPH. SUMMARY: Goal: Establish [...] contact study staff at ; after hours Senior Support Analyst via the [facility] hospital high lift operator . - Please contact study team before resolving/deleting from patients problem list. Study phone number: [phone]. Diagnosis changed due to Research Module. Go to Social IQ (Social Influence Quotient) for study details. Type 2 diabetes mellitus wit h stage 3 chronic kidney disease, with long-term current use of insulin 02/02/2019 021 Overview: Per CKD protocol Hypertensive kidney disease with chronic kidney disease stage III 02/02/2019 03/20/2019 ADVANCE DIRECTIVE INFORMATION 01/03/2019 Overview: Information given at previous visit Depression 06/21/2018 12/30/2021 Hiatal hernia 06/21/2018 12/30/2021 History of NC (myocardial infarction) 05/09/2018 12/30/2021 Vulvar lesion 05/09/2018 [...] 08/01/2008 Overview: Study Titile: Event Registry Project #[id number] PI: Rachna Manley MD Please call [phone] with study related questions [employer] Other*[id number] 200611/16/2016 Overview: Study Title: Genomic Markers for Patients with Cardiovascular Disease Project # [id number] Senior Support Analyst: Rachna Manley MD [phone] Type 2 diabetes mellitus wit h hemoglobin A1c goal of less than 7.0% 11/15/2005 08/07/2009 Overview: Per Diabetes Taxonomy. ICD-10 update of inactive term Spondylolisthesis 05/11/2004 12/30/2021 HTN, goal below 140/90 12/08/2000 0 Overview: Per HTN Taxonomy. S/P total knee replacement, left 04/05/2023 Erosive osteoarthritis of both hands 04/05/2023 documented as of this encounter (statuses as of 06/17/2023) Immunizations Name Administration Dates Next Due COVID-19 mRNA, LNP-s, No Pre serve, 2-Dose Series ([employer]) 10/06/2021,01/05/2021,12/09/2020 COVID-19, LNP-s, No Preserve , Angus-sucrose, [...] this encounter Progress Notes * Tosha Liu, [facility] - 06/17/2023 1:56 PM EDT Images from the original note were not included. Medication Therapy Disease Management [facility] - Chronic Pain Management Progress Note 06/17/2023 Zaina London, identified by name and date of , is a 72 year old female being seen for chronic pain management/education. Patient presents to pain MTM clinic for return visit. Referring Physician: Dr. Villa Medication Agreement: on filed 03/25/[address] Villa Patient Pharmacy: [facility] CHIEF COMPLAINT: arthritis HPI: Patient stopped IR tramadol, notes this didn't really effect her pain much Patient stopped cymbalta, notes this did help her brain fog but also increased her pain Dealing with some stress at home with caring for a large house/property mainly by herself Pain described as: achy, sharp, dull, sharp radiating pain with sciatica Sleep: hard to sleep due to legs Palliating factors: laying down helps/half reclined, cold, gardening Exacerbating factors: steps, walking some times Other interventions tried: back surgery, not a candidate for injections Worst time of day for pain: evening Imaging: n/a Psych History: depression Neurological Hx: none Cardiac Hx: NC x3 Renal Hx: CKD Hepatic Hx: none Other: none Illicit Substance/Rx/Alcohol Abuse: no Opioid Risk Assessment Tool (BRQ): 0 Daily MME: 57.5 PDMP Reviewed (06/17/23): Functional Goal: QOL Current Pain Level (06/17/23): no change Pain Level [...] Diclofenac gel PRN Current DM Medications: NPH 40 units BID Novolog 8-12 units with meals Creatinine Clearance: Serum creatinine: 1.3 mg/dL (H) 04/20/23 1254 Estimated creatinine clearance: 44.6 mL/min (A) Creatinine Results: Recent Labs Units 04/20/23 1254 06/04/22 1116 11/17/21 1152 CREATININE - [facility] mg/dL 1.3* 1.3* 1.2* Hepatic Function (ALT): Recent Labs Units 04/20/23 1254 07/22/21 1024 ALT - [facility] U/L 20 17 Comprehensive Metabolic Panel Results: Results for orders [...] Medication Optimization. Current concerns: currently stable with pain management Adherence: Reviewed current regimen, patient is adherent to regimen. Treatment options: continue at this time Treatment concerns: increase in pain with stopping cymbalta and mild increase with stopping tramadol IR Education provided: n/a I have evaluated the [...] Continue current medications Medication changes: no change Pain Medications: Current Pain Medications: Gabapentin 300 AM and 600 PM Tramadol ER 100 BID Oxycodone 5 mg q8h PRN - only taking at night PRN Prednisone 5 mg daily Diclofenac gel PRN Current DM Medications: NPH 40 units BID Novolog 8-12 units with meals Patient verbalized understanding of the plan. Contact clinic with any issues. FOLLOW UP: Return to clinic in 12 weeks 09/16/2023 Tosha Liu RPh Clinical Pharmacist - [facility] 06/17/2023, 1:58 PM documented in this encounter Plan of Treatment Upcoming Encounters Date Type Specialty Care Team Description 07/01/2023 Therapy Psychology Beni Mares, PhD [address] [place] [address] 07/28/2023 Office Visit Family Medicine Bartolome Villa DO [address] [place] [address] 09/16/2023 Office Visit [facility]acy [facility] [place] [address] [place] [address] 09/23/2023 Nurse Only Ancillary Alejo Nurse [facility] [place] [address] [place] [address] 10/24/2023 Office Visit Neurology Izzy Hughes MD [address] [place] [address] 11/18/2023 Office Visit Cardiology Chema Hayden MD [address] [place] [place] [address] 02/23/2024 Office Visit Rheumatology Beni Fernandez MD [address] [facility] [place] [address] Scheduled Procedures Name Priority Associated Diagnoses Date/Ti me COLONOSCOPY FLEXIBLE PROXIMA L DIAGNOSTIC Recall History of colonic polyps Health Maintenance Due Date Last Done Comments Diabetic Foot Exam 06/03/2022 06/03/2021, 0 03/25/2020, 04/03/2019, Additional history exists Influenza Vaccine (FLU shot) (#1) 2023 07/16/2022, 06/30/2021, 06/10/2020, Additional history exists DIABETES-EYE EXAM 08/19/2023 08/19/2022, , 11/27/2019, Additional history exists CKD HGB USE SMARTSET 50678 09/09/202309/09, 09/09/2022, 06/04/2022, Additional history exists Depression Screening 09/22/2023 09/22/2022 GFR 10/21/2023 04/20/2023, 08/2 03/2022, 11/17/2021, Additional history exists HbA1c 10/21/2023 04/20/2023, 05/11, 12/07/2021, Additional history exists Mammogram 04/08/2024 04/08/2023, 03/11, 01/29/2021, Additional history exists Albumin/Creatinine Ratio 04/20/2024 023, 03/25/2022, 10/30/2020, Additional history exists CKD PHOS USE SMARTSET 08899 04/20/202404/09, 11/17/2021, 03/26/2020, Additional history exists COLONOSCOPY-EVERY [...] exists LUNG CANCER SCREENING - USE SMARTSET 30757 Completed 02/15/2023, 04/06/2022, 05/09/2020, Additional history exists [...] hemoglobin A1c goal of less than 8.0% (HCC)- Primary documented in this encounter Advance Directives Latest Code Status on File Code Status Date Activated Date Inactivated Comments Full Code 07/04/2018 11:03 AM 07/04/2018 5:07 PM This order reflects the patients wishes and were consensually agreed upon. Care Teams Locomotive Pipe Fitter Relationship Specialty Start Date End Date Bartolome Villa DO [address] [place] [address] PCP - General Family Medicine 02/16/23 documented as of this encounter
--- OUTSIDE RECORDS SUMMARY | 2023-10-27 07:05 | External Medical Summary | Summary of Care ---
Author Name Unknown Organization [facility] Address [address] [place] [address] Phone [phone] Care Team Providers Care Meatman Name Role Phone Villa Bartolome Beeирина Primary Care Provider Reason for Visit * Auth/Cert Specialty Diagnoses / Procedures Referred By Julia guadalupe Referred To Contact Diagnoses Special screening for malignant neoplasms, colon Special screening for malignant neoplasms, colon [Z12.11] Procedures COLONOSCOPY, DIAGNOSTIC (RECTUM) COLONOSCOPY FLEXIBLE PROXIMAL DIAGNOSTIC Referral ID Status Reason Start Date Expiration Date Visits Re quested Visits Authorized [id number] [phone] Encounter Details Date Type Department Care Team Description 06/07/2023 Hospital Encounter ENDO [facility], Endoscopy Room [facility] [address] [place] [id number] Adryan Don MD [address] [place] [id number] Colonoscopy Allergies Active Allergy Reactions Severity Noted Date Comments Iodinated Contrast Media Itching 08/18/2011 Sitagliptin Phosphate Other (Please comment) 03/07/2013 pancreatitis Niacin High 06/14/2019 Other reaction(s): HOT/BURNING FEELING documented as of this encounter (statuses as of 06/07/2023) Medications Medication Sig Dispensed Refills Start Date End Date Status ONE TOUCH GLUCOSE MONITOR KITIndications:Jose davenport fasting glucose use daily 1 0 10/06/2005 [...] A1c goal of less than 7.0% (FORMERLY [facility]) TEST FOUR TIMES DAILY AND UP TO [...] A1c goal of less than 7.0% ([facility]ER[facility]) Use with insulin twice daily as directed. [...] mg Oral QPM-1999, Reported on 06/02/2023 PEG 0423-RTv-PcGbw-NaCl -NaSulf 236 GM Oral Solution Reconstituted Please take according to Colonoscopy prep instructions. 4000 mL 0 01/21/2023 Active NovoLOG FlexPen 100 UNIT/ML Subcutaneous Solution Pen-injector INJECT 8-12 UNITS PRIOR TO EACH MEAL -EXTRA IF NEEDED BASED ON BLOOD SUGAR 30 mL 1 02/06/2023 Active Nystatin 656418 UNIT/GM External Cream Apply topically to affected area 2 times a day. Apply to vulva 2 times a day 45 g 1 04/11/2023 Active Additional Information Patient taking differently:TopicalPRN, Apply to vulva 2 times a day, Reported on 04/20/2023 Omeprazole 40 MG Oral Capsule Delayed Release [...] Oral Tablet Extended Release 24 Hour (Ultram ER)Indications:[place] osteoarthritis of both hands Take 1 [...] as of this encounter (statuses as of 06/07/2023) Active Problems Problem Noted Date Moderate aortic valve stenosis 1 VINCE (obstructive sleep apnea) 08/20/2021 Chronic kidney disease, stage 3b 021 Overview: Per CKD protocol Coronary artery disease invo lving [place] coronary artery of [place] heart without angina pectoris 02/13/2019 Chronic systolic heart failure 9 Type 2 diabetes mellitus with hemoglobin A1c goal of less than 8.0% 02/02/2019 HTN, goal below 130/80 12/15/2015 Overview: Per HTN Protocol #27. Old PR (myocardial infarction) 5 Dyslipidemia 11/15/2012 Peripheral vascular disease 07/30/2009 S/P angioplasty with stent 08/09/2007 Bicuspid aortic valve Generalized osteoarthritis Fibromyalgia documented as of this encounter (statuses as of 06/07/2023) Resolved Problems Problem Noted Date Resolved Date [...] [facility] [place] [facility] Study: Project # [id number], Soda Tester: Jona Mckeon, PhD. SUMMARY: Goal: Establish test [...] contact study staff at ; after hours Soda Tester via the [facility] power chisel operator . Please contact study team before resolving/deleting from patients problem list. Study phone number: [phone]. Diagnosis changed due to Research Module. Go to Snapshot for study details. Encounter for examination fo r normal comparison and control in clinical research program 02/05/2019 06/10/2022 Overview: DO NOT DELETE - [facility] [place] Study: Project # [id number], Soda Tester: Vipin Carvalho, MS, MPH. SUMMARY: Goal: Establish [...] contact study staff at ; after hours Soda Tester via the [facility] power chisel operator . - Please contact study team before resolving/deleting from patients problem list. Study phone number: [phone]. Diagnosis changed due to Research Module. Go to [employer] for study details. Type 2 diabetes mellitus wit h stage 3 chronic kidney disease, with long-term current use of insulin 02/02/2019 021 Overview: Per CKD protocol Hypertensive kidney disease with chronic kidney disease stage III 02/02/2019 03/20/2019 ADVANCE DIRECTIVE INFORMATION 01/03/2019 Overview: Information given at previous visit Depression 06/21/2018 12/30/2021 Hiatal hernia 06/21/2018 12/30/2021 History of PR (myocardial infarction) 05/09/2018 12/30/2021 Vulvar lesion 05/09/2018 [...] 08/01/2008 Overview: Study Titile: Event Registry Project #[id number] PI: Rachna Manley MD Please call [phone] with study related questions [employer] Other*[id number] 200611/16/2016 Overview: Study Title: Genomic Markers for Patients with Cardiovascular Disease Project # [id number] Soda Tester: Rachna Manley MD [phone] Type 2 diabetes mellitus wit h hemoglobin A1c goal of less than 7.0% 11/15/2005 08/07/2009 Overview: Per Diabetes Taxonomy. ICD-10 update of inactive term Spondylolisthesis 05/11/2004 12/30/2021 HTN, goal below 140/90 12/08/2000 0 Overview: Per HTN Taxonomy. S/P total knee replacement, left 04/05/2023 Erosive osteoarthritis of both hands 04/05/2023 documented as of this encounter (statuses as of 06/07/2023) Immunizations Name Administration Dates Next Due COVID-19 mRNA, LNP-s, No Pre serve, 2-Dose Series (1SDK) 10/06/2021,01/05/2021,12/09/2020 COVID-19, LNP-s, No Preserve , Angus-sucrose, [...] Sign Reading Time Taken Comments Blood Pressure 103/46 06/07/2023 10:59 AM EDT Pulse 66 06/07/2023 10:59 AM EDT Temperature 36.1 C (97 F) 06/07/2023 10:59 AM EDT Respiratory Rate 16 06/07/2023 10:59 AM EDT Oxygen Saturation 95% 06/07/2023 10:59 AM EDT Inhaled Oxygen Concentration - - Weight 90 kg (198 lb 6.4 oz) 06/02/2023 1:58 PM EDT Height 167 cm (5' 5.75") 06/02/2023 1:58 PM EDT Body Mass Index 32.27 06/02/2023 1:58 PM EDT documented in this encounter H&P Notes * Adryan Don MD - 06/07/2023 10:13 AM EDT Endoscopy Pre-Procedure Assessment Name: Zaina London Date: 06/07/2023 Time: 10:13 AM Procedure(s): Colonoscopy; with Indication(s) of average risk screening Endoscopy Pre-Procedure Assessment: Prior to the procedure, the patient is identified. The patient's history, medications and allergieshave been reviewed. The patient is competent. The risks and benefits of the proposed procedure and the planned sedation have been discussed with the patient. All questions have been answered and informed consent for the procedure has been obtained. Prior to Admission medications Medication Sig Last Dose Discont. Vitamin B-12 TR 2000 MCG Oral Tablet Extended Release (Cyanocobalamin ER) Take by mouth daily. Unknown Isosorbide Mononitrate ER 30 MG Oral Tablet Extended Release 24 Hour (Imdur) TAKE 1 TABLET BY MOUTHEVERY MORNING 06/06/2023 Gabapentin 300 MG Oral Capsule (Neurontin) TAKE 1 CAPSULE BY MOUTH EVERY MORNING AND 2 CAPSULES EVERY EVENING 06/05/2023 oxyCODONE HCl 5 MG Oral Tablet (Oxy IR) Take 1 Tablet by mouth every 8 hours as needed for Pain, Severe. 06/06/2023 traMADol HCl ER 100 MG Oral Tablet Extended Release 24 Hour (Ultram ER) Take 1 Tablet by mouth in the morning and 1 Tablet before bedtime. 06/06/2023 Prasugrel HCl 10 MG Oral Tablet (Effient) TAKE 1 TABLET BY MOUTH EVERY MORNING 06/05/2023 Citalopram Hydrobromide 20 MG Oral Tablet (CeleXA) Take 1/2 tablet by mouth daily for 4 weeks then take 1 tablet by mouth daily. 06/06/2023 Omeprazole 40 MG Oral Capsule Delayed Release (PriLOSEC) TAKE 1 CAPSULE BY MOUTH EVERY DAY 1 HOUR BEFORE THE FIRST MEAL OF THE DAY 06/06/2023 Nystatin 202379 UNIT/GM External Cream Apply topically to affected area 2 times a day. Apply to vulva 2 times a day Patient taking differently: Apply topically to affected area as needed. Apply to vulva 2 times a day Past Week NovoLOG FlexPen 100 UNIT/ML Subcutaneous Solution Pen-injector INJECT 8-12 UNITS PRIOR TO EACH MEAL-EXTRA IF NEEDED BASED ON BLOOD SUGAR 06/05/2023 Rosuvastatin Calcium 40 MG Oral Tablet (Crestor) TAKE 1 TABLET BY MOUTH EVERY DAY Patient taking differently: Take 1 Tablet by mouth every evening. 06/06/2023 Lisinopril 10 MG Oral Tablet (Prinivil) TAKE 1 TABLET BY MOUTH EVERY DAY Patient taking differently: Take 1 Tablet by mouth every evening. 06/06/2023 NovoLIN N 100 UNIT/ML Subcutaneous Suspension (insulin isophane human) INJECT 40 UNITS SUBCUTANEOUSLY (UNDER THE SKIN) BEFORE BREAKFAST AND INJECT 40 UNITS BEFORE SUPPER 06/05/2023 Famotidine 20 MG Oral Tablet (Pepcid) Take by mouth 1 Tablet before bedtime. 06/06/2023 Furosemide 20 MG Oral Tablet (Lasix) Take 40 mg by mouth on Mondays, Wednesdays, and Fridays. Take 20 mg by mouth all other days of the week. 06/06/2023 amLODIPine Besylate 5 MG Oral Tablet (Norvasc) TAKE 1 TABLET BY MOUTH EVERY DAY Patient taking differently: Take 1 Tablet by mouth every evening. 06/06/2023 Metoprolol Succinate ER 100 MG Oral Tablet Extended Release 24 Hour (toPROL XL) TAKE 1 TABLET BY MOUTH EVERY EVENING 06/06/2023 predniSONE 5 MG Oral Tablet (Deltasone) TAKE 1 TABLET BY MOUTH EVERY DAY DIRECTED 06/06/2023 Probiotic Daily Oral Capsule Take by mouth 1 Capsule in the morning. 06/05/2023 Diclofenac Sodium (REXAPHENAC) 1 % CREA Place topically on the skin 4 times a day as needed for Pain. Apply to toes Past Week ASPIRIN 81 MG PO TABS one tab by mouth daily 06/06/2023 Estradiol 0.1 MG/GM Vaginal Cream (Estrace) To vulva daily for 4 weeks and then 2 times a week Patient not taking: Reported on 06/02/2023 Not Taking traMADol HCl 50 MG Oral Tablet (Ultram) Take 2 Tablets by mouth in the morning and 2 Tablets in theevening. For pain, in addition to EX release. Patient not taking: Reported on 06/02/2023 Not Taking Semaglutide(0.25 or 0.5MG/DOS) 2 MG/3ML Solution Pen-injector (Ozempic) Inject 0.25 mg weekly for 4weeks and then 0.50 mg weekly Patient not taking: Reported on 04/20/2023 Not Taking PEG 2667-XQx-MiYbc-NaCl-NaSulf 236 GM Oral Solution Reconstituted Please take according to Colonoscopy prep instructions. BD Insulin Syringe Ultrafine 31G X 15/64" 0.5 ML (Insulin Syringe-Needle U-100) Use with insulin twice daily as directed. E11.9 Docusate Sodium 50 MG Oral Capsule (Colace) Take 3 Capsules by mouth as needed for Constipation. Patient not taking: Reported on 06/02/2023 Not Taking Nitroglycerin 0.4 MG Sublingual Tablet Sublingual (Nitrostat) Place 1 Tab under the tongue every 5 minutes as needed for Pain, Chest. Up to 3 doses in 15 minutes. Patient not taking: Reported on 06/02/2023 Not Taking Glucose Blood (ONETOUCH ULTRA BLUE) STRP TEST FOUR TIMES DAILY AND UP TO 8 TIMES DAILY IF NEEDED FOR FLUCTUATING SUGARS E11.9 ONETOUCH LANCETS MISC Use once daily to test blood sugar DX E11.9 ONE TOUCH GLUCOSE MONITOR KIT use daily Review of patient's allergies indicates: Allergen Reactions Niacin Other reaction(s): HOT/BURNING FEELING Iodinated Contrast Media Itching Januvia [Sitagliptin Phosphate] Other (Please comment) pancreatitis BP 131/48 | Pulse 49 | Temp 36.1 C (97 F) (Tympanic) | Resp 14 | Ht 1.67 m (5' 5.75") | Wt 90 kg (198 lb 6.4 oz) | LMP 06/21/2003 | SpO2 99% | BMI 32.27 kg/m | BSA 2.04 m Physical Exam: Mental Status Examination: alert and oriented. Airway Examination: normal oropharyngeal airway and neck mobility. Respiratory Examination: clear to auscultation. CV Examination: normal. ASA Grade: III - A patient with severe systemic disease. Abdomen: negative This patient has undergone a preprocedural evaluation. A determination has been made to proceed with the planned procedure under [facility] [place] procedural guidelines and the CMS Non-Emergent, Elective Medical Services and Treatment Recommendations (published on 01-15-20). The community and hospital prevalence of COVID-19 has been discussed as well as this patient's specific risks associated with SARS-CoV-19 infection. Based upon the clinical acuity and patient-specific care considerations, this procedure is deemed a Tier II - Intermediate acuity treatment or service with either progression or the threat of progressive disease related to the delay in treatment. Not providing the service has the potential for increasing morbidity or mortality. After reviewing the risks and benefits, the patient is deemed in satisfactory condition to undergo the procedure. The anesthesia plan is to use general anesthesia. Adryan Don MD 06/07/2023 documented in this encounter Procedure Notes * Bartolome Villa, DO - 06/07/2023 10:17 AM EDTAssociated Order(s): COLONOSCOPY [facility] Patient Name: Zaina London Procedure Date: 06/07/2023 10:17 AM Date of : 1950 Admit Type: Outpatient Note Status: Finalized Date of : 1950 Admit Type: Outpatient Age: 72 Room: Endo 3 Gender: Female Note Status: Finalized Procedure: Colonoscopy Indications: Screening for colorectal malignant neoplasm Providers: Adryan Don MD (Doctor) Referring MD: Bartolome Villa (Referring MD) Medicines: See the Anesthesia note for documentation of the administered medications Complications: No immediate complications. Procedure: Pre-Anesthesia Assessment: - ASA Grade Assessment: II - A patient with mild systemic disease. - Prior to the procedure, a History and Physical was performed, and patient medication allergies have been reviewed. The patient's tolerance of previous anesthesia has been reviewed. - Respiratory Examination: clear to auscultation. - CV Examination: normal. - The risks and benefits of the procedure and the sedation options and risks were discussed with the patient. All questions were answered and informed consent was obtained. - Patient identification and proposed procedure were verified prior to the procedure by the physician, the nurse and the industrial truck driver. The procedure was verified in the pre-procedure area in the procedure room. - The medication list for this patient has been reviewed prior to the procedure and has been determined that the patient may proceed with the planned study. Any medication changes made as a result of the findings of this procedure have been discussed with the patient and/or architectural representative at the time of discharge from the facility. After I obtained informed consent, the scope was passed under direct vision. All instruments were visually inspected immediately before and after removal from the patient to ensure they are fully intact. Throughout the procedure, the patient's blood pressure, pulse, and oxygen saturations were monitored continuously. The colonoscopy was performed without difficulty. The patient tolerated the procedure well. The quality of the bowel preparation was good. The [id number] Colonoscope ([id number]) was introduced through the anus and advanced to the terminal ileum. Findings & Specimens: The perianal and digital rectal examinations were normal. A 10 mm polyp was found in the rectum. The polyp was sessile. The polyp was removed with a hot snare. Resection and retrieval were complete. Multiple small and large-mouthed diverticula were found in the sigmoid colon. The exam was otherwise without abnormality. Impression: - One 10 mm polyp in the rectum, removed with a hot snare. Resected and retrieved. - Diverticulosis in the sigmoid colon. - The examination was otherwise normal. Recommendation: - Discharge patient to home. Repeat exam in 3 years. Adryan Don MD 06/07/2023 10:56:58 AM This report has been signed electronically. documented in this encounter Nursing Notes * Billie Garcia RN - 06/07/2023 11:18 AM EDT Patient is alert, pain free, passing flatus and tolerating po fluids prior to discharge. Patient has been visited by Dr. Don. Patient has received and demonstrates understanding of discharge instructions. Patient is transported via w/c to private auto accompanied by endo staff. * Fan Dueñas RN - 06/07/2023 10:49 AM EDT Specimen(s) and location(s) verified with physician post procedure 10:49 AM Fan Dueñas RN. Mid abdominal pressure given per Dr. Don to assist with scope advancement. Pt tolerated well See anesthesia record for medication administered during procedure. Fan Dueñas RN Pre cleaning of scope at the bedside started by technician trainee. * Jaleesa Brasher RN - 06/07/2023 9:30 AM EDT Pt prepped and ready for anesthesia to assess. Call grewal in reach. * Jaleesa Brasher RN - 06/07/2023 9:15 AM EDT The following pt discharge instructions reviewed with pt prior to prodedure: No driving today. No alcohol today. No signing of legal documents. Rest as much as possible today and can return to normal activities tomorrow. No operating any heavy equipment today. Diet as tolerated. Pt verbalized understanding. documented in this encounter Plan of Treatment Upcoming Encounters Date Type Specialty Care Team Description 06/08/2023 Therapy Psychology Beni Mares, PhD [address] [facility] [place] [address] 06/17/2023 [facility] Visit [facility] [place] [address] 07/28/2023 Office Visit Family Medicine Bartolome Villa DO [address] [facility] [place] [address] 09/23/2023 Nurse Only Ancillary [facility]hill[facility], Nurse [facility] [place] [address] [place] [address] 10/24/2023 Office Visit Neurology Izzy Hughes MD [address] [facility] [place] [address] 11/18/2023 Office Visit Cardiology Chema Hayden MD [address] [place] [address] 02/23/2024 Office Visit Rheumatology Beni Fernandez MD [address] [place] [address] [place] [address] Pending Results Name Type Priority Associated Diagnoses Date /Time SURGICAL PATHOLOGY Pathology Routine Special screening for malignant neoplasms, colon 06/07/2023 10:47 AM EDT Scheduled Orders Name Type Priority Associated Diagnoses Order Schedule GLUCOSE METER, POINT OF CARE (COMMUNICATION ORDER) Point of Care Testing Routine Perform Now for 1 Occurrences starting 06/07/2023 until 06/07/2023 SURGICAL PATHOLOGY Pathology Routine Special screening for malignant neoplasms, colon Release Upon Ordering for 1 Occurrences starting 06/07/2023, 1 completed Scheduled Procedures Name Priority Associated Diagnoses Date/Ti me COLONOSCOPY FLEXIBLE PROXIMAL DIAGNOSTIC Special screening for malignant neoplasms, colon 06/07/2023 10:16 AM EDT Health Maintenance Due Date Last Done Comments DIABETES-FOOT EXAM 06/03/2022 06/03/2021, 0 03/25/2020, 04/03/2019, Additional history exists Influenza Vaccine (FLU shot) (#1) 2023 07/16/2022, 06/30/2021, 06/10/2020, Additional history exists DIABETES-EYE EXAM 08/19/2023 08/19/2022, , 11/27/2019, Additional history exists CKD HGB USE SMARTSET 88400 09/09/202309/09, 09/09/2022, 06/04/2022, Additional history exists Depression Screening, Annual for Pts 12 and Over 09/22/2023 09/22/2022 GFR 10/21/2023 04/20/2023, 05/11, 11/17/2021, Additional history exists HbA1c 10/21/2023 04/20/2023, 05/11, 12/07/2021, Additional history exists Mammogram 04/08/2024 04/08/2023, 03/11, 01/29/2021, Additional history exists Albumin/Creatinine Ratio 04/20/2024 023, 03/25/2022, 10/30/2020, Additional history exists CKD PHOS USE SMARTSET 41721 04/20/2024 0711/2022, 11/17/2021, 03/26/2020, Additional history exists COLONOSCOPY-EVERY 2 [...] exists LUNG CANCER SCREENING - USE SMARTSET 60464 Completed 02/15/2023, 04/06/2022, 05/09/2020, Additional history exists [...] Not on filedocumented as of this encounter Procedures Procedure Name Priority Date/Time Associated Diagnosis Comments COLONOSCOPY 06/07/2023 10:17 AM EDT GLUCOSE METER, POINT OF CARE BENITEZ 06/07/2023 9:11 AM EDT documented in this encounter Results * COLONOSCOPY (06/07/2023 10:17 AM EDT) 06/07/2023 10:1 7 AM EDT Procedure Note Bartolome Villa, - 06/07/2023 10:17 AM EDT [facility] Patient Name: Zaina London Procedure Date: 06/07/2023 10:17 AM Date of : 1950 Admit Type: Outpatient Note Status:Finalized Date of : 1950 Admit Type: Outpatient Age: 72 Room: [facility] 3 Gender: Female Note Status: Finalized Procedure: Colonoscopy Indications: Screening for colorectal malignant neoplasm Providers: Adryan Don MD (Doctor) Referring MD: Bartolome Villa (Referring MD) Medicines: See the Anesthesia note for documentation of theadministered medications Complications: No immediate complications. Procedure: Pre-Anesthesia Assessment: - ASA Grade Assessment: II - A patient with mildsystemic disease. - Prior to the procedure, a History and Physicalwas performed, and patient medication allergies have been reviewed. Thepatient's tolerance of previous anesthesia has been reviewed. - Respiratory Examination: clear to auscultation. - CV Examination: normal. - The risks and benefits of the procedure and thesedation options and risks were discussed with the patient. All questions wereanswered and informed consent was obtained. - Patient identification and proposed procedurewere verified prior to the procedure by the physician, the nurse and the industrial truck driver.The procedure was verified in the pre-procedure area in the procedure room. - The medication list for this patient has beenreviewed prior to the procedure and has been determined that the patient may proceedwith the planned study. Any medication changes made as a result of the findingsof this procedure have been discussed with the patient and/or architectural representative atthe time of discharge from the facility. After I obtained informed consent, the scope waspassed under direct vision. All instruments were visually inspected immediatelybefore and after removal from the patient to ensure they are fully intact. Throughout the procedure, the patient's bloodpressure, pulse, and oxygen saturations were monitored continuously. The colonoscopy wasperformed without difficulty. The patient tolerated the procedure well. The qualityof the bowel preparation was good. The [id number] Colonoscope ([id number]) was introducedthrough the anus and advanced to the terminal ileum. Findings & Specimens: The perianal and digital rectal examinations were normal. A 10 mm polyp was found in the rectum. The polyp was sessile. Thepolyp was removed with a hot snare. Resection and retrieval were complete. Multiple small and large-mouthed diverticula were found in thesigmoid colon. The exam was otherwise without abnormality. Impression: - One 10 mm polyp in the rectum, removed with a hotsnare. Resected and retrieved. - Diverticulosis in the sigmoid colon. - The examination was otherwise normal. Recommendation: - Discharge patient to home. Repeat exam in 3years. Adryan Don MD 06/07/2023 10:56:58 AM This report has been signed electronically. Bartolome Villa DO GASTRO LOWER * (ABNORMAL) GLUCOSE METER, POINT OF CARE (06/07/2023 9:11 AM EDT) Glucose Meter 183(H) 70 - 120 mg/dL 06/07/2023 9:36 AM EDT [facility] 57-00 Blood Whole blood specimen / Unknown 06/07/2023 9:11 AM EDT 06/07/2023 9:36 AM EDT Adryan Don MD LAB POINT OF CA RE TEST DOCKED DEVICE UNSOLICITED RESULTS [facility] [address] [place] [address] documented in this encounter Visit Diagnoses Diagnosis Special screening for malignant neoplasms, colon documented in this encounter Administered Medications Inactive Administered Medications - up to 3 most recent administrations Medication Order MAR Action Action Date Dose Rate Site Acetaminophen (Tylenol) tab 650 mg 650 mg, Oral, PRN Pain, Mild, Starting on Tue06/07/23 at 1050, Until Tue06/07/23 at 1519, For 1 dose, Maximum of 4 grams (4000 mg) per day., Post-op isolyte-S pH 7.4 infusion Intravenous, at 75 mL/hr, for Outpatient patient Plasma-LYTE 148, isolyte-S, and isolyte-S pH 7.4 are considered equivalent - including for MAR barcode scanning., CONTINUOUS, Starting on Tue06/07/23 at 0945, Until Tue06/07/23 at 1519, Pre-Op Restarted 06/07/2023 10:23 AM EDT Continue from Pre-Op 06/07/2023 10:14 AM EDT 75 mL/hr New Bag 06/07/2023 9:30 AM EDT 75 mL/hr 75 mL/hr documented in this encounter Active and Recently Administered Medications Times are shown in EDT. Continuous Medication Order 06/05/2023 06/06/2023 06/07/2023 isolyte-S pH 7.4 infusion Intravenous, at 75 mL/hr, for Outpatient patient Plasma-LYTE 148, isolyte-S, and isolyte-S pH 7.4 are considered equivalent - including for MAR barcode scanning., CONTINUOUS, Starting on Tue06/07/23 at 0945, Until Tue06/07/23 at 1519, Pre-Op 0930 (New Bag - Prov ider: Jaleesa Brasher RN)1014 (Continue from Pre-Op - Provider: Flako Torres CRNA)1022 (Paused - Provider: Flako Torres CRNA - Comment: Switch to gravity)1023 (Restarted - Provider: Flako Torres CRNA)1045 (Anes Intra-Op Fluid - Provider: Kirill Elena CRNA) PRN Medication Order 06/05/2023 06/06/2023 06/07/2023 Acetaminophen (Tylenol) tab 650 mg 650 mg, Oral, PRN Pain, Mild, Starting on Tue06/07/23 at 1050, Until Tue06/07/23 at 1519, For 1 dose, Maximum of 4 grams (4000 mg) per day., Post-op documented in this encounter Advance Directives Latest Code Status on File Code Status Date Activated Date Inactivated Comments Full Code 07/04/2018 11:03 AM 07/04/2018 5:07 PM This order reflects the patients wishes and were consensually agreed upon. Care Teams Meatman Relationship Specialty Start Date End Date Bartolome Villa DO [address] [place] [address] PCP - General Family Medicine 02/16/23 documented as of this encounter
--- OUTSIDE RECORDS SUMMARY | 2023-10-27 07:05 | External Medical Summary | Summary of Care ---
Author Name Unknown Organization [facility] Address [address] [place] [address] Phone [phone] Care Team Providers Care Supply Officer Name Role Phone Bartolome Villa Primary Care Provider Reason for Visit * Reason Comments Pain Mouth Encounter Details Date Type Department Care Team Description 06/30/2023 Convenient Care Visit [facility] [address] [place] [address] Diaz Najera PA-C [address] [place] [address] Wellness examination*; Mouth sore Allergies Active Allergy Reactions Severity Noted Date Comments Iodinated Contrast Media Itching 08/18/2011 Sitagliptin Phosphate Other (Please comment) 03/07/2013 pancreatitis Niacin High 06/14/2019 Other reaction(s): HOT/BURNING FEELING documented as of this encounter (statuses as of 06/30/2023) Medications Medication Sig Dispensed Refills Start Date [...] 100 g 11 05/09/2018 Active Glucose Blood (Boom.fmTOUCH ULTRA BLUE) STRPIndications:Typ e 2 diabetes mellitus [...] mg Oral QPM-1999, Reported on 06/02/2023 PEG 3565-VXn-NhEnn-NaCl -NaSulf 236 GM Oral Solution Reconstituted Please take according to Colonoscopy prep instructions. 4000 mL 0 01/21/2023 Active NovoLOG FlexPen 100 UNIT/ML Subcutaneous Solution Pen-injector INJECT 8-12 UNITS PRIOR TO EACH MEAL -EXTRA IF NEEDED BASED ON BLOOD SUGAR 30 mL 1 02/06/2023 Active Nystatin 565876 UNIT/GM External Cream Apply topically to affected [...] Oral Tablet Extended Release 24 Hour (Ultram ER)Indications:[place] leonor osteoarthritis of both hands Take 1 Tablet by mouth in the morning and 1 Tablet before bedtime. 60 Tablet 0 06/20/2023 Active oxyCODONE HCl 5 MG Oral Tablet (Oxy IR) Take 1 Tablet by mouth every 8 hours as needed for Pain, Severe. 20 Tablet 0 06/20/2023 Active documented as of this encounter (statuses as of 06/30/2023) Active Problems Problem Noted Date Moderate aortic [...] 12/15/2015 Overview: Per HTN Protocol #27. Old PA (myocardial infarction) 5 Dyslipidemia 11/15/2012 Peripheral vascular disease 07/30/2009 S/P angioplasty with stent 08/09/2007 Bicuspid aortic valve Generalized osteoarthritis Fibromyalgia documented as of this encounter (statuses as of 06/30/2023) Resolved Problems Problem Noted Date Resolved Date [...] program 02/05/2019 05/12/2020 Overview: DO NOT DELETE [facility] DETECT Study: Project # [id number], Title Officer: Jona Mckeon, PhD. SUMMARY: Goal: Establish test [...] contact study staff at ; after hours Title Officer via the [facility] line camera operator . Please contact study team before resolving/deleting from patients problem list. Study phone number: [phone]. Diagnosis changed due to Research Module. Go to Snapshot for study details. Encounter for examination fo r normal comparison and control in clinical research program 02/05/2019 06/10/2022 Overview: DO NOT DELETE - [facility] Study: Project # [id number], Title Officer: Vipin Carvalho, MS, MPH. SUMMARY: Goal: Establish [...] contact study staff at ; after hours Title Officer via the [facility] line camera operator . - Please contact study team before resolving/deleting from patients problem list. Study phone number: [phone]. Diagnosis changed due to Research Module. Go [...] 12/30/2021 Hiatal hernia 06/21/2018 12/30/2021 History of PA (myocardial infarction) 05/09/2018 12/30/2021 Vulvar lesion 05/09/2018 [...] 08/01/2008 Overview: Study Titile: Event Registry Project #[id number] PI: Rachna Manley MD Please call [phone] with study related questions [employer] Other*[id number] 200611/16/2016 Overview: Study Title: Genomic Markers for Patients with Cardiovascular Disease Project # [id number] Title Officer: Rachna Manley MD [phone] Type 2 diabetes mellitus wit h hemoglobin A1c goal of less than 7.0% 11/15/2005 08/07/2009 Overview: Per Diabetes Taxonomy. ICD-10 update of inactive term Spondylolisthesis 05/11/2004 12/30/2021 HTN, goal below 140/90 12/08/2000 0 Overview: Per HTN Taxonomy. S/P total knee replacement, left 04/05/2023 Erosive osteoarthritis of both hands 04/05/2023 documented as of this encounter (statuses as of 06/30/2023) Immunizations Name Administration Dates Next Due COVID-19 [...] Sign Reading Time Taken Comments Blood Pressure 126/58 06/30/2023 10:48 AM EDT Pulse 59 06/30/2023 10:48 AM EDT Temperature 35.9 C (96.6 F) 06/30/2023 10:48 AM E DT Respiratory Rate 16 06/30/2023 10:48 AM EDT Oxygen Saturation 96% 06/30/2023 10:48 AM EDT Inhaled Oxygen Concentration - - Weight 89.9 kg (198 lb 3.2 oz) 06/30/2023 10:48 AM EDT Height 166.4 cm (5' 5.5") 06/30/2023 10:48 AM ED T Body Mass Index 32.48 06/30/2023 10:48 AM EDT documented in this encounter Progress Notes * Diaz Najera PA-C - 06/30/2023 11:12 AM EDT Images from the original note were not included. Convenient Care Basic Exam HPI: Zaina London is a 72 year old year old female who presents for evaluation of mouth sore onthe roof of the mouth. Patient states she bit into a cracker (in a salad medley) where after a first bite she had pain in the roof of her mouth. Her son was concerned for thrush as it appeared to have "pus". Patient does not wear dentures, use an inhaler or denies any recent dental procedure. Review of Systems HENT: Positive for mouth sores. PAST MEDICAL HISTORY: Past Medical History: Diagnosis Date ASCVD (arteriosclerotic cardiovascular disease) Bicuspid aortic valve Controlled substance agreement signed 07/20/2016 DM type 2, goal A1c below 7 Dyslipidemia, goal LDL below 70 11/15/2012 Fibromyalgia Generalized OA Heart failure, systolic, due to CAD ([facility]) 12/04/2015 History of PA (myocardial infarction) 05/09/2018 HTN, goal below 140/90 ILD (interstitial lung disease) ([facility]) Kidney disease, chronic, stage III (GFR 30-59 ml/min) ([facility]) 01/20/2015 Per CKD protocol #1 Lung nodule PA (myocardial infarction) ([facility]) 2006 PA (myocardial infarction) ([facility]) 2010 Obesity, Class II, BMI 35-39.9, isolated (see actual BMI) 12/30/2021 Osteoarthritis, hand Peripheral vascular disease ([facility]) 07/30/2009 S/P angioplasty with stent 08/09/2007 S/P total knee replacement, left Spondylolisthesis 05/11/2004 ST elevation PA (STEMI) ([facility]) 04/21/2015 Past Surgical History: Procedure Laterality Date ARTHROPLASTY KNEE TOTAL Left 08/2015 CARDIAC CATH INJ. FOR CORONARY ANGIOGRAPHY 2006 2 cypher drug eluding stents CARDIAC DRUG [facility]ENT [facility], ADD'L 2014 2 LENA stents placed CARDIAC DRUG [facility], SINGLE 2010 COLONOSCOPY, DIAGNOSTIC (RECTUM) 01/02/2014 COLONOSCOPY FLEXIBLE PROXIMAL DIAGNOSTIC performed by Armando Crandall MD at ENDOSCOPY [facility] COLONOSCOPY, DIAGNOSTIC (RECTUM) 08/29/2019 normal,poor prep-COLONOSCOPY FLEXIBLE PROXIMAL DIAGNOSTIC performed by Brenda Nolasco MD at ENDOSCOPY [facility] COLONOSCOPY, DIAGNOSTIC (RECTUM) 06/07/2023 diverticulosis/biopsies show tubulovillous adenoma/recall 3 years/COLONOSCOPY FLEXIBLE PROXIMAL DIAGNOSTIC performed by Adryan Don MD at ENDOSCOPY [facility] EGD, FLEXIBLE, DIAGNOSTIC 04/06/2016 mild inflammation/ESOPHAGOGASTRODUODENOSCOPY (EGD), FLEXIBLE, TRANSORAL, DIAGNOSTIC performed by Zara Woods DO at ENDOSCOPY [facility] LASERING OF SECONDARY CATARACT Left 01/06/2015 YAG LASER OS, DR. YO ALFARO LASERING OF SECONDARY CATARACT Right 01/13/2015 YAG LASER OD, DR. YO ALFARO LIGATE/CUT OVIDUCT(S) PELVIC EXAM UNDER ANESTHESIA, NOT LOCAL N/A 07/04/2018 PELVIC EXAMINATION UNDER ANESTHESIA performed by Corie Villa DO at OR [facility] REMOVAL OF APPENDIX REMOVAL OF VULVA, PARTIAL N/A 07/04/2018 VULVECTOMY SIMPLE PARTIAL performed by Corie Villa DO at OR [facility] SPINE SURGERY PROCEDURE NEC 06/2019 Social History Tobacco Use Smoking status: Former Packs/day: 1.00 Years: 40.00 Pack years: 40.00 Types: Cigarettes Quit date: 05/28/2015 Years since quittin.0 Smokeless tobacco: Never Substance Use Topics Alcohol use: Yes Comment: rare Vaping/E-Cigarette Use Vaping/E-Cigarette Use Never User Vaping/E-Cigarette Substances Vaping/E-Cigarette Devices Patient Active Problem List Diagnosis Code S/P angioplasty with stent Z95.820 Peripheral vascular disease (HCC) I73.9 Dyslipidemia E78.5 Old PA (myocardial infarction) I25.2 HTN, goal below 130/80 I10 Bicuspid aortic valve Q23.1 Generalized osteoarthritis M15.9 Type 2 diabetes mellitus with hemoglobin A1c goal of less than 8.0% ([facility]) E11.9 Coronary artery disease involving tejon coronary artery of tejon heart without angina pectoris I25.10 Chronic systolic heart failure ([facility]) I50.22 Fibromyalgia M79.7 Chronic kidney disease, stage 3b ([facility]) N18.32 VINCE (obstructive sleep apnea) G47.33 Moderate aortic valve stenosis I35.0 Review of patient's allergies indicates: Allergen Reactions Niacin Other reaction(s): HOT/BURNING FEELING Iodinated Contrast Media Itching Januvia [Sitagliptin Phosphate] Other (Please comment) pancreatitis Current Outpatient Medications Medication Sig Dispense Refill [...] FOR FLUCTUATING SUGARS E11.9 600 Strip 0 Probiotic Daily Oral Capsule Take by mouth 1 Capsule in the morning. predniSONE 5 MG Oral Tablet (Deltasone) TAKE [...] ON BLOOD SUGAR 30 mL 1 Nystatin 603781 UNIT/GM External Cream Apply topically to affected [...] needed for Pain, Severe. 20 Tablet 0 Nitroglycerin 0.4 MG Sublingual Tablet Sublingual (Nitrostat) Place 1 Tab under the tongue every 5 minutes as needed for Pain, Chest. Up to 3 doses in 15 minutes. (Patient not taking: Reported on 06/02/2023) 25 Tab 11 Docusate Sodium 50 MG Oral Capsule (Colace) Take 3 Capsules by mouth as needed for Constipation. (Patient not taking: Reported on 06/02/2023) PEG 8856-QUl-ZhKvf-NaCl-NaSulf 236 GM Oral Solution Reconstituted Please take according to Colonoscopy prep instructions. 4000 mL 0 No current facility-administered medications for this visit. Nursing Notes and Vital Signs reviewed. BP 126/58 (BP Site: Left Arm, BP Position: Sitting, BP Cuff Size: Regular) | Pulse 59 | Temp 35.9 C (96.6 F) (Tympanic) | Resp 16 | Ht 1.664 m (5' 5.5") | Wt 89.9 kg (198 lb 3.2 oz) | LMP 06/21/2003 | SpO2 96% | BMI 32.48 kg/m | BSA 2.04 m Physical Exam Vitals and nursing note reviewed. HENT: Head: Normocephalic. Mouth/Throat: Comments: No white plague noted. Neurological: Mental Status: She is alert. Psychiatric: Behavior: Behavior is cooperative. ASSESSMENT: Wellness examination (Primary) Mouth sore Plan: Patient reassure it was not thrust and told to take an antimicrobial mouthwash. Patient goalsfor plan of care were discussed Follow up with PCP or seek emergency medical attention as needed if symptoms worsen, evolve, or fail to improve. Patient demonstrates understanding of the visit, course of treatment, and instructions. All questions were answered and patient agrees to plan of care. Diaz Najera PA-C [facility] [address] [facility] [address] documented in this encounter Nursing Notes * Jeana Hawkins LPN - 06/30/2023 10:53 AM EDT Zaina London,is a 72 year old female, who presents to the walk in clinic today c/o pain to roofof mouth since last night. Did not use any OTC meds. documented in this encounter Plan of Treatment Upcoming Encounters Date Type Specialty Care Team Description 07/01/2023 Office Visit Neurology Izzy Hughes MD [address] [place] [address] 07/01/2023 Therapy Psychology Beni Mares, PhD [address] [place] [address] 07/28/2023 Office Visit Family Medicine Bartolome Villa DO [address] [place] [address] 09/16/2023 Office Visit [facility] [address] [place] [address] 09/23/2023 Nurse Only Ancillary [place], Annual Wellness [place] [address] [place] [address] 11/18/2023 Office Visit Cardiology Chema Hayden MD [address] [place] [address] 02/23/2024 Office Visit Rheumatology Beni Fernandez MD [address] [facility] [place] [address] Scheduled Procedures Name Priority Associated Diagnoses Date/Ti me COLONOSCOPY FLEXIBLE PROXIMA L DIAGNOSTIC Recall History of colonic polyps Health Maintenance Due Date Last Done Comments Diabetic Foot Exam 06/03/2022 06/03/2021, 0 03/25/2020, 04/03/2019, Additional history exists Influenza Vaccine (FLU shot) (#1) 2023 07/16/2022, 06/30/2021, 06/10/2020, Additional history exists DIABETES-EYE EXAM 08/19/2023 08/19/2022, , 11/27/2019, Additional history exists CKD HGB USE SMARTSET 56268 09/09/202309/09, 09/09/2022, 06/04/2022, Additional history exists Depression Screening 09/22/2023 09/22/2022 GFR 10/21/2023 04/20/2023, 05/11, 11/17/2021, Additional history exists HbA1c 10/21/2023 04/20/2023, 05/11, 12/07/2021, Additional history exists Mammogram 04/08/2024 04/08/2023, 03/11, 01/29/2021, Additional history exists Albumin/Creatinine Ratio 04/20/2024 023, 03/25/2022, 10/30/2020, Additional history exists CKD PHOS USE SMARTSET 60583 04/20/202404/09, 11/17/2021, 03/26/2020, Additional history exists COLONOSCOPY-EVERY [...] exists LUNG CANCER SCREENING - USE SMARTSET 36621 Completed 02/15/2023, 04/06/2022, 05/09/2020, Additional history exists [...] as of this encounter Visit Diagnoses Diagnosis Wellness examination- Primary Mouth sore Other and unspecified diseases of the oral soft tissues documented in this encounter Advance Directives Latest Code Status on File Code Status Date Activated Date Inactivated Comments Full Code 07/04/2018 11:03 AM 07/04/2018 5:07 PM This order reflects the patients wishes and were consensually agreed upon. Care Teams Supply Officer Relationship Specialty Start Date End Date Bartolome Villa DO [address] [place] [address] PCP - General Family Medicine 02/16/23 documented as of this encounter
--- OUTSIDE RECORDS SUMMARY | 2023-10-27 07:05 | External Medical Summary | Summary of Care ---
Author Name Unknown Organization [facility] Address [address] [facility] [place] [address] Phone [phone] Care Team Providers Care Car Hiker Name Role Phone Bartolome Villa Primary Care Provider Reason for Visit * Reason Comments Outpatient Testing Encounter Details Date Type Department Care Team Description 07/01/2023 Laboratory [facility] [place] [address] [place] [address] [place], Lab Scenery [address] [place] [address] Elevated CK Allergies Active Allergy Reactions Severity Noted Date [...] 100 g 11 05/09/2018 Active Glucose Blood (Solar Capture TechnologiesUCH ULTRA BLUE) STRPIndications:Typ e 2 diabetes mellitus with hemoglobin A1c goal of less than 7.0% ([facility]) TEST FOUR TIMES DAILY AND [...] hemoglobin A1c goal of less than 7.0% ([facility]) Use with insulin twice daily [...] mg Oral QPM-1999, Reported on 06/02/2023 PEG 5662-JJa-NnIaz-NaCl -NaSulf 236 GM Oral Solution Reconstituted Please take according to Colonoscopy prep instructions. 4000 mL 0 01/21/2023 Active NovoLOG FlexPen 100 UNIT/ML Subcutaneous Solution Pen-injector INJECT 8-12 UNITS PRIOR TO EACH MEAL -EXTRA IF NEEDED BASED ON BLOOD SUGAR 30 mL 1 02/06/2023 Active Nystatin 975653 UNIT/GM External Cream Apply topically to affected [...] Oral Tablet Extended Release 24 Hour (Ultram ER)Indications:[place] leonor osteoarthritis of both hands Take 1 [...] CKD protocol Coronary artery disease invo lving [place] coronary artery of [place] heart without angina pectoris 02/13/2019 Chronic systolic heart failure 9 Type 2 diabetes mellitus with hemoglobin A1c goal of less than 8.0% 02/02/2019 HTN, goal below 130/80 12/15/2015 Overview: Per HTN Protocol #27. Old [place] (myocardial infarction) 5 Dyslipidemia 11/15/2012 Peripheral vascular [...] program 02/05/2019 05/12/2020 Overview: DO NOT DELETE [facility] DETECT Study: Project # [id number], Law Firm Consultant: Jona Mckeon, PhD. SUMMARY: Goal: Establish test [...] contact study staff at ; after hours Law Firm Consultant via the [facility] kraft mill operator . Please contact study team before resolving/deleting from patients problem list. Study phone number: [phone]. Diagnosis changed due to Research Module. Go to Snapshot for study details. Encounter for examination fo r normal comparison and control in clinical research program 02/05/2019 06/10/2022 Overview: DO NOT DELETE - [facility] DETECT Study: Project # [id number], Law Firm Consultant: Vipin Carvalho, MS, MPH. SUMMARY: Goal: Establish [...] contact study staff at ; after hours Law Firm Consultant via the [facility] kraft mill operator . - Please contact study team before resolving/deleting from patients problem list. Study phone number: [phone]. Diagnosis changed due to Research Module. Go to Loopt for study details. Type 2 diabetes mellitus wit h stage 3 chronic kidney disease, with long-term current use of insulin 02/02/2019 021 Overview: Per CKD protocol Hypertensive kidney disease with chronic kidney disease stage III 02/02/2019 03/20/2019 ADVANCE DIRECTIVE INFORMATION 01/03/2019 Overview: Information given at previous visit Depression 06/21/2018 12/30/2021 Hiatal hernia 06/21/2018 12/30/2021 History of [place] (myocardial infarction) 05/09/2018 12/30/2021 Vulvar lesion 05/09/2018 [...] 08/01/2008 Overview: Study Titile: Event Registry Project #[id number] PI: Rachna Manley MD Please call [phone] with study related questions [employer] Other*[id number] 200611/16/2016 Overview: Study Title: Genomic Markers for Patients with Cardiovascular Disease Project # [id number] Law Firm Consultant: Rachna Manley MD [phone] Type 2 diabetes mellitus wit h hemoglobin [...] 30 Mcg, IM, 12 yrs and above (PhaseRx) 07/13/2022 Pneumococcal Conjugate Vacc, 13 Valent (Prevnar) [...] 07/01/2023 Therapy Psychology Beni Mares, PhD [address] [facility] [place], [place] [address] Arrived 09/06/2023 Office Visit Family Medicine Bartolome Villa DO [address] [place] [address] 09/16/2023 Office Visit Pharmacy [facility] [address] [place] [address] 09/23/2023 Nurse Only Ancillary [facility], Nurse Annual Wellness [place] [address] [place] [address] 11/18/2023 Office Visit Cardiology Chema Hayden MD [address] [place] [address] 02/23/2024 Office Visit Rheumatology Beni Fernandez MD [address] [facility] [place] [address] Pending Results Name Type Priority Associated Diagnoses Date /Time CK Lab Routine Elevated CK 07/01/2023 9:31 AM EDT Scheduled Procedures Name [...] Additional history exists CKD HGB USE SMARTSET 96192 09/09/202309/09, 09/09/2022, 06/04/2022, Additional history exists Depression Screening 09/22/2023 09/22/2022 GFR 10/21/2023 04/20/2023, 05/11, 11/17/2021, Additional history exists HbA1c 10/21/2023 04/20/2023, 05/11, 12/07/2021, Additional history exists Mammogram 04/08/2024 04/08/2023, 03/11, 01/29/2021, Additional history exists Albumin/Creatinine Ratio 04/20/2024 023, 03/25/2022, 10/30/2020, Additional history exists CKD PHOS USE SMARTSET 74290 04/20/202404/09, 11/17/2021, 03/26/2020, Additional history exists COLONOSCOPY-EVERY [...] exists LUNG CANCER SCREENING - USE SMARTSET 72952 Completed 02/15/2023, 04/06/2022, 05/09/2020, Additional history exists [...] as of this encounter Visit Diagnoses Diagnosis Elevated CK Other nonspecific abnormal serum enzyme levels documented in this encounter Advance Directives Latest Code Status on File Code Status Date Activated Date Inactivated Comments Full Code 07/04/2018 11:03 AM 07/04/2018 5:07 PM This order reflects the patients wishes and were consensually agreed upon. Care Teams Car Hiker Relationship Specialty Start Date End Date Bartolome Vlila DO [address] [place] [address] PCP - General Family Medicine 02/16/23 documented as of this encounter
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
--- OUTSIDE RECORDS SUMMARY | 2023-10-27 07:05 | External Medical Summary ---
Author Name Unknown Address Unknown Organization K01:[facility] [address] [place] [address] Laboratory Report Ordering Provider Test Date Status FORTUNATO MILTON 07/01/2023 09:31:11 Final Observation Date Value Abnormality Reference (Units ) Status Ammonia 07/01/2023 09:31:11 16 11-35 (umo l/L) Final Performing Location [facility] - [address] [place] [address]
--- OUTSIDE RECORDS SUMMARY | 2023-10-27 07:06 | External Medical Summary | Summary of Care ---
Author Name Unknown Organization [facility] [address] [facility] [address] Phone [phone] Care Team Providers Care Wild Life Manager Name Role Phone Bartolome Villaирина Primary Care Provider Reason for Visit * Reason Onset Date Comments Test Results 05/03/2023 Encounter Details Date Type Department Care Team Description 05/03/2023 Telephone Cardiology, [facility] [address] [place] [address] Flako Gomez PA-C [address] [place] [address] Test Results Allergies Active Allergy Reactions Severity Noted Date Comments Iodinated Contrast Media Itching 08/18/2011 Sitagliptin Phosphate Other (Please comment) 03/07/2013 pancreatitis Niacin High 06/14/2019 Other reaction(s): HOT/BURNING FEELING documented as of this encounter (statuses as of 05/11/2023) Medications Medication Sig Dispensed Refills Start Date [...] 100 g 11 05/09/2018 Active Glucose Blood (SongzaUCH ULTRA BLUE) STRPIndications:Typ e 2 diabetes mellitus with hemoglobin A1c goal of less than 7.0% ([facility]) TEST FOUR TIMES DAILY AND UP TO 8 TIMES DAILY IF NEEDED FOR FLUCTUATING SUGARS E11.9 600 Strip 0 07/07/2018 Active Nitroglycerin 0.4 MG Sublingual Tablet Sublingual (Nitrostat)Indicati ons:Chest pain Place 1 Tab under the tongue every 5 minutes as needed for Pain, Chest. Up to 3 doses in 15 minutes. 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 [...] DAY 90 Tablet 3 12/06/2022 Active PEG 1239-RKx-BjQhk-NaCl -NaSulf 236 GM Oral Solution Reconstituted Please take according to Colonoscopy prep instructions. 4000 mL 0 01/21/2023 Active NovoLOG FlexPen 100 UNIT/ML Subcutaneous Solution Pen-injector INJECT 8-12 UNITS PRIOR TO EACH MEAL -EXTRA IF NEEDED BASED ON BLOOD SUGAR 30 mL 1 02/06/2023 Active oxyCODONE HCl 5 MG Oral Tablet (Oxy IR) Take 1 Tablet by mouth every 8 hours as needed for Pain, Severe. 20 Tablet 0 04/06/2023 Active Nystatin 978992 UNIT/GM External Cream Apply topically to affected [...] in addition to EX release 0 Active traMADol HCl ER 100 MG Oral Tablet Extended Release 24 Hour (Ultram ER)Indications:[place] leonor osteoarthritis of both hands Take 1 Tablet by mouth in the morning and 1 Tablet before bedtime. 60 Tablet 0 04/25/2023 Active Citalopram Hydrobromide 20 MG Oral Tablet (CeleXA) Take 1/2 tablet by mouth daily for 4 weeks then take 1 tablet by mouth daily. 30 Tablet 11 04/25/2023 Active Prasugrel HCl 10 MG Oral Tablet (Effient) TAKE 1 TABLET BY MOUTH EVERY MORNING 90 Tablet 3 04/30/2023 Active documented as of this encounter (statuses as of 05/11/2023) Active Problems Problem Noted Date Moderate aortic valve stenosis VINCE (obstructive sleep apnea) 08/20/2021 Chronic kidney disease, stage 3b 021 Overview: Per CKD protocol Coronary artery disease invo lving [place] coronary artery of [place] heart without angina pectoris 02/13/2019 Chronic systolic heart failure 9 Type 2 diabetes mellitus with hemoglobin A1c goal of less than 8.0% 02/02/2019 HTN, goal below 130/80 12/15/2015 Overview: Per HTN Protocol #27. Old IN (myocardial infarction) 5 Dyslipidemia 11/15/2012 Peripheral vascular disease 07/30/2009 S/P angioplasty with stent 08/09/2007 Bicuspid aortic valve Generalized osteoarthritis Fibromyalgia documented as of this encounter (statuses as of 05/11/2023) Resolved Problems Problem Noted Date Resolved Date [...] DELETE [facility] DETECT Study: Project # [id number], Process Coordinator: Jona Mckeon, PhD. SUMMARY: Goal: Establish test [...] contact study staff at ; after hours Process Coordinator via the [facility] cable machine operator . Please contact study team before resolving/deleting from patients problem list. Study phone number: [phone]. Diagnosis changed due to Research Module. Go to Snapshot for study details. Encounter for examination fo r normal comparison and control in clinical research program 02/05/2019 06/10/2022 Overview: DO NOT DELETE - [facility] [place] Study: Project # [id number], Process Coordinator: Vipin Carvalho, MS, MPH. SUMMARY: Goal: Establish [...] contact study staff at ; after hours Process Coordinator via the [facility] cable machine operator . - Please contact study team before resolving/deleting from patients problem list. Study phone number: [phone]. Diagnosis changed due to Research Module. Go [...] 12/30/2021 Hiatal hernia 06/21/2018 12/30/2021 History of IN (myocardial infarction) 05/09/2018 12/30/2021 Vulvar lesion 05/09/2018 [...] 08/01/2008 Overview: Study Titile: Event Registry Project #[id number] PI: Rachna Manley MD Please call [phone] with study related questions [employer] Other*[id number] 200611/16/2016 Overview: Study Title: Genomic Markers for Patients with Cardiovascular Disease Project # [id number] Process Coordinator: Rachna Manley MD [phone] Type 2 diabetes mellitus wit h hemoglobin A1c goal of less than 7.0% 11/15/2005 08/07/2009 Overview: Per Diabetes Taxonomy. ICD-10 update of inactive term Spondylolisthesis 05/11/2004 12/30/2021 HTN, goal below 140/90 12/08/2000 0 Overview: Per HTN Taxonomy. S/P total knee replacement, left 04/05/2023 Erosive osteoarthritis of both hands 04/05/2023 documented as of this encounter (statuses as of 05/11/2023) Immunizations Name Administration Dates Next Due COVID-19 mRNA, LNP-s, No Pre serve, 2-Dose Series (Yurbuds) 10/06/2021,01/05/2021,12/09/2020 COVID-19, LNP-s, No Preserve , Angus-sucrose, Ages 12+ (Yurbuds) 03/10/2022 Covid-19, Mrna, Lnp-s, Pf, B ivalent, 30 Mcg, IM, 12 yrs and above (Yurbuds) 07/13/2022 Pneumococcal Conjugate Vacc, 13 Valent (Prevnar) 11/25/2016 Pneumococcal Polysaccharide PPV23 (Pneumovax) 05/09/2018,07/18/2006 Seasonal Influenza, Quadriva lent Hd (Fluzone Hd) 07/16/2022 Seasonal Influenza, Quadriva lent, No Preserve, 6 Mons & Above, IM 06/30/2021,08/24/2018,07/05/2017 Seasonal Influenza, Quadriva lent, No Preserve, IM [...] encounter Miscellaneous Notes * Telephone Encounter - Collin Mchugh LPN - 05/11/2023 10:42 AM EDT Sent patient a letter to make aware of unread [employer] message. * Telephone Encounter - Collin Mchugh LPN - 05/03/2023 3:59 PM EDT Sent patient a [employer] message to make aware. ----- Message from Flako Gomez PA-C sent at 05/02/2023 4:39 PM EDT ----- May 02, 2023 TTE Interpretation Summary (as per Dr. Logan): The qualitative LV ejection fraction is 55-59% (normal). The wall thickness is mildly increased in segments with normal wall motion. There is a small sized inferior wall motion abnormality with akinesis of the segments. The left ventricular diastolic function is mildly abnormal (grade I). The aortic valve is moderately calcified. Theaortic valve is possibly bicuspid. Moderate to severe aortic stenosis. Mild aortic valve regurgitation is present. Mild mitral regurgitation is present. Compared to study dated October 29, 2022, aortic valve systolic gradient is unchanged. ECHO results are similar to prior, moderate to severe aortic stenosis of a congenitally bicuspid aortic valve. Aortic root and ascending aorta with normal measurements, 3.2 cm and 3.4 cm respectively. Follow-up as scheduled with Dr. Hayden, or as needed. documented in this encounter Plan of Treatment Upcoming Encounters Date Type Specialty Care Team Description 06/07/2023 Hospital Encounter Endoscopy Adryan Don MD [address] [place] [address] 06/07/2023 Surgery Endoscopy Adryan Don MD [address] [place] [address] COLONOSCOPY FLEXIBLE PROXIMAL DIAGNOSTIC 06/17/2023 Office Visit [facility]acy [facility] [address] [place] [address] 06/29/2023 Therapy Psychology Beni Mares, PhD [address] [facility] [place] [address] 07/28/2023 Office Visit Family Medicine Bartolome Villa DO [address] [place] [address] 09/23/2023 Nurse Only Ancillary [facility]hillon, Nurse [facility] [address] [place] [address] 10/24/2023 Office Visit Neurology Izzy Hughes MD [address] [facility] [place] [address] 11/18/2023 Office Visit Cardiology Chema Hayden MD [address] [place] [address] 02/23/2024 Office Visit Rheumatology Beni Fernandez MD [address] [place] [address] Scheduled Procedures Name Priority Associated Diagnoses Date/Ti [...] Additional history exists CKD HGB USE SMARTSET 45465 09/09/202309/09, 09/09/2022, 06/04/2022, Additional history exists Depression Screening, Annual for Pts 12 and Over 09/22/2023 09/22/2022 GFR 10/21/2023 04/20/2023, 05/11, 11/17/2021, Additional history exists HbA1c 10/21/2023 04/20/2023, 05/11, 12/07/2021, Additional history exists Mammogram 04/08/2024 04/08/2023, 03/11, 01/29/2021, Additional history exists Albumin/Creatinine Ratio 04/20/2024 023, 03/25/2022, 10/30/2020, Additional history exists CKD PHOS USE SMARTSET 59886 04/20/202404/09, 11/17/2021, 03/26/2020, Additional history exists DXA Scan 11/09/2028 11/09/2021, 12/27/2016 DTaP,Tdap,and Td Vaccines (3 - Td or Tdap) 09/13/2029 09/13/2019, 07/30/2009, 01/09/1996, Additional history exists Pneumococcal Vaccine: 65+ Years Completed 05/09/2018, 11/25/2016, 07/18/2006 Zoster Vaccines Completed 06/25/2020, 03/10, 07/07/2015 COVID-19 Vaccine Completed 07/13/2022, 10/2021, 10/06/2021, Additional history exists LUNG CANCER SCREENING - USE SMARTSET 31961 Completed 02/15/2023, 04/06/2022, 05/09/2020, Additional history exists [...] and were consensually agreed upon. Care Teams Wild Life Manager Relationship Specialty Start Date End Date Bartolome Villa DO [address] [place] [address] PCP - General Family Medicine 02/16/23 documented as of this encounter
--- OUTSIDE RECORDS SUMMARY | 2023-10-27 07:06 | External Medical Summary | Summary of Care ---
Author Name Unknown Organization [facility] Address [address] [place] [address] Phone [phone] Care Team Providers Care Frame Bender Name Role Phone Bartolome Villa DO Primary Care Provider Reason for Referral * Ancillary Services (Within 10 days (routine)) - Authorized Specialty Diagnoses / Procedures Referred By Julia guadalupe Referred To Contact Gastroenterology Diagnoses Screen for colon cancer Bartolome Villa DO [address] [facility] [place] [address] Referral ID Status Reason Start Date Expiration Date Visits Requested Visits Authorized [id number] Authorized Ancillary Services Required 05/10/2023 999 999 Question Answer Referral Priority Within 10 days (routine) Comments ALERT: Do not order for pediatric patients (18 years or younger). Cancel off screen and order PEDS GASTROENTEROLOGY CONSULT (Type: 1 visit only-Evaluate and Treat) The following Pt. Instructions are available: - Gastro Colonoscopy Prep Instructions [17905] - Gastro Colonoscopy Prep Instructions (Danish Version) [[id number]] Go to the Pt. Instructions section within the Visit Navigator to access. Colonoscopy ASGE Guidelines: Average risk screening (begin at age 50, 10 year intervals) ADDITIONAL INFORMATION 1. Is the patient on Coumadin? No 2. Is the patient on Pradaxa? No Reason for Visit * Reason Onset Date Comments Referral Requested by Specialist 05/10/2023 colonoscopy Encounter Details Date Type Department Care Team Description 05/10/2023 Telephone Family Practice [facility] [address] [place] [address] Bartolome Villa DO [address] [place] [address] Referral Requested by Specialist (colonosc... Allergies Active Allergy Reactions Severity Noted Date Comments Iodinated Contrast Media Itching 08/18/2011 Sitagliptin Phosphate Other (Please comment) 03/07/2013 pancreatitis Niacin High 06/14/2019 Other reaction(s): HOT/BURNING FEELING documented as of this encounter (statuses as of 05/10/2023) Medications Medication Sig Dispensed Refills Start Date [...] goal of less than 7.0% ([facility]) TEST FOUR TIMES DAILY AND [...] failure, systolic, due to CAD ([facility]) Take 40 mg by mouth on Mondays, [...] goal of less than 7.0% ([facility]) Use with insulin twice daily [...] DAY 90 Tablet 3 12/06/2022 Active PEG 9208-CXy-LzCqd-NaCl -NaSulf 236 GM Oral Solution Reconstituted Please [...] Severe. 20 Tablet 0 04/06/2023 Active Nystatin 891094 UNIT/GM External Cream Apply topically to affected [...] Oral Tablet Extended Release 24 Hour (Ultram ER)Indications:[place] leonor osteoarthritis of both hands Take 1 [...] as of this encounter (statuses as of 05/10/2023) Active Problems Problem Noted Date Moderate aortic valve stenosis VINCE (obstructive sleep apnea) 08/20/2021 Chronic kidney disease, stage 3b 021 Overview: Per CKD protocol Coronary artery disease invo lving [place] coronary artery of [place] heart without angina pectoris 02/13/2019 Chronic systolic heart failure 9 Type 2 diabetes mellitus with hemoglobin A1c goal of less than 8.0% 02/02/2019 HTN, goal below 130/80 12/15/2015 Overview: Per HTN Protocol #27. Old CO (myocardial infarction) 5 Dyslipidemia 11/15/2012 Peripheral vascular disease 07/30/2009 S/P angioplasty with stent 08/09/2007 Bicuspid aortic valve Generalized osteoarthritis Fibromyalgia documented as of this encounter (statuses as of 05/10/2023) Resolved Problems Problem Noted Date Resolved Date [...] DELETE [facility] DETECT Study: Project # [id number], Beverage Distiller: Jona Mckeon, PhD. SUMMARY: Goal: Establish test [...] contact study staff at ; after hours Beverage Distiller via the [facility] lasting machine operator hand method . Please contact study team before resolving/deleting from patients problem list. Study phone number: [phone]. Diagnosis changed due to Research Module. Go to Snapshot for study details. Encounter for examination fo r normal comparison and control in clinical research program 02/05/2019 06/10/2022 Overview: DO NOT DELETE [facility] DETECT Study: Project # [id number], Beverage Distiller: Vipin Carvalho, MS, MPH. SUMMARY: Goal: Establish [...] contact study staff at ; after hours Beverage Distiller via the [facility] lasting machine operator hand method . - Please contact study team before resolving/deleting from patients problem list. Study phone number: [phone]. Diagnosis changed due to Research Module. Go [...] 12/30/2021 Hiatal hernia 06/21/2018 12/30/2021 History of CO (myocardial infarction) 05/09/2018 12/30/2021 Vulvar lesion 05/09/2018 [...] 08/01/2008 Overview: Study Titile: Event Registry Project #[id number] PI: Rachna Manley MD Please call [phone] with study related questions [employer] Other*[id number] 200611/16/2016 Overview: Study Title: Genomic Markers for Patients with Cardiovascular Disease Project # [id number] Beverage Distiller: Rachna Manley MD [phone] Type 2 diabetes mellitus wit h hemoglobin A1c goal of less than 7.0% 11/15/2005 08/07/2009 Overview: Per Diabetes Taxonomy. ICD-10 update of inactive term Spondylolisthesis 05/11/2004 12/30/2021 HTN, goal below 140/90 12/08/2000 0 Overview: Per HTN Taxonomy. S/P total knee replacement, left 04/05/2023 Erosive osteoarthritis of both hands 04/05/2023 documented as of this encounter (statuses as of 05/10/2023) Immunizations Name Administration Dates Next Due COVID-19 mRNA, LNP-s, No Pre serve, 2-Dose Series ([employer]) 10/06/2021,01/05/2021,12/09/2020 COVID-19, LNP-s, No Preserve , Angus-sucrose, Ages 12+ ([employer]) 03/10/2022 Covid-19, Mrna, Lnp-s, Pf, B ivalent, [...] encounter Miscellaneous Notes * Telephone Encounter - Madhuri Farias LPN - 05/10/2023 4:30 PM EDT Pended colonoscopy for upcomming procedure * Telephone Encounter - VINCE Bell - 05/10/2023 1:33 PM EDT Requesting order be placed for upcoming colonoscopy on 06/07/[address] Don. Dx - colon cancer screening documented in this encounter Plan of Treatment Upcoming Encounters Date Type Specialty Care Team Description 06/07/2023 Hospital Encounter Endoscopy Adryan Don MD [address] [place] [address] 06/07/2023 Surgery Endoscopy Adryan Don MD [address] [place] [address] COLONOSCOPY FLEXIBLE PROXIMAL DIAGNOSTIC 06/17/2023 Office Visit Pharmacy [facility] [address] [place] [address] 06/29/2023 Therapy Psychology Beni Mares, PhD [address] [facility] [place] [address] 07/28/2023 Office Visit Family Medicine Bartolome Villa DO [address] [place] [address] 09/23/2023 Nurse Only Ancillary [place], [facility] [address] [place] [address] 10/24/2023 Office Visit Neurology Izzy Hughes MD [address] [place] [address] 11/18/2023 Office Visit Cardiology Chema Hayden MD [address] [place] [address] 02/23/2024 Office Visit Rheumatology Beni Fernandez MD [address] [facility] [place] [address] Scheduled Procedures Name Priority Associated Diagnoses Date/Ti me COLONOSCOPY FLEXIBLE PROXIMAL DIAGNOSTIC Special screening for malignant neoplasms, colon 06/07/2023 9:30 AM EDT Scheduled Referrals Name Type Priority Associated Diagnoses Orde r Schedule COLONOSCOPY, GI REFERRAL OP Referral Within 10 days (routine) Screen for colon cancer Ordered: 05/10/2023 Health Maintenance Due Date Last Done Comments COLONOSCOPY-EVERY 2 YRS AGES 18-100 08/29/2021 08/29/2019, 08/29/2019, 01/02/2014, Additional history exists DIABETES-FOOT EXAM 06/03/2022 06/03/2021, 0 03/25/2020, 04/03/2019, Additional history exists Influenza Vaccine (FLU shot) (#1) 2023 07/16/2022, 06/30/2021, 06/10/2020, Additional history exists DIABETES-EYE EXAM 08/19/2023 08/19/2022, , 11/27/2019, Additional history exists CKD HGB USE SMARTSET 31262 09/09/202309/09, 09/09/2022, 06/04/2022, Additional history exists Depression Screening, Annual for Pts 12 and Over 09/22/2023 09/22/2022 GFR 10/21/2023 04/20/2023, 05/11, 11/17/2021, Additional history exists HbA1c 10/21/2023 04/20/2023, 05/11, 12/07/2021, Additional history exists Mammogram 04/08/2024 04/08/2023, 03/11, 01/29/2021, Additional history exists Albumin/Creatinine Ratio 04/20/2024 023, 03/25/2022, 10/30/2020, Additional history exists CKD PHOS USE SMARTSET 38019 04/20/202404/09, 11/17/2021, 03/26/2020, Additional history exists DXA Scan 11/09/2028 11/09/2021, 12/27/2016 DTaP,Tdap,and Td Vaccines (3 - Td or Tdap) 09/13/2029 09/13/2019, 07/30/2009, 01/09/1996, Additional history exists Pneumococcal Vaccine: 65+ Years Completed 05/09/2018, 11/25/2016, 07/18/2006 Zoster Vaccines Completed 06/25/2020, 03/10, 07/07/2015 COVID-19 Vaccine Completed 07/13/2022, 10/2021, 10/06/2021, Additional history exists LUNG CANCER SCREENING - USE SMARTSET 85435 Completed 02/15/2023, 04/06/2022, 05/09/2020, Additional history exists [...] as of this encounter Visit Diagnoses Diagnosis Screen for colon cancer- Primary Special screening for malignant neoplasms, colon Special screening for malignant neoplasms, colon documented in this encounter Advance Directives Latest Code Status on File Code Status Date Activated Date Inactivated Comments Full Code 07/04/2018 11:03 AM 07/04/2018 5:07 PM This order reflects the patients wishes and were consensually agreed upon. Care Teams Frame Bender Relationship Specialty Start Date End Date Bartolome Villa DO [address] [place] [address] PCP - General Family Medicine 02/16/23 documented as of this encounter
--- OUTSIDE RECORDS SUMMARY | 2023-10-27 07:06 | External Medical Summary | Summary of Care ---
Author Name Unknown Organization [facility] [address] [facility] [place] [address] Phone [phone] Care Team Providers Care Farm Management Supervisor Name Role Phone Bartolome Villaирина Primary Care Provider Reason for Visit * Reason Onset Date Comments Test Results 05/03/2023 Encounter Details Date Type Department Care Team Description 05/03/2023 Telephone Cardiology, [facility] [address] [place] [address] Flako Gomez PA-C [address] [facility] [place] [address] Test Results Allergies Active Allergy Reactions Severity Noted Date Comments Iodinated Contrast Media Itching 08/18/2011 Sitagliptin Phosphate Other (Please comment) 03/07/2013 pancreatitis Niacin High 06/14/2019 Other reaction(s): HOT/BURNING FEELING documented as of this encounter (statuses as of 05/03/2023) Medications Medication Sig Dispensed Refills Start Date [...] 100 g 11 05/09/2018 Active Glucose Blood (SyCara LocalUCH ULTRA BLUE) STRPIndications:Typ e 2 diabetes mellitus with hemoglobin A1c goal of less than 7.0% ([facility]) TEST FOUR TIMES DAILY AND [...] (Lasix)Indications: Heart failure, systolic, due to CAD ([facility]) Take 40 mg by mouth [...] hemoglobin A1c goal of less than 7.0% ([facility]) Use with insulin twice daily [...] DAY 90 Tablet 3 12/06/2022 Active PEG 6949-WBp-ZdYfo-NaCl -NaSulf 236 GM Oral Solution Reconstituted Please [...] Severe. 20 Tablet 0 04/06/2023 Active Nystatin 607123 UNIT/GM External Cream Apply topically to affected [...] Oral Tablet Extended Release 24 Hour (Ultram ER)Indications:[place] leonor osteoarthritis of both hands Take 1 [...] as of this encounter (statuses as of 05/03/2023) Active Problems Problem Noted Date Moderate aortic valve stenosis VINCE (obstructive sleep apnea) 08/20/2021 Chronic kidney disease, stage 3b 021 Overview: Per CKD protocol Coronary artery disease invo lving [place] coronary artery of [place] heart without angina pectoris 02/13/2019 Chronic systolic heart failure 9 Type 2 diabetes mellitus with hemoglobin A1c goal of less than 8.0% 02/02/2019 HTN, goal below 130/80 12/15/2015 Overview: Per HTN Protocol #27. Old ME (myocardial infarction) 5 Dyslipidemia 11/15/2012 Peripheral vascular disease 07/30/2009 S/P angioplasty with stent 08/09/2007 Bicuspid aortic valve Generalized osteoarthritis Fibromyalgia documented as of this encounter (statuses as of 05/03/2023) Resolved Problems Problem Noted Date Resolved Date [...] [facility] DET[facility] Study: Project # [id number], Online Merchandising Coordinator: Jona Mckeon, PhD. SUMMARY: Goal: Establish [...] contact study staff at ; after hours Online Merchandising Coordinator via the [facility] thermo cementing folder operator . Please contact study team before resolving/deleting from patients problem list. Study phone number: [phone]. Diagnosis changed due to Research Module. Go to Snapshot for study details. Encounter for examination fo r normal comparison and control in clinical research program 02/05/2019 06/10/2022 Overview: DO NOT DELETE - [facility] [place] Study: Project # [id number], Online Merchandising Coordinator: Vipin Carvalho, MS, MPH. SUMMARY: Goal: [...] contact study staff at ; after hours Online Merchandising Coordinator via the [facility] thermo cementing folder operator . - Please contact study team before resolving/deleting from patients problem list. Study phone number: [phone]. Diagnosis changed due to Research Module. Go [...] 12/30/2021 Hiatal hernia 06/21/2018 12/30/2021 History of ME (myocardial infarction) 05/09/2018 12/30/2021 Vulvar lesion 05/09/2018 [...] 08/01/2008 Overview: Study Titile: Event Registry Project #[id number] PI: Rachna Manley MD Please call [phone] with study related questions [employer] Other*[id number] 200611/16/2016 Overview: Study Title: Genomic Markers for Patients with Cardiovascular Disease Project # [id number] Online Merchandising Coordinator: Rachna Manley MD [phone] Type 2 diabetes mellitus wit h hemoglobin A1c goal of less than 7.0% 11/15/2005 08/07/2009 Overview: Per Diabetes Taxonomy. ICD-10 update of inactive term Spondylolisthesis 05/11/2004 12/30/2021 HTN, goal below 140/90 12/08/2000 0 Overview: Per HTN Taxonomy. S/P total knee replacement, left 04/05/2023 Erosive osteoarthritis of both hands 04/05/2023 documented as of this encounter (statuses as of 05/03/2023) Immunizations Name Administration Dates Next Due COVID-19 mRNA, LNP-s, No Pre serve, 2-Dose Series ([employer]) 10/06/2021,01/05/2021,12/09/2020 COVID-19, LNP-s, No Preserve , Angus-sucrose, Ages 12+ ([employer]) 03/10/2022 Covid-19, Mrna, Lnp-s, Pf, B ivalent, 30 Mcg, IM, 12 yrs and above ([employer]) 07/13/2022 Pneumococcal Conjugate Vacc, 13 Valent (Prevnar) [...] Miscellaneous Notes * Telephone Encounter - Collin Mhcugh LPN - 05/03/2023 3:59 PM EDT Sent patient a [email or web address] message to make aware. ----- Message from [...] Don MD [address] [place] [address] 06/07/2023 Surgery Endoscopy Adryan Don MD [address] [place] [address] COLONOSCOPY FLEXIBLE PROXIMAL DIAGNOSTIC 06/17/2023 [facility] [place] [address] 06/29/2023 Therapy Psychology Beni Mares, PhD [address] [facility] [place] [address] 07/28/2023 Office Visit Family Medicine Bartolome Villa DO [address] [place] [address] 09/23/2023 Nurse Only Ancillary [facility] [place] [address] [place] [address] 10/24/2023 Office Visit Neurology Izzy Hughes MD [address] [place] [address] 11/18/2023 Office Visit Cardiology Chema Hayden MD [address] [place] [address] 02/23/2024 Office Visit Rheumatology Beni Fernandez MD [address] [place] [address] [place] [address] Scheduled Procedures Name Priority Associated Diagnoses Date/Ti [...] Additional history exists CKD HGB USE SMARTSET 93726 09/09/202309/09, 09/09/2022, 06/04/2022, Additional history exists Depression Screening, Annual for Pts 12 and Over 09/22/2023 09/22/2022 GFR 10/21/2023 04/20/2023, 05/11, 11/17/2021, Additional history exists HbA1c 10/21/2023 04/20/2023, 05/11, 12/07/2021, Additional history exists Mammogram 04/08/2024 04/08/2023, 03/11, 01/29/2021, Additional history exists Albumin/Creatinine Ratio 04/20/2024 023, 03/25/2022, 10/30/2020, Additional history exists CKD PHOS USE SMARTSET 31014 04/20/202404/09, 11/17/2021, 03/26/2020, Additional history exists DXA Scan 11/09/2028 11/09/2021, 12/27/2016 DTaP,Tdap,and Td Vaccines (3 - Td or Tdap) 09/13/2029 09/13/2019, 07/30/2009, 01/09/1996, Additional history exists Pneumococcal Vaccine: 65+ Years Completed 05/09/2018, 11/25/2016, 07/18/2006 Zoster Vaccines Completed 06/25/2020, 03/10, 07/07/2015 COVID-19 Vaccine Completed 07/13/2022, 10/2021, 10/06/2021, Additional history exists LUNG CANCER SCREENING - USE SMARTSET 85955 Completed 02/15/2023, 04/06/2022, 05/09/2020, Additional history exists [...] and were consensually agreed upon. Care Teams Farm Management Supervisor Relationship Specialty Start Date End Date Bartolome Villa DO [address] [place] [address] PCP - General Family Medicine 02/16/23 documented as of this encounter
--- OUTSIDE RECORDS SUMMARY | 2023-10-27 07:06 | External Medical Summary | Summary of Care ---
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); Peripheral edema Allergies Active Allergy Reactions Severity Noted Date Comments Iodinated Contrast Media Itching 08/18/2011 Sitagliptin Phosphate Other (Please comment) 03/07/2013 pancreatitis Niacin High 06/14/2019 Other reaction(s): HOT/BURNING FEELING documented as of this encounter (statuses as of 05/30/2023) Medications Medication Sig Dispensed Refills Start Date [...] hemoglobin A1c goal of less than 7.0% ([facility]) TEST FOUR TIMES DAILY AND UP TO 8 TIMES DAILY IF NEEDED FOR FLUCTUATING SUGARS E11.9 600 Strip 0 07/07/20 18 Active Nitroglycerin 0.4 MG Sublingual Tablet Sublingual (Nitrostat)Indicat ions:Chest pain Place 1 Tab under the tongue every 5 minutes as needed for Pain, Chest. Up to 3 doses in 15 minutes. 25 Tab 11 07/13/20 21 Active Probiotic Daily Oral Capsule Take by [...] DAY 90 Tablet 3 08/02/20 22 Active Furosemide 20 MG Oral Tablet (Lasix)Indications :Heart failure, systolic, due to CAD (HCC) Take [...] hemoglobin A1c goal of less than 7.0% ([facility]) Use with insulin twice daily as [...] DAY 90 Tablet 3 10/18/19 23 Active Rosuvastatin Calcium 40 MG Oral Tablet (Crestor)Indicatio ns:Dyslipidemia, goal LDL below 70 TAKE 1 TABLET BY MOUTH EVERY DAY 90 Tablet 3 12/06/19 23 Active PEG 2075-HSw-RyQeq-NaC l-NaSulf 236 GM Oral Solution Reconstituted Please take according to Colonoscopy prep instructions. 4000 mL 0 01/22/20 23 Active NovoLOG FlexPen 100 UNIT/ML Subcutaneous Solution Pen-injector INJECT 8-12 UNITS PRIOR TO EACH MEAL -EXTRA IF NEEDED BASED ON BLOOD SUGAR 30 mL 1 02/07/20 23 Active Nystatin 640900 UNIT/GM External Cream Apply topically to affected [...] mg weekly 3 mL 5 04/15/20 23 Active Additional Information Patient not taking.Reported on 04/20/2023 Estradiol 0.1 MG/GM Vaginal Cream (Estrace) To vulva daily for 4 weeks and then 2 times a week 42.5 g 3 04/22/20 23 Active Omeprazole 40 MG Oral Capsule Delayed Release (PriLOSEC) TAKE 1 CAPSULE BY MOUTH EVERY DAY 1 HOUR BEFORE THE FIRST MEAL OF THE DAY 90 Capsule 3 04/18/20 23 Active traMADol HCl 50 MG Oral Tablet [...] MORNING 90 Tablet 3 04/30/20 23 Active oxyCODONE HCl 5 MG Oral Tablet (Oxy IR) Take 1 Tablet by mouth every 8 hours as needed for Pain, Severe. 20 Tablet 0 05/17/20 23 Active traMADol HCl ER 100 MG Oral Tablet Extended Release 24 Hour (Ultram ER)Indications:Ero sive osteoarthritis of both hands Take 1 Tablet by mouth in the morning and 1 Tablet before bedtime. 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),Peripheral edema TAKE 1 TABLET BY MOUTH EVERY MORNING 90 Tablet 3 06/09/20 22 023 Discontinued documented as of this encounter (statuses as of 05/30/2023) Active Problems Problem Noted Date Moderate aortic valve stenosis 1 VINCE (obstructive sleep apnea) 08/20/2021 Chronic kidney disease, stage 3b 021 Overview: Per CKD protocol Coronary artery disease invo lving [place] coronary artery of [place] heart without angina pectoris 02/13/2019 Chronic systolic heart failure 9 Type 2 diabetes mellitus with hemoglobin A1c goal of less than 8.0% 02/02/2019 HTN, goal below 130/80 12/15/2015 Overview: Per HTN Protocol #27. Old [place] (myocardial infarction) 5 Dyslipidemia 11/15/2012 Peripheral vascular disease 07/30/2009 S/P angioplasty with stent 08/09/2007 Bicuspid aortic valve Generalized osteoarthritis Fibromyalgia documented as of this encounter (statuses as of 05/30/2023) Resolved Problems Problem Noted Date Resolved Date [...] DO NOT DELETE [facility] [place] Study: Project # [id number], Lawn Care Worker: Jona Mckeon, PhD. SUMMARY: Goal: Establish [...] contact study staff at ; after hours Lawn Care Worker via the [facility] hospital corduroy cutter operator . Please contact study team before resolving/deleting from patients problem list. Study phone number: [phone]. Diagnosis changed due to Research Module. Go to Snapshot for study details. Encounter for examination fo r normal comparison and control in clinical research program 02/05/2019 06/10/2022 Overview: DO NOT DELETE - [facility] Study: Project # [id number], Lawn Care Worker: Vipin Carvalho, MS, MPH. SUMMARY: Goal: [...] contact study staff at ; after hours Lawn Care Worker via the [facility] corduroy cutter operator . - Please contact study team before resolving/deleting from patients problem list. Study phone number: [phone]. Diagnosis changed due to Research Module. Go to Axiom for study details. Type 2 diabetes mellitus [...] 08/01/2008 Overview: Study Titile: Event Registry Project #[id number] PI: Rachna Manley MD Please call [phone] with study related questions [employer] Other*[id number] 200611/16/2016 Overview: Study Title: Genomic Markers for Patients with Cardiovascular Disease Project # [id number] Lawn Care Worker: Rachna Manley MD [phone] Type 2 diabetes mellitus wit h hemoglobin A1c goal of less than 7.0% 11/15/2005 08/07/2009 Overview: Per Diabetes Taxonomy. ICD-10 update of inactive term Spondylolisthesis 05/11/2004 12/30/2021 HTN, goal below 140/90 12/08/2000 0 Overview: Per HTN Taxonomy. S/P total knee replacement, left 04/05/2023 Erosive osteoarthritis of both hands 04/05/2023 documented as of this encounter (statuses as of 05/30/2023) Immunizations Name Administration Dates Next Due COVID-19 mRNA, LNP-s, No Pre serve, 2-Dose Series ([employer]) 10/06/2021,01/05/2021,12/09/2020 COVID-19, LNP-s, No Preserve , Angus-sucrose, Ages 12+ (Pfizer) 03/10/2022 Covid-19, Mrna, Lnp-s, Pf, B ivalent, 30 Mcg, IM, 12 yrs and above ([employer]) 07/13/2022 Pneumococcal Conjugate Vacc, 13 Valent (Prevnar) [...] encounter Miscellaneous Notes * Telephone Encounter - Judy Andrew PA-C - 05/30/2023 12:38 PM EDTSigned Prescriptions: Disp Refills Isosorbide Mononitrate ER 30 MG Oral Table*90 Tab*3 Sig: TAKE 1 TABLET BY MOUTH EVERY MORNING Authorizing Provider: JUDY ANDREW * Telephone Encounter - Dina An CMA - 05/30/2023 11:54 AM EDTPending Prescriptions: Disp Refills Isosorbide Mononitrate ER 30 MG Oral Table*90 Tab*3 Sig: TAKE 1 TABLET BY MOUTH EVERY MORNING * Telephone Encounter - Dina An CMA - 05/30/2023 11:54 AM EDT Did you pend patient's preferred pharmacy and medication before forwarding?yes Pharmacy: [facility] [id number] [place] Pending Prescriptions: Disp Refills Isosorbide Mononitrate ER 30 MG Oral Tabl*90 Tab*3 Sig: TAKE 1 TABLET BY MOUTH EVERY MORNING Last Visit: 01/21/2023 (in office), Visit date not found (telemedicine) Next Visit: 11/18/2023 If no future appointments scheduled, and last appointment is greater than a year ago, please schedule patient for a follow-up appointment Last date the medication was ordered: Is this request for a controlled substance?No [...] POTASSIUM 5.4 (H) 10/30/2020 01:02 PM TSH 0.794 05/01/2021 12:00 AM TSH 1.62 [...] Hospital Encounter Endoscopy Adryan Don MD [address] [place] [address] 06/07/2023 Surgery Endoscopy Adryan Don MD [address] [place] [address] COLONOSCOPY FLEXIBLE PROXIMAL DIAGNOSTIC 06/17/2023 Office Visit [facility] Mati Dhillon [facility] [place] [address] [place] [address] 06/29/2023 Therapy Psychology Beni Mares, PhD [address] [facility] [place] [address] 07/28/2023 Office Visit Family Medicine Bartolome Villa DO [address] [facility] [place] [address] 09/23/2023 Nurse Only Ancillary Dhillon, Nurse [facility] [place] [address] [place] [address] 10/24/2023 Office Visit Neurology zIzy Hughes MD [address] [facility] [place] [address] 11/18/2023 Office Visit Cardiology Chema Hayden MD [address] [place] [address] 02/23/2024 Office Visit Rheumatology Beni Fernandez MD [address] [place] [address] Scheduled Procedures Name Priority Associated Diagnoses Date/Ti [...] Additional history exists CKD HGB USE SMARTSET 00571 09/09/202309/09, 09/09/2022, 06/04/2022, Additional history exists Depression Screening, Annual for Pts 12 and Over 09/22/2023 09/22/2022 GFR 10/21/2023 04/20/2023, 05/11, 11/17/2021, Additional history exists HbA1c 10/21/2023 04/20/2023, 05/11, 12/07/2021, Additional history exists Mammogram 04/08/2024 04/08/2023, 03/11, 01/29/2021, Additional history exists Albumin/Creatinine Ratio 04/20/2024 023, 03/25/2022, 10/30/2020, Additional history exists CKD PHOS USE SMARTSET 55077 04/20/202404/09, 11/17/2021, 03/26/2020, Additional history exists DXA Scan 11/09/2028 11/09/2021, 12/27/2016 DTaP,Tdap,and Td Vaccines (3 - Td or Tdap) 09/13/2029 09/13/2019, 07/30/2009, 01/09/1996, Additional history exists Pneumococcal Vaccine: 65+ Years Completed 05/09/2018, 11/25/2016, 07/18/2006 Zoster Vaccines Completed 06/25/2020, 03/10, 07/07/2015 COVID-19 Vaccine Completed 07/13/2022, 10/2021, 10/06/2021, Additional history exists LUNG CANCER SCREENING - USE SMARTSET 00873 Completed 02/15/2023, 04/06/2022, 05/09/2020, Additional history exists [...] as of this encounter Visit Diagnoses Diagnosis 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 Care Teams Head Filter Press Tender Relationship Specialty Start Date End Date Bartolome Villa DO [address] [place] [address] PCP - General Family Medicine 02/16/23 documented as of this encounter
--- OUTSIDE RECORDS SUMMARY | 2023-10-27 07:06 | External Medical Summary | Summary of Care ---
Author Name Unknown Organization [facility] Address [address] [facility] [place] [address] Phone [phone] Care Team Providers Care Population Health Manager Name Role Phone Bartolome Villa DO Primary Care Provider Reason for Referral * Ancillary Services (Within 10 days (routine)) - Authorized Specialty Diagnoses / Procedures Referred By Julia guadalupe Referred To Contact Gastroenterology Diagnoses Screen for colon cancer Bartolome Villa DO [address] [facility] [place] [address] Referral ID Status Reason Start Date Expiration Date Visits Requested Visits Authorized [id number] Authorized Ancillary Services Required 05/10/[phone] Question Answer Referral Priority Within 10 days (routine) Comments ALERT: Do not order for pediatric patients (18 years or younger). Cancel off screen and order PEDS GASTROENTEROLOGY CONSULT (Type: 1 visit only-Evaluate and Treat) The following Pt. Instructions are available: - Gastro Colonoscopy Prep Instructions [75023] - Gastro Colonoscopy Prep Instructions (Syrian Version) [01594] Go to the Pt. Instructions section within [...] Care Team Description 05/10/2023 Telephone Family Practice [facility] [address] [place] [address] Bartolome Villa DO [address] [place] [address] Referral Requested by Specialist (colonosc... Allergies Active [...] goal of less than 7.0% ([facility]) TEST FOUR TIMES DAILY AND UP [...] (Lasix)Indications: Heart failure, systolic, due to CAD ([facility]) Take 40 mg by mouth on [...] goal of less than 7.0% ([facility]) Use with insulin twice daily as [...] DAY 90 Tablet 3 12/06/2022 Active PEG 2662-BJl-KlAsu-NaCl -NaSulf 236 GM Oral Solution Reconstituted Please [...] Severe. 20 Tablet 0 04/06/2023 Active Nystatin 522785 UNIT/GM External Cream Apply topically to affected [...] Oral Tablet Extended Release 24 Hour (Ultram ER)Indications:[place] osteoarthritis of both hands Take 1 [...] CKD protocol Coronary artery disease invo lving [place] coronary artery of [place] heart without angina pectoris 02/13/2019 Chronic systolic heart failure 9 Type 2 diabetes mellitus with hemoglobin A1c goal of less than 8.0% 02/02/2019 HTN, goal below 130/80 12/15/2015 Overview: Per HTN Protocol #27. Old [place] (myocardial infarction) 5 Dyslipidemia 11/15/2012 Peripheral vascular [...] [facility] Study: Project # [id number], Plant Operations Vice President: Jona Mckeon, PhD. SUMMARY: Goal: Establish test [...] contact study staff at ; after hours Plant Operations Vice President via the [facility] malt house kiln operator . Please contact study team before resolving/deleting from patients problem list. Study phone number: [phone]. Diagnosis changed due to Research Module. Go to Snapshot for study details. Encounter for examination fo r normal comparison and control in clinical research program 02/05/2019 06/10/2022 Overview: DO NOT DELETE [facility] DETECT Study: Project # [id number], Plant Operations Vice President: Vipin Carvalho, MS, MPH. SUMMARY: Goal: Establish [...] contact study staff at ; after hours Plant Operations Vice President via the [facility] malt house kiln operator . - Please contact study team before resolving/deleting from patients problem list. Study phone number: [phone]. Diagnosis changed due to Research Module. Go [...] 12/30/2021 Hiatal hernia 06/21/2018 12/30/2021 History of [place] (myocardial infarction) 05/09/2018 12/30/2021 Vulvar lesion 05/09/2018 [...] 08/01/2008 Overview: Study Titile: Event Registry Project #[id number] PI: Rachna Manley MD Please call [phone] with study related questions [employer] Other*[id number] 200611/16/2016 Overview: Study Title: Genomic Markers for Patients with Cardiovascular Disease Project # [id number] Plant Operations Vice President: Rachna Manley MD [phone] Type 2 diabetes mellitus wit h hemoglobin [...] mRNA, LNP-s, No Pre serve, 2-Dose Series ([employer]) 10/06/2021,01/05/2021,12/09/2020 COVID-19, LNP-s, No Preserve , Angus-sucrose, Ages 12+ ([employer]) 03/10/2022 Covid-19, Mrna, Lnp-s, Pf, B ivalent, [...] Don MD [address] [place] [address] 06/07/2023 Surgery Endoscopy Adyran Don MD [address] [place] [address] COLONOSCOPY FLEXIBLE PROXIMAL DIAGNOSTIC 06/17/2023 Office Visit Pharmacy [facility] [place] [address] [place] [address] 06/29/2023 Therapy Psychology Beni Mares, PhD [address] [facility] [place] [address] 07/28/2023 Office Visit Family Medicine Bartolome Villa DO [address] [place] [address] 09/23/2023 Nurse Only Ancillary [place], [facility] [place] [address] [place] [address] 10/24/2023 Office Visit Neurology Izzy Hughes MD [address] [place] [address] 11/18/2023 Office Visit Cardiology Chema [place]den MD [address] [place] [address] 02/23/2024 Office Visit Rheumatology Beni Fernandez MD [address] [facility] [place] [address] Scheduled Procedures Name Priority Associated Diagnoses Date/Ti [...] Additional history exists CKD HGB USE SMARTSET 34342 09/09/202309/09, 09/09/2022, 06/04/2022, Additional history exists Depression Screening, Annual for Pts 12 and Over 09/22/2023 09/22/2022 GFR 10/21/2023 04/20/2023, 05/11, 11/17/2021, Additional history exists HbA1c 10/21/2023 04/20/2023, 05/11, 12/07/2021, Additional history exists Mammogram 04/08/2024 04/08/2023, 03/11, 01/29/2021, Additional history exists Albumin/Creatinine Ratio 04/20/2024 023, 03/25/2022, 10/30/2020, Additional history exists CKD PHOS USE SMARTSET 87841 04/20/202404/09, 11/17/2021, 03/26/2020, Additional history exists DXA Scan 11/09/2028 11/09/2021, 12/27/2016 DTaP,Tdap,and Td Vaccines (3 - Td or Tdap) 09/13/2029 09/13/2019, 07/30/2009, 01/09/1996, Additional history exists Pneumococcal Vaccine: 65+ Years Completed 05/09/2018, 11/25/2016, 07/18/2006 Zoster Vaccines Completed 06/25/2020, 03/10, 07/07/2015 COVID-19 Vaccine Completed 07/13/2022, 10/2021, 10/06/2021, Additional history exists LUNG CANCER SCREENING - USE SMARTSET 77803 Completed 02/15/2023, 04/06/2022, 05/09/2020, Additional history exists [...] and were consensually agreed upon. Care Teams Population Health Manager Relationship Specialty Start Date End Date Bartolome Villa DO [address] [place] [address] PCP - General Family Medicine 02/16/23 documented as of this encounter
--- OUTSIDE RECORDS SUMMARY | 2023-10-27 07:06 | External Medical Summary | Summary of Care ---
Author Name Unknown Organization [facility] Address [address] [facility] [address] Phone [phone] Care Team Providers Care Nurse Executive Name Role Phone Bartolome Villa DO Primary Care Provider Reason for Visit * Reason Onset Date Comments Health Maintenance 05/19/2023 Encounter Details Date Type Department Care Team Description 05/19/2023 Telephone Family Practice [facility] [address] [place] [address] Bartolome Villa DO [address] [place] [address] Health Maintenance Allergies Active Allergy Reactions Severity Noted Date Comments Iodinated Contrast Media Itching 08/18/2011 Sitagliptin Phosphate Other (Please comment) 03/07/2013 pancreatitis Niacin High 06/14/2019 Other reaction(s): HOT/BURNING FEELING documented as of this encounter (statuses as of 05/19/2023) Medications Medication Sig Dispensed Refills Start Date [...] 100 g 11 05/09/2018 Active Glucose Blood ([employer]CH ULTRA BLUE) STRPIndications:Typ e 2 diabetes [...] DAY 90 Tablet 3 12/06/2022 Active PEG 1198-KRy-UeVzg-NaCl -NaSulf 236 GM Oral Solution Reconstituted Please take according to Colonoscopy prep instructions. 4000 mL 0 01/21/2023 Active NovoLOG FlexPen 100 UNIT/ML Subcutaneous Solution Pen-injector INJECT 8-12 UNITS PRIOR TO EACH MEAL -EXTRA IF NEEDED BASED ON BLOOD SUGAR 30 mL 1 02/06/2023 Active Nystatin 422151 UNIT/GM External Cream Apply topically to affected [...] Oral Tablet Extended Release 24 Hour (Ultram ER)Indications:[place] leonor osteoarthritis of both hands Take 1 Tablet by mouth in the morning and 1 Tablet before bedtime. 60 Tablet 0 05/17/2023 Active documented as of this encounter (statuses as of 05/19/2023) Active Problems Problem Noted Date Moderate aortic valve stenosis VINCE (obstructive sleep apnea) 08/20/2021 Chronic kidney disease, stage 3b 021 Overview: Per CKD protocol Coronary artery disease invo lving [place] coronary artery of [place] heart without angina pectoris 02/13/2019 Chronic systolic heart failure 9 Type 2 diabetes mellitus with hemoglobin A1c goal of less than 8.0% 02/02/2019 HTN, goal below 130/80 12/15/2015 Overview: Per HTN Protocol #27. Old CO (myocardial infarction) 5 Dyslipidemia 11/15/2012 Peripheral vascular disease 07/30/2009 S/P angioplasty with stent 08/09/2007 Bicuspid aortic valve Generalized osteoarthritis Fibromyalgia documented as of this encounter (statuses as of 05/19/2023) Resolved Problems Problem Noted Date Resolved Date [...] DELETE [facility] DETECT Study: Project # [id number], Forest Patrolman: Jona Mckeon, PhD. SUMMARY: Goal: Establish test [...] contact study staff at ; after hours Forest Patrolman via the [facility] single pointed operator . Please contact study team before resolving/deleting from patients problem list. Study phone number: [phone]. Diagnosis changed due to Research Module. Go to Snapshot for study details. Encounter for examination fo r normal comparison and control in clinical research program 02/05/2019 06/10/2022 Overview: DO NOT DELETE - [facility] DETECT Study: Project # [id number], Forest Patrolman: Vipin Carvalho, MS, MPH. SUMMARY: Goal: Establish [...] contact study staff at ; after hours Forest Patrolman via the [facility] hospital single pointed operator . - Please contact study team before resolving/deleting from patients problem list. Study phone number: [phone]. Diagnosis changed due to Research Module. Go [...] 08/01/2008 Overview: Study Titile: Event Registry Project #[id number] PI: Rachna Manley MD Please call [phone] with study related questions [employer] Other*[id number] 200611/16/2016 Overview: Study Title: Genomic Markers for Patients with Cardiovascular Disease Project # [id number] Forest Patrolman: Rachna Manley MD [phone] Type 2 diabetes mellitus wit h hemoglobin A1c goal of less than 7.0% 11/15/2005 08/07/2009 Overview: Per Diabetes Taxonomy. ICD-10 update of inactive term Spondylolisthesis 05/11/2004 12/30/2021 HTN, goal below 140/90 12/08/2000 0 Overview: Per HTN Taxonomy. S/P total knee replacement, left 04/05/2023 Erosive osteoarthritis of both hands 04/05/2023 documented as of this encounter (statuses as of 05/19/2023) Immunizations Name Administration Dates Next Due COVID-19 mRNA, LNP-s, No Pre serve, 2-Dose Series (Kites) 10/06/2021,01/05/2021,12/09/2020 COVID-19, LNP-s, No Preserve , Angus-sucrose, Ages 12+ (Kites) 03/10/2022 Covid-19, Mrna, Lnp-s, Pf, B ivalent, 30 Mcg, IM, 12 yrs and above (Kites) 07/13/2022 Pneumococcal Conjugate Vacc, 13 Valent (Prevnar) [...] encounter Miscellaneous Notes * Telephone Encounter - Marissa Riddle LPN - 05/19/2023 10:58 AM EDT Care Gaps Comprehensive Care Outreach Last Office/Telemedicine Visit: 04/20/2023 (in office), 07/05/2022 (telemedicine) Next Office Visit: 07/28/2023 Hemoglobin AIC Results: Lab Results Component Value Date/Time HEMOGLOBIN A1C - [facility] 8.3 (H) 04/20/2023 12:54 PM HEMOGLOBIN A1C - [facility] 7.9 (H) 06/04/2022 11:16 AM HEMOGLOBIN A1C - [facility] 8.6 (H) 12/07/2021 11:50 AM HEMOGLOBIN A1C - [facility] 8.5 (H) 10/30/2020 01:02 PM HEMOGLOBIN A1C - [facility] 8.7 (H) 03/26/2020 10:11 AM HEMOGLOBIN A1C - [facility] 7.6 (H) 09/13/2019 12:23 PM Reviewed Health Maintenance below: Health Maintenance Topic Date Due COLONOSCOPY-EVERY 2 YRS AGES 18-100 08/29/2021 DIABETES-FOOT EXAM 06/03/2022 Influenza Vaccine (FLU shot) (1) 06/10/2023 DIABETES-EYE EXAM 08/19/2023 CKD HGB USE SMARTSET 26254 09/09/2023 Depression Screening, Annual for Pts 12 and Over 09/22/2023 Colon already scheduled awv already done Eye Tele eye Care Gap Outreach Action Taken: Spoke to patient documented in this encounter Plan of Treatment Upcoming Encounters Date Type Specialty Care Team Description 06/07/2023 Hospital Encounter Endoscopy Adryan Don MD [address] [place] [address] 06/07/2023 Surgery Endoscopy Adryan Don MD [address] [place] [address] COLONOSCOPY FLEXIBLE PROXIMAL DIAGNOSTIC 06/17/2023 Office Visit Pharmacy [facility] [address] [place] [address] 06/29/2023 Therapy Psychology Beni Mares, PhD [address] [place] [address] 07/28/2023 Office Visit Family Medicine Bartolome Villa DO [address] [place] [address] 09/23/2023 Nurse Only Ancillary Nurse [facility] [address] [place] [address] 10/24/2023 Office Visit Neurology Izzy Hughes MD [address] [facility] [place] [address] 11/18/2023 Office Visit Cardiology Chema Hayden MD [address] [place] [address] 02/23/2024 Office Visit Rheumatology Beni Fernandez MD [address] [place] [address] [place] [address] Scheduled Procedures Name Priority Associated Diagnoses Date/Ti [...] Additional history exists CKD HGB USE SMARTSET 04942 09/09/202309/09, 09/09/2022, 06/04/2022, Additional history exists Depression Screening, Annual for Pts 12 and Over 09/22/2023 09/22/2022 GFR 10/21/2023 04/20/2023, 05/11, 11/17/2021, Additional history exists HbA1c 10/21/2023 04/20/2023, 05/11, 12/07/2021, Additional history exists Mammogram 04/08/2024 04/08/2023, 03/11, 01/29/2021, Additional history exists Albumin/Creatinine Ratio 04/20/2024 023, 03/25/2022, 10/30/2020, Additional history exists CKD PHOS USE SMARTSET 00955 04/20/202404/09, 11/17/2021, 03/26/2020, Additional history exists DXA Scan 11/09/2028 11/09/2021, 12/27/2016 DTaP,Tdap,and Td Vaccines (3 - Td or Tdap) 09/13/2029 09/13/2019, 07/30/2009, 01/09/1996, Additional history exists Pneumococcal Vaccine: 65+ Years Completed 05/09/2018, 11/25/2016, 07/18/2006 Zoster Vaccines Completed 06/25/2020, 03/10, 07/07/2015 COVID-19 Vaccine Completed 07/13/2022, 10/2021, 10/06/2021, Additional history exists LUNG CANCER SCREENING - USE SMARTSET 42275 Completed 02/15/2023, 04/06/2022, 05/09/2020, Additional history exists [...] and were consensually agreed upon. Care Teams Nurse Executive Relationship Specialty Start Date End Date Bartolome Villa DO [address] [place] [address] PCP - General Family Medicine 02/16/23 documented as of this encounter
--- OUTSIDE RECORDS SUMMARY | 2023-10-27 07:06 | External Medical Summary | Summary of Care ---
Author Name Unknown Organization [facility] [address] [facility] [address] Phone [phone] Care Team Providers Care Tissue Recovery Technician Name Role Phone Sumit Villa DO Primary Care Provider Reason for Visit * Reason Onset Date Comments Medication Refill 05/20/2023 Encounter Details Date Type Department Care Team Description 05/20/2023 Refill Family Practice [facility] [address] [place] [address] Elif Falcon MD [address] [place] [address] Lumbar degenerative disc disease; Lumbar radiculopathy, right Allergies Active Allergy Reactions Severity Noted Date Comments Iodinated Contrast Media Itching 08/18/2011 Sitagliptin Phosphate Other (Please comment) 03/07/2013 pancreatitis Niacin High 06/14/2019 Other reaction(s): HOT/BURNING FEELING documented as of this encounter (statuses as of 05/25/2023) Medications Medication Sig Dispensed Refills Start Date [...] A1c goal of less than 7.0% ([facility]) TEST FOUR TIMES DAILY AND UP TO 8 TIMES DAILY IF NEEDED FOR FLUCTUATING SUGARS E11.9 600 Strip 0 8 Active Nitroglycerin 0.4 MG Sublingual Tablet Sublingual (Nitrostat)Indicati ons:Chest pain Place 1 Tab under the tongue every 5 minutes as needed for Pain, Chest. Up to 3 doses in 15 minutes. 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 0 Active Docusate Sodium 50 MG Oral Capsule (Colace) Take 3 Capsules by mouth as needed for Constipation. 0 Active predniSONE 5 MG Oral Tablet (Deltasone)Indicati ons:Erosive osteoarthritis of both hands,Gout of left wrist, unspecified cause, unspecified chronicity TAKE 1 TABLET BY MOUTH EVERY DAY DIRECTED 90 Tablet 3 2 Active Metoprolol Succinate ER 100 MG Oral Tablet Extended Release 24 Hour (toPROL XL)Indications:Old myocardial infarct TAKE 1 TABLET BY MOUTH EVERY EVENING 90 Tablet 3 2 Active amLODIPine Besylate 5 MG Oral Tablet (Norvasc) TAKE 1 TABLET BY MOUTH EVERY DAY 90 Tablet 3 2 Active Furosemide 20 MG Oral Tablet (Lasix)Indications: Heart failure, systolic, due to CAD ([facility]) Take 40 mg by mouth on Mondays, [...] A1c goal of less than 7.0% ([facility]) Use with insulin twice daily as directed. [...] EVERY DAY 90 Tablet 3 3 Active Rosuvastatin Calcium 40 MG Oral Tablet (Crestor)Indication s:Dyslipidemia, goal LDL below 70 TAKE 1 TABLET BY MOUTH EVERY DAY 90 Tablet 3 3 Active PEG 0261-XWr-LtCpp-NaCl -NaSulf 236 GM Oral Solution Reconstituted Please take according to Colonoscopy prep instructions. 4000 mL 0 3 Active NovoLOG FlexPen 100 UNIT/ML Subcutaneous Solution Pen-injector INJECT 8-12 UNITS PRIOR TO EACH MEAL -EXTRA IF NEEDED BASED ON BLOOD SUGAR 30 mL 1 3 Active Nystatin 632010 UNIT/GM External Cream Apply topically to affected area 2 times a day. Apply to vulva 2 times a day 45 g 1 3 Active Additional Information Patient taking differently:TopicalPRN, Apply to vulva 2 times a day, Reported on 04/20/2023 Semaglutide(0.25 or 0.5MG/DOS) 2 MG/3ML Solution Pen-injector (Ozempic) Inject 0.25 mg weekly for 4 weeks and then 0.50 mg weekly 3 mL 5 3 Active Additional Information Patient not taking.Reported on 04/20/2023 Estradiol 0.1 MG/GM Vaginal Cream (Estrace) To vulva daily for 4 weeks and then 2 times a week 42.5 g 3 3 Active Omeprazole 40 MG Oral Capsule Delayed Release (PriLOSEC) TAKE 1 CAPSULE BY MOUTH EVERY DAY 1 HOUR BEFORE THE FIRST MEAL OF THE DAY 90 Capsule 3 3 Active traMADol HCl 50 MG Oral Tablet [...] EVERY MORNING 90 Tablet 3 3 Active oxyCODONE HCl 5 MG Oral Tablet (Oxy IR) Take 1 Tablet by mouth every 8 hours as needed for Pain, Severe. 20 Tablet 0 3 Active traMADol HCl ER 100 MG Oral Tablet Extended Release 24 Hour (Ultram ER)Indications:[place] leonor osteoarthritis of both hands Take 1 Tablet by mouth in the morning and 1 Tablet before bedtime. 60 Tablet 0 3 Active Gabapentin 300 MG Oral Capsule (Neurontin)Indicati ons:Lumbar degenerative disc disease,Lumbar radiculopathy, right TAKE 1 CAPSULE BY MOUTH EVERY MORNING AND 2 CAPSULES EVERY EVENING 90 Capsule 11 3 Active Gabapentin 300 MG Oral Capsule (Neurontin)Indicati ons:Lumbar degenerative disc disease,Lumbar radiculopathy, right TAKE 1 CAPSULE BY MOUTH EVERY MORNING AND 2 CAPSULES EVERY EVENING 90 Capsule 11 2 05/20/20 23 Discontinu ed(Refill) documented as of this encounter (statuses as of 05/25/2023) Active Problems Problem Noted Date Moderate aortic valve stenosis 1 VINCE (obstructive sleep apnea) 08/20/2021 Chronic kidney disease, stage 3b 021 Overview: Per CKD protocol Coronary artery disease invo lving [place] coronary artery of [place] heart without angina pectoris 02/13/2019 Chronic systolic heart failure 9 Type 2 diabetes mellitus with hemoglobin A1c goal of less than 8.0% 02/02/2019 HTN, goal below 130/80 12/15/2015 Overview: Per HTN Protocol #27. Old AL (myocardial infarction) 5 Dyslipidemia 11/15/2012 Peripheral vascular disease 07/30/2009 S/P angioplasty with stent 08/09/2007 Bicuspid aortic valve Generalized osteoarthritis Fibromyalgia documented as of this encounter (statuses as of 05/25/2023) Resolved Problems Problem Noted Date Resolved Date [...] program 02/05/2019 05/12/2020 Overview: [facility] Study: Project # [id number], Building Manager: Jona Mckeon, PhD. SUMMARY: Goal: Establish [...] contact study staff at ; after hours Building Manager via the [facility] hospital dubbing machine operator . Please contact study team before resolving/deleting from patients problem list. Study phone number: [phone]. Diagnosis changed due to Research Module. Go to Snapshot for study details. Encounter for examination fo r normal comparison and control in clinical research program 02/05/2019 06/10/2022 Overview: DO NOT DELETE - [facility] Study: Project # [id number], Building Manager: Vipin Carvalho, MS, MPH. SUMMARY: Goal: [...] contact study staff at ; after hours Building Manager via the [facility] hospital dubbing machine operator . - Please contact study team before resolving/deleting from patients problem list. Study phone number: [phone]. Diagnosis changed due to Research Module. Go [...] 12/30/2021 Hiatal hernia 06/21/2018 12/30/2021 History of AL (myocardial infarction) 05/09/2018 12/30/2021 Vulvar lesion 05/09/2018 [...] 08/01/2008 Overview: Study Titile: Event Registry Project #[id number] PI: Rachna Manley MD Please call [phone] with study related questions [employer] Other*[id number] 200611/16/2016 Overview: Study Title: Genomic Markers for Patients with Cardiovascular Disease Project # [id number] Building Manager: Rachna Manley MD [phone] Type 2 diabetes mellitus wit h hemoglobin A1c goal of less than 7.0% 11/15/2005 08/07/2009 Overview: Per Diabetes Taxonomy. ICD-10 update of inactive term Spondylolisthesis 05/11/2004 12/30/2021 HTN, goal below 140/90 12/08/2000 0 Overview: Per HTN Taxonomy. S/P total knee replacement, left 04/05/2023 Erosive osteoarthritis of both hands 04/05/2023 documented as of this encounter (statuses as of 05/25/2023) Immunizations Name Administration Dates Next Due COVID-19 mRNA, LNP-s, No Pre serve, 2-Dose Series ([employer]) 10/06/2021,01/05/2021,12/09/2020 COVID-19, LNP-s, No Preserve , Angus-sucrose, Ages 12+ (Pfizer) 03/10/2022 Covid-19, Mrna, Lnp-s, Pf, B ivalent, 30 Mcg, IM, 12 yrs and above ([employer]) 07/13/2022 Pneumococcal Conjugate Vacc, 13 Valent (Prevnar) [...] Telephone Encounter - Sumit Villa DO - 05/25/2023 6:22 AM EDTSigned Prescriptions: Disp Refills Gabapentin 300 MG Oral Capsule (Neurontin) 90 Cap*11 Sig: TAKE 1 CAPSULE BY MOUTH EVERY MORNING AND 2 CAPSULES EVERY EVENING Authorizing Provider: SUMIT VILLA * Telephone Encounter - Kenia Perez LPN - 05/23/2023 9:25 AM EDTPending Prescriptions: Disp Refills Gabapentin 300 MG Oral Capsule (Neurontin) 90 Cap*11 Sig: TAKE 1 CAPSULE BY MOUTH EVERY MORNING AND 2 CAPSULES EVERY EVENING * Telephone Encounter - Kenia Perez LPN - 05/23/2023 9:23 AM EDT Did you pend patient's preferred pharmacy and medication before forwarding?yes Pharmacy: [id number] [place] Pending Prescriptions: Disp Refills Gabapentin 300 MG Oral Capsule (Neurontin)90 Cap*11 Sig: TAKE 1 CAPSULE BY MOUTH EVERY MORNING AND 2 CAPSULES EVERY EVENING Last Visit: 04/20/2023 (in office), 07/05/2022 (telemedicine) Next Visit: 07/28/2023 If no future appointments scheduled, and last appointment is greater than a year ago, please schedule patient for a follow-up appointment Last date the medication was ordered: 04/09/22 Is this request for a controlled substance?No Urine Drug Screen: Results for orders placed or performed in visit on 06/03/21 TOXICOLOGY, URINESCREEN Result Value Amphetamine Negative Benzodiazepines Negative Cannabinoids [...] AM HGBA1C 8.5 (H) 10/30/2020 01:02 PM * Telephone Encounter - Addi Akhtar - 05/20/2023 8:17 PM EDTPending Prescriptions: Disp Refills Gabapentin 300 MG Oral Capsule (Neurontin) 90 Cap*11 Sig: TAKE1 CAPSULE BY MOUTH EVERY MORNING AND 2 CAPSULES EVERY EVENING documented in this encounter Plan of Treatment Upcoming Encounters Date Type Specialty Care Team Description 06/07/2023 Hospital Encounter Endoscopy Adryan Don MD [address] [place] [address] 06/07/2023 Surgery Endoscopy Adryan Don MD [address] [place] [address] COLONOSCOPY FLEXIBLE PROXIMAL DIAGNOSTIC 06/17/2023 Office Visit Pharmacy [facility] [address] [place], [place] [address] 06/29/2023 Therapy Psychology Beni Mares, PhD [address] [place] [address] 07/28/2023 Office Visit Family Medicine Sumit Villa DO [address] [place] [address] 09/23/2023 Nurse Only Ancillary [facility] [address] [place] [address] 10/24/2023 Office Visit Neurology Izzy Hughes MD [address] [place] [address] 11/18/2023 Office Visit Cardiology Chema Hayden MD [address] [place] [address] 02/23/2024 Office Visit Rheumatology Beni Fernandez MD [facility] [place] [address] Scheduled Procedures Name Priority Associated Diagnoses Date/Ti [...] Additional history exists CKD HGB USE SMARTSET 30598 09/09/202309/09, 09/09/2022, 06/04/2022, Additional history exists Depression Screening, Annual for Pts 12 and Over 09/22/2023 09/22/2022 GFR 10/21/2023 04/20/2023, 05/11, 11/17/2021, Additional history exists HbA1c 10/21/2023 04/20/2023, 05/11, 12/07/2021, Additional history exists Mammogram 04/08/2024 04/08/2023, 03/11, 01/29/2021, Additional history exists Albumin/Creatinine Ratio 04/20/2024 023, 03/25/2022, 10/30/2020, Additional history exists CKD PHOS USE SMARTSET 39985 04/20/202404/09, 11/17/2021, 03/26/2020, Additional history exists DXA Scan 11/09/2028 11/09/2021, 12/27/2016 DTaP,Tdap,and Td Vaccines (3 - Td or Tdap) 09/13/2029 09/13/2019, 07/30/2009, 01/09/1996, Additional history exists Pneumococcal Vaccine: 65+ Years Completed 05/09/2018, 11/25/2016, 07/18/2006 Zoster Vaccines Completed 06/25/2020, 03/10, 07/07/2015 COVID-19 Vaccine Completed 07/13/2022, 10/2021, 10/06/2021, Additional history exists LUNG CANCER SCREENING - USE SMARTSET 81674 Completed 02/15/2023, 04/06/2022, 05/09/2020, Additional history exists [...] as of this encounter Visit Diagnoses Diagnosis Lumbar degenerative disc disease Degeneration of lumbar or lumbosacral intervertebral disc Lumbar radiculopathy, right Special screening for malignant neoplasms, colon documented in this encounter Advance Directives Latest Code Status on File Code Status Date Activated Date Inactivated Comments Full Code 07/04/2018 11:03 AM 07/04/2018 5:07 PM This order reflects the patients wishes and were consensually agreed upon. Care Teams Tissue Recovery Technician Relationship Specialty Start Date End Date Sumit Villa DO [address] [place] [address] PCP - General Family Medicine 02/16/23 documented as of this encounter
--- OUTSIDE RECORDS SUMMARY | 2023-10-27 07:06 | External Medical Summary | Summary of Care ---
Author Name Unknown Organization [facility] [address] [facility] [address] Phone [phone] Care Team Providers Care Spray Gunner Name Role Phone Benoit Villameghan Beeирина Primary Care Provider Reason for Visit * Reason Onset Date Comments Medication Refill 04/15/2023 Medication Question 04/15/2023 Encounter Details Date Type Department Care Team Description 04/15/2023 Refill Pharmacy, [facility] [address] [facility] [place] [address] Tosha Liu, [facility] [place] [id number] Allergies Active Allergy Reactions Severity Noted Date Comments Iodinated Contrast Media Itching 08/18/2011 Sitagliptin Phosphate Other (Please comment) 03/07/2013 pancreatitis Niacin High 06/14/2019 Other reaction(s): HOT/BURNING FEELING documented as of this encounter (statuses as of 05/24/2023) Medications Medication Sig Dispensed Refills Start Date [...] hemoglobin A1c goal of less than 7.0% ([facility]) TEST FOUR TIMES DAILY AND UP TO 8 TIMES DAILY IF NEEDED FOR FLUCTUATING SUGARS E11.9 600 Strip 0 07/07/20 18 Active Nitroglycerin 0.4 MG Sublingual Tablet Sublingual (Nitrostat)Indicat ions:Chest pain Place 1 Tab under the tongue every 5 minutes as needed for Pain, Chest. Up to 3 doses in 15 minutes. 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 [...] 90 Tablet 3 12/06/19 23 Active PEG 1194-TTb-EjXjw-NaC l-NaSulf 236 GM Oral Solution Reconstituted Please take according to Colonoscopy prep instructions. 4000 mL 0 01/22/20 23 Active NovoLOG FlexPen 100 UNIT/ML Subcutaneous Solution Pen-injector INJECT 8-12 UNITS PRIOR TO EACH MEAL -EXTRA IF NEEDED BASED ON BLOOD SUGAR 30 mL 1 02/07/20 23 Active Nystatin 280977 UNIT/GM External Cream Apply topically to affected [...] week 42.5 g 3 04/22/20 23 Active Estradiol (ESTRACE) 0.1 MG/GM vaginal cream To vulva daily for 4 weeks and then 2 times a week 42.5 g 3 01/30/20 20 023 Discontinued(Re fill) Prasugrel HCl 10 MG Oral Tablet (Effient) Take by mouth 1 Tablet in the morning. 90 Tablet 3 02/09/20 22 023 Discontinued traMADol HCl ER 100 MG Oral Tablet Extended Release 24 Hour (Ultram ER)Indications:Ero sive osteoarthritis of both hands Take 1 Tablet by mouth in the morning and 1 Tablet before bedtime. 60 Tablet 0 03/28/20 23 023 Discontinued(Re fill) oxyCODONE HCl 5 MG Oral Tablet (Oxy IR) Take 1 Tablet by mouth every 8 hours as needed for Pain, Severe. 20 Tablet 0 04/06/20 23 023 Discontinued(Re fill) documented as of this encounter (statuses as of 05/24/2023) Active Problems Problem Noted Date Moderate aortic valve stenosis 1 VINCE (obstructive sleep apnea) 08/20/2021 Chronic kidney disease, stage 3b 021 Overview: Per CKD protocol Coronary artery disease invo [place]ving [place] coronary artery [place] heart without angina pectoris 02/13/2019 Chronic systolic heart failure 9 Type 2 diabetes mellitus with hemoglobin A1c goal of less than 8.0% 02/02/2019 HTN, goal below 130/80 12/15/2015 Overview: Per HTN Protocol #27. Old [place] (myocardial infarction) 5 Dyslipidemia 11/15/2012 Peripheral vascular disease 07/30/2009 S/P angioplasty with stent 08/09/2007 Bicuspid aortic valve Generalized osteoarthritis Fibromyalgia documented as of this encounter (statuses as of 05/24/2023) Resolved Problems Problem Noted Date Resolved Date [...] DELETE [facility] DETECT Study: Project # [id number], Dry Chain Offbearer: Jona Mckeon, PhD. SUMMARY: Goal: Establish test [...] study staff at ; after hours Dry Chain Offbearer via the [facility] hospital centrifuge operator . Please contact study team before resolving/deleting from patients problem list. Study phone number: [phone]. Diagnosis changed due to Research Module. Go to Snapshot for study details. Encounter for examination fo r normal comparison and control in clinical research program 02/05/2019 06/10/2022 Overview: DO NOT DELETE - [facility] DETECT Study: Project # [id number], Dry Chain Offbearer: Vipin Carvalho, MS, MPH. SUMMARY: Goal: Establish [...] study staff at ; after hours Dry Chain Offbearer via the [facility] hospital centrifuge operator . - Please contact study team before resolving/deleting from patients problem list. Study phone number: [phone]. Diagnosis changed due to Research Module. Go to FarmBot for study details. Type 2 diabetes mellitus [...] 08/01/2008 Overview: Study Titile: Event Registry Project #[id number] PI: Rachna Manley MD Please call [phone] with study related questions [employer] Other*[id number] 200611/16/2016 Overview: Study Title: Genomic Markers for Patients with Cardiovascular Disease Project # [id number] Dry Chain Offbearer: Rachna Manley MD [phone] Type 2 diabetes mellitus wit h hemoglobin A1c goal of less than 7.0% 11/15/2005 08/07/2009 Overview: Per Diabetes Taxonomy. ICD-10 update of inactive term Spondylolisthesis 05/11/2004 12/30/2021 HTN, goal below 140/90 12/08/2000 0 Overview: Per HTN Taxonomy. S/P total knee replacement, left 04/05/2023 Erosive osteoarthritis of both hands 04/05/2023 documented as of this encounter (statuses as of 05/24/2023) Immunizations Name Administration Dates Next Due COVID-19 mRNA, LNP-s, No Pre serve, 2-Dose Series ([place]) 10/06/2021,01/05/2021,12/09/2020 COVID-19, LNP-s, No Preserve , Angus-sucrose, Ages 12+ (Pfizer) 03/10/2022 Covid-19, Mrna, Lnp-s, Pf, B ivalent, 30 Mcg, IM, 12 yrs and above ([place]) 07/13/2022 Pneumococcal Conjugate Vacc, 13 Valent (Prevnar) [...] encounter Miscellaneous Notes * Telephone Encounter - VINCE Davis - 05/24/2023 2:39 PM EDTSigned Prescriptions: Disp Refills Estradiol 0.1 MG/GM Vaginal Cream (Estrace)42.5 g 3 Sig: To vulva daily for 4 weeks and then 2 times a weekAuthorizing Provider: SHAYE RIOS * Telephone Encounter - VINCE Davis - 05/24/2023 2:38 PM EDT LMOM - when pt calls back please schedule first available, Private spot ok * Telephone Encounter - Elva Staton RN - 04/22/2023 2:17 PM EDT Confirmed with Che BAcker, one gram twice a week. LM on voicemail at pharmacy with this info * Telephone Encounter - Lauren Jones - 04/22/2023 10:26 AM EDT Pharmacy is calling because pt's prescription for Estradiol 0.1 MG/GM Vaginal Cream (Estrace) was sent with unclear directions stating "To vulva daily for 4 weeks and then 2 times a week". Please clarify the directions for this medication and send a new prescription to [id number] [facility] needing to know how many grams per application for insurance billing Thank you, Lauren Jones, clerical and office support workers II Lamp Assembler [facility] ([facility]) (Formerly Telepharmacy) 04/22/2023, 10:26 AM * Telephone Encounter - Evla Staton RN - 04/22/2023 9:48 AM EDTPending Prescriptions: Disp Refills Estradiol 0.1 MG/GM Vaginal Cream (Estrace)42.5 g 3 Sig: To vulva daily for 4 weeks and then 2 times a week * Telephone Encounter - Elva Staton RN - 04/22/2023 9:43 AM EDT Pt will need scheduled for annual exam (please use private slot due to h/o DEREJE). Will have Dr. Rios review for med refill until seen. Message to Opal. * Telephone Encounter - Nadege Curtis LPN - 04/15/2023 3:09 PM EDT Patient * Telephone Encounter - Tosha Liu RPh - 04/15/2023 2:56 PM EDT Patient requesting a refill of estradiol cream. Tosha Liu, Pharm D Clinical Pharmacist 04/15/2023, 2:57 PM documented in this encounter Plan of Treatment Upcoming Encounters Date Type Specialty Care Team Description 06/07/2023 Hospital Encounter Endoscopy Adryan Don MD [address] [place] [address] 06/07/2023 Surgery Endoscopy Adryan Don MD [address] [place] [address] COLONOSCOPY FLEXIBLE PROXIMAL DIAGNOSTIC 06/17/2023 Office Visit [facility] [address] [place] [address] 06/29/2023 Therapy Psychology Beni Mares, PhD [address] [place] [address] 07/28/2023 Office Visit Family Medicine Bartolome Villa DO [address] [place] [address] 09/23/2023 Nurse Only Ancillary Alejo, [facility] [address] [place] [address] 10/24/2023 Office Visit Neurology Izzy Hughes MD [address] [place] [address] 11/18/2023 Office Visit Cardiology Chema Hayden MD [address] [place] [address] 02/23/2024 Office Visit Rheumatology Beni Fernandez MD [address] [facility] [place], [place] [address] Scheduled Procedures Name Priority Associated Diagnoses Date/Ti [...] Additional history exists CKD HGB USE SMARTSET 82179 09/09/202309/09, 09/09/2022, 06/04/2022, Additional history exists Depression Screening, Annual for Pts 12 and Over 09/22/2023 09/22/2022 GFR 10/21/2023 04/20/2023, 05/11, 11/17/2021, Additional history exists HbA1c 10/21/2023 04/20/2023, 05/11, 12/07/2021, Additional history exists Mammogram 04/08/2024 04/08/2023, 03/11, 01/29/2021, Additional history exists Albumin/Creatinine Ratio 04/20/2024 023, 03/25/2022, 10/30/2020, Additional history exists CKD PHOS USE SMARTSET 18822 04/20/202404/09, 11/17/2021, 03/26/2020, Additional history exists DXA Scan 11/09/2028 11/09/2021, 12/27/2016 DTaP,Tdap,and Td Vaccines (3 - Td or Tdap) 09/13/2029 09/13/2019, 07/30/2009, 01/09/1996, Additional history exists Pneumococcal Vaccine: 65+ Years Completed 05/09/2018, 11/25/2016, 07/18/2006 Zoster Vaccines Completed 06/25/2020, 03/10, 07/07/2015 COVID-19 Vaccine Completed 07/13/2022, 10/2021, 10/06/2021, Additional history exists LUNG CANCER SCREENING - USE SMARTSET 61708 Completed 02/15/2023, 04/06/2022, 05/09/2020, Additional history exists [...] and were consensually agreed upon. Care Teams Spray Gunner Relationship Specialty Start Date End Date Bartolome Villa DO [address] [place] [address] PCP - General Family Medicine 02/16/23 documented as of this encounter
--- OUTSIDE RECORDS SUMMARY | 2023-10-27 07:06 | External Medical Summary | Summary of Care ---
Author Name Unknown Organization [facility] [address] [facility] [address] Phone [phone] Care Team Providers Care Coin Machine Collector Supervisor Name Role Phone VillaBenoitSumitmeghan Beeирина Primary Care Provider Reason for Visit * Reason Onset Date Comments Medication Refill 05/14/2023 Encounter Details Date Type Department Care Team Description 05/14/2023 Refill Family Practice [facility] [address] [place] [address] Blake Nova MD [address] [place] [id number] Allergies Active Allergy Reactions Severity Noted Date Comments Iodinated Contrast Media Itching 08/18/2011 Sitagliptin Phosphate Other (Please comment) 03/07/2013 pancreatitis Niacin High 06/14/2019 Other reaction(s): HOT/BURNING FEELING documented as of this encounter (statuses as of 05/17/2023) Medications Medication Sig Dispensed Refills Start Date [...] 100 g 11 8 Active Glucose Blood ([facility] CardiovascularTOUCH ULTRA BLUE) STRPIndications:Typ e 2 diabetes mellitus with hemoglobin A1c goal of less than 7.0% ([facility]) TEST FOUR TIMES DAILY AND UP TO 8 TIMES DAILY IF NEEDED FOR FLUCTUATING SUGARS E11.9 600 Strip 0 8 Active Nitroglycerin 0.4 MG Sublingual Tablet Sublingual (Nitrostat)Indicati ons:Chest pain Place 1 Tab under the tongue every 5 minutes as needed for Pain, Chest. Up to 3 doses in 15 minutes. 25 Tab 11 1 Active Gabapentin 300 MG Oral Capsule (Neurontin)Indicati ons:Lumbar degenerative disc disease,Lumbar radiculopathy, right TAKE 1 CAPSULE BY MOUTH EVERY MORNING AND 2 CAPSULES EVERY EVENING 90 Capsule 11 2 Active Isosorbide Mononitrate ER 30 MG Oral [...] (Lasix)Indications: Heart failure, systolic, due to CAD ([facility]) Take 40 mg by mouth [...] hemoglobin A1c goal of less than 7.0% ([facility]) Use with insulin twice daily [...] DAY 90 Tablet 3 3 Active PEG 1431-CJe-RiUwf-NaCl -NaSulf 236 GM Oral Solution Reconstituted Please take according to Colonoscopy prep instructions. 4000 mL 0 3 Active NovoLOG FlexPen 100 UNIT/ML Subcutaneous Solution Pen-injector INJECT 8-12 UNITS PRIOR TO EACH MEAL -EXTRA IF NEEDED BASED ON BLOOD SUGAR 30 mL 1 3 Active Nystatin 420453 UNIT/GM External Cream Apply topically to affected [...] for Pain, Severe. 20 Tablet 0 3 05/14/20 23 Discontinu ed(Refill) traMADol HCl ER 100 MG Oral Tablet Extended Release 24 Hour (Ultram ER)Indications:[place] osteoarthritis of both hands Take 1 Tablet by mouth in the morning and 1 Tablet before bedtime. 60 Tablet 0 3 05/16/20 23 Discontinu ed(Refill) documented as of this encounter (statuses as of 05/17/2023) Active Problems Problem Noted Date Moderate aortic valve stenosis 1 VINCE (obstructive sleep apnea) 08/20/2021 Chronic kidney disease, stage 3b 021 Overview: Per CKD protocol Coronary artery disease invo lving [place] coronary artery of [place] heart without angina pectoris 02/13/2019 Chronic systolic heart failure 9 Type 2 diabetes mellitus with hemoglobin A1c goal of less than 8.0% 02/02/2019 HTN, goal below 130/80 12/15/2015 Overview: Per HTN Protocol #27. Old [place] (myocardial infarction) 5 Dyslipidemia 11/15/2012 Peripheral vascular disease 07/30/2009 S/P angioplasty with stent 08/09/2007 Bicuspid aortic valve Generalized osteoarthritis Fibromyalgia documented as of this encounter (statuses as of 05/17/2023) Resolved Problems Problem Noted Date Resolved Date [...] [facility] DETECT Study: Project # [id number], Top Spotter: Jona Mckeon, PhD. SUMMARY: Goal: Establish test [...] contact study staff at ; after hours Top Spotter via the [facility] scientific process operator . Please contact study team before resolving/deleting from patients problem list. Study phone number: [phone]. Diagnosis changed due to Research Module. Go to Snapshot for study details. Encounter for examination fo r normal comparison and control in clinical research program 02/05/2019 06/10/2022 Overview: DO NOT DELETE - [facility] [place] Study: Project # [id number], Top Spotter: Vipin Carvalho, MS, MPH. SUMMARY: Goal: Establish [...] contact study staff at ; after hours Top Spotter via the [facility] scientific process operator . - Please contact study team before resolving/deleting from patients problem list. Study phone number: [phone]. Diagnosis changed due to Research Module. Go to Counsyl for study details. Type 2 diabetes mellitus [...] 08/01/2008 Overview: Study Titile: Event Registry Project #[id number] PI: Rachna Manley MD Please call [phone] with study related questions [employer] Other*[id number] 200611/16/2016 Overview: Study Title: Genomic Markers for Patients with Cardiovascular Disease Project # [id number] Top Spotter: Rachna Manley MD [phone] Type 2 diabetes mellitus wit h hemoglobin A1c goal of less than 7.0% 11/15/2005 08/07/2009 Overview: Per Diabetes Taxonomy. ICD-10 update of inactive term Spondylolisthesis 05/11/2004 12/30/2021 HTN, goal below 140/90 12/08/2000 0 Overview: Per HTN Taxonomy. S/P total knee replacement, left 04/05/2023 Erosive osteoarthritis of both hands 04/05/2023 documented as of this encounter (statuses as of 05/17/2023) Immunizations Name Administration Dates Next Due COVID-19 mRNA, LNP-s, No Pre serve, 2-Dose Series ([place]) 10/06/2021,01/05/2021,12/09/2020 COVID-19, LNP-s, No Preserve , Angus-sucrose, Ages 12+ (Pfizer) 03/10/2022 Covid-19, Mrna, Lnp-s, Pf, B ivalent, 30 Mcg, IM, 12 yrs and above ([place]) 07/13/2022 Pneumococcal Conjugate Vacc, 13 Valent (Prevnar) [...] Telephone Encounter - Sumit Villa DO - 05/17/2023 10:11 AM EDT Signed Prescriptions: Disp Refills oxyCODONE HCl 5 MG Oral Tablet (Oxy IR) 20 Tab*0 Sig: Take 1 Tablet by mouth every 8 hours as needed for Pain, Severe. Authorizing Provider: SUMIT VILLA * Telephone Encounter - Blake Girard [facility] - 05/15/2023 3:51 PM EDT Pending Prescriptions: Disp Refills oxyCODONE HCl 5 MG Oral Tablet (Oxy IR) 20 Tab*0 Sig: Take 1 Tablet by mouth every 8 hours as needed for Pain, Severe. * Telephone Encounter - Blake Girard [facility] - 05/15/2023 3:50 PM EDT I have reviewed the patients controlled substance dispensing history in the Prescription Drug Monitoring Program in compliance with the [facility] regulations before prescribing a controlled substance. PDMP checked on 05/15/2023. Pending Prescriptions: Disp Refills oxyCODONE HCl 5 MG Oral Tablet (Oxy IR) 20 Tab*0 Sig: Take 1 Tablet by mouth every 8 hours as needed for Pain, Severe. Last Visit: 04/20/2023 (in office), 07/05/2022 (telemedicine) Next Visit: 07/28/2023 Date medication was last filled: 04/06 Date medication is due for refill: 04/12 Pharmacy: [id number] [place] Is this request for a controlled substance? Yes and Urine Drug Screen Not completed Toxicology results: Results for orders placed [...] in Results Review. Please approve if appropriate. Thanks, Blake Girard, PharmD Clinical Pharmacist [facility](formerly telepharmacy) [phone] 05/15/2023, 3:50 PM documented in this encounter Plan of Treatment Upcoming Encounters Date Type Specialty Care Team Description 06/07/2023 Hospital Encounter Endoscopy Adryan Don MD [address] [place] [address] 06/07/2023 Surgery Endoscopy Adryan Don MD [address] [place] [address] COLONOSCOPY FLEXIBLE PROXIMAL DIAGNOSTIC 06/17/2023 Office Visit [facility]acy [facility] [address] [place] [address] 06/29/2023 Therapy Psychology Beni Mares, PhD [address] [facility] [place] [address] 07/28/2023 Office Visit Family Medicine Sumit Villa DO [address] [place] [address] 09/23/2023 Nurse Only Ancillary Alejo, Nurse [facility] [address] [place] [address] 10/24/2023 Office Visit Neurology Izzy Hughes MD [address] [facility] [place] [address] 11/18/2023 Office Visit Cardiology Chema Hayden MD [address] [place] [address] 02/23/2024 Office Visit Rheumatology Beni Fernandez MD [address] [place] [address] Scheduled Procedures Name Priority Associated Diagnoses Date/Ti [...] Additional history exists CKD HGB USE SMARTSET 51853 09/09/202309/09, 09/09/2022, 06/04/2022, Additional history exists Depression Screening, Annual for Pts 12 and Over 09/22/2023 09/22/2022 GFR 10/21/2023 04/20/2023, 05/11, 11/17/2021, Additional history exists HbA1c 10/21/2023 04/20/2023, 05/11, 12/07/2021, Additional history exists Mammogram 04/08/2024 04/08/2023, 03/11, 01/29/2021, Additional history exists Albumin/Creatinine Ratio 04/20/2024 023, 03/25/2022, 10/30/2020, Additional history exists CKD PHOS USE SMARTSET 18154 04/20/202404/09, 11/17/2021, 03/26/2020, Additional history exists DXA Scan 11/09/2028 11/09/2021, 12/27/2016 DTaP,Tdap,and Td Vaccines (3 - Td or Tdap) 09/13/2029 09/13/2019, 07/30/2009, 01/09/1996, Additional history exists Pneumococcal Vaccine: 65+ Years Completed 05/09/2018, 11/25/2016, 07/18/2006 Zoster Vaccines Completed 06/25/2020, 03/10, 07/07/2015 COVID-19 Vaccine Completed 07/13/2022, 10/2021, 10/06/2021, Additional history exists LUNG CANCER SCREENING - USE SMARTSET 37745 Completed 02/15/2023, 04/06/2022, 05/09/2020, Additional history exists [...] and were consensually agreed upon. Care Teams Coin Machine Collector Supervisor Relationship Specialty Start Date End Date Sumit Villa DO [address] [place] [address] PCP - General Family Medicine 02/16/23 documented as of this encounter
[2023-10-27] MEDS ORDERED: diphenhydrAMINE 50 MG/ML VIAL IV ONE (07:07)
--- OUTSIDE RECORDS SUMMARY | 2023-10-27 07:07 | External Medical Summary | Summary of Care ---
Author Name Unknown Organization [facility] Address [address] [place] [address] Phone [phone] Care Team Providers Care Circuit Judge Name Role Phone Sumit Villa DO Primary Care Provider Reason for Visit * Reason Comments eRx-Medication Refill Encounter Details Date Type Department Care Team Description 04/29/2023 Refill Family Practice [facility] [address] [place] [address] Elif Falcon MD [address] [place] [id number] Allergies Active Allergy Reactions Severity Noted Date Comments Iodinated Contrast Media Itching 08/18/2011 Sitagliptin Phosphate Other (Please comment) 03/07/2013 pancreatitis Niacin High 06/14/2019 Other reaction(s): HOT/BURNING FEELING documented as of this encounter (statuses as of 04/30/2023) Medications Medication Sig Dispensed Refills Start Date [...] g 11 05/09/20 18 Active Glucose Blood (DevshopTOUCH ULTRA BLUE) STRPIndications:Ty pe 2 diabetes mellitus with hemoglobin A1c goal of less than 7.0% ([facility]) TEST FOUR TIMES DAILY AND UP [...] (Lasix)Indications :Heart failure, systolic, due to CAD ([facility]) Take 40 mg by mouth on [...] A1c goal of less than 7.0% ([facility]) Use with insulin twice daily as [...] 90 Tablet 3 12/06/19 23 Active PEG 6364-LRi-XzQzo-NaC l-NaSulf 236 GM Oral Solution Reconstituted Please take according to Colonoscopy prep instructions. 4000 mL 0 01/22/20 23 Active NovoLOG FlexPen 100 UNIT/ML Subcutaneous Solution Pen-injector INJECT 8-12 UNITS PRIOR TO EACH MEAL -EXTRA IF NEEDED BASED ON BLOOD SUGAR 30 mL 1 02/07/20 23 Active oxyCODONE HCl 5 MG Oral Tablet (Oxy IR) Take 1 Tablet by mouth every 8 hours as needed for Pain, Severe. 20 Tablet 0 04/06/20 23 Active Nystatin 188478 UNIT/GM External Cream Apply topically to affected [...] 1 Tablet before bedtime. 60 Tablet 0 04/25/20 23 Active Citalopram Hydrobromide 20 MG Oral Tablet (CeleXA) Take 1/2 tablet by mouth daily for 4 weeks then take 1 tablet by mouth daily. 30 Tablet 11 04/25/20 23 Active Prasugrel HCl 10 MG Oral Tablet (Effient) TAKE 1 TABLET BY MOUTH EVERY MORNING 90 Tablet 3 04/30/20 23 Active Prasugrel HCl 10 MG Oral Tablet (Effient) Take by mouth 1 Tablet in the morning. 90 Tablet 3 02/09/20 22 023 Discontinued documented as of this encounter (statuses as of 04/30/2023) Active Problems Problem Noted Date Moderate aortic valve stenosis 1 VINCE (obstructive sleep apnea) 08/20/2021 Chronic kidney disease, stage 3b 021 Overview: Per CKD protocol Coronary artery disease invo lving naknek coronary artery of [place] heart without angina pectoris 02/13/2019 Chronic systolic heart failure 9 Type 2 diabetes mellitus with hemoglobin A1c goal of less than 8.0% 02/02/2019 HTN, goal below 130/80 12/15/2015 Overview: Per HTN Protocol #27. Old CA (myocardial infarction) 5 Dyslipidemia 11/15/2012 Peripheral vascular disease 07/30/2009 S/P angioplasty with stent 08/09/2007 Bicuspid aortic valve Generalized osteoarthritis Fibromyalgia documented as of this encounter (statuses as of 04/30/2023) Resolved Problems Problem Noted Date Resolved Date [...] [facility] DETECT Study: Project # [id number], Aerial Photographer: Jona Mckeon, PhD. SUMMARY: Goal: Establish test [...] contact study staff at ; after hours Aerial Photographer via the [facility] ladies underwear operator . Please contact study team before resolving/deleting from patients problem list. Study phone number: [phone]. Diagnosis changed due to Research Module. Go to Snapshot for study details. Encounter for examination fo r normal comparison and control in clinical research program 02/05/2019 06/10/2022 Overview: DO NOT DELETE - [facility] Study: Project # [id number], Aerial Photographer: Vipin Carvalho, MS, MPH. SUMMARY: Goal: Establish [...] contact study staff at ; after hours Aerial Photographer via the [facility] hospital ladies underwear operator . - Please contact study team before resolving/deleting from patients problem list. Study phone number: [phone]. Diagnosis changed due to Research Module. Go to [employer] for study details. Type 2 diabetes mellitus [...] 08/01/2008 Overview: Study Titile: Event Registry Project #[id number] PI: Rachna Manley MD Please call [phone] with study related questions [employer] Other*[id number] 200611/16/2016 Overview: Study Title: Genomic Markers for Patients with Cardiovascular Disease Project # [id number] Aerial Photographer: Rachna Manley MD [phone] Type 2 diabetes mellitus wit h hemoglobin A1c goal of less than 7.0% 11/15/2005 08/07/2009 Overview: Per Diabetes Taxonomy. ICD-10 update of inactive term Spondylolisthesis 05/11/2004 12/30/2021 HTN, goal below 140/90 12/08/2000 0 Overview: Per HTN Taxonomy. S/P total knee replacement, left 04/05/2023 Erosive osteoarthritis of both hands 04/05/2023 documented as of this encounter (statuses as of 04/30/2023) Immunizations Name Administration Dates Next Due COVID-19 mRNA, LNP-s, No Pre serve, 2-Dose Series ([email or web address]) 10/06/2021,01/05/2021,12/09/2020 COVID-19, LNP-s, No Preserve , Angus-sucrose, Ages 12+ (Pfizer) 03/10/2022 Covid-19, Mrna, Lnp-s, Pf, B ivalent, 30 Mcg, IM, 12 yrs and above ([email or web address]) 07/13/2022 Pneumococcal Conjugate Vacc, 13 Valent (Prevnar) [...] encounter Miscellaneous Notes * Telephone Encounter - Sara Gonzalez [facility] - 04/30/2023 10:27 PM EDT Signed Prescriptions: Disp Refills Prasugrel HCl 10 MG Oral Tablet (Effient) 90 Tab*3 Sig: TAKE 1 TABLET BY MOUTH EVERY MORNINGAuthorizing Provider: SUMIT VILLA User: SARA GONZALEZ documented in this encounter Plan of Treatment Upcoming Encounters Date Type Specialty Care Team Description 05/02/2023 Cardiac Studies Cardiac Studies 06/07/2023 Hospital Encounter Endoscopy Adryan Don MD [address] [facility] [place] [address] 06/07/2023 Surgery Endoscopy Adryan Don MD [address] [place] [address] COLONOSCOPY FLEXIBLE PROXIMAL DIAGNOSTIC 06/17/2023 Office Visit Pharmacy [facility] [place] [address] [facility] [place] [address] 06/29/2023 Therapy Psychology Beni Mares, PhD [address] [facility] [place] [address] 07/28/2023 Office Visit Family Medicine Sumit Villa DO [address] [facility] [place] [address] 09/23/2023 Nurse Only Ancillary [facility] [place] [address] [facility] [place] [address] 10/24/2023 Office Visit Neurology Izzy Hughes MD [address] [facility] [place] [address] 11/18/2023 Office Visit Cardiology Chema Hayden MD [address] [place] [address] 02/23/2024 Office Visit Rheumatology Beni Fernandez MD [address] [place] [address], [place] [address] Scheduled Procedures Name Priority Associated Diagnoses Date/Ti [...] Additional history exists CKD HGB USE SMARTSET 45982 09/09/202309/09, 09/09/2022, 06/04/2022, Additional history exists Depression Screening, Annual for Pts 12 and Over 09/22/2023 09/22/2022 GFR 10/21/2023 04/20/2023, 05/11, 11/17/2021, Additional history exists HbA1c 10/21/2023 04/20/2023, 05/11, 12/07/2021, Additional history exists Mammogram 04/08/2024 04/08/2023, 03/11, 01/29/2021, Additional history exists Albumin/Creatinine Ratio 04/20/2024 023, 03/25/2022, 10/30/2020, Additional history exists CKD PHOS USE SMARTSET 98748 04/20/202404/09, 11/17/2021, 03/26/2020, Additional history exists DXA Scan 11/09/2028 11/09/2021, 12/27/2016 DTaP,Tdap,and Td Vaccines (3 - Td or Tdap) 09/13/2029 09/13/2019, 07/30/2009, 01/09/1996, Additional history exists Pneumococcal Vaccine: 65+ Years Completed 05/09/2018, 11/25/2016, 07/18/2006 Zoster Vaccines Completed 06/25/2020, 03/10, 07/07/2015 COVID-19 Vaccine Completed 07/13/2022, 10/2021, 10/06/2021, Additional history exists LUNG CANCER SCREENING - USE SMARTSET 32160 Completed 02/15/2023, 04/06/2022, 05/09/2020, Additional history exists [...] and were consensually agreed upon. Care Teams Circuit Judge Relationship Specialty Start Date End Date Sumit Villa DO [address] [place] [address] PCP - General Family Medicine 02/16/23 documented as of this encounter
--- NOTE | 2023-10-27 07:09 | Emergency Department Note ---
Impression & Plan Hypoxia ADMIT ED Provider Note HPI: History obtained from patient. The patient is a 73-year-old female with history of type 2 diabetes, chronic kidney disease, coronary artery disease, who presents emergency department with a chief complaint of nausea and vomiting as well as chills that developed overnight. Patient states that she has not had any abdominal pain, denies any headache. Patient denies any chest pain or shortness of breath. On arrival here to the ED the patient is hemodynamically stable. She states she feels very "tired" because she not sleep well overnight. Patient is otherwise alert and oriented x 3 on arrival and is able to give me a lucid history. On arrival here to the ED blood pressure is 162/65, patient is afebrile on arrival, she is saturating well on room air. Patient is slightly tachypneic on arrival, oxygen saturations are noted to be borderline at 91% on my initial assessment. ROS: - Per HPI Differential Diagnosis: Viral gastroenteritis, small bowel obstruction, acute cholecystitis, acute colitis, diverticulitis flare, pneumonia, viral infection, amongst other potential pathologies. *Outpatient medications and allergy history reviewed. PE: General: Alert, listless appearing, otherwise no acute distress HEENT: Normocephalic, trachea midline Eyes: Extraocular eye movement is intact, no scleral erythema Pulmonary: Coarse breath sounds at the right base, no wheezing Cardio: Regular rate and rhythm GI: Abdomen is soft to palpation : No suprapubic tenderness MSK: No evidence of trauma or malformation of the extremities, no edema Skin: No evidence of rash Neuro: Alert, no focal deficits Psychiatric: Cooperative INDEPENDENT INTERPRETATIONS: rn unit manager: (As interpreted by myself): - An order was placed for continuous cardiac monitoring - Patient was noted to be in sinus rhythm with a rate of 72 EKG: (As interpreted by myself): Rate: 82 Rhythm: Normal sinus rhythm Intervals: Within normal limits ST changes: No ST elevation Time: 0658 Chest x-ray: (As interpreted by myself): - Right sided infiltrate Interventions provided in ED: -IV Benadryl, IV Solu-Medrol, IV Unasyn Medical Decision Making: IV was established and lab work obtained, patient was placed on train planner. Lab work shows a leukocytosis of 11.05, hemoglobin is normal, platelet count is normal, blood cultures were drawn in the ED. CMP shows a mild elevation in the patient's creatinine to 1.46, baseline is normal, troponin is negative x 1, lipase is normal. Viral panel testing was obtained and is negative. Patient's chest x-ray per my interpretation shows evidence of right-sided pneumonia. Patient was treated with IV Unasyn as this is concerning for possible aspiration event in the setting of nausea and vomiting overnight. CT imaging of the abdomen pelvis without IV contrast was obtained (secondary to patient's renal function) and this does not show any evidence of bowel obstruction or acute surgical pathology. On my reassessment the patient is saturating well on 2 L nasal cannula oxygen which needed to be placed as the patient did have some desaturations to 88% on room air while here in the ED. Given the patient's hypoxia and finding of pneumonia I do feel she should be admitted for further management. Case was discussed with the [facility] hospitalist service, Urmila Phillips PA-C, and the patient was placed for admission in stable condition to the service of Dr. Quiroz. Consultants/Discussions held with other healthcare providers: -Hospitalist service, Urmila Phillips PA-C Disposition discussion held by myself with: -Patient * CRITICAL CARE TIME: ( 39 ) minutes -Stabilization of hypoxia with oxygen saturations at 88% on room air requiring supplemental oxygen for correction, time spent at the bedside, interpretation of diagnostic studies, discussion with other healthcare providers and arrangement of admission Diagnosis: 1. Hypoxia, acute 2. Aspiration pneumonia, acute 3. Nausea and vomiting, acute 4. Leukocytosis, acute 5. Acute kidney injury Disposition: Admission Flako Hedrick DO Emergency Medicine Past Med/Surg History Medical History (Updated 10/27/23 @ 10:52 by Flako Hedrick DO) VINCE (obstructive sleep apnea) DM type 2 (diabetes mellitus, type 2) Osteoarthritis CKD (chronic kidney disease), stage III Chronic systolic CHF (congestive heart failure) DEREJE III (vulvar intraepithelial neoplasia III) CAD (coronary artery disease) Aggressive atherosclerotic coronary disease s/p multivessel coronary intervention 2006 receiving drug-eluting stents to the mid and distal right coronary artery as well as proximal left circumflex. Late acute stent thrombosis August 2011 in the setting of Aspirin and Plavix withdrawal, treated with drug-eluting Xience stent to the proximal circumflex marginal and right coronary arteries. Repeat stent thrombosis April 2015, treated with drug-eluting stent to the proximal and mid right coronary artery Acute kidney injury superimposed on CKD Leukocytosis Confusion Weakness Pneumonia Hypoxia Polyarthritis of multiple sites PVD (peripheral vascular disease) Hx of sciatica History of difficult intubation Hx glidescope intubation: 08/24/16: Left TKA: Glidescope #3, ETT 7.0 + PNB at [facility] Carotid artery stenosis Aortic stenosis Moderate aortic stenosis present (MG 18.6, VERONIQUE 0.88) per 05/29/19 DSE; possible bicuspid AV per 12/2018* Myocardial Infarction X3- 2006/2010/2014 Fibromyalgia GERD (gastroesophageal reflux disease) controlled Hiatal hernia Chronic kidney disease Chronic deep vein thrombosis (DVT) Per records dating back to 2016; patient denies Anemia Osteoarthritis of left knee Low back pain b/l LE radiculopathy Diabetes IDDM CAD (coronary artery disease) (07/19/14) Total of cardiac stents x 5 (most recent 2014) Surgical History History of lumbar fusion History of cardiac cath X3 (2006, 2010, 2014)- TOTAL 5 CARDIAC STENTS History of appendectomy History of total knee arthroplasty RIGHT Family History Father Heart disease Social History Smoking Status: Former smoker Tobacco Type: Cigarettes Second Hand Exposure: Yes; Do You Dip or Chew Tobacco: No; Hx Alcohol Use: No Hx Substance Use: No Preferred Language: Moldovan Communication Ability: Effective Visual Impairment: No Limitations Hearing Ability: Normal Office Engineer Required: No Beliefs That Will Affect Care: None marital status: Current Living Situation: Spouse Feels Safe at Home: Yes Assistive Devices: None Allergies Allergies Allergy/AdvReac Type Severity Reaction Status Date / Time niacin Allergy Severe HOT/BURNING Verified 08/25/21 12:45 FEELING Iodinated Contrast Media Allergy Intermediate ITCHING Verified 08/25/21 12:45 WITH IVP DYE sitagliptin AdvReac Severe PANCREATITI Verified 08/25/21 12:45 S Home Meds Home Medications Medication Instructions Recorded Confirmed amlodipine 5 mg tablet 5 mg PO QAM 08/22/18 10/27/23 famotidine 20 mg tablet 20 mg PO HS 08/22/18 10/27/23 metoprolol succinate 100 mg 100 mg PO QPM 08/22/18 10/27/23 tablet,extended release 24 hr nitroglycerin 0.4 mg sublingual 0.4 mg sublingual UD PRN Chest Pain 08/22/18 10/27/23 tablet omeprazole 40 mg capsule,delayed 40 mg PO DAILYBB 08/22/18 10/27/23 release prasugrel 10 mg tablet 10 mg PO QAM 08/22/18 10/27/23 duloxetine 60 mg capsule,delayed 60 mg PO QAM 11/01/18 10/27/23 release (Cymbalta) insulin NPH isoph U-100 human 100 35 unit subcut BIDM 04/05/19 10/27/23 unit/mL subcutaneous suspension (Novolin N NPH U-100 Insulin isophane) insulin aspart U-100 100 unit/mL 1 sliding scale dose subcut 05/30/19 10/27/23 subcutaneous solution (Novolog USEASDIRECTD PRN HIGH BLOOD SUGAR U-100 Insulin aspart) gabapentin 300 mg capsule 300 mg PO QAM 11/22/19 10/27/23 (Neurontin) aspirin 81 mg tablet,delayed 81 mg PO QAM 09/27/20 10/27/23 release tramadol 100 mg tablet,extended 100 mg PO BID 09/27/20 10/27/23 release 24 hr tramadol 50 mg tablet 50 mg PO Q6 PRN Pain 09/27/20 10/27/23 rosuvastatin 40 mg tablet 40 mg PO PM 04/16/21 10/27/23 gabapentin 300 mg capsule 600 mg PO QPM 05/01/21 10/27/23 albuterol sulfate 90 mcg/actuation 2 puff inhalation Q4 PRN 08/25/21 10/27/23 aerosol inhaler Bronchospasm diclofenac sodium 1 % topical gel 2 g topical QID PRN Pain 08/25/21 10/27/23 isosorbide mononitrate 30 mg 30 mg PO DAILY 08/25/21 10/27/23 tablet,extended release 24 hr lisinopril 10 mg tablet 10 mg PO HS 03/20/22 10/27/23 metformin 500 mg tablet,extended 1,000 mg PO BID 03/20/22 10/27/23 release 24 hr furosemide 20 mg tablet 20 mg PO UD 10/27/23 10/27/23 Previous Rx's Medication Instructions Recorded oxycodone 5 mg tablet 5 mg PO Q4H PRN pain #12 tabs 04/07/21 prednisone 5 mg tablet 5 mg PO DAILY #7 tabs 05/02/21 L.acidop,casei,lactis,rham-B.lact,adrien 2 cap PO DAILY #10 caps 03/22/22 625 mg (10 billion cell) capsule (Advanced Probiotic) guaifenesin 600 mg tablet, 600 mg PO Q12 #10 tabs 03/22/22 extended release 12 hr (Mucinex) Results & Data (ED) Vital Signs Vital Signs - 24 hr 10/27/23 06:59 10/27/23 07:26 10/27/23 07:30 Temperature 36.9 C 37.9 C H Temperature Source Oral Oral Pulse Rate 80 76 Pulse Rate from SpO2 Sensor 75 Pulse Rhythm Regular Pulse Strength Normal Respiratory Rate 23 25 H Respiratory Effort / Characteristics Non-Labored Respiratory Depth Normal Respiratory Pattern Regular Blood Pressure 162/65 H 137/74 Blood Pressure Mean 97 95 Blood Pressure Position Sitting Pulse Oximetry 93 91 Oxygen Delivery Method Room Air Room Air Oxygen Flow Rate Sepsis Recent Fever Within 48 Hours No Sepsis New/Unexplained Change in Mental Status No Sepsis Action Taken by Nursing No Action Required Oxygen Flow Rate - Titration Pulse Oximetry Post Tiitration 10/27/23 07:42 10/27/23 08:06 10/27/23 08:30 Temperature Temperature Source Pulse Rate 71 70 Pulse Rate from SpO2 Sensor 72 70 Pulse Rhythm Pulse Strength Respiratory Rate 24 21 Respiratory Effort / Characteristics Respiratory Depth Respiratory Pattern Blood Pressure 124/79 130/68 Blood Pressure Mean 94 88 Blood Pressure Position Pulse Oximetry 91 97 93 Oxygen Delivery Method Room Air Oxygen Flow Rate Sepsis Recent Fever Within 48 Hours Sepsis New/Unexplained Change in Mental Status Sepsis Action Taken by Nursing Oxygen Flow Rate - Titration Pulse Oximetry Post Tiitration 10/27/23 08:33 10/27/23 08:55 10/27/23 08:55 Temperature 37.4 C Temperature Source Oral Pulse Rate 69 Pulse Rate from SpO2 Sensor Pulse Rhythm Pulse Strength Respiratory Rate Respiratory Effort / Characteristics Respiratory Depth Respiratory Pattern Blood Pressure Blood Pressure Mean Blood Pressure Position Pulse Oximetry 88 L Oxygen Delivery Method Room Air Oxygen Flow Rate Sepsis Recent Fever Within 48 Hours Sepsis New/Unexplained Change in Mental Status Sepsis Action Taken by Nursing Oxygen Flow Rate - Titration 2 Pulse Oximetry Post Tiitration 94 10/27/23 09:00 10/27/23 09:30 10/27/23 10:00 Temperature Temperature Source Pulse Rate 68 65 67 Pulse Rate from SpO2 Sensor 68 65 67 Pulse Rhythm Pulse Strength Respiratory Rate 20 19 21 Respiratory Effort / Characteristics Respiratory Depth Respiratory Pattern Blood Pressure 123/69 123/63 121/60 Blood Pressure Mean 87 83 80 Blood Pressure Position Pulse Oximetry 96 96 96 Oxygen Delivery Method Nasal Cannula Nasal Cannula Nasal Cannula Oxygen Flow Rate 2 2 2 Sepsis Recent Fever Within 48 Hours Sepsis New/Unexplained Change in Mental Status Sepsis Action Taken by Nursing Oxygen Flow Rate - Titration Pulse Oximetry Post Tiitration Laboratory Data 10/27/23 07:05 10/27/23 07:05 Lab Results 10/27/23 Range/Units 07:05 WBC 11.05 H (4.8-10.8) K/ul RBC 5.40 (4.20-5.40) M/uL Hgb 13.5 (12.0-16.0) g/dl Hct 45.0 (37.0-47.0) % MCV 83.3 (80.0-100.0) fL MCH 25.0 (25.0-34.0) pg MCHC 30.0 L (32.0-36.0) g/dL RDW Std Deviation 51.0 H (36.4-46.3) fL RDW Coeff of Jovana 16.9 H (11.5-14.5) % Plt Count 339 (130-400) K/uL MPV 9.3 L (9.4-12.4) fL Immature Gran % (Auto) 0.5 % Neut % (Auto) 83.6 % Lymph % (Auto) 8.3 % Beauregard % (Auto) 5.9 % Eos % (Auto) 1.2 % Baso % (Auto) 0.5 % Neut # (Auto) 9.24 H (1.40-6.50) K/uL Lymph # (Auto) 0.92 L (1.20-3.40) K/uL Beauregard # (Auto) 0.65 H (0.11-0.59) K/uL Eos # (Auto) 0.13 (0.00-0.50) K/uL Baso # (Auto) 0.05 (0.00-0.20) K/uL Immature Gran # (Auto) 0.06 (0.01-0.20) K/uL PT 11.2 (9.0-12.0) Seconds INR 1.0 (0.9-1.1) Sodium 141 (136-145) mmol/L Potassium 4.0 (3.5-5.1) mmol/L Chloride 106 (98-107) mmol/L Carbon Dioxide 26 (21-32) mmol/L Anion Gap 9 (3-11) BUN 31 H (6-23) mg/dl Creatinine 1.46 H (0.6-1.2) mg/dl Est Cr Clr Drug Dosing 37.0 ml/min Est GFR ( Amer) 41.2 ml/min Est GFR (Non-Af Amer) 35.6 ml/min BUN/Creatinine Ratio 21.2 H (10-20) Glucose 153 H (70-99(Fasting)) mg/dl Calcium 8.9 (8.6-10.3) mg/dl Total Bilirubin 0.6 (0.2-1.0) mg/dl AST 12 L (13-39) U/L ALT 11 (7-52) U/L Alkaline Phosphatase 44 (34-104) U/L Troponin I High Sens 8.5 (0-14) pg/ml Total Protein 7.7 (6.0-8.3) gm/dl Albumin 4.1 (3.4-5.0) gm/dl Globulin 3.6 (2.5-4.0) gm/dl Albumin/Globulin Ratio 1.1 (0.9-2) Lipase 25 (11-82) U/L Adenovirus (PCR) Not Detected (NotDetected) B. pertussis DNA (PCR) Not Detected (NotDetected) B.parapertussis DNA PCR Not Detected (NotDetected) C. pneumoniae DNA (PCR) Not Detected (NotDetected) Coronavirus OC43 (PCR) Not Detected (NotDetected) Coronavirus HKU1 (PCR) Not Detected (NotDetected) Coronavirus 229E (PCR) Not Detected (NotDetected) SARS-CoV-2 (PCR) Not Detected (NotDetected) Coronavirus NL63 (PCR) Not Detected (NotDetected) Human Metapneumovir PCR Not Detected (NotDetected) Influenza Type A (PCR) Not Detected (NotDetected) Influenza Type B (PCR) Not Detected (NotDetected) M. pneumoniae (PCR) Not Detected (NotDetected) Parainfluenza 1 (PCR) Not Detected (NotDetected) Parainfluenza 2 (PCR) Not Detected (NotDetected) Parainfluenza 3 (PCR) Not Detected (NotDetected) Parainfluenza 4 (PCR) Not Detected (NotDetected) RSV (PCR) Not Detected (NotDetected) Entero/Rhino (PCR) Not Detected (NotDetected) Administered Medications Discontinued Medications Diphenhydramine HCl (Diphenhydramine 50 Mg/Ml Vial) 50 mg IV ONE ONE Stop: 10/27/23 07:08 Last Admin: 10/27/23 07:23 Dose: 50 mg Documented By: CT Sodium Chloride (Nss) 500 mls @ 999 mls/hr IV .Q31M STA Stop: 10/27/23 07:35 Last Infusion: 10/27/23 07:54 Dose: Infused Documented By: Admin: 10/27/23 07:23 Dose: 999 mls/hr Documented By: CT Ampicillin Sodium/Sulbactam Sodium 3,000 mg/ Sodium Chloride 100 mls @ 200 mls/hr IV NOW STA Stop: 10/27/23 08:29 Last Infusion: 10/27/23 09:00 Dose: Infused Documented By: Admin: 10/27/23 08:29 Dose: 200 mls/hr Documented By: CT Methylprednisolone (Methylprednisolone 40 Mg/Ml Vial) 40 mg IV NOW ONE Stop: 10/27/23 07:08 Last Admin: 10/27/23 07:23 Dose: 40 mg Documented By: CT Imaging Data Radiologist's Impression: Chest X-Ray 10/27/23 07:06 SINGLE VIEW CHEST CLINICAL HISTORY: Atypical chest pain. FINDINGS: An AP, portable, upright chest radiograph is compared to study dated 12/27/2022. The heart is enlarged noting atherosclerotic calcification of the thoracic aorta. The pulmonary vasculature is noncongested. There is airspace consolidation in the right mid to lower lung. Question trace right pleural effusion. The left lung appears clear noting bibasilar atelectasis. No pneumothorax is seen. The skeletal structures are osteopenic. The bony thorax is grossly intact. IMPRESSION: 1. Airspace consolidation in the right mid to lower lung is typical for pneumonia/aspiration pneumonitis. Clinical correlation will be required and radiographic follow-up to resolution is recommended. 2. Cardiomegaly without radiographic evidence of congestive failure. ACT 112: Negative or not required by law. Electronically signed by: Tomás Askew M.D. 10/27/2023 7:50 AM Abdomen/Pelvis CT 10/27/23 07:50 CT SCAN OF THE ABDOMEN AND PELVIS WITHOUT IV CONTRAST CLINICAL HISTORY: Nausea and vomiting. COMPARISON STUDY: Abdominal CT dated 03/20/2022. TECHNIQUE: CT scan of the abdomen and pelvis is performed from the lung bases to the proximal femora. Images are reviewed in the axial, sagittal, and coronal planes. IV contrast was not administered for this examination. Note that the examination was performed in suboptimal fashion without oral and IV contrast. There is also motion artifact, as well as streak artifact from the arms which could not be elevated above the abdomen. A dose lowering technique was utilized adhering to the principles of ALARA. CT DOSE: 1448.1 mGy.cm FINDINGS: Lung bases: The heart is enlarged and without pericardial effusion. The coronary arteries are densely calcified. Patchy airspace consolidation is seen at the right lung base. The left lung base is clear noting dependent atelectasis. No pleural effusion is identified. There is a moderate to large hiatal hernia. Liver: The unenhanced liver is normal in size, contour, and attenuation. There is no intrahepatic biliary ductal dilatation. Gallbladder: Unremarkable. Spleen: Normal in size and attenuation. Pancreas: The unenhanced pancreas is grossly unremarkable. Adrenal glands: Unremarkable. Kidneys: The unenhanced kidneys demonstrate mild cortical atrophy and are without hydronephrosis. There are no renal calculi identified. There is no evidence of contour deforming renal mass lesion. Abdominal vasculature: The abdominal aorta is normal in course and caliber noting advanced atherosclerotic calcification. Bowel: There is mild colonic diverticulosis without CT evidence of acute diverticulitis. No bowel obstruction is seen. Mild fecal retention is noted throughout the colon. The appendix is then identified and postsurgical change in the right lower quadrant suggests previous appendectomy. Peritoneum: There is no intraperitoneal free air or abdominal ascites. There is a large fat-containing umbilical hernia. Lymphadenopathy: None. Pelvic viscera: The bladder is distended but otherwise normal in appearance. The uterus and adnexa are normal as visualized. There is a fat containing right groin hernia. Skeletal structures: The skeletal structures are osteopenic. Postsurgical and spondylotic change is noted in the lumbar spine. No lytic or blastic lesions are seen. IMPRESSION: 1. Suboptimal examination without oral and IV contrast. There is also streak and motion artifact. 2. No acute infectious or inflammatory findings are identified in the abdomen or pelvis. 3. Airspace consolidation at the right lung base is typical for pneumonia/aspiration pneumonitis. Clinical correlation will be required and radiographic follow-up to resolution is recommended. 4. Moderate to large hiatal hernia. 5. Cardiomegaly with advanced coronary artery atherosclerosis. 6. Additional findings as above. ACT 112: Negative or not required by law. Electronically signed by: Tomás Askew M.D. 10/27/2023 8:21 AM Discharge Plan Visit Data Chief Complaint: Vomiting Stated Complaint: NAUSEA, VOMITING, ALTERED ED Provider: Flako Hedrick Discharge Problem: Hypoxia Patient Disposition: Admitted As Inpatient Discharge Instructions Interventions: ED Discharge Assessment Last Done: 10/27/23 10:17
[2023-10-27 07:25] LABS: Basophils # (auto) 0.05 K/uL (0.00-0.20); Basophils % (auto) 0.5 %; Eosinophils # (auto) 0.13 K/uL (0.00-0.50); Eosinophils % (auto) 1.2 %; Hemoglobin 13.5 g/dl (12.0-16.0); Immature Granulocytes # (auto) 0.06 K/uL (0.01-0.20); Immature Granulocytes % (auto) 0.5 %; Lymphocytes # (auto) 0.92 K/uL (1.20-3.40); Lymphocytes % (auto) 8.3 %; Mean Corpuscular Volume 83.3 fL (80.0-100.0); Mean Platelet Volume 9.3 fL (9.4-12.4); Monocytes # (auto) 0.65 K/uL (0.11-0.59); Monocytes % (auto) 5.9 %; Neutrophils # (auto) 9.24 K/uL (1.40-6.50); Neutrophils % (auto) 83.6 %; Platelet Count 339 K/uL (130-400); RDW Coefficient of Variation 16.9 % (11.5-14.5); White Blood Count 11.05 K/ul (4.8-10.8)
[2023-10-27 07:40] LABS: Albumin Globulin Ratio 1.1 (0.9-2); Albumin Level 4.1 gm/dl (3.4-5.0); BUN Creatinine Ratio 21.2 (10-20); Bilirubin,Total 0.6 mg/dl (0.2-1.0); Calcium 8.9 mg/dl (8.6-10.3); Est GFR (African American) 41.2 ml/min; Est GFR (Non-African American) 35.6 ml/min; Globulin 3.6 gm/dl (2.5-4.0); Total Protein 7.7 gm/dl (6.0-8.3)
[2023-10-27 07:46] LABS: Troponin I High Sensitivity 8.5 pg/ml (0-14)
--- NOTE | 2023-10-27 07:52 | XRay Report ---
SINGLE VIEW CHEST CLINICAL HISTORY: Atypical chest pain. FINDINGS: An AP, portable, upright chest radiograph is compared to study dated 12/27/2022. The heart i s enlarged noting atherosclerotic calcification of the thoracic aorta. The pulmonary vasculature is n oncongested. There is airspace consolidation in the right mid to lower lung. Question trace right ple ural effusion. The left lung appears clear noting bibasilar atelectasis. No pneumothorax is seen. The skeletal structures are osteopenic. The bony thorax is grossly intact. IMPRESSION: 1. Airspace consolidation in the right mid to lower lung is typical for pneumonia/aspiration pneumoni tis. Clinical correlation will be required and radiographic follow-up to resolution is recommended. 2. Cardiomegaly without radiographic evidence of congestive failure. ACT 112: Negative or not required by law. Electronically signed by: Tomás Askew M.D. 10/27/2023 7:50 AM
[2023-10-27 07:53] LABS: Prothrombin Time 11.2 Seconds (9.0-12.0)
[2023-10-27] MEDS ORDERED: AMPICILLIN/SULBACTAM SOD 3,000 MG in SODIUM CHLOR 0.9% MINI-B 100 ML IV STA (08:00)
--- NOTE | 2023-10-27 08:24 | CT Scan Report ---
CT SCAN OF THE ABDOMEN AND PELVIS WITHOUT IV CONTRAST CLINICAL HISTORY: Nausea and vomiting. COMPARISON STUDY: Abdominal CT dated 03/20/2022. TECHNIQUE: CT scan of the abdomen and pelvis is performed from the lung bases to the proximal femora. Images are reviewed in the axial, sagittal, and coronal planes. IV contrast was not administered for this examination. Note that the examination was performed in suboptimal fashion without oral and IV contrast. There is also motion artifact, as well as streak artifact from the arms which could not be elevated above the abdomen. A dose lowering technique was utilized adhering to the principles of ANJALI Hobbs. CT DOSE: 1448.1 mGy.cm FINDINGS: Lung bases: The heart is enlarged and without pericardial effusion. The coronary arteries are densely calcified. Patchy airspace consolidation is seen at the right lung base. The left lung base is clear noting dependent atelectasis. No pleural effusion is identified. There is a moderate to large hiatal hernia. Liver: The unenhanced liver is normal in size, contour, and attenuation. There is no intrahepatic nikolay iary ductal dilatation. Gallbladder: Unremarkable. Spleen: Normal in size and attenuation. Pancreas: The unenhanced pancreas is grossly unremarkable. Adrenal glands: Unremarkable. Kidneys: The unenhanced kidneys demonstrate mild cortical atrophy and are without hydronephrosis. The re are no renal calculi identified. There is no evidence of contour deforming renal mass lesion. Abdominal vasculature: The abdominal aorta is normal in course and caliber noting advanced atheroscle rotic calcification. Bowel: There is mild colonic diverticulosis without CT evidence of acute diverticulitis. No bowel obs truction is seen. Mild fecal retention is noted throughout the colon. The appendix is then identifie d and postsurgical change in the right lower quadrant suggests previous appendectomy. Peritoneum: There is no intraperitoneal free air or abdominal ascites. There is a large fat-containin g umbilical hernia. Lymphadenopathy: None. Pelvic viscera: The bladder is distended but otherwise normal in appearance. The uterus and adnexa ar e normal as visualized. There is a fat containing right groin hernia. Skeletal structures: The skeletal structures are osteopenic. Postsurgical and spondylotic change is n oted in the lumbar spine. No lytic or blastic lesions are seen. IMPRESSION: 1. Suboptimal examination without oral and IV contrast. There is also streak and motion artifact. 2. No acute infectious or inflammatory findings are identified in the abdomen or pelvis. 3. Airspace consolidation at the right lung base is typical for pneumonia/aspiration pneumonitis. Cli nical correlation will be required and radiographic follow-up to resolution is recommended. 4. Moderate to large hiatal hernia. 5. Cardiomegaly with advanced coronary artery atherosclerosis. 6. Additional findings as above. ACT 112: Negative or not required by law. Electronically signed by: Tomás Askew M.D. 10/27/2023 8:21 AM
[2023-10-27 08:50] LABS: Adenovirus PCR Not Detected (NotDetected); Bordetella parapertussis PCR Not Detected (NotDetected); Bordetella pertussis PCR Not Detected (NotDetected); Chlamydia pneumoniae PCR Not Detected (NotDetected); Coronavirus 229E PCR Not Detected (NotDetected); Coronavirus CoV-2 (COVID19)PCR Not Detected (NotDetected); Coronavirus HKU1 PCR Not Detected (NotDetected); Coronavirus NL63 PCR Not Detected (NotDetected); Coronavirus OC43PCR Not Detected (NotDetected); Human Metapneumovirus PCR Not Detected (NotDetected); Influenza A PCR Not Detected (NotDetected); Influenza B PCR Not Detected (NotDetected); Mycoplasma pneumoniae PCR Not Detected (NotDetected); Parainfluenza Virus 1 PCR Not Detected (NotDetected); Parainfluenza Virus 2 PCR Not Detected (NotDetected); Parainfluenza Virus 3 PCR Not Detected (NotDetected); Parainfluenza Virus 4 PCR Not Detected (NotDetected); Respiratory Syncytial VirusPCR Not Detected (NotDetected); Rhinovirus/Enterovirus PCR Not Detected (NotDetected)
--- NOTE | 2023-10-27 09:34 | History & Physical Report ---
Date of Service October 27, 2023 Assessment & Plan (1) Acute hypoxic respiratory failure: (2) Nausea & vomiting: (3) Aspiration pneumonia: Plan: This is a 73yo F with a PMH of DM II, PVD, HFrEF, moderate aortic valve stenosis, HTN, CAD s/p LENA, CKD III, fibromyalgia, VINCE not on cpap and other medical problems listed below who presents with persistent vomiting overnight and was found to have aspiration pneumonia. Admitted to med/surg CXR with airspace consolidation in the right mid to lower lung is typical for pneumonia/aspiration pneumonitis. Cardiomegaly without radiographic evidence of congestive failure. CT abd/pelvis without acute infectious or inflammatory findings are identified in the abdomen or pelvis. Respiratory biofire negative, procal pending, mild leukocytosis, does not meet sepsis criteria Will continue Unasyn for aspiration coverage, incentive spirometer, antitussive PRN Concern multiple narcotic medications taken at night contributing to aspiration - consider reducing home narcotic regimen. Currently prescribed oxycodone 5mg Q4h PRN, tramadol 100mg BID, tramadol 50mg Q6H PRN Hypoxic at 88% upon arrival, now improved to 96% on 2L NC. Is not on home O2 at baseline Continue supplemental O2, wean as tolerated (4) DM type 2 (diabetes mellitus, type 2): Plan: A1c 8.3 in 05/01, repeat in AM Hold home agents Basal/bolus insulin per protocol while in-patient BSG AC HS (5) CKD (chronic kidney disease), stage III: Plan: Cr 1.46 today slightly elevated from baseline (baseline Cr ~1.2-1.4) Appears euvolemic Continue to monitor with daily BMP Avoid nephrotoxic agents as able (6) Aortic stenosis: (7) Chronic systolic CHF (congestive heart failure): Plan: History of HFrEF but most recent echo from 05/01 with normal EF of 55-59%. Small inferior wall motion abnormality, moderate-severe aortic stenosis Appears euvolemic. Continue home lasix 20mg HS with an additional 20mg tab MoWeFr evenings Monitor volume status closely (8) CAD (coronary artery disease): Plan: LENA x 2 in 2006, x2 in 2014. Follows with [facility] cardiology. No chest pain Continue aspirin, prasugrel, statin (9) Osteoarthritis: (10) Fibromyalgia: Plan: On chronic prednisone 5mg daily, also on PRN oxycodone 5mg Q4h PRN, tramadol 100mg BID, tramadol 50mg Q6H PRN Holding oxycodone and scheduled tramadol while patient is lethargic, recommend reducing overall dose at time of discharge Continue PRN tylenol, PRN tramadol (11) VINCE (obstructive sleep apnea): Plan: Not on CPAP device at home DVT Ppx: SQ heparin Code status: FULL PCP: Allen Dispo: admitted to med/surg Patient seen in collaboration with Dr. Quiroz. Please see addendum. History of Present Illness Chief Complaint: Vomiting, SOB Primary Care Provider: Bartolome Villa DO This is a 73yo F with a PMH of DM II, PVD, HFrEF, moderate aortic valve stenosis, HTN, CAD s/p LENA, CKD III, fibromyalgia, VINCE not on cpap and other medical problems listed below who presents with persistent vomiting overnight. [place] okay yesterday but overnight developed nausea with persistent vomiting overnight. Vomit was bilious, no blood. Feels generally weak and fatigued, falling asleep intermittently during interview and then reawakening to verbal stimuli. Denies any cough or SOB. No fever, chills, headache, dizziness, CP, abdominal pain, dysuria, diarrhea or constipation. Lives with and son. Ambulates independently. Allergies Allergy/AdvReac Type Severity Reaction Status Date / Time niacin Allergy Severe HOT/BURNING Verified 08/25/21 12:45 FEELING Iodinated Contrast Media Allergy Intermediate ITCHING Verified 08/25/21 12:45 WITH IVP DYE sitagliptin AdvReac Severe PANCREATITI Verified 08/25/21 12:45 S Home Medications Medication Instructions Recorded Confirmed Type amlodipine 5 mg tablet 5 mg PO QAM 08/22/18 10/27/23 History famotidine 20 mg tablet 20 mg PO HS 08/22/18 10/27/23 History metoprolol succinate 100 mg 100 mg PO QPM 08/22/18 10/27/23 History tablet,extended release 24 hr nitroglycerin 0.4 mg sublingual 0.4 mg sublingual UD PRN Chest Pain 08/22/18 10/27/23 History tablet omeprazole 40 mg capsule,delayed 40 mg PO DAILYBB 08/22/18 10/27/23 History release prasugrel 10 mg tablet 10 mg PO QAM 08/22/18 10/27/23 History duloxetine 60 mg capsule,delayed 60 mg PO QAM 11/01/18 10/27/23 History release (Cymbalta) insulin NPH isoph U-100 human 100 35 unit subcut BIDM 04/05/19 10/27/23 History unit/mL subcutaneous suspension (Novolin N NPH U-100 Insulin isophane) insulin aspart U-100 100 unit/mL 1 sliding scale dose subcut 05/30/19 10/27/23 History subcutaneous solution (Novolog USEASDIRECTD PRN HIGH BLOOD SUGAR U-100 Insulin aspart) gabapentin 300 mg capsule 300 mg PO QAM 11/22/19 10/27/23 History (Neurontin) aspirin 81 mg tablet,delayed 81 mg PO QAM 09/27/20 10/27/23 History release tramadol 100 mg tablet,extended 100 mg PO BID 09/27/20 10/27/23 History release 24 hr tramadol 50 mg tablet 50 mg PO Q6 PRN Pain 09/27/20 10/27/23 History oxycodone 5 mg tablet 5 mg PO Q4H PRN pain #12 tabs 04/07/21 10/27/23 Rx rosuvastatin 40 mg tablet 40 mg PO PM 04/16/21 10/27/23 History gabapentin 300 mg capsule 600 mg PO QPM 05/01/21 10/27/23 History prednisone 5 mg tablet 5 mg PO DAILY #7 tabs 05/02/21 10/27/23 Rx albuterol sulfate 90 mcg/actuation 2 puff inhalation Q4 PRN 08/25/21 10/27/23 History aerosol inhaler Bronchospasm diclofenac sodium 1 % topical gel 2 g topical QID PRN Pain 08/25/21 10/27/23 H istory isosorbide mononitrate 30 mg 30 mg PO DAILY 08/25/21 10/27/23 History tablet,extended release 24 hr lisinopril 10 mg tablet 10 mg PO HS 03/20/22 10/27/23 History metformin 500 mg tablet,extended 1,000 mg PO BID 03/20/22 10/27/23 History release 24 hr L.acidop,casei,lactis,rham-B.lact,adrien 2 cap PO DAILY #10 caps 03/22/22 10/27/23 Rx 625 mg (10 billion cell) capsule (Advanced Probiotic) guaifenesin 600 mg tablet, 600 mg PO Q12 #10 tabs 03/22/22 10/27/23 Rx extended release 12 hr (Mucinex) furosemide 20 mg tablet 20 mg PO UD 10/27/23 10/27/23 History Past Med/Surg History Medical History VINCE (obstructive sleep apnea) DM type 2 (diabetes mellitus, type 2) Osteoarthritis CKD (chronic kidney disease), stage III Chronic systolic CHF (congestive heart failure) DEREJE III (vulvar intraepithelial neoplasia III) CAD (coronary artery disease) Aggressive atherosclerotic coronary disease s/p multivessel coronary intervention 2006 receiving drug-eluting stents to the mid and distal right coronary artery as well as proximal left circumflex. Late acute stent thrombosis August 2011 in the setting of Aspirin and Plavix withdrawal, treated with drug-eluting Xience stent to the proximal circumflex marginal and right coronary arteries. Repeat stent thrombosis April 2015, treated with drug-eluting stent to the proximal and mid right coronary artery Acute kidney injury superimposed on CKD Leukocytosis Confusion Weakness Pneumonia Hypoxia Polyarthritis of multiple sites PVD (peripheral vascular disease) Hx of sciatica History of difficult intubation Hx glidescope intubation: 08/24/16: Left TKA: Glidescope #3, ETT 7.0 + PNB at [facility] Carotid artery stenosis Aortic stenosis Moderate aortic stenosis present (MG 18.6, VERONIQUE 0.88) per 05/29/19 DSE; possible bicuspid AV per 12/2018* Myocardial Infarction X3- /2014 Fibromyalgia GERD (gastroesophageal reflux disease) controlled Hiatal hernia Chronic kidney disease Chronic deep vein thrombosis (DVT) Per records dating back to 2015; patient denies Anemia Osteoarthritis of left knee Low back pain b/l LE radiculopathy Diabetes IDDM CAD (coronary artery disease) (07/19/14) Total of cardiac stents x 5 (most recent 2014) Surgical History History of lumbar fusion History of cardiac cath X3 (2006, 2010, 2014)- TOTAL 5 CARDIAC STENTS History of appendectomy History of total knee arthroplasty RIGHT Family History Father Heart disease Social History Smoking Status: Former smoker Tobacco Type: Cigarettes Second Hand Exposure: Yes; Do You Dip or Chew Tobacco: No; Hx Alcohol Use: No Hx Substance Use: No Preferred Language: Tajik Communication Ability: Effective Visual Impairment: No Limitations Hearing Ability: Normal Computer Technologist Required: No Beliefs That Will Affect Care: None marital status: Current Living Situation: Spouse Feels Safe at Home: Yes Assistive Devices: None Review of Systems Review of Systems: At least ten systems reviewed and negative except as noted in the HPI. Physical Exam Physical Exam: Please see Dr. Quiroz's addendum for physical exam. Results & Data Results & Data Vital Signs (Past 12 Hours) Vital Signs Temp Pulse Resp BP Pulse Ox O2 Del Method 10/27/23 08:55 37.4 C 10/27/23 08:55 88 L Room Air 10/27/23 08:33 69 10/27/23 07:42 91 Room Air 10/27/23 07:30 76 25 H 137/74 91 Room Air 10/27/23 07:26 37.9 C H 10/27/23 06:59 36.9 C 80 23 162/65 H 93 Room Air Laboratory Results Short CBC 10/27/23 Range/Units 07:05 WBC 11.05 H (4.8-10.8) K/ul Hgb 13.5 (12.0-16.0) g/dl Hct 45.0 (37.0-47.0) % Plt Count 339 (130-400) K/uL BMP 10/27/23 07:05 Sodium 141 Potassium 4.0 Chloride 106 Carbon Dioxide 26 BUN 31 H Creatinine 1.46 H Glucose 153 H Calcium 8.9 Liver Function 10/27/23 Range/Units 07:05 Total Bilirubin 0.6 (0.2-1.0) mg/dl AST 12 L (13-39) U/L ALT 11 (7-52) U/L Alkaline Phosphatase 44 (34-104) U/L Albumin 4.1 (3.4-5.0) gm/dl Diagnostic Findings Chest X-Ray 10/27/23 07:06 SINGLE VIEW CHEST CLINICAL HISTORY: Atypical chest pain. FINDINGS: An AP, portable, upright chest radiograph is compared to study dated 12/27/2022. The heart is enlarged noting atherosclerotic calcification of the thoracic aorta. The pulmonary vasculature is noncongested. There is airspace consolidation in the right mid to lower lung. Question trace right pleural effusion. The left lung appears clear noting bibasilar atelectasis. No pneumothorax is seen. The skeletal structures are osteopenic. The bony thorax is grossly intact. IMPRESSION: 1. Airspace consolidation in the right mid to lower lung is typical for pneumonia/aspiration pneumonitis. Clinical correlation will be required and radiographic follow-up to resolution is recommended. 2. Cardiomegaly without radiographic evidence of congestive failure. ACT 112: Negative or not required by law. Electronically signed by: Tomás Askew M.D. 10/27/2023 7:50 AM Abdomen/Pelvis CT 10/27/23 07:50 CT SCAN OF THE ABDOMEN AND PELVIS WITHOUT IV CONTRAST CLINICAL HISTORY: Nausea and vomiting. COMPARISON STUDY: Abdominal CT dated 03/20/2022. TECHNIQUE: CT scan of the abdomen and pelvis is performed from the lung bases to the proximal femora. Images are reviewed in the axial, sagittal, and coronal planes. IV contrast was not administered for this examination. Note that the examination was performed in suboptimal fashion without oral and IV contrast. There is also motion artifact, as well as streak artifact from the arms which could not be elevated above the abdomen. A dose lowering technique was utilized adhering to the principles of ALARA. CT DOSE: 1448.1 mGy.cm FINDINGS: Lung bases: The heart is enlarged and without pericardial effusion. The coronary arteries are densely calcified. Patchy airspace consolidation is seen at the right lung base. The left lung base is clear noting dependent atelectasis. No pleural effusion is identified. There is a moderate to large hiatal hernia. Liver: The unenhanced liver is normal in size, contour, and attenuation. There is no intrahepatic biliary ductal dilatation. Gallbladder: Unremarkable. Spleen: Normal in size and attenuation. Pancreas: The unenhanced pancreas is grossly unremarkable. Adrenal glands: Unremarkable. Kidneys: The unenhanced kidneys demonstrate mild cortical atrophy and are without hydronephrosis. There are no renal calculi identified. There is no evidence of contour deforming renal mass lesion. Abdominal vasculature: The abdominal aorta is normal in course and caliber noting advanced atherosclerotic calcification. Bowel: There is mild colonic diverticulosis without CT evidence of acute diverticulitis. No bowel obstruction is seen. Mild fecal retention is noted throughout the colon. The appendix is then identified and postsurgical change in the right lower quadrant suggests previous appendectomy. Peritoneum: There is no intraperitoneal free air or abdominal ascites. There is a large fat-containing umbilical hernia. Lymphadenopathy: None. Pelvic viscera: The bladder is distended but otherwise normal in appearance. The uterus and adnexa are normal as visualized. There is a fat containing right groin hernia. Skeletal structures: The skeletal structures are osteopenic. Postsurgical and spondylotic change is noted in the lumbar spine. No lytic or blastic lesions are seen. IMPRESSION: 1. Suboptimal examination without oral and IV contrast. There is also streak and motion artifact. 2. No acute infectious or inflammatory findings are identified in the abdomen or pelvis. 3. Airspace consolidation at the right lung base is typical for pneumonia/aspiration pneumonitis. Clinical correlation will be required and radiographic follow-up to resolution is recommended. 4. Moderate to large hiatal hernia. 5. Cardiomegaly with advanced coronary artery atherosclerosis. 6. Additional findings as above. ACT 112: Negative or not required by law. Electronically signed by: Tomás Askew M.D. 10/27/2023 8:21 AM Supervising Physician Co-Signing Physician Notes History and physical exam performed by me 73 year old woman with DM type II, dyslipidemia, CAD, bicuspid aortic valve with moderate aortic valve stenosis, chronic systolic CHF, CKD stage III, osteoarthritis, fibromyalgia and other problems who presents with nausea and vomiting. Reported she felt weak last night but had no other complaints when she went to bed. Woke up in the middle of the night and had an episode of vomiting (yellowish, nonbloody) She presented to ER. Currently drowsy but arousable. Reports only feeling weak. Denied cough, chest pain, nausea, abd pain, diarrhea Was noted to be tachypneic and mild hypoxic in ER General: Drowsy but arousable Eyes: PERRL, conjunctivae normal, not pale, anicteric sclerae, EOM intact bilaterally ENMT: External ear and nose normal, oropharynx normal Respiratory: Mild tachypnea, on nasal cannula at 2l/min, clear to auscultation Cardiovascular: RRR S1 S2, systolic ejection murmur Gastrointestinal (Abdomen): Abdomen is not distended, soft, non-tender to palpation, no guarding, no palpable hepatosplenomegaly, normal bowel sounds Musculoskeletal: No pedal edema Neurologic: Drowsy but arousable, oriented x 3, No focal weakness, se nsation grossly intact Psychiatric: Euthymic affect Labs notable for Cr of 1.48 (Baseline 1.0-1.4), WBC 11 XR chest noted Right mid to lower lung consolidation Abd CT also noted Right lower lung consolidation Acute resp failure with hypoxia Aspiration pneumonia Continue Unasyn Wean oxygen as tolerated Hold home oxycodone and scheduled tramadol Do tramadol prn. Patient's opioid dose may have contributed to these Currently drowsy but arousable Aspiration precautions Monitor Continue other home meds I spent a total of 40 minutes coordinating, documenting and providing care for this patient excluding time spent in performance of separately billed services (2) Nausea & vomiting Vomiting type: unspecified Qualified Code(s): R11.2 - Nausea with vomiting, unspecified
[2023-10-27] MEDS ORDERED: ACETAMINOPHEN 325 MG TAB PO PRN (10:24)
[2023-10-27] MEDS ORDERED: ALBUTEROL HFA 8 GM INHALER INH PRN (10:24)
[2023-10-27] MEDS ORDERED: POLYETHYLENE (MIRALAX) 17 GM PACK PO PRN (10:24)
[2023-10-27] MEDS ORDERED: ONDANSETRON INJ 2 MG/ML 2 ML VIAL IV PRN (10:24)
[2023-10-27] MEDS ORDERED: guaiFENesin SUGAR FREE 100 MG/5 ML UDC PO PRN (10:25)
[2023-10-27] MEDS ORDERED: FUROSEMIDE 20 MG TAB PO SCH (10:30)
[2023-10-27] MEDS ORDERED: GLUCOSE 40% GEL 15 GM TUBE PO PRN (11:25)
[2023-10-27] MEDS ORDERED: DEXTROSE 50% 50 ML SYRINGE IV PRN (11:25)
[2023-10-27] MEDS ORDERED: GLUCAGON FOR INJ 1 MG VIAL SQ PRN (11:25)
[2023-10-27] MEDS ORDERED: CARBOHYDRATES FOR HYPOGLYCEMIA PO PRN (11:25)
[2023-10-27] MEDS ORDERED: GLUCOSE 10 TAB/TUBE PO PRN (11:25)
[2023-10-27] MEDS: AMPICILLIN/SULBACTAM SOD 3,000 MG in SODIUM CHLOR 0.9% MINI-B 100 ML IV SCH ×2 (13:11→21:35)
[2023-10-27] MEDS: INSULIN ASPART PER UNIT CHARGE SC SCH ×3 (13:45→21:33)
--- OUTSIDE RECORDS SUMMARY | 2023-10-27 14:39 | External Medical Summary | Summary of Care ---
Author Name Unknown Organization [facility] [address] [place] [address] Phone [phone] Care Team Providers Care Reproduction Artist Name Role Phone Bartolome Villa DO Primary Care Provider Encounter Details Date Type Department Care Team (Late st Contact Info) Description 10/27/2023 Orders Only PATIENT PORTAL DO NOT DELETE THIS DEPT USED BY [place] [id number] Allergies Active Allergy Reactions Criticality Noted Date Comments Iodinated Contrast Media Itching 08/18/2011 Sitagliptin Phosphate Other (Please comment) 03/07/2013 pancreatitis Niacin High 06/14/2019 Other reaction(s): HOT/BURNING FEELING documented as of this encounter (statuses as of 10/27/2023) Medications Medication Sig Dispensed Refills Start Date [...] to toes 100 g 11 05/09/2018 Active Additional Information Patient not taking.Reported on 10/26/2023 Glucose Blood (BioKierTOUCH ULTRA BLUE) STRPIndications:Typ e 2 diabetes mellitus [...] 40 mg Oral QPM-1999, Reported on 06/02/2023 NovoLOG FlexPen 100 UNIT/ML Subcutaneous Solution Pen-injector INJECT 8-12 UNITS PRIOR TO EACH MEAL -EXTRA IF NEEDED BASED ON BLOOD SUGAR 30 mL 1 02/06/2023 Active Nystatin 799421 UNIT/GM External Cream Apply topically to affected [...] mouth daily. 30 Tablet 11 04/25/2023 Active Additional Information Patient taking differently: 20 [...] BEFORE SUPPER. 30 mL 1 09/22/2023 Active traMADol HCl ER 100 MG Oral Tablet Extended Release 24 Hour (Ultram ER)Indications:[facility] osteoarthritis of both hands Take 1 Tablet by mouth in the morning and 1 Tablet before bedtime. 60 Tablet 0 09/30/2023 Active oxyCODONE HCl 5 MG Oral Tablet (Oxy IR) Take 1 Tablet by mouth every 8 hours as needed for Pain, Severe. 20 Tablet 0 10/25/2023 Active Lisinopril 10 MG Oral Tablet (Prinivil)Indicatio ns:HTN, goal below 140/90 Take 1 Tablet by mouth every evening. 90 Tablet 3 10/26/2023 Active documented as of this encounter (statuses as of 10/27/2023) Active Problems Problem Noted Date Diagnosed Date Moderate aortic valve stenosis 09/02/2021 VINCE (obstructive sleep apnea) 08/20/2021 Chronic kidney disease, stage 3b 03/24/2021 Overview: Per CKD protocol Coronary artery disease invo lving [place] coronary artery of [place] heart without angina pectoris 02/13/2019 Chronic systolic heart failure 02/13/2019 Type 2 diabetes mellitus wit h hemoglobin A1c goal of less than 8.0% 02/02/2019 HTN, goal below 130/80 12/15/2015 Overview: Per HTN Protocol #27. Old ND (myocardial infarction) 04/21/2015 Dyslipidemia 11/15/2012 Peripheral vascular disease 07/30/2009 S/P angioplasty with stent 08/09/2007 Bicuspid aortic valve Generalized osteoarthritis Fibromyalgia documented as of this encounter (statuses as of 10/27/2023) Resolved Problems Problem Noted Date Diagnosed Date [...] [facility] [place] DETECT Study: Project # [id number], Help Desk Specialist: Jona Mckeon, PhD. SUMMARY: Goal: Establish [...] contact study staff at ; after hours Help Desk Specialist via the [facility] hospital lcac operator . Please contact study team before resolving/deleting from patients problem list. Study phone number: [phone]. Diagnosis changed due to Research Module. Go to Snapshot for study details. Encounter for examination fo r normal comparison and control in clinical research program 02/05/2019 06/10/2022 Overview: DO NOT DELETE - [employer] ESTES Study: Project # [id number], Help Desk Specialist: Vipin Carvalho, MS, MPH. SUMMARY: Goal: [...] contact study staff at ; after hours Help Desk Specialist via the [facility] hospital lcac operator . - Please contact study team before resolving/deleting from patients problem list. Study phone number: [phone]. Diagnosis changed due to Research Module. Go [...] 12/30/2021 Hiatal hernia 06/21/2018 12/30/2021 History of ND (myocardial infarction) 05/09/2018 12/30/2021 Vulvar lesion 05/09/2018 [...] 08/01/2008 Overview: Study Titile: Event Registry Project #[id number] PI: Rachna Manley MD Please call [phone] with study related questions [employer] Other*[id number] 06/29/2007 11/16/2016 Overview: Study Title: Genomic Markers for Patients with Cardiovascular Disease Project # [id number] Help Desk Specialist: Rachna Manley MD [phone] Type 2 diabetes mellitus wit h hemoglobin A1c goal of less than 7.0% 11/15/2005 08/07/2009 Overview: Per Diabetes Taxonomy. ICD-10 update of inactive term Spondylolisthesis 05/11/2004 12/30/2021 HTN, goal below 140/90 12/08/200011/06 Overview: Per HTN Taxonomy. S/P total knee replacement, left 04/05/2023 Erosive osteoarthritis of both hands 04/05/2023 documented as of this encounter (statuses as of 10/27/2023) Immunizations Name Administration Dates Next Due COVID-19 mRNA, LNP-s, No Pre serve, 2-Dose Series ([employer]) 10/06/2021,01/05/2021,12/09/2020 COVID-19, LNP-s, No Preserve , Angus-sucrose, Ages 12+ (Pfizer) 03/10/2022 Covid-19, Mrna, Lnp-s, Pf, B ivalent, 30 Mcg, IM, 12 yrs and above ([employer]) 07/13/2022 Pneumococcal Conjugate Vacc, 13 Valent (Prevnar) [...] Description 11/02/2023 10:00 AM EST Therapy Psychology, [facility] [address] [place] [address] Beni Mares, PhD [address] [facility] [address] [place] [address] 11/18/2023 11:30 AM EST Office Visit Cardiology, [facility] [address] [address] Chema Hayden MD [address] [address] 12/12/2023 1:00 PM EST Office Visit Family Practice [facility] [address] [address] Amrita Vergara CRNP [address] [address] 02/23/2024 10:00 AM EDT Office Visit Rheumatology [facility] [address] [facility] [place] [address] Beni Fernandez MD [facility] [place] [address] 03/15/2024 11:00 AM EDT [facility], [facility] [address] [facility] [place] [address] [facility] [address] [place] [address] 05/03/2024 5:40 PM EDT Office Visit Family Practice [facility] [address] [facility] [place] [address] Bartolome Villa DO [address] [place] [address] Scheduled Procedures Name Priority Associated Diagnoses Date/Ti me COLONOSCOPY FLEXIBLE PROXIMA L DIAGNOSTIC Recall History of colonic polyps Health Maintenance Due Date Last Done Comments Hepatitis B (1 of 3 - Risk 3-dose series) 2011 COVID-19 Vaccine ( season) 2023 07/13/2022, 03/10/2022, 10/06/2021, Additional history exists CKD HGB USE SMARTSET 66854 09/09/202309/09, 09/09/2022, 06/04/2022, Additional history exists Depression Screening 09/22/2023 09/22/2022 GFR 10/21/2023 04/20/2023, 05/11, 11/17/2021, Additional history exists HbA1c 10/21/2023 04/20/2023, 05/11, 12/07/2021, Additional history exists Mammogram 04/08/2024 04/08/2023, 03/12, 04/06/2022, Additional history exists Albumin/Creatinine Ratio 04/20/2024 023, 03/25/2022, 10/30/2020, Additional history exists CKD PHOS USE SMARTSET 77924 04/20/202404/09, 11/17/2021, 03/26/2020, Additional history exists Diabetic [...] 07/07/2015 LUNG CANCER SCREENING - USE SMARTSET [id number] Completed 02/15/2023, 04/06/2022, 05/09/2020, Additional history exists [...] and were consensually agreed upon. Care Teams Reproduction Artist Relationship Specialty Start Date End Date Bartolome Villa DO [address] [address] PCP - General Family Medicine 02/16/23 documented as of this encounter
[2023-10-27] MEDS: ALUMINUM/MAGNESIUM SUSP 30 ML UDC PO PRN ×2 (14:48→21:32)
[2023-10-27] MEDS: HEPARIN SOD 5,000 UNIT/0.5 ML VIAL SQ SCH ×2 (15:45→21:22)
[2023-10-27] MEDS: FAMOTIDINE 20 MG TAB PO SCH (21:16)
[2023-10-27] MEDS: FUROSEMIDE 20 MG TAB PO SCH (21:18)
[2023-10-27] MEDS: lisinopril 10 MG TAB PO SCH (21:18)
[2023-10-27] MEDS: ROSUVASTATIN CALCIUM 20 MG TAB PO SCH (21:18)
[2023-10-27] MEDS: METOPROLOL SUCC 50MG EXT REL TAB PO SCH (21:18)
[2023-10-27] MEDS: guaiFENesin 600 MG TABCR PO SCH (21:19)
[2023-10-27] MEDS: GABAPENTIN 300 MG CAP PO SCH (21:20)
[2023-10-27] MEDS: traMADol HCL 50 MG TABLET PO PRN (21:32)
[2023-10-27] MEDS: LANTUS PER UNIT CHARGE SQ SCH (21:34)
[2023-10-28] MEDS: AMPICILLIN/SULBACTAM SOD 3,000 MG in SODIUM CHLOR 0.9% MINI-B 100 ML IV SCH ×4 (02:05→20:51)
[2023-10-28] MEDS: PANTOprazole 40 MG TAB PO SCH (06:04)
[2023-10-28] MEDS: HEPARIN SOD 5,000 UNIT/0.5 ML VIAL SQ SCH ×3 (06:04→21:00)
[2023-10-28 08:01] LABS: Hemoglobin 11.4 g/dl (12.0-16.0); Mean Corpuscular Hemoglobin 25.7 pg (25.0-34.0); Mean Corpuscular Hgb Conc 31.7 g/dL (32.0-36.0); Mean Corpuscular Volume 81.3 fL (80.0-100.0); Mean Platelet Volume 9.8 fL (9.4-12.4); Platelet Count 308 K/uL (130-400); RDW Coefficient of Variation 16.9 % (11.5-14.5); RDW Standard Deviation 49.8 fL (36.4-46.3); Red Blood Count 4.43 M/uL (4.20-5.40); White Blood Count 16.07 K/ul (4.8-10.8)
[2023-10-28 08:20] LABS: BUN Creatinine Ratio 26.5 (10-20); Calcium 8.5 mg/dl (8.6-10.3); Creatinine Clr Calc Pharmacy 42.1 ml/min; Est GFR (African American) 46.6 ml/min; Est GFR (Non-African American) 40.2 ml/min; Potassium 4.1 mmol/L (3.5-5.1)
[2023-10-28 08:23] LABS: Estimated Average Glucose 177 mg/dl; Hemoglobin A1C 7.8 % (4.5-5.6)
[2023-10-28] MEDS: traMADol HCL 50 MG TABLET PO PRN ×2 (08:35→20:50)
[2023-10-28] MEDS: LANTUS PER UNIT CHARGE SQ SCH ×2 (08:35→20:50)
[2023-10-28] MEDS: INSULIN ASPART PER UNIT CHARGE SC SCH ×4 (08:35→20:50)
[2023-10-28] MEDS: ISOSORBIDE MONO EXTENDED REL 30 MG TABCR PO SCH (08:38)
[2023-10-28] MEDS: amLODIPine BESYLATE 5 MG TAB PO SCH (08:38)
[2023-10-28] MEDS: predniSONE 5 MG TAB PO SCH (08:38)
[2023-10-28] MEDS: guaiFENesin 600 MG TABCR PO SCH ×2 (08:38→20:39)
[2023-10-28] MEDS: GABAPENTIN 300 MG CAP PO SCH ×2 (08:38→20:39)
[2023-10-28] MEDS: DULoxetine HCL 60 MG CAP PO SCH (08:38)
[2023-10-28] MEDS: ASPIRIN 81 MG ECTAB PO SCH (08:38)
[2023-10-28] MEDS: ADVANCED PROBIOTIC 1250 MG CAPSULE PO SCH (08:38)
[2023-10-28] MEDS: PRASugrel TAB 10 MG TAB PO SCH (08:38)
--- NOTE | 2023-10-28 13:05 | Hospitalist Progress Note ---
Date of Service October 28, 2023 Assessment & Plan (1) Acute hypoxic respiratory failure: (2) Nausea & vomiting: (3) Aspiration pneumonia: Plan: 73yo F with a PMH of DM II, PVD, HFrEF, moderate aortic valve stenosis, HTN, CAD s/p LENA, CKD III, fibromyalgia, VINCE not on cpap and other medical problems listed below who presents with persistent vomiting overnight and was found to have aspiration pneumonia. CXR with airspace consolidation in the right mid to lower lung is typical for pneumonia/aspiration pneumonitis. Cardiomegaly without radiographic evidence of congestive failure. CT abd/pelvis without acute infectious or inflammatory findings are identified in the abdomen or pelvis. Respiratory biofire negative, procal negative on admission, mild leukocytosis on admission -> but now WBC increased to 16K Will continue Unasyn for aspiration coverage, incentive spirometer, antitussive PRN Concern multiple narcotic medications taken at night contributing to aspiration - consider reducing home narcotic regimen. Currently prescribed oxycodone 5mg Q 4h PRN, tramadol 100mg BID, tramadol 50mg Q6H PRN Hypoxic at 88% upon arrival, then improved to 96% on 2L NC on admission. Is not on home O2 at baseline Continue supplemental O2, wean as tolerated Currently on RA, saturating 94%, awake and alert, clinically improved (4) DM type 2 (diabetes mellitus, type 2): Plan: A1c 8.3 in 05/01, current Hgb A1c 7.8% Hold home agents Basal/bolus insulin per protocol while in-patient BSG AC HS (5) CKD (chronic kidney disease), stage III: Plan: Cr 1.46 today slightly elevated from baseline (baseline Cr ~1.2-1.4) Appears euvolemic Current Cr 1.3 Continue to monitor with daily BMP Avoid nephrotoxic agents as able (6) Aortic stenosis: (7) Chronic systolic CHF (congestive heart failure): Plan: History of HFrEF but most recent echo from 05/01 with normal EF of 55-59%. Small inferior wall motion abnormality, moderate-severe aortic stenosis Appears euvolemic. Continue home lasix 20mg HS with an additional 20mg tab MoWeFr evenings Monitor volume status closely (8) CAD (coronary artery disease): Plan: LENA x 2 in 2006, x2 in 2014. Follows with [facility]. No chest pain Continue aspirin, prasugrel, statin (9) Osteoarthritis: (10) Fibromyalgia: Plan: On chronic prednisone 5mg daily, also on PRN oxycodone 5mg Q4h PRN, tramadol 100mg BID, tramadol 50mg Q6H PRN Holding oxycodone and scheduled tramadol while patient lethargic (on admission), recommend reducing overall dose at time of discharge Continue PRN tylenol, PRN tramadol (11) VINCE (obstructive sleep apnea): Plan: Not on CPAP device at home DVT Ppx: SQ heparin Code status: FULL PCP: Dr. Villa Dispo: med/surg Admission and Anticipated Discharge Date Admission Date: October 27, 2023 Subjective Pt seen in follow up of aspiration pna Currently laying in bed, in no acute distress Says she already feels much better Currently on room air, breathing easy She does have a cough and productive sputum Reports history of hiatal hernia, and patient remembers that she ate late and regurgitated at night and was coughing at night WBC increased at 16 K today Review of Systems Review of Systems: All systems reviewed & are unremarkable except as noted in Subjective Physical Exam Physical Exam: General: WD/WN F in NAD, on RA Eyes: PERRL, EOM intact bilaterally ENMT: External ear and nose normal, oropharynx normal Respiratory: clear to auscultation, min rhonchi at R base, on RA Cardiovascular: RRR S1 S2, systolic ejection murmur Gastrointestinal (Abdomen): soft, non-tender, non-distended, normal bowel sounds Musculoskeletal: No pedal edema, moves extremities Neurologic: awake, alert, oriented x 3, answers appropriately, no facial asymmetry, speech fluent, moves extremities Psychiatric: Euthymic affect Results & Data Results & Data Vital Signs (Past 12 Hours) Vital Signs Temp Pulse Resp BP Pulse Ox O2 Del Method 10/28/23 09:43 Room Air 10/28/23 07:22 36.7 C 52 L 16 148/68 H 96 Room Air Laboratory Results 10/28/23 10/28/23 10/28/23 Range/Units 12:02 08:03 07:47 WBC 16.07 H (4.8-10.8) K/ul RBC 4.43 (4.20-5.40) M/uL Hgb 11.4 L (12.0-16.0) g/dl Hct 36.0 L (37.0-47.0) % MCV 81.3 (80.0-100.0) fL MCH 25.7 (25.0-34.0) pg MCHC 31.7 L (32.0-36.0) g/dL RDW Std Deviation 49.8 H (36.4-46.3) fL RDW Coeff of Jovana 16.9 H (11.5-14.5) % Plt Count 308 (130-400) K/uL MPV 9.8 (9.4-12.4) fL Sodium 137 (136-145) mmol/L Potassium 4.1 (3.5-5.1) mmol/L Chloride 105 (98-107) mmol/L Carbon Dioxide 25 (21-32) mmol/L Anion Gap 7 (3-11) BUN 35 H (6-23) mg/dl Creatinine 1.32 H (0.6-1.2) mg/dl Est Cr Clr Drug Dosing 42.1 ml/min Est GFR ( Amer) 46.6 ml/min Est GFR (Non-Af Amer) 40.2 ml/min BUN/Creatinine Ratio 26.5 H (10-20) Glucose 152 H (70-99(Fasting)) mg/dl POC Glucose 140 H 137 H (70-99) mg/dl Estimat Average Glucose 177 mg/dl Hemoglobin A1c 7.8 H (4.5-5.6) % Calcium 8.5 L (8.6-10.3) mg/dl 10/27/23 10/27/23 Range/Units 20:21 16:38 WBC (4.8-10.8) K/ul RBC (4.20-5.40) M/uL Hgb (12.0-16.0) g/dl Hct (37.0-47.0) % MCV (80.0-100.0) fL MCH (25.0-34.0) pg MCHC (32.0-36.0) g/dL RDW Std Deviation (36.4-46.3) fL RDW Coeff of Jovana (11.5-14.5) % Plt Count (130-400) K/uL MPV (9.4-12.4) fL Sodium (136-145) mmol/L Potassium (3.5-5.1) mmol/L Chloride (98-107) mmol/L Carbon Dioxide (21-32) mmol/L Anion Gap (3-11) BUN (6-23) mg/dl Creatinine (0.6-1.2) mg/dl Est Cr Clr Drug Dosing ml/min Est GFR ( Amer) ml/min Est GFR (Non-Af Amer) ml/min BUN/Creatinine Ratio (10-20) Glucose (70-99(Fasting)) mg/dl POC Glucose 182 H 237 H (70-99) mg/dl Estimat Average Glucose mg/dl Hemoglobin A1c (4.5-5.6) % Calcium (8.6-10.3) mg/dl Medications Administered Current Inpatient Medications Acetaminophen (Acetaminophen 325 Mg Tab) 650 mg PO Q4H PRN PRN Reason: pain/fever Stop: 11/26/23 10:23 Al Hydrox/Mg Hydrox/Simethicone (Aluminum/Magnesium Susp 30 Ml Udc) 15 ml PO Q6H PRN PRN Reason: Heartburn Stop: 10/28/23 14:43 Last Admin: 10/27/23 21:32 Dose: 15 ml Albuterol (Albuterol Hfa 8 Gm Inhaler) 2 puffs INH Q4 PRN PRN Reason: Bronchospasm Stop: 11/26/23 10:23 Amlodipine Besylate (Amlodipine Besylate 5 Mg Tab) 5 mg PO [facility] Stop: 11/27/23 08:59 Last Admin: 10/28/23 08:38 Dose: 5 mg Aspirin (Aspirin 81 Mg Ectab) [facility] Stop: 11/27/23 08:59 Last Admin: 10/28/23 08:38 Dose: 81 mg Dextrose (Dextrose 50% 50 Ml Syringe) 25 - 50 ml IV UD PRN; Protocol PRN Reason: Hypoglycemia Protocol Stop: 11/26/23 11:24 Duloxetine HCl (Duloxetine Hcl 60 Mg Cap) 60 mg PO [facility] Stop: 11/27/23 08:59 Last Admin: 10/28/23 08:38 Dose: 60 mg Famotidine (Famotidine 20 Mg Tab) 20 mg PO [facility] Stop: 11/26/23 20:59 Last Admin: 10/27/23 21:16 Dose: 20 mg Furosemide (Furosemide 20 Mg Tab) 20 mg PO [facility] Stop: 11/26/23 20:59 Last Admin: 10/27/23 21:18 Dose: 20 mg Furosemide (Furosemide 20 Mg Tab) 20 mg PO MoWeFr@2100 [facility] Stop: 11/27/23 20:59 Gabapentin (Gabapentin 300 Mg Cap) 300 mg PO QAM JUAN C Stop: 11/27/23 08:59 Last Admin: 10/28/23 08:38 Dose: 300 mg Gabapentin (Gabapentin 300 Mg Cap) 600 mg PO QPM JUAN C Stop: 11/26/23 20:59 Last Admin: 10/27/23 21:20 Dose: 600 mg Glucagon (Glucagon For Inj 1 Mg Vial) 1 mg SQ UD PRN; Protocol PRN Reason: Hypoglycemia Protocol Stop: 11/26/23 11:24 Glucose (Glucose 10 Tab/Tube) 4 - 8 tab PO UD PRN; Protocol PRN Reason: Hypoglycemia Treatment Stop: 11/26/23 11:24 Glucose (Glucose 40% Gel 15 Gm Tube) 15 - 30 gm PO UD PRN; Protocol PRN Reason: Hypoglycemia Protocol Stop: 11/26/23 11:24 Guaifenesin (Guaifenesin 600 Mg Tabcr) 600 mg PO Q12 JUAN C Stop: 11/26/23 20:59 Last Admin: 10/28/23 08:38 Dose: 600 mg Guaifenesin (Guaifenesin Sugar Free 100 Mg/5 Ml Udc) 100 mg PO Q6H PRN PRN Reason: Cough Stop: 11/26/23 10:24 Heparin Sodium (Porcine) (Heparin Sod 5,000 Unit/0.5 Ml Vial) 5,000 units SQ Q8 JUAN C Stop: 11/26/23 13:59 Last Admin: 10/28/23 06:04 Dose: 5,000 units Ampicillin Sodium/Sulbactam Sodium 3,000 mg/ Sodium Chloride 100 mls @ 100 mls/hr IV Q6H JUAN C Stop: 11/03/23 13:59 Last Infusion: 10/28/23 09:45 Dose: Infused Insulin Aspart (Insulin Aspart Per Unit Charge) 0 units SC ACHS JUAN C Stop: 11/26/23 11:29 Last Admin: 10/28/23 12:36 Dose: 4 units Insulin Glargine (Lantus Per Unit Charge) 0 - 14 units SQ BID JUAN C Stop: 11/26/23 20:59 Last Admin: 10/28/23 08:35 Dose: 10 units Isosorbide Mononitrate (Isosorbide [place] Extended Rel 30 Mg Tabcr) 30 mg PO DAILY JUAN C Stop: 11/27/23 08:59 Last Admin: 10/28/23 08:38 Dose: 30 mg Lactobacillus Acidophilus (Advanced Probiotic 1250 Mg Capsule) 2 cap PO DAILY JUAN C Stop: 11/27/23 08:59 Last Admin: 10/28/23 08:38 Dose: 2 cap Lisinopril (Lisinopril 10 Mg Tab) 10 mg PO HS JUAN C Stop: 11/26/23 20:59 Last Admin: 10/27/23 21:18 Dose: 10 mg Metoprolol Succinate (Metoprolol Succ 50mg Ext Rel Tab) 100 mg PO QPM JUAN C Stop: 11/26/23 20:59 Last Admin: 10/27/23 21:18 Dose: 100 mg Miscellaneous (Carbohydrates For Hypoglycemia ) 15 - 30 gm PO UD PRN PRN Reason: Hypoglycemia Protocol Stop: 11/26/23 11:24 Ondansetron HCl (Ondansetron Inj 2 Mg/Ml 2 Ml Vial) 4 mg IV Q6H PRN PRN Reason: Nausea Stop: 11/26/23 10:23 Pantoprazole Sodium (Pantoprazole 40 Mg Tab) 40 mg PO DAILYBB JUAN C Stop: 11/27/23 06:29 Last Admin: 10/28/23 06:04 Dose: 40 mg Polyethylene Glycol (Polyethylene (Miralax) 17 Gm Pack) 17 gm PO DAILY PRN PRN Reason: Constipation Stop: 11/26/23 10:23 Prasugrel (Prasugrel Tab 10 Mg Tab) 10 mg PO QAM JUAN C Stop: 11/27/23 08:59 Last Admin: 10/28/23 08:38 Dose: 10 mg Prednisone (Prednisone 5 Mg Tab) 5 mg PO DAILY JUAN C Stop: 11/27/23 08:59 Last Admin: 10/28/23 08:38 Dose: 5 mg Rosuvastatin Calcium (Rosuvastatin Calcium 20 Mg Tab) 40 mg PO PM JUAN C Stop: 11/26/23 20:59 Last Admin: 10/27/23 21:18 Dose: 40 mg Tramadol HCl (Tramadol Hcl 50 Mg Tablet) 50 mg PO Q6 PRN PRN Reason: Pain Stop: 11/26/23 10:23 Last Admin: 10/28/23 08:35 Dose: 50 mg (2) Nausea & vomiting Vomiting type: unspecified Qualified Code(s): R11.2 - Nausea with vomiting, unspecified
[2023-10-28 19:38] LABS: Appearance Urine Clear (Clear); Bacteria Urine Automated Negative (Negative); Bilirubin Urine Negative (Negative); Blood Urine Trace (Negative); Cast Urine Automated 0 /lpf (0-5); Color Urine Yellow; Epithelial Cell Urine Auto >30 /lpf (0-5); Glucose Urine UA Negative (Negative); Ketones Urine Negative (Negative); Leukocyte Esterase Urine Negative (Negative); Nitrite Urine Negative (Negative); Protein Urine 1+ (Negative); RBC Urine Automated 0-4 /hpf (0-4); Specific Gravity Urine 1.024 (1.000-1.030); Urobilinogen Urine Negative (Negative)
[2023-10-28] MEDS: lisinopril 10 MG TAB PO SCH (20:35)
[2023-10-28] MEDS: FUROSEMIDE 20 MG TAB PO SCH (20:35)
[2023-10-28] MEDS: ROSUVASTATIN CALCIUM 20 MG TAB PO SCH (20:36)
[2023-10-28] MEDS: METOPROLOL SUCC 50MG EXT REL TAB PO SCH (20:38)
[2023-10-28] MEDS: FAMOTIDINE 20 MG TAB PO SCH (20:50)
[2023-10-28] MEDS ORDERED: FUROSEMIDE 20 MG TAB PO SCH (21:00)
[2023-10-28] MEDS ORDERED: oxyCODONE HCL IR 5 MG TAB (IMMEDIATE RELEASE) PO PRN (21:46)
[2023-10-29] MEDS: AMPICILLIN/SULBACTAM SOD 3,000 MG in SODIUM CHLOR 0.9% MINI-B 100 ML IV SCH ×3 (02:10→13:32)
[2023-10-29] MEDS: PANTOprazole 40 MG TAB PO SCH (05:36)
[2023-10-29] MEDS: HEPARIN SOD 5,000 UNIT/0.5 ML VIAL SQ SCH ×2 (05:36→13:32)
--- NOTE | 2023-10-29 05:50 | Electrocardiogram Report ---
Test Reason : Blood Pressure : / mmHG Vent. Rate : 082 BPM Atrial Rate : 082 BPM P-R Int : 138 ms QRS Dur : 096 ms QT Int : 374 ms P-R-T Axes : 017 005 025 degrees QTc Int : 436 ms Normal sinus rhythm Minimal voltage criteria for LVH, may be normal variant ( Joaquín product ) Nonspecific ST abnormality Abnormal ECG When compared with ECG of 04-JAN-2023 09:27, Premature ventricular complexes are no longer Present Confirmed by Pastor Mahan ([id number]) on 10/29/2023 5:49:41 AM Referred By: Confirmed By:Pastor Mahan
[2023-10-29 07:16] LABS: Hematocrit (blood only) 37.2 % (37.0-47.0); Hemoglobin 11.7 g/dl (12.0-16.0); Mean Corpuscular Hemoglobin 25.4 pg (25.0-34.0); Mean Corpuscular Hgb Conc 31.5 g/dL (32.0-36.0); Mean Corpuscular Volume 80.7 fL (80.0-100.0); Mean Platelet Volume 9.8 fL (9.4-12.4); Platelet Count 305 K/uL (130-400); RDW Coefficient of Variation 16.6 % (11.5-14.5); RDW Standard Deviation 48.8 fL (36.4-46.3); Red Blood Count 4.61 M/uL (4.20-5.40); White Blood Count 9.17 K/ul (4.8-10.8)
[2023-10-29 07:25] LABS: Anion Gap 9 (3-11); Blood Urea Nitrogen 37 mg/dl (6-23); Calcium 8.9 mg/dl (8.6-10.3); Carbon Dioxide 25 mmol/L (21-32); Chloride 103 mmol/L (98-107); Creatinine Clr Calc Pharmacy 42.1 ml/min; Est GFR (African American) 46.6 ml/min; Est GFR (Non-African American) 40.2 ml/min; Glucose 129 mg/dl (70-99(Fasting)); Magnesium 2.2 mg/dl (1.7-2.4); Phosphorus 4.1 mg/dl (2.5-4.9); Sodium 137 mmol/L (136-145)
[2023-10-29] MEDS: predniSONE 5 MG TAB PO SCH (07:55)
[2023-10-29] MEDS: amLODIPine BESYLATE 5 MG TAB PO SCH (07:55)
[2023-10-29] MEDS: PRASugrel TAB 10 MG TAB PO SCH (07:55)
[2023-10-29] MEDS: ASPIRIN 81 MG ECTAB PO SCH (07:56)
[2023-10-29] MEDS: DULoxetine HCL 60 MG CAP PO SCH (07:56)
[2023-10-29] MEDS: ADVANCED PROBIOTIC 1250 MG CAPSULE PO SCH (07:56)
[2023-10-29] MEDS: guaiFENesin 600 MG TABCR PO SCH (07:56)
[2023-10-29] MEDS: ISOSORBIDE MONO EXTENDED REL 30 MG TABCR PO SCH (07:56)
[2023-10-29] MEDS: GABAPENTIN 300 MG CAP PO SCH (07:56)
[2023-10-29] MEDS: traMADol HCL 50 MG TABLET PO PRN (08:23)
[2023-10-29] MEDS: INSULIN ASPART PER UNIT CHARGE SC SCH ×3 (09:13→17:14)
[2023-10-29] MEDS: LANTUS PER UNIT CHARGE SQ SCH (09:14)
--- NOTE | 2023-10-29 16:38 | Discharge Summary ---
Date of Service October 29, 2023 Admission HPI Per Admitting Provider This is a 73yo F with a PMH of DM II, PVD, HFrEF, moderate aortic valve stenosis, HTN, CAD s/p LENA, CKD III, fibromyalgia, VINCE not on cpap and other medical problems listed below who presents with persistent vomiting overnight. [place] okay yesterday but overnight developed nausea with persistent vomiting overnight. Vomit was bilious, no blood. Feels generally weak and fatigued, falling asleep intermittently during interview and then reawakening to verbal stimuli. Denies any cough or SOB. No fever, chills, headache, dizziness, CP, abdominal pain, dysuria, diarrhea or constipation. Lives with and son. Ambulates independently. Admission Exam Per Admitting Provider General: Drowsy but arousable Eyes: PERRL, conjunctivae normal, not pale, anicteric sclerae, EOM intact bilaterally ENMT: External ear and nose normal, oropharynx normal Respiratory: Mild tachypnea, on nasal cannula at 2l/min, clear to auscultation Cardiovascular: RRR S1 S2, systolic ejection murmur Gastrointestinal (Abdomen): Abdomen is not distended, soft, non-tender to palpation, no guarding, no palpable hepatosplenomegaly, normal bowel sounds Musculoskeletal: No pedal edema Neurologic: Drowsy but arousable, oriented x 3, No focal weakness, sensation grossly intact Psychiatric: Euthymic affect Principal Diagnosis Aspiration pneumonia, hypoxia Discharge Exam General: WD/WN F in NAD, on RA Eyes: PERRL, EOM intact bilaterally ENMT: External ear and nose normal, oropharynx normal Respiratory: clear to auscultation, min rhonchi at R base, on RA Cardiovascular: RRR S1 S2, systolic ejection murmur Gastrointestinal (Abdomen): soft, non-tender, non-distended, normal bowel sounds Musculoskeletal: No pedal edema, moves extremities Neurologic: awake, alert, oriented x 3, answers appropriately, no facial asymmetry, speech fluent, moves extremities Psychiatric: Euthymic affect Discharge Data Allergies Allergy/AdvReac Type Severity Reaction Status Date / Time niacin Allergy Severe HOT/BURNING Verified 08/25/21 12:45 FEELING Iodinated Contrast Media Allergy Intermediate ITCHING Verified 08/25/21 12:45 WITH IVP DYE sitagliptin AdvReac Severe PANCREATITI Verified 11/16/21 12:45 S Consultations 10/27/23 09:31 ED Decision to Admit Stat Ordered Studies 10/27/23 07:50 CT abd pelvis wo con Stat FINDINGS: Lung bases: The heart is enlarged and without pericardial effusion. The coronary arteries are densely calcified. Patchy airspace consolidation is seen at the right lung base. The left lung base is clear noting dependent atelectasis. No pleural effusion is identified. There is a moderate to large hiatal hernia. Liver: The unenhanced liver is normal in size, contour, and attenuation. There is no intrahepatic biliary ductal dilatation. Gallbladder: Unremarkable. Spleen: Normal in size and attenuation. Pancreas: The unenhanced pancreas is grossly unremarkable. Adrenal glands: Unremarkable. Kidneys: The unenhanced kidneys demonstrate mild cortical atrophy and are without hydronephrosis. There are no renal calculi identified. There is no evidence of contour deforming renal mass lesion. Abdominal vasculature: The abdominal aorta is normal in course and caliber noting advanced atherosclerotic calcification. Bowel: There is mild colonic diverticulosis without CT evidence of acute diverticulitis. No bowel obstruction is seen. Mild fecal retention is noted throughout the colon. The appendix is then identified and postsurgical change in the right lower quadrant suggests previous appendectomy. Peritoneum: There is no intraperitoneal free air or abdominal ascites. There is a large fat-containing umbilical hernia. Lymphadenopathy: None. Pelvic viscera: The bladder is distended but otherwise normal in appearance. The uterus and adnexa are normal as visualized. There is a fat containing right groin hernia. Skeletal structures: The skeletal structures are osteopenic. Postsurgical and spondylotic change is noted in the lumbar spine. No lytic or blastic lesions are seen. IMPRESSION: 1. Suboptimal examination without oral and IV contrast. There is also streak and motion artifact. 2. No acute infectious or inflammatory findings are identified in the abdomen or pelvis. 3. Airspace consolidation at the right lung base is typical for pneumonia/aspiration pneumonitis. Clinical correlation will be required and radiographic follow-up to resolution is recommended. 4. Moderate to large hiatal hernia. 5. Cardiomegaly with advanced coronary artery atherosclerosis. 6. Additional findings as above. Hospital Course (1) Acute hypoxic respiratory failure: (2) Nausea & vomiting: (3) Aspiration pneumonia: 73yo F with a PMH of DM II, PVD, HFrEF, moderate aortic valve stenosis, HTN, CAD s/p LENA, CKD III, fibromyalgia, VINCE not on cpap and other medical problems listed below who presents with persistent vomiting overnight and was found to have aspiration pneumonia. CXR with airspace consolidation in the right mid to lower lung is typical for pneumonia/aspiration pneumonitis. Cardiomegaly without radiographic evidence of congestive failure. CT abd/pelvis without acute infectious or inflammatory findings are identified in the abdomen or pelvis. Respiratory biofire negative, procal negative on admission, mild leukocytosis on admission -> but next day WBC increased to 16K -> now normalized Continued Unasyn for aspiration coverage, incentive spirometer, antitussive PRN -> will DC on augmentin Hypoxic at 88% upon arrival, then improved to 96% on 2L NC on admission. Is not on home O2 at baseline Continue supplemental O2, wean as tolerated Currently on RA, saturating 97%, awake and alert, clinically improved (4) DM type 2 (diabetes mellitus, type 2): A1c 8.3 in 05/01, current Hgb A1c 7.8% Hold home agents Basal/bolus insulin per protocol while in-patient BSG AC HS (5) CKD (chronic kidney disease), stage III: Cr 1.46 today slightly elevated from baseline (baseline Cr ~1.2-1.4) Appears euvolemic Current Cr 1.3 Continue to monitor with daily BMP Avoid nephrotoxic agents as able (6) Aortic stenosis: (7) Chronic systolic CHF (congestive heart failure): History of HFrEF but most recent echo from 05/01 with normal EF of 55-59%. Small inferior wall motion abnormality, moderate-severe aortic stenosis Appears euvolemic. Continue home lasix 20mg HS with an additional 20mg tab MoWeFr evenings Monitor volume status closely (8) CAD (coronary artery disease): LENA x 2 in 2006, x2 in 2014. Follows with [facility] cardiology. No chest pain Continue aspirin, prasugrel, statin (9) Osteoarthritis: (10) Fibromyalgia: On chronic prednisone 5mg daily, also on PRN oxycodone 5mg Q4h PRN, tramadol 100mg BID, tramadol 50mg Q6H PRN Holding scheduled tramadol while patient lethargic (on admission) Continue PRN tylenol, PRN tramadol while inpt Pt awake alert, back to baseline (11) VINCE (obstructive sleep apnea): Not on CPAP device at home Total Time Total Time Spent Total Time Spent (In Minutes): 40 Discharge Plan Discharge Items Patient Disposition: Home - Self-Care Reason For Visit: ASPIRATION PNA, HYPOXIA Discharge Diagnosis: Aspiration pneumonia, hypoxia Activity: Per Instructions section Non-emergency contact: Primary Care Provider Call non-emergency contact if: you have any medication questions and your symptoms worsen Follow-up/Referrals: Bartolome Villa DO [Primary Care Provider] - (Date & Time 11/02/2023 9:00 AM Provider Bartolome Villa DO Department [facility] ) Diet: Carb Consistent or DM2 Diet Texture: Easy to Chew Addtl Attending Provider Instructions: Follow up with your primary care provider within 1 week. The appointment was scheduled for you for 11/02/2023. Finish the antibiotic course as prescribed. In addition, take guaifenesin and co ntinue using flutter valve. Make sure you are always sitting upright when eating and do not go to bed right after having a meal. Pending Studies at Discharge: Yes Studies:: final results of blood cultx Stand-Alone Forms: My [facility] [employer], Smoking Cessation Medications and DC Order Prescriptions: New guaifenesin [Mucinex] 600 mg Tablet Extended Release 12hr 600 mg PO Q12 Qty: 14 0RF amoxicillin-pot clavulanate 875-125 mg tablet 1 tab PO BID 7 Days Qty: 14 0RF Continued duloxetine [Cymbalta] 60 mg capsule,delayed release(DR/EC) 60 mg PO QAM metoprolol succinate 100 mg tablet extended release 24 hr 100 mg PO QPM amlodipine 5 mg tablet 5 mg PO QAM omeprazole 40 mg capsule,delayed release(DR/EC) 40 mg PO DAILYBB Rx Instructions: TAKE THIS MEDICATION ONCE DAILY ONE HOUR BEFORE FIRST MEAL OF THE DAY famotidine 20 mg tablet 20 mg PO HS nitroglycerin 0.4 mg tablet, sublingual 0.4 mg Sublingual UD PRN (Reason: Chest Pain) Rx Instructions: PLACE ONE TABLET UNDER THE TONGUE EVERY 5 MINUTES FOR UP TO 3 DOSES OVER 15 MINUTES IF NEEDED FOR CHEST PAIN prasugrel 10 mg tablet 10 mg PO QAM insulin aspart U-100 [Novolog U-100 Insulin aspart] 100 unit/mL Solution 1 sliding scale dose SUBCUT USEASDIRECTD PRN (Reason: HIGH BLOOD SUGAR) Rx Instructions: 8-12 units prior to each meal as directed gabapentin [Neurontin] 300 mg capsule 300 mg PO QAM Novolin N NPH U-100 Insulin 100 unit/mL suspension 35 unit subcut BIDM Rx Instructions: ADMINISTER BEFORE BREAKFAST AND DINNER aspirin 81 mg Tablet,Delayed Release (Dr/Ec) 81 mg PO QAM tramadol 50 mg tablet 50 mg PO Q6 PRN (Reason: Pain) tramadol 100 mg tablet extended release 24 hr 100 mg PO BID lisinopril 10 mg tablet 10 mg PO HS metformin 500 mg tablet extended release 24 hr 1,000 mg PO BID Advanced Probiotic 625 mg (10 billion cell) Capsule 2 cap PO DAILY Qty: 10 0RF guaifenesin [Mucinex] 600 mg Tablet Extended Release 12hr 600 mg PO Q12 Qty: 10 0RF furosemide 20 mg tablet 20 mg PO UD Rx Instructions: 20mg PO HS and then takes an additional 20mg in the evening MoWeFr oxycodone 5 mg tablet 5 mg PO Q4H PRN (Reason: pain) Qty: 12 0RF Rx Instructions: usually takes HS PRN only rosuvastatin 40 mg tablet 40 mg PO PM gabapentin 300 mg Capsule 600 mg PO QPM prednisone 5 mg tablet 5 mg PO DAILY Qty: 7 0RF albuterol sulfate 90 mcg/actuation HFA aerosol inhaler 2 puff INHALATION Q4 PRN (Reason: Bronchospasm) diclofenac sodium 1 % Gel 2 g TOPICAL QID PRN (Reason: Pain) isosorbide mononitrate 30 mg tablet extended release 24 hr 30 mg PO DAILY Discharge Orders: Discharge Order (Routine); Ordered 10/29/23 Ordered By: Peter Alacron/Other Patient Handouts: Managing Type 2 Diabetes Admission Data Admit Date/Time: 10/27/23 10:02 Attending Provider: Peter Raya Admit Provider: Qing Quiroz I. Primary Care Provider: Bartolome Villa Other Providers: Qing Quiroz I.
== END 2023-10-29 18:01 | disposition home or self-care (01) | DRG 177 ==
LOC: ED 06:54 → SUATTDRO 10:02 → EDINP 10:02 → 3W 14:33

== ENCOUNTER 2024-09-06 08:15 | Inpatient (IN) ==
[2024-09-06] MEDS: dexAMETHasone**PF** 10 MG/ML VIAL IV ONE (08:35)
[2024-09-06] MEDS: SODIUM CHLORIDE 0.9% 1,000 ML IV ONE (08:35)
[2024-09-06 08:41] LABS: Basophils # (auto) 0.05 K/uL (0.00-0.20); Basophils % (auto) 0.5 %; Eosinophils # (auto) 0.11 K/uL (0.00-0.50); Hematocrit (blood only) 40.4 % (37.0-47.0); Hemoglobin 12.5 g/dl (12.0-16.0); Immature Granulocytes # (auto) 0.05 K/uL (0.01-0.20); Immature Granulocytes % (auto) 0.5 %; Lymphocytes # (auto) 1.38 K/uL (1.20-3.40); Mean Corpuscular Hemoglobin 25.2 pg (25.0-34.0); Mean Corpuscular Hgb Conc 30.9 g/dL (32.0-36.0); Mean Corpuscular Volume 81.5 fL (80.0-100.0); Mean Platelet Volume 9.3 fL (9.4-12.4); Monocytes # (auto) 0.79 K/uL (0.11-0.59); Monocytes % (auto) 7.4 %; Neutrophils # (auto) 8.24 K/uL (1.40-6.50); Neutrophils % (auto) 77.6 %; Platelet Count 281 K/uL (130-400); RDW Coefficient of Variation 16.5 % (11.5-14.5); RDW Standard Deviation 48.3 fL (36.4-46.3); Red Blood Count 4.96 M/uL (4.20-5.40); White Blood Count 10.62 K/ul (4.8-10.8)
--- NOTE | 2024-09-06 08:50 | Emergency Department Note ---
Impression & Plan Left lower lobe pneumonia, Hypoxia, Severe sepsis ED Provider Note Name: JANIA PERSON Age: 74 Sex: Female Arrives Via: Ambulance Informant: Patient ED Provider: Rolando Becerra MD Chief Complaint: Illness Impression: As per impressions above Medical Decision Makin-year-old female with extensive past medical history arrives for evaluation of worsening weakness fatigue associated with shortness of breath, nausea, vomiting, diarrhea this morning. Patient with quite poor lung exam on arrival and hypoxia on room air. Improved with 2 L nasal cannula. Patient is a bit dehydrated on examination thus given 1 L normal saline. Laboratory workup is relatively reassuring. She has a large left-sided pneumonia. In the setting of large pneumonia, hypoxia patient likely has developing severe sepsis. Blood cultures and lactic acid were obtained. Following these empiric antibiotics begun. Due to patient's kidney disease and history of congestive failure 1 L normal saline was given rather than 30/kg IV fluids. Patient was given 10 mg IV Decadron empirically on arrival due to concern for COVID, fortunately during stay COVID testing ended up being negative.. Patient will need inpatient management. Sepsis resuscitation: Patient was given 1 L normal saline bolus IV rather than 30/kg bolus. This was done as patient has a history of CKD, CHF as well as blood pressure is stable. Sepsis reevaluation: Patient was reevaluated at 10 AM on 09/06/2024. Sepsis reevaluation was completed by me. She does not require further fluids nor pressors at this time. Patient is breathing comfortably. Oxygenation 94% on 2 L nasal cannula. Heart rate 75. Blood pressure 128/64. Good cap refill and mentation normal. Patient without any current complaints. Triage/Nursing Notes reviewed by Me External Chart Review by me: PCP visit from August 30, 2024 discussing patient's multiple comorbidities. These put her at increased risk for infections. Differential:Infection, dehydration, metabolic abnormality, hypo/hyperglycemia, electrolyte disturbance, anemia, hypoxia, cardiac sources, intracerebral event, toxicologic, neurologic, as well as other pathologies. Vital Signs: reviewed and remarkable for hypoxia on RA Interventions: 1 L normal sign bolus IV, Zosyn 4.5 g IV, Decadron 10 mg IV, doxycycline 100 mg IV Labs:ED labs Reviewed by me and remarkable for no significant abnormalities Imagin view chest x-ray as per my interpretation large left lower lobe infiltrate. Mild infiltrate/scarring throughout the right lung. EKG:As per my interpretation. Indication: Weakness. Normal sinus rhythm at 70 bpm with a QTc of 433. There is no ectopy nor ischemia. Compared to EKG of or 2023 no significant change. Cardiac/Tele Monitoring: Cardiac Monitoring: An Order was placed for continuous cardiac monitoring. The monitor shows a rate of 70 with a normal sinus rhythm. Consults:[facility] team will further evaluate and manage. Plan: Disposition:Hospitalization. Condition: Fair History of Present Illness: 74-year-old female arrives for evaluation of illness. Patient has been feeling increasingly weak and fatigued since she woke up this morning. Over the last 2 hours developed nausea vomiting and diarrhea. States she feels short of breath as well. Associated with weakness, fatigue and bodyaches. Denies any specific headache or neck pain beyond her baseline. Not having any sore throat or difficulty swallowing. Has not been able to keep down any fluids today. Denies any abdominal pain back pain chest pain. Has not had any syncope. Denies any leg swelling. Has not measured any fevers. Patient has known sick contact (her son) who had reportedly tested positive for COVID last week. Patient lives with her son. On arrival to ER patient was hypoxic and placed on 2 L nasal cannula. Patient states this is making her feel better. Patient does not believe she aspirated or choked on any of her vomit this morning. Past Medical History:See Below Home Medications:See Below Allergies:See Below Vitals:Blood Pressure: 128/64, Pulse 73, RR 18, T 37.2C, O2 92% on 2L NC Physical Exam: GENERAL: Patient is unwell/tired/dehydrated appearing and in mild distress. Dry mucous membranes RESPIRATORY: Mild dyspnea/tachypnea. Crackles throughout left lung hardin as well as some of the right lower lung CARDIOVASCULAR: Normal rate/rhythm.No murmur appreciated. GASTROINTESTINAL: Abdomen soft, non-tender, no peritonitis. EXTREMITIES: Normal motion all extremities, no cyanosis, no edema. NEUROLOGIC: Alert and oriented. No focal neurologic deficits appreciated SKIN: No rash, no jaundice, no diaphoresis. PSYCH: Appropriate GCS: 15 ED Course: Times/Reassessments: Patient is feeling significantly better after being placed on nasal cannula O2 and initial liter of fluids. Rolando Becerra MD Past Med/Surg History Problem List (Updated 09/06/24 @ 10:51 by Lori Langley PA-C) Hypomagnesemia Severe sepsis (Acute) Hypoxia (Acute) Left lower lobe pneumonia (Acute) Hypoglycemia (Acute) Hyperlipidemia Hypertension Chronic pain syndrome Hypoxia (Acute) VINCE (obstructive sleep apnea) Acute hypoxic respiratory failure Aspiration pneumonia DM type 2 (diabetes mellitus, type 2) Osteoarthritis Fibromyalgia CKD (chronic kidney disease), stage III Chronic systolic CHF (congestive heart failure) Hiatal hernia Vomiting DEREJE III (vulvar intraepithelial neoplasia III) DVT prophylaxis CAD (coronary artery disease) Weakness (Acute) Multifocal pneumonia (Acute) Nausea & vomiting (Acute) Carotid artery stenosis Aortic stenosis Moderate aortic stenosis present (MG 18.6, VERONIQUE 0.88) per 05/29/19 DSE; possible bicuspid AV per 12/2018* Bicuspid aortic valve Hx of sciatica History of spinal fusion Rupture of left proximal biceps tendon H/O total knee replacement History of difficult intubation Hx glidescope intubation: 08/24/16: Left TKA: Glidescope #3, ETT 7.0 + PNB at [facility] History of total knee arthroplasty RIGHT Osteoarthritis of left knee Anemia Chronic deep vein thrombosis (DVT) Per records dating back to 2015; patient denies Medical History Acute kidney injury superimposed on CKD Leukocytosis Confusion Weakness Pneumonia Hypoxia Polyarthritis of multiple sites PVD (peripheral vascular disease) Myocardial Infarction GERD (gastroesophageal reflux disease) Chronic kidney disease Low back pain Diabetes CAD (coronary artery disease) (07/19/14) Surgical History History of lumbar fusion History of cardiac cath History of appendectomy Family History Father Heart disease Myocardial infarction Grandfather (Paternal) Myocardial infarction Denies family history of Ovarian cancer Prostate cancer Breast cancer Colorectal cancer Social History Smoking Status: Former smoker Tobacco Type: Cigarettes Age Started Using Tobacco: 0; Age Quit Using Tobacco: 0; packs per day: 0; Second Hand Exposure: Yes; Do You Dip or Chew Tobacco: No; Hx Alcohol Use: No Hx Substance Use: No Preferred Language: Chadian Communication Ability: Effective Visual Impairment: No Limitations Hearing Ability: Normal [place] Tier Required: No Beliefs That Will Affect Care: None marital status: / Current Living Situation: Family Current Living Situation Comment: son current occupational status: retired Feels Safe at Home: Yes Childhood Exposure to Second-Hand Smoke: Yes Physical Activity Frequency: Daily Seatbelt Use: always Sunscreen Use: No Assistive Devices: Cane Allergies Allergies Allergy/AdvReac Type Severity Reaction Status Date / Time niacin Allergy Severe HOT/BURNING Verified 09/06/24 09:35 FEELING Iodinated Contrast Media Allergy Intermediate ITCHING Verified 09/06/24 09:35 WITH IVP DYE sitagliptin AdvReac Severe PANCREATITI Verified 09/06/24 09:35 S Home Meds Home Medications Medication Instructions Recorded Confirmed amlodipine 5 mg tablet 5 mg PO QAM 08/22/18 09/06/24 famotidine 20 mg tablet 20 mg PO HS 08/22/18 09/06/24 metoprolol succinate 100 mg 100 mg PO QPM 08/22/18 09/06/24 tablet,extended release 24 hr nitroglycerin 0.4 mg sublingual 0.4 mg sublingual UD PRN Chest Pain 08/22/18 09/06/24 tablet omeprazole 40 mg capsule,delayed 40 mg PO DAILYBB 08/22/18 09/06/24 release prasugrel 10 mg tablet 10 mg PO QAM 08/22/18 09/06/24 insulin NPH isoph U-100 human 100 25 unit subcut BIDM 04/05/19 09/06/24 unit/mL subcutaneous suspension (Novolin N NPH U-100 Insulin isophane) aspirin 81 mg tablet,delayed 81 mg PO QAM 09/27/20 09/06/24 release rosuvastatin 40 mg tablet 40 mg PO PM 04/16/21 09/06/24 diclofenac sodium 1 % topical gel 2 g topical QID PRN Pain 08/25/21 09/06/24 isosorbide mononitrate 30 mg 30 mg PO DAILY 08/25/21 09/06/24 tablet,extended release 24 hr lisinopril 10 mg tablet 10 mg PO HS 03/20/22 09/06/24 metformin 500 mg tablet,extended 500 mg PO HS 03/20/22 09/06/24 release 24 hr furosemide 20 mg tablet 20 mg PO UD 10/27/23 09/06/24 gabapentin 300 mg capsule 300 mg PO BID 03/26/24 09/06/24 citalopram 20 mg tablet 20 mg PO QAM 09/06/24 09/06/24 Previous Rx's Medication Instructions Recorded L.acidop,casei,lactis,rham-B.lact,adrien 2 cap PO DAILY #10 caps 03/22/22 625 mg (10 billion cell) capsule (Advanced Probiotic) oxycodone 10 mg tablet 10 mg PO BID PRN pain #60 tabs 08/15/24 empagliflozin 25 mg tablet 25 mg PO DAILY #30 tabs 08/21/24 (Jardiance) miconazole nitrate 2 % topical 1 applic topical DAILY #42.5 grams 08/31/24 cream glucagon 3 mg/actuation nasal 3 mg intranasal ONCE #1 ea 09/05/24 spray (Baqsimi) Results & Data (ED) Vital Signs Vital Signs - 24 hr 09/06/24 08:06 09/06/24 08:06 09/06/24 08:44 Temperature 37.2 C Temperature Source Oral Pulse Rate 78 73 Pulse Rate [Apical] Pulse Rate from SpO2 Sensor Respiratory Rate 18 Respiratory Effort / Characteristics Respiratory Depth Blood Pressure 128/64 Blood Pressure [Left Arm] Blood Pressure Mean 85 Blood Pressure Mean [Left Arm] Pulse Oximetry 88 L 92 Oxygen Delivery Method Room Air Nasal Cannula Oxygen Flow Rate 2 Sepsis Recent Fever Within 48 Hours No Sepsis New/Unexplained Change in Mental Status N/A Sepsis Action Taken by Nursing No Action Required 09/06/24 09:21 09/06/24 10:20 09/06/24 11:00 Temperature Temperature Source Pulse Rate 80 Pulse Rate [Apical] 75 69 Pulse Rate from SpO2 Sensor 73 Respiratory Rate 16 18 22 Respiratory Effort / Characteristics Respiratory Depth Blood Pressure 152/60 H Blood Pressure [Left Arm] 119/73 137/71 Blood Pressure Mean 90 Blood Pressure Mean [Left Arm] 88 93 Pulse Oximetry 96 96 94 Oxygen Delivery Method Nasal Cannula Nasal Cannula Nasal Cannula Oxygen Flow Rate 2 2 2 Sepsis Recent Fever Within 48 Hours Sepsis New/Unexplained Change in Mental Status Sepsis Action Taken by Nursing 09/06/24 11:21 09/06/24 11:45 11/28/24 12:00 Temperature Temperature Source Pulse Rate 68 72 Pulse Rate [Apical] Pulse Rate from SpO2 Sensor 69 72 Respiratory Rate 22 14 19 Respiratory Effort / Characteristics Non-Labored Spontaneous Respiratory Depth Normal Blood Pressure Blood Pressure [Left Arm] Blood Pressure Mean Blood Pressure Mean [Left Arm] Pulse Oximetry 92 94 93 Oxygen Delivery Method Nasal Cannula Oxygen Flow Rate 2 Sepsis Recent Fever Within 48 Hours Sepsis New/Unexplained Change in Mental Status Sepsis Action Taken by Nursing Laboratory Data 09/06/24 08:20 09/06/24 08:20 Lab Results 09/06/24 09/06/24 09/06/24 Range/Units 08:20 09:04 09:20 WBC 10.62 (4.8-10.8) K/ul RBC 4.96 (4.20-5.40) M/uL Hgb 12.5 (12.0-16.0) g/dl Hct 40.4 (37.0-47.0) % MCV 81.5 (80.0-100.0) fL MCH 25.2 (25.0-34.0) pg MCHC 30.9 L (32.0-36.0) g/dL RDW Std Deviation 48.3 H (36.4-46.3) fL RDW Coeff of Jovana 16.5 H (11.5-14.5) % Plt Count 281 (130-400) K/uL MPV 9.3 L (9.4-12.4) fL Immature Gran % (Auto) 0.5 % Neut % (Auto) 77.6 % Lymph % (Auto) 13.0 % [place] % (Auto) 7.4 % Eos % (Auto) 1.0 % Baso % (Auto) 0.5 % Neut # (Auto) 8.24 H (1.40-6.50) K/uL Lymph # (Auto) 1.38 (1.20-3.40) K/uL [place] # (Auto) 0.79 H (0.11-0.59) K/uL Eos # (Auto) 0.11 (0.00-0.50) K/uL Baso # (Auto) 0.05 (0.00-0.20) K/uL Immature Gran # (Auto) 0.05 (0.01-0.20) K/uL APTT < 20 L (21-31) Seconds PTT Ratio 0.7 Sodium 142 (136-145) mmol/L Potassium 4.1 (3.5-5.1) mmol/L Chloride 110 H (98-107) mmol/L Carbon Dioxide 23 (21-32) mmol/L Anion Gap 9 (3-11) BUN 29 H (6-23) mg/dl Creatinine 1.27 H (0.6-1.2) mg/dl Est Cr Clr Drug Dosing 43.1 ml/min eGFR 44.65 BUN/Creatinine Ratio 22.8 H (10-20) Glucose 141 H (70-99(Fasting)) mg/dl Lactate 1.2 (0.4-2.0) mmol/L Calcium 8.6 (8.6-10.3) mg/dl Magnesium 1.8 (1.7-2.4) mg/dl Total Bilirubin 0.7 (0.2-1.0) mg/dl AST 12 L (13-39) U/L ALT 11 (7-52) U/L Alkaline Phosphatase 40 (34-104) U/L Troponin I High Sens 5.6 (0-14) pg/ml Total Protein 6.8 (6.0-8.3) gm/dl Albumin 3.7 (3.4-5.0) gm/dl Globulin 3.1 (2.5-4.0) gm/dl Albumin/Globulin Ratio 1.2 (0.9-2) Procalcitonin 0.10 (0-0.5) ng/ml Urine Color Urine Appearance (Clear) Urine pH (4.5-7.5) Ur Specific [place] (1.000-1.030) Urine Protein (Negative) Urine Glucose (UA) (Negative) Urine Ketones (Negative) Urine Blood (Negative) Urine Nitrite (Negative) Urine Bilirubin (Negative) Urine Urobilinogen (Negative) Ur Leukocyte Esterase (Negative) Urine WBC (Auto) (0-5) /hpf Urine RBC (Auto) (0-2) /hpf U Hyaline Cast (Auto) (0-2) /lpf U Epithel Cells (Auto) (0-2) /hpf Urine Bacteria (Auto) (None Seen) Nasal Screen MRSA (PCR) Negative (Negative) SARS-CoV-2 (PCR) (Negative) Influenza Type A (PCR) (Neg) Influenza Type B (PCR) (Neg) RSV (RT-PCR) (Neg) 09/06/24 09/06/24 Range/Units 09:48 Unknown WBC (4.8-10.8) K/ul RBC (4.20-5.40) M/uL Hgb (12.0-16.0) g/dl Hct (37.0-47.0) % MCV (80.0-100.0) fL MCH (25.0-34.0) pg MCHC (32.0-36.0) g/dL RDW Std Deviation (36.4-46.3) fL RDW Coeff of Jovana (11.5-14.5) % Plt Count (130-400) K/uL MPV (9.4-12.4) fL Immature Gran % (Auto) % Neut % (Auto) % Lymph % (Auto) % [place] % (Auto) % Eos % (Auto) % Baso % (Auto) % Neut # (Auto) (1.40-6.50) K/uL Lymph # (Auto) (1.20-3.40) K/uL [place] # (Auto) (0.11-0.59) K/uL Eos # (Auto) (0.00-0.50) K/uL Baso # (Auto) (0.00-0.20) K/uL Immature Gran # (Auto) (0.01-0.20) K/uL APTT (21-31) Seconds PTT Ratio Sodium (136-145) mmol/L Potassium (3.5-5.1) mmol/L Chloride (98-107) mmol/L Carbon Dioxide (21-32) mmol/L Anion Gap (3-11) BUN (6-23) mg/dl Creatinine (0.6-1.2) mg/dl Est Cr Clr Drug Dosing ml/min eGFR BUN/Creatinine Ratio (10-20) Glucose (70-99(Fasting)) mg/dl Lactate (0.4-2.0) mmol/L Calcium (8.6-10.3) mg/dl Magnesium (1.7-2.4) mg/dl Total Bilirubin (0.2-1.0) mg/dl AST (13-39) U/L ALT (7-52) U/L Alkaline Phosphatase (34-104) U/L Troponin I High Sens (0-14) pg/ml Total Protein (6.0-8.3) gm/dl Albumin (3.4-5.0) gm/dl Globulin (2.5-4.0) gm/dl Albumin/Globulin Ratio (0.9-2) Procalcitonin (0-0.5) ng/ml Urine Color Yellow Urine Appearance Clear (Clear) Urine pH 7.5 (4.5-7.5) Ur Specific [place] 1.025 (1.000-1.030) Urine Protein 1+ H (Negative) Urine Glucose (UA) 3+ H (Negative) Urine Ketones Negative (Negative) Urine Blood Negative (Negative) Urine Nitrite Negative (Negative) Urine Bilirubin Negative (Negative) Urine Urobilinogen Negative (Negative) Ur Leukocyte Esterase Negative (Negative) Urine WBC (Auto) 0-5 (0-5) /hpf Urine RBC (Auto) 0-2 (0-2) /hpf U Hyaline Cast (Auto) 0-2 (0-2) /lpf U Epithel Cells (Auto) 0-2 (0-2) /hpf Urine Bacteria (Auto) None Seen (None Seen) Nasal Screen MRSA (PCR) (Negative) SARS-CoV-2 (PCR) NEGATIVE (Negative) Influenza Type A (PCR) Negative (Neg) Influenza Type B (PCR) Negative (Neg) RSV (RT-PCR) Negative (Neg) Administered Medications Discontinued Medications Dexamethasone Sodium Phosphate (DexamethasonePf 10 Mg/Ml Vial) 10 mg IV NOW ONE Stop: 09/06/24 08:31 Last Admin: 09/06/24 08:35 Dose: 10 mg Documented By: ALYCIA Sodium Chloride (Nss) 1,000 mls @ 999 mls/hr IV .Q1H1M ONE Stop: 09/06/24 09:30 Last Infusion: 09/06/24 09:52 Dose: Infused Documented By: Admin: 09/06/24 08:35 Dose: 999 mls/hr Documented By: ALYCIA Piperacillin Sod/Tazobactam Sod (Zosyn) 4.5 gm in 100 mls @ 200 mls/hr IV NOW ONE; Protocol Stop: 09/06/24 09:32 Last Infusion: 09/06/24 09:52 Dose: Infused Documented By: Admin: 09/06/24 09:17 Dose: 200 mls/hr Documented By: ALYCIA Doxycycline Hyclate 100 mg/ (Dextrose) 100 mls @ 50 mls/hr IV NOW STA Stop: 09/06/24 11:21 Last Infusion: 09/06/24 11:57 Dose: Infused Documented By: Admin: 09/06/24 09:49 Dose: 50 mls/hr Documented By: ALYCIA Imaging Data Radiologist's Impression: Chest X-Ray 09/06/24 08:42 EXAM: Radiograph of the Chest 1 View INDICATION: Cough. TECHNIQUE: Frontal view of the chest. COMPARISON: 10/27/2023 and 01/04/2023 FINDINGS: Lungs and pleural spaces: There is moderate consolidation in the left midlung. Patchy consolidation present left lung base. There is groundglass density and linear scarring in the right midlung in the area of previously seen consolidation. No pleural effusion or pneumothorax. Heart: Stable cardiomegaly. Mediastinum: Hiatal hernia present. Bones/joints: No fracture, erosion or dislocation. Soft tissues: No abnormality noted. No radiopaque foreign body noted. Upper abdomen: No abnormality noted. IMPRESSION: 1. Left pulmonary infiltrate most likely reflects pneumonia. Follow-up until resolution recommended. 2. Groundglass density in the right midlung and the site of previous pneumonia could reflect scarring. Acute pneumonitis not excluded. ACT 112: Negative or not required by law. Electronically signed by Ashley Zuñiga 09-06-2024 09:12 AM Discharge Plan Visit Data Chief Complaint: Illness Stated Complaint: ILLNESS ED Provider: Rolando Becerra Discharge Problem: Left lower lobe pneumonia, Hypoxia, Severe sepsis Forms Stand Alone Forms: [facility] Prescriptions Prescriptions: No Action oxycodone 10 mg tablet 10 mg PO BID PRN (Reason: pain) Qty: 60 0RF Baqsimi 3 mg/actuation spray,non-aerosol 3 mg intranasal ONCE Qty: 1 3RF Rx Instructions: Use as needed for hypoglycemia Jardiance 25 mg tablet 25 mg PO DAILY Qty: 30 5RF Rx Instructions: Take one tablet by mouth daily. miconazole nitrate 2 % cream 1 applic topical DAILY Qty: 42.5 1RF metoprolol succinate 100 mg tablet extended release 24 hr 100 mg PO QPM amlodipine 5 mg tablet 5 mg PO QAM omeprazole 40 mg capsule,delayed release(DR/EC) 40 mg PO DAILYBB Rx Instructions: TAKE THIS MEDICATION ONCE DAILY ONE HOUR BEFORE FIRST MEAL OF THE DAY famotidine 20 mg tablet 20 mg PO HS nitroglycerin 0.4 mg tablet, sublingual 0.4 mg Sublingual UD PRN (Reason: Chest Pain) Rx Instructions: PLACE ONE TABLET UNDER THE TONGUE EVERY 5 MINUTES FOR UP TO 3 DOSES OVER 15 MINUTES IF NEEDED FOR CHEST PAIN prasugrel 10 mg tablet 10 mg PO QAM Novolin N NPH U-100 Insulin 100 unit/mL suspension 25 unit subcut BIDM Rx Instructions: ADMINISTER BEFORE BREAKFAST AND DINNER aspirin 81 mg Tablet,Delayed Release (Dr/Ec) 81 mg PO QAM lisinopril 10 mg tablet 10 mg PO HS metformin 500 mg tablet extended release 24 hr 500 mg PO HS Advanced Probiotic 625 mg (10 billion cell) Capsule 2 cap PO DAILY Qty: 10 0RF Rx Instructions: Unable to verify w/ pt at this date/time. furosemide 20 mg tablet 20 mg PO UD Rx Instructions: Take 40mg by mouth on Mon/Wed/Fri and 20mg all other days. rosuvastatin 40 mg tablet 40 mg PO PM gabapentin 300 mg capsule 300 mg PO BID Patient Comments: patient not sure of dosage diclofenac sodium 1 % Gel 2 g TOPICAL QID PRN (Reason: Pain) Rx Instructions: Unable to verify w/ pt at this date/time. isosorbide mononitrate 30 mg tablet extended release 24 hr 30 mg PO DAILY citalopram 20 mg tablet 20 mg PO QAM Referrals Referrals: Shyla Rodney DO [Primary Care Provider] - Discharge Problem: Left lower lobe pneumonia Qualifiers: Pneumonia type: due to unspecified organism Qualified Code(s): J18.9 - Pneumonia, unspecified organism
[2024-09-06 08:58] LABS: Albumin Globulin Ratio 1.2 (0.9-2); Albumin Level 3.7 gm/dl (3.4-5.0); BUN Creatinine Ratio 22.8 (10-20); Bilirubin,Total 0.7 mg/dl (0.2-1.0); Calcium 8.6 mg/dl (8.6-10.3); Creatinine Clr Calc Pharmacy 43.1 ml/min; Globulin 3.1 gm/dl (2.5-4.0); Magnesium 1.8 mg/dl (1.7-2.4); Potassium 4.1 mmol/L (3.5-5.1); Total Protein 6.8 gm/dl (6.0-8.3)
[2024-09-06 09:04] LABS: Troponin I High Sensitivity 5.6 pg/ml (0-14)
--- NOTE | 2024-09-06 09:13 | XRay Report ---
EXAM: Radiograph of the Chest 1 View INDICATION: Cough. TECHNIQUE: Frontal view of the chest. COMPARISON: 10/27/2023 and 01/04/2023 FINDINGS: Lungs and pleural spaces: There is moderate consolidation in the left midlung. Patchy consolidation present left lung base. There is groundglass density and linear scarring in the right midlung in the area of previously seen consolidation. No pleural effusion or pneumothorax. Heart: Stable cardiomegaly. Mediastinum: Hiatal hernia present. Bones/joints: No fracture, erosion or dislocation. Soft tissues: No abnormality noted. No radiopaque foreign body noted. Upper abdomen: No abnormality noted. IMPRESSION: 1. Left pulmonary infiltrate most likely reflects pneumonia. Follow-up until resolution recommended. 2. Groundglass density in the right midlung and the site of previous pneumonia could reflect scarring. Acute pneumonitis not excluded. ACT 112: Negative or not required by law. Electronically signed by Ashley Zuñiga 09-06-2024 09:12 AM
[2024-09-06 09:15] LABS: Partial Thromboplastin Ratio 0.7
[2024-09-06] MEDS: PIPERACILLIN/TAZOBACTAM 4.5 GM/100 ML BAG IV ONE (09:17)
[2024-09-06 09:19] LABS: Influenza A virus by PCR Negative (Neg); Influenza B virus by PCR Negative (Neg); RSV by PCR Negative (Neg); SARS CoV2 RNA(COVID-19) Ceph NEGATIVE (Negative)
[2024-09-06 09:20] LABS: Partial Thromboplastin Time < 20 Seconds (21-31)
--- NOTE | 2024-09-06 09:48 | History & Physical Report ---
Date of Service September 06, 2024 Assessment & Plan (1) Left lower lobe pneumonia: Plan: patient with fatigue, cough, diarrhea, chills, rhinorrhea - CXR showing left pulmonary infiltrate that reflects pneumonia, groundglass density in right midlung possible scarring vs acute pneumonitis - does not meet SIRS criteria at this time - VSS, lactate negative (1.2), no leukocytosis - Pro-Tonio negative (0.10) ED course: Decadron 10 mg, Zosyn, doxycycline, 1 L NSS - with COVID negative, discontinue Decadron - Switch to Rocephin and continue doxycycline - trend CBC - incentive spirometry (2) Hypoxia: Plan: patient does not use oxygen at baseline - 88% in ED -> 2 L O2 NC - wean O2 as tolerated with tx above (3) CKD (chronic kidney disease), stage III: Plan: - creatinine 1.27 on admission (baseline) - avoid nephrotoxic agents - trend BMP (4) Chronic systolic CHF (congestive heart failure): Plan: History of HFpEF, no signs of acute exacerbation on admission - Last echocardiogram 10/2022 showed EF 55 to 59%, mildly increased wall thickness, small basal inferior and posterior wall motion abnormality with akinesis of segments, bicuspid aortic valve, mild aortic regurg, mod/severe aortic stenosis - Heart healthy diet - continue furosemide - Strict I&O monitoring - Daily weights (5) DM type 2 (diabetes mellitus, type 2): Plan: Controlled on insulin, Jardiance, and metformin at home - Most recent A1C 7.9 - hold metformin - on Novolin NPH 25 units twice daily; will dose reduce to 18 units BID - light SSI with target BSG range 110-140mg/dL, CF 30 - continue Jardiance with CKD and HF above - T2DM diet (6) CAD (coronary artery disease): Plan: history of CAD with aortic stenosis as above, stents in 2006, 2010, and 2014 - On prasugrel and baby ASA at home; continue - continue home Imdur and statin (7) Hypomagnesemia: Plan: Likely secondary to diarrhea - 1.8 on admission - Start daily p.o. supplement - Trend mg Plan Chronic stable diagnoses: HTN - continue amlodipine, lisinopril, metoprolol chronic pain - continue gabapentin and oycodone prn GERD - continue Pepcid, PPI Anxiety/depression - continue citalopram VTE ppx: Heparin Diet: T2DM, heart healthy Code status: Full Dispo: Med surg Admission and Anticipated Discharge Date Admission Date: 09/06/24 History of Present Illness Chief Complaint: illness/SOB Primary Care Provider: Shyla Rodney DO Patient is a 74-year-old female with a past medical history of type 2 diabetes insulin-dependent, OA, anemia, fibromyalgia, stage III CKD, CAD with stents, HFpEF. she presents today due to illness. Patient reports fatigue, cough, diarrhea, chills, sore throat, rhinorrhea. She stated that she has had fatigue for the past few days, the other symptoms began this morning. She has had only 1 episode of diarrhea. She lives at home with her son who tested positive for COVID last week, her COVID test was negative on admission. She denies sputum production, only a mild cough that began this morning. Patient denies fever, headache, dizziness, lightheadedness, dyspnea, dyspnea on exertion, chest pain, abdominal pain, nausea, vomiting, dysuria, hematuria, edema, numbness, tingling. She took all of her home medications this morning. She does not use oxygen at baseline. She wishes to be full code at this time. Allergies Allergy/AdvReac Type Severity Reaction Status Date / Time niacin Allergy Severe HOT/BURNING Verified 09/06/24 09:35 FEELING Iodinated Contrast Media Allergy Intermediate ITCHING Verified 09/06/24 09:35 WITH IVP DYE sitagliptin AdvReac Severe PANCREATITI Verified 09/06/24 09:35 S Home Medications Medication Instructions Recorded Confirmed Type amlodipine 5 mg tablet 5 mg PO QAM 08/22/18 09/06/24 History famotidine 20 mg tablet 20 mg PO HS 08/22/18 09/06/24 History metoprolol succinate 100 mg 100 mg PO QPM 08/22/18 09/06/24 History tablet,extended release 24 hr nitroglycerin 0.4 mg sublingual 0.4 mg sublingual UD PRN Chest Pain 08/22/18 09/06/24 History tablet omeprazole 40 mg capsule,delayed 40 mg PO DAILYBB 08/22/18 09/06/24 History release prasugrel 10 mg tablet 10 mg PO QAM 08/22/18 09/06/24 History insulin NPH isoph U-100 human 100 25 unit subcut BIDM 04/05/19 09/06/24 History unit/mL subcutaneous suspension (Novolin N NPH U-100 Insulin isophane) aspirin 81 mg tablet,delayed 81 mg PO QAM 09/27/20 09/06/24 History release rosuvastatin 40 mg tablet 40 mg PO PM 04/16/21 09/06/24 History diclofenac sodium 1 % topical gel 2 g topical QID PRN Pain 08/25/21 09/06/24 History isosorbide mononitrate 30 mg 30 mg PO DAILY 08/25/21 09/06/24 History tablet,extended release 24 hr lisinopril 10 mg tablet 10 mg PO HS 03/20/22 09/06/24 History metformin 500 mg tablet,extended 500 mg PO HS 03/20/22 09/06/24 History release 24 hr L.acidop,casei,lactis,rham-B.lact,adrien 2 cap PO DAILY #10 caps 03/22/22 09/06/24 Rx 625 mg (10 billion cell) capsule (Advanced Probiotic) furosemide 20 mg tablet 20 mg PO UD 10/27/23 09/06/24 History gabapentin 300 mg capsule 300 mg PO BID 03/26/24 09/06/24 History oxycodone 10 mg tablet 10 mg PO BID PRN pain #60 tabs 08/15/24 09/06/24 Rx empagliflozin 25 mg tablet 25 mg PO DAILY #30 tabs 08/21/24 09/06/24 Rx (Jardiance) miconazole nitrate 2 % topical 1 applic topical DAILY #42.5 grams 08/31/24 09/06/24 Rx cream glucagon 3 mg/actuation nasal 3 mg intranasal ONCE #1 ea 09/05/24 09/06/24 Rx spray (Baqsimi) citalopram 20 mg tablet 20 mg PO QAM 09/06/24 09/06/24 History Past Med/Surg History Problem List (Updated 09/06/24 @ 10:51 by Lori Langley PA-C) Hypomagnesemia Severe sepsis (Acute) Hypoxia (Acute) Left lower lobe pneumonia (Acute) Hypoglycemia (Acute) Hyperlipidemia Hypertension Chronic pain syndrome Hypoxia (Acute) VICNE (obstructive sleep apnea) Acute hypoxic respiratory failure Aspiration pneumonia DM type 2 (diabetes mellitus, type 2) Osteoarthritis Fibromyalgia CKD (chronic kidney disease), stage III Chronic systolic CHF (congestive heart failure) Hiatal hernia Vomiting DEREJE III (vulvar intraepithelial neoplasia III) DVT prophylaxis CAD (coronary artery disease) Weakness (Acute) Multifocal pneumonia (Acute) Nausea & vomiting (Acute) Carotid artery stenosis Aortic stenosis Moderate aortic stenosis present (MG 18.6, VERONIQUE 0.88) per 05/29/19 DSE; possible bicuspid AV per 12/2018* Bicuspid aortic valve Hx of sciatica History of spinal fusion Rupture of left proximal biceps tendon H/O total knee replacement History of difficult intubation Hx glidescope intubation: 08/24/16: Left TKA: Glidescope #3, ETT 7.0 + PNB at [facility] History of total knee arthroplasty RIGHT Osteoarthritis of left knee Anemia Chronic deep vein thrombosis (DVT) Per records dating back to 2015; patient denies Medical History Acute kidney injury superimposed on CKD Leukocytosis Confusion Weakness Pneumonia Hypoxia Polyarthritis of multiple sites PVD (peripheral vascular disease) Myocardial Infarction GERD (gastroesophageal reflux disease) Chronic kidney disease Low back pain Diabetes CAD (coronary artery disease) (07/19/14) Surgical History History of lumbar fusion History of cardiac cath History of appendectomy Family History Father Heart disease Myocardial infarction Grandfather (Paternal) Myocardial infarction Denies family history of Ovarian cancer Prostate cancer Breast cancer Colorectal cancer Social History Smoking Status: Former smoker Tobacco Type: Cigarettes Age Started Using Tobacco: 0; Age Quit Using Tobacco: 0; packs per day: 0; Smoking End Date: 2014; Second Hand Exposure: No; Do You Dip or Chew Tobacco: No; Hx Alcohol Use: Yes Alcohol type: hard liquor Hx Substance Use: No Preferred Language: Tamaz[place] Communication Ability: Effective Visual Impairment: No Limitations Hearing Ability: Normal Deaf Teacher Required: No Beliefs That Will Affect Care: None marital status: / Current Living Situation: Family Current Living Situation Comment: son current occupational status: retired Other Information That Helps Us Care for You: No Feels Safe at Home: Yes Safety Concerns: Feels Safe At This Time Childhood Exposure to Second-Hand Smoke: Yes Physical Activity Frequency: Daily Seatbelt Use: always Sunscreen Use: No Assistive Devices: Glasses, Oxygen - Continuous and Stair Lift Review of Systems Review of Systems: see HPI Physical Exam Physical Exam: The patient is lethargic, alert and oriented 3, well developed and well nourished, normocephalic and atraumatic, in no acute distress. Non-toxic appearing. HEENT- EOMI, mucous membranes dry. Hearing grossly intact. Heart-normal S1 and S2. No murmurs, rubs or gallops. Lungs-decreased bilaterally, no respiratory distress, no accessory muscle use. 2 L O2 via nasal cannula. Abdomen-normal bowel sounds and soft. No ascites noted. Non-tender. Extremities- no clubbing, cyanosis, or edema. Rheumatologic-normal range of motion. Results & Data Results & Data Vital Signs (Past 12 Hours) Vital Signs Temp Pulse Pulse Resp BP BP Pulse Ox 09/06/24 09:21 75 16 119/73 96 09/06/24 08:44 73 09/06/24 08:06 92 09/06/24 08:06 37.2 C 78 18 128/64 88 L O2 Del Method O2 Flow Rate 09/06/24 09:21 Nasal Cannula 2 09/06/24 08:44 09/06/24 08:06 Nasal Cannula 2 09/06/24 08:06 Room Air Code Status & VTE Plan Code Status full VTE Prophylaxis Plan VTE Prophylaxis will be ordered: Yes Supervising Physician Co-Signing Physician Notes I personally saw and examined the patient. I independently reviewed the labs, EKG, imaging, problem list, medication list, past medical history and family history. I verified all dash points and agree with Lori Langley PA-C with the following exceptions and/or additions: 74 year old female presents to the ER with fatigue and shortness of breath O/E HS RRR, systolic murmur, Chest CTAB, Abdo SNT A/P Left lower lobe pneumonia - Ceftriaxone + doxycycline, incentive spirometer PG Care Time/CCT Total # of Minutes Spent Total Time Spent with Patient: Total time spent is greater than 50% in coordination of care (as documented) at patient's floor/unit and/or counseling patient: Coding Level of Care Code 29423 INT INP/OBS CARE 2/55MIN Diagnoses Left lower lobe pneumonia J18.9 Pneumonia type: due to unspecified organism Hypoxia R09.02 Stage 3b chronic kidney disease N18.32 Chronic kidney disease stage 3 subtype: stage 3b (GFR 30-44) Chronic systolic CHF (congestive heart failure) I50.22 Type 2 diabetes mellitus with diabetic nephropathy, with long-term current use of insulin E11.21; Z79.4 Diabetes mellitus complication detail: with nephropathy Diabetes mellitus complication status: with kidney complications Diabetes mellitus correction insulin use: with correction use CAD (coronary artery disease) I25.10 Hypomagnesemia E83.42 (1) Left lower lobe pneumonia Pneumonia type: due to unspecified organism Qualified Code(s): J18.9 - Pneumonia, unspecified organism (3) CKD (chronic kidney disease), stage III Chronic kidney disease stage 3 subtype: stage 3b (GFR 30-44) Qualified Code(s): N18.32 - Chronic kidney disease, stage 3b (5) DM type 2 (diabetes mellitus, type 2) Diabetes mellitus complication detail: with nephropathy Diabetes mellitus complication status: with kidney complications Diabetes mellitus correction insulin use: with correction use Qualified Code(s): E11.21 - Type 2 diabetes mellitus with diabetic nephropathy; Z79.4 - manager long term care (current) use of insulin
[2024-09-06] MEDS: DOXYCYCLINE HYCLATE 100 MG in DEXTROSE 5% MINI-B 100 ML IV STA (09:49)
[2024-09-06 10:03] LABS: Appearance Urine Clear (Clear); Bacteria Urine Automated None Seen (None Seen); Bilirubin Urine Negative (Negative); Blood Urine Negative (Negative); Cast Urine Automated 0-2 /lpf (0-2); Color Urine Yellow; Epithelial Cell Urine Auto 0-2 /hpf (0-2); Glucose Urine UA 3+ (Negative); Ketones Urine Negative (Negative); Leukocyte Esterase Urine Negative (Negative); Nitrite Urine Negative (Negative); Protein Urine 1+ (Negative); RBC Urine Automated 0-2 /hpf (0-2); Specific Gravity Urine 1.025 (1.000-1.030); Urobilinogen Urine Negative (Negative); WBC Urine Automated 0-5 /hpf (0-5); pH Urine 7.5 (4.5-7.5)
--- NOTE | 2024-09-06 11:55 | Electrocardiogram Report ---
Test Reason : Blood Pressure : */* mmHG Vent. Rate : 78 BPM Atrial Rate : 78 BPM P-R Int : 136 ms QRS Dur : 102 ms QT Int : 380 ms P-R-T Axes : 11 2 27 degrees QTcB Int : 433 ms Poor data quality, interpretation may be adversely affected Normal sinus rhythm Minimal voltage criteria for LVH, may be normal variant ( Joaquín product ) Nonspecific ST and T wave abnormality Abnormal ECG When compared with ECG of 27-Oct-2023 06:58, No significant change was found Confirmed by Tony Brambila ([id number]) on 09/06/2024 11:54:48 AM Referred By: Confirmed By: Tony Brambila
[2024-09-06] MEDS ORDERED: ACETAMINOPHEN 325 MG TAB PO PRN (13:16)
[2024-09-06] MEDS ORDERED: GLUCOSE 10 TAB/TUBE PO PRN (13:16)
[2024-09-06] MEDS ORDERED: ONDANSETRON INJ 2 MG/ML 2 ML VIAL IV PRN (13:16)
[2024-09-06] MEDS ORDERED: CARBOHYDRATES FOR HYPOGLYCEMIA PO PRN (13:16)
[2024-09-06] MEDS ORDERED: DEXTROSE 50% 50 ML SYRINGE IV PRN (13:16)
[2024-09-06] MEDS ORDERED: FUROSEMIDE 20 MG TAB PO SCH (13:16)
[2024-09-06] MEDS ORDERED: GLUCAGON FOR INJ 1 MG VIAL SQ PRN (13:16)
[2024-09-06] MEDS ORDERED: GLUCOSE 40% GEL 15 GM TUBE PO PRN (13:16)
--- OUTSIDE RECORDS SUMMARY | 2024-09-06 13:27 | External Medical Summary | Summary of Care ---
Author Name Unknown Organization [facility] Address [address] [facility] [facility] [place] [address] Phone [phone] Care Team Providers Care Outdoor Adventure Instructor Name Role Phone Shyla Rodney MD Primary Care Provider Reason for Visit * Reason Comments Follow Up Encounter Details Date Type Department Care Team (Late st Contact Info) Description 09/05/2024 11:00 AM EST Therapy Psychology, [facility] [address] [place] [address] Beni Mares, PhD [address] [place] [address] Bereavement, uncomplicated*; Adjustment disorder with depressed mood Allergies Active Allergy Reactions Criticality Noted Date Comments Iodinated Contrast Media Itching 08/18/2011 Niacin High 06/14/2019 Other reaction(s): HOT/BURNING FEELING Sitagliptin Phosphate 02/23/2024 documented as of this encounter (statuses as of 09/05/2024) Medications ONE TOUCH GLUCOSE MONITOR KITIndications:Imp aired fasting [...] NEEDED FOR FLUCTUATING SUGARS E11.9 600 Strip 07/07/20 18 Active Nitroglycerin 0.4 MG Sublingual Tablet Sublingual (Nitrostat)Indicat ions:Chest pain Place 1 Tab under the tongue every 5 minutes as needed for Pain, Chest. Up to 3 doses in 15 minutes. 25 Tab 11 07/13/20 21 Active Probiotic Daily Oral Capsule Take by mouth 1 Capsule in the morning. Active BD Insulin Syringe Ultrafine 31G X 15/64" 0.5 ML (Insulin Syringe-Needle U-100)Indications: Type 2 diabetes mellitus with hemoglobin A1c goal of less than 7.0% (HCC) Use with insulin twice daily as directed. E11.9 200 Each 1 09/08/20 22 Active NovoLOG FlexPen 100 UNIT/ML Subcutaneous Solution Pen-injector INJECT 8-12 UNITS PRIOR TO EACH MEAL -EXTRA IF NEEDED BASED ON BLOOD SUGAR 30 mL 1 02/07/20 23 Active Nystatin 108213 UNIT/GM External Cream Apply topically to affected [...] week 42.5 g 3 04/22/20 23 Active HM Vitamin B-12 TR 2000 MCG Oral Tablet Extended Release (Cyanocobalamin ER) Take by mouth daily. Active predniSONE 5 MG Oral Tablet (Deltasone)Indicat ions:Erosive osteoarthritis of both hands,Gout of left wrist, unspecified cause, unspecified chronicity TAKE 1 TABLET BY MOUTH EVERY DAY DIRECTED 90 Tablet 3 07/14/20 23 Active Lisinopril 10 MG Oral Tablet (Prinivil)Indicati ons:HTN, goal below 140/90 Take 1 Tablet by mouth every evening. 90 Tablet 3 10/26/19 24 Active Famotidine 20 MG Oral Tablet (Pepcid)Indication s:Heartburn TAKE 1 TABLET BY MOUTH BEFORE BEDTIME 90 Tablet 5 11/07/19 24 Active Vitamin D (Cholecalciferol) 50 MCG (1999) Oral Capsule Take by mouth. Ac tive Rosuvastatin Calcium 40 MG Oral Tablet (Crestor)Indicatio ns:Dyslipidemia, goal LDL below 70 TAKE 1 TABLET BY MOUTH EVERY DAY 90 Tablet 3 11/23/19 24 Active Metoprolol Succinate ER 100 MG Oral Tablet Extended Release 24 Hour (toPROL XL)Indications:Old myocardial infarct TAKE 1 TABLET BY MOUTH EVERY EVENING 90 Tablet 3 01/18/20 24 Active Ginkgo Biloba 40 MG Oral Tablet (Ginkoba) Take 1 Tablet by mouth in the morning and 1 Tablet before bedtime. Active Omeprazole 40 MG Oral Capsule Delayed Release (PriLOSEC) TAKE 1 CAPSULE BY MOUTH EVERY DAY 1 HOUR BEFORE THE FIRST MEAL OF THE DAY 90 Capsule 2 03/31/20 24 Active Prasugrel HCl 10 MG Oral Tablet (Effient) TAKE 1 TABLET BY MOUTH EVERY MORNING 90 Tablet 3 04/01/20 24 Active Gabapentin 300 MG Oral Capsule (Neurontin)Indicat ions:Lumbar degenerative disc disease,Lumbar radiculopathy, right TAKE 1 CAPSULE BY MOUTH EVERY MORNING AND TAKE 1 CAPSULE BY MOUTH EVERY EVENING 60 Capsule 11 04/13/20 24 Active traMADol HCl ER 100 MG Oral Tablet Extended Release 24 Hour (Ultram ER)Indications:Ero sive osteoarthritis of both hands Take 1 Tablet by mouth in the morning and 1 Tablet before bedtime. 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 20 Tablet 06/18/20 24 Active amLODIPine Besylate 5 MG Oral Tablet (Norvasc) TAKE 1 TABLET BY MOUTH EVERY DAY 90 Tablet 1 07/24/20 24 Active Furosemide 20 MG Oral Tablet (Lasix)Indications :Heart failure, systolic, due to CAD (HCC) TAKE 2 TABLETS BY MOUTH ON MONDAYS, WEDNESDAYS, AND FRIDAYS. TAKE 1 TABLET BY MOUTH ON ALL OTHER DAYS OF THE WEEK 135 Tablet 3 07/24/20 24 Active NovoLIN N 100 UNIT/ML Subcutaneous Suspension (insulin isophane human) INJECT 40 UNITS SUBCUTANEOUSLY (UNDER THE SKIN) BEFORE BREAKFAST AND DINNER 90 mL 08/07/20 Active metFORMIN HCl ER 500 MG Oral Tablet Extended Release 24 Hour (Glucophage XR)Indications:Typ e 2 diabetes mellitus with hemoglobin A1c goal of less than 8.0% (HCC) TAKE 1 TABLET BY MOUTH AT BEDTIME 90 Tablet 1 08/17/20 24 Active Citalopram Hydrobromide 20 MG Oral Tablet (CeleXA) TAKE 1 TABLET BY MOUTH EVERY MORNING 90 Tablet 1 08/29/20 24 Active documented as of this encounter (statuses as of 09/05/2024) Active Problems Problem Noted Date Diagnosed Date ILD (interstitial lung disease) 11/02/2023 Type 2 diabetes mellitus wit h stage 3a chronic kidney disease, with long-term current use of insulin 11/02/2023 Moderate aortic valve stenosis 09/02/2021 VINCE (obstructive sleep apnea) 08/20/2021 Chronic kidney disease, stage 3b 03/24/2021 Overview: Per CKD protocol Coronary artery disease invo lving [place] coronary artery of [place] heart without angina pectoris 02/13/2019 Chronic systolic heart failure 02/13/2019 Type 2 diabetes mellitus wit h hemoglobin A1c goal of less than 8.0% 02/02/2019 HTN, goal below 130/80 12/15/2015 Overview: Per HTN Protocol #27. Old KS (myocardial infarction) 04/21/2015 Dyslipidemia 11/15/2012 Peripheral vascular disease 07/30/2009 S/P angioplasty with stent 08/09/2007 Bicuspid aortic valve Generalized osteoarthritis Erosive osteoarthritis of both hands Fibromyalgia documented as of this encounter (statuses as of 09/05/2024) Resolved Problems Problem Noted Date Diagnosed Date [...] control in clinical research program 02/05/2019 05/12/2020 Overview (01/26/2021): DO NOT DELETE [facility] DETECT Study: Project # [id number], Client Architect: Jona Mckeon, PhD. SUMMARY: Goal: Establish test [...] contact study staff at ; after hours Client Architect via the [facility] speed operator . Please contact study team before resolving/deleting from patients problem list. Study phone number: [phone]. Diagnosis changed due to Research Module. Go to Snapshot for study details. Encounter for examination fo r normal comparison and control in clinical research program 02/05/2019 06/10/2022 Overview (01/26/2021): DO NOT DELETE [facility] DETECT Study: Project # [id number], Client Architect: Vipin Carvalho, MS, MPH. SUMMARY: Goal: Establish [...] contact study staff at ; after hours Client Architect via the [facility] hospital speed operator . - Please contact study team before resolving/deleting from patients problem list. Study phone number: [phone]. Diagnosis changed due to Research Module. Go to Snapshot for study details. Type 2 diabetes mellitus wit h stage 3 chronic kidney disease, with long-term current use of insulin 02/02/2019 02/19/2021 Overview: Per CKD protocol Hypertensive kidney disease with chronic kidney disease stage III 02/02/2019 03/20/2019 ADVANCE DIRECTIVE INFORMATION 01/03/2019 12/30/2021 Overview (04/22/2006): Information given at previous visit Depression 06/21/2018 [...] Protocol #27. HTN, GOAL BELOW 130/80 11/06/200906/01 Overview (11/06/2009): Per HTN Taxonomy. Dyslipidemia, goal LDL below 100 09/25/2009 10/26/2011 Overview (09/25/2009): Per Lipid Taxonomy. Type 2 diabetes mellitus, wi th long-term current use of insulin 08/07/2009 04/05/2023 Overview (02/03/2016): Per Diabetes Taxonomy. ICD-10 update of inactive term Dyslipidemia, goal to be determined 07/30/2009 09/25/2009 Overview (09/25/2009): Per Lipid Taxonomy. S/P angioplasty with stent 08/09/2007 0 11/07/2008 Overview (11/07/2008): Resolved per Duplicate Protocol #2. EXAMINATION OF PARTICIPANT I N CLINICAL TRIAL- Event registry 06/29/2007 08/01/2008 Overview (06/29/2007): Study Titile: Event Registry Project #[id number] PI: Rachna Manley MD Please call [phone] with study related questions [employer] Card[employer] Research Other*[id number] 06/29/2007 11/16/2016 Overview (11/22/2014): Study Title: Genomic Markers for Patients with Cardiovascular Disease Project # [id number] Client Architect: Rachna Manley MD [phone] Type 2 diabetes mellitus wit h hemoglobin A1c goal of less than 7.0% 11/15/2005 08/07/2009 Overview (02/03/2016): Per Diabetes Taxonomy. ICD-10 update of inactive term Spondylolisthesis 05/11/2004 12/30/2021 HTN, goal below 140/90 12/08/200011/06 Overview (11/06/2009): Per HTN Taxonomy. S/P total knee replacement, left 04/05/2023 documented as of this encounter (statuses as of 09/05/2024) Immunizations Name Administration Dates Next Due COVID-19 mRNA, LNP-s, No Pre serve, 2-Dose Series (e-Tag) 10/06/2021,01/05/2021,12/09/2020 COVID-19, LNP-s, No Preserve , Angus-sucrose, Ages 12+ (Pfizer) 03/10/2022 Covid-19, Mrna, Lnp-s, Pf, B ivalent, 30 Mcg, IM, 12 yrs and above (Pfizer) 07/13/2022 Pneumococcal Conjugate Vacc, 13 Valent (Prevnar) 11/25/2016 Pneumococcal Polysaccharide PPV23 (Pneumovax) 05/09/2018,07/18/2006 RSV Vac., Recomb, Adjuvant, PF,0.5 Ml (Arexvy) 09/16/2023 Seasonal Influenza Vac., MDV , IM, 0.5 mL (Fluzone) 06/19/2015,06/13/2014,09/27/2013,08/29,08/20/2008,07/25/2007,07/18/2006 Seasonal Influenza, High Dos e, Trivalent, PF, IM (Fluzone HD) 07/28/2019 Seasonal Influenza, PF, 6 M & above, IM , (FluLaval or Fluzone) 07/04/2023,06/30/2021,08/24/2018,07/05 Seasonal Influenza, Quadriva lent Hd (Fluzone Hd) 07/16/2022 Seasonal Influenza, Quadriva lent, No Preserve, IM 06/24/2016 Seasonal Influenza, Trivalen t, Adjuvanted, 65+ YRS, PF, (Fluad) 06/10/2020,07/20/2019 TD, Preservative Free 01/09/1996 TDAP (age 10 and older)(Boostrix) 09/13/2019 TDAP, Age 7 and older, IM (Adacel) 07/30/2009 Varicella Zoster Vaccine (Adult) 07/07/2015 Zoster Vaccine Recombinant (Shingrix) 06/25/2020 ,03/26/2020 documented as of this encounter Social History Tobacco Use Types Packs/Day Years Used Date Smoking Tobacco: Former Cigarettes 1 40 0 05/28/1975 - 05/28/2015 Smokeless Tobacco: Never Alcohol Use Standard Drinks/Week Comments Yes 0 (1 standard drink = 0.6 oz pur e alcohol) rare PHQ-2 Answer Date Recorded PHQ Adult Total Score 6 01/20/2024 Hunger Vital Sign Answer Date Recorded Within the past 12 months, y ou worried that your food would run out before you got the money to buy more. Never true 11/08/19 24 Within the past 12 months, t he food you bought just didn't last and you didn't have money to get more. Never true 11/08/2023 Childcare Answer Date Recorded Do you feel overwhelmed with taking care of a child, family member or friend? No 11/08/2023 Does your family need help f inding childcare? (Household - for ages 0-17 years) Not on file 11/08/2023 Clothing Answer Date Recorded Have you been unable to get clothing when it was really needed? No 11/08/2023 Is your family able to get c lothes or diapers when needed? (Household - for ages 0-17 years) Not on file 11/08/2023 Personal Safety Answer Date Recorded Do you feel unsafe or have concerns for your saf ety? No 11/08/2023 Do you have concerns for you r family's safety? (Household - for ages 0-17 years) Not on file 11/08/2023 Utilities Answer Date Recorded Do you have trouble paying y our heating, water, or electric bill? No 11/08/2023 Is your family able to pay t he heat, water, or electric bill? (Household - for ages 0-17 years) Not on file 11/08/2023 Does your family have access to good internet? (Household - for ages 0-17 years) Not on file 11/08/2023 Employment Status Answer Date Recorded Are you unemployed or without regular income? No 11/08/2023 Does the household have a re gular source of income? (Household - for ages 0-17 years) Not on file 11/08/2023 Social Connections Answer Date Recorded How often do you feel lonely or isolated from th ose around you? Never 11/08/2023 Financial Resource Strain Answer Date R ecorded Do you have any trouble payi ng for your medications, or do you think you might in the future? No 11/08/2023 Does your family have troubl e paying for medicine? (Household - for ages 0-17 years) Not on file 11/08/2023 Transportation Needs Answer Date Record ed READ ONLY Do you have troubl e getting a ride to medical visits or work? Never True 11/08/2023 Does your family have a hard time getting a ride to doctors visits? (Household - for ages 0-17 years) Not on file 11/08/2023 Has lack of transportation k ept you from medical appointments, meetings, work, or from getting things needed for daily living? Check all that apply. (Adult - for ages 18 years and over) Not on file 11/08/2023 Do you (or your family) have trouble finding or paying for a ride (transportation)? (Household - for ages 0-17 years) Not on file 11/08/2023 Housing Stability Answer Date Recorded Do you currently live in a s helter or have no steady place to sleep at night? No 11/08/2023 READ ONLY Do you think you a re at risk of becoming homeless? No 11/08/2023 Does your family worry about paying for your home or becoming homeless? (Household - for ages 0-17 years) Not on file 0 11/08/2023 Are you homeless or worried that you might be in the future? (Adult - for ages 18 years and over) Not on file 01/30/202 4 Are you (or your family) tiffanie eless or worried that you might be in the future? (Household - for ages 0-17 years) Not on file Food Insecurity Answer Date Recorded Do you need food for this week? No 11/08/2023 Are you able to get enough f ood for your family? (Household - for ages 0-17 years) Not on file 11/08/2023 Does your family need food t his week? (Household - for ages 0-17 years) Not on file 11/08/2023 Do you always have enough fo od for your family? 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 I was in the same facility as the patient. After connecting through [employer], patient was verified with two unique identifiers. 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 The patient agreed to participate. Provider reviewed elements of Outpatient Services Description including limits of confidentiality, how to contact the department, risks and benefits of treatment and consent for treatment. Start Time: 0900 Stop Time: 0950 Total direct [id number] time: 50 minutes BEHAVIORAL MEDICINE PROGRESS NOTE Sami Woodall [address] [place] [address] 09/05/24 0900 TYPE OF VISIT: Individual DIAGNOSIS: Adjustment Disorder with Depressed Mood REASON FOR FOLLOW-UP: Individual therapy Session #: 18 SESSION FOCUS: bereavement NOTES: Began the session by administering and reviewing the FINN 7, PHQ 9, and CSSRS. She denied SI/HI. Pt reported that she is adjusting to her 's passing. She believes that he is in heaven and that he is happy and safe. Also she believes that he is still with her and she still talks to him. However, she continues to feel a great deal of sadness and still has some grieving to do. She has been paying more attention to her health issues. She has been attending physical therapy and has been seeingsome new providers to address her diabetes and pain issues. Her daughter has become very bothered by how the patient's son snaps at the pt. The pt reports that it doesn't bother her -- her guess is that she understands how damaged he was by his father and she knows that he loves her. He would like to control his irritability better and has been seeing a counselor for that. She feels that she willneed to sell her house soon as she is having a hard time keeping up with it. She wishes that her children were more interested in helping her maintain it. PROGRESS TOWARDS GOALS: Goal: Improved self-management of mood Objective Measures: COLUMBIA-SUICIDE SEVERITY RATING SCALE Frequent Screener [place] Suicide Severity Rating Scale Results 09/05/2024 11:00 COLUMBIA SUICIDE SEVERITY RATING SCALE (C-SSRS) Have you wished you were or wished you could go to sleep and not wake up? (In the Past Month or Since Last Visit) No Have you had any actual thoughts of killing yourself? (In the Past Month or Since Last Visit) No Have you been thinking about how you might do this? (In the Past Month or Since Last Visit) No Have you had thoughts and had some intention of acting on them? (In the Past Month or Since Last Visit) No Have you started to work out or worked out the details of how to kill yourself? Do you intend to carry out this plan? (In the Past Month or Since Last Visit) No Have you ever done anything, started to do anything, or prepared to do anything to end your life? (Lifetime) No Was this within the past 3 months? No Level of Risk No Risk Identified Protective Factors Identifies reasons for living;Social Support/Family;Future Plans Risk Factors Physical illness/chronic pain;History of Trauma;Anxiety Patient Health Questionnaire (PHQ-9): 11 (0-4 Min; Mild -5-9; Moderate 10-14; Mod Severe 15-19; Severe 20+); 07/01/23: 2; 07/15/23: 4; 12/16/23: 9; 02/22/24: 0; 05/18/24: 13; 06/22/24: 3; 07/06/24: 1; 09/05/24: 6 PHQ-9, item 9 = 0 (if anything but 0 administer [place]); 07/01/23: 0; 08/04/23: 0; 12/16/23: 0; 02/22/24: 0; 05/18/24: 0; 06/22/24: 0; 07/06/24: 0; 09/05/24: 0 Generalized Anxiety Disorder (FINN-7): 4 (0-4 Min; Mild -5-9; Moderate 10-14; Severe 15+); 07/01/23: 3; 07/15/23: 8; 12/16/23: 4; 02/22/24: 2; 05/18/24: 3; 06/22/24: 0; 07/06/24: 3; 09/05/24: 2 Travel Screening Question 09/05/2024 10:50 AM EST - Filed by Patient Do you have any of the following new or worsening symptoms? None of these Have you recently been in contact with someone who was sick? No / Unsure Myc Visit Accident Related Question Question 09/05/2024 10:50 AM EST - Filed by Patient Is this visit related to an accident? (i.e work, motor vehicle) No INTERVENTION: Outpatient Adult Therapy Treatment Plan Please see the tx plan section PATIENT EDUCATION: Verbal & written MENTAL STATUS [...] Screening and Assessment Measures PHQ-9, item 9: Negative C-SSRS administered yes Risk Factors: - Current [...] regulation/self-soothing skills present: yes -has cultural or islam beliefs that discourage suicide: yes Risk Level Impression: -Low risk: Initiate outpatient therapy; safety plan may still be indicated; provided crisis numbers Crisis Plan: PLAN INCLUDED IN TREATMENT PLAN FOLLOW-UP PLAN: Return: 6 week(s) Action Plan: 1. Continue Cognitive Behavioral Therapy Treatment plan reviewed with the patient. Patient voices understanding and concurs with plan. Beni Mares, PhD Division of Psychiatry & Behavioral Medicine [facility] [phone] documented in this encounter Plan of Treatment Upcoming Encounters Date Type Department Care Team (Late st Contact Info) Description 10/17/2024 11:00 AM EST Therapy Psychology, [facility] [address] [place] [address] Beni Mares, PhD [address] [facility] [facility] [place] [address] 11/09/2024 11:00 AM EST Nurse Only [facility] [place] [address] [facility] [place] [address] [facility] [address] [place] [address] 01/22/2025 11:20 AM EDT Office Visit Nephrology, [facility] [place] [address] Clint Myers MD [address] [facility] [place] [address] Scheduled Procedures Name Priority Associated Diagnoses Date/Ti me ESOPHAGOGASTRODUODENOSCOPY ( EGD), FLEXIBLE, TRANSORAL, DIAGNOSTIC Recall Gastroesophageal reflux disease, unspecified whether esophagitis present COLONOSCOPY FLEXIBLE PROXIMAL DIAGNOSTIC Recall History of colonic polyps Health Maintenance Due Date Last Done Comments Cologuard 1996 Fecal Occult Blood Test 1996 Sigmoidoscopy 1996 Mammogram 04/08/2024 04/08/2023, 03/12, 04/06/2022, Additional history exists COVID-19 Vaccine ( season) 2024 07/13/2022, 03/10/2022, 10/06/2021, Additional history exists Influenza Vaccine (FLU shot) (#1) 2024 07/04/2023, 07/04/2023, 07/16/2022, Additional history exists Diabetic Eye Exam 09/06/2024 09/06/2023, , 08/13/2021, Additional history exists Diabetic Foot Exam 09/06/2024 09/06/2023, 0 06/03/2021, 03/25/2020, Additional history exists GFR 11/04/2024 05/04/2024, 10/11, 04/20/2023, Additional history exists HbA1c 11/04/2024 05/04/2024, 04/09, 06/04/2022, Additional history exists Depression Screening 01/19/2025 01/20/2024 Albumin/Creatinine Ratio 05/04/2025 024, 04/20/2023, 03/25/2022, Additional history exists CKD HGB USE SMARTSET 05431 05/04/202505/04, 05/04/2024, 10/31/2023, Additional history exists CKD PHOS USE SMARTSET 87747 05/04/202504/10, 10/31/2023, 04/20/2023, Additional history exists Colonoscopy 06/07/2026 06/07/2023, 05/11, 08/29/2019, Additional history exists Colorectal Cancer Screening 06/07/2026 DXA Scan 11/09/2028 11/09/2021, 10/12, 12/27/2016 DTap/Tdap Vaccines (3 - Td or Tdap) 09/13/2029 09/13/2019, 07/30/2009, 01/09/1996, Additional history exists Pneumococcal Vaccine: 65+ Years Completed 05/09/2018, 11/25/2016, 07/18/2006 Zoster Vaccines Completed 06/25/2020, 03/10, 07/07/2015 Lung Cancer Screening Completed 02/15/2023 , 04/06/2022, 05/09/2020, Additional history exists RETIRED - COLONOSCOPY-EVERY 2 YRS AGES 18-100 Discontinued 06/07/2023, 06/07/2023, 08/29/2019, Additional history exists HPV (Gardasil) Vaccine Aged Out No lo nger eligible based on patient's age to complete this topic Hepatitis B Vaccine Aged Out No longe r eligible based on patient's age to complete this topic MENINGOCOCCAL (MENACTRA/MENVEO) Aged Out No longer eligible based on patient's age to complete this topic documented as of this encounter Medical Devices Not on filedocumented as of this encounter Visit Diagnoses Diagnosis Bereavement, uncomplicated- Primary Adjustment disorder with depressed mood documented in this encounter Advance Directives * Full Code (Latest Code Status on File) Date Activated Date Inactivated Comments 07/04/2018 11:03 AM 07/04/2018 5:07 PM This order reflects the patients wishes and were consensually agreed upon. Care Teams Outdoor Adventure Instructor Relationship Specialty Start Date End Date Shyla Rodney MD [address] [place] [address] PCP - General Family Medicine 05/01/24 documented as of this encounter
[2024-09-06] MEDS: INSULIN ASPART PER UNIT CHARGE SC SCH (14:13)
[2024-09-06] MEDS: oxyCODONE HCL IR 5 MG TAB (IMMEDIATE RELEASE) PO PRN (14:19)
[2024-09-06] MEDS: cefTRIAXone SODIUM 2,000 MG/50 ML BAG IV SCH (16:19)
[2024-09-06] MEDS: MAGNESIUM OXIDE 400 MG TAB PO SCH (16:19)
[2024-09-06] MEDS: CALCIUM CARBONATE 500 MG CHEWABLE TAB PO PRN (20:24)
[2024-09-06] MEDS: ROSUVASTATIN CALCIUM 20 MG TAB PO SCH (20:47)
[2024-09-06] MEDS: GABAPENTIN 300 MG CAP PO SCH (20:47)
[2024-09-06] MEDS: lisinopril 10 MG TAB PO SCH (20:47)
[2024-09-06] MEDS: DOXYCYCLINE HYCLATE 100 MG CAP PO SCH (20:47)
[2024-09-06] MEDS: FAMOTIDINE 20 MG TAB PO SCH (20:47)
[2024-09-06] MEDS: METOPROLOL SUCC 50MG EXT REL TAB PO SCH (20:50)
[2024-09-06] MEDS: HEPARIN SOD 5,000 UNIT/0.5 ML VIAL SQ SCH (20:50)
[2024-09-06] MEDS: LANTUS PER UNIT CHARGE SQ SCH (21:37)
[2024-09-07 06:49] LABS: Basophils # (auto) 0.02 K/uL (0.00-0.20); Basophils % (auto) 0.1 %; Hematocrit (blood only) 33.7 % (37.0-47.0); Hemoglobin 10.5 g/dl (12.0-16.0); Immature Granulocytes % (auto) 0.7 %; Lymphocytes # (auto) 1.49 K/uL (1.20-3.40); Lymphocytes % (auto) 10.1 %; Mean Corpuscular Hemoglobin 25.4 pg (25.0-34.0); Mean Corpuscular Hgb Conc 31.2 g/dL (32.0-36.0); Mean Corpuscular Volume 81.6 fL (80.0-100.0); Monocytes # (auto) 0.93 K/uL (0.11-0.59); Monocytes % (auto) 6.3 %; Neutrophils # (auto) 12.18 K/uL (1.40-6.50); Neutrophils % (auto) 82.8 %; Platelet Count 283 K/uL (130-400); RDW Coefficient of Variation 16.3 % (11.5-14.5); RDW Standard Deviation 48.7 fL (36.4-46.3); Red Blood Count 4.13 M/uL (4.20-5.40); White Blood Count 14.72 K/ul (4.8-10.8)
[2024-09-07 07:05] LABS: BUN Creatinine Ratio 23.9 (10-20); Calcium 8.4 mg/dl (8.6-10.3); Creatinine Clr Calc Pharmacy 39.4 ml/min; Magnesium 2.2 mg/dl (1.7-2.4); Potassium 4.3 mmol/L (3.5-5.1)
[2024-09-07] MEDS: amLODIPine BESYLATE 5 MG TAB PO SCH (08:37)
[2024-09-07] MEDS: ASPIRIN 81 MG ECTAB PO SCH (08:37)
[2024-09-07] MEDS: EMPAGLIFLOZIN 25 MG TAB PO SCH (08:37)
[2024-09-07] MEDS: CITALOPRAM 20 MG TAB PO SCH (08:37)
[2024-09-07] MEDS: ISOSORBIDE MONO EXTENDED REL 30 MG TABCR PO SCH (08:39)
[2024-09-07] MEDS: PRASugrel TAB 10 MG TAB PO SCH (08:39)
[2024-09-07] MEDS: FUROSEMIDE 20 MG TAB PO SCH (10:29)
[2024-09-07] MEDS: PANTOprazole 40 MG TAB PO SCH (10:29)
[2024-09-07] MEDS ORDERED: methylPREDNISolone 125 MG/2 ML VIAL IV STA (10:49)
[2024-09-07] MEDS: methylPREDNISolone 100 MG in SYRINGE 0 ML IV ONE (12:15)
--- NOTE | 2024-09-07 12:30 | Hospitalist Progress Note ---
Date of Service September 07, 2024 Assessment & Plan (1) Left lower lobe pneumonia: Plan: Probable aspiration pneumonitis. Highly doubt bacterial etiology of her chest x-ray findings where she would not look this good clinically. Procalcitonin is normal. Parenteral steroid therapy started. Antibiotics have been discontinued. (2) Hypoxia: Plan: Mild on admission. Now resolved (3) CKD (chronic kidney disease), stage III: Plan: Stable. Monitor intake and output. Serial labs (4) Chronic systolic CHF (congestive heart failure): Plan: No evidence of acute exacerbation. Monitor intake and output. Echocardiogram 10/2022 showed EF 55 to 59%, mildly increased wall thickness, small basal inferior and posterior wall motion abnormality with akinesis of segments, bicuspid aortic valve, mild aortic regurg, mod/severe aortic stenosis. Repeat cardiac echo done and report pending (5) DM type 2 (diabetes mellitus, type 2): Plan: ADA diet. Basal insulin therapy. Sliding scale coverage as needed (6) CAD (coronary artery disease): Plan: history of CAD with aortic stenosis as above, stents in 2006, 2010, and 2014 . Currently stable. Continue current medical management. Cardiac echo report is pending - On prasugrel and baby ASA at home; continue - continue home Imdur and statin (7) Hypomagnesemia: Plan: Mild. Oral supplement has been ordered Plan Hopeful discharge to home tomorrow, September 08 Admission and Anticipated Discharge Date Admission Date: September 06, 2024 Subjective Alert and oriented. Afebrile. I highly doubt her current situation is bilateral bacterial pneumonia or she would not look this good clinically. Procalcitonin is normal. I suspect she suffered aspiration pneumonitis from her vomiting episode. Parenteral steroid therapy has been started. Cardiac echo has been done and the report is pending. BNP is mildly elevated but there is no evidence of CHF on chest x-ray. She is now on room air. Hopefully she can go home tomorrow, September 08 Review of Systems 2 Review of Systems: Constitutionalno fever or chills ENTno blurred vision, no double vision, no epistaxis, no sore throat Respiratoryno cough, no wheezing, no shortness of breath Cardiacno palpitations, no chest pain, no syncope GInausea and vomiting that started on the day of admission have now resolved. Probably viral in etiology. No melena, no hematochezia GUno urinary retention, no urinary incontinence, no dysuria, no hematuria Musculoskeletalno joint pain, no muscle tenderness Skinno bruising, no rashes, no pruritus Neurono isolated weakness, no paresthesia, no weakness Psychno depression, no anxiety Physical Exam 2 Physical Exam: General-alert and oriented x3, no fever, no chills HEENT-head atraumatic and normocephalic, pupils equal and reactive to light, extraocular muscles intact Neck-no lymphadenopathy or thyromegaly, trachea midline Chest-scattered bilateral rhonchi. No rales, no wheezing Cardiac-regular rate and rhythm, normal S1 and S2 Abdomen-normal bowel sounds, no hepatosplenomegaly Extremities-no cyanosis, clubbing, or edema Neuro-cranial nerves II through XII intact, motor and sensory function within normal limits, strength symmetrical, no focal deficits Psych-normal affect, normal mood Results & Data Results & Data Vital Signs (Past 12 Hours) Vital Signs Temp Pulse Pulse Resp BP BP Pulse Ox 09/07/24 08:33 62 16 127/63 95 09/07/24 07:47 36.7 C 63 16 145/79 H 96 O2 Del Method O2 Flow Rate 09/07/24 08:33 Room Air 09/07/24 07:47 Nasal Cannula 2 Laboratory Results 09/07/24 06:25 09/07/24 06:25 PG Care Time/CCT Total # of Minutes Spent Total Time Spent with Patient: Total time spent is greater than 50% in coordination of care (as documented) at patient's floor/unit and/or counseling patient: Coding Level of Care Code 54207 SUB INP/OBS CARE 3/50MIN Diagnoses Left lower lobe pneumonia J18.9 Pneumonia type: due to unspecified organism Hypoxia R09.02 Stage 3b chronic kidney disease N18.32 Chronic kidney disease stage 3 subtype: stage 3b (GFR 30-44) Chronic systolic CHF (congestive heart failure) I50.22 Type 2 diabetes mellitus with diabetic nephropathy, with long-term current use of insulin E11.21; Z79.4 Diabetes mellitus termite exterminator insulin use: with termite exterminator use Diabetes mellitus complication status: with kidney complications Diabetes mellitus complication detail: with nephropathy CAD (coronary artery disease) I25.10 Hypomagnesemia E83.42 (1) Left lower lobe pneumonia Pneumonia type: due to unspecified organism Qualified Code(s): J18.9 - Pneumonia, unspecified organism (3) CKD (chronic kidney disease), stage III Chronic kidney disease stage 3 subtype: stage 3b (GFR 30-44) Qualified Code(s): N18.32 - Chronic kidney disease, stage 3b (5) DM type 2 (diabetes mellitus, type 2) Diabetes mellitus fdc insulin use: with fdc use Diabetes mellitus complication status: with kidney complications Diabetes mellitus complication detail: with nephropathy Qualified Code(s): E11.21 - Type 2 diabetes mellitus with diabetic nephropathy; Z79.4 - retirement (current) use of insulin
[2024-09-07] MEDS ORDERED: HYDROCORTISONE 1% CRM 30 GM TUBE EXT PRN (14:49)
[2024-09-07] MEDS ORDERED: methylPREDNISolone 10 mg/mL (For Ped Dose < 7mg) IV SCH (20:00)
[2024-09-07 20:09] VITALS: TEMP 97.7; O2SAT 96
[2024-09-07] MEDS: methylPREDNISolone 40 MG in SYRINGE 0 ML IV SCH (20:58)
[2024-09-08] MEDS: oxyCODONE HCL IR 5 MG TAB (IMMEDIATE RELEASE) PO STA (00:16)
[2024-09-08 07:12] LABS: Basophils # (auto) 0.01 K/uL (0.00-0.20); Basophils % (auto) 0.1 %; Hematocrit (blood only) 34.2 % (37.0-47.0); Hemoglobin 10.6 g/dl (12.0-16.0); Immature Granulocytes # (auto) 0.13 K/uL (0.01-0.20); Immature Granulocytes % (auto) 1.2 %; Lymphocytes # (auto) 1.08 K/uL (1.20-3.40); Lymphocytes % (auto) 9.7 %; Mean Corpuscular Hemoglobin 25.1 pg (25.0-34.0); Mean Corpuscular Volume 80.9 fL (80.0-100.0); Mean Platelet Volume 9.8 fL (9.4-12.4); Monocytes # (auto) 0.27 K/uL (0.11-0.59); Monocytes % (auto) 2.4 %; Neutrophils # (auto) 9.62 K/uL (1.40-6.50); Neutrophils % (auto) 86.6 %; Platelet Count 296 K/uL (130-400); RDW Coefficient of Variation 16.4 % (11.5-14.5); RDW Standard Deviation 47.9 fL (36.4-46.3); Red Blood Count 4.23 M/uL (4.20-5.40); White Blood Count 11.11 K/ul (4.8-10.8)
[2024-09-08 07:30] LABS: BUN Creatinine Ratio 28.9 (10-20); Calcium 8.9 mg/dl (8.6-10.3); Creatinine Clr Calc Pharmacy 39.9 ml/min; Potassium 4.6 mmol/L (3.5-5.1)
[2024-09-08 07:47] VITALS: BP 157/60; PULSE 51; RESP 16
[2024-09-08] MEDS: FUROSEMIDE 20 MG TAB PO SCH (08:10)
--- NOTE | 2024-09-08 08:15 | XRay Report ---
EXAM: Radiograph of the Chest 1 View INDICATION: Suspected CHF. TECHNIQUE: Frontal view of the chest. COMPARISON: 09/06/2024 FINDINGS: Lungs and pleural spaces: Persistent but improved patchy infiltrates throughout the left lung and decreased vascular congestion right lung. Trace right pleural effusion. No pneumothorax. Heart: Shape and configuration within normal limits allowing for technique. Mediastinum: Stable hiatal hernia. Bones/joints: No fracture, erosion or dislocation. Soft tissues: No abnormality noted. No radiopaque foreign body noted. Upper abdomen: No abnormality noted. IMPRESSION: 1. Persistent but improved pneumonia and vascular congestion. 2. Small right pleural effusion. ACT 112: Negative or not required by law. Electronically signed by Ashley Zuñiga 09-08-2024 08:15 AM
--- NOTE | 2024-09-08 10:13 | Discharge Summary ---
Discharge Summary Date of Service September 08, 2024 Principal Dx & Hospital Course #1 = Principal Diagnosis (1) Left lower lobe pneumonia: Probable aspiration pneumonitis. Highly doubt bacterial etiology of her chest x-ray findings where she would not look this good clinically. Procalcitonin is normal. Treated while hospitalized with intravenous Solu-Medrol. Antibiotics were discontinued. She will be discharged on a tapering dose of low-dose predni sone. Chest x-ray done today, September 08, looks much better (2) Hypoxia: Mild on admission. Now resolved (3) CKD (chronic kidney disease), stage III: Stable. Monitor intake and output. Serial labs (4) Chronic systolic CHF (congestive heart failure): No evidence of acute exacerbation. Monitor intake and output. Echocardiogram 10/2022 showed EF 55 to 59%, mildly increased wall thickness, small basal inferior and posterior wall motion abnormality with akinesis of segments, bicuspid aortic valve, mild aortic regurg, mod/severe aortic stenosis. Repeat cardiac echo done and report pending (5) DM type 2 (diabetes mellitus, type 2): ADA diet. Basal insulin therapy. Sliding scale coverage as needed (6) CAD (coronary artery disease): history of CAD with aortic stenosis as above, stents in 2006, 2010, and 2014 . Currently stable. Continue current medical management. Cardiac echo report is pending (7) Hypomagnesemia: Mild. Treated while hospitalized with oral supplement Plan Home today, September 08 Admission HPI Per Admitting Provider Patient is a 74-year-old female with a past medical history of type 2 diabetes insulin-dependent, OA, anemia, fibromyalgia, stage III CKD, CAD with stents, HFpEF. she presents today due to illness. Patient reports fatigue, cough, diarrhea, chills, sore throat, rhinorrhea. She stated that she has had fatigue for the past few days, the other symptoms began this morning. She has had only 1 episode of diarrhea. She lives at home with her son who tested positive for COVID last week, her COVID test was negative on admission. She denies sputum production, only a mild cough that began this morning. Patient denies fever, headache, dizziness, lightheadedness, dyspnea, dyspnea on exertion, chest pain, abdominal pain, nausea, vomiting, dysuria, hematuria, edema, numbness, tingling. She took all of her home medications this morning. She does not use oxygen at baseline. She wishes to be full code at this time. Discharge Exam General-alert and oriented x3, no fever, no chills HEENT-head atraumatic and normocephalic, pupils equal and reactive to light, extraocular muscles intact Neck-no lymphadenopathy or thyromegaly, trachea midline Chest-scattered bilateral rhonchi. No rales, no wheezing Cardiac-regular rate and rhythm, normal S1 and S2 Abdomen-normal bowel sounds, no hepatosplenomegaly Extremities-no cyanosis, clubbing, or edema Neuro-cranial nerves II through XII intact, motor and sensory function within normal limits, strength symmetrical, no focal deficits Psych-normal affect, normal mood Discharge Plan Discharge Items Patient Disposition: Home - Self-Care Reason For Visit: PNEUMONIA, HYPOXIA Discharge Diagnosis: Suspected aspiration pneumonitis, transient hypoxia Activity: Resume your previous activity Non-emergency contact: Primary Care Provider Call non-emergency contact if: you have any medication questions Follow-up/Referrals: Shyla Rodney DO [Primary Care Provider] - Diet: Carb Consistent or DM2 and Heart Healthy Addtl Attending Provider Instructions: Take prednisone in a tapering dose fashion as directed. A prescription has been sent to [facility] pharmacy. All other medications remain the same Pending Studies at Discharge: No Stand-Alone Forms: [facility], Smoking Cessation Medications and DC Order Prescriptions: New prednisone 10 mg tablet See Rx Instructions .ROUTE .COMPLEX Qty: 12 0RF Rx Instructions: 10 mg orally 3 times a day for 2 days, then 10 mg twice a day for 2 days, then 10 mg once a day for 2 days, then stop Continued oxycodone 10 mg tablet 10 mg PO BID PRN (Reason: pain) Qty: 60 0RF Baqsimi 3 mg/actuation spray,non-aerosol 3 mg intranasal ONCE Qty: 1 3RF Rx Instructions: Use as needed for hypoglycemia Jardiance 25 mg tablet 25 mg PO DAILY Qty: 30 5RF Rx Instructions: Take one tablet by mouth daily. miconazole nitrate 2 % cream 1 applic topical DAILY Qty: 42.5 1RF metoprolol succinate 100 mg tablet extended release 24 hr 100 mg PO QPM amlodipine 5 mg tablet 5 mg PO QAM omeprazole 40 mg capsule,delayed release(DR/EC) 40 mg PO DAILYBB Rx Instructions: TAKE THIS MEDICATION ONCE DAILY ONE HOUR BEFORE FIRST MEAL OF THE DAY famotidine 20 mg tablet 20 mg PO HS nitroglycerin 0.4 mg tablet, sublingual 0.4 mg Sublingual UD PRN (Reason: Chest Pain) Rx Instructions: PLACE ONE TABLET UNDER THE TONGUE EVERY 5 MINUTES FOR UP TO 3 DOSES OVER 15 MINUTES IF NEEDED FOR CHEST PAIN prasugrel 10 mg tablet 10 mg PO QAM Novolin N NPH U-100 Insulin 100 unit/mL suspension 25 unit subcut BIDM Rx Instructions: ADMINISTER BEFORE BREAKFAST AND DINNER aspirin 81 mg Tablet,Delayed Release (Dr/Ec) 81 mg PO QAM lisinopril 10 mg tablet 10 mg PO HS metformin 500 mg tablet extended release 24 hr 500 mg PO HS Advanced Probiotic 625 mg (10 billion cell) Capsule 2 cap PO DAILY Qty: 10 0RF Rx Instructions: Unable to verify w/ pt at this date/time. furosemide 20 mg tablet 20 mg PO UD Rx Instructions: Take 40mg by mouth on Mon/Wed/Fri and 20mg all other days. rosuvastatin 40 mg tablet 40 mg PO PM gabapentin 300 mg capsule 300 mg PO BID Patient Comments: patient not sure of dosage diclofenac sodium 1 % Gel 2 g TOPICAL QID PRN (Reason: Pain) Rx Instructions: Unable to verify w/ pt at this date/time. isosorbide mononitrate 30 mg tablet extended release 24 hr 30 mg PO DAILY citalopram 20 mg tablet 20 mg PO QAM Discharge Orders: Discharge Order (Routine); Ordered 09/08/24 Ordered By: Barrera Kent Admission Data Admit Date/Time: 09/06/24 10:34 Attending Provider: Barrera Kent Admit Provider: Vasquez Morgan Primary Care Provider: Shyla Rodney Other Providers: Melchor [facility] Stay Data Consultations 09/06/24 09:21 ED Decision to Admit Stat Pending Results Patient Have Any Pending Studies at Discharge: No Discharge Instructions Given to Patient (Per Discharging Provider) Take prednisone in a tapering dose fashion as directed. A prescription has been sent to [facility] pharmacy. 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
[2024-09-08] MEDS: FUROSEMIDE 40 MG/4 ML VIAL IV ONE (10:50)
--- NOTE | 2024-09-08 12:23 | XCELERA ---
[id number] [id number]
== END 2024-09-08 11:44 | disposition home or self-care (01) | DRG 178 ==
LOC: ED 08:15 → 3W 10:34 → SUATTDRO 10:34 → 3W 12:46

== ENCOUNTER 2024-11-09 20:33 | Inpatient (IN) ==
[2024-11-09 21:34] LABS: Albumin Globulin Ratio 1.1 (0.9-2); Albumin Level 3.7 gm/dl (3.4-5.0); BUN Creatinine Ratio 17.2 (10-20); Bilirubin,Total 0.7 mg/dl (0.2-1.0); Calcium 8.1 mg/dl (8.6-10.3); Creatinine Clr Calc Pharmacy 35.6 ml/min; Globulin 3.4 gm/dl (2.5-4.0); Potassium 4.2 mmol/L (3.5-5.1); Total Protein 7.1 gm/dl (6.0-8.3)
[2024-11-09 21:38] LABS: Basophils # (auto) 0.06 K/uL (0.00-0.20); Basophils % (auto) 0.7 %; Eosinophils % (auto) 1.2 %; Hematocrit (blood only) 36.8 % (37.0-47.0); Hemoglobin 11.3 g/dl (12.0-16.0); Immature Granulocytes # (auto) 0.06 K/uL (0.01-0.20); Immature Granulocytes % (auto) 0.7 %; Lymphocytes # (auto) 2.09 K/uL (1.20-3.40); Lymphocytes % (auto) 24.5 %; Mean Corpuscular Hemoglobin 24.7 pg (25.0-34.0); Mean Corpuscular Hgb Conc 30.7 g/dL (32.0-36.0); Mean Corpuscular Volume 80.5 fL (80.0-100.0); Mean Platelet Volume 9.3 fL (9.4-12.4); Monocytes # (auto) 0.84 K/uL (0.11-0.59); Monocytes % (auto) 9.8 %; Neutrophils # (auto) 5.39 K/uL (1.40-6.50); Neutrophils % (auto) 63.1 %; Platelet Count 356 K/uL (130-400); RDW Coefficient of Variation 17.3 % (11.5-14.5); RDW Standard Deviation 50.4 fL (36.4-46.3); Red Blood Count 4.57 M/uL (4.20-5.40); White Blood Count 8.54 K/ul (4.8-10.8)
[2024-11-09 21:40] LABS: Troponin I High Sensitivity 4.3 pg/ml (0-14)
[2024-11-09 21:47] LABS: INR 1.1 (0.9-1.1); Partial Thromboplastin Time 26 Seconds (21-31); Prothrombin Time 11.4 Seconds (9.0-12.0)
--- NOTE | 2024-11-09 23:03 | Emergency Department Note ---
ED Visit Note The patient was seen and examined with reji. I performed a substantive portion of all aspects of the medical decision making and agree with the h istory, physical and findings. Please see the note for disposition and details. . .
--- NOTE | 2024-11-09 23:04 | XRay Report ---
Exam(s): XR CXR 1 VIEW EXAM: XR Chest, 1 View CLINICAL HISTORY: Reason for exam: Chest pain, nonspecific. TECHNIQUE: Frontal view of the chest. COMPARISON: X-ray chest: 09/08/2024 FINDINGS: Lungs: Lung volumes are normal. Bilateral mild bronchial cuffing and perihilar prominent bronchovascular markings remain with interval improvement. No consolidation. Pleural space: Blunting of right costophrenic sulcus. No pneumothorax. Heart: Mild cardiomegaly. Mediastinum: Unremarkable. Normal mediastinal contour. Bones/joints: Unremarkable. No acute fracture. Other findings: Possibly a moderate size hiatal hernia. IMPRESSION: . Cardiomegaly and mild pulmonary vascular congestion remains with improvement since comparison. Electronically signed by: Zechariah Celis MD, NIDIAR 11/09/24 23:04 PM
[2024-11-09] MEDS: HYDROCORTISONE SOD SUCCINATE 100 MG/2 ML VIAL IV STA (23:17)
--- NOTE | 2024-11-09 23:42 | History & Physical Report ---
Date of Service November 09, 2024 Assessment & Plan (1) Hypotension: (2) Severe aortic stenosis: (3) Osteoarthritis: (4) VINCE (obstructive sleep apnea): (5) Hypertension: (6) Hyperlipidemia: (7) DM type 2 (diabetes mellitus, type 2): (8) CAD (coronary artery disease): (9) GERD (gastroesophageal reflux disease): (10) CKD stage 3b, GFR 30-44 ml/min: (11) Bicuspid aortic valve: (12) PVD (peripheral vascular disease): Plan 74 yo female PMHx severe aortic stenosis, bicuspid aortic valve, CAD, CKD, HTN, HLD, GERD, PVD, T2DM on insulin, severe osteoarthritis admitted for lethargy, dizziness and found to be hypotensive. #Hypotension/Aortic Stenosis/CAD Has been largely normotensive since presenting to the ER Will hold lisinopril/amlodipine Further decrease dose of metoprolol to 25mg daily Stress dose steroids given, will continue hydrocortisone 25mg IV BID Hold Lasix Continue Imdur, ASA #HTN as above #T2DM Hold metformin Continue Jardiance Accucheck ACHS Insulin glargine 21U BID ISS #CKD III Cr at baseline #GERD continue Pepcid continue PPI #HLD Continue Crestor #OA Continue oxycodone BID Continue gabapentin #VINCE untreated FENGI: heart healthy, T2DM Code status: full DVT prophylaxis: heparin Isolation: none Disposition: med/tele History of Present Illness Primary Care Provider: CamilaSophia Rodney, DO 74 yo female PMHx severe aortic stenosis, bicuspid aortic valve, CAD, CKD, HTN, HLD, GERD, PVD, T2DM on insulin, severe osteoarthritis admitted for lethargy, dizziness and found to be hypotensive. Over the last few weeks, pt has been experiencing progressive lethargy stating that she has been unable to achieve her usual level of activity. This morning she was seen at her PCP office and found to be hypotensive and was recommended to present to the emergency department. She is currently being evaluated for aortic valve replacement with [facility]. Follows with [facility] cardiology and her metoprolol dose was recently decreased from 100mg daily to 50mg daily due to her increasing fatigue. She was on a short course of steroids in August. Currently the patient is feeling fatigued, no current dizziness, denies CP, SOB, N/V/D, LE edema ED course: Given hydrocortisone 100mg Allergies Allergy/AdvReac Type Severity Reaction Status Date / Time niacin Allergy Severe HOT/BURNING Verified 11/09/24 14:05 FEELING Iodinated Contrast Media Allergy Intermediate ITCHING Verified 11/09/24 14:05 WITH IVP DYE sitagliptin AdvReac Severe PANCREATITI Verified 11/09/24 14:05 S Home Medications Medication Instructions Recorded Confirmed Type amlodipine 5 mg tablet 5 mg PO QAM 08/22/18 11/09/24 History famotidine 20 mg tablet 20 mg PO HS 08/22/18 11/09/24 History nitroglycerin 0.4 mg sublingual 0.4 mg sublingual UD PRN Chest Pain 08/22/18 11/09/24 History tablet prasugrel 10 mg tablet 10 mg PO QAM 08/22/18 11/09/24 History aspirin 81 mg tablet,delayed 81 mg PO QAM 09/27/20 11/09/24 History release rosuvastatin 40 mg tablet 40 mg PO PM 04/16/21 11/09/24 History diclofenac sodium 1 % topical gel 2 g topical QID PRN Pain 08/25/21 11/09/24 History isosorbide mononitrate 30 mg 30 mg PO DAILY 08/25/21 11/09/24 History tablet,extended release 24 hr lisinopril 10 mg tablet 10 mg PO HS 03/20/22 11/09/24 History metformin 500 mg tablet,extended 500 mg PO HS 03/20/22 11/09/24 History release 24 hr furosemide 20 mg tablet 20 mg PO UD 10/27/23 11/09/24 History gabapentin 300 mg capsule 300 mg PO BID 03/26/24 11/09/24 History empagliflozin 25 mg tablet 25 mg PO DAILY #30 tabs 08/21/24 11/09/24 Rx (Jardiance) miconazole nitrate 2 % topical 1 applic topical DAILY #42.5 grams 08/31/24 11/09/24 Rx cream glucagon 3 mg/actuation nasal 3 mg intranasal ONCE #1 ea 09/05/24 11/09/24 Rx spray (Baqsimi) citalopram 20 mg tablet 20 mg PO QAM 09/06/24 11/09/24 History prednisone 10 mg tablet See Rx Instructions .Route 09/08/24 11/09/24 Rx .COMPLEX #12 tabs L.acidop,casei,lactis,rham-B.lact,adrien 1 cap PO DAILY #10 caps 09/11/24 11/09/24 Rx 625 mg (10 billion cell) capsule (Advanced Probiotic) oxycodone 10 mg tablet 10 mg PO BID PRN pain #60 tabs 10/15/24 11/09/24 Rx insulin NPH isoph U-100 human 100 See Rx Instructions subcut BIDM 11/06/24 11/09/24 Rx unit/mL subcutaneous suspension #10 mL (Novolin N NPH U-100 Insulin isophane) metoprolol succinate 100 mg 50 mg (1/2 x 100 mg) PO QPM #60 11/09/24 11/09/24 Rx tablet,extended release 24 hr tabs omeprazole 40 mg capsule,delayed 40 mg PO DAILYBB #90 caps 11/09/24 11/09/24 Rx release Past Med/Surg History Problem List (Updated 11/10/24 @ 00:29 by Agus Flowers DO) Hypotension CKD stage 3b, GFR 30-44 ml/min GERD (gastroesophageal reflux disease) controlled CAD (coronary artery disease) (07/19/14) Total of cardiac stents x 5 (most recent 2014) DM type 2 (diabetes mellitus, type 2) Severe aortic stenosis Hyperlipidemia Hypertension Chronic pain syndrome VINCE (obstructive sleep apnea) Osteoarthritis Fibromyalgia Hiatal hernia Vomiting DEREJE III (vulvar intraepithelial neoplasia III) Nausea & vomiting (Acute) Carotid artery stenosis Aortic stenosis Moderate aortic stenosis present (MG 18.6, VERONIQUE 0.88) per 05/29/19 DSE; possible bicuspid AV per 12/2018* Hx of sciatica Osteoarthritis of left knee Anemia Medical History Bicuspid aortic valve Rupture of left proximal biceps tendon History of difficult intubation Chronic deep vein thrombosis (DVT) DM type 2 (diabetes mellitus, type 2) CKD (chronic kidney disease), stage III Chronic systolic CHF (congestive heart failure) CAD (coronary artery disease) Acute kidney injury superimposed on CKD Leukocytosis Confusion Weakness Pneumonia Hypoxia Polyarthritis of multiple sites PVD (peripheral vascular disease) Myocardial Infarction GERD (gastroesophageal reflux disease) Chronic kidney disease Low back pain Diabetes CAD (coronary artery disease) (07/19/14) Surgical History History of spinal fusion H/O total knee replacement History of total knee arthroplasty History of lumbar fusion History of cardiac cath History of appendectomy Family History Father Heart disease Myocardial infarction Grandfather (Paternal) Myocardial infarction Denies family history of Ovarian cancer Prostate cancer Breast cancer Colorectal cancer Social History Smoking Status: Former smoker Tobacco Type: Cigarettes Age Started Using Tobacco: 0; Age Quit Using Tobacco: 0; packs per day: 0; Second Hand Exposure: No; Do You Dip or Chew Tobacco: No; Hx Alcohol Use: No Hx Substance Use: No Preferred Language: Tamaz[place] Communication Ability: Effective Visual Impairment: No Limitations Hearing Ability: Normal 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 Beliefs That Will Affect Care: None marital status: / Current Living Situation: Family Current Living Situation Comment: son current occupational status: retired Other Information That Helps Us Care for You: No Feels Safe at Home: Yes Safety Concerns: Feels Safe At This Time Childhood Exposure to Second-Hand Smoke: Yes Physical Activity Frequency: Daily Seatbelt Use: always Sunscreen Use: No Assistive Devices: None Review of Systems Review of Systems: reviewed, per HPI Physical Exam 2 Physical Exam: Constitutional: well-appearing, no acute distress HEENT: NCAT, no conjunctival injection CV: regular rhythm, +murmur, extremities well-perfused, no LE edema Resp: CTABL, no wheezes/rales/rhonchi appreciated, no increased work of breathing GI: nondistended MSK: no gross deformities appreciated Skin: warm, dry, no rash appreciated Neuro: alert, oriented, no focal neurologic deficit appreciated Results & Data Results & Data Vital Signs (Past 12 Hours) Vital Signs Temp Pulse Pulse Resp BP BP Pulse Ox 11/09/24 22:03 117/66 11/09/24 21:57 55 L 11/09/24 21:53 54 L 15 134/62 95 11/09/24 21:43 58 L 18 97 11/09/24 21:43 58 L 18 134/62 97 11/09/24 21:43 97 11/09/24 20:40 36.4 C L 62 16 121/57 L 95 O2 Del Method 11/09/24 22:03 11/09/24 21:57 11/09/24 21:53 11/09/24 21:43 Room Air 11/09/24 21:43 Room Air 11/09/24 21:43 Room Air 11/09/24 20:40 Room Air Code Status & VTE Plan VTE Prophylaxis Plan VTE Prophylaxis will be ordered: Yes Supervising Physician Co-Signing Physician Notes Attending addendum: I have physically seen this patient, have supervised the medical residents activities, and agree with the H&P unless as otherwise noted. Assessment and Plan: The patient is a 74-year-old female with a past medical history including severe aortic stenosis, bicuspid aortic valve, CAD, CKD, hypertension, hyperlipidemia, GERD, peripheral vascular disease, diabetes mellitus type 2 on insulin, severe osteoarthritis, who presents to the emergency department with progressive lethargy, dizziness, and found to be hypotensive with a systolic pressure. She presented to her PCPs office this morning, was found to be hypotensive as noted, and was recommended to come to the emergency department for assessment. She is presently undergoing an evaluation at [facility] for aortic valve replacement. 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 She reports that she was on a short course of prednisone in August. #Hypotension/aortic stenosis/CAD/hypertension- Patient is presently undergoing evaluation for aortic valve replacement at [facility]. She has been having symptoms of fatigue, lethargy over the past several weeks. He was found be hypotensive upon visitation to her PCPs office earlier in the day. Her metoprolol succinate had been decreased from 150 mg daily The patient will be admitted to telemetry for serial cardiac enzymes, serial EKG's, cardiac rhythm monitoring and a 2-D echocardiogram with Dopplers. Plan will be to further reduce blood pressure medications, and allow a more elevated blood pressure. In particular decreasing dosages of medications which would affect preload. Continue aspirin and Effient Will further decrease metoprolol succinate to 25 mg daily due to heart rate in the mid 50s Hold amlodipine 5 mg every morning, furosemide 20 mg daily, isosorbide mononitrate 30 mg daily, and lisinopril 10 mg at bedtime #Diabetes mellitus- Holding metformin and Jardiance Continue glargine with sliding scale insulin #Adrenal insufficiency- Has been on prednisone Received hydrocortisone [address] on hydrocortisone 50 mg IV every 8 hours for 2 days #CKD stage III- Creatinine 1.51, with base around 1.56 #Chronic medical conditions: GERD-continue Pepcid and pantoprazole Hyperlipidemia-continue Crestor Osteoarthritis-continue oxycodone and gabapentin Peripheral neuropathy-continue gabapentin Resident Activity Tracking Resident Involvement: Resident Care Provided Care Provided: Adult Hospital Medicine (5) Hypertension Hypertension type: primary hypertension Qualified Code(s): I10 - Essential (primary) hypertension (6) Hyperlipidemia Hyperlipidemia type: mixed hyperlipidemia Qualified Code(s): E78.2 - Mixed hyperlipidemia (7) DM type 2 (diabetes mellitus, type 2) Diabetes mellitus complication detail: with nephropathy Diabetes mellitus complication status: with kidney complications 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
[2024-11-09] MEDS: oxyCODONE HCL IR 5 MG TAB (IMMEDIATE RELEASE) PO STA (23:54)
--- NOTE | 2024-11-10 00:25 | Emergency Department Note ---
History of Present Illness General Chief complaint: Hypotension Stated complaint: ACUTE AORTIC STENOSIS,LOW BP Time Seen by Provider: 11/09/24 21:57 History of Present Illness Maximum Pain Intensity: 6 74 yo female PMHx severe aortic stenosis, bicuspid aortic valve, CAD, CKD, HTN, HLD, GERD, PVD, T2DM on insulin, severe osteoarthritis admitted for lethargy, dizziness he will be having a TAVR in the next week or 2 at [facility] presents ER for hypotension lightheadedness and generalized weakness. Patient saw the PCPs office today and was informed that she should most likely cut back on her blood pressure medicine. Son was concerned about her blood pressure and sent her in. Patient denies chest pain, dyspnea, fevers, flulike illness. They recently cut back her beta-joanna. Home Medications Medication Instructions Recorded Confirmed Type amlodipine 5 mg tablet 5 mg PO QAM 08/22/18 11/09/24 History famotidine 20 mg tablet 20 mg PO HS 08/22/18 11/09/24 History nitroglycerin 0.4 mg sublingual 0.4 mg sublingual UD PRN Chest Pain 08/22/18 11/09/24 History tablet prasugrel 10 mg tablet 10 mg PO QAM 08/22/18 11/09/24 History aspirin 81 mg tablet,delayed 81 mg PO QAM 09/27/20 11/09/24 History release rosuvastatin 40 mg tablet 40 mg PO PM 04/16/21 11/09/24 History diclofenac sodium 1 % topical gel 2 g topical QID PRN Pain 08/25/21 11/09/24 History isosorbide mononitrate 30 mg 30 mg PO DAILY 08/25/21 11/09/24 History tablet,extended release 24 hr lisinopril 10 mg tablet 10 mg PO HS 03/20/22 11/09/24 History metformin 500 mg tablet,extended 500 mg PO HS 03/20/22 11/09/24 History release 24 hr furosemide 20 mg tablet 20 mg PO UD 10/27/23 11/09/24 History gabapentin 300 mg capsule 300 mg PO BID 03/26/24 11/09/24 History empagliflozin 25 mg tablet 25 mg PO DAILY #30 tabs 08/21/24 11/09/24 Rx (Jardiance) miconazole nitrate 2 % topical 1 applic topical DAILY #42.5 grams 08/31/24 11/09/24 Rx cream glucagon 3 mg/actuation nasal 3 mg intranasal ONCE #1 ea 09/05/24 11/09/24 Rx spray (Baqsimi) citalopram 20 mg tablet 20 mg PO QAM 09/06/24 11/09/24 History prednisone 10 mg tablet See Rx Instructions .Route 09/08/24 11/09/24 Rx .COMPLEX #12 tabs L.acidop,casei,lactis,rham-B.lact,adrien 1 cap PO DAILY #10 caps 09/11/24 11/09/24 Rx 625 mg (10 billion cell) capsule (Advanced Probiotic) oxycodone 10 mg tablet 10 mg PO BID PRN pain #60 tabs 10/15/24 11/09/24 Rx insulin NPH isoph U-100 human 100 See Rx Instructions subcut BIDM 11/06/24 11/09/24 Rx unit/mL subcutaneous suspension #10 mL (Novolin N NPH U-100 Insulin isophane) metoprolol succinate 100 mg 50 mg (1/2 x 100 mg) PO QPM #60 11/09/24 11/09/24 Rx tablet,extended release 24 hr tabs omeprazole 40 mg capsule,delayed 40 mg PO DAILYBB #90 caps 11/09/24 11/09/24 Rx release Allergies Allergy/AdvReac Type Severity Reaction Status Date / Time niacin Allergy Severe HOT/BURNING Verified 11/09/24 14:05 FEELING Iodinated Contrast Media Allergy Intermediate ITCHING Verified 11/09/24 14:05 WITH IVP DYE sitagliptin AdvReac Severe PANCREATITI Verified 11/09/24 14:05 S Past Med/Surg History Problem List (Updated 11/10/24 @ 00:21 by Agus Flowers DO) CKD stage 3b, GFR 30-44 ml/min GERD (gastroesophageal reflux disease) controlled CAD (coronary artery disease) (07/19/14) Total of cardiac stents x 5 (most recent 2014) DM type 2 (diabetes mellitus, type 2) Severe aortic stenosis Hyperlipidemia Hypertension Chronic pain syndrome VINCE (obstructive sleep apnea) Osteoarthritis Fibromyalgia Hiatal hernia Vomiting DEREJE III (vulvar intraepithelial neoplasia III) Nausea & vomiting (Acute) Carotid artery stenosis Aortic stenosis Moderate aortic stenosis present (MG 18.6, VERONIQUE 0.88) per 05/29/19 DSE; possible bicuspid AV per 12/2018* Hx of sciatica Osteoarthritis of left knee Anemia Medical History Bicuspid aortic valve Rupture of left proximal biceps tendon History of difficult intubation Chronic deep vein thrombosis (DVT) DM type 2 (diabetes mellitus, type 2) CKD (chronic kidney disease), stage III Chronic systolic CHF (congestive heart failure) CAD (coronary artery disease) Acute kidney injury superimposed on CKD Leukocytosis Confusion Weakness Pneumonia Hypoxia Polyarthritis of multiple sites PVD (peripheral vascular disease) Myocardial Infarction GERD (gastroesophageal reflux disease) Chronic kidney disease Low back pain Diabetes CAD (coronary artery disease) (07/19/14) Surgical History History of spinal fusion H/O total knee replacement History of total knee arthroplasty History of lumbar fusion History of cardiac cath History of appendectomy Family History Father Heart disease Myocardial infarction Grandfather (Paternal) Myocardial infarction Denies family history of Ovarian cancer Prostate cancer Breast cancer Colorectal cancer Social History Smoking Status: Former smoker Tobacco Type: Cigarettes Age Started Using Tobacco: 0; Age Quit Using Tobacco: 0; packs per day: 0; Second Hand Exposure: No; Do You Dip or Chew Tobacco: No; Hx Alcohol Use: Yes Alcohol type: hard liquor Hx Substance Use: No Preferred Language: Yakut Communication Ability: Effective Visual Impairment: No Limitations Hearing Ability: Normal Rattling Machine Tender Required: No Beliefs That Will Affect Care: None marital status: / Current Living Situation: Family Current Living Situation Comment: son current occupational status: retired Feels Safe at Home: Yes Childhood Exposure to Second-Hand Smoke: Yes Physical Activity Frequency: Daily Seatbelt Use: always Sunscreen Use: No Assistive Devices: Cane, Stair Lift, Walker and Wheelchair Review of Systems A total of 10 systems reviewed and were otherwise negative Physical Exam Vital Signs Vital Signs - 24 hr 11/09/24 20:40 11/09/24 21:43 11/09/24 21:43 Temperature 36.4 C L Temperature Source Temporal Artery Scan Pulse Rate 62 Pulse Rate [Apical] 58 L Pulse Rate from SpO2 Sensor Pulse Rhythm Pulse Rhythm [Apical] Regular Pulse Strength [Apical] Normal Respiratory Rate 16 18 Respiratory Effort / Characteristics Non-Labored Spontaneous Respiratory Depth Normal Respiratory Pattern Regular Blood Pressure 121/57 L Blood Pressure [Right Arm] 134/62 Blood Pressure Mean 78 Blood Pressure Mean [Right Arm] 86 Blood Pressure Position [Right Arm] Semi-fowlers Pulse Oximetry 95 97 97 Oxygen Delivery Method Room Air Room Air Room Air Sepsis Recent Fever Within 48 Hours No Sepsis New/Unexplained Change in Mental Status No Sepsis Action Taken by Nursing No Action Required 11/09/24 21:43 11/09/24 21:53 11/09/24 21:57 Temperature Temperature Source Pulse Rate 58 L 54 L 55 L Pulse Rate [Apical] Pulse Rate from SpO2 Sensor 55 L Pulse Rhythm Regular Pulse Rhythm [Apical] Pulse Strength [Apical] Respiratory Rate 18 15 Respiratory Effort / Characteristics Respiratory Depth Respiratory Pattern Blood Pressure 134/62 Blood Pressure [Right Arm] Blood Pressure Mean 86 Blood Pressure Mean [Right Arm] Blood Pressure Position [Right Arm] Pulse Oximetry 97 95 Oxygen Delivery Method Room Air Sepsis Recent Fever Within 48 Hours Sepsis New/Unexplained Change in Mental Status Sepsis Action Taken by Nursing 11/09/24 22:03 11/09/24 22:38 11/09/24 23:05 Temperature Temperature Source Pulse Rate 54 L 54 L Pulse Rate [Apical] Pulse Rate from SpO2 Sensor 54 L Pulse Rhythm Pulse Rhythm [Apical] Pulse Strength [Apical] Respiratory Rate 18 17 Respiratory Effort / Characteristics Respiratory Depth Respiratory Pattern Blood Pressure 117/66 102/49 L 117/57 L Blood Pressure [Right Arm] Blood Pressure Mean 84 66 77 Blood Pressure Mean [Right Arm] Blood Pressure Position [Right Arm] Pulse Oximetry 94 Oxygen Delivery Method Sepsis Recent Fever Within 48 Hours Sepsis New/Unexplained Change in Mental Status Sepsis Action Taken by Nursing 11/10/24 00:02 Temperature Temperature Source Pulse Rate 60 Pulse Rate [Apical] Pulse Rate from SpO2 Sensor 61 Pulse Rhythm Pulse Rhythm [Apical] Pulse Strength [Apical] Respiratory Rate 18 Respiratory Effort / Characteristics Respiratory Depth Respiratory Pattern Blood Pressure 135/59 L Blood Pressure [Right Arm] Blood Pressure Mean 84 Blood Pressure Mean [Right Arm] Blood Pressure Position [Right Arm] Pulse Oximetry 98 Oxygen Delivery Method Sepsis Recent Fever Within 48 Hours Sepsis New/Unexplained Change in Mental Status Sepsis Action Taken by Nursing VITALS: Vitals are noted on the nurse's note and reviewed by myself. Vital signs stable. GENERAL: Pleasant female, in no acute distress, nondiaphoretic, well-developed well-nourished. SKIN: Capillary reflex less than 2 seconds. HEENT: Normocephalic. PERRLA. EOMI. Nares patent. Mucous membranes moist. Neck is supple without nuchal rigidity. HEART: Regular rate and rhythm, + murmur LUNGS: Clear to auscultation bilaterally without wheezes, rales or rhonchi. No retractions or accessory muscle use. ABDOMEN: Positive bowel sounds x 4. Normal tympanic percussion. Soft, nontender, without masses or organomegaly. Goldstein sign negative. No guarding or rebound tenderness. no CVA tenderness MUSCULOSKELETAL: No gross musculoskeletal defects. +1 pitting edema up to the mid tib-fib bilaterally. NEURO: Patient was alert and oriented to person place and time. No focal neurological deficits. Course Administered Medications Discontinued Medications Hydrocortisone Sodium Succinate (Hydrocortisone Sod Succinate 100 Mg/2 Ml Vial) 100 mg IV NOW STA Stop: 11/09/24 22:57 Last Admin: 11/09/24 23:17 Dose: 100 mg Documented By: YULIANA Oxycodone HCl (Oxycodone Hcl Ir 5 Mg Tab (Immediate Release)) 10 mg PO NOW STA Stop: 11/09/24 23:41 Last Admin: 11/09/24 23:54 Dose: 10 mg Documented By: YULIANA Medical Decision Making Medical Records Attestation: I reviewed the patient's medical records. Home Medications Current Medication List: was personally reviewed by me Laboratory Data Attestation: I reviewed the patient's lab results. 11/09/24 21:00 11/09/24 21:00 Lab Results 11/09/24 Range/Units 21:00 WBC 8.54 (4.8-10.8) K/ul RBC 4.57 (4.20-5.40) M/uL Hgb 11.3 L (12.0-16.0) g/dl Hct 36.8 L (37.0-47.0) % MCV 80.5 (80.0-100.0) fL MCH 24.7 L (25.0-34.0) pg MCHC 30.7 L (32.0-36.0) g/dL RDW Std Deviation 50.4 H (36.4-46.3) fL RDW Coeff of Jovana 17.3 H (11.5-14.5) % Plt Count 356 (130-400) K/uL MPV 9.3 L (9.4-12.4) fL Immature Gran % (Auto) 0.7 % Neut % (Auto) 63.1 % Lymph % (Auto) 24.5 % [place] % (Auto) 9.8 % Eos % (Auto) 1.2 % Baso % (Auto) 0.7 % Neut # (Auto) 5.39 (1.40-6.50) K/uL Lymph # (Auto) 2.09 (1.20-3.40) K/uL [place] # (Auto) 0.84 H (0.11-0.59) K/uL Eos # (Auto) 0.10 (0.00-0.50) K/uL Baso # (Auto) 0.06 (0.00-0.20) K/uL Immature Gran # (Auto) 0.06 (0.01-0.20) K/uL PT 11.4 (9.0-12.0) Seconds INR 1.1 (0.9-1.1) APTT 26 (21-31) Seconds PTT Ratio 1.0 Sodium 134 L (136-145) mmol/L Potassium 4.2 (3.5-5.1) mmol/L Chloride 103 (98-107) mmol/L Carbon Dioxide 23 (21-32) mmol/L Anion Gap 8 (3-11) BUN 26 H (6-23) mg/dl Creatinine 1.51 H (0.6-1.2) mg/dl Est Cr Clr Drug Dosing 35.6 ml/min eGFR 36.28 BUN/Creatinine Ratio 17.2 (10-20) Glucose 279 H (70-99(Fasting)) mg/dl Calcium 8.1 L (8.6-10.3) mg/dl Total Bilirubin 0.7 (0.2-1.0) mg/dl AST 13 (13-39) U/L ALT 10 (7-52) U/L Alkaline Phosphatase 45 (34-104) U/L Troponin I High Sens 4.3 (0-14) pg/ml Total Protein 7.1 (6.0-8.3) gm/dl Albumin 3.7 (3.4-5.0) gm/dl Globulin 3.4 (2.5-4.0) gm/dl Albumin/Globulin Ratio 1.1 (0.9-2) Imaging Data Attestation: I personally reviewed and interpreted this imaging study as follows: Radiologist's Impression: Chest X-Ray 11/09/24 20:44 Exam(s): XR CXR 1 VIEW EXAM: XR Chest, 1 View CLINICAL HISTORY: Reason for exam: Chest pain, nonspecific. TECHNIQUE: Frontal view of the chest. COMPARISON: X-ray chest: 09/08/2024 FINDINGS: Lungs: Lung volumes are normal. Bilateral mild bronchial cuffing and perihilar prominent bronchovascular markings remain with interval improvement. No consolidation. Pleural space: Blunting of right costophrenic sulcus. No pneumothorax. Heart: Mild cardiomegaly. Mediastinum: Unremarkable. Normal mediastinal contour. Bones/joints: Unremarkable. No acute fracture. Other findings: Possibly a moderate size hiatal hernia. IMPRESSION: . Cardiomegaly and mild pulmonary vascular congestion remains with improvement since comparison. Electronically signed by: Zechariah Celis MD, DABR 11/09/24 23:04 PM MDM Narrative Prior records/ancillary studies reviewed and summarized above. Nursing notes reviewed. Additional history obtained from family. The patient's history was concerning for family. Differential diagnosis: Etiologies such as metabolic, infection, hypo/hyperglycemia, electrolyte abnormalities, cardiac sources, intracerebral event, toxicologic, neurologic, as well as others were entertained. Physical examination: As above. ER treatment provided: IV Lock An order was placed for continuous cardiac monitoring. The monitor shows a rate of 50-100 with a sinus rhythm per my interpretation. Cortef, IV fluids On reassessment the patient felt better. Diagnostics interpretation by me: ECG: Ordered for weakness EKG: Normal sinus, normal intervals, no acute ST-T wave changes, rate of 60. Impression normal sinus rhythm independently interpreted by myself The labs Independently Interpreted by myself revealed mild anemia, negative troponin, hyperglycemia without DKA Imaging studies: Imaging was reviewed and read by radiology Consultation: A consultation was placed with the hospitalist. The case was discussed and diagnostics were reviewed. The patient was evaluated in the ER for further treatment. Exam and history seem consistent with symptomatic hypotension that has improved. Patient is on chronic prednisone. He did opt to give her some Cortef. Medicine was consulted and the case was discussed. She will be evaluated for admission. By the evaluation outlined above emergent etiologies such as infection, electrolyte abnormalities, intracerebral event, toxologic, neurologic, metabolic, as well as others were deemed relatively unlikely. The pt informed about the findings as listed above. All questions were answered and pleased with the treatment. The chart was completed utilizing [employer] Speech voice recognition software. Grammatical errors, random word insertions, pronoun errors, and incomplete sentences are an occassional consequence of this system due to software limitations, ambient noise, and hardware issues. Any formal questions or concerns about the content, text, or information contained within the body of this dictation should be directly addressed to the physician therapy administrative assistant for clarification. Impression & Plan Acute hypotension, Acute hyperglycemia, Light-headedness Discharge Plan Visit Data Chief Complaint: Hypotension Stated Complaint: ACUTE AORTIC STENOSIS,LOW BP ED Provider: Alfredo Mills ED Midlevel Provider: Rachna Villarreal Discharge Problem: Acute hypotension, Acute hyperglycemia, Light-headedness Patient Disposition: Being Evaluated by Hospitalist Condition: Good Forms Stand Alone Forms: [facility] [facility] Prescriptions Prescriptions: No Action Advanced Probiotic 625 mg (10 billion cell) capsule 1 cap PO DAILY Qty: 10 0RF Rx Instructions: Unable to verify w/ pt at this date/time. --PER PT SHE ONLY TAKES 1 DAY. CONFIRMED ON 09/11. oxycodone 10 mg tablet 10 mg PO BID PRN (Reason: pain) Qty: 60 0RF Novolin N NPH U-100 Insulin 100 unit/mL suspension See Rx Instructions subcut BIDM Qty: 10 3RF Rx Instructions: 35 UNITS IN THE A.M. AND 25 UNITS IN THE P.M. subcutaneously twice daily with meals; ADMINISTER BEFORE BREAKFAST AND DINNER Baqsimi 3 mg/actuation spray,non-aerosol 3 mg intranasal ONCE Qty: 1 3RF Rx Instructions: Use as needed for hypoglycemia Jardiance 25 mg tablet 25 mg PO DAILY Qty: 30 5RF Rx Instructions: Take one tablet by mouth daily. miconazole nitrate 2 % cream 1 applic topical DAILY Qty: 42.5 1RF omeprazole 40 mg capsule,delayed release(DR/EC) 40 mg PO DAILYBB Qty: 90 0RF Rx Instructions: TAKE THIS MEDICATION ONCE DAILY ONE HOUR BEFORE FIRST MEAL OF THE DAY metoprolol succinate 100 mg tablet extended release 24 hr 50 mg PO QPM Qty: 60 0RF amlodipine 5 mg tablet 5 mg PO QAM famotidine 20 mg tablet 20 mg PO HS nitroglycerin 0.4 mg tablet, sublingual 0.4 mg Sublingual UD PRN (Reason: Chest Pain) Rx Instructions: PLACE ONE TABLET UNDER THE TONGUE EVERY 5 MINUTES FOR UP TO 3 DOSES OVER 15 MINUTES IF NEEDED FOR CHEST PAIN prasugrel 10 mg tablet 10 mg PO QAM aspirin 81 mg Tablet,Delayed Release (Dr/Ec) 81 mg PO QAM lisinopril 10 mg tablet 10 mg PO HS metformin 500 mg tablet extended release 24 hr 500 mg PO HS furosemide 20 mg tablet 20 mg PO UD Rx Instructions: Take 40mg by mouth on Mon/Tue/Fri and 20mg all other days. rosuvastatin 40 mg tablet 40 mg PO PM gabapentin 300 mg capsule 300 mg PO BID Patient Comments: patient not sure of dosage diclofenac sodium 1 % Gel 2 g TOPICAL QID PRN (Reason: Pain) Rx Instructions: Unable to verify w/ pt at this date/time. isosorbide mononitrate 30 mg tablet extended release 24 hr 30 mg PO DAILY citalopram 20 mg tablet 20 mg PO QAM prednisone 10 mg tablet See Rx Instructions .ROUTE .COMPLEX Qty: 12 0RF Rx Instructions: 10 mg orally 3 times a day for 2 days, then 10 mg twice a day for 2 days, then 10 mg once a day for 2 days, then stop Referrals Referrals: Shyla Rodney DO [Primary Care Provider] -
[2024-11-10 00:39] LABS: Magnesium 2.4 mg/dl (1.7-2.4)
[2024-11-10 00:46] LABS: Troponin I High Sensitivity 4.9 pg/ml (0-14)
[2024-11-10 00:55] LABS: Thyroid Stimulating Hormone 1.107 uIu/ml (0.300-4.500)
[2024-11-10] MEDS ORDERED: MAGNESIUM HYDROXIDE SUSP 30 ML UDC PO PRN (02:23)
[2024-11-10] MEDS ORDERED: POLYETHYLENE (MIRALAX) 17 GM PACK PO PRN (02:23)
[2024-11-10] MEDS ORDERED: DEXTROSE 50% 50 ML SYRINGE IV PRN (02:23)
[2024-11-10] MEDS ORDERED: GLUCAGON FOR INJ 1 MG VIAL SQ PRN (02:23)
[2024-11-10] MEDS ORDERED: GLUCOSE 40% GEL 15 GM TUBE PO PRN (02:23)
[2024-11-10] MEDS ORDERED: CARBOHYDRATES FOR HYPOGLYCEMIA PO PRN (02:23)
[2024-11-10] MEDS ORDERED: ONDANSETRON INJ 2 MG/ML 2 ML VIAL IV PRN (02:23)
[2024-11-10] MEDS ORDERED: GLUCOSE 10 TAB/TUBE PO PRN (02:23)
[2024-11-10] MEDS ORDERED: ALUMINUM/MAGNESIUM SUSP 30 ML UDC PO PRN (02:23)
[2024-11-10] MEDS ORDERED: ACETAMINOPHEN 500 MG TAB PO PRN (02:23)
[2024-11-10] MEDS: GABAPENTIN 300 MG CAP PO SCH (03:12)
[2024-11-10] MEDS: PANTOprazole 40 MG TAB PO SCH (05:22)
--- NOTE | 2024-11-10 05:44 | Billing Data ---
Date of Service November 10, 2024 Coding Level of Care Code 10849 INT INP/OBS CARE
[2024-11-10] MEDS: HYDROCORTISONE SOD 50 MG in SYRINGE 0 ML IV SCH (06:31)
[2024-11-10 06:46] LABS: Basophils # (auto) 0.04 K/uL (0.00-0.20); Basophils % (auto) 0.6 %; Eosinophils # (auto) 0.01 K/uL (0.00-0.50); Eosinophils % (auto) 0.1 %; Hemoglobin 11.2 g/dl (12.0-16.0); Immature Granulocytes # (auto) 0.06 K/uL (0.01-0.20); Immature Granulocytes % (auto) 0.9 %; Lymphocytes # (auto) 0.97 K/uL (1.20-3.40); Lymphocytes % (auto) 14.4 %; Mean Corpuscular Hgb Conc 31.1 g/dL (32.0-36.0); Mean Corpuscular Volume 80.4 fL (80.0-100.0); Mean Platelet Volume 9.5 fL (9.4-12.4); Neutrophils # (auto) 5.47 K/uL (1.40-6.50); Platelet Count 312 K/uL (130-400); RDW Coefficient of Variation 17.1 % (11.5-14.5); RDW Standard Deviation 49.6 fL (36.4-46.3); Red Blood Count 4.48 M/uL (4.20-5.40); White Blood Count 6.75 K/ul (4.8-10.8)
[2024-11-10 07:02] LABS: BUN Creatinine Ratio 19.1 (10-20); Calcium 8.7 mg/dl (8.6-10.3); Creatinine Clr Calc Pharmacy 40.8 ml/min; Potassium 4.3 mmol/L (3.5-5.1)
--- NOTE | 2024-11-10 07:29 | Electrocardiogram Report ---
Test Reason : Blood Pressure : */* mmHG Vent. Rate : 60 BPM Atrial Rate : 60 BPM P-R Int : 158 ms QRS Dur : 92 ms QT Int : 448 ms P-R-T Axes : 39 16 35 degrees QTcB Int : 448 ms Normal sinus rhythm Minimal voltage criteria for LVH, may be normal variant ( Joaquín product ) Borderline ECG When compared with ECG of 06-Sep-2024 08:20, No significant change was found Confirmed by Blake Deleon ([id number]) on 11/10/2024 7:28:48 AM Referred By: REFERRED SELF Confirmed By: Blake Deleon
[2024-11-10] MEDS: CITALOPRAM 20 MG TAB PO SCH (08:09)
[2024-11-10] MEDS: ASPIRIN 81 MG ECTAB PO SCH (08:09)
[2024-11-10] MEDS: PRASugrel TAB 10 MG TAB PO SCH (08:09)
[2024-11-10] MEDS ORDERED: HYDROCORTISONE SOD SUCCINATE 100 MG/2 ML VIAL IV SCH (09:00)
[2024-11-10] MEDS ORDERED: ISOSORBIDE MONO EXTENDED REL 30 MG TABCR PO SCH (09:00)
[2024-11-10] MEDS ORDERED: HYDROCORTISONE SOD 25 MG in SYRINGE 0 ML IV SCH (09:00)
[2024-11-10] MEDS: LANTUS PER UNIT CHARGE SQ SCH (09:08)
[2024-11-10] MEDS: INSULIN ASPART PER UNIT CHARGE SC SCH (09:09)
[2024-11-10] MEDS: HEPARIN SOD 5,000 UNIT/0.5 ML VIAL SQ SCH (09:11)
[2024-11-10 12:28] LABS: Appearance Urine Clear (Clear); Bacteria Urine Automated None Seen (None Seen); Bilirubin Urine Negative (Negative); Blood Urine Negative (Negative); Cast Urine Automated 0-2 /lpf (0-2); Color Urine Yellow; Glucose Urine UA 2+ (Negative); Ketones Urine Negative (Negative); Leukocyte Esterase Urine Negative (Negative); Nitrite Urine Negative (Negative); Protein Urine 1+ (Negative); RBC Urine Automated 0-2 /hpf (0-2); Specific Gravity Urine 1.031 (1.000-1.030); Urobilinogen Urine Negative (Negative); WBC Urine Automated 0-5 /hpf (0-5); pH Urine 6.5 (4.5-7.5)
--- NOTE | 2024-11-10 12:58 | Hospitalist Progress Note ---
Date of Service November 10, 2024 Assessment & Plan (1) Hypotension: (2) Severe aortic stenosis: (3) CAD (coronary artery disease): (4) Osteoarthritis: (5) VINCE (obstructive sleep apnea): (6) Hyperlipidemia: (7) DM type 2 (diabetes mellitus, type 2): (8) CKD stage 3b, GFR 30-44 ml/min: (9) GERD (gastroesophageal reflux disease): Plan The patient is a 74-year-old female with a past medical history including severe aortic stenosis, bicuspid aortic valve, CAD, CKD, hypertension, hyperlipidemia, GERD, peripheral vascular disease, diabetes mellitus type 2 on insulin, severe osteoarthritis, who presents to the emergency department with progressive lethargy, dizziness, and found to be hypotensive with a systolic pressure. She is presently undergoing an evaluation at [facility] for aortic valve replacement. Recently decrease metoprolol succinate dosing from 100 to 50 mg daily due to increasing fatigue. Takes chronic prednisone for arthritis, was given stress dose steroids in the ER, but no cortisol level was obtained. #Hypotension/Aortic Stenosis/CAD Follows with [facility] (Dr. Hayden, Dr. Sahil Griffin is her surgeon) - undergoing workup for AVR Further decrease dose of metoprolol to 25mg daily. Continue Imdur, ASA BP normotensive but lisinopril/amlodipine/lasix held Decrease steroids to home dose - no signs of infection or acute stress. Will monitor BP on home dose. Check UA. #T2DM A1c pending. Hold metformin Continue Jardiance Insulin glargine 21U BID + SSI #OA Continue oxycodone BID Continue gabapentin Resume home dose steroids #VINCE - untreated #CKD III - Cr at baseline #GERD -continue Pepcid and PPI #HLD - Continue Crestor Dispo: continued inpatient stay, monitoring BP Dvt proh: heparin family updated at bedside 11/10 Admission and Anticipated Discharge Date Admission Date: November 09, 2024 Subjective Patient seen lying in bed. She had a borderline low blood pressure at her PCP appointment and then took it at home and was ~80s/40s. was not symptomatic at this time. but earlier in the day felt lightheaded when at the grocery store. 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 No illness sympotms - no cough, SOB, no urinary symptoms Tele SB/SR 50-60s Review of Systems Review of Systems: All systems reviewed & are unremarkable except as noted in Subjective Physical Exam Physical Exam: General: NAD, VS as above HEENT: MMM Resp: normal respiratory effort, lungs clear to auscultation CV: RRR, + murmur, Abd: normal bowel sounds, non tender, no hepatosplenomegaly Extremities: Moves all extremities, no edema Neuro: A&O x3, Results & Data Results & Data Vital Signs (Past 12 Hours) Vital Signs Temp Pulse Pulse Resp BP BP BP 11/10/24 12:04 57 L 11/10/24 11:33 97.5 F L 83 18 118/69 11/10/24 07:51 97.7 F 55 L 19 111/67 11/10/24 07:28 11/10/24 02:38 59 L 11/10/24 02:30 97.6 F 60 17 149/73 H 11/10/24 01:56 11/10/24 01:33 57 L 14 111/53 L 11/10/24 01:02 57 L 17 133/48 L Pulse Ox O2 Del Method 11/10/24 12:04 11/10/24 11:33 94 Room Air 11/10/24 07:51 97 Room Air 11/10/24 07:28 Room Air 11/10/24 02:38 11/10/24 02:30 95 Room Air 11/10/24 01:56 Room Air 11/10/24 01:33 94 11/10/24 01:02 96 Laboratory Results CBC, chemistry and TSH reviewed PG Care Time/CCT Total # of Minutes Spent Total Time Spent with Patient: Total time spent is greater than 50% in coordination of care (as documented) at patient's floor/unit and/or counseling patient: Coding Level of Care Code 60050 SUB INP/OBS CARE 3/50MIN Diagnoses Hypotension I95.9 Severe aortic stenosis I35.0 CAD (coronary artery disease) I25.10 Osteoarthritis M19.90 VINCE (obstructive sleep apnea) G47.33 Mixed hyperlipidemia E78.2 Hyperlipidemia type: mixed hyperlipidemia Type 2 diabetes mellitus with diabetic nephropathy, with long-term current use of insulin E11.21; Z79.4 Diabetes mellitus complication detail: with nephropathy Diabetes mellitus complication status: with kidney complications Diabetes mellitus group home insulin use: with terminal make up operator use CKD stage 3b, GFR 30-44 ml/min N18.32 GERD (gastroesophageal reflux disease) K21.9 (6) Hyperlipidemia Hyperlipidemia type: mixed hyperlipidemia Qualified Code(s): E78.2 - Mixed hyperlipidemia (7) DM type 2 (diabetes mellitus, type 2) Diabetes mellitus complication detail: with nephropathy Diabetes mellitus complication status: with kidney complications Diabetes mellitus terminal make up operator insulin use: with terminal make up operator use Qualified Code(s): E11.21 - Type 2 diabetes mellitus with diabetic nephropathy; Z79.4 - group home (current) use of insulin
[2024-11-10] MEDS: ISOSORBIDE MONO EXTENDED REL 30 MG TABCR PO SCH (14:33)
[2024-11-10] MEDS: oxyCODONE HCL IR 5 MG TAB (IMMEDIATE RELEASE) PO PRN (16:36)
[2024-11-10] MEDS: ROSUVASTATIN CALCIUM 20 MG TAB PO SCH (21:20)
[2024-11-10] MEDS: FAMOTIDINE 20 MG TAB PO SCH (21:21)
[2024-11-10] MEDS: SODIUM CHLORIDE 0.65% NA SOLN 45 ML (OCEAN) PRN (22:48)
[2024-11-11] MEDS: DICLOFENAC SOD 1% GEL 100 GM TUBE EXT SCH (08:53)
[2024-11-11] MEDS: predniSONE 2.5 MG TAB PO SCH (09:36)
--- NOTE | 2024-11-11 11:30 | Discharge Summary ---
Discharge Summary Date of Service November 11, 2024 Principal Dx & Hospital Course #1 = Principal Diagnosis (1) Hypotension: (2) Severe aortic stenosis: (3) CAD (coronary artery disease): (4) Osteoarthritis: (5) VINCE (obstructive sleep apnea): (6) Hyperlipidemia: (7) DM type 2 (diabetes mellitus, type 2): (8) CKD stage 3b, GFR 30-44 ml/min: (9) GERD (gastroesophageal reflux disease): Plan #Hypotension/Aortic Stenosis/CAD The patient is a 74-year-old female with a past medical history including severe aortic stenosis, bicuspid aortic valve, CAD, CKD, hypertension, hyperlipidemia, GERD, peripheral vascular disease, diabetes mellitus type 2 on insulin, severe osteoarthritis, who presents to the emergency department with progressive lethargy, dizziness, and found to be hypotensive with a systolic pressure. She is presently undergoing an evaluation at [facility] for aortic valve replacement (Dr. Sahil Griffin) and follows with Dr. Catracho reyez. Recently decrease metoprolol succinate dosing from 100 to 50 mg daily due to increasing fatigue. Takes chronic prednisone for arthritis, was given stress dose steroids in the ER, but no cortisol level was obtained. Restarted on home dose steroids today and blood pressure as has been stable. UA negative, no other signs on infection. Orthostatic vital signs normal. Lasix changed to prn. Metoprolol further decreased to 25mg HS. Lisinopril decreased to 5mg with hold parameters. Continue imdur. Amlodopine discontinued. Discussed importance of good hydration with aortic stenosis. #T2DM A1c pending. No changes to home regimen #OA Continue oxycodone BID and gabapentin Resume home dose steroids #VINCE - untreated #CKD III - Cr at baseline #GERD -continue Pepcid and PPI #HLD - Continue Crestor Dispo: discharge to home today family updated at bedside 11/10 updated son by phone 11/11 Notes For Next Care Provider Lasix changed to prn. Metoprolol further decreased to 25mg HS. Lisinopril decreased to 5mg with hold parameters. Continue imdur. Amlodipine discontinued. Discussed importance of good hydration with aortic stenosis. Admission HPI Per Admitting Provider 74 yo female PMHx severe aortic stenosis, bicuspid aortic valve, CAD, CKD, HTN, HLD, GERD, PVD, T2DM on insulin, severe osteoarthritis admitted for lethargy, dizziness and found to be hypotensive. Over the last few weeks, pt has been experiencing progressive lethargy stating that she has been unable to achieve her usual level of activity. This morning she was seen at her PCP office and found to be hypotensive and was recommended to present to the emergency department. She is currently being evaluated for aortic valve replacement with [facility]. Follows with [facility] cardiology and her metoprolol dose was recently decreased from 100mg daily to 50mg daily due to her increasing fatigue. She was on a short course of steroids in August. Currently the patient is feeling fatigued, no current dizziness, denies CP, SOB, N/V/D, LE edema ED course: Given hydrocortisone 100mg Discharge Exam General: NAD, VS as above HEENT: MMM Resp: normal respiratory effort, lungs clear to auscultation CV: RRR, + murmur, Abd: normal bowel sounds, non tender, no hepatosplenomegaly Extremities: Moves all extremities, no edema Neuro: A&O x3, Discharge Plan Discharge Items Patient Disposition: Home - Self-Care Reason For Visit: HYPOTENSION Discharge Diagnosis: Hypotension Condition on Discharge: Good Activity: Resume your previous activity Weightbearing: Full weightbearing Non-emergency contact: Primary Care Provider Call non-emergency contact if: you have any medication questions, your symptoms worsen and your temperature is above 101 Follow-up/Referrals: Shyla Rodney DO [Primary Care Provider] - Diet: Carb Consistent or DM2 and Heart Healthy Addtl Attending Provider Instructions: Ms. London, You were hospitalized after having low blood pressure - this was likely a combination of too much medication and dehydration. Your blood pressures have been well controlled here, and after making medication adjustments it is safe to discharge you home. Recommendations/Changes: * Change your lasix to as needed. Monitor daily for weight gain of 2-3# from day prior or pitting edema (where if you push on your leg the imprint stays). If this occurs please take your medication * Stop the amlodipine * Continue the lisinopril but decrease the dose to 5mg. Please take your blood pressure each night, if it is below 105/60 do not take this medication. * Continue to take the metoprolol but decrease dose to 25mg nightly. * Continue imdur as prescribed. * Make sure that you are staying well hydrated as your heart valve depends on this. * If you have a low blood pressure and you are NOT feeling light headed or dizzy - leg pumps or high knee exercises can help to bring your blood pressure up. * Keep a recording of the blood pressures, and take them to your next cardiology appointment. These should be take at various times of day. Continue to follow up with your cardiology team. I have sent them notification about your hospital stay. Activity: You can do normal everyday activities as your body allows. Take rest breaks if you feel tired. Do not overexert. Stop activity if you have pain, shortness of breath or feel dizzy or lightheaded. Follow-up appointments: Make an appointment with your primary care physician within one week of discharge. A copy of this summary will be sent to them. Every time you see your primary care physician, or any other doctor, bring your medication list, and a list of questions. CONTACT YOUR PRIMARY CARE PROVIDER if you experience any of the following: Shortness of breath or difficulty breathing Fevers or chills Feeling tired with normal activity or experiencing dizziness or fainting Difficulty following your treatment plan, or difficulty taking medications CALL 911 OR GO TO THE EMERGENCY DEPARTMENT if you experience any of the following: Severe abdominal pain or nausea/vomiting Severe chest pain, or chest pain that radiates (moves) to your jaw or arm Sudden, severe shortness of breath or difficulty breathing Thank you for allowing us to participate in your care. Pending Studies at Discharge: Yes (a1c) Stand-Alone Forms: [facility], Smoking Cessation Medications and DC Order Prescriptions: New metoprolol succinate 25 mg Tablet Extended Release 24 Hr 25 mg PO HS Qty: 30 0RF lisinopril 5 mg tablet 5 mg PO DAILY Qty: 30 0RF Continued Advanced Probiotic 625 mg (10 billion cell) capsule 1 cap PO DAILY Qty: 10 0RF Rx Instructions: Unable to verify w/ pt at this date/time. --PER PT SHE ONLY TAKES 1 DAY. CONFIRMED ON 09/11. oxycodone 10 mg tablet 10 mg PO BID PRN (Reason: pain) Qty: 60 0RF Novolin N NPH U-100 Insulin 100 unit/mL suspension See Rx Instructions subcut BIDM Qty: 10 3RF Rx Instructions: 35 UNITS IN THE A.M. AND 25 UNITS IN THE P.M. subcutaneously twice daily with meals; ADMINISTER BEFORE BREAKFAST AND DINNER Baqsimi 3 mg/actuation spray,non-aerosol 3 mg intranasal ONCE Qty: 1 3RF Rx Instructions: Use as needed for hypoglycemia Jardiance 25 mg tablet 25 mg PO DAILY Qty: 30 5RF Rx Instructions: Take one tablet by mouth daily. miconazole nitrate 2 % cream 1 applic topical DAILY Qty: 42.5 1RF omeprazole 40 mg capsule,delayed release(DR/EC) 40 mg PO DAILYBB Qty: 90 0RF Rx Instructions: TAKE THIS MEDICATION ONCE DAILY ONE HOUR BEFORE FIRST MEAL OF THE DAY famotidine 20 mg tablet 20 mg PO HS nitroglycerin 0.4 mg tablet, sublingual 0.4 mg Sublingual UD PRN (Reason: Chest Pain) Rx Instructions: PLACE ONE TABLET UNDER THE TONGUE EVERY 5 MINUTES FOR UP TO 3 DOSES OVER 15 MINUTES IF NEEDED FOR CHEST PAIN prasugrel 10 mg tablet 10 mg PO QAM aspirin 81 mg Tablet,Delayed Release (Dr/Ec) 81 mg PO QAM metformin 500 mg tablet extended release 24 hr 500 mg PO HS rosuvastatin 40 mg tablet 40 mg PO PM gabapentin 300 mg capsule 300 mg PO BID Patient Comments: patient not sure of dosage diclofenac sodium 1 % Gel 2 g TOPICAL QID PRN (Reason: Pain) Rx Instructions: Unable to verify w/ pt at this date/time. isosorbide mononitrate 30 mg tablet extended release 24 hr 30 mg PO DAILY citalopram 20 mg tablet 20 mg PO QAM prednisone 7.5 mg PO DAILY Changed furosemide 20 mg tablet 20 mg PO UD PRN (Reason: Edema) Qty: 0 0RF Rx Instructions: 20mg qAM daily. 20mg qHS M/w/f Discontinued metoprolol succinate 100 mg tablet extended release 24 hr 50 mg PO QPM Qty: 60 0RF amlodipine 5 mg tablet 5 mg PO QAM lisinopril 10 mg tablet 10 mg PO HS Discharge Orders: Discharge Order (Routine); Ordered 11/11/24 Ordered By: Carly Alarcon/Other Patient Handouts: Hypotension Dc Admission Data Admit Date/Time: 11/09/24 23:40 Attending Provider: Kt Evans Admit Provider: Agus Flowers Primary Care Provider: Shyla Rodney Other Providers: Jarod Malik Hospital Stay Data Consultations 11/09/24 22:57 ED Decision to Admit Stat Diagnostic Imagining Performed Chest X-Ray 11/09/24 20:44 Exam(s): XR CXR 1 VIEW EXAM: XR Chest, 1 View CLINICAL HISTORY: Reason for exam: Chest pain, nonspecific. TECHNIQUE: Frontal view of the chest. COMPARISON: X-ray chest: 09/08/2024 FINDINGS: Lungs: Lung volumes are normal. Bilateral mild bronchial cuffing and perihilar prominent bronchovascular markings remain with interval improvement. No consolidation. Pleural space: Blunting of right costophrenic sulcus. No pneumothorax. Heart: Mild cardiomegaly. Mediastinum: Unremarkable. Normal mediastinal contour. Bones/joints: Unremarkable. No acute fracture. Other findings: Possibly a moderate size hiatal hernia. IMPRESSION: . Cardiomegaly and mild pulmonary vascular congestion remains with improvement since comparison. Electronically signed by: Zechariah Celis MD, DABR 11/09/24 23:04 PM Pending Results Patient Have Any Pending Studies at Discharge: No Discharge Instructions Given to Patient (Per Discharging Provider) Ms. London, You were hospitalized after having low blood pressure - this was likely a combination of too much medication and dehydration. Your blood pressures have been well controlled here, and after making medication adjustments it is safe to discharge you home. Recommendations/Changes: * Change your lasix to as needed. Monitor daily for weight gain of 2-3# from day prior or pitting edema (where if you push on your leg the imprint stays). If this occurs please take your medication * Stop the amlodipine * Continue the lisinopril but decrease the dose to 5mg. Please take your blood pressure each night, if it is below 105/60 do not take this medication. * Continue to take the metoprolol but decrease dose to 25mg nightly. * Continue imdur as prescribed. * Make sure that you are staying well hydrated as your heart valve depends on this. * If you have a low blood pressure and you are NOT feeling light headed or dizzy - leg pumps or high knee exercises can help to bring your blood pressure up. * Keep a recording of the blood pressures, and take them to your next cardiology appointment. These should be take at various times of day. Continue to follow up with your cardiology team. I have sent them notification about your hospital stay. Activity: You can do normal everyday activities as your body allows. Take rest breaks if you feel tired. Do not overexert. Stop activity if you have pain, shortness of breath or feel dizzy or lightheaded. Follow-up appointments: Make an appointment with your primary care physician within one week of discharge. A copy of this summary will be sent to them. Every time you see your primary care physician, or any other doctor, bring your medication list, and a list of questions. CONTACT YOUR PRIMARY CARE PROVIDER if you experience any of the following: Shortness of breath or difficulty breathing Fevers or chills Feeling tired with normal activity or experiencing dizziness or fainting Difficulty following your treatment plan, or difficulty taking medications CALL 911 OR GO TO THE EMERGENCY DEPARTMENT if you experience any of the following: Severe abdominal pain or nausea/vomiting Severe chest pain, or chest pain that radiates (moves) to your jaw or arm Sudden, severe shortness of breath or difficulty breathing Thank you for allowing us to participate in your care. Total Time Total Time Spent Total Time Spent (In Minutes): Time spent day of discharge 35 minutes including direct patient care, medication reconciliation, documentation, review of labs and images, and coordination of care. 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
[2024-11-11 11:48] VITALS: BP 146/75; PULSE 73; RESP 20; TEMP 97.5; O2SAT 100
[2024-11-11] MEDS ORDERED: METOPROLOL SUCC 25MG EXT REL TAB PO SCH (21:00)
[2024-11-13 12:05] LABS: Estimated Average Glucose 186 mg/dl; Hemoglobin A1C 8.1 % (4.5-5.6)
== END 2024-11-11 13:39 | disposition home or self-care (01) | DRG 312 ==
LOC: SUATTDRO → ED 20:33 → SUATTDRO 23:40 → 2N 23:40